=== PATIENT | female | born 1930 | race Hispanic/Latino ===

== ENCOUNTER 2016-09-09 00:33 | Inpatient (IN) | payer MEDICARE ==
[2016-09-09] MEDS ORDERED: Levalbuterol 1.25 MG/3 ML Inhal Soln UD IH STA ×2 (01:14)
[2016-09-09] MEDS ORDERED: Ipratropium 0.02% Inhal Soln (0.5 mg/2.5 ml) UD IH STA ×2 (01:14→01:15)
--- NOTE | 2016-09-09 01:15 | ED PDOC ---
Arrival/HPI - General Chief Complaint: Shortness Of Breath Time Seen by Provider: 09/09/16 01:08 Historian: Patient - History of Present Illness Narrative History of Present Illness (Text): 09/09/16 01:12 Ana Galarza is an 86 year old female, whose past medical history includes whose past medical history includes COPD, recurrent bronchitis, hypertension, and CAD, who presents to the Emergency department complaining of shortness of breath since yesterday morning. Patient states she has been using nebulizer treatments at home without significant relief. Patient also complaining of worsening swelling to bilateral lower extremities after she twisted her left leg 1 week ago. Patient denies any fever, chills, chest pain, cough, nausea, vomiting, diarrhea, urinary symptoms, back pain, neck pain, vision changes, headache, dizziness, or any other complaints. PMD: Dr. 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 ago cabg - Pulmonary Hx Chronic Obstructive Pulmonary Disease (COPD): Yes (has homenebulizer machine) - HEENT Hx HEENT Disorder: Yes Hx Cataracts: Yes (bilateral sx) - Integumentary Hx Dermatological Disorder: Yes Other/Comment: dry skin ble, light brown moles over back, chest, abd - Musculoskeletal/Rheumatological Hx Falls: No - Gastrointestinal Hx Gastrointestinal Disorders: Yes Hx Diverticulitis: Yes Hx Gastroesophageal Reflux: Yes - Genitourinary/Gynecological Hx Genitourinary Disorders: Yes Hx Incontinence: Yes (stress when coughing) - Psychiatric Hx Depression: No Hx Emotional Abuse: No Hx Physical Abuse: No Hx Substance Use: No - Surgical History Hx Cholecystectomy: Yes - Anesthesia Hx Anesthesia: No Hx Anesthesia Reactions: No Hx Malignant Hyperthermia: No - Suicidal Assessment Feels Threatened In Home Enviroment: No Family/Social History - Physician Review Nursing Documentation Reviewed: Yes Family/Social History: No Known Family HX Smoking Status: Never Smoked Hx Alcohol Use: No Hx Substance Use: No Hx Substance Use Treatment: No Allergies/Home Meds Allergies/Adverse Reactions: Allergies No Known Allergies Allergy (Verified 09/09/16 00:51) Home Medications: Home Meds Medication Instructions Recorded Confirmed Amlodipine Besylate 5 mg PO DAILY 11/30/11 03/26/15 Atorvastatin Calcium [Lipitor] 20 mg PO DAILY 11/30/11 03/26/15 Metoprolol Succinate [Toprol XL] 50 mg PO DAILY 11/30/11 03/26/15 Omeprazole 20 mg PO DAILY 11/30/11 03/26/15 Ramipril 5 mg PO DAILY 11/30/11 03/26/15 Alprazolam [Xanax] 0.25 mg PO BID 07/19/14 03/26/15 Primidone 50 mg PO DAILY 07/19/14 03/26/15 Review of Systems - Physician Review All systems were reviewed & negative as marked: Yes - Review of Systems Constitutional: Normal. absent: Fevers Eyes: Normal. absent: Vision Changes ENT: Normal Respiratory: SOB. absent: Cough Cardiovascular: Normal. absent: Chest Pain Gastrointestinal: Normal. absent: Abdominal Pain, Diarrhea, Nausea, Vomiting Genitourinary Female: Normal. absent: Dysuria, Frequency, Hematuria, Urine Output Changes Musculoskeletal: Other (+BLE swelling). absent: Back Pain, Neck Pain Skin: Normal Neurological: Normal. absent: Headache, Dizziness Endocrine: Normal Hemo/Lymphatic: Normal Psychiatric: Normal Physical Exam Vital Signs Reviewed: Yes Vital Signs Temp Pulse Resp BP Pulse Ox 09/09/16 07:19 126 H 18 148/101 H 09/09/16 04:30 138/89 09/09/16 02:35 128 H 178/75 H 09/09/16 01:16 18 09/09/16 00:51 97.6 F 129 H 25 H 135/76 97 Temperature: Afebrile Blood Pressure: Normal Pulse: Tachycardic Respiratory Rate: Normal Appearance: Positive for: Well-Appearing, Non-Toxic, Comfortable Pain Distress: None Mental Status: Positive for: Alert and Oriented X 3 - Systems Exam Head: Present: Atraumatic, Normocephalic Pupils: Present: PERRL Extroacular Muscles: Present: EOMI Conjunctiva: Present: Normal Mouth: Present: Moist Mucous Membranes Neck: Present: Normal Range of Motion Respiratory/Chest: Present: Decreased Breath Sounds (Significantly decreased breath sounds bilaterally). No: Respiratory Distress, Accessory Muscle Use Cardiovascular: Present: Normal S1, S2, Irregular Rhythm (Irregular, regular), Tachycardic. No: Murmurs Abdomen: Present: Normal Bowel Sounds. No: Tenderness, Distention, Peritoneal Signs Upper Extremity: Present: Normal Inspection. No: Cyanosis, Edema Lower Extremity: Present: Edema (Trace edema to bilateral lower extremities), NORMAL PULSES, Tenderness (Tenderness over left 4th and 5th metatarsals) Neurological: Present: GCS=15, CN II-XII Intact, Speech Normal Skin: Present: Warm, Dry, Normal Color. No: Rashes Psychiatric: Present: Alert, Oriented x 3, Normal Insight, Normal Concentration Medical Decision Making ED Course and Treatment: 09/09/16 01:12 Impression: 86 year old female complaining of shortness of breath since yesterday, BLE swelling for 1 week. Plan: -- EKG -- Chest X-ray -- Labs, cardiac enzymes, D-dimer, BNP, blood cultures -- UA -- XR Left Foot -- US Duplex Lower Extremities -- Atrovent -- Xoponex -- Solu-medrol -- Reassess and disposition Prior Visits: Notes and results from previous visits were reviewed. Progress Notes: Reviewed EKG, a fib at 136 bpm. Previous EKG was sinus rhythm. Otherwise no ST/ T wave changes. Normal axis. 09/09/16 02:53 Reviewed radiology, Chest X-ray shows right-sided pleural effusion. 09/09/16 03:36 Reviewed sono, US Duplex Lower Extremities are negative for DVT. 09/09/16 05:56 Patient with CHF, COPD, and rapid afib. Case discussed with Dr. Cheatham, who is aware and agree with plan. Accepts pt in to his service. 09/09/16 08:05 CTA shows no PE. - Lab Interpretations Lab Results: 09/09/16 02:30 09/09/16 03:10 Lab Results 09/09/16 03:10: Sodium 142, Potassium 3.8, Chloride 106, Carbon Dioxide 27, Anion Gap 13, BUN 10, Creatinine 0.8, Est GFR ( Amer) > 60, Est GFR (Non- Af Amer) > 60, Random Glucose 103, Calcium 8.4, Magnesium 1.7, Total Bilirubin 0.5, AST 39, ALT 31, Alkaline Phosphatase 144 H, Lactate Dehydrogenase 587, Total Creatine Kinase 58, Troponin I < 0.01, NT-Pro-B Natriuret Pep 4120 H, Total Protein 6.5, Albumin 3.4, Globulin 3.1, Albumin/Globulin Ratio 1.1, Lipase 90 09/09/16 02:30: WBC 5.7 D, RBC 3.48 L, Hgb 10.1 L, Hct 32.4 L, MCV 93.1, MCH 29.0, MCHC 31.2, RDW 14.6 H, Plt Count 190, MPV 10.2, Gran % 68.7 H, Lymph % ( Auto) 20.6 L, [place] % (Auto) 8.4 H, Eos % (Auto) 1.6, Baso % (Auto) 0.7, Gran # 3.95, Lymph # 1.2, [place] # 0.5, Eos # 0.1, Baso # 0.04, PT 11.1, INR 1.03, APTT 27.3, D-Dimer, Quantitative 1.06 H I have reviewed the lab results: Yes - RAD Interpretation Radiology Orders: 09/09/16 01:12 FOOT LEFT 3 VIEWS ROUTINE [RAD] Stat 09/09/16 01:15 CHEST TWO VIEWS (PA/LAT) [RAD] Stat DUPLEX LOWER EXTRM VEIN BILAT [US] Stat 09/09/16 03:22 ANGIO CHEST PE PROTOCOL [CT] Stat Land Leveler: ED Physician - EKG Interpretation Interpreted by ED Physician: Yes Type: 12 lead EKG - Medication Orders Current Medication Orders: Alprazolam (Xanax) 0.25 mg PO BID PRN; Protocol PRN Reason: Anxiety Stop: 09/16/16 10:01 Atorvastatin Calcium (Lipitor) 20 mg PO DAILY [facility] Levalbuterol HCl (Xopenex) 0.63 mg IH TIDRESP MULUGETA Metoprolol Succinate (Toprol Xl) 50 mg PO DAILY [facility] Non-Formulary Medication (Amlodipine Besylate [Amlodipine Besylate]) 5 mg PO DAILY [facility] Non-Formulary Medication (Ramipril [Ramipril]) 5 mg PO DAILY [facility] Primidone (Mysoline) 50 mg PO DAILY [facility] Discontinued Medications Diltiazem HCl (Cardizem) 5 mg IVP STAT STA Stop: 09/09/16 01:17 Last Admin: 09/09/16 02:35 Dose: 5 MG MAR Pulse and Blood Pressure Document 09/09/16 02:35 DENICE (Rec: 09/09/16 02:36 DENICE [id number]) Pulse Pulse Rate (60-90) 128 Blood Pressure Blood Pressure (100/60-150/90) 178/75 IVP Administration Document 09/09/16 02:35 DENICE (Rec: 09/09/16 02:36 DENICE [id number]) Charges for Administration # of IVP Administrations 1 Diltiazem HCl (Cardizem) 5 mg IVP STAT STA Stop: 09/09/16 08:02 Furosemide (Lasix) 40 mg IVP STAT STA Stop: 09/09/16 02:57 Last Admin: 09/09/16 04:30 Dose: 40 MG MAR Blood Pressure Document 09/09/16 04:30 DENICE (Rec: 09/09/16 07:05 DENICE [id number]) Blood Pressure Blood Pressure (100/60-150/90) 138/89 IVP Administration Document 09/09/16 04:30 DENICE (Rec: 09/09/16 07:05 DENICE [id number]) Charges for Administration # of IVP Administrations 1 Furosemide (Lasix) Confirm Administered Dose 40 mg .ROUTE .STK-MED ONE Stop: 09/09/16 07:02 Last Admin: 09/09/16 07:55 Dose: Iodixanol (Visipaque 320 Mg/Ml 100 Ml) Confirm Administered Dose 100 ml IV .STK- MED ONE Stop: 09/09/16 05:[address] [place] (Atrovent) 0.5 mg IH STAT STA Stop: 09/09/16 01:15 Last Admin: 09/09/16 02:35 Dose: 0.5 MG Ipratropium [place] (Atrovent) 0.5 mg IH STAT STA Stop: 09/09/16 01:16 Last Admin: 09/09/16 02:57 Dose: 0.5 MG Levalbuterol HCl (Xopenex) 1.25 mg IH STAT STA Stop: 09/09/16 01:15 Last Admin: 09/09/16 02:35 Dose: 1.25 MG Levalbuterol HCl (Xopenex) 1.25 mg IH STAT STA Stop: 09/09/16 01:15 Last Admin: 09/09/16 02:57 Dose: 1.25 MG Methylprednisolone (Solu-Medrol) 125 mg IVP STAT STA Stop: 09/09/16 01:14 Last Admin: 09/09/16 02:35 Dose: 125 MG IVP Administration Document 09/09/16 02:35 DENICE (Rec: 09/09/16 02:35 DENICE [id number]) Charges for Administration # of IVP Administrations 1 - Scribe Statement The provider has reviewed the documentation as recorded by the Lizzibtimbo Larson Provider Attestation: All medical record entries made by the Lizzibtimbo were at my direction and personally dictated by me. I have reviewed the chart and agree that the record accurately reflects my personal performance of the history, physical exam, medical decision making, and the department course for this patient. I have also personally directed, reviewed, and agree with the discharge instructions and disposition. Disposition/Present on Arrival - Present on Arrival Any Indicators Present on Arrival: No History of DVT/PE: No History of Uncontrolled Diabetes: No Urinary Catheter: No History of Decub. Ulcer: No History Surgical Site Infection Following: None - Disposition Have Diagnosis and Disposition been Completed?: Yes Diagnosis: COPD exacerbation, Congestive heart failure, Rapid atrial fibrillation Disposition: HOSPITALIZED Disposition Time: 05:45 Patient Plan: Admission, Telemetry Patient Problems: Current Active Problems Problem Status Diagnosed COPD exacerbation Acute Condition: FAIR
[2016-09-09 02:40] LABS: ADD MANUAL DIFF? NO
[2016-09-09 03:03] LABS: BASO # 0.04 K/mm3 (0.0-2.0); BASO % 0.7 % (0.0-3.0); EOS # 0.1 (0.0-0.7); EOS % 1.6 % (1.5-5.0); GRAN # 3.95 (1.4-6.5); GRAN % 68.7 % (50.0-68.0); HEMATOCRIT 32.4 % (36.0-48.0); LYMPH # 1.2 (1.2-3.4); LYMPH % 20.6 % (22.0-35.0); MEAN CELL VOLUME 93.1 fL (80.0-105.0); MEAN CORPUSCULAR HGB CONC 31.2 g/dl (31.0-37.0); MEAN PLATELET VOLUME 10.2 fl (7.0-11.0); MONO # 0.5 (0.1-0.6); MONO % 8.4 % (1.0-6.0); PLATELET COUNT 190 10^3/uL (120.0-450.0); RED CELL DISTRIBUTION WIDTH 14.6 % (11.5-14.5); WHITE BLOOD COUNT 5.7 10^3/ul (4.5-11.0)
[2016-09-09 03:19] LABS: D DIMER 1.06 mg/L FEU (0-0.50); INR 1.03 (0.93-1.08); PARTIAL THROMBOPLASTIN TIME 27.3 Seconds (23.7-30.8)
[2016-09-09 04:01] LABS: ALB/GLOB RATIO 1.1 (1.1-1.8); ALKALINE PHOSPHATASE 144 U/L (38-133); ALT/SGPT 31 U/L (7-56); AST/SGOT 39 U/L (15-39); BILIRUBIN,TOTAL 0.5 mg/dL (0.2-1.3); BLOOD UREA NITROGEN 10 mg/dL (7-21); CALCIUM 8.4 mg/dL (8.4-10.5); CARBON DIOXIDE 27 mmol/L (21-33); CHLORIDE 106 mmol/L (98-107); GFR AFRICAN-AMERICAN > 60; GLUCOSE,RANDOM 103 mg/dL (70-110); LIPASE 90 U/L (23-300); MAGNESIUM 1.7 mg/dL (1.7-2.2); POTASSIUM 3.8 mmol/L (3.6-5.0); SODIUM 142 mmol/L (132-148); TOTAL PROTEIN 6.5 g/dL (5.8-8.3)
[2016-09-09 04:29] LABS: TROPONIN I < 0.01 ng/mL
[2016-09-09] MEDS ORDERED: Iodixanol 320 MG/ML 100 ML BOTTLE IV ONE (05:09)
[2016-09-09] MEDS: Metoprolol Succinate 50 mg XL Tab PO SCH (08:19)
[2016-09-09] MEDS ORDERED: Fluticasone Nasal 50 mcg/Spray NS STA (08:33)
--- NOTE | 2016-09-09 08:38 | US ---
HISTORY: Leg pain and swelling. Evaluate for DVT PHYSICIAN(S): Dariel Leone MD. TECHNIQUE: Duplex sonography and color-flow Doppler with graded compression were used to evaluate the deep venous systems of both lower extremities. FINDINGS: The visualized deep venous systems of both lower extremities are sonographically normal and compressible. Normal wave forms and augmentation are seen. There is no sonographic evidence for deep venous thrombosis in the visualized segments of both lower extremities. IMPRESSION: No sonographic evidence for deep venous thrombosis in the visualized segments of both lower extremities.
--- NOTE | 2016-09-09 08:45 | CT ---
PROCEDURE: CT Chest with contrast (Pulmonary Angiogram) HISTORY: sob - r/o PE COMPARISON: None available. TECHNIQUE: Axial computed tomography images were obtained of the chest in the pulmonary arterial phase of enhancement. Coronal and sagittal reformatted images were created and reviewed. Maximum intensity projection (MIP) reconstructed images in the following planes: Coronal projection only Intravenous contrast dose: 96 cc Visipaque 320 Mean Hounsfield unit values in the main pulmonary artery: 528.1 Radiation dose: Total exam DLP = 216.86 mGy-cm. This CT exam was performed using one or more of the following dose reduction techniques: Automated exposure control, adjustment of the mA and/or kV according to patient size, and/or use of iterative reconstruction technique. FINDINGS: PULMONARY ARTERIES: Unremarkable. No pulmonary embolism. AORTA: No acute findings. No thoracic aortic aneurysm. LUNGS: Consolidative changes lower lobes. No suspicious pulmonary nodules, masses or other significant abnormalities. PLEURAL SPACES: Small bilateral pleural effusions. HEART: Cardiomegaly. No evidence of acute, significant cardiovascular disease. LYMPH NODES: No lymphadenopathy. BONES, CHEST WALL: Unremarkable. No fracture or destructive lesion OTHER FINDINGS: Moderate hiatal hernia. IMPRESSION: Negative study for pulmonary embolism. Dependent atelectasis, infiltrates and small pleural effusions. Concordant results (preliminary interpretation) provided by [employer] Procedure Completed: 06:32. Preliminary ([facility]) Report: Dictated and Authenticated: 07:30. Final Interpretation: 08:43. September 09, 2016.
--- NOTE | 2016-09-09 09:14 | HP ---
CHIEF COMPLAINT AND HISTORY OF PRESENT ILLNESS: This is an 86-year-old female who is coming in to [facility] with complaints of shortness of breath that has been progressively getting worse over the last few days. She has a history of COPD, hypertension, coronary artery disease. She said that the shortness of breath became worse yesterday. She had been using her nebulizer treatments but they wer e not helping. She was also complaining of lower extremity edema. She denies any chest pain. No na usea, no vomiting. No fever, no headaches or chills. No dysuria or frequency. No weakness in the a monae or the legs. No pain in the abdomen or the back. REVIEW OF SYSTEMS: All of the review of symptoms are within normal limits except as mentioned. ALLERGIES: No known drug allergies. HOME MEDICATIONS: Amlodipine, Lipitor, Toprol, omeprazole, Ramipril, Xanax, and primidone. PAST MEDICAL HISTORY: COPD, sinusitis, hypertension, coronary artery disease. PAST SURGICAL HISTORY: CABG, bilateral cataract surgery. FAMILY HISTORY: Noncontributory. SOCIAL HISTORY: No smoking or drinking. PHYSICAL EXAMINATION: VITAL SIGNS: Temperature is 97.6, pulse of 140, blood pressure 152/92, respirations 18. Height is 4 feet 10 inches, weight is 100 pounds, BMI is 20.9. GENERAL: Patient lying in bed, flat, and in no apparent distress. HEAD AND NECK EXAM: Atraumatic, normocephalic. Conjunctivae are pink. Throat clear and mouth with moist mucosa. Oropharynx benign. EYES: Extraocular movements are intact. PERRLA. NECK: Supple. No JVD, thyromegaly, or adenopathy. No bruits. HEART: S1 and S2 tachycardia, III/ systolic ejection murmur. No rubs or gallops. LUNGS: Clear to auscultation bilaterally. No wheezing rales or rhonchi appreciated. No retraction s on exam. ABDOMEN: Soft, nontender, nondistended. Bowel sounds are positive in all quadrants. No rebound. No hepatosplenomegaly. EXTREMITIES: No cyanosis or clubbing. In the lower extremities there is 1+ edema. NEURO: No facial asymmetry, tongue is midline, no uvula deviation. Power is 5/5 in upper extremity and 5/5 in lower extremity. Sensation is normal in upper extremity and lower extremity. PSYCH: Awake, alert, oriented x3. No anxiety or depression symptoms. Good insight. Normal affec t. : No CVA tenderness VASCULAR: 2+ pulses in carotid and pedal pulses. SKIN: No erythema or abnormal nodules noted. SPINE: Normal curvature. LYMPHADENOPATHY: No anterior cervical or posterior cervical adenopathy. No inguinal adenopathy. LABORATORY DATA: White count of 5.7, hemoglobin 10.1, platelet count is 190. INR is 1.03. D-dimer is 1.06. Chemistry shows a sodium 142, potassium 3.8, creatinine 0.8, alk phos of 144, albumin is 3. 4. EKG shows AFib at 136, nonspecific ST changes. Chest x-ray shows right-sided pleural effusion. CT o f the chest done shows bilateral pleural effusion. ASSESSMENT: 1. Acute congestive heart failure exacerbation. 2. Rapid atrial fibrillation. 3. Chronic obstructive pulmonary disease, acute. 4. Hypertension. 5. Coronary artery disease. 6. Coronary artery disease, status post coronary artery bypass graft. 7. Dyslipidemia. PLAN: The patient is going to be admitted to the hospital. I will admit her to the telemetry floor. She was given Cardizem because of the atrial fibrillation. She was given steroids and nebulizer tr eatments. I will continue her on Xopenex because of tachycardia and the fact that she needs nebulize rs to help her with her breathing. She is going to continue with steroids. I will get Dr. Saumya Friedman to evaluate the patient. I did see Dr. Kerns. We went over the patient's CT. She h as left foot x-ray that is pending. She has blood cultures that are pending. I will get a TSH. Als o check her troponins. The patient's initial troponin was negative and a proBNP was 412. She will m ost likely need physical therapy and, if she qualifies, may need rehabilitation. Wilfred Cheatham MD cc: [id number] TT: 09/09/2016 09:13:14 hi
--- NOTE | 2016-09-09 09:15 | CON ---
DATE: 09/09/2016 PULMONARY CONSULTATION REASON FOR CONSULTATION: Chronic obstructive pulmonary disease. REFERRING PHYSICIAN: Wilfred Cheatham MD. I did discuss the case with the Emergency Room physician (Dr. Juarez) at length. I also discussed the case with the patient at length, and reviewed the chart at length. HISTORY OF PRESENT ILLNESS: The patient is an 86-year-old female with past medical history significant for advanced chronic obstructive pulmonary disease, recurrent bronchitis, chronic sinusitis, coronary artery disease, hypertension, who presents to [facility] with worsening shortness of breath at rest, dyspnea on exertion, and cough for the past 2 days. The patient denies sputum production. The patient also denies chest pain, coughing up of blood, or chest pain - made worse with deep respirations. There is no history of temperatures, chills, or infectious exposure. There is no history of night sweats, weight loss or appetite change prior to the above events. No history of leg or calf pains. However,the patient does state to bilateral leg swelling over the past few days. No history of syncope or diaphoresis. No history of recent travel or trauma. REVIEW OF SYSTEMS: The patient does complain of constant postnasal drip. No history of nausea, vomiting, or diarrhea. No acute urinary symptoms. No new neurological or musculoskeletal complaints. The rest of the review of systems is negative. ALLERGIES: No known allergies. SOCIAL HISTORY: Positive for tobacco, negative for alcohol. FAMILY HISTORY: No inheritable diseases. HOME MEDICATIONS: Include prednisone, ramipril, primidone, omeprazole, Toprol, Lipitor, amlodipine, and Xanax. PHYSICAL EXAMINATION: GENERAL: The patient is not short of breath at rest. She is not using accessory muscles for breathing. VITAL SIGNS: Temperature is 97.6. Pulse is 130 (atrial fibrillation), respiratory rate 18, blood pressure 129/82. Oxygen saturation on nasal cannula is 97%. HEENT: Normocephalic, atraumatic. NECK: No JVD. CARDIOVASCULAR: Systolic ejection murmur at the lower left sternal border. Positive S3 gallop. LUNGS: Decreased breath sounds at the bases with crackles. Minimal bilateral rhonchi. No wheezing. EXTREMITIES: No clubbing, cyanosis, or edema. Calves are nontender to palpation. GASTROINTESTINAL: Abdomen is soft, nontender, nondistended. Bowel sounds are positive. SKIN: No acute rash. NEUROLOGIC: Limited at the present time. PERTINENT LABORATORY DATA: Chest x-ray was done yesterday and reviewed. There is a mild increase in the pulmonary vascular congestive changes noted with bilateral pleural effusions. I have also reviewed the CAT scan of the chest - done as an angiogram protocol. There is no pulmonary embolism noted. There is mild interstitial edema noted. There are also bilateral pleural effusions noted (right worse than left) . There is compressive atelectasis adjacent to the pleural effusions. There is also some possible mucous plugging noted at the right base. EKG was done in the Emergency Room. Results: Rapid atrial fibrillation. CBC: White count 5.7, hemoglobin 10.1, hematocrit 32.4, platelets of 190. Complete metabolic profile: Alkaline phosphatase 144, B-type natriuretic peptide 4120. The rest of the metabolic profile is within normal limits. IMPRESSION: 1. Acute bronchitis. 2. Advanced chronic obstructive pulmonary disease. 3. Acute congestive heart failure. 4. Rapid atrial fibrillation. 5. Bilateral pleural effusions. 6. Mild anemia. PLAN: Again, I did discuss the case with Dr. Juarez (Emergency Room) and the patient at length. The patient presents to [facility] with a 2-day history of worsening pulmonary symptoms. There is no history of fevers, chills , or infectious exposure. I did review the CAT scan of the chest. There is no pulmonary embolism noted. There is mild interstitial edema noted with bilateral pleural effusions (right worse than left). There is also some compressive atelectasis adjacent to the pleural effusions, as well as some possible mucous plugging noted at the right base. On physical exam, the patient is in mild bronchospasm. However, there is no significant alveolar arterial gradient. Oxygen saturation on nasal cannula is 96-97%. The patient has been started on nebulizer treatments and low-dose intravenous steroids by Dr. Cheatham. I will also add inhaled Pulmicort, as well as nasal steroids. One of the patient's main complaints is her constant postnasal drip. I have also reviewed the laboratory data. There is a significant increase in the B-type natriuretic peptide noted. In addition, the patient presents with bilateral pleural effusions. The patient has been given Lasix in the Emergency Room and started on daily Lasix. Dr. Friedman has been called on the case for a cardiology evaluation. The patient remains in rapid atrial fibrillation. The patient does feel better this morning - compared to the past few days. She remains very guarded overall. Additional pulmonary intervention will be based on the clinical status of the patient. I did discuss the above with Dr. Cheatham at length. Thank you very much for this pulmonary consultation. José Miguel Kerns MD cc: [id number] TT: 09/09/2016 09:14:39 Confirmation # [id number] Dictation # [id number] MTDD
--- NOTE | 2016-09-09 09:27 | RAD ---
HISTORY: sob COMPARISON: 03/25/2015 TECHNIQUE: Chest PA and lateral FINDINGS: LUNGS: No active pulmonary disease. PLEURA: Bilateral small pleural effusion. CARDIOVASCULAR: Sternotomy wires. Mitral valvular prosthesis. OSSEOUS STRUCTURES: No significant abnormalities. VISUALIZED UPPER ABDOMEN: Normal. OTHER FINDINGS: None. IMPRESSION: Bilateral pleural effusion. No infiltrate.
--- NOTE | 2016-09-09 09:29 | RAD ---
PROCEDURE: Left Foot Radiographs. HISTORY: L foot pain COMPARISON: None. FINDINGS: BONES: Head of 4th and 5th minimally displaced fractures of the head of the 3rd and 4th metatarsal. No other fracture. JOINTS: Flexion deformity 2nd 3rd and 4th digits. SOFT TISSUES: Normal. OTHER FINDINGS: None. IMPRESSION: Fracture head of 3rd and 4th metatarsal.
[2016-09-09] MEDS: Fluticasone Nasal 50 mcg/Spray NS SCH (10:13)
--- NOTE | 2016-09-09 11:28 | CARD ---
APPROVED REPORT EKG Measurement Heart [id number] <Conclusion> Atrial fibrillation with rapid ventricular response , new NSSTW changes Prolonged QTc
[2016-09-09] MEDS: Levalbuterol 0.63 MG/3 ML Inhal Soln UD IH SCH ×2 (14:30→19:32)
[2016-09-09 15:51] VITALS: BMI 20.9
[2016-09-09] MEDS ORDERED: Pneumococcal 23-Valent Vaccine IM ONE (15:52)
[2016-09-09] MEDS: diltiaZEM IVPB 100mg in NS 100 ML IV PRN (16:27)
[2016-09-09] MEDS: Budesonide 0.5 mg/2 ml Inhal Susp UD IH SCH (19:32)
--- NOTE | 2016-09-10 06:57 | PN ---
DATE: 09/10/2016 SUBJECTIVE: The patient appears much more comfortable this morning. She is not short of breath at rest. OBJECTIVE: VITAL SIGNS: Temperature is 97.7, pulse 71, respirations 18/20, blood pressure 132/63. Oxygen saturation on nasal cannula is 97%. HEENT: Normocephalic, atraumatic. No JVD. CARDIOVASCULAR: Systolic ejection murmur at the lower left sternal border. Positive S3 gallop. LUNGS: Decreased breath sounds at the bases with crackles. Much less rhonchi. No wheezing. EXTREMITIES: No clubbing, cyanosis, or edema. Calves are nontender to palpation. GASTROINTESTINAL: Abdomen is soft, nontender, nondistended. Bowel sounds are positive. SKIN: No acute rash. NEUROLOGIC: Limited at the present time. IMPRESSION: 1. Acute bronchitis. 2. Advanced chronic obstructive pulmonary disease. 3. Acute congestive heart failure. 4. Rapid atrial fibrillation. 5. Bilateral pleural effusions. 6. Mild anemia. PLAN: The patient appears much more comfortable this morning. She is not short of breath at rest. She states she is feeling much better overall. On physical exam, her bronchospasm is significantly less. In addition, the oxygen saturation on nasal cannula is now 97%. I will continue with the current nebulizer treatments and low-dose intravenous steroids for now. The patient also states to much less nasal symptoms. I will continue with the Flonase. I would continue with the treatment for congestive heart failure and rapid atrial fibrillation as per cardiology. Input by Dr. Friedman is noted. The patient remains on a Cardizem drip. The patient also remains on Lasix. The ventricular response much more controlled this morning. Clinical status of the patient is certainly improved -- compared to yesterday. However, the overall status/prognosis for this very elderly patient with multiple medical problems - - does remain guarded. I will discuss the above with Dr. Cheatham. José Miguel Kerns MD cc: [phone] TT: 09/10/2016 06:56:36 Confirmation # [id number] Dictation # [id number] jn SHITAL
[2016-09-10 07:29] LABS: HEMATOCRIT 33.6 % (36.0-48.0); MEAN CELL VOLUME 92.1 fL (80.0-105.0); MEAN CORPUSCULAR HEMOGLOBIN 28.8 pg (25.0-35.0); MEAN CORPUSCULAR HGB CONC 31.3 g/dl (31.0-37.0); MEAN PLATELET VOLUME 10.1 fl (7.0-11.0); RED CELL DISTRIBUTION WIDTH 14.6 % (11.5-14.5); WHITE BLOOD COUNT 6.9 10^3/ul (4.5-11.0)
[2016-09-10 07:52] LABS: TROPONIN I 0.02 ng/mL
[2016-09-10 07:59] LABS: ALB/GLOB RATIO 1.2 (1.1-1.8); ALKALINE PHOSPHATASE 140 U/L (38-133); ALT/SGPT 34 U/L (7-56); AST/SGOT 32 U/L (15-39); BILIRUBIN,TOTAL 0.6 mg/dL (0.2-1.3); BLOOD UREA NITROGEN 22 mg/dL (7-21); CALCIUM 8.6 mg/dL (8.4-10.5); CARBON DIOXIDE 31 mmol/L (21-33); CHLORIDE 99 mmol/L (98-107); GFR AFRICAN-AMERICAN > 60; GLUCOSE,RANDOM 90 mg/dL (70-110); POTASSIUM 3.7 mmol/L (3.6-5.0); SODIUM 137 mmol/L (132-148); TOTAL PROTEIN 6.6 g/dL (5.8-8.3)
[2016-09-10] MEDS: Budesonide 0.5 mg/2 ml Inhal Susp UD IH SCH ×2 (08:25→19:24)
[2016-09-10] MEDS: Levalbuterol 0.63 MG/3 ML Inhal Soln UD IH SCH ×3 (08:26→19:24)
[2016-09-10] MEDS: MethylPREDNISolone 40 mg Vial IVP SCH (10:21)
[2016-09-10] MEDS: diltiaZEM IVPB 100mg in NS 100 ML IV PRN (10:23)
[2016-09-10] MEDS: Metoprolol Succinate 50 mg XL Tab PO SCH (10:23)
--- NOTE | 2016-09-10 10:47 | CON ---
DATE: 09/10/2016 INDICATIONS: Atrial fibrillation with rapid ventricular response. This is an 86-year-old woman admitted on the with shortness of breath which was getting worse. She came to the Emergency Room and was found to have atrial fibrillation with rapid ventricular response. This responded to IV Cardizem. This morning, she is more comfortable, resting in bed, without shortness of breath. She still has atrial fibrillation, but with a moderate ventricular response. There was no chest pain, orthopnea, PND, syncope, presyncope, lightheadedness, dizziness or vertigo. There was no fever, chills, cough, sputum production or hemoptysis. There was no abdominal pain, nausea, vomiting, diarrhea, constipation, or melena. PAST MEDICAL HISTORY: Notable for COPD, bronchitis, sinusitis, hypertension, coronary artery disease with remote MVR and coronary bypass surgery and bilateral cataract surgery. There is no history of rheumatic fever, myocardial infarction, congestive heart failure, stroke, TIA, diabetes or gout. MEDICATIONS: At the time of admission included ramipril, Lipitor, aspirin, Norvasc, omeprazole, primidone, metoprolol, Xanax, prednisone. ALLERGIES: There are no known medication allergies. SOCIAL HISTORY: She lives at home. She does not smoke cigarettes. She does not drink alcohol. She is ambulatory and usually very active. FAMILY HISTORY: Noncontributory. REVIEW OF SYSTEMS: A 10-point is otherwise unremarkable except as noted above. PHYSICAL EXAMINATION: GENERAL: She is a well-developed, elderly woman, lying in bed, in telemetry, in no acute distress. VITAL SIGNS: Heart rhythm is atrial fibrillation at 71 beats per minute. She is afebrile. Blood pressure 132/63, respirations 19-20, O2 sat 97% on nasal cannula. HEENT: Reveals no neck vein distention, thyromegaly, or carotid bruits. Mucous membranes moist. Conjunctivae pink. NECK: Supple. LUNG JURADO: Scattered rhonchi. HEART: Revealed an irregular rhythm, normal first and second heart sounds. There is a systolic murmur along the left sternal border. The PMI is not displaced. ABDOMEN: Soft. Bowel sounds are present. No mass, organomegaly, tenderness, rebound, or guarding. EXTREMITIES: Revealed no cyanosis or clubbing. There was mild pedal edema. NEUROLOGIC: She was awake, alert and oriented. PSYCHIATRIC: Normal as to mood and affect. SKIN: Warm and dry. No rash or cellulitis. LABORATORY AND IMAGING: EKG demonstrated atrial fibrillation with rapid ventricular response. A left foot x-ray reveals fracture of the 3rd and 4th metatarsal. Chest x-ray revealed bilateral pleural effusion. Extremity ultrasound revealed no evidence of DVT. A CT scan of the chest revealed no evidence of PE. White count normal, hemoglobin 10.5, hematocrit 33.6, platelet count normal. PT, INR, PTT unremarkable. D-dimer 1.06. Electrolytes, BUN, creatinine, blood sugar unremarkable. LFTs unremarkable. CK 58. Troponins negative x 2. BNP 4120. Lipase 90. TSH 0.4. IMPRESSION: The patient an 86-year-old woman with known chronic obstructive pulmonary disease, status post open heart surgery for MVR and coronary bypass surgery (details unavailable at this time), who presents with progressive shortness of breath and is found to have atrial fibrillation with rapid ventricular response, apparently a new rhythm. She has responded well to treatment so far which has included IV Cardizem drip, which has controlled her ventricular rate. She is also getting ramipril, respiratory treatments, Lasix, Lipitor, primidone, Pulmicort, Solu-Medrol, metoprolol. An echocardiogram is ordered. She has been cultured. I will review her old records. We will switch from IV to p.o. Cardizem. We will continue metoprolol. I will check her echocardiogram once it is completed. She is getting pulmonary treatments. We will monitor I's and O's. We will check stool for occult blood. I will follow along with you. I will make additional recommendations based on her clinical course. Overall, a conservative approach to her cardiac care is anticipated. Juanjo Friedman MD cc: [phone] TT: 09/10/2016 10:45:59 Confirmation # [id number] Dictation # [id number] en MTDD
[2016-09-10] MEDS: Fluticasone Nasal 50 mcg/Spray NS SCH (11:30)
--- NOTE | 2016-09-10 12:11 | PN ---
DATE: 09/10/2016 The patient is an 86-year-old, seen and examined, lying in bed, seems to be comfortable. On monitor, her heart rate is 71. The patient came in because of increasing shortness of breath and she was fou nd to be in rapid AFib, has been on Cardizem drip and rate seems to be controlled on Cardizem drip. We will switch to p.o. Cardizem. Since she a history of COPD, increasing beta kyle might not be f easible. Will start her on 30 q. 8. PHYSICAL EXAMINATION: GENERAL: She is awake and alert, communicative, anxious to go home. She states she wants to be home on Tuesday. VITAL SIGNS: Today, she is afebrile, pulse 71, respirations 18, blood pressure 132/63. LUNGS: Bilateral fair airflow. Diffusely decreased breath sounds because of COPD. HEART: Irregular rate control. ABDOMEN: Soft, nontender, no rebound, no guarding. NEUROLOGIC: She is awake and alert, communicative. Moves all extremities. EXTREMITIES: No leg edema. No ulcers. No erythema on the legs. LABORATORY EXAMINATION: WBC 6.9, hemoglobin 10.5, hematocrit 33.6, platelet 207. PT 11.1, INR 1.03. Chemistry: Sodium 137, potassium 3.7, chloride 99, CO2 31, BUN 22, creatinine 1.0, blood sugar of 90. BNP was 4120. Her TSH is 0.50. ASSESSMENT: 1. Rapid atrial fibrillation. 2. Hypertension. 3. History of chronic obstructive pulmonary disease. 4. Hyperlipidemia. 5. Anxiety disorder. 6. Steroid-dependent chronic obstructive pulmonary disease. PLAN: We will taper down her Cardizem drip. Started her on diltiazem 30 mg t.i.d. and her IV drip c an be discontinued 1 hour after giving p.o. dose of Cardizem. Spoke to the nurse practitioner and we will continue her on Flonase. She is getting Lasix 40 mg IV daily. We will follow up her CBC, CMP, electrolytes in a.m. She is not on anticoagulation at this point, reason unknown to me. Dr. Friedman 's input noted and appreciated. He has ordered stool for Hemoccult and patient seems to be anemic, s o if her stool for Hemoccult is negative, should think of putting her on Eliquis. I will discuss ender Friedman about it. Noreen Tierney MD cc: [phone] TT: 09/10/2016 12:10:35 Confirmation # [id number] Dictation # [id number] en
--- NOTE | 2016-09-10 16:24 | CON ---
DATE: 09/10/2016 The patient was seen in room 269, bed 1. HISTORY OF PRESENT ILLNESS: She has left foot pain. X-ray shows a fracture of the fourth and third metatarsal necks of that left foot with no skin irritation. This happened about a month ago. X-rays were done on admission to the hospital on 09/09/2016. X-rays show good position of the fracture with minimal callus which was kind of consistent with the fracture that occurred 4 weeks ago, but tendern ess is minimal of the left foot, but she should still walk with a postop shoe for protection of the m etatarsals so the fracture could heal quicker and more secure. After about another 2-3 weeks in the postop shoe, she can go to a walking shoe. I will be glad to follow her as an outpatient. FINAL DIAGNOSIS: Minimally displaced fracture of third and fourth metatarsals of her left foot at th e neck of the bones, which should go to eventful healing, which will be facilitated with the postoper ative shoe for support. Dillon Zee DO cc: [id number] TT: 09/10/2016 16:23:36 Confirmation # [id number] Dictation # [id number] jose
[2016-09-11 07:44] LABS: ADD MANUAL DIFF? NO
[2016-09-11] MEDS: Budesonide 0.5 mg/2 ml Inhal Susp UD IH SCH ×2 (07:56→21:01)
[2016-09-11] MEDS: Levalbuterol 0.63 MG/3 ML Inhal Soln UD IH SCH ×3 (07:56→21:01)
[2016-09-11] MEDS: Metoprolol Succinate 50 mg XL Tab PO SCH ×2 (07:58→10:03)
[2016-09-11 08:00] LABS: BASO # 0.02 K/mm3 (0.0-2.0); BASO % 0.3 % (0.0-3.0); EOS # 0.1 (0.0-0.7); EOS % 0.8 % (1.5-5.0); GRAN # 4.56 (1.4-6.5); GRAN % 69.5 % (50.0-68.0); LYMPH # 1.2 (1.2-3.4); LYMPH % 18.4 % (22.0-35.0); MEAN CELL VOLUME 92.4 fL (80.0-105.0); MEAN CORPUSCULAR HEMOGLOBIN 29.1 pg (25.0-35.0); MEAN CORPUSCULAR HGB CONC 31.5 g/dl (31.0-37.0); MEAN PLATELET VOLUME 10.3 fl (7.0-11.0); MONO # 0.7 (0.1-0.6); PLATELET COUNT 217 10^3/uL (120.0-450.0); RED CELL DISTRIBUTION WIDTH 14.9 % (11.5-14.5); WHITE BLOOD COUNT 6.6 10^3/ul (4.5-11.0)
[2016-09-11 08:12] LABS: ALB/GLOB RATIO 1.1 (1.1-1.8); ALKALINE PHOSPHATASE 131 U/L (38-133); ALT/SGPT 30 U/L (7-56); AST/SGOT 27 U/L (15-39); BILIRUBIN,TOTAL 0.5 mg/dL (0.2-1.3); BLOOD UREA NITROGEN 22 mg/dL (7-21); CALCIUM 8.6 mg/dL (8.4-10.5); CARBON DIOXIDE 33 mmol/L (21-33); CHLORIDE 98 mmol/L (95-110); GFR AFRICAN-AMERICAN > 60; GLUCOSE,RANDOM 92 mg/dL (70-110); POTASSIUM 4.4 mmol/L (3.6-5.0); SODIUM 138 mmol/L (132-148); TOTAL PROTEIN 6.5 g/dL (5.8-8.3)
--- NOTE | 2016-09-11 09:51 | CP.PCM.PN ---
Subjective - Date & Time of Evaluation Date of Evaluation: 09/11/16 Time of Evaluation: 08:00 - Subjective Subjective: Stable on 2R. No CP or SOB. V/S noted. AF with VR 70's to 144 this AM PE: Lungs: rhonchi Cor.: irreg S1S2 Abd.: soft Ext.: no edema Neuro.: alert I/O N/A Echo done: will check Labs 09/11 noted. Objective - Vital Signs/Intake and Output Vital Signs (last 24 hours): Temp Pulse Resp BP Pulse Ox 98.4 F 144 H 20 130/82 97 09/11/16 06:00 09/11/16 08:00 09/11/16 06:00 09/11/16 08:00 09/11/16 06:00 Intake and Output: 09/11/16 09/11/16 06:59 18:59 Intake Total 240 Output Total 650 Balance -410 - Medications Medications: Current Medications Alprazolam (Xanax) 0.25 mg PO BID PRN; Protocol PRN Reason: Anxiety Stop: 09/16/16 10:01 Last Admin: 09/11/16 07:58 Dose: 0.25 mg Amlodipine Besylate (Norvasc) 5 mg PO DAILY [facility] Last Admin: 09/10/16 10:22 Dose: 5 mg Atorvastatin Calcium (Lipitor) 20 mg PO DAILY [facility] Last Admin: 09/10/16 10:22 Dose: 20 mg Budesonide (Pulmicort Respules) 0.5 mg IH [id number] [facility] Last Admin: 09/11/16 07:56 Dose: 0.5 mg Diltiazem HCl (Cardizem Cd) 120 mg PO BID [facility] Fluticasone Propionate (Flonase) 1 actuation NS DAILY [facility] Last Admin: 09/10/16 11:30 Dose: 1 spr Furosemide (Lasix) 40 mg IVP DAILY [facility] Last Admin: 09/10/16 10:31 Dose: 40 mg Levalbuterol HCl (Xopenex) 0.63 mg IH TIDRESP [facility] Last Admin: 09/11/16 07:56 Dose: 0.63 mg Methylprednisolone (Solu-Medrol) 40 mg IVP DAILY [facility] Last Admin: 09/10/16 10:21 Dose: 40 mg Metoprolol Succinate (Toprol Xl) 50 mg PO DAILY [facility] Last Admin: 09/11/16 07:58 Dose: 50 mg Primidone (Mysoline) 50 mg PO DAILY [facility] Last Admin: 09/10/16 10:32 Dose: 50 mg Ramipril (Altace) 5 mg PO DAILY [facility] Last Admin: 09/10/16 10:31 Dose: 5 mg - Labs Labs: 09/11/16 07:41 09/11/16 07:41 PT 11.1 Seconds (9.9-11.8) 09/09/16 02:30 INR 1.03 (0.93-1.08) 09/09/16 02:30 APTT 27.3 Seconds (23.7-30.8) 09/09/16 02:30 Assessment and Plan - Assessment and Plan (Free Text) Plan: Assessment: Dyspnea Edema AF with RVR CAD/CABG/MVR COPD/Acute Bronchitis Pleural effusions HBP Cataract surgery Fx left 4th and 5th metatarsals Sinusitis Plan: Increase PO Cardizem to CD 120 BID trial D/C amlodipine Continue metoprolol Continue IV Lasix for now OOB/PT as germain. Check stool for occult blood. CHAD2-VASc score ~ 5. High risk for embolic event. Consider A/C (Eliquis 2.5 BID or warfarin)
[2016-09-11] MEDS ORDERED: diltiaZEM 120 mg/24 Hours CD Cap PO SCH (10:00)
[2016-09-11] MEDS: MethylPREDNISolone 40 mg Vial IVP SCH (10:02)
[2016-09-11] MEDS: diltiaZEM 120 mg/24 Hours CD Cap PO SCH ×2 (10:03→17:46)
[2016-09-11] MEDS: Fluticasone Nasal 50 mcg/Spray NS SCH (10:03)
--- NOTE | 2016-09-11 10:57 | CARD ---
APPROVED REPORT EXAM: Two-dimensional and M-mode echocardiogram with Doppler and color Doppler. Other Information Quality : FairRhythm : INDICATION Dyspnea Atrial Fibrillation Mitral Valve Disease 2D DIMENSIONS Left Atrium (2D)4.7 (1.6-4.0cm)IVSd1.2 (0.7-1.1cm) LVDd3.5 (3.9-5.9cm)PWd1.2 (0.7-1.1cm) LVDs2.7 (2.5-4.0cm)FS (%) 24.9 % LVEF (%)50.0 (>50%) M-Mode DIMENSIONS Aortic Root2.80 (2.2-3.7cm)Aortic Cusp Exc.1.40 (1.5-2.0cm) Aortic Valve AoV Peak Xjjbjbub322.0cm/Jung Peak GR.5mmHg Mitral Valve E/A ratio0.0 TDI E/Lateral E'0.0E/Medial E'0.0 Tricuspid Valve TR Peak [id number]/sRAP [id number] Peak Gr.37mmHg [id number] LEFT VENTRICLE The left ventricle is normal size. There is normal left ventricular wall thickness. The left ventricular function is normal. The left ventricular ejection fraction is within the normal range. There is normal LV segmental wall motion. RIGHT VENTRICLE The right ventricle is mildly dilated. ATRIA The left atrium is moderately dilated. The right atrium is moderately dilated. The interatrial septum is intact with no evidence for an atrial septal defect. AORTIC VALVE The aortic valve is moderately calcified. MITRAL VALVE Mitral regurgitation is mild. Prosthetic mitral valve appears normal. TRICUSPID VALVE The tricuspid valve is normal in structure. There is moderate tricuspid regurgitation. There is mild-moderate pulmonary hypertension. PULMONIC VALVE The pulmonic valve is not well visualized. GREAT VESSELS The aortic root is normal in size. PERICARDIAL EFFUSION There is no pleural effusion. <Conclusion> The left ventricle is normal size. There is normal left ventricular wall thickness. The left ventricular function is normal. The aortic valve is moderately calcified. Aortic sclerosis. Prosthetic mitral valve appears normal. Mitral regurgitation is mild. There is moderate tricuspid regurgitation. There is mild-moderate pulmonary hypertension.
--- NOTE | 2016-09-11 13:35 | PN ---
DATE: 09/11/2016 SUBJECTIVE: The patient offers no complaints whatsoever. She denies any respiratory distress. She denies a need for a mineralogy teacher and is talking about all her problems, none of which involve any re spiratory insufficiency. The chart has been reviewed. We have taken turnovers from Dr. Saumya moses re his vacation and there is nothing acute being done at this time for the patient's COPD. She will need chronic medications upon discharge. At this time she needs to be tapered from her parenteral co rticosteroids. OBJECTIVE: VITAL SIGNS: Stable. She has a temperature of 98.6, pulse of 70, respiratory rate of 18, blood pres sure 130/60, O2 sat 97% on nasal cannula. HEENT: Normocephalic, atraumatic. NECK: Supple, no JVD, no lymphadenopathy, no bruit, no thyromegaly, no mass. CARDIOVASCULAR: Regular rhythm, S1, S2. Slight S3 gallop is heard, there is the absence of systolic murmur at the lower left sternal border. LUNGS: Chest reveals decreased breath sounds throughout, but no rales, rhonchi or wheezes are apprec iated. ABDOMEN: Soft. Bowel sounds normoactive without mass, guarding, rebound or organomegaly. EXTREMITIES: Reveal no clubbing, cyanosis or edema. There is no Homans sign. SKIN: Moist. There is no rash or excoriation. LYMPHATICS: Lymphadenopathy is not present in the supraclavicular notch nor in the cervical, inguina l or axillary areas. NEUROLOGIC: Shows no focal findings. CLINICAL IMPRESSION: Status post cardiac arrhythmia with rapid atrial fibrillation, status post tiesha estive heart failure, underlying chronic obstructive pulmonary disease, bilateral pleural effusions. The majority of these problems seem to have been resolved clinically, although followup x-ray is requ ired. PLAN: At this time is to decrease the parenteral Solu-Medrol. We have done so today and can continu e to do so over the next several days. Would continue with inhaled corticosteroids and beta agonist. The patient likely has underlying air trapping and an anticholinergic may be helpful in treating th is patient. Spiriva should be added to her regimen. I am afraid to do so without the consent of car diology as her arrhythmia seems to be a major problem and adding another bronchodilator may be detrim ental to her at this time. I would like to see a complete pulmonary function study when she is more ambulatory and could have a study done at the department. We will follow with you only as necessary. Please continue to decrease the corticosteroids and use the inhaled bronchodilator and corticostero ids. Consider anticholinergic after complete pulmonary function is done prior to discharge. Efrain Marlow MD cc: [phone] TT: 09/11/2016 13:34:43 Confirmation # [id number] Dictation # [id number] jn
--- NOTE | 2016-09-11 17:28 | PN ---
DATE: 09/11/2016 SUBJECTIVE: The patient is an 86-year-old, bed seems to be comfortable, does not offer any complaint , no chest pain, no shortness of breath, did have episode of tachycardia this morning and she was jovany luated by Dr. Friedman, her Cardizem was increased. For now she is doing well. PHYSICAL EXAMINATION: VITAL SIGNS: She is afebrile, pulse 113, respirations 18, blood pressure 96/59. LUNGS: Bilateral fair airflow, no rhonchi or crackle. HEART: S1, S2 audible. ABDOMEN: Soft, nontender, no rebound, no guarding. NEUROLOGIC: She is awake and alert, communicative. LABORATORY: WBC 6.6, hemoglobin 10.7, hematocrit 34, platelet 217. Chemistry: Sodium 138, potassiu m 4.4, chloride 98, CO2 33, BUN 22, creatinine 0.9, blood sugar of 92. ASSESSMENT AND PLAN: 1. Rapid atrial fibrillation. 2. History of chronic obstructive pulmonary disease, although she never smoked. 3. Hypertension. 4. Chronic atrial fibrillation. 5. Coronary artery disease. 6. Open heart surgery. 7. Mitral valve replacement. PLAN: At this point, her amlodipine has been discontinued. She is on metoprolol. Her Cardizem-CD h as been increased by section repairer. Continue her on Lasix. We will monitor closely. We will follow up patient in a.m. Noreen Tierney MD cc: [phone] TT: 09/11/2016 17:27:05 Confirmation # [id number] Dictation # [id number] [facility]
[2016-09-12] MEDS: Levalbuterol 0.63 MG/3 ML Inhal Soln UD IH SCH ×3 (07:59→21:00)
[2016-09-12] MEDS: Budesonide 0.5 mg/2 ml Inhal Susp UD IH SCH ×2 (07:59→21:00)
--- NOTE | 2016-09-12 08:23 | CP.PCM.PN ---
Subjective - Date & Time of Evaluation Date of Evaluation: 09/12/16 Time of Evaluation: 08:00 - Subjective Subjective: Stable on 2R. No CP or SOB. She feels better but still weak. V/S noted. AF with VR 70 - low 100's now PE: Lungs: few rhonchi Cor.: irreg S1S2 Abd.: soft Ext.: no edema Neuro.: alert I/O N/A Echo: Nl V, aortic sclerosis, Mitral bioprosthesis appears nl., Mild MR, Moderate TR, Mild/moderate PH. Labs 09/11 noted. Objective - Vital Signs/Intake and Output Vital Signs (last 24 hours): Temp Pulse Resp BP Pulse Ox 98.2 F 73 19 137/78 95 09/12/16 06:00 09/12/16 06:00 09/12/16 06:00 09/12/16 06:00 09/12/16 06:00 Intake and Output: 09/12/16 09/12/16 06:59 18:59 Intake Total 0 Output Total 200 Balance -200 - Medications Medications: Current Medications Alprazolam (Xanax) 0.25 mg PO BID PRN; Protocol PRN Reason: Anxiety Stop: 09/16/16 10:01 Last Admin: 09/11/16 20:08 Dose: 0.25 mg Atorvastatin Calcium (Lipitor) 20 mg PO DAILY [facility] Last Admin: 09/11/16 10:02 Dose: 20 mg Budesonide (Pulmicort Respules) 0.5 mg IH [id number] [facility] Last Admin: 09/12/16 07:59 Dose: 0.5 mg Diltiazem HCl (Cardizem Cd) 120 mg PO BID [facility] Last Admin: 09/11/16 17:46 Dose: 120 mg Fluticasone Propionate (Flonase) 1 actuation NS DAILY [facility] Last Admin: 09/11/16 10:03 Dose: 1 spr Furosemide (Lasix) 40 mg IVP DAILY [facility] Last Admin: 09/11/16 10:00 Dose: Not Given Levalbuterol HCl (Xopenex) 0.63 mg IH TIDRESP [facility] Last Admin: 09/12/16 07:59 Dose: 0.63 mg Methylprednisolone (Solu-Medrol) 30 mg IVP DAILY [facility] Primidone (Mysoline) 50 mg PO DAILY [facility] Last Admin: 09/11/16 10:02 Dose: 50 mg Ramipril (Altace) 5 mg PO DAILY [facility] Last Admin: 09/11/16 10:00 Dose: Not Given - Labs Labs: 09/11/16 07:41 09/11/16 07:41 PT 11.1 Seconds (9.9-11.8) 09/09/16 02:30 INR 1.03 (0.93-1.08) 09/09/16 02:30 APTT 27.3 Seconds (23.7-30.8) 09/09/16 02:30 Assessment and Plan - Assessment and Plan (Free Text) Plan: Assessment: Dyspnea Edema AF with RVR CAD/CABG/MVR COPD/Acute Bronchitis Pleural effusions HBP Cataract surgery Fx left 4th and 5th metatarsals Sinusitis Plan: Continue Cardizem to CD 120 BID Continue metoprolol IV Lasix > PO OOB/PT as germain. Check stool for occult blood. CHAD2-VASc score ~ 5. High risk for embolic event. Consider A/C (Eliquis 2.5 BID or warfarin)
[2016-09-12 08:24] LABS: BLOOD UREA NITROGEN 25 mg/dL (7-21); CALCIUM 8.8 mg/dL (8.4-10.5); CARBON DIOXIDE 28 mmol/L (21-33); CHLORIDE 98 mmol/L (98-107); GFR AFRICAN-AMERICAN > 60; GLUCOSE,RANDOM 102 mg/dL (70-110); POTASSIUM 4.3 mmol/L (3.6-5.0); SODIUM 135 mmol/L (132-148)
--- NOTE | 2016-09-12 09:26 | PN ---
DATE: 09/12/2016 UPDATED REPORT The patient is recuperating well from the metatarsal fractures of her left foot and does not really s eem to have trouble her even if she walks without the walking postop shoe. So it up to the patient i f she has no pain, really there is no reason to keep using that wooden shoe. Since it is about a mon th old, it is going to take another month to really feel secure. I feel as though the patient is goi ng to continue to do well without any treatment other than protection of her left foot fracture to he r comfort. So, this could be treated conservatively with good shoe wear now. Dillon Zee DO cc: [phone] TT: 09/12/2016 09:26:43 Confirmation # [id number] Dictation # [id number] [facility]
[2016-09-12] MEDS: Fluticasone Nasal 50 mcg/Spray NS SCH (09:33)
[2016-09-12] MEDS: MethylPREDNISolone 40 mg Vial IVP SCH (09:33)
[2016-09-12] MEDS: Metoprolol Succinate 25 mg XL Tab PO SCH (09:34)
[2016-09-12] MEDS: diltiaZEM 120 mg/24 Hours CD Cap PO SCH ×2 (09:34→17:14)
--- NOTE | 2016-09-12 09:44 | PN ---
DATE: 09/12/2016 The patient is an 86-year-old, seen and examined, lying in bed, seems to be comfortable. Ambulates w ith help with mild shortness of breath. PHYSICAL EXAMINATION: VITAL SIGNS: She is afebrile, pulse 73, respirations 19, blood pressure 137/78. LUNGS: Bilateral fair airflow, no rhonchi or crackle. HEART: S1, S2 audible. Irregular rate control. ABDOMEN: Soft, nontender, no rebound, no guarding. NEUROLOGIC: She is awake and alert, communicative. LABORATORY EXAMINATION: Her chemistry: Sodium 135, potassium 4.3, chloride 98, CO2 28, BUN 25, crea tinine 0.8, blood sugar of 102. ASSESSMENT: 1. Rapid atrial fibrillation. 2. History of chronic obstructive pulmonary disease. 3. Hypertension. 4. Coronary artery disease, status post open heart surgery. 5. Status post mitral valve replacement. 6. Chronic atrial fibrillation. PLAN: Currently, patient's heart rate seems to be stable. She is on Cardizem-CD of 240 daily, ramip ril 5 mg daily, and Eliquis 2.5 twice a day. She is on p.o. Lasix. I left message with patient's so n, Balbir Galarza, to call me back. I would prefer her to go to TCU for further monitoring, but patie nt insists she wants to go home as soon as she is stable. We will make discharge plan in a.m. if yamil jean can convince her to go to TCU. Otherwise, she will be discharged home in a.m., if she remains st able. Noreen Tierney MD cc: [phone] TT: 09/12/2016 09:43:34 Confirmation # [id number] Dictation # [id number] en
--- NOTE | 2016-09-12 13:00 | PN ---
DATE: 09/12/2016 PULMONARY PROGRESS NOTE LOCATION: Room 269, bed 1. SUBJECTIVE: I have discussed the patient's problems with her at great length. Although the patient denies any respiratory distress at this time, she does state that she had a history of COPD in the [facility] [place]. Dr. Colunga has given the patient Symbicort, which she only uses as necessary. She states that sh timbo does have some difficulty walking up stairs and does have difficulty ambulating at level ground as well. At rest, she is fine. She remains on parenteral corticosteroids that need to be tapered prior to her discharge. Please note, I have reviewed an echocardiogram done earlier in this admission and note that the patie nt has an RVSP close to 50. That means that there is probably a component of pulmonary arterial hype rtension (PAH) that requires further evaluation and possibly treatment. We do not know whether the p atient's status of shortness of breath is solely related to the COPD or whether there is a component of PAH underneath. OBJECTIVE: VITAL SIGNS: Remain stable. She remains afebrile with a good pulse rate, and respiratory rate. Blo od pressure is 130/50. O2 sat is 100% on nasal cannula. HEENT: Normocephalic, atraumatic. NECK: Supple. No JVD. No lymphadenopathy, bruit, thyromegaly, or mass. CARDIOVASCULAR: Regular rhythm, S1, S2. Soft systolic ejection murmur at the lower left sternal bor harry. This apparently was not heard yesterday, but is likely present today. LUNGS: Reveal decreased breath sounds throughout. No rales, rhonchi, or wheezes. Slight prolonged expiratory phase. ABDOMEN: Soft. Bowel sounds normoactive without mass, guarding, rebound, or organomegaly. EXTREMITIES: Reveal no clubbing, cyanosis, or edema. There is no Homans' sign. SKIN: Moist. No rash or excoriation. LYMPHATICS: Negative throughout the entire evaluation of the body. NEUROLOGIC: Normal as well, with no additional abnormalities noted. HOSPITAL DIAGNOSTICS: Chest x-ray was read as normal, but echo shows possible pulmonary arterial hyp ertension with an RVSP close to 50. CLINICAL IMPRESSION: 1. Status post cardiac arrhythmia with rapid atrial fibrillation. 2. Status post congestive heart failure. 3. Underlying chronic obstructive pulmonary disease. 4. Bilateral pleural effusions. 5. Possibility of pulmonary arterial hypertension. PLAN: The patient is doing quite well under the current situation. She needs to continue inhaled br onchodilators. She needs to taper her steroids to p.o. Medrol and to discontinue this slowly as an o utpatient. Once stable and her x-ray would be repeated to show complete resolution of her congestive heart failure changes, she will need further evaluation with pulmonary function study. The echocard iogram may require that she has a right-sided cardiac catheterization to look for persistent PAH. If so, medications may be helpful in alleviating her problems. There is no further intervention right now, but to taper her corticosteroids which, can be done by her primary medical doctor, who would be very happy to see her in the office as an outpatient to make sure that her status is improved. She n eeds close evaluation of: 1. Chronic obstructive pulmonary disease. 2. Pulmonary arterial hypertension. Thank you for allowing us to participate in the care of this patient. Please feel free to call back if we can be of any further help during her hospitalization. If not, we would be happy to see her as an outpatient to continue our COPD and PAH workup. Efrain Marlow MD cc: [phone] TT: 09/12/2016 12:59:31 Confirmation # [id number] Dictation # [id number] [facility]
[2016-09-12] MEDS ORDERED: Pantoprazole 40 mg EC Tab PO ONE (20:20)
--- NOTE | 2016-09-13 05:03 | CP.PCM.PN ---
Subjective - Date & Time of Evaluation Date of Evaluation: 09/13/16 Time of Evaluation: 05:00 - Subjective Subjective: S:Patient had complained of indigestion. Had no other complaints. No chest pain, no sob. Protonix 40 mg PO was ordered. Pertinent medical record was reviewed. O: Last Vital Signs 3 Temp 97.9 F 09/13/16 00:01 Pulse 79 09/13/16 02:00 Resp 19 09/13/16 00:01 BP 132/71 09/13/16 00:01 Pulse Ox 92 L 09/13/16 00:01 Not in distress. Asleep now. LUNGS:Normal breathing pattern. A:Indigestion. P:Protonix 40 mg PO x 1. Nurse will endorse to next shift to get an order for protonix for GI prophylaxis. Objective - Vital Signs/Intake and Output Vital Signs (last 24 hours): Temp Pulse Resp BP Pulse Ox 97.9 F 79 19 132/71 92 L 09/13/16 00:01 09/13/16 02:00 09/13/16 00:01 09/13/16 00:01 09/13/16 00:01 - Medications Medications: Current Medications Alprazolam (Xanax) 0.25 mg PO BID PRN; Protocol PRN Reason: Anxiety Stop: 09/16/16 10:01 Last Admin: 09/12/16 20:27 Dose: 0.25 mg Apixaban (Eliquis) 2.5 mg PO BID [facility] Last Admin: 09/12/16 17:14 Dose: 2.5 mg Atorvastatin Calcium (Lipitor) 20 mg PO DAILY [facility] Last Admin: 09/12/16 09:34 Dose: 20 mg Budesonide (Pulmicort Respules) 0.5 mg IH [id number] [facility] Last Admin: 09/12/16 21:00 Dose: 0.5 mg Diltiazem HCl (Cardizem Cd) 120 mg PO BID [facility] Last Admin: 09/12/16 17:14 Dose: 120 mg Fluticasone Propionate (Flonase) 1 actuation NS DAILY [facility] Last Admin: 09/12/16 09:33 Dose: 1 spr Furosemide (Lasix) 40 mg PO DAILY [facility] Last Admin: 09/12/16 09:35 Dose: 40 mg Levalbuterol HCl (Xopenex) 0.63 mg IH TIDRESP [facility] Last Admin: 09/12/16 21:00 Dose: 0.63 mg Methylprednisolone (Solu-Medrol) 30 mg IVP DAILY [facility] Last Admin: 09/12/16 09:33 Dose: 30 mg Metoprolol Succinate (Toprol Xl) 25 mg PO BRK [facility] Last Admin: 09/12/16 09:34 Dose: 25 mg Primidone (Mysoline) 50 mg PO DAILY [facility] Last Admin: 09/12/16 09:35 Dose: 50 mg Ramipril (Altace) 5 mg PO DAILY [facility] Last Admin: 09/12/16 09:34 Dose: 5 mg - Labs Labs: 09/11/16 07:41 09/12/16 07:22 PT 11.1 Seconds (9.9-11.8) 09/09/16 02:30 INR 1.03 (0.93-1.08) 09/09/16 02:30 APTT 27.3 Seconds (23.7-30.8) 09/09/16 02:30
--- NOTE | 2016-09-13 05:39 | CP.PCM.PN ---
Subjective - Date & Time of Evaluation Date of Evaluation: 09/13/16 Time of Evaluation: 05:39 - Subjective Subjective: Nurse calls and tells that patient had 10 beats of VTACH. Patient is Asymptomatic.Afebrile, pulse ox 93% on RA. Medical record reviewed with nurse. Rx, :BMP, magnesium , phosphorous level, troponin level , EKG stat. Objective - Vital Signs/Intake and Output Vital Signs (last 24 hours): Temp Pulse Resp BP Pulse Ox 97.9 F 79 19 132/71 92 L 09/13/16 00:01 09/13/16 02:00 09/13/16 00:01 09/13/16 00:01 09/13/16 00:01 Intake and Output: 09/12/16 09/13/16 18:59 06:59 Intake Total 240 Output Total 700 Balance -460 - Medications Medications: Current Medications Alprazolam (Xanax) 0.25 mg PO BID PRN; Protocol PRN Reason: Anxiety Stop: 09/16/16 10:01 Last Admin: 09/12/16 20:27 Dose: 0.25 mg Apixaban (Eliquis) 2.5 mg PO BID [facility] Last Admin: 09/12/16 17:14 Dose: 2.5 mg Atorvastatin Calcium (Lipitor) 20 mg PO DAILY [facility] Last Admin: 09/12/16 09:34 Dose: 20 mg Budesonide (Pulmicort Respules) 0.5 mg IH [id number] [facility] Last Admin: 09/12/16 21:00 Dose: 0.5 mg Diltiazem HCl (Cardizem Cd) 120 mg PO BID [facility] Last Admin: 09/12/16 17:14 Dose: 120 mg Fluticasone Propionate (Flonase) 1 actuation NS DAILY [facility] Last Admin: 09/12/16 09:33 Dose: 1 spr Furosemide (Lasix) 40 mg PO DAILY [facility] Last Admin: 09/12/16 09:35 Dose: 40 mg Levalbuterol HCl (Xopenex) 0.63 mg IH TIDRESP [facility] Last Admin: 09/12/16 21:00 Dose: 0.63 mg Methylprednisolone (Solu-Medrol) 30 mg IVP DAILY [facility] Last Admin: 09/12/16 09:33 Dose: 30 mg Metoprolol Succinate (Toprol Xl) 25 mg PO BRK [facility] Last Admin: 09/12/16 09:34 Dose: 25 mg Primidone (Mysoline) 50 mg PO DAILY [facility] Last Admin: 09/12/16 09:35 Dose: 50 mg Ramipril (Altace) 5 mg PO DAILY [facility] Last Admin: 09/12/16 09:34 Dose: 5 mg - Labs Labs: 09/11/16 07:41 09/12/16 07:22 PT 11.1 Seconds (9.9-11.8) 09/09/16 02:30 INR 1.03 (0.93-1.08) 09/09/16 02:30 APTT 27.3 Seconds (23.7-30.8) 09/09/16 02:30
[2016-09-13 06:14] LABS: ADD MANUAL DIFF? NO
[2016-09-13 06:18] VITALS: O2SAT 93
[2016-09-13 06:18] LABS: BASO # 0.01 K/mm3 (0.0-2.0); BASO % 0.1 % (0.0-3.0); GRAN # 8.65 (1.4-6.5); GRAN % 81.7 % (50.0-68.0); HEMATOCRIT 33.4 % (36.0-48.0); LYMPH # 1.1 (1.2-3.4); LYMPH % 10.8 % (22.0-35.0); MEAN CELL VOLUME 89.8 fL (80.0-105.0); MEAN CORPUSCULAR HGB CONC 32.3 g/dl (31.0-37.0); MEAN PLATELET VOLUME 9.8 fl (7.0-11.0); MONO # 0.8 (0.1-0.6); MONO % 7.4 % (1.0-6.0); PLATELET COUNT 254 10^3/uL (120.0-450.0); RED CELL DISTRIBUTION WIDTH 14.5 % (11.5-14.5); WHITE BLOOD COUNT 10.6 10^3/ul (4.5-11.0)
[2016-09-13 06:27] LABS: BLOOD UREA NITROGEN 25 mg/dL (7-21); CALCIUM 8.9 mg/dL (8.4-10.5); CARBON DIOXIDE 28 mmol/L (21-33); CHLORIDE 97 mmol/L (98-107); GFR AFRICAN-AMERICAN > 60; GLUCOSE,RANDOM 115 mg/dL (70-110); MAGNESIUM 1.8 mg/dL (1.7-2.2); PHOSPHOROUS 4.4 mg/dL (2.5-4.5); POTASSIUM 4.2 mmol/L (3.6-5.0); SODIUM 134 mmol/L (132-148)
[2016-09-13 06:38] LABS: TROPONIN I 0.02 ng/mL
[2016-09-13] MEDS: Levalbuterol 0.63 MG/3 ML Inhal Soln UD IH SCH (07:20)
[2016-09-13] MEDS: Budesonide 0.5 mg/2 ml Inhal Susp UD IH SCH (07:20)
--- NOTE | 2016-09-13 08:27 | CP.PCM.PN ---
Subjective - Date & Time of Evaluation Date of Evaluation: 09/13/16 Time of Evaluation: 08:00 - Subjective Subjective: Stable on 2R. No CP or SOB. She feels better but still weak. Episode of indigestion last night. V/S noted. AF with VR 70 - low 100's. 10 bt VT noted. PE: Lungs: few rhonchi Cor.: irreg S1S2 Abd.: soft Ext.: no edema Neuro.: alert I/O N/A Echo: Nl V, aortic sclerosis, Mitral bioprosthesis appears nl., Mild MR, Moderate TR, Mild/moderate PH. Labs noted. trop.= 0.02 Objective - Vital Signs/Intake and Output Vital Signs (last 24 hours): Temp Pulse Resp BP Pulse Ox 97.5 F L 75 19 130/56 L 93 L 09/13/16 06:00 09/13/16 06:00 09/13/16 06:00 09/13/16 06:00 09/13/16 06:00 Intake and Output: 09/13/16 09/13/16 06:59 18:59 Intake Total 240 Output Total 700 Balance -460 - Medications Medications: Current Medications Alprazolam (Xanax) 0.25 mg PO BID PRN; Protocol PRN Reason: Anxiety Stop: 09/16/16 10:01 Last Admin: 09/12/16 20:27 Dose: 0.25 mg Apixaban (Eliquis) 2.5 mg PO BID [facility] Last Admin: 09/12/16 17:14 Dose: 2.5 mg Atorvastatin Calcium (Lipitor) 20 mg PO DAILY [facility] Last Admin: 09/12/16 09:34 Dose: 20 mg Budesonide (Pulmicort Respules) 0.5 mg IH [id number] [facility] Last Admin: 09/13/16 07:20 Dose: 0.5 mg Diltiazem HCl (Cardizem Cd) 120 mg PO BID [facility] Last Admin: 09/12/16 17:14 Dose: 120 mg Fluticasone Propionate (Flonase) 1 actuation NS DAILY [facility] Last Admin: 09/12/16 09:33 Dose: 1 spr Furosemide (Lasix) 40 mg PO DAILY [facility] Last Admin: 09/12/16 09:35 Dose: 40 mg Levalbuterol HCl (Xopenex) 0.63 mg IH TIDRESP [facility] Last Admin: 09/13/16 07:20 Dose: 0.63 mg Methylprednisolone (Solu-Medrol) 30 mg IVP DAILY [facility] Last Admin: 09/12/16 09:33 Dose: 30 mg Metoprolol Succinate (Toprol Xl) 25 mg PO BRK [facility] Last Admin: 09/12/16 09:34 Dose: 25 mg Primidone (Mysoline) 50 mg PO DAILY [facility] Last Admin: 09/12/16 09:35 Dose: 50 mg Ramipril (Altace) 5 mg PO DAILY [facility] Last Admin: 09/12/16 09:34 Dose: 5 mg - Labs Labs: 09/13/16 05:42 09/13/16 05:42 PT 11.1 Seconds (9.9-11.8) 09/09/16 02:30 INR 1.03 (0.93-1.08) 09/09/16 02:30 APTT 27.3 Seconds (23.7-30.8) 09/09/16 02:30 Assessment and Plan - Assessment and Plan (Free Text) Plan: Assessment: Dyspnea Edema AF with RVR CAD/CABG/MVR COPD/Acute Bronchitis/Mild to mod. PAH on echo Pleural effusions HBP Cataract surgery Fx left 4th and 5th metatarsals Sinusitis Plan: Continue Cardizem to CD 120 BID Continue metoprolol Continue PO Lasix OOB/PT as germain. Check stool for occult blood. CHAD2-VASc score ~ 5. High risk for embolic event. Eliquis 2.5 BID
[2016-09-13] MEDS: diltiaZEM 120 mg/24 Hours CD Cap PO SCH (09:48)
[2016-09-13] MEDS: Metoprolol Succinate 25 mg XL Tab PO SCH (09:50)
[2016-09-13] MEDS: MethylPREDNISolone 40 mg Vial IVP SCH (09:51)
[2016-09-13] MEDS: Fluticasone Nasal 50 mcg/Spray NS SCH (09:52)
--- NOTE | 2016-09-13 10:13 | CARD ---
APPROVED REPORT EKG Measurement Heart [id number] <Conclusion> Atrial fibrillation with premature ventricular or aberrantly conducted complexes Abnormal ECG
--- NOTE | 2016-09-13 11:23 | PQF CHF ---
This form is a permanent part of the medical record Dr. Cheatham, Please specify type and severity of CHF present in this patient when determined. CHF systolic dysfunction chronic stable Clarification of your documentation is requested to better reflect the severity of illness and intensity of treatment of your patient. Indicators present [] Diagnosis of CHF and/or history of CHF [] BNP > 200 [] Imaging Finding of Pulmonary Edema /Pleural Effusions [] Fluid/Volume Overload [] Pitting edema [] Ejection Fraction < 40% (Indicative of Systolic Heart Failure) [] Ejection Fraction > 40% (Indicative of Diastolic Heart Failure) [] Dyspnea / Orthopenea / Paroxysmal Nocturnal Dyspnea [] Other: Location in the medical record that reflects the above clinical findings: [] Treatment Provided: [] PHYSICIAN'S RESPONSE Based on your medical judgment of the clinical indicators outlined above, are you treating this patient for a known or suspected: [] Acute CHF [] Systolic [] Diastolic [] Combined [] Chronic CHF [] Systolic [] Diastolic [] Combined [] Acute on Chronic CHF []Systolic [] Diastolic [] Combined [] CHF due hypertension [] Acute systolic []Chronic systolic [] Acute/ chronic systolic [] Other, please indicate: [] [] If Unable to Determine, please check the box, sign and date. Present On Admission (POA) Indicator: [] Present at the time of admission [] Not present at the time of admission [] Clinically Undetermined In responding to this query, please exercise your independent professional judgment. The fact that a question is asked does not imply that any particular answer is desired or expected. Thank you for your clarification on this documentation. If you have any questions please call:[ ] * Thank you, [ ]Monica Rosales [facility] #[id number] investigator operator SHITAL
[2016-09-13 12:02] VITALS: BP 130/65; PULSE 56; RESP 15; TEMP 98
--- NOTE | 2016-09-13 17:06 | DS ---
The patient is an 86-year-old seen and examined, anxious to go home, doing well, eating and toleratin g, walking to the bathroom with mild shortness of breath. No nausea, vomiting, no fever, no chills. The patient came in with rapid AFib, initially was on Cardizem drip tapered to p.o. Cardizem and she seems to be stable on that. PHYSICAL EXAMINATION: VITAL SIGNS: She is afebrile, pulse 70, respirations 19, blood pressure 117/80. LUNGS: Bilateral fair airflow, no rhonchi or crackle. HEART: S1, S2 audible, irregular rate control. ABDOMEN: Soft, nontender, no rebound, no guarding. NEUROLOGIC: She is awake and alert, communicative. EXTREMITIES: Bilateral legs, no edema or ulcer. LABORATORY EXAM: WBC is 10.6, hemoglobin 10.8, hematocrit 33.4, platelets of 254. Chemistry: Sodiu m 134, potassium 4.2, chloride 97, CO2 28, BUN 25, creatinine 0.8, blood sugar 115. Blood cultures a re negative. ASSESSMENT AND PLAN: 1. Status post rapid atrial fibrillation, seems to be stable on Cardizem CD 120 twice a day. 2. Exertional dyspnea. 3. Coronary artery disease, status post mitral valve replacement and open heart surgery. 4. Chronic obstructive pulmonary disease, stable. 5. Pleural effusion. PLAN: Currently, patient is on Cardizem 120 twice a day and metoprolol 25 daily. We will continue t hat, give her a tapering dose of prednisone 10 mg daily for 5 days, so patient is clinically stable, wants to go home. We will continue her on Ramipril 5 mg daily. She is on diltiazem 120 twice a day. She is on Eliquis 2.5 twice a day and Lasix 40 mg daily and she is on atorvastatin, Primidone, Prot carli, Pulmicort and will discontinue her prednisone IV steroids and gave her 10 mg of prednisone. patient will follow with her PMD and also will follow with Dr. Friedman as outpatient. Noreen Tierney MD cc: [phone] TT: 09/13/2016 17:05:54 dn
== END 2016-09-13 16:15 | disposition home or self-care (01) | DRG 309 ==
LOC: ED 00:33 → ERH 06:17 → 2RNO 08:35
PROVIDERS: ADMIT Internal Medicine Nephrology; ATTEND Internal Medicine Nephrology
DX: I48.2 Chronic atrial fibrillation (principal); I50.22 Chronic systolic (congestive) heart failure; I47.2 Ventricular tachycardia; J44.0 Chronic obstructive pulmonary disease with (acute) lower respiratory infection; J20.9 Acute bronchitis, unspecified; I11.0 Hypertensive heart disease with heart failure; E78.5 Hyperlipidemia, unspecified; I25.10 Atherosclerotic heart disease of native coronary artery without angina pectoris; J32.9 Chronic sinusitis, unspecified; I27.2 Other secondary pulmonary hypertension; D64.9 Anemia, unspecified; K30 Functional dyspepsia; F41.9 Anxiety disorder, unspecified; S92.332D Displaced fracture of third metatarsal bone, left foot, subsequent encounter for fracture with routine healing; S92.342D Displaced fracture of fourth metatarsal bone, left foot, subsequent encounter for fracture with routine healing; X58.XXXD Exposure to other specified factors, subsequent encounter; Z95.2 Presence of prosthetic heart valve; Z79.52 Long term (current) use of systemic steroids; Z98.42 Cataract extraction status, left eye; Z98.41 Cataract extraction status, right eye; Z95.1 Presence of aortocoronary bypass graft

== ENCOUNTER 2016-09-26 16:41 | Observation (INO) | payer MEDICARE ==
[2016-09-26 16:41] VITALS: BMI 20.9
--- NOTE | 2016-09-26 17:21 | ED PDOC ---
Arrival/HPI - General Chief Complaint: GI Problem Time Seen by Provider: 09/26/16 16:43 Historian: Patient - History of Present Illness Narrative History of Present Illness (Text): 09/26/16 17:18 Patient is an 86 year old female whose past medical history includes COPD, hypertension, and CAD, who presents to the emergency department with no bowel movement since 09/14/16. Patient reports since being discharged from the hospital for recent admission, she has not had a bowel movement. She reports she took Citrate today with no improvement. Patient states she feels full. Denies abdominal pain, rectal pain, nausea, shortness of breath, or chest pain. Time/Duration: > week (Since 09/14/16) Symptom Onset: Gradual Symptom Course: Unchanged Modifying Factors (Text): Citrate with no improvement. Associated Symptoms (Text): None Past Medical History - Provider Review Nursing Documentation Reviewed: Yes - Infectious Disease Hx of Infectious Diseases: None - Tetanus Immunization Tetanus Immunization: Unknown - Reproductive Menopause: Yes - Cardiac Hx Cardiac Disorders: Yes Hx Hypertension: Yes - Pulmonary Hx Chronic Obstructive Pulmonary Disease (COPD): Yes (has home nebulizer machine ) - HEENT Hx HEENT Disorder: Yes (post nasal drip) Hx Cataracts: Yes (bilateral sx) - Integumentary Hx Dermatological Disorder: Yes Other/Comment: dry skin ble, light brown moles over back, chest, abd, redness to buttocks, slight redness to both feet/ankles, small dry red costa to ble - Musculoskeletal/Rheumatological Hx Falls: No - Gastrointestinal Hx Gastrointestinal Disorders: Yes Hx Diverticulitis: Yes Hx Gastroesophageal Reflux: Yes - Genitourinary/Gynecological Hx Genitourinary Disorders: Yes Hx Incontinence: Yes (stress when coughing) - Psychiatric Hx Depression: No Hx Emotional Abuse: No Hx Physical Abuse: No Hx Substance Use: No - Surgical History Hx Cholecystectomy: Yes Hx Open Heart Surgery: (cabd leaky valve repair) - Anesthesia Hx Anesthesia: No Hx Anesthesia Reactions: No Hx Malignant Hyperthermia: No - Suicidal Assessment Feels Threatened In Home Enviroment: No Family/Social History - Physician Review Nursing Documentation Reviewed: Yes Family/Social History: Unknown Family HX Smoking Status: Never Smoked Hx Alcohol Use: No Hx Substance Use: No Hx Substance Use Treatment: No Allergies/Home Meds Allergies/Adverse Reactions: Allergies No Known Allergies Allergy (Verified 09/26/16 16:53) Home Medications: Home Meds Medication Instructions Recorded Confirmed Atorvastatin Calcium [Lipitor] 20 mg PO DAILY 11/30/11 09/26/16 Metoprolol Succinate [Toprol XL] 25 mg PO DAILY 11/30/11 09/26/16 Alprazolam [Xanax] 0.25 mg PO BID 07/19/14 09/26/16 Primidone 50 mg PO DAILY 07/19/14 09/26/16 Aspirin [Lo-Dose Aspirin EC] 81 mg PO DAILY 09/09/16 09/26/16 Omeprazole 20 mg PO DAILY 09/09/16 09/26/16 Ramipril [Altace] 5 mg PO DAILY 09/09/16 09/26/16 Review of Systems - Review of Systems Eyes: absent: Vision Changes ENT: absent: Hearing Changes Respiratory: absent: SOB, Cough Cardiovascular: absent: Chest Pain Gastrointestinal: Constipation. absent: Abdominal Pain, Nausea, Vomiting Genitourinary Female: absent: Dysuria, Hematuria Musculoskeletal: absent: Arthralgias Skin: absent: Rash Neurological: absent: Headache, Dizziness Endocrine: absent: Diaphoresis Psychiatric: absent: Depression Physical Exam - Physical Exam Narrative Physical Exam (Text): Head: Atraumatic. Normocephalic. Eyes: PERRL. EOMI. Conjunctivae are not pale. ENT: Mucous membranes are moist and intact. Oropharynx is clear and symmetric. Neck: Supple. Full ROM. No JVD. No lymphadenopathy. Cardiovascular: Irregular rate and rhythm with systolic murmur. Pulmonary/Chest: No evidence of respiratory distress. Clear to auscultation bilaterally. No wheezing, rales or rhonchi. Abdominal: Distended but soft. Nontender. No pulsatile masses. No rebound or guarding. Rectal: JAMARCUS [employer], no hemorrhoids, there is firm brown stool in rectal vault, heme negative Back: No CVA tenderness. Extremities: No edema. No cyanosis. No clubbing. Full range of motion in all extremities. No calf tenderness. Skin: Skin is warm and dry. No petechiae. No purpura. Neurological: Alert, awake, and oriented to person, place, time, and situation. Normal speech. Normal rectal tone. Motor and sensory exam intact. Psychiatric: Good eye contact. Normal interaction, affect, and behavior. Vital Signs Reviewed: Yes Vital Signs Temp Pulse Resp BP Pulse Ox 09/26/16 21:48 97.6 F 82 20 96 09/26/16 21:00 71 18 125/70 98 09/26/16 18:47 67 16 123/65 96 09/26/16 16:47 98 F 75 20 131/60 99 Temperature: Afebrile Blood Pressure: Normal Pulse: Regular Respiratory Rate: Normal Appearance: Positive for: Well-Appearing, Non-Toxic, Comfortable Pain Distress: None Mental Status: Positive for: Alert and Oriented X 3 Medical Decision Making ED Course and Treatment: Differential Diagnosis included but are not limited to: constipation Patient noted to have NO abdominal pain on evaluation, she states she is tolerating oral intake without nausea or vomiting. On exam, she is noted to have brown stool in the rectal vault with no melena or hemorrhoids noted. She states she took oral citrate today with no relief. After rectal exam, fleet enema ordered as exam and symptoms consistent with constipation. Prior labs reviewed from recent admission. Treatment plan reviewed with patient pending reassessment after fleets enema. Prior Visits: Notes and results from previous visits were reviewed. Patient last seen in the ED on 09/09/16 for shortness of breath and admitted for COPD exacerbation, CHF, rapid atrial fibrillation. 09/26/16 22:28 Patient was re-evaluated at 20:00 she states that she is able to move bowels. Re-examined, abdomen soft and nontender. However, patient is tachypneic and states she feels short of breath. Denies chest pain. EKG obtained shows controlled atrial fibrillation. Some rales noted on bases. Dyspnea persists. No hypoxa noted. Given past hx of chf, will admit for observation to monitor symptoms of dyspnea. No hypotension noted. No tachycardia noted. - Lab Interpretations Lab Results: 09/26/16 18:00 09/26/16 18:00 Lab Results 09/26/16 18:00: Sodium 137, Potassium 3.9, Chloride 98, Carbon Dioxide 31, Anion Gap 12, BUN 13, Creatinine 0.9, Est GFR ( Amer) > 60, Est GFR (Non- Af Amer) 59, Random Glucose 95, Calcium 9.0, Total Bilirubin 0.8, AST 23, ALT 24 , Alkaline Phosphatase 108, Total Protein 6.8, Albumin 3.6, Globulin 3.3, Albumin/Globulin Ratio 1.1 04/30/17 18:00: WBC 8.1 D, RBC 3.70, Hgb 10.9 L, Hct 33.4 L, MCV 90.3, MCH 29.5 , MCHC 32.6, RDW 14.3, Plt Count 170, MPV 9.4, Gran % 72.1 H, Lymph % (Auto) 17.2 L, Mccone % (Auto) 9.6 H, Eos % (Auto) 0.7 L, Baso % (Auto) 0.4, Gran # 5.81 , Lymph # 1.4, Mccone # 0.8 H, Eos # 0.1, Baso # 0.03 - RAD Interpretation Radiology Orders: 09/26/16 18:48 ABD 2 VIEWS (FLAT/UP OR DECUB) [RAD] Stat 09/26/16 21:40 CHEST PORTABLE [RAD] Stat - EKG Interpretation EKG Interpretation (Text): 09/26/16 22:26 EKG at 21:53 atrial fibrillation rate of [address] abnormality Interpreted by ED Physician: Yes Type: 12 lead EKG - Medication Orders Current Medication Orders: Discontinued Medications Sodium Phosphate (Fleet Enema) 135 ml RC STAT STA Stop: 09/26/16 17:26 - Scribe Statement The provider has reviewed the documentation as recorded by the Yonis Lombardo Provider Scribe Attestation: All medical record entries made by the Scribe were at my direction and personally dictated by me. I have reviewed the chart and agree that the record accurately reflects my personal performance of the history, physical exam, medical decision making, and the department course for this patient. I have also personally directed, reviewed, and agree with the discharge instructions and disposition. Disposition/Present on Arrival - Present on Arrival Any Indicators Present on Arrival: No History of DVT/PE: No History of Uncontrolled Diabetes: No Urinary Catheter: No History of Decub. Ulcer: No History Surgical Site Infection Following: None - Disposition Have Diagnosis and Disposition been Completed?: Yes Diagnosis: Dyspnea, Constipation Disposition: HOSPITALIZED Disposition Time: 21:30 Patient Plan: Observation, Telemetry Patient Problems: Current Active Problems Problem Status Onset Constipation Acute Dyspnea Acute Condition: FAIR Referrals: Deny Colunga MD [Primary Care Provider] - Follow up with primary
[2016-09-26 18:07] LABS: ADD MANUAL DIFF? NO
[2016-09-26 18:12] LABS: BASO # 0.03 K/mm3 (0.0-2.0); BASO % 0.4 % (0.0-3.0); EOS # 0.1 (0.0-0.7); EOS % 0.7 % (1.5-5.0); GRAN # 5.81 (1.4-6.5); GRAN % 72.1 % (50.0-68.0); HEMATOCRIT 33.4 % (36.0-48.0); LYMPH # 1.4 (1.2-3.4); LYMPH % 17.2 % (22.0-35.0); MEAN CELL VOLUME 90.3 fL (80.0-105.0); MEAN CORPUSCULAR HEMOGLOBIN 29.5 pg (25.0-35.0); MEAN CORPUSCULAR HGB CONC 32.6 g/dl (31.0-37.0); MEAN PLATELET VOLUME 9.4 fl (7.0-11.0); MONO # 0.8 (0.1-0.6); MONO % 9.6 % (1.0-6.0); PLATELET COUNT 170 10^3/uL (120.0-450.0); RED CELL DISTRIBUTION WIDTH 14.3 % (11.5-14.5); WHITE BLOOD COUNT 8.1 10^3/ul (4.5-11.0)
[2016-09-26 18:23] LABS: ALB/GLOB RATIO 1.1 (1.1-1.8); ALKALINE PHOSPHATASE 108 U/L (38-133); ALT/SGPT 24 U/L (7-56); AST/SGOT 23 U/L (15-39); BILIRUBIN,TOTAL 0.8 mg/dL (0.2-1.3); BLOOD UREA NITROGEN 13 mg/dL (7-21); CARBON DIOXIDE 31 mmol/L (21-33); CHLORIDE 98 mmol/L (98-107); GFR AFRICAN-AMERICAN > 60; GLUCOSE,RANDOM 95 mg/dL (70-110); POTASSIUM 3.9 mmol/L (3.6-5.0); SODIUM 137 mmol/L (132-148); TOTAL PROTEIN 6.8 g/dL (5.8-8.3)
[2016-09-26 22:40] LABS: TROPONIN I 0.02 ng/mL
[2016-09-26 22:57] LABS: INR 0.96 (0.93-1.08); PARTIAL THROMBOPLASTIN TIME 25.8 Seconds (23.7-30.8)
[2016-09-27 09:14] VITALS: BP 147/78; PULSE 73
--- NOTE | 2016-09-27 09:14 | CARD ---
APPROVED REPORT EKG Measurement Heart [id number] <Conclusion> Atrial fibrillation Nonspecific ST abnormality, probably digitalis effect Abnormal ECG
--- NOTE | 2016-09-27 09:36 | HP ---
CHIEF COMPLAINT AND HISTORY OF PRESENT ILLNESS: This is an 86-year-old female who is coming into the hospital with a history of hypertension, COPD, coronary artery disease. According to the ER, the pa kristen has not had a bowel movement since 09/14/2016. She was given laxatives in the ER and had a sign ificant amount of movements last night and overnight, according to the nursing staff. She has no com plaints of any fevers or chills. She has no headaches, no dizziness, no nausea. The patient says sh e is feeling better. ALLERGIES: No known drug allergies. HOME MEDICATIONS: Lipitor, Toprol, Xanax, primidone, aspirin, omeprazole, Altace. SOCIAL HISTORY: She does not smoke or drink. FAMILY HISTORY: Noncontributory. PAST MEDICAL HISTORY: Sinusitis, hypertension, coronary artery disease. PHYSICAL EXAMINATION: VITAL SIGNS: She has a temperature of 98, pulse of 84, blood pressure is 125/88, respirations 18, O2 saturation 99%. Height is 5 feet, weight is 96 pounds, BMI is 18.7. GENERAL: The patient lying in bed, flat, and in no apparent distress. HEAD AND NECK EXAM: Atraumatic, normocephalic. Conjunctivae are pink. Throat clear and mouth with moist mucosa. Oropharynx benign. EYES: Extraocular movements are intact. PERRLA. NECK: Supple. No JVD, thyromegaly, or adenopathy. No bruits. HEART: S1 and S2 regular rate and rhythm. No murmurs, rubs, or gallops. LUNGS: Clear to auscultation bilaterally. No wheezing rales or rhonchi appreciated. No retraction s on exam. ABDOMEN: Soft, nontender, nondistended. Bowel sounds are positive in all quadrants. No rebound. No hepatosplenomegaly. EXTREMITIES: No cyanosis, clubbing, or edema. NEUROLOGIC: No facial asymmetry, tongue is midline, no uvula deviation. Power is 5/5 in upper extr emity and 5/5 in lower extremity. Sensation is normal in upper extremity and lower extremity. PSYCHIATRIC: Awake, alert, oriented x 3. No anxiety or depression symptoms. Good insight. Monica l affect. GENITOURINARY: No CVA tenderness VASCULAR: 2+ pulses in carotid and pedal pulses. SKIN: No erythema or abnormal nodules noted. SPINE: Normal curvature. LYMPHADENOPATHY: No anterior cervical or posterior cervical adenopathy. No inguinal adenopathy. LABORATORIES: White count of 8.1, hemoglobin is 10.9, platelet count is 170. Chemistry shows a sodi um 137, potassium is 3.9, creatinine 0.9. ProBNP is 1840. Troponin x 2 has been negative. EKG showed controlled atrial fibrillation. ASSESSMENT: 1. Constipation. 2. Atrial fibrillation, not on anticoagulation. 3. Dyslipidemia. 4. Coronary artery disease, status post coronary artery bypass graft. 5. Hypertension. 6. Chronic obstructive pulmonary disease. PLAN: The patient is currently comfortable. Her breathing is improved. She most likely was having difficulty in breathing because of the severe constipation she had. The patient is on Xanax as neede d. She is on metoprolol. She is going to be on Lipitor for dyslipidemia. She is on Altace for her hypertension. The patient is going to be discharged home to follow up as an outpatient with her [facility]. CONDITION: Stable. ACTIVITY: Increase as tolerated. Wilfred Cheatham MD cc: [id number] TT: 09/27/2016 09:36:16 en
--- NOTE | 2016-09-27 09:47 | RAD ---
HISTORY: sob COMPARISON: 09/09/2016 FINDINGS: LUNGS: No active pulmonary disease. PLEURA: No significant pleural effusion identified, no pneumothorax apparent. CARDIOVASCULAR: Normal. OSSEOUS STRUCTURES: Sternal wires VISUALIZED UPPER ABDOMEN: Normal. OTHER FINDINGS: None. IMPRESSION: No active disease.
[2016-09-27] MEDS ORDERED: Metoprolol Succinate 25 mg XL Tab PO SCH (10:00)
--- NOTE | 2016-09-27 10:38 | CON ---
DATE: 09/27/2016 REASON FOR CONSULTATION: Shortness of breath, constipation. HISTORY OF PRESENT ILLNESS: This is an 86-year-old woman known to me from a recent [facility] admission who was admitted through the Emergency Room when she complained of several days of constipation. She also experienced shortness of breath. She was given laxatives and subsequently had bowel movements and feels better this morning. There is also no chest pain or shortness of breath this morning. There is no orthopnea, PND, syncope, presyncope, lightheadedness, dizziness or vertigo. There is no abdominal pain, nausea, vomiting or diarrhea. There is no fever, chills, cough, sputum production or hemoptysis. PAST MEDICAL HISTORY: Notable for coronary artery disease with remote coronary bypass surgery and mitral valve replacement. She has atrial fibrillation, COPD , bronchitis, sinusitis, hypertension, bilateral cataract surgeries. She was recently in [facility] last month with shortness of breath. She underwent an evaluation. An echocardiogram demonstrated normal left ventricular function, aortic sclerosis, a mitral valve prosthesis which appeared normal, moderate tricuspid regurgitation and mild to moderate pulmonary hypertension. MEDICATIONS: At the time of admission included ramipril, diltiazem, heparin, aspirin, omeprazole, primidone, metoprolol, Xanax. During her last admission, Eliquis 2.5 b.i.d. was advised, but it does not appear that she has been taking that as yet. SOCIAL HISTORY: She lives at home. She does not smoke cigarettes. She does not drink alcohol. She is ambulatory. FAMILY HISTORY: Noncontributory. REVIEW OF SYSTEMS: A 10-point review of systems is otherwise unremarkable except as noted above. PHYSICAL EXAMINATION: GENERAL: She is a well-developed elderly woman sitting on her bed in no acute distress. VITAL SIGNS: She is in atrial fibrillation at 73 beats per minute. She is afebrile. Blood pressure 147/78, respirations 18-20, O2 sat 96-98% on room air. HEENT: Reveals no neck vein distention, thyromegaly, or carotid bruits. Mucous membranes are moist. Conjunctivae are pink. NECK: Supple. LUNG JURADO: Clear. HEART: Revealed an irregular rhythm with normal first and second heart sounds. There is a soft systolic murmur in the aortic space along the left sternal border. ABDOMEN: Soft. Bowel sounds are present. No mass, organomegaly, tenderness, rebound, or guarding. No CVA tenderness. No palpable abdominal aortic aneurysm. EXTREMITIES: Revealed no cyanosis, clubbing, or edema. NEUROLOGIC: She is awake, alert and oriented. SKIN: Warm and dry. No rash or cellulitis. LABORATORY AND IMAGING: EKG demonstrates atrial fibrillation with nonspecific ST-wave changes. A portable chest x-ray is not yet interpreted. I do not see any infiltrate or effusion or evidence of CHF. Hemoglobin 10.9, hematocrit 33.4 , white count normal, platelet count normal. PT, INR, PTT normal. Electrolytes , BUN, creatinine, blood sugar, LFTs all normal. CK 25. Two troponins negative. BNP 1840. IMPRESSION: The patient is an 86-year-old woman who came in with severe constipation which responded to laxative therapy. She had dyspnea on exertion which is somewhat chronic and worsened by the constipation and efforts to have a bowel movement. PLAN: At this time, she is ambulatory. I see no reason why she cannot be discharged with close outpatient followup. Anticoagulation will be discussed with her primary care physician, Dr. Loyola. She will add some fiber to her diet. Her other medications will be as on admission. Juanjo Friedman MD cc: [id number] TT: 09/27/2016 10:37:28 Confirmation # [id number] Dictation # [id number]
--- NOTE | 2016-09-27 10:39 | RAD ---
HISTORY: rule out obstruction COMPARISON: No prior. FINDINGS: BOWEL: Mildly dilated loops of small bowel are seen in the mid abdomen. The pattern is nonspecific BONES: Normal. OTHER FINDINGS: None. IMPRESSION: Mildly dilated loops of small bowel in the mid abdomen
[2016-09-27 11:23] VITALS: RESP 17; TEMP 98.3; O2SAT 95
== END 2016-09-27 14:17 | disposition home or self-care (01) ==
LOC: ED 16:41 → ERH 22:46 → 3RSO 09-27 01:06
PROVIDERS: ADMIT Internal Medicine Nephrology; ATTEND Internal Medicine Nephrology
DX: J44.1 Chronic obstructive pulmonary disease with (acute) exacerbation (principal); E78.5 Hyperlipidemia, unspecified; I07.1 Rheumatic tricuspid insufficiency; I27.2 Other secondary pulmonary hypertension; I10 Essential (primary) hypertension; I25.10 Atherosclerotic heart disease of native coronary artery without angina pectoris; I48.91 Unspecified atrial fibrillation; K59.00 Constipation, unspecified; Z95.1 Presence of aortocoronary bypass graft; Z95.2 Presence of prosthetic heart valve; J32.9 Chronic sinusitis, unspecified; Z68.1 Body mass index [BMI] 19.9 or less, adult; Z98.42 Cataract extraction status, left eye; Z98.41 Cataract extraction status, right eye
CPT/HCPCS: 36415; 71010; 74020; 80053; 82550; 83615; 83880; 84484; 85025; 85610; 85730; 93005; 99285; G0378

== ENCOUNTER 2016-11-11 16:05 | Inpatient (IN) | payer MEDICARE ==
[2016-11-11 16:11] VITALS: BMI 20.5
--- NOTE | 2016-11-11 16:26 | ED PDOC ---
Arrival/HPI - General Chief Complaint: Palpitations Time Seen by Provider: 11/11/16 16:13 Historian: Patient - History of Present Illness Narrative History of Present Illness (Text): 11/11/16 16:21 86 year old female whose past medical history includes coronary artery disease, COPD, hypertension, and atrial fibrillation sent to ER for rapid atrial fibrillation. Patient states she saw her PMD for ankle swelling over the past month. Patient has been complaining of shortness of breath and dyspnea on exertion since then. Patient was sent to the ED for rapid afib. Patient states this has happened to her before. Time/Duration: < month Symptom Onset: Gradual Symptom Course: Unchanged Modifying Factors (Text): None Past Medical History - Provider Review Nursing Documentation Reviewed: Yes - Infectious Disease Hx of Infectious Diseases: None - Tetanus Immunization Tetanus Immunization: Unknown - Reproductive Menopause: Yes - Cardiac Hx Cardiac Disorders: Yes Hx Cardiac Arrhythmia: Yes Hx Hypertension: Yes - Pulmonary Hx Chronic Obstructive Pulmonary Disease (COPD): Yes (has home nebulizer machine ) - HEENT Hx HEENT Disorder: Yes (post nasal drip) Hx Cataracts: Yes (bilateral sx) - Integumentary Hx Dermatological Disorder: Yes Other/Comment: dry skin ble, light brown moles over back, chest, abd, redness to buttocks, slight redness to both feet/ankles, small dry red costa to ble - Musculoskeletal/Rheumatological Hx Falls: No - Gastrointestinal Hx Gastrointestinal Disorders: Yes Hx Diverticulitis: Yes Hx Gastroesophageal Reflux: Yes - Genitourinary/Gynecological Hx Genitourinary Disorders: Yes Hx Incontinence: Yes (stress when coughing) - Psychiatric Hx Depression: No Hx Emotional Abuse: No Hx Physical Abuse: No Hx Substance Use: No - Surgical History Hx Cholecystectomy: Yes Hx Open Heart Surgery: (cabd leaky valve repair) - Anesthesia Hx Anesthesia: Yes Hx Anesthesia Reactions: No Hx Malignant Hyperthermia: No - Suicidal Assessment Feels Threatened In Home Enviroment: No Family/Social History - Physician Review Nursing Documentation Reviewed: Yes Family/Social History: Unknown Family HX Smoking Status: Never Smoked Hx Alcohol Use: No Hx Substance Use: No Hx Substance Use Treatment: No Allergies/Home Meds Allergies/Adverse Reactions: Allergies No Known Allergies Allergy (Verified 11/11/16 16:20) Home Medications: Home Meds Medication Instructions Recorded Confirmed Atorvastatin Calcium [Lipitor] 20 mg PO DAILY 11/30/11 11/11/16 Metoprolol Succinate [Toprol XL] 50 mg PO DAILY 11/30/11 11/11/16 Alprazolam [Xanax] 0.25 mg PO BID 07/19/14 11/11/16 Primidone 50 mg PO DAILY 07/19/14 11/11/16 Aspirin [Lo-Dose Aspirin EC] 81 mg PO DAILY 09/09/16 11/11/16 Omeprazole 20 mg PO DAILY 09/09/16 11/11/16 Ramipril [Altace] 5 mg PO DAILY 09/09/16 11/11/16 Albuterol 0.5% [Albuterol 0.5% 2.5 mg IH PRN PRN 11/11/16 11/11/16 Inhal Brooke (2.5 mg/0.5 ml) UD] Review of Systems - Physician Review All systems were reviewed & negative as marked: Yes Physical Exam - Physical Exam Narrative Physical Exam (Text): - Review of Systems Constitutional: Normal. absent: Fatigue, Weight Change, Fevers Eyes: Normal ENT: Normal Respiratory: SOB, ALCAZAR absent: Cough, Sputum Cardiovascular: A. fib absent: Chest pain, Palpitations, Syncope Gastrointestinal: Normal absent: Abdominal pain, Diarrhea, Nausea, Vomiting Genitourinary: Normal. absent: Dysuria, Frequency, Hematuria Musculoskeletal: Normal. absent: Arthralgias, Back Pain, Neck Pain Skin: Ankle swelling Neurological: Normal absent: Focal Weakness Endocrine: Normal Hemo/Lymphatic: Normal Psychiatric: Normal - Physical exam Patient appears age appropriate, speaking full sentences without difficulty - Systems Exam Head: Present: Atraumatic, Normocephalic Pupils: Present: PERRL Extraocular Muscles: Present: EOMI Conjunctiva: Present: Normal Mouth: Present: Moist Mucous Membranes Neck: Present: Normal Range of Motion. No: MIDLINE TENDERNESS, Paraspinal Tenderness Respiratory/Chest: Present: Crackles on R, Good Air Exchange. No: Respiratory Distress, Accessory Muscle Use, Tachypneic Cardiovascular: Present: Tachycardic, Irregular rhythm, Normal S1, S2, Peripheral Pulses Present. No: Murmurs Abdomen: Present: Normal Bowel Sounds, No: Tenderness, Peritoneal Signs, Rebound, Guarding, Distention Back: Present: Normal Inspection. No: Midline Tenderness, Paraspinal Tenderness Upper Extremity: Present: Normal Inspection. No: Cyanosis, Edema Lower Extremity: Present: Normal Inspection. No: Edema Neurological: Present: GCS=15, Speech Normal, cranial nerves II through XII fully intact with no cerebellar abnormality, neuro-sensory fully intact. No focal neurological deficits. Skin: Present: Warm, Dry, Normal Color. No: Rashes Lymphatic: Present: OX3, NI, NC Psychiatric: Present: Alert, Oriented x 3, Normal Insight, Normal Concentration Vital Signs Reviewed: Yes Vital Signs Temp Pulse Resp BP Pulse Ox 11/11/16 18:21 70 18 140/86 99 11/11/16 16:56 72 18 123/82 98 11/11/16 16:46 143 H 130/93 H 11/11/16 16:35 97.5 F L 120 H 24 129/93 H 100 Temperature: Afebrile Blood Pressure: Normal Pulse: Tachycardic Respiratory Rate: Normal Appearance: Positive for: Well-Appearing, Non-Toxic, Comfortable Pain Distress: None Mental Status: Positive for: Alert and Oriented X 3 Medical Decision Making ED Course and Treatment: Impression: 86 year old female whose past medical history includes coronary artery disease, COPD, hypertension, and atrial fibrillation sent to ER for rapid atrial fibrillation at PMD's office. On physical exam patient is tachycardic with irregular rhythm. R. sided crackles Plan: -- EKG, Chest X-ray -- Aspirin, Cardizem -- Labs -- Reassess and disposition Prior Visits: Notes and results from previous visits were reviewed. Patient was admitted on with constipation. As per Dr. Cheatham's discharge note, patient is not on anticoagulation. Progress Notes: EKG shows atrial fibrillation at 130 BPM, irregular, no ST-segment elevations. Interpreted by me. Chest X-ray read by me shows mild cardiomegaly, sternotomy sutures, right sided pleural effusion, left sided pleural effusion, no obvious infiltrates. 11/11/16 20:13 after cardizem, pt's HR 70s denies complaints at this time BNP elevated, lasix and ntg ordered pt agrees with admission dw Dr. Cheatham, accepted admission to his service - Critical Care Critical Care Minutes: 30 minutes - Lab Interpretations Lab Results: 11/11/16 16:25 11/11/16 16:25 Lab Results 11/11/16 16:45: NT-Pro-B Natriuret Pep 5920 H 11/11/16 16:25: Sodium 141, Potassium 4.2, Chloride 105, Carbon Dioxide 25, Anion Gap 15, BUN 11, Creatinine 0.9, Est GFR ( Amer) > 60, Est GFR (Non- Af Amer) 59, Random Glucose 106, Calcium 9.0, Total Bilirubin 0.5, AST 38, ALT 28, Alkaline Phosphatase 154 H, Lactate Dehydrogenase 607, Total Creatine Kinase 65, Troponin I < 0.01 D, Total Protein 7.1, Albumin 3.9, Globulin 3.2, Albumin/Globulin Ratio 1.2 11/11/16 16:25: PT 11.3, INR 1.05, APTT 27.5 11/11/16 16:25: WBC 7.3, RBC 3.81, Hgb 10.5 L, Hct 34.6 L, MCV 90.8, MCH 27.6, MCHC 30.3 L, RDW 14.7 H, Plt Count 200, MPV 10.3, Gran % 72.1 H, Lymph % (Auto) 18.7 L, [place] % (Auto) 7.7 H, Eos % (Auto) 0.8 L, Baso % (Auto) 0.7, Gran # 5.23 , Lymph # 1.4, [place] # 0.6, Eos # 0.1, Baso # 0.05 - RAD Interpretation Radiology Orders: 11/11/16 16:23 CHEST PORTABLE [RAD] Stat - EKG Interpretation Interpreted by ED Physician: Yes Type: 12 lead EKG - Medication Orders Current Medication Orders: Discontinued Medications Aspirin (Aspirin Chewable) 324 mg PO STAT STA Stop: 11/11/16 16:24 Last Admin: 11/11/16 16:45 Dose: 324 mg Diltiazem HCl (Cardizem) 15 mg IVP STAT STA Stop: 11/11/16 16:24 Last Admin: 11/11/16 16:46 Dose: 15 mg Furosemide (Lasix) 40 mg IVP STAT STA Stop: 11/11/16 19:40 Nitroglycerin (Nitrostat Sl Tab) 0.3 mg SL STAT STA Stop: 11/11/16 19:40 - Scribe Statement The provider has reviewed the documentation as recorded by the Yonis Lombardo Provider Scribe Attestation: All medical record entries made by the Scribe were at my direction and personally dictated by me. I have reviewed the chart and agree that the record accurately reflects my personal performance of the history, physical exam, medical decision making, and the department course for this patient. I have also personally directed, reviewed, and agree with the discharge instructions and disposition. Disposition/Present on Arrival - Present on Arrival Any Indicators Present on Arrival: No History of DVT/PE: No History of Uncontrolled Diabetes: No Urinary Catheter: No History of Decub. Ulcer: No History Surgical Site Infection Following: None - Disposition Have Diagnosis and Disposition been Completed?: Yes Diagnosis: Congestive heart failure (CHF), Rapid atrial fibrillation, Pleural effusion Disposition: HOSPITALIZED Disposition Time: 20:20 Patient Plan: Admission Condition: FAIR Discharge Instructions (ExitCare): Heart Failure (ED) Referrals: Deny Colunga MD [Primary Care Provider] - Follow up with primary
[2016-11-11 16:39] LABS: ADD MANUAL DIFF? NO
[2016-11-11 16:52] LABS: INR 1.05 (0.93-1.08); PARTIAL THROMBOPLASTIN TIME 27.5 Seconds (23.7-30.8)
[2016-11-11 16:58] LABS: BASO # 0.05 K/mm3 (0.0-2.0); BASO % 0.7 % (0.0-3.0); EOS # 0.1 (0.0-0.7); EOS % 0.8 % (1.5-5.0); GRAN # 5.23 (1.4-6.5); GRAN % 72.1 % (50.0-68.0); HEMATOCRIT 34.6 % (36.0-48.0); LYMPH # 1.4 (1.2-3.4); LYMPH % 18.7 % (22.0-35.0); MEAN CELL VOLUME 90.8 fL (80.0-105.0); MEAN CORPUSCULAR HEMOGLOBIN 27.6 pg (25.0-35.0); MEAN CORPUSCULAR HGB CONC 30.3 g/dl (31.0-37.0); MEAN PLATELET VOLUME 10.3 fl (7.0-11.0); MONO # 0.6 (0.1-0.6); MONO % 7.7 % (1.0-6.0); PLATELET COUNT 200 10^3/uL (120.0-450.0); RED CELL DISTRIBUTION WIDTH 14.7 % (11.5-14.5); WHITE BLOOD COUNT 7.3 10^3/ul (4.5-11.0)
[2016-11-11 17:02] LABS: ALB/GLOB RATIO 1.2 (1.1-1.8); ALKALINE PHOSPHATASE 154 U/L (38-133); ALT/SGPT 28 U/L (7-56); AST/SGOT 38 U/L (15-39); BILIRUBIN,TOTAL 0.5 mg/dL (0.2-1.3); BLOOD UREA NITROGEN 11 mg/dL (7-21); CARBON DIOXIDE 25 mmol/L (21-33); CHLORIDE 105 mmol/L (98-107); GFR AFRICAN-AMERICAN > 60; GLUCOSE,RANDOM 106 mg/dL (70-110); POTASSIUM 4.2 mmol/L (3.6-5.0); SODIUM 141 mmol/L (132-148); TOTAL PROTEIN 7.1 g/dL (5.8-8.3)
[2016-11-11 17:25] LABS: TROPONIN I < 0.01 ng/mL
--- NOTE | 2016-11-11 22:39 | CARD ---
APPROVED REPORT EKG Measurement Heart [id number] <Conclusion> Atrial fibrillation with rapid ventricular response Abnormal ECG
--- NOTE | 2016-11-11 22:55 | CP.PCM.PN ---
Subjective - Date & Time of Evaluation Date of Evaluation: 11/11/16 Time of Evaluation: 22:52 - Subjective Subjective: S:Requests a sleeping pill.States she takes xanax in am and pm when she is home prescribed to her by . Has no other complaints now. No chest pain, no sob. ROS : negative except as mentioned above. O: Last Vital Signs 3 Temp 97.5 F L 11/11/16 16:35 Pulse 70 11/11/16 18:21 Resp 18 11/11/16 18:21 BP 139/83 11/11/16 20:15 Pulse Ox 99 11/11/16 18:21 Awake, alert , not in distress. LUNGS: Normal breathing pattern. A:Insomnia. P:Xanax 0.25 mg PO x 1. Objective - Vital Signs/Intake and Output Vital Signs (last 24 hours): Temp Pulse Resp BP Pulse Ox 97.5 F L 70 18 139/83 99 11/11/16 16:35 11/11/16 18:21 11/11/16 18:21 11/11/16 20:15 11/11/16 18:21 - Labs Labs: PT 11.3 Seconds (9.9-11.8) 11/11/16 16:25 INR 1.05 (0.93-1.08) 11/11/16 16:25 APTT 27.5 Seconds (23.7-30.8) 11/11/16 16:25
[2016-11-12] MEDS: Metoprolol Succinate 50 mg XL Tab PO SCH ×2 (08:18→09:34)
[2016-11-12] MEDS: diltiaZEM 120 mg/24 Hours CD Cap PO SCH ×3 (08:19→17:50)
--- NOTE | 2016-11-12 08:45 | HP ---
CHIEF COMPLAINT AND HISTORY OF PRESENT ILLNESS: This is an 86-year-old female who is coming into the hospital with rapid atrial fibrillation. The patient was having palpitations. She has a history of coronary artery disease, COPD, atrial fibrillation. She says that she had run out of her medication s, was not able to get her primary doctor. She also started complaining of swelling of the ankles. The patient was becoming more short of breath with exertion. In the ER, the patient was found to hav e a heart rate that was elevated in the 140s. She was given Cardizem and had improvement of the hear t rate. The patient has no complaints of any fevers or chills, no nausea, no vomiting, no chest pain , no weakness in the arms or legs. REVIEW OF SYSTEMS: All other review of symptoms are within normal limits except as mentioned. ALLERGIES: No known drug allergies. HOME MEDICATIONS: Lipitor, Toprol, Xanax, primidone, aspirin, omeprazole, Altace. SOCIAL HISTORY: She does not smoke or drink. FAMILY HISTORY: Noncontributory. PAST MEDICAL HISTORY: Hypertension, coronary artery disease, sinusitis, COPD, atrial fibrillation. PHYSICAL EXAMINATION: VITAL SIGNS: Temperature is 97.6, pulse of 109, blood pressure 140/72, respirations 20, O2 saturatio n 99%. Height is 5 feet, weight is 105 pounds, BMI is 20.5. GENERAL: The patient comfortable, in no acute distress. HEENT: Anicteric sclerae. Moist mucosa. NECK: No JVD or adenopathy. CARDIAC: S1/S2. Irregular. No murmurs. No rubs. RESPIRATORY: Clear to auscultation bilaterally. No wheezes, rales, or rhonchi. Good air entry. ABDOMEN: Bowel sounds are positive, soft, nontender, and nondistended. EXTREMITIES: No edema. Has 1+ pulses. LABORATORY DATA: White count of 7.3, hemoglobin is 10.5, platelet count is 200. INR is 1.05. Sodiu m 141, potassium 4.2, creatinine 0.9. Troponin 0.01. ProBNP is 5920, albumin is 3.9. EKG shows a heart rate of 131 with atrial fibrillation. The QTC is 472. Chest x-ray done shows no infiltrates. ASSESSMENT: 1. Atrial fibrillation with rapid rate, not on anticoagulation. 2. Dyslipidemia. 3. Coronary artery disease, status post coronary artery bypass graft. 4. Hypertension. 5. Chronic obstructive pulmonary disease. PLAN: The patient is going to be admitted to the hospital. The patient is going to be continued on the Altace that the patient is on. She is also on Cardizem, this will be continued. She is on Lipit or for dyslipidemia. I will get Dr. Friedman to evaluate the patient. She is on aspirin daily for cor onary disease. She is on primidone. We will also continue that. She is on metoprolol. The patient denies any pain. We will try to get her heart rate back under control prior to discharging the anna ent. She was advised of the importance of followup and compliance with her follow up in order to con tinue her medications and not develop atrial fibrillation. She is going to be placed on a heart heal thy diet. Wilfred Cheatham MD cc: [id number] TT: 11/12/2016 08:44:53 jn
[2016-11-12 09:29] LABS: FREE T4 1.3 ng/dL (0.78-2.19)
[2016-11-12 09:43] LABS: THYROID STIMULATING HORMONE 0.96 mIU/mL (0.46-4.68)
--- NOTE | 2016-11-12 10:07 | RAD ---
HISTORY: cough COMPARISON: 09/26/2016 FINDINGS: LUNGS: No active pulmonary disease. PLEURA: Small bilateral pleural effusions right greater than left CARDIOVASCULAR: Normal. OSSEOUS STRUCTURES: Sternal wires VISUALIZED UPPER ABDOMEN: Normal. OTHER FINDINGS: None. IMPRESSION: Small bilateral pleural effusions right greater than left
--- NOTE | 2016-11-12 11:35 | CON ---
DATE: 11/12/2016 CONSULTATION INDICATIONS: Edema, rapid atrial fibrillation. HISTORY OF PRESENT ILLNESS: This is an 86-year-old woman known to me from prior admissions who went to Dr. Colunga's office because of recent swelling in her ankle. She was found to have atrial fibrillation with rapid ventricular response and sent to the Emergency Room. She was admitted to telemetry. In the Emergency Room, she got a dose of IV Cardizem and the rate slowed. This morning, she is in atrial fibrillation with a moderate ventricular response. There is no chest pain, shortness of breath, orthopnea, PND, syncope, presyncope , lightheadedness, dizziness or vertigo. There is pedal edema which has been worse in the last few days. There is no fever, chills, cough, sputum production , hemoptysis, abdominal pain, nausea, vomiting, diarrhea, constipation, or melena. PAST MEDICAL HISTORY: Notable for recent [facility] [place] admissions for COPD exacerbations. She has chronic COPD and bronchitis, sinusitis, hypertension. She has coronary artery disease and underwent a mitral valve replacement with coronary bypass surgery in the remote past. She has had cataract surgery. An echocardiogram in August demonstrated normal LV function with a prosthetic mitral valve, moderate tricuspid regurgitation, and mild to moderate pulmonary hypertension. There is no history of stroke, TIA, diabetes or gout. MEDICATIONS: At the time of admission include Lipitor, Toprol-XL, Xanax, Primacor, aspirin, ramipril, albuterol. ALLERGIES: There are no medication allergies reported. SOCIAL HISTORY: She lives at home. She is ambulatory. She lives with family. She is a nonsmoker, nondrinker. FAMILY HISTORY: Noncontributory. REVIEW OF SYSTEMS: A 10-point review of systems otherwise unremarkable except as noted above. PHYSICAL EXAMINATION: GENERAL: She is a frail elderly woman lying in bed in telemetry, in no acute distress. VITAL SIGNS: She is in atrial fibrillation with a moderate ventricular response. She is afebrile. Blood pressure 140/72, respirations 18-20, O2 sat 99% on nasal cannula. HEENT: Reveals no neck vein distention, thyromegaly, or carotid bruits. Mucous membranes are moist. Conjunctivae are pink. NECK: Supple. LUNGS: Gomez clear. HEART: Revealed an irregular rhythm, normal 1st and 2nd heart sounds. There is a soft systolic murmur along the left sternal border. ABDOMEN: Soft. Bowel sounds are present. There is no mass, organomegaly, tenderness, rebound, or guarding. No CVA tenderness. No palpable abdominal aortic aneurysm. EXTREMITIES: Revealed no cyanosis, clubbing, or edema. NEUROLOGIC: Awake, alert and oriented. PSYCHIATRIC: Normal as to mood and affect. SKIN: Warm and dry. No rash or cellulitis. LABORATORY AND IMAGING: EKG initially showed atrial fibrillation with rapid ventricular response. No acute ST wave changes. Chest x-ray is a portable study done in the Emergency Room, it is not interpreted yet. There is evidence of a right pleural effusion, no definite CHF. No definite infiltrate to my interpretation. White count normal, hemoglobin 10.5, hematocrit 34.6, platelet count normal. PT, INR, PTT normal. Electrolytes, BUN, creatinine, blood sugar , LFTs unremarkable. CK 65, troponin less than 0.01, BNP 5920. IMPRESSION: The patient is an 86-year-old woman with atrial fibrillation. On discussing her medications, it seems that she ran out of one of her medications , although I am not sure which one. She did not refill it because she did not know that she was supposed to. It is possible she was not taking Toprol-XL and this may be the reason that her heart rate became rapid. She also complains of pedal edema. I have discussed the case with Dr. Cheatham and with Dr. Colunga. I will reinstitute her medications including ramipril, aspirin, Cardizem, metoprolol, Lipitor. She gets Xanax at bedtime. She takes primidone as well. She got a dose of Lasix. Given the pedal edema, we can consider a small dose of daily Lasix, perhaps 20 mg daily when she is discharged. The issue of anticoagulation has been discussed. I will give her Eliquis while she is in the hospital and we will consider whether or not it is appropriate to continue on an outpatient basis. I will follow along with you. I will make additional recommendations based on her clinical course. I will review her old records from her prior hospitalizations as well. Juanjo Friedman MD cc: [phone] TT: 11/12/2016 11:35:29 Confirmation # [id number] Dictation # [id number] ISAACS
--- NOTE | 2016-11-13 03:32 | CP.PCM.PN ---
Subjective - Date & Time of Evaluation Date of Evaluation: 11/13/16 Time of Evaluation: 03:28 - Subjective Subjective: S: Nurse calls and informs me that patient had 2.60 second pause on monitor. Asymptomatic. I went to see patient . She is sleeping. Medical record was reviewed. O: Last Vital Signs 3 Temp 98.5 F 11/13/16 00:01 Pulse 61 11/13/16 02:00 Resp 20 11/13/16 00:01 BP 99/48 L 11/13/16 00:01 Pulse Ox 99 11/12/16 06:00 Asleep. Not in distress. LUNGS: Normal breathing pattern. A:Sinus pause. P: Instructed nurse to check with PMD before giving next dose of cardizem and metoprolol Objective - Vital Signs/Intake and Output Vital Signs (last 24 hours): Temp Pulse Resp BP Pulse Ox 98.5 F 61 20 99/48 L 99 11/13/16 00:01 11/13/16 02:00 11/13/16 00:01 11/13/16 00:01 11/12/16 06:00 Intake and Output: 11/12/16 11/13/16 18:59 06:59 Intake Total 480 Balance 480 - Medications Medications: Current Medications Alprazolam (Xanax) 0.25 mg PO BID PRN PRN Reason: Anxiety Stop: 11/19/16 08:11 Last Admin: 11/12/16 20:10 Dose: 0.25 mg Apixaban (Eliquis) 2.5 mg PO BID [facility] PRN Reason: Protocol Last Admin: 11/12/16 17:51 Dose: 2.5 mg Aspirin (Ecotrin) 81 mg PO DAILY [facility] Last Admin: 11/12/16 09:40 Dose: 81 mg Atorvastatin Calcium (Lipitor) 20 mg PO HS [facility] Last Admin: 11/12/16 21:24 Dose: 20 mg Diltiazem HCl (Cardizem Cd) 120 mg PO BID [facility] Last Admin: 11/12/16 17:50 Dose: 120 mg Furosemide (Lasix) 20 mg PO DAILY [facility] Last Admin: 11/12/16 09:41 Dose: 20 mg Metoprolol Succinate (Toprol Xl) 50 mg PO DAILY [facility] Last Admin: 11/12/16 09:34 Dose: Not Given Primidone (Mysoline) 50 mg PO DAILY [facility] Last Admin: 11/12/16 09:41 Dose: 50 mg Ramipril (Altace) 5 mg PO DAILY [facility] Last Admin: 11/12/16 09:41 Dose: 5 mg - Labs Labs: PT 11.3 Seconds (9.9-11.8) 11/11/16 16:25 INR 1.05 (0.93-1.08) 11/11/16 16:25 APTT 27.5 Seconds (23.7-30.8) 11/11/16 16:25
[2016-11-13 07:58] LABS: ALB/GLOB RATIO 1.1 (1.1-1.8); ALKALINE PHOSPHATASE 115 U/L (38-133); ALT/SGPT 26 U/L (7-56); AST/SGOT 25 U/L (15-39); BILIRUBIN,TOTAL 0.4 mg/dL (0.2-1.3); BLOOD UREA NITROGEN 18 mg/dL (7-21); CALCIUM 8.5 mg/dL (8.4-10.5); CARBON DIOXIDE 28 mmol/L (21-33); CHLORIDE 101 mmol/L (98-107); GFR AFRICAN-AMERICAN > 60; GLUCOSE,RANDOM 81 mg/dL (70-110); POTASSIUM 3.5 mmol/L (3.6-5.0); SODIUM 138 mmol/L (132-148); TOTAL PROTEIN 5.8 g/dL (5.8-8.3)
[2016-11-13] MEDS: Metoprolol Succinate 50 mg XL Tab PO SCH (09:40)
[2016-11-13] MEDS ORDERED: Potassium Chloride 40 mEq/30 ml LIQ UD PO ONE ×2 (09:46→12:12)
[2016-11-13] MEDS ORDERED: diltiaZEM 120 mg/24 Hours CD Cap PO SCH (10:00)
--- NOTE | 2016-11-13 11:33 | PN ---
DATE: 11/13/2016 SUBJECTIVE: The patient is seen sitting in a chair on telemetry. She is comfortable. She remains in atrial fibrillation with a variable heart rate response. She denies any chest pain. She does admit that after completing a bottle of metoprolol, she did not renew the prescription. CURRENT MEDICATIONS: Include Altace 5 mg daily, diltiazem 120 mg b.i.d., Ecotrin once daily, Eliquis 2.5 mg b.i.d., Lasix 20 mg daily, Lipitor 20 mg daily, Toprol-XL 50 mg daily, Mysoline 50 mg daily and Xanax 0.25 mg b.i.d. OBJECTIVE: GENERAL: She is a frail appearing, very elderly woman. VITAL SIGNS: Her blood pressure is 112/50 with a pulse of 66 and respirations are 14. She is afebrile. HEENT: No JVD. CHEST: Mild scattered rhonchi. HEART: PMI displaced laterally with a systolic murmur at the left sternal border as well as at the base. ABDOMEN: Soft, nontender, normoactive bowel sounds. EXTREMITIES: No edema. DIAGNOSTIC DATA: Potassium 3.5, BUN and creatinine are 18 and 0.9. No CBC recorded. IMPRESSION: 1. Persistent atrial fibrillation, now with adequate heart rate control. Did have a 2.6 second pause overnight with intermittent slowing of her heart rate into the 40s. She was asleep and asymptomatic at the time. It appears that recent poorly controlled rate was due to medical noncompliance. 2. History of chronic obstructive pulmonary disease. 3. Coronary artery disease, status post prior mitral valve replacement and vein graft to her right coronary artery as well as prior percutaneous coronary intervention of her diagonal branch. 4. Moderate aortic stenosis. RECOMMENDATIONS: 1. Eliquis therapy will be continued at this time as long as there is no evidence of bleeding or increased risk of falls. 2. Her diltiazem dose will be reduced to 120 mg daily and beta kyle will be continued at the present dose. If she has any further excessive slowing, diltiazem will be discontinued completely. She will be ambulated today and observed and if stable, would plan for discharge in the morning. We will continue to follow and make further recommendations as appropriate. Silverio Vickers MD cc: [id number] TT: 11/13/2016 11:32:16 Confirmation # [id number] Dictation # [id number] cn SHITAL
[2016-11-13 12:07] LABS: CHOLESTEROL 119 mg/dL (130-200)
--- NOTE | 2016-11-13 12:17 | PN ---
DATE: 11/13/2016 SUBJECTIVE: The patient is an 86-year-old seen and examined, lying in bed, seems to be comfortable. No chest pain, no shortness of breath, no nausea, vomiting, no diarrhea. She states she feels a lot better. PHYSICAL EXAMINATION: VITAL SIGNS: She is afebrile, pulse 74, respirations 18, blood pressure 112/50. LUNGS: Bilateral fair airflow, no rhonchi or crackle. HEART: S1, S2 audible. ABDOMEN: Soft, nontender, no rebound, no guarding. NEUROLOGIC: The patient is awake and alert, able to communicate, moves all extremities. EXTREMITIES: No leg edema. LABORATORY EXAMINATION: Sodium 138, potassium 3.5, chloride 101, CO2 of 28, BUN , creatinine 0. 9, blood sugar of 81. LFTs are within normal limits. BNP yesterday on 11/11 was 5920. X-ray chest shows bilateral pleural effusions. ASSESSMENT: 1. Rapid atrial fibrillation. 2. History of atrial fibrillation, but not on anticoagulation. I exactly do not know the reason. 3. Hypertension. 4. Hyperlipidemia. 5. Anxiety disorder. 6. Essential benign tremor. 7. Hypokalemia. 8. History of chronic obstructive pulmonary disease. 9. History of mitral valve replacement and open heart surgery in the remote past. 10. Moderated tricuspid regurgitation. 11. Moderate pulmonary hypertension. PLAN: At this point, patient's heart rate seems to be under control. She is on a statin. She has b een started on Eliquis, although her home medication does not reveal that she was on anticoagulant. Continue her on Cardizem-CD. I will give her p.o. potassium. Follow up her electrolytes in a.m. Ou t of bed to chair. Physical therapy evaluation and treatment has been requested. Noreen Tierney MD cc: [phone] TT: 11/13/2016 12:16:25 Confirmation # [id number] Dictation # [id number] jose
[2016-11-13] MEDS ORDERED: Alum-Mag Hydrox-Simethicone Susp (30 mL) PO STA (23:46)
--- NOTE | 2016-11-13 23:46 | CP.PCM.PN ---
Subjective - Date & Time of Evaluation Date of Evaluation: 11/13/16 Time of Evaluation: 23:45 - Subjective Subjective: Patient was seen first time for upset stomach,burning that is coming up in chest . Stated that she has had potassium liquid that did not suit her and has upset stomach. Mylanta 30 CC PO was ordered for that. 02:30 Upset stomach was getting worst also had nausea. EKG,trop,and Zofran were ordered. Troponin was <0.01. 03:25 EKG--Atrial fibrillation RVR. New Q wave in V2. ST-T changes. Now complains of bloating, burping, RLQ gas pains. No other complaints. Denies chest pain, sob, sweating , palpitations. At this time Simethicone 80 mg PO was ordered after which she felt better. This 86 year old white woman admtitted for palpitations,sob, ankle swelling / atrial fibrillation with RVR. Has PMH of atrial fibrillation, HTN, CAD, COPD, sinusitis. Objective - Vital Signs/Intake and Output Vital Signs (last 24 hours): Temp Pulse Resp BP Pulse Ox 97.1 F L 70 19 123/57 L 95 11/13/16 17:59 11/13/16 18:00 11/13/16 17:59 11/13/16 17:59 11/13/16 06:00 Intake and Output: 11/13/16 11/14/16 18:59 06:59 Intake Total 0 Balance 0 - Medications Medications: Current Medications Alprazolam (Xanax) 0.25 mg PO BID PRN PRN Reason: Anxiety Stop: 11/19/16 08:11 Last Admin: 11/13/16 21:10 Dose: 0.25 mg Apixaban (Eliquis) 2.5 mg PO BID [facility] PRN Reason: Protocol Last Admin: 11/13/16 17:59 Dose: 2.5 mg Aspirin (Ecotrin) 81 mg PO DAILY [facility] Last Admin: 11/13/16 09:39 Dose: 81 mg Atorvastatin Calcium (Lipitor) 20 mg PO HS [facility] Last Admin: 11/13/16 21:10 Dose: 20 mg Diltiazem HCl (Cardizem Cd) 120 mg PO DAILY [facility] Last Admin: 11/13/16 09:40 Dose: 120 mg Furosemide (Lasix) 20 mg PO DAILY [facility] Last Admin: 11/13/16 09:39 Dose: 20 mg Metoprolol Succinate (Toprol Xl) 50 mg PO DAILY [facility] Last Admin: 11/13/16 09:40 Dose: 50 mg Primidone (Mysoline) 50 mg PO DAILY [facility] Last Admin: 11/13/16 09:39 Dose: 50 mg Ramipril (Altace) 5 mg PO DAILY [facility] Last Admin: 11/13/16 09:40 Dose: 5 mg - Labs Labs: 11/13/16 07:00 PT 11.3 Seconds (9.9-11.8) 11/11/16 16:25 INR 1.05 (0.93-1.08) 11/11/16 16:25 APTT 27.5 Seconds (23.7-30.8) 11/11/16 16:25 - Constitutional Appears: Well, No Acute Distress - ENT Exam ENT Exam: Mucous Membranes Moist - Neck Exam Neck Exam: Normal Inspection - Respiratory Exam Respiratory Exam: NORMAL BREATHING PATTERN - GI/Abdominal Exam GI & Abdominal Exam: Soft (Yes.), Normal Bowel Sounds. absent: Distended, Firm , Guarding, Rigid, Tenderness, Hernia, Mass, Organomegaly, Pulsatile Mass, Rebound - Rectal Exam Rectal Exam: Deferred - Extremities Exam Extremities Exam: Normal Inspection - Back Exam Back Exam: NORMAL INSPECTION - Neurological Exam Neurological Exam: Alert, Oriented x3 - Psychiatric Exam Psychiatric exam: Normal Affect, Normal Mood - Skin Skin Exam: Normal Color Assessment and Plan - Assessment and Plan (Free Text) Assessment: Nausea. Flatulence. Atrial fibrillation with RVR. CAD. COPD. Plan: Zofran 4 mg IV x 1. EKG. Troponin. Simethicone. Continue present management.
[2016-11-14 03:06] LABS: ALB/GLOB RATIO 1.2 (1.1-1.8); ALKALINE PHOSPHATASE 136 U/L (38-133); ALT/SGPT 25 U/L (7-56); AST/SGOT 43 U/L (15-39); BILIRUBIN,TOTAL 0.5 mg/dL (0.2-1.3); BLOOD UREA NITROGEN 15 mg/dL (7-21); CALCIUM 9.6 mg/dL (8.4-10.5); CARBON DIOXIDE 33 mmol/L (21-33); CHLORIDE 98 mmol/L (98-107); GFR AFRICAN-AMERICAN > 60; GLUCOSE,RANDOM 108 mg/dL (70-110); MAGNESIUM 1.8 mg/dL (1.7-2.2); SODIUM 140 mmol/L (132-148); TOTAL PROTEIN 7.4 g/dL (5.8-8.3)
[2016-11-14] MEDS ORDERED: Simethicone 80 mg Chewtab PO STA (03:25)
[2016-11-14 03:29] LABS: FREE T4 1.16 ng/dL (0.78-2.19)
[2016-11-14 03:43] LABS: THYROID STIMULATING HORMONE 1.95 mIU/mL (0.46-4.68)
[2016-11-14] MEDS ORDERED: diltiaZEM 180 mg/24 Hours CD Cap PO SCH (07:00)
[2016-11-14] MEDS: Metoprolol Succinate 50 mg XL Tab PO SCH (09:21)
--- NOTE | 2016-11-14 11:59 | PN ---
DATE: 11/14/2016 SUBJECTIVE: The patient is 86 years old. Seen and examined. The patient stated yesterday after she received oral KCl, she started to have stomach upset; she was bloated. She was complaining of some discomfort IV. So, right now, she is feeling better. She had a couple of bowel movements, and she did eat and no more nausea or vomiting have occurred. On monitor, she did have burst of atrial fibrillation. OBJECTIVE GENERAL: On examination, she is awake and alert, communicative. VITAL SIGNS: She is afebrile. Pulse 132, respirations 18, blood pressure 121/81. LUNGS: Bilateral fair airflow and no rhonchi or crackle. HEART: S1 and S2 audible. ABDOMEN: Soft, nontender. No rebound and no guarding. NEUROLOGICAL: She is awake and alert, communicative. Able to move all extremities. LABORATORY EXAMINATION: Sodium 140, potassium 4.0, chloride 98, CO2 of 33, BUN 15, creatinine 0.9. Blood sugar of 108. ASSESSMENT 1. Atrial fibrillation, still uncontrolled. 2. Hypertension. 3. Hyperlipidemia. 4. Anxiety disorder. 5. Electrolyte imbalance, improved. 6. History of chronic obstructive pulmonary disease (COPD). 7. Status post mitral valve replacement, in the remote past. 8. Moderate tricuspid regurgitation. 9. Pulmonary hypertension. PLAN: Currently, the patient is on ramipril. She is on diltiazem 180 mg daily; since her blood pres sure is holding, we can increase this to 240. We can give her 1 dose of 60 mg stat, if 180 was given already. She has been started on Eliquis 2.5 twice a day. She is on statins. She is on metoprolol 50 mg daily. Out of bed to chair and a followup electrolyte in a.m. Noreen Tierney MD cc: [phone] TT: 11/14/2016 11:58:30 Confirmation # [id number] Dictation # [id number] fn
--- NOTE | 2016-11-14 14:11 | PN ---
DATE: 11/14/2016 SUBJECTIVE: The patient is seen lying in bed on telemetry. She states she feels somewhat weak and tired. Her heart rate remains between 100 and 110. She denies any chest pain. CURRENT MEDICATIONS: Include Altace 5 mg daily, diltiazem CD 120 mg daily, Ecotrin once daily, Eliquis 2.5 mg b.i.d., Lasix 20 mg daily, Lipitor 20 mg daily, Toprol-XL 50 mg daily, Xanax p.r.n. OBJECTIVE: GENERAL: She is a very elderly woman who appears comfortable at rest. VITAL SIGNS: Her blood pressure is 118/70 with a pulse of 110. Respirations are 16. She is afebrile. HEENT: No JVD. CHEST: A few scattered rhonchi. HEART: PMI displaced laterally with a systolic murmur at the base as well as left sternal border. ABDOMEN: Soft, nontender, normoactive bowel sounds. EXTREMITIES: No edema. DIAGNOSTIC DATA: Potassium 4.0, BUN and creatinine are 15 and 0.9. IMPRESSION: 1. Persistent atrial fibrillation with variable heart rate control. 2. Moderate aortic stenosis. 3. History of chronic obstructive pulmonary disease. 4. Coronary artery disease, status post mitral valve replacement and a vein graft to right coronary artery as well as percutaneous coronary intervention of diagonal branch. RECOMMENDATION: Her diltiazem dose will be increased to 180 mg daily. If needed, this can be increased further or beta kyle dose can be increased as well for heart rate control. Caution will be taken as she has had intermittent bradycardia in the past. If her rate becomes difficult to control, consideration may need to be given to a permanent pacemaker implant to prevent excessive bradycardia and allow for adequate heart rate control therapy. Given her use of Eliquis, aspirin will be withheld for now. We will continue to follow and make further recommendations as appropriate. Silverio Vickers MD cc: [phone] TT: 11/14/2016 14:10:06 Confirmation # [id number] Dictation # [id number] ln [facility]
--- NOTE | 2016-11-14 22:01 | CARD ---
APPROVED REPORT EKG Measurement Heart [id number] <Conclusion> Atrial fibrillation with rapid ventricular response with premature ventricular or aberrantly conducted complexes Septal infarct, age undetermined Abnormal ECG
[2016-11-15] MEDS: diltiaZEM 240 mg/24 Hours CD Cap PO SCH (07:12)
[2016-11-15 07:18] LABS: ALB/GLOB RATIO 1.2 (1.1-1.8); ALKALINE PHOSPHATASE 112 U/L (38-133); ALT/SGPT 25 U/L (7-56); AST/SGOT 23 U/L (15-39); BILIRUBIN,TOTAL 0.5 mg/dL (0.2-1.3); BLOOD UREA NITROGEN 18 mg/dL (7-21); CALCIUM 8.7 mg/dL (8.4-10.5); CARBON DIOXIDE 28 mmol/L (21-33); CHLORIDE 99 mmol/L (98-107); GFR AFRICAN-AMERICAN > 60; GLUCOSE,RANDOM 96 mg/dL (70-110); MAGNESIUM 1.7 mg/dL (1.7-2.2); POTASSIUM 4.7 mmol/L (3.6-5.0); SODIUM 134 mmol/L (132-148); TOTAL PROTEIN 6.1 g/dL (5.8-8.3)
--- NOTE | 2016-11-15 08:23 | PN ---
DATE: 11/15/2016 This is an 86-year-old female who came in to the hospital with atrial fibrillation and rapid rate. T he patient was seen by cardiology and had her medications adjusted. She had variable rate control. Her diltiazem was increased to 180 mg. Will defer her treatment to cardiology. She is feeling well. She has no complaints of any headaches or dizziness, no nausea, no vomiting. PHYSICAL EXAMINATION: VITAL SIGNS: Temperature is 98.6, pulse of 94, blood pressure 129/72, respirations 19, O2 saturation 98%. GENERAL: The patient comfortable, in no acute distress. HEENT: Anicteric sclerae. Moist mucosa. NECK: No JVD or adenopathy. CARDIAC: S1/S2. No murmurs. No rubs. Regular. RESPIRATORY: Clear to auscultation bilaterally. No wheezes, rales, or rhonchi. Good air entry. ABDOMEN: Bowel sounds are positive, soft, nontender, and nondistended. EXTREMITIES: No edema. Has 1+ pulses. ASSESSMENT: 1. Atrial fibrillation with rapid rate. 2. Dyslipidemia. 3. Coronary artery disease, status post coronary artery bypass graft. 4. Hypertension. 5. Chronic obstructive pulmonary disease. PLAN: The patient is currently comfortable. She is on ramipril. She is receiving Cardizem for her atrial fibrillation. She is on apixaban for anticoagulation. Now she is on Lipitor for dyslipidemia . She is going to continue with metoprolol. She is on Xanax as needed. Wilfred Cheatham MD cc: [phone] TT: 11/15/2016 08:19:16 Confirmation # [id number] Dictation # [id number] mn
--- NOTE | 2016-11-15 09:21 | CP.PCM.PN ---
Subjective - Date & Time of Evaluation Date of Evaluation: 11/15/16 Time of Evaluation: 07:00 - Subjective Subjective: Stable on 2R. No chest pain, sob. V/S noted. AF with mod. VR 90 - low 100's PE: Lungs: clear Cor.: S1S2 Abd.: soft Ext: no edema Neuro.: alert Labs noted. Objective - Vital Signs/Intake and Output Vital Signs (last 24 hours): Temp Pulse Resp BP Pulse Ox 98.6 F 127 H 19 129/72 98 11/15/16 06:00 11/15/16 07:12 11/15/16 06:00 11/15/16 07:12 11/15/16 06:00 Intake and Output: 11/15/16 11/15/16 06:59 18:59 Intake Total 120 Balance 120 - Medications Medications: Current Medications Alprazolam (Xanax) 0.25 mg PO BID PRN PRN Reason: Anxiety Stop: 11/19/16 08:11 Last Admin: 11/14/16 22:26 Dose: 0.25 mg Apixaban (Eliquis) 2.5 mg PO BID [facility] PRN Reason: Protocol Last Admin: 11/14/16 17:54 Dose: 2.5 mg Atorvastatin Calcium (Lipitor) 20 mg PO HS [facility] Last Admin: 11/14/16 22:27 Dose: 20 mg Diltiazem HCl (Cardizem Cd) 240 mg PO DAILY [facility] Last Admin: 11/15/16 07:12 Dose: 240 mg Furosemide (Lasix) 20 mg PO DAILY [facility] Last Admin: 11/14/16 09:21 Dose: 20 mg Metoprolol Succinate (Toprol Xl) 50 mg PO DAILY [facility] Last Admin: 11/14/16 09:21 Dose: 50 mg Primidone (Mysoline) 50 mg PO DAILY [facility] Last Admin: 11/14/16 09:22 Dose: 50 mg Ramipril (Altace) 5 mg PO DAILY [facility] Last Admin: 11/14/16 09:21 Dose: 5 mg - Labs Labs: 11/15/16 05:30 PT 11.3 Seconds (9.9-11.8) 11/11/16 16:25 INR 1.05 (0.93-1.08) 11/11/16 16:25 APTT 27.5 Seconds (23.7-30.8) 11/11/16 16:25 Assessment and Plan - Assessment and Plan (Free Text) Assessment: Edema AF with RVR CAD/CABG/MVR/PCI COPD/Bronchitis/Sinusitis HBP Cataract surgery Echo: mod. MR and mild/mod PH Plan: Increase Diltiazem to 240/day. Continue Lasix 20/day and metoprolol ER 50/day Continue Eliquis 2.5 BID OOB/PT
[2016-11-15] MEDS: Metoprolol Succinate 50 mg XL Tab PO SCH (09:25)
[2016-11-16] MEDS ORDERED: Metoprolol Succinate 50 mg XL Tab PO SCH (07:34)
[2016-11-16] MEDS: diltiaZEM 240 mg/24 Hours CD Cap PO SCH ×2 (08:33→11:44)
--- NOTE | 2016-11-16 08:33 | CP.PCM.PN ---
Subjective - Date & Time of Evaluation Date of Evaluation: 11/16/16 Time of Evaluation: 07:00 - Subjective Subjective: Stable on 2R. No chest pain, sob. V/S noted. AF with moderate rates at rest and increased rates 120 - 140's with walking/activities PE: Lungs: clear Cor.: S1S2 Abd.: soft Ext: no edema Neuro.: alert Labs 11/15 noted. Objective - Vital Signs/Intake and Output Vital Signs (last 24 hours): Temp Pulse Resp BP Pulse Ox 98.9 F 110 H 19 108/56 L 95 11/16/16 06:00 11/16/16 06:00 11/16/16 06:00 11/16/16 06:00 11/16/16 06:00 Intake and Output: 11/16/16 11/16/16 06:59 18:59 Intake Total 0 Output Total 0 Balance 0 - Medications Medications: Current Medications Alprazolam (Xanax) 0.25 mg PO BID PRN PRN Reason: Anxiety Stop: 11/19/16 08:11 Last Admin: 11/15/16 21:19 Dose: 0.25 mg Apixaban (Eliquis) 2.5 mg PO BID [facility] PRN Reason: Protocol Last Admin: 11/15/16 17:03 Dose: 2.5 mg Atorvastatin Calcium (Lipitor) 20 mg PO [facility] Last Admin: 11/15/16 21:16 Dose: 20 mg Diltiazem HCl (Cardizem Cd) 240 mg PO DAILY [facility] Last Admin: 11/15/16 07:12 Dose: 240 mg Furosemide (Lasix) 20 mg PO DAILY [facility] Last Admin: 11/15/16 09:24 Dose: 20 mg Metoprolol Succinate (Toprol Xl) 25 mg PO DAILY [facility] Metoprolol Succinate (Toprol Xl) 50 mg PO DAILY [facility] Primidone (Mysoline) 50 mg PO DAILY [facility] Last Admin: 11/15/16 09:25 Dose: 50 mg Ramipril (Altace) 5 mg PO DAILY [facility] Last Admin: 11/15/16 09:24 Dose: 5 mg - Labs Labs: 11/15/16 05:30 PT 11.3 Seconds (9.9-11.8) 11/11/16 16:25 INR 1.05 (0.93-1.08) 11/11/16 16:25 APTT 27.5 Seconds (23.7-30.8) 11/11/16 16:25 Assessment and Plan - Assessment and Plan (Free Text) Assessment: Edema AF with RVR CAD/CABG/MVR/PCI COPD/Bronchitis/Sinusitis HBP Cataract surgery Echo: mod. MR and mild/mod PH Plan: Continue Diltiazem to 240/day. Continue Lasix 20/day. Increase metoprolol ER 75/day Continue Eliquis 2.5 BID OOB/PT If VR can not be controlled, consider AVN ablation and PPM.
[2016-11-16] MEDS ORDERED: Metoprolol Succinate 25 mg XL Tab PO SCH (10:00)
[2016-11-16] MEDS: Metoprolol Succinate 50 mg XL Tab PO SCH (10:07)
[2016-11-16] MEDS ORDERED: POLYETHYLENE GLYCOL 3350 17 GM/Dose PACKET PO SCH (12:45)
[2016-11-16] MEDS ORDERED: Magnesium Hydroxide Susp 30 ml UD PO ONE (13:48)
[2016-11-16] MEDS ORDERED: Simethicone 40 mg/0.6 ml Liquid (30 ml) PO SCH (14:00)
[2016-11-16] MEDS ORDERED: Sodium Chloride 0.9% 1,000 ML IV SCH ×2 (14:45→18:39)
--- NOTE | 2016-11-16 15:01 | CP.PCM.PN ---
<Silverio Fish - Last Filed: 11/16/16 14:40> Subjective - Date & Time of Evaluation Date of Evaluation: 11/16/16 Time of Evaluation: 15:16 - Subjective Subjective: This is an 86 y/o female with hx atrial fibrillation admitted with atrial fibrillation with rapid rate. She is currently on Eliquis. 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 She was promptly placed in bed and started vomiting blood and code blue was called Patient became responsive on her own and started breathing and talking. Code blue was cancelled. Blood clots were noted on her pillow and on her clothing. Patient denied complaints of chest pain but said she had constipation and felt bloated in her stomach. Vital signs 109/51 HR 61 Oxygen saturation 98% on 100% nonrebreather, RR 16. She was placed on O2 on 100% nonrebreather mask. O2 sat PMH includes - HTN, CAD, sinusitis, COPD, atrial fibrillation Objective - Vital Signs/Intake and Output Vital Signs (last 24 hours): Temp Pulse Resp BP Pulse Ox 98.0 F 135 H 20 115/75 95 11/16/16 12:00 11/16/16 12:00 11/16/16 12:00 11/16/16 12:00 11/16/16 06:00 Intake and Output: 11/16/16 11/16/16 06:59 18:59 Intake Total 0 Output Total 0 Balance 0 - Medications Medications: Current Medications Alprazolam (Xanax) 0.25 mg PO BID PRN PRN Reason: Anxiety Stop: 11/19/16 08:11 Last Admin: 11/16/16 08:32 Dose: 0.25 mg Atorvastatin Calcium (Lipitor) 20 mg PO HS [facility] Last Admin: 11/15/16 21:16 Dose: 20 mg Diltiazem HCl (Cardizem Cd) 240 mg PO DAILY [facility] Last Admin: 11/16/16 11:44 Dose: Not Given Furosemide (Lasix) 20 mg PO DAILY [facility] Last Admin: 11/16/16 10:07 Dose: 20 mg Metoprolol Succinate (Toprol Xl) 50 mg PO DAILY [facility] Last Admin: 11/16/16 10:07 Dose: 50 mg Polyethylene Glycol (Miralax) 17 gm PO DAILY [facility] Last Admin: 11/16/16 13:43 Dose: 17 gm Primidone (Mysoline) 50 mg PO DAILY [facility] Last Admin: 11/16/16 10:07 Dose: 50 mg Ramipril (Altace) 5 mg PO DAILY [facility] Last Admin: 11/16/16 10:06 Dose: 5 mg Simethicone (Mylicon Liq) 40 mg PO QID [facility] - Labs Labs: 11/15/16 05:30 PT 11.3 Seconds (9.9-11.8) 11/11/16 16:25 INR 1.05 (0.93-1.08) 11/11/16 16:25 APTT 27.5 Seconds (23.7-30.8) 11/11/16 16:25 - Constitutional Appears: Non-toxic - Head Exam Head Exam: ATRAUMATIC, NORMOCEPHALIC - Eye Exam Eye Exam: PERRL - ENT Exam Additional comments: blood and clots noted around neck and mouth. - Respiratory Exam Respiratory Exam: Clear to Ausculation Bilateral. absent: Rales, Rhonchi, Wheezes - Cardiovascular Exam Cardiovascular Exam: Irregular Rhythm, REGULAR RHYTHM, +S1, +S2 - GI/Abdominal Exam GI & Abdominal Exam: Soft, Normal Bowel Sounds. absent: Tenderness - Extremities Exam Extremities Exam: absent: Calf Tenderness, Pedal Edema - Neurological Exam Neurological Exam: Alert, Awake, Oriented x3 - Skin Skin Exam: Dry, Warm Assessment and Plan - Assessment and Plan (Free Text) Assessment: 1. vaso-vagal reaction/snycope 2. upper GI bleed 3. Afib 4. anemia Plan: EKG done stat.( shows afib with moderate ventricular response. ) Portable chest xray done stat Blood work ordered. Patient suctioned. Dr. Cheatham notified Consult requested with Dr. Reyes at Dr. Cheatham's request Patient seen by Dr. Reyes and accepted to ICU With O2 and monitor in place patient was transferred to the ICU <Adia Mayer - Last Filed: 11/16/16 17:19> Objective - Vital Signs/Intake and Output Vital Signs (last 24 hours): Temp Pulse Resp BP Pulse Ox 97.4 F L 97 H 21 108/78 100 11/16/16 16:00 11/16/16 16:50 11/16/16 16:50 11/16/16 16:00 11/16/16 16:50 Intake and Output: 11/16/16 11/16/16 06:59 18:59 Intake Total 0 Output Total 0 Balance 0 - Medications Medications: Current Medications Alprazolam (Xanax) 0.25 mg PO BID PRN PRN Reason: Anxiety Stop: 11/19/16 08:11 Last Admin: 11/16/16 08:32 Dose: 0.25 mg Atorvastatin Calcium (Lipitor) 20 mg PO HS [facility] Last Admin: 11/15/16 21:16 Dose: 20 mg Diltiazem HCl (Cardizem Cd) 240 mg PO DAILY [facility] Last Admin: 11/16/16 11:44 Dose: Not Given Furosemide (Lasix) 20 mg PO DAILY [facility] Last Admin: 11/16/16 10:07 Dose: 20 mg Pantoprazole Sodium (Protonix 40mg Ivpb) 40 mg in 100 mls @ 20 mls/hr IVPB .Q5H [facility] Last Admin: 11/16/16 15:39 Dose: 20 mls/hr Sodium Chloride (Sodium Chloride 0.9%) 1,000 mls @ 100 mls/hr IV .Q10H [facility] Last Admin: 11/16/16 15:38 Dose: 100 mls/hr Metoprolol Succinate (Toprol Xl) 50 mg PO DAILY [facility] Last Admin: 11/16/16 10:07 Dose: 50 mg Metoprolol Tartrate (Lopressor) 5 mg IVP Q6 [facility] Polyethylene Glycol (Miralax) 17 gm PO DAILY [facility] Last Admin: 11/16/16 13:43 Dose: 17 gm Ramipril (Altace) 5 mg PO DAILY [facility] Last Admin: 11/16/16 10:06 Dose: 5 mg Simethicone (Mylicon Liq) 40 mg PO QID [facility] Last Admin: 11/16/16 15:48 Dose: Not Given - Labs Labs: 11/16/16 14:30 11/16/16 14:30 PT 12.7 Seconds (9.9-11.8) H 11/16/16 14:30 INR 1.18 (0.93-1.08) H 11/16/16 14:30 APTT 25.0 Seconds (23.7-30.8) 11/16/16 14:30 Attending/Attestation - Attestation I have personally seen and examined this patient.: Yes I have fully participated in the care of the patient.: Yes I have reviewed all pertinent clinical information, including history, physical exam and plan: Yes Notes (Text): 11/16/16 17:18 Agree with above documentation
[2016-11-16 15:08] LABS: HEMATOCRIT 29.2 % (36.0-48.0); MEAN CELL VOLUME 88.8 fL (80.0-105.0); MEAN CORPUSCULAR HEMOGLOBIN 27.7 pg (25.0-35.0); MEAN CORPUSCULAR HGB CONC 31.2 g/dl (31.0-37.0); MEAN PLATELET VOLUME 10.1 fl (7.0-11.0); RED CELL DISTRIBUTION WIDTH 14.7 % (11.5-14.5); WHITE BLOOD COUNT 12.1 10^3/ul (4.5-11.0)
[2016-11-16 15:18] LABS: ALB/GLOB RATIO 1.2 (1.1-1.8); ALKALINE PHOSPHATASE 86 U/L (38-133); ALT/SGPT 20 U/L (7-56); AST/SGOT 21 U/L (15-39); BILIRUBIN,TOTAL 0.5 mg/dL (0.2-1.3); BLOOD UREA NITROGEN 38 mg/dL (7-21); CALCIUM 8.1 mg/dL (8.4-10.5); CARBON DIOXIDE 27 mmol/L (21-33); CHLORIDE 96 mmol/L (98-107); GFR AFRICAN-AMERICAN > 60; GLUCOSE,RANDOM 152 mg/dL (70-110); POTASSIUM 4.3 mmol/L (3.6-5.0); SODIUM 131 mmol/L (132-148); TOTAL PROTEIN 5.8 g/dL (5.8-8.3)
[2016-11-16] MEDS: Pantoprazole 40mg/100ml IVPB 40 MG/100 ML BAG IVPB SCH ×2 (15:39→19:40)
[2016-11-16 15:40] LABS: TROPONIN I < 0.01 ng/mL
[2016-11-16 15:50] LABS: INR 1.18 (0.93-1.08)
[2016-11-16 15:56] LABS: VENOUS BLOOD GAS BASE EXCESS 0.6 mmol/L (0.0-2.0); VENOUS BLOOD PH 7.33 (7.32-7.43)
--- NOTE | 2016-11-16 16:51 | RAD ---
HISTORY: unresponsive COMPARISON: 11/11/2016 FINDINGS: LUNGS: No active pulmonary disease. PLEURA: Small right pleural effusion persists. No left pleural effusion. CARDIOVASCULAR: Normal heart size. Sternotomy wires noted. Status post mitral valvular prosthesis. OSSEOUS STRUCTURES: No significant abnormalities. VISUALIZED UPPER ABDOMEN: Normal. OTHER FINDINGS: None. IMPRESSION: Small right pleural effusion.
--- NOTE | 2016-11-16 16:52 | CARD ---
APPROVED REPORT EKG Measurement Heart [id number] <Conclusion> Atrial fibrillation Abnormal ECG
[2016-11-16] MEDS ORDERED: Metoprolol 1 mg/ml Inj IVP SCH (18:00)
[2016-11-16] MEDS: Metoprolol 1 mg/ml Inj IVP SCH (18:01)
--- NOTE | 2016-11-16 20:11 | DS ---
This is an 86-year-old female who had come into the hospital and was found to have a rapid rate secon yamileth to atrial fibrillation. She has improvement of her rate. The patient had her Cardizem increase d. The patient also was placed on Eliquis. She has a rate that is better controlled, but at times i t does go up. The patient's metoprolol is also going to be increased. If her rate stays controlled she can be discharged. Otherwise, she may need evaluation for a pacemaker. The patient has no compl aints of any headaches or dizziness, no nausea, no vomiting. She is able to ambulate. PHYSICAL EXAMINATION: VITAL SIGNS: Temperature is 98.9, pulse of 110, blood pressure 108/56, respiration is 19. GENERAL: The patient is comfortable, in no acute distress. HEENT: Anicteric sclerae. Moist mucosa. NECK: No JVD or adenopathy. CARDIAC: S1/S2. No murmurs. No rubs. Regular. RESPIRATORY: Clear to auscultation bilaterally. No wheezes, rales, or rhonchi. Good air entry. ABDOMEN: Bowel sounds are positive, soft, nontender, and nondistended. EXTREMITIES: No edema. Has 1+ pulses. ASSESSMENT: 1. Atrial fibrillation with rapid rate. 2. Dyslipidemia. 3. Coronary artery disease, status post coronary artery bypass graft. 4. Hypertension. 5. Chronic obstructive pulmonary disease. PLAN: The patient is going to continue with the Altace. She is on Cardizem 240. She is going to co ntinue with Eliquis. She is on Lipitor for dyslipidemia. She is on metoprolol. She is on a heart h ealthy diet. CONDITION: Stable. ACTIVITIES: Increase as tolerated. Wilfred Cheatham MD cc: [id number] TT: 11/16/2016 20:10:50 [place]
--- NOTE | 2016-11-16 20:21 | CON ---
DATE: 11/16/2016 HISTORY OF PRESENT ILLNESS: The patient is an 86-year-old lady with history of atrial fibrillation on Eliquis, chronic obstructive pulmonary disease who was doing pretty okay up until earlier today when she had massive upper gastrointestinal bleed with coffee ground vomiting. She nevertheless maintained her blood pressure stable and her checked was not significantly more elevated above her baseline. She also was alert and oriented x 2 during the episode. No diarrhea, no constipation, no chest pain, no abdominal pain, no fever, chills or sweats. PAST MEDICAL HISTORY: Hypertension, coronary artery disease, sinusitis, COPD, atrial fibrillation. ALLERGIES: NKDA. HOME MEDICATIONS: Lipitor, Toprol, Xanax, primidone, aspirin, omeprazole, Altace. SOCIAL HISTORY: No alcohol or illicit drug abuse. No tobacco smoking. FAMILY HISTORY: Noncontributory. REVIEW OF SYSTEMS: Revealed 12 organ system other than mentioned in history of present illness is negative. PHYSICAL EXAMINATION: VITAL SIGNS: Blood pressure 108/67, heart rate 110, the patient is afebrile, oxygen saturation 98% on partial nonrebreather. HEAD AND NECK: Atraumatic. LUNGS: Clear to auscultation bilaterally. HEART: Regular rate and rhythm. S1, S2 normal. ABDOMEN: Soft, nontender, nondistended. MUSCULOSKELETAL: No C/C/E. NEUROLOGIC: The patient moves all extremities spontaneously. SKIN: Moist. PSYCHIATRIC: The patient is alert and awake. LABORATORY DATA: Sodium 134, potassium 4.7, chloride 99, carbon dioxide 28, BUN 18, creatinine 0.8, glucose 96. AST 23, ALT 25. WBC 7.3, hemoglobin 10.5, platelet count 200. INR 1.05. MEDICATIONS IN THE HOSPITAL: Xanax p.r.n., Lipitor, Cardizem and Lasix p.o. all on hold. Metoprolol switched to IV. Protonix drip started. MiraLax is on hold. Normal saline 100 mL per hour. ASSESSMENT AND PLAN: This is an 86-year-old lady who had rapid response due to massive upper gastrointestinal bleed. At present time, she, however, maintains her blood pressure okay. I will proceed with n.p.o., IV fluids, serial CBC. I will check her ABG with lactic acid and troponin level. She does not have chest pain and her EKG does not show any specific signs of ischemia. As the patient has large quantity of dark blood versus coffee ground hematemesis, I will maintain Hb level above 9. I will hold Eliquis. If the patient continued to bleed despite holding DOA, consideration will be given to transferring the patient to where immediate "antidote" for apixaban is available ([facility]). I will touch base with our pharmacy about this as well. I will continue with Protonix drip, IV fluids. GI consult will be obtained for consideration of upper endoscopy. I will continue with mechanical deep venous thrombosis prophylaxis. I will target euvolemia, euglycemia, normothermia and oxygen saturation more than 90%. The patient did not have a history of chronic liver disease and my suspicion for portal hypertension and variceal bleeding is low. The patient will be transferred to ICU for further management and monitoring. ccm time 40 min Yinka Reyes MD cc: [id number] TT: 11/16/2016 20:20:59 Confirmation # [id number] Dictation # [id number] [facility] ISAACS
[2016-11-16 20:58] LABS: ADD MANUAL DIFF? NO
[2016-11-16 21:09] LABS: BASO # 0.02 K/mm3 (0.0-2.0); BASO % 0.2 % (0.0-3.0); GRAN % 85.1 % (50.0-68.0); LYMPH # 0.9 (1.2-3.4); LYMPH % 8.2 % (22.0-35.0); MEAN CELL VOLUME 88.3 fL (80.0-105.0); MEAN CORPUSCULAR HEMOGLOBIN 27.4 pg (25.0-35.0); MEAN CORPUSCULAR HGB CONC 31.1 g/dl (31.0-37.0); MEAN PLATELET VOLUME 9.6 fl (7.0-11.0); MONO # 0.7 (0.1-0.6); MONO % 6.5 % (1.0-6.0); PLATELET COUNT 220 10^3/uL (120.0-450.0); RED CELL DISTRIBUTION WIDTH 14.7 % (11.5-14.5); WHITE BLOOD COUNT 11.4 10^3/ul (4.5-11.0)
[2016-11-16 21:16] LABS: HEMATOCRIT 21.9 % (36.0-48.0)
--- NOTE | 2016-11-16 23:20 | CON ---
DATE: 11/16/2016 REASON FOR CONSULTATION: GI bleeding. HISTORY OF PRESENT ILLNESS: This 86-year-old patient with a past medical history of coronary artery disease, CABG, COPD, hypertension. He initially admitted with atrial fibrillation with rapid ventric ular response. The patient presented with palpitation and shortness of breath. The patient's rate w as controlled. The patient was started on Eliquis. Today, rapid response was called in the morning and the patient was found to be unresponsive in the bathroom. Her monitor had bradycardia. The anna ent passed out. The patient had only transient, the patient became responsive within a short period of time, but noticed to have blood clots noticed on her pillow and her clothing. The patient also rebollar s episodes of vomiting. The patient was subsequently transferred to the ICU where I saw her. The tre peterson had another episode of vomiting blood. The patient was alert, no complaints of any abdominal p ain. PAST MEDICAL HISTORY: Significant as above. ALLERGIES: No known drug allergy. SOCIAL HISTORY: Denies smoking or alcohol. FAMILY HISTORY: Noncontributory. REVIEW OF SYSTEMS: Positive as above. All other systems reviewed and negative. PHYSICAL EXAMINATION: GENERAL: The patient is lying on the bed, not in acute distress. VITAL SIGNS: Pulse 90, blood pressure 109/50, respirations 21, O2 saturation is 100%. HEENT: Atraumatic, anicteric. NECK: Supple. HEART: S1, S2 heard. . LUNGS: Bilateral air entry present. ABDOMEN: Soft. There is no tenderness. EXTREMITIES: SCDs present. NEUROLOGIC: Alert, oriented. Moves all the extremities. LABORATORY DATA: Hemoglobin 9.1, hematocrit 29.2, WBC is 12.1, platelets 251, BUN is 38, creatinine 1.0. BMP 3120. IMPRESSION: 1. This 86-year-old patient who was admitted with palpitations and shortness of breath, initially fo und to have AFib with rapid ventricular response. The patient's rate was controlled. The patient wa s put on Eliquis. Had this morning rapid response. Transient loss of consciousness and also episode s of vomiting, with blood. Occasional vomiting and then subsequently there was a small amount of blo od noticed. Since the patient was on Eliquis, the patient was transferred to the unit where she had a further episodes of vomiting blood. The differential diagnosis should include erosive esophagitis, Sammie-Smith, and peptic ulcer disease to be considered. I would recommend close followup of the h emoglobin, hematocrit. The patient would NG tube placement as the trauma can cause bleeding in the setting of the patient being on Eliquis. The last dose of the patient's Eliquis was in the a.m. dose. The effect is probably slowly wearing off. If there is an active ongoing bleeding, then we c an consider about . At the moment, we will continue to follow closely. The patient is on Kaya nix drip. We will continue that. 2. AFib with rapid ventricular response. Other problems include coronary artery disease, COPD, anxi ety. We will continue to closely follow up her care. I have discussed with the resident and also [facility] staff at length. We will keep the patient for at the present time n.p.o., except medications. Thank you very much for allowing us to participate in the care of the patient. Lay Owusu MD cc: [id number] TT: 11/16/2016 23:19:43 Confirmation # [id number] Dictation # [id number] [id number]
[2016-11-17] MEDS: Pantoprazole 40mg/100ml IVPB 40 MG/100 ML BAG IVPB SCH ×4 (01:36→23:32)
[2016-11-17 06:34] LABS: ADD MANUAL DIFF? NO
[2016-11-17 06:39] LABS: BASO # 0.01 K/mm3 (0.0-2.0); BASO % 0.1 % (0.0-3.0); GRAN # 13.36 (1.4-6.5); GRAN % 86.7 % (50.0-68.0); LYMPH % 6.4 % (22.0-35.0); MEAN CELL VOLUME 85.6 fL (80.0-105.0); MEAN CORPUSCULAR HEMOGLOBIN 28.4 pg (25.0-35.0); MEAN CORPUSCULAR HGB CONC 33.1 g/dl (31.0-37.0); MEAN PLATELET VOLUME 10.6 fl (7.0-11.0); MONO # 1.1 (0.1-0.6); MONO % 6.8 % (1.0-6.0); PLATELET COUNT 151 10^3/uL (120.0-450.0); RED CELL DISTRIBUTION WIDTH 14.4 % (11.5-14.5); WHITE BLOOD COUNT 15.4 10^3/ul (4.5-11.0)
[2016-11-17 06:53] LABS: ALKALINE PHOSPHATASE 59 U/L (38-133); ALT/SGPT 22 U/L (7-56); AST/SGOT 17 U/L (15-39); BILIRUBIN,TOTAL 0.5 mg/dL (0.2-1.3); BLOOD UREA NITROGEN 60 mg/dL (7-21); CALCIUM 7.4 mg/dL (8.4-10.5); CARBON DIOXIDE 19 mmol/L (21-33); CHLORIDE 106 mmol/L (98-107); GFR AFRICAN-AMERICAN > 60; GLUCOSE,RANDOM 134 mg/dL (70-110); SODIUM 135 mmol/L (132-148); TOTAL PROTEIN 4.6 g/dL (5.8-8.3)
--- NOTE | 2016-11-17 07:34 | PQF ANEMIA ---
This form is a permanent part of the medical record Clarification of your documentation is requested to better reflect the severity of illness and intensity of treatment of your patient. 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 Please document type & acuity of Anemia to reflect severity & intensity of tx see note. GI bleeding secondary to blood loss. [] Anemia [x] Drop in H&H from []9.1/ 29.2___ to []___6..9 [] Hypotension [x] GI Bleed [x] Transfusion(s) [] Acute bleed other sites [] Tachycardia [] Surgical Procedure Blood Loss (expected not a complication) Other:[] Location in the medical record that reflects the above clinical findings: [] Treatment Provided: [] PHYSICIAN'S RESPONSE Based on your medical judgment of the clinical indicators outlined above, are you treating this patient for a known or suspected: [] Acute blood loss anemia [] Chronic blood loss anemia [] Acute on Chronic blood loss anemia [] Anemia due to malignancy [] Anemia due to chemotherapy or radiation therapy [] Anemia of Chronic Disease, please specify: [] [] Other, please indicate type of anemia []____ [] If Unable to Determine, please check the box, sign and date. Present On Admission (POA) Indicator: [] Present at the time of admission [] Not present at the time of admission [] Clinically Undetermined In responding to this query, please exercise your independent professional judgment. The fact that a question is asked does not imply that any particular answer is desired or expected. Thank you for your clarification on this documentation. If you have any questions please call:[ ][phone] * Thank you, [ ] Karen Jimenez RN CDS gas booster engineer [facility]
--- NOTE | 2016-11-17 08:17 | CP.PCM.PN ---
Subjective - Date & Time of Evaluation Date of Evaluation: 11/17/16 Time of Evaluation: 08:12 - Subjective Subjective: ICU Progress Note Patient seen and examined at bedside. Overnight patient vomited 200cc of coffee ground emesis and was having multiple bloody bowel movements. She complains of RLQ abdominal pain, especially when she gets a BM. She received 3U PRBC yesterday. She denies CP, SOB, numbness/tingling, fever or chills. Objective - Vital Signs/Intake and Output Vital Signs (last 24 hours): Temp Pulse Resp BP Pulse Ox 97.8 F 18 L 88 H 93/62 L 99 11/17/16 06:00 11/17/16 06:00 11/17/16 00:20 11/17/16 00:20 11/16/16 18:50 Intake and Output: 11/17/16 11/17/16 06:59 18:59 Intake Total 2950 Output Total 400 Balance 2550 - Medications Medications: Current Medications Alprazolam (Xanax) 0.25 mg PO BID PRN PRN Reason: Anxiety Stop: 11/19/16 08:11 Last Admin: 11/16/16 08:32 Dose: 0.25 mg Atorvastatin Calcium (Lipitor) 20 mg PO HS [facility] Last Admin: 11/15/16 21:16 Dose: 20 mg Diltiazem HCl (Cardizem Cd) 240 mg PO DAILY [facility] Last Admin: 11/16/16 11:44 Dose: Not Given Furosemide (Lasix) 20 mg PO DAILY [facility] Last Admin: 11/16/16 10:07 Dose: 20 mg Pantoprazole Sodium (Protonix 40mg Ivpb) 40 mg in 100 mls @ 20 mls/hr IVPB .Q5H [facility] Last Admin: 11/17/16 01:36 Dose: 20 mls/hr Sodium Chloride (Sodium Chloride 0.9%) 1,000 mls @ 100 mls/hr IV .Q10H [facility] Metoprolol Succinate (Toprol Xl) 50 mg PO DAILY [facility] Last Admin: 11/16/16 10:07 Dose: 50 mg Metoprolol Tartrate (Lopressor) 5 mg IVP Q6 [facility] Last Admin: 11/17/16 00:00 Dose: Not Given Ondansetron HCl (Zofran Inj) 8 mg IVP Q6H PRN PRN Reason: Nausea/Vomiting Last Admin: 11/17/16 02:53 Dose: 8 mg Polyethylene Glycol (Miralax) 17 gm PO DAILY [facility] Last Admin: 11/16/16 13:43 Dose: 17 gm Ramipril (Altace) 5 mg PO DAILY [facility] Last Admin: 11/16/16 10:06 Dose: 5 mg Simethicone (Mylicon Liq) 40 mg PO QID [facility] Last Admin: 11/16/16 15:48 Dose: Not Given - Labs Labs: 11/17/16 06:15 11/17/16 06:15 PT 12.7 Seconds (9.9-11.8) H 11/16/16 14:30 INR 1.18 (0.93-1.08) H 11/16/16 14:30 APTT 25.0 Seconds (23.7-30.8) 11/16/16 14:30 - Constitutional Appears: No Acute Distress - Head Exam Head Exam: ATRAUMATIC, NORMAL INSPECTION, NORMOCEPHALIC - Eye Exam Eye Exam: PERRL Pupil Exam: NORMAL ACCOMODATION, PERRL - ENT Exam ENT Exam: Mucous Membranes Moist - Neck Exam Neck Exam: Full ROM - Respiratory Exam Respiratory Exam: Clear to Ausculation Bilateral, NORMAL BREATHING PATTERN. absent: Rales, Rhonchi, Wheezes - Cardiovascular Exam Cardiovascular Exam: Tachycardia, REGULAR RHYTHM, +S1, +S2. absent: Gallop, Rubs, Murmur - GI/Abdominal Exam GI & Abdominal Exam: Soft, Tenderness, Hyperactive Bowel Sounds. absent: Rigid , Mass, Rebound - Extremities Exam Extremities Exam: Normal Inspection. absent: Calf Tenderness, Pedal Edema - Neurological Exam Neurological Exam: Alert, Awake, CN II-XII Intact, Oriented x3 - Psychiatric Exam Psychiatric exam: Normal Affect, Normal Mood - Skin Skin Exam: Dry, Intact, Normal Color, Warm Assessment and Plan - Assessment and Plan (Free Text) Assessment: This is an 86Y F with PMH COPD, HTN, sinusitis, CAD, prothestic mitral valve, A.fib who was originally admitted for leg edema and A.fib. She was not on anticoagulation at home. She was started on Eliquis during this stay. Yesterday an DIPLOMATIC INTERPRETER was called for syncopal episode and hematemesis. Patient was transferred to ICU for further monitoring. Plan: Neuro: A&O x 3 Neurochecks to monitor mental status CV: BP stable on NS@100 Cardio consulted- recs appreciated Tachycardic, in a.fib - anticoag on hold for GI bleed Tropinin neg x 2 Pulm: Comfortable on room air Maintain spO2>90% GI: Hematemesis and Hematochezia GI consulted Protonix drip Zofran prn nausea NPO Monitor I&O Nephro: Will continue to monitor electrolytes Continue to maintain euvolemia Heme: Hgb dropped to 6.8 overnight- s/p 3U PRBC Hgb now 11.6 Will monitor q6h Pt has overt signs of bleeding Eliquis half life about 12hrs- now out of pt system ID: Leukocytosis, afebrile Maintain normothermia Endo: Will maintain euglycemia GI ppx: PTX drip DVT ppx: SCDs Case seen, discussed and reviewed with attending. Dayanara Osborne PGY1
--- NOTE | 2016-11-17 08:27 | PN ---
DATE: 11/17/2016 The patient seen and examined at bedside. She is comfortable. She talks full sentences. She is not in respiratory or otherwise distress. She still has melena and still vomited a little bit of dark blood overnight. She got 3 units of PRBC and her hemoglobin went up from 6.8 to 11.6. PHYSICAL EXAMINATION: VITAL SIGNS: Heart rate 101, blood pressure 133/89, oxygen saturation 99% on room air. HEAD AND NECK: Atraumatic. LUNGS: Clear to auscultation bilaterally. HEART: Regular rate and rhythm. S1, S2 normal. ABDOMEN: Soft, nontender, nondistended. MUSCULOSKELETAL: No C/C/E. NEUROLOGIC: The patient moves all extremities spontaneously. SKIN: Moist. PSYCHIATRIC: The patient is alert and oriented x 3. LABORATORY DATA: WBC 15.4, hemoglobin 11.6, platelet count 151. Sodium 135, potassium 5, chloride 106, carbon dioxide 19, BUN 60, creatinine 0.9, glucose 134. AST 17, ALT 22. Lactic acid 1.6. MEDICATIONS: Metoprolol 5 mg IV q. 6, Zofran p.r.n., Protonix drip, normal saline 100 mL per hour. ASSESSMENT AND PLAN: This is an 86-year-old lady with massive upper gastrointestinal bleed in the setting of anticoagulation with Eliquis for atrial fibrillation. The patient is n.p.o., IV fluids are going. The patient received 3 units of PRBC overnight with hemoglobin 11.6. Coags and platelet level are within normal limits. The patient is hemodynamically relatively stable except for mild tachycardia in the setting of atrial fibrillation ( periodically). Troponin x 2 negative. No chest pain. No signs of end organ dysfunction. The patient is mentating well. Creatinine level is within normal limits. Will continue to target euvolemia, euglycemia, normothermia and oxygen saturation more than 90%. Will continue with DVT and GI prophylaxis. GI follow up is ongoing. ccm time 40 min Yinka Reyes MD cc: [id number] TT: 11/17/2016 08:26:26 Confirmation # [id number] Dictation # [id number] [facility]
[2016-11-17 09:12] LABS: ADD MANUAL DIFF? NO
[2016-11-17 09:17] LABS: BASO # 0.01 K/mm3 (0.0-2.0); BASO % 0.1 % (0.0-3.0); GRAN # 12.56 (1.4-6.5); GRAN % 86.8 % (50.0-68.0); HEMATOCRIT 31.2 % (36.0-48.0); LYMPH # 0.9 (1.2-3.4); LYMPH % 6.3 % (22.0-35.0); MEAN CORPUSCULAR HEMOGLOBIN 28.4 pg (25.0-35.0); MEAN PLATELET VOLUME 10.2 fl (7.0-11.0); MONO % 6.8 % (1.0-6.0); PLATELET COUNT 149 10^3/uL (120.0-450.0); RED CELL DISTRIBUTION WIDTH 14.5 % (11.5-14.5); WHITE BLOOD COUNT 14.5 10^3/ul (4.5-11.0)
[2016-11-17] MEDS ORDERED: Morphine 2 mg/ml ISec IVP PRN (09:37)
--- NOTE | 2016-11-17 10:01 | PN ---
DATE: 11/17/2016 DATE: 11/17/2016 SUBJECTIVE: The patient has no complaint of any chest pain or shortness of breath. The events from yesterday were noted. She says she has been having diarrhea and said it is bloody. PHYSICAL EXAMINATION: VITAL SIGNS: Temperature is 97.8, pulse of 18. Blood pressure is 93/62, respirations 18. GENERAL: The patient is comfortable, in no acute distress. HEENT: Anicteric sclerae. Moist mucosa. NECK: No JVD or adenopathy. CARDIAC: S1/S2. No murmurs. No rubs. Regular. RESPIRATORY: Clear to auscultation bilaterally. No wheezes, rales, or rhonchi. Good air entry. ABDOMEN: Bowel sounds are positive, soft, nontender, and nondistended. EXTREMITIES: No edema. Has 1+ pulses. LABORATORY DATA: White count of 14.5. Hemoglobin is 10.3. Creatinine is 0.9. ASSESSMENT: 1. Acute anemia secondary to blood loss, severe. 2. Atrial fibrillation. 3. Dyslipidemia. 4. Coronary artery disease. 5. Hypertension. 6. Chronic obstructive pulmonary disease. PLAN: The patient did receive transfusion yesterday. The patient's Cardizem is on hold because of h ypotension. The patient is on Lipitor. ____ have been placed on hold. She is on Protonix. The pat ient is n.p.o. We will need to continue following her hemoglobin. It had decreased to 6.8. It is 1 0.3. She is being followed by Dr. Owusu. We will continue to follow closely. She is currently s table at this point. Wilfred Cheatham MD cc: [id number] TT: 11/17/2016 10:01:19 Confirmation # [id number] Dictation # [id number] [facility]
[2016-11-17 10:33] LABS: ADD MANUAL DIFF? NO
--- NOTE | 2016-11-17 10:35 | PN ---
DATE: 11/17/2016 SUBJECTIVE: The patient is seen lying in bed in the ICU. She developed evidence of acute gastrointe stinal bleeding yesterday and was transferred to the unit. Her hemoglobin had fallen to 6.8. She wa s transfused and repeat hemoglobin is now 10.3. She remains in atrial fibrillation with a moderate v entricular response. CURRENT MEDICATIONS: Include metoprolol 5 mg q. 6 hours, Protonix infusion and IV fluids. OBJECTIVE: GENERAL: She is a frail-appearing, very elderly woman. VITAL SIGNS: Her blood pressure is 92/62 with a pulse of 130 and respirations are 18. She is afebri le. HEENT: No JVD. CHEST: Bilateral scattered rhonchi. HEART: PMI displaced laterally with an irregularly irregular rhythm. ABDOMEN: Soft with mild diffuse tenderness. Bowel sounds are present. EXTREMITIES: No edema. DIAGNOSTIC DATA: Potassium is 5.0, BUN and creatinine are 16 and 0.9, white count 14.5 with hemoglob in and hematocrit 10.3 and 31.2, platelet count is 149,000. IMPRESSION: 1. Acute gastrointestinal bleeding with major drop in her hemoglobin requiring transfusion, underlyi ng cause to be determined. Apparently, still having intermittent bloody diarrhea. Yesterday, she rebollar d hematemesis. 2. Chronic atrial fibrillation with moderately increased ventricular rate. Increased heart rate may in part be due to recent blood loss and stress of illness. 3. Rest of problems as noted. 4. Coronary artery disease, status post prior bypass surgery and mitral valve replacement. 5. Moderate aortic stenosis. RECOMMENDATIONS: Current management should be continued. IV metoprolol will be continued for heart rate control. If necessary, IV digoxin can be added as well. She appears hemodynamically stable at the present time. Serial CBCs will be checked. If upper endoscopy is planned, she appears to be at mildly increased cardiac risk, but the risk appears to be acceptable at the present time. Obviously, anticoagulation needs to be withheld given these events. We will continue to follow along and make further recommendations as appropriate. Silverio Vickers MD cc: [id number] TT: 11/17/2016 10:35:16 Confirmation # [id number] Dictation # [id number] tn
[2016-11-17 10:36] LABS: BASO # 0.01 K/mm3 (0.0-2.0); GRAN # 18.07 (1.4-6.5); GRAN % 87.7 % (50.0-68.0); HEMATOCRIT 30.8 % (36.0-48.0); LYMPH # 1.3 (1.2-3.4); LYMPH % 6.4 % (22.0-35.0); MEAN CELL VOLUME 86.8 fL (80.0-105.0); MEAN CORPUSCULAR HEMOGLOBIN 28.7 pg (25.0-35.0); MEAN CORPUSCULAR HGB CONC 33.1 g/dl (31.0-37.0); MEAN PLATELET VOLUME 10.2 fl (7.0-11.0); MONO # 1.2 (0.1-0.6); MONO % 5.9 % (1.0-6.0); PLATELET COUNT 141 10^3/uL (120.0-450.0); RED CELL DISTRIBUTION WIDTH 14.7 % (11.5-14.5); WHITE BLOOD COUNT 20.6 10^3/ul (4.5-11.0)
[2016-11-17] MEDS: Sodium Chloride 0.9% 1,000 ML IV SCH ×2 (10:48→23:30)
[2016-11-17] MEDS: Metoprolol 1 mg/ml Inj IVP SCH ×6 (12:44→21:47)
--- NOTE | 2016-11-17 13:26 | PN ---
DATE: 11/17/2016 Seen and examined at the bedside earlier this morning. The patient is awake and alert. 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 She is currently incontinent of dark stool. There is a suction connected to wa ll suction and it drained at least 250 mL from the evening shift. The patient denies shortness of br eath, chest pain. She does have some abdominal discomfort. The patient is status post 3 units of pa cked RBCs. VITAL SIGNS: Temperature is 97.8, blood pressure is 98/70, pulse rate is 80. LABORATORIES: Hemoglobin is 15.4, H and H is 11.6 and 35.0, her platelets are 151. It was repeated again at 9:00 and the H and H is 10.3 and 31.2 and now again at 10:30, it is 10.2 and 30.8. PHYSICAL EXAMINATION: HEENT: Sclera is anicteric. NECK: Supple. CARDIAC: S1, S2. LUNG SOUNDS: With decreased breath sounds at the bases, but good air entry, no rales or wheeze. ABDOMEN: With bowel sounds, soft, not distended. She does have some mid abdomen tenderness. No kyle ound, guarding. EXTREMITIES: No edema. NEUROLOGIC: Awake, alert, and oriented. ASSESSMENT: The patient with anemia secondary to gastrointestinal bleed. The patient has history of atrial fibrillation. She is off Eliquis. History of coronary artery disease, hypertension. The pa tient with also other comorbidities of chronic obstructive pulmonary disease, anxiety. PLAN: Remains n.p.o., IV fluids for hydration. We will request for a stat bleeding scan. Continue Protonix drip. Last dose of Eliquis was yesterday morning. Continue to monitor H and H q. 4 hours. We will follow up the bleeding scan and make further recommendations based upon patient's clinical c ourse as well. The patient would benefit from an endoscopy. The patient was seen and case discussed with Dr. Owusu. Kita BUENO cc: [id number] TT: 11/17/2016 13:25:36 Confirmation # [id number] Dictation # [id number] en
[2016-11-17] MEDS ORDERED: Sodium Chloride 0.9% 1,000 ML IV STA (14:23)
[2016-11-17 16:06] LABS: ADD MANUAL DIFF? NO
[2016-11-17 16:15] LABS: BASO # 0.01 K/mm3 (0.0-2.0); BASO % 0.1 % (0.0-3.0); GRAN # 10.86 (1.4-6.5); GRAN % 82.9 % (50.0-68.0); HEMATOCRIT 28.1 % (36.0-48.0); LYMPH # 1.1 (1.2-3.4); LYMPH % 8.2 % (22.0-35.0); MEAN CELL VOLUME 86.5 fL (80.0-105.0); MEAN CORPUSCULAR HEMOGLOBIN 28.6 pg (25.0-35.0); MEAN CORPUSCULAR HGB CONC 33.1 g/dl (31.0-37.0); MEAN PLATELET VOLUME 10.4 fl (7.0-11.0); MONO # 1.2 (0.1-0.6); MONO % 8.8 % (1.0-6.0); PLATELET COUNT 142 10^3/uL (120.0-450.0); RED CELL DISTRIBUTION WIDTH 15.1 % (11.5-14.5); WHITE BLOOD COUNT 13.1 10^3/ul (4.5-11.0)
--- NOTE | 2016-11-17 16:41 | NM ---
PROCEDURE: Nuclear medicine gastrointestinal bleeding scan. HISTORY: rectal bleeding COMPARISON: None available. TECHNIQUE: 4 cc of patient blood was withdrawn and mixed with 25.2 of technetium ultra tagged. Images of the abdomen and pelvis were obtained in the anterior and posterior projection at 1 min intervals over a period of 45 min. FINDINGS: No abnormal extravasation of tracer was observed throughout the exam to indicate active bleeding within or outside the gastrointestinal tract. Physiologic activity was seen in the heart, liver, spleen and blood vessels. IMPRESSION: No evidence of active gastrointestinal bleeding during the time of this exam.
[2016-11-17 20:22] LABS: ADD MANUAL DIFF? NO
[2016-11-17 20:23] LABS: BASO # 0.02 K/mm3 (0.0-2.0); BASO % 0.2 % (0.0-3.0); EOS % 0.1 % (1.5-5.0); GRAN # 9.03 (1.4-6.5); GRAN % 77.6 % (50.0-68.0); HEMATOCRIT 26.5 % (36.0-48.0); LYMPH # 1.5 (1.2-3.4); LYMPH % 13.3 % (22.0-35.0); MEAN CELL VOLUME 86.9 fL (80.0-105.0); MEAN CORPUSCULAR HEMOGLOBIN 28.5 pg (25.0-35.0); MEAN CORPUSCULAR HGB CONC 32.8 g/dl (31.0-37.0); MEAN PLATELET VOLUME 10.3 fl (7.0-11.0); MONO % 8.8 % (1.0-6.0); PLATELET COUNT 151 10^3/uL (120.0-450.0); RED CELL DISTRIBUTION WIDTH 15.3 % (11.5-14.5); WHITE BLOOD COUNT 11.6 10^3/ul (4.5-11.0)
--- NOTE | 2016-11-17 21:52 | PN ---
DATE: 11/17/2016 ADDENDUM HISTORY OF PRESENT ILLNESS: This is an addendum to the GI progress report dictated by Javier Oliver. This was discussed with county judge. Discussed with nursing staff. The patient's hemoglobin st ill showing a slightly downward trend; however, on review of the blood chemistry, albumin also showin g downward trend. Part of the drop in blood count could be due to hemodilution. However, the patien t did have episodes of melena. Partly, it could be due to oozing of some bleeding, but mostly may be related to old bleeding. The Eliquis gone off. PHYSICAL EXAMINATION: Abdomen is soft. There is no tenderness. RECOMMENDATIONS: Followup of the hemoglobin and hematocrit, continue the PPI. The patient is schedu led for an upper GI endoscopy in a.m. Thank you very much for allowing us to participate in the care of the patient. Lay Owusu MD cc: [id number] TT: 11/17/2016 21:51:52 Confirmation # [id number] Dictation # [id number] ln
[2016-11-18 00:39] LABS: ADD MANUAL DIFF? NO
[2016-11-18 00:44] LABS: BASO # 0.03 K/mm3 (0.0-2.0); BASO % 0.3 % (0.0-3.0); EOS # 0.1 (0.0-0.7); EOS % 0.5 % (1.5-5.0); GRAN # 8.39 (1.4-6.5); GRAN % 72.6 % (50.0-68.0); HEMATOCRIT 26.4 % (36.0-48.0); LYMPH # 1.9 (1.2-3.4); LYMPH % 16.2 % (22.0-35.0); MEAN CELL VOLUME 87.1 fL (80.0-105.0); MEAN CORPUSCULAR HEMOGLOBIN 28.4 pg (25.0-35.0); MEAN CORPUSCULAR HGB CONC 32.6 g/dl (31.0-37.0); MONO # 1.2 (0.1-0.6); MONO % 10.4 % (1.0-6.0); PLATELET COUNT 140 10^3/uL (120.0-450.0); RED CELL DISTRIBUTION WIDTH 15.4 % (11.5-14.5); WHITE BLOOD COUNT 11.6 10^3/ul (4.5-11.0)
[2016-11-18] MEDS: Metoprolol 1 mg/ml Inj IVP SCH ×6 (01:30→22:21)
[2016-11-18] MEDS: Pantoprazole 40mg/100ml IVPB 40 MG/100 ML BAG IVPB SCH (04:37)
[2016-11-18] MEDS: diltiaZEM IVPB 100mg in NS 100 ML IV PRN ×2 (04:38→13:34)
[2016-11-18 06:54] LABS: MEAN CELL VOLUME 88.1 fL (80.0-105.0); MEAN CORPUSCULAR HEMOGLOBIN 28.5 pg (25.0-35.0); MEAN CORPUSCULAR HGB CONC 32.3 g/dl (31.0-37.0); MEAN PLATELET VOLUME 10.7 fl (7.0-11.0); RED CELL DISTRIBUTION WIDTH 15.9 % (11.5-14.5); WHITE BLOOD COUNT 11.1 10^3/ul (4.5-11.0)
[2016-11-18 06:56] LABS: INR 1.05 (0.93-1.08)
[2016-11-18 06:59] LABS: ALB/GLOB RATIO 1.1 (1.1-1.8); ALKALINE PHOSPHATASE 58 U/L (38-133); ALT/SGPT 25 U/L (7-56); AST/SGOT 19 U/L (15-39); BILIRUBIN,TOTAL 0.3 mg/dL (0.2-1.3); BLOOD UREA NITROGEN 41 mg/dL (7-21); CALCIUM 7.6 mg/dL (8.4-10.5); CARBON DIOXIDE 19 mmol/L (21-33); CHLORIDE 115 mmol/L (98-107); GFR AFRICAN-AMERICAN > 60; GLUCOSE,RANDOM 107 mg/dL (70-110); SODIUM 141 mmol/L (132-148); TOTAL PROTEIN 4.8 g/dL (5.8-8.3)
--- NOTE | 2016-11-18 07:10 | CP.PCM.PN ---
<WandaherminioLucie hernandez - Last Filed: 11/18/16 11:27> Subjective - Date & Time of Evaluation Date of Evaluation: 11/18/16 Time of Evaluation: 07:09 - Subjective Subjective: ICU Progress Note Patient seen and examined at bedside. Overnight she remained tachycardic in A.fib and was put on Cardizem drip. This am, she reports feeling better. She does feel her heart beating fast, but denies CP, SOB, n/v/d, numbness/tingling, fever or chills. She has not had any hematemesis or overt signs of bleeding. She says she feels hungry. Objective - Vital Signs/Intake and Output Vital Signs (last 24 hours): Temp Pulse Resp BP Pulse Ox 97.6 F 119 H 25 H 125/80 92 L 11/18/16 06:00 11/18/16 06:20 11/18/16 06:20 11/18/16 06:00 11/18/16 06:20 Intake and Output: 11/18/16 11/18/16 06:59 18:59 Intake Total 1440 Balance 1440 - Medications Medications: Current Medications Alprazolam (Xanax) 0.25 mg PO BID PRN PRN Reason: Anxiety Stop: 11/19/16 08:11 Last Admin: 11/16/16 08:32 Dose: 0.25 mg Atorvastatin Calcium (Lipitor) 20 mg PO HS [facility] Last Admin: 11/15/16 21:16 Dose: 20 mg Diltiazem HCl (Cardizem Cd) 240 mg PO DAILY [facility] Last Admin: 11/16/16 11:44 Dose: Not Given Furosemide (Lasix) 20 mg PO DAILY [facility] Last Admin: 11/16/16 10:07 Dose: 20 mg Pantoprazole Sodium (Protonix 40mg Ivpb) 40 mg in 100 mls @ 20 mls/hr IVPB .Q5H [facility] Last Admin: 11/18/16 04:37 Dose: 20 mls/hr Sodium Chloride (Sodium Chloride 0.9%) 1,000 mls @ 100 mls/hr IV .Q10H [facility] Last Admin: 11/17/16 23:30 Dose: 100 mls/hr diltiaZEM IVPB 100mg in NS (Cardizem 100mg In Ns) 100 mls @ 10 mls/hr IV .Q10H PRN; Protocol; 10 MG/HR PRN Reason: TITRATE PER MD ORDER Last Admin: 11/18/16 04:38 Dose: 10 mg/hr, 10 mls/hr Metoprolol Succinate (Toprol Xl) 50 mg PO DAILY [facility] Last Admin: 11/16/16 10:07 Dose: 50 mg Metoprolol Tartrate (Lopressor) 5 mg IVP Q4H [facility] Last Admin: 11/18/16 01:30 Dose: 5 mg Morphine Sulfate (Morphine) 0.5 mg IVP Q4H PRN PRN Reason: Pain, severe (8-10) Ondansetron HCl (Zofran Inj) 8 mg IVP Q6H PRN PRN Reason: Nausea/Vomiting Last Admin: 11/17/16 02:53 Dose: 8 mg Polyethylene Glycol (Miralax) 17 gm PO DAILY [facility] Last Admin: 11/16/16 13:43 Dose: 17 gm Ramipril (Altace) 5 mg PO DAILY [facility] Last Admin: 11/16/16 10:06 Dose: 5 mg Simethicone (Mylicon Liq) 40 mg PO QID [facility] Last Admin: 11/16/16 15:48 Dose: Not Given - Labs Labs: 11/18/16 05:45 11/18/16 05:45 PT 11.3 Seconds (9.9-11.8) 11/18/16 05:45 INR 1.05 (0.93-1.08) 11/18/16 05:45 APTT 25.0 Seconds (23.7-30.8) 11/16/16 14:30 - Constitutional Appears: No Acute Distress - Head Exam Head Exam: ATRAUMATIC, NORMAL INSPECTION, NORMOCEPHALIC - Eye Exam Eye Exam: Normal appearance, PERRL Pupil Exam: NORMAL ACCOMODATION, PERRL - ENT Exam ENT Exam: Mucous Membranes Moist - Neck Exam Neck Exam: Normal Inspection - Respiratory Exam Respiratory Exam: Clear to Ausculation Bilateral, NORMAL BREATHING PATTERN. absent: Rales, Rhonchi, Wheezes - Cardiovascular Exam Cardiovascular Exam: Tachycardia, Irregular Rhythm, +S1, +S2. absent: Gallop, Rubs, Murmur - GI/Abdominal Exam GI & Abdominal Exam: Soft, Normal Bowel Sounds. absent: Rigid, Tenderness, Mass , Rebound - Extremities Exam Extremities Exam: Normal Inspection. absent: Calf Tenderness, Pedal Edema - Neurological Exam Neurological Exam: Alert, Awake, CN II-XII Intact, Oriented x3 - Psychiatric Exam Psychiatric exam: Normal Affect, Normal Mood - Skin Skin Exam: Dry, Intact, Normal Color, Warm Assessment and Plan - Assessment and Plan (Free Text) Assessment: This is an 86Y F with PMH COPD, HTN, sinusitis, CAD, prothestic mitral valve, A.fib who was originally admitted for leg edema and A.fib. She was not on anticoagulation at home. She was started on Eliquis during this stay. [employer]ER was called for syncopal episode and hematemesis. Patient was transferred to ICU for further monitoring. Plan is for EGD today. Plan: Neuro: A&O x 3 Maintain normothermia CV: BP stable Tachycardic- on cardizem drip Will restart PO meds as tolerated Cardio consulted- recs appreciated Pulm: Comfortable on NC 2L Maintain spO2>90% GI: Upper GI Bleed- no overt signs of bleeding at this time GI consulted EGD showed non-bleeding esophageal ulcers with barretts esophagitis Protonix drip Zofran prn nausea Will advance diet as tolerated Monitor I&O Nephro: Will continue to monitor electrolytes Continue to maintain euvolemia Heme: s/p 3U PRBC- Pt has overt signs of bleeding Hgb stable at 8.4 Will transfuse if <7 Eliquis last given 48h ago- now out of system ID: Mild leukocytosis, afebrile Continue to monitor Endo: Will maintain euglycemia GI ppx: PTX drip DVT ppx: SCDs Case seen, discussed and reviewed with attending. Dayanara Osborne PGY1 <Damien VERA,[facility] - Last Filed: 11/18/16 14:27> Objective - Vital Signs/Intake and Output Vital Signs (last 24 hours): Temp Pulse Resp BP Pulse Ox 98.8 F 110 H 22 124/73 93 L 11/18/16 13:42 11/18/16 13:42 11/18/16 13:42 11/18/16 13:42 11/18/16 13:42 Intake and Output: 11/18/16 11/18/16 06:59 18:59 Intake Total 1440 100 Balance 1440 100 - Medications Medications: Current Medications Alprazolam (Xanax) 0.25 mg PO BID PRN PRN Reason: Anxiety Stop: 11/19/16 08:11 Last Admin: 11/16/16 08:32 Dose: 0.25 mg Atorvastatin Calcium (Lipitor) 20 mg PO HS [facility] Last Admin: 11/15/16 21:16 Dose: 20 mg Diltiazem HCl (Cardizem Cd) 240 mg PO DAILY [facility] Last Admin: 11/16/16 11:44 Dose: Not Given Furosemide (Lasix) 20 mg PO DAILY [facility] Last Admin: 11/16/16 10:07 Dose: 20 mg Sodium Chloride (Sodium Chloride 0.9%) 1,000 mls @ 100 mls/hr IV .Q10H [facility] Last Admin: 11/17/16 23:30 Dose: 100 mls/hr diltiaZEM IVPB 100mg in NS (Cardizem 100mg In Ns) 100 mls @ 10 mls/hr IV .Q10H PRN; Protocol; 10 MG/HR PRN Reason: TITRATE PER MD ORDER Last Admin: 11/18/16 13:34 Dose: 10 mg/hr, 10 mls/hr Metoprolol Succinate (Toprol Xl) 50 mg PO DAILY [facility] Last Admin: 11/16/16 10:07 Dose: 50 mg Metoprolol Tartrate (Lopressor) 5 mg IVP Q4H [facility] Last Admin: 11/18/16 13:30 Dose: 5 mg Morphine Sulfate (Morphine) 0.5 mg IVP Q4H PRN PRN Reason: Pain, severe (8-10) Ondansetron HCl (Zofran Inj) 8 mg IVP Q6H PRN PRN Reason: Nausea/Vomiting Last Admin: 11/17/16 02:53 Dose: 8 mg Polyethylene Glycol (Miralax) 17 gm PO DAILY [facility] Last Admin: 11/16/16 13:43 Dose: 17 gm Ramipril (Altace) 5 mg PO DAILY [facility] Last Admin: 11/16/16 10:06 Dose: 5 mg Simethicone (Mylicon Liq) 40 mg PO QID [facility] Last Admin: 11/16/16 15:48 Dose: Not Given - Labs Labs: 11/18/16 05:45 11/18/16 05:45 PT 11.3 Seconds (9.9-11.8) 11/18/16 05:45 INR 1.05 (0.93-1.08) 11/18/16 05:45 APTT 25.0 Seconds (23.7-30.8) 11/16/16 14:30 Attending/Attestation - Attestation I have personally seen and examined this patient.: Yes I have fully participated in the care of the patient.: Yes I have reviewed all pertinent clinical information, including history, physical exam and plan: Yes Notes (Text): 11/18/16 14:26 86 y/o F w/ Bright upper GI bleed Likely from the multiple ulcers seen on EGD today Barretts found and brings up concern for malignancy May need ct chest/ abd/ pelvis to check for tumor . Currently HGb stable > 7. hemodyamics stable A FIB on cardizem overnight , titrate to keep HR < 130. BP > 90. DVT P SCD PPI to be continued. cc time 65 min
--- NOTE | 2016-11-18 07:48 | CP.PCM.PN ---
Subjective - Date & Time of Evaluation Date of Evaluation: 11/18/16 Time of Evaluation: 07:00 - Subjective Subjective: Stable in ICU s/p GIB. Events of last 48 hrs noted. I spoke with Dr. Vickers. No chest pain, sob. On IV cardizem drip. S/P 3 units RBCs V/S noted. AF with moderate rates PE: Lungs: rhonchi Cor.: irreg., S1S2 Abd.: soft Ext: no edema Neuro.: alert Labs noted: H/H Bleeding scan: Neg. Objective - Vital Signs/Intake and Output Vital Signs (last 24 hours): Temp Pulse Resp BP Pulse Ox 97.6 F 110 H 18 142/71 96 11/18/16 06:00 11/18/16 07:10 11/18/16 07:10 11/18/16 07:00 11/18/16 07:10 Intake and Output: 11/18/16 11/18/16 06:59 18:59 Intake Total 1440 Balance 1440 - Medications Medications: Current Medications Alprazolam (Xanax) 0.25 mg PO BID PRN PRN Reason: Anxiety Stop: 11/19/16 08:11 Last Admin: 11/16/16 08:32 Dose: 0.25 mg Atorvastatin Calcium (Lipitor) 20 mg PO HS [facility] Last Admin: 11/15/16 21:16 Dose: 20 mg Diltiazem HCl (Cardizem Cd) 240 mg PO DAILY [facility] Last Admin: 11/16/16 11:44 Dose: Not Given Furosemide (Lasix) 20 mg PO DAILY [facility] Last Admin: 11/16/16 10:07 Dose: 20 mg Pantoprazole Sodium (Protonix 40mg Ivpb) 40 mg in 100 mls @ 20 mls/hr IVPB .Q5H [facility] 234 [facility]S [facility] Last Admin: 11/18/16 04:37 Dose: 20 mls/hr Sodium Chloride (Sodium Chloride 0.9%) 1,000 mls @ 100 mls/hr IV .Q10H [facility] 234 [facility]S [facility] Last Admin: 11/17/16 23:30 Dose: 100 mls/hr diltiaZEM IVPB 100mg in NS (Cardizem 100mg In Ns) 100 mls @ 10 mls/hr IV .Q10H PRN; Protocol; 10 MG/HR PRN Reason: TITRATE PER MD ORDER Last Admin: 11/18/16 04:38 Dose: 10 mg/hr, 10 mls/hr Metoprolol Succinate (Toprol Xl) 50 mg PO DAILY [facility] Last Admin: 11/16/16 10:07 Dose: 50 mg Metoprolol Tartrate (Lopressor) 5 mg IVP Q4H [facility] Last Admin: 11/18/16 05:35 Dose: 5 mg Morphine Sulfate (Morphine) 0.5 mg IVP Q4H PRN PRN Reason: Pain, severe (8-10) Ondansetron HCl (Zofran Inj) 8 mg IVP Q6H PRN PRN Reason: Nausea/Vomiting Last Admin: 11/17/16 02:53 Dose: 8 mg Polyethylene Glycol (Miralax) 17 gm PO DAILY [facility] 234 [facility] Last Admin: 11/16/16 13:43 Dose: 17 gm Ramipril (Altace) 5 mg PO DAILY [facility] 234 [facility] Last Admin: 11/16/16 10:06 Dose: 5 mg Simethicone (Mylicon Liq) 40 mg PO QID [facility] Last Admin: 11/16/16 15:48 Dose: Not Given - Labs Labs: 11/18/16 05:45 11/18/16 05:45 PT 11.3 Seconds (9.9-11.8) 11/18/16 05:45 INR 1.05 (0.93-1.08) 11/18/16 05:45 APTT 25.0 Seconds (23.7-30.8) 11/16/16 14:30 Assessment and Plan - Assessment and Plan (Free Text) Assessment: Acute GIB while on Eliquis for AF. AF with RVR CAD/CABG/MVR/PCI COPD/Bronchitis/Sinusitis HBP Cataract surgery Echo: mod. MR and mild/mod PH Plan: Continue IV Diltiazem and IV metoprolol for now while NPO. EGD planned for today As per GI and Intensivists. Monitor: labs, H/H, I/O, sats. etc.
[2016-11-18] MEDS ORDERED: Lidocaine 2% Inj (20ml) ONE (10:27)
[2016-11-18] MEDS ORDERED: Propofol 10 mg/ml Inj (20 ML) ONE (10:27)
--- NOTE | 2016-11-18 11:35 | PN ---
DATE: 11/18/2016 DATE: 11/18/2016 SUBJECTIVE: The patient has no complaints of any chest pain, no shortness of breath, no headaches. PHYSICAL EXAMINATION: VITAL SIGNS: Temperature is 98.1, pulse of 87, blood pressure 117/75, respirations 20. GENERAL: The patient is comfortable, in no acute distress. HEENT: Anicteric sclerae. Moist mucosa. NECK: No JVD or adenopathy. CARDIAC: S1/S2. No murmurs. No rubs. Regular. RESPIRATORY: Clear to auscultation bilaterally. No wheezes, rales, or rhonchi. Good air entry. ABDOMEN: Bowel sounds are positive, soft, nontender, and nondistended. EXTREMITIES: No edema. Has 1+ pulses. LABORATORY DATA: White count of 11.1. Hemoglobin is 8.4. Creatinine is 0.9. ASSESSMENT: 1. Acute anemia secondary to blood loss from gastrointestinal bleeding, severe. 2. Atrial fibrillation, not on anticoagulation. 3. Dyslipidemia. 4. Coronary artery disease. 5. Hypertension. 6. Chronic obstructive pulmonary disease. PLAN: The patient is currently comfortable. He is on morphine for pain. He is receiving Protonix. The patient's Toprol is on hold. She remains n.p.o. She is going for endoscopy today. Going to rebollar ve repeat blood work tomorrow. Her hemoglobin is stabilized 8.4. She is in the ICU. She will deniz nue. Her white count has improved as well. Wilfred Cheatham MD cc: [id number] TT: 11/18/2016 11:34:37 Confirmation # [id number] Dictation # [id number] [facility]
[2016-11-18] MEDS: Sodium Chloride 0.9% 1,000 ML IV SCH ×2 (16:56→22:23)
[2016-11-19] MEDS: Metoprolol 1 mg/ml Inj IVP SCH ×2 (01:30→07:27)
[2016-11-19 07:05] LABS: HEMATOCRIT 24.4 % (36.0-48.0); MEAN CELL VOLUME 90.7 fL (80.0-105.0); MEAN CORPUSCULAR HEMOGLOBIN 28.3 pg (25.0-35.0); MEAN CORPUSCULAR HGB CONC 31.1 g/dl (31.0-37.0); MEAN PLATELET VOLUME 10.6 fl (7.0-11.0); RED CELL DISTRIBUTION WIDTH 16.5 % (11.5-14.5); WHITE BLOOD COUNT 9.5 10^3/ul (4.5-11.0)
[2016-11-19 07:26] LABS: ALB/GLOB RATIO 1.1 (1.1-1.8); ALKALINE PHOSPHATASE 64 U/L (38-133); ALT/SGPT 15 U/L (7-56); AST/SGOT 25 U/L (15-39); BILIRUBIN,TOTAL 0.4 mg/dL (0.2-1.3); BLOOD UREA NITROGEN 20 mg/dL (7-21); CALCIUM 7.9 mg/dL (8.4-10.5); CARBON DIOXIDE 20 mmol/L (21-33); CHLORIDE 114 mmol/L (98-107); GFR AFRICAN-AMERICAN > 60; GLUCOSE,RANDOM 92 mg/dL (70-110); POTASSIUM 3.6 mmol/L (3.6-5.0); SODIUM 141 mmol/L (132-148); TOTAL PROTEIN 5.3 g/dL (5.8-8.3)
--- NOTE | 2016-11-19 07:51 | CP.PCM.PN ---
<Lucie Osborne - Last Filed: 11/19/16 11:09> Subjective - Date & Time of Evaluation Date of Evaluation: 11/19/16 Time of Evaluation: 07:39 - Subjective Subjective: ICU Progress Note Patient seen and examined at bedside. There were no acute overnight events. Patient denies having any pain. She denies n/v/d, fever, chills, numbness/ tingling, CP or SOB. She says she would like to get out of bed today. Objective - Vital Signs/Intake and Output Vital Signs (last 24 hours): Temp Pulse Resp BP Pulse Ox 97.9 F 82 16 117/61 100 11/19/16 04:00 11/19/16 07:27 11/19/16 06:50 11/19/16 06:00 11/19/16 06:50 Intake and Output: 11/19/16 11/19/16 06:59 18:59 Intake Total 1310 Balance 1310 - Medications Medications: Current Medications Alprazolam (Xanax) 0.25 mg PO BID PRN PRN Reason: Anxiety Stop: 11/19/16 08:11 Last Admin: 11/18/16 22:27 Dose: 0.25 mg Atorvastatin Calcium (Lipitor) 20 mg PO HS [facility] Last Admin: 11/15/16 21:16 Dose: 20 mg Diltiazem HCl (Cardizem Cd) 240 mg PO DAILY [facility] Last Admin: 11/16/16 11:44 Dose: Not Given Furosemide (Lasix) 20 mg PO DAILY [facility] Last Admin: 11/16/16 10:07 Dose: 20 mg Sodium Chloride (Sodium Chloride 0.9%) 1,000 mls @ 100 mls/hr IV .Q10H [facility] Last Admin: 11/18/16 22:23 Dose: 100 mls/hr diltiaZEM IVPB 100mg in NS (Cardizem 100mg In Ns) 100 mls @ 10 mls/hr IV .Q10H PRN; Protocol; 10 MG/HR PRN Reason: TITRATE PER MD ORDER Last Titration: 11/18/16 18:16 Dose: 5 mg/hr, 5 mls/hr Metoprolol Succinate (Toprol Xl) 50 mg PO DAILY [facility] Last Admin: 11/16/16 10:07 Dose: 50 mg Morphine Sulfate (Morphine) 0.5 mg IVP Q4H PRN PRN Reason: Pain, severe (8-10) Ondansetron HCl (Zofran Inj) 8 mg IVP Q6H PRN PRN Reason: Nausea/Vomiting Last Admin: 11/17/16 02:53 Dose: 8 mg Polyethylene Glycol (Miralax) 17 gm PO DAILY [facility] Last Admin: 11/16/16 13:43 Dose: 17 gm Ramipril (Altace) 5 mg PO DAILY [facility] Last Admin: 11/16/16 10:06 Dose: 5 mg Simethicone (Mylicon Liq) 40 mg PO QID [facility] Last Admin: 11/16/16 15:48 Dose: Not Given - Labs Labs: 11/18/16 05:45 11/19/16 06:00 PT 11.3 Seconds (9.9-11.8) 11/18/16 05:45 INR 1.05 (0.93-1.08) 11/18/16 05:45 APTT 25.0 Seconds (23.7-30.8) 11/16/16 14:30 - Constitutional Appears: No Acute Distress - Head Exam Head Exam: ATRAUMATIC, NORMAL INSPECTION, NORMOCEPHALIC - Eye Exam Eye Exam: Normal appearance, PERRL Pupil Exam: NORMAL ACCOMODATION, PERRL - ENT Exam ENT Exam: Mucous Membranes Moist - Respiratory Exam Respiratory Exam: Clear to Ausculation Bilateral, NORMAL BREATHING PATTERN. absent: Rales, Rhonchi, Wheezes - Cardiovascular Exam Cardiovascular Exam: Tachycardia, REGULAR RHYTHM, +S1, +S2. absent: Gallop, Rubs, Murmur - GI/Abdominal Exam GI & Abdominal Exam: Soft, Normal Bowel Sounds. absent: Rigid, Tenderness, Mass , Rebound - Extremities Exam Extremities Exam: Normal Inspection. absent: Calf Tenderness, Pedal Edema - Neurological Exam Neurological Exam: Alert, Awake, CN II-XII Intact, Oriented x3 - Psychiatric Exam Psychiatric exam: Normal Affect, Normal Mood - Skin Skin Exam: Dry, Intact, Normal Color, Warm Assessment and Plan - Assessment and Plan (Free Text) Assessment: This is an 86Y F with PMH COPD, HTN, sinusitis, CAD, prothestic mitral valve, A.fib who was originally admitted for leg edema and A.fib. She was not on anticoagulation at home. She was started on Eliquis during this stay. [employer] MAN was called for syncopal episode and hematemesis. Patient was transferred to ICU for further monitoring. Plan is for EGD today. Plan: Neuro: Pt is A&O x 3 Continue to maintain normothermia CV: Tachycardic- on cardizem drip- will titrate to Po cardizem Restart oral meds today If continues to be tachy will add Amio 150ml bolus and then possibly PO amiodarone Cardio consulted- recs appreciated Pulm: Maintain spO2>90% on NC 2L GI: GI consulted- recs appreciated Barretts esophagitis with esophaeal ulcers Continue Protonix drip- will need high dose PPI as outpatient Zofran prn nausea Clear liquid diet-advance diet as tolerated Monitor I&O Nephro: Continue to maintain euvolemia Monitor electrolytes and replace as needed Heme: Hgb stable but trending down- will repeat CBC at 4pm and transfuse 1U if decreasing. Will transfuse if <7 No signs of overt bleeding ID: no leukocytosis, afebrile Continue to monitor Endo: Will maintain euglycemia GI ppx: PTX drip DVT ppx: SCDs Dispo: Will consider transfer if Hgb and HR stable. Case seen, discussed and reviewed with attending. Dayanara Osborne PGY1 <Damien VERA,Renate H - Last Filed: 11/19/16 15:00> Objective - Vital Signs/Intake and Output Vital Signs (last 24 hours): Temp Pulse Resp BP Pulse Ox 98.1 F 68 22 104/43 L 81 L 11/19/16 08:06 11/19/16 14:20 11/19/16 14:20 11/19/16 14:09 11/19/16 14:20 Intake and Output: 11/19/16 11/19/16 06:59 18:59 Intake Total 1310 Balance 1310 - Medications Medications: Current Medications Atorvastatin Calcium (Lipitor) 20 mg PO HS [facility] Last Admin: 11/15/16 21:16 Dose: 20 mg Diltiazem HCl (Cardizem Cd) 240 mg PO DAILY [facility] Last Admin: 11/19/16 10:56 Dose: 240 mg Furosemide (Lasix) 20 mg PO DAILY [facility] Last Admin: 11/19/16 10:55 Dose: 20 mg diltiaZEM IVPB 100mg in NS (Cardizem 100mg In Ns) 100 mls @ 10 mls/hr IV .Q10H PRN; Protocol; 10 MG/HR PRN Reason: TITRATE PER MD ORDER Last Titration: 11/18/16 18:16 Dose: 5 mg/hr, 5 mls/hr Metoprolol Succinate (Toprol Xl) 50 mg PO DAILY [facility] Last Admin: 11/19/16 10:56 Dose: 50 mg Morphine Sulfate (Morphine) 0.5 mg IVP Q4H PRN PRN Reason: Pain, severe (8-10) Ondansetron HCl (Zofran Inj) 8 mg IVP Q6H PRN PRN Reason: Nausea/Vomiting Last Admin: 11/17/16 02:53 Dose: 8 mg Pantoprazole Sodium (Protonix Inj) 40 mg IVP Q12H [facility] Polyethylene Glycol (Miralax) 17 gm PO DAILY [facility] Last Admin: 11/16/16 13:43 Dose: 17 gm Ramipril (Altace) 5 mg PO DAILY [facility] Last Admin: 11/19/16 10:56 Dose: 5 mg Simethicone (Mylicon Liq) 40 mg PO QID [facility] Last Admin: 11/16/16 15:48 Dose: Not Given Sucralfate (Carafate Oral Susp) 1 gm PO 0600,1600 [facility] - Labs Labs: 11/19/16 06:00 11/19/16 06:00 PT 11.3 Seconds (9.9-11.8) 11/18/16 05:45 INR 1.05 (0.93-1.08) 11/18/16 05:45 APTT 25.0 Seconds (23.7-30.8) 11/16/16 14:30 Attending/Attestation - Attestation I have personally seen and examined this patient.: Yes I have fully participated in the care of the patient.: Yes I have reviewed all pertinent clinical information, including history, physical exam and plan: Yes Notes (Text): 11/19/16 14:57 86 y/o F w/ A FIB and UGI Bleed S/P endoscopy and found to have multiple esophageal ulcers. malignancy work up to be done . ct abd/pelvis w/ contrast HGB < 7, w/ mild drop overnight w/o bleeding A fib difficult to control. On P.O cardizem and P.O metoprolol. Cardizem drip weaning off. Will give amiodarone bolus and possibly P.O amio if HR > 130. dvt p SCD. 11/19/16 14:59
--- NOTE | 2016-11-19 08:26 | CP.PCM.PN ---
Subjective - Date & Time of Evaluation Date of Evaluation: 11/19/16 Time of Evaluation: 07:00 - Subjective Subjective: Stable in ICU s/p GIB. No chest pain, sob. S/P 3 units RBCs V/S noted. AF with moderate rates PE: Lungs: rhonchi Cor.: irreg., S1S2 Abd.: soft Ext: no edema Neuro.: alert Labs noted: H/H 7.6/24.4, K+= 3.6 Bleeding scan: Neg. EGD (vebal): Esoph ulcers, Mckeon's Esophagus, etc. No active bleeding seen. Objective - Vital Signs/Intake and Output Vital Signs (last 24 hours): Temp Pulse Resp BP Pulse Ox 98.1 F 110 H 20 154/81 H 91 L 11/19/16 08:06 11/19/16 08:06 11/19/16 08:06 11/19/16 08:06 11/19/16 08:06 Intake and Output: 11/19/16 11/19/16 06:59 18:59 Intake Total 1310 Balance 1310 - Medications Medications: Current Medications Atorvastatin Calcium (Lipitor) 20 mg PO HS [facility] Last Admin: 11/15/16 21:16 Dose: 20 mg Diltiazem HCl (Cardizem Cd) 240 mg PO DAILY [facility] Last Admin: 11/16/16 11:44 Dose: Not Given Furosemide (Lasix) 20 mg PO DAILY [facility] Last Admin: 11/16/16 10:07 Dose: 20 mg Sodium Chloride (Sodium Chloride 0.9%) 1,000 mls @ 100 mls/hr IV .Q10H [facility] Last Admin: 11/18/16 22:23 Dose: 100 mls/hr diltiaZEM IVPB 100mg in NS (Cardizem 100mg In Ns) 100 mls @ 10 mls/hr IV .Q10H PRN; Protocol; 10 MG/HR PRN Reason: TITRATE PER MD ORDER Last Titration: 11/18/16 18:16 Dose: 5 mg/hr, 5 mls/hr Metoprolol Succinate (Toprol Xl) 50 mg PO DAILY [facility] Last Admin: 11/16/16 10:07 Dose: 50 mg Morphine Sulfate (Morphine) 0.5 mg IVP Q4H PRN PRN Reason: Pain, severe (8-10) Ondansetron HCl (Zofran Inj) 8 mg IVP Q6H PRN PRN Reason: Nausea/Vomiting Last Admin: 11/17/16 02:53 Dose: 8 mg Polyethylene Glycol (Miralax) 17 gm PO DAILY [facility] Last Admin: 11/16/16 13:43 Dose: 17 gm Ramipril (Altace) 5 mg PO DAILY [facility] Last Admin: 11/16/16 10:06 Dose: 5 mg Simethicone (Mylicon Liq) 40 mg PO QID [facility] Last Admin: 11/16/16 15:48 Dose: Not Given - Labs Labs: 11/19/16 06:00 11/19/16 06:00 PT 11.3 Seconds (9.9-11.8) 11/18/16 05:45 INR 1.05 (0.93-1.08) 11/18/16 05:45 APTT 25.0 Seconds (23.7-30.8) 11/16/16 14:30 Assessment and Plan - Assessment and Plan (Free Text) Assessment: Acute GIB while on Eliquis for AF. Esophageal ulcers and Mkceon's Esophagus AF with RVR CAD/CABG/MVR/PCI COPD/Bronchitis/Sinusitis HBP Cataract surgery Echo: mod. MR and mild/mod PH Plan: IV Diltiazem > PO and IV metoprolol > PO EGD verbal noted: await final report As per GI and Intensivists. Monitor: labs, H/H, I/O, sats. etc. Transfuse as per GI/Intensivists/Dr. Cheatham. OumarOB to chair as germain.
[2016-11-19] MEDS: diltiaZEM 240 mg/24 Hours CD Cap PO SCH ×2 (09:00→10:56)
--- NOTE | 2016-11-19 10:12 | PN ---
DATE: 11/19/2016 SUBJECTIVE: The patient has no complaints of any chest pain or shortness of breath. She says she is feeling better. She is happy that she is able to get a liquid diet. PHYSICAL EXAMINATION: VITAL SIGNS: Temperature is 98.1, pulse of 110, blood pressure 154/81, respirations 20. GENERAL: The patient is comfortable, in no acute distress. HEENT: Anicteric sclerae. Moist mucosa. NECK: No JVD or adenopathy. CARDIAC: S1/S2. No murmurs. No rubs. Regular. RESPIRATORY: Clear to auscultation bilaterally. No wheezes, rales, or rhonchi. Good air entry. ABDOMEN: Bowel sounds are positive, soft, nontender, and nondistended. EXTREMITIES: No edema. Has 1+ pulses. LABORATORY DATA: Hemoglobin is 7.6, white count of 9.5. ASSESSMENT: 1. Acute anemia secondary to blood loss secondary to gastrointestinal bleed. 2. Atrial fibrillation, not on anticoagulation secondary to bleeding. 3. Dyslipidemia. 4. Coronary artery disease. 5. Hypertension. 6. Chronic obstructive pulmonary disease. PLAN: The patient is currently on Cardizem, is also on Lasix daily. She is on Lipitor for dyslipide lisa, is receiving IV fluids with normal saline. I will discontinue the patient's IV fluids at this p oint. She is going to have continued followup with a CBC. She is on a liquid diet. Wilfred Cheatham MD cc: [id number] TT: 11/19/2016 09:26:13 Confirmation # [id number] Dictation # [id number] tn
--- NOTE | 2016-11-19 10:12 | ENDO ---
PROCEDURE DATE: 11/18/2016 This patient underwent, this 86-year-old patient with GI bleeding, had an upper GI endoscopy done. Informed consent was obtained. The patient's upper GI endoscopy revealed long segment Mckeon's esophagus measuring C11M13. His long segment Mckeon's esophagus measuring C11M13 was noticed. There were multiple ulcers noticed in the esophagus. There is 1 ulcer measuring about 1 cm with a pigmented spot was seen. Other ulcers were all clean based. There was no blood noticed. The patient also had a 5 cm hiatus hernia. The stomach had diminutive polyps in the fundus and body area. There is no other bleeding obvious source noticed. Duodenum was clear. 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 Multiple esophageal ulcerations, 1 ulcer with a pigmented spot. Would recommend: High dose PPI. The patient, close followup of the hemoglobin and hematocrit. We will start the patient on clear liquid diet. Thank you very much for allowing us to participate in the care of patient. Continue the ICU monitoring for at least another 24 hours. Lay Owusu MD cc: [phone] TT: 11/18/2016 11:28:35 en MTDD
[2016-11-19] MEDS: Metoprolol Succinate 50 mg XL Tab PO SCH (10:56)
[2016-11-19] MEDS ORDERED: Amiodarone 150 mg/D5W 100 ml 150 MG/100 ML BAG IVPB ONE (11:06)
--- NOTE | 2016-11-19 14:24 | PN ---
DATE: 11/19/2016 Seen and examined at the bedside earlier this morning. The patient had an EGD yesterday, found to rebollar ve multiple esophageal ulcerations and a small polyp. The patient denies nausea, vomiting. No hemat emesis or abdominal pain. She expresses feeling hungry. No reports of any bleeding. VITAL SIGNS: Temperature is 98.1, blood pressure is 154/81, pulse 110, respirations 20. LABORATORY DATA: WBC 9.5, her hemoglobin is 7.6, hematocrit 24.4, platelets of 143. Sodium 141, K i s 3.6, BUN is 20 and creatinine is 0.7. LFTs are within normal limits. PHYSICAL EXAMINATION: HEENT: Sclerae are anicteric. NECK: Supple. CARDIAC: S1, S2. LUNGS: Sounds are clear. ABDOMEN: With bowel sounds, soft, nontender. No rebound or guarding. EXTREMITIES: No edema. NEUROLOGIC: Awake, alert, and oriented. ASSESSMENT: Acute anemia secondary to gastrointestinal bleed, status post endoscopy, found to have m ultiple ulcerations, gastric polyp, atrial fibrillation, anticoagulant currently on hold secondary to gastrointestinal bleed, history of coronary artery disease, hypertension, chronic obstructive pulmon lacey disease. PLAN: Advance diet to full liquids. Continue to monitor for any bleeding. The patient is for repea t CBC at 4:00 this afternoon. Transfuse as necessary. The patient was seen and case discussed with Dr. Owusu. Spoke to ICU resident, . Kita BUENO cc: [id number] TT: 11/19/2016 14:23:19 Confirmation # [id number] Dictation # [id number] jose
[2016-11-19 16:23] LABS: MEAN CORPUSCULAR HEMOGLOBIN 28.6 pg (25.0-35.0); MEAN CORPUSCULAR HGB CONC 31.4 g/dl (31.0-37.0); MEAN PLATELET VOLUME 9.9 fl (7.0-11.0); RED CELL DISTRIBUTION WIDTH 16.2 % (11.5-14.5); WHITE BLOOD COUNT 9.7 10^3/ul (4.5-11.0)
[2016-11-19 16:41] LABS: HEMATOCRIT 22.3 % (36.0-48.0)
[2016-11-19] MEDS: Sucralfate 1 gm/10 ml Oral Susp UD PO SCH (18:06)
[2016-11-20 05:49] LABS: HEMATOCRIT 27.4 % (36.0-48.0); MEAN CELL VOLUME 90.7 fL (80.0-105.0); MEAN CORPUSCULAR HEMOGLOBIN 29.5 pg (25.0-35.0); MEAN CORPUSCULAR HGB CONC 32.5 g/dl (31.0-37.0); MEAN PLATELET VOLUME 9.6 fl (7.0-11.0); RED CELL DISTRIBUTION WIDTH 15.7 % (11.5-14.5); WHITE BLOOD COUNT 8.4 10^3/ul (4.5-11.0)
[2016-11-20 05:55] LABS: ALB/GLOB RATIO 1.1 (1.1-1.8); ALKALINE PHOSPHATASE 62 U/L (38-133); ALT/SGPT 18 U/L (7-56); AST/SGOT 18 U/L (15-39); BILIRUBIN,TOTAL 0.6 mg/dL (0.2-1.3); BLOOD UREA NITROGEN 12 mg/dL (7-21); CALCIUM 7.8 mg/dL (8.4-10.5); CARBON DIOXIDE 25 mmol/L (21-33); CHLORIDE 108 mmol/L (98-107); GFR AFRICAN-AMERICAN > 60; GLUCOSE,RANDOM 90 mg/dL (70-110); POTASSIUM 3.1 mmol/L (3.6-5.0); SODIUM 138 mmol/L (132-148); TOTAL PROTEIN 4.8 g/dL (5.8-8.3)
[2016-11-20] MEDS: Sucralfate 1 gm/10 ml Oral Susp UD PO SCH ×2 (06:40→16:44)
--- NOTE | 2016-11-20 07:48 | PN ---
DATE: 11/19/2016 ADDENDUM: This is an addendum to the GI progress report dictated by Kita Mathis. The patient did have drop in blood count with hemoglobin of 7.0. Received a unit of transfusion. Th e patient does have large multiple ulcers with the background of Mckeon's esophagus of the esophage al area. The patient has poor dentition, but more than likely cause for the ulceration could be the food stasis. The patient mentioned to me today that she eats fast and also she does not have teeth a nd most times, she does not chew well. PHYSICAL EXAMINATION: ABDOMEN: Soft. There is no mass palpable. No tenderness. IMPRESSION: 1. Continue the PPI. 2. We will continue to follow up the hemoglobin and hematocrit, continue the proton pump inhibitor a nd also added on Carafate now. We will follow up. Lay Owusu MD cc: [phone] TT: 11/20/2016 07:48:10 Confirmation # [id number] Dictation # [id number] tn
--- NOTE | 2016-11-20 08:04 | CP.PCM.PN ---
Subjective - Date & Time of Evaluation Date of Evaluation: 11/20/16 Time of Evaluation: 07:00 - Subjective Subjective: Stable in ICU s/p GIB. No chest pain, sob. S/P transfusion yesterday. She was given IV amiod. bolus and a dilt drip yesterday ( I was not notified of these interventions). V/S noted. AF with moderate rates PE: Lungs: rhonchi Cor.: irreg., S1S2 Abd.: soft Ext: no edema Neuro.: alert Labs noted: H/H 11.5/27.4, Pl Ct [id number], K+= 3.1 Bleeding scan: Neg. EGD (vebal): Esoph ulcers, Mckeon's Esophagus, etc. No active bleeding seen. Objective - Vital Signs/Intake and Output Vital Signs (last 24 hours): Temp Pulse Resp BP Pulse Ox 98.6 F 99 H 23 130/70 99 11/20/16 07:39 11/20/16 07:39 11/20/16 07:39 11/20/16 07:32 11/20/16 07:39 Intake and Output: 11/20/16 11/20/16 06:59 18:59 Intake Total 415 Output Total 400 Balance 15 - Medications Medications: Current Medications Atorvastatin Calcium (Lipitor) 20 mg PO HS [facility] Last Admin: 11/19/16 23:02 Dose: 20 mg Diltiazem HCl (Cardizem Cd) 240 mg PO DAILY [facility] Last Admin: 11/19/16 10:56 Dose: 240 mg Furosemide (Lasix) 20 mg PO DAILY [facility] Last Admin: 11/19/16 10:55 Dose: 20 mg diltiaZEM IVPB 100mg in NS (Cardizem 100mg In Ns) 100 mls @ 10 mls/hr IV .Q10H PRN; Protocol; 10 MG/HR PRN Reason: TITRATE PER MD ORDER Last Titration: 11/18/16 18:16 Dose: 5 mg/hr, 5 mls/hr Metoprolol Succinate (Toprol Xl) 50 mg PO DAILY [facility] Last Admin: 11/19/16 10:56 Dose: 50 mg Morphine Sulfate (Morphine) 0.5 mg IVP Q4H PRN PRN Reason: Pain, severe (8-10) Ondansetron HCl (Zofran Inj) 8 mg IVP Q6H PRN PRN Reason: Nausea/Vomiting Last Admin: 11/17/16 02:53 Dose: 8 mg Pantoprazole Sodium (Protonix Inj) 40 mg IVP Q12H [facility] Last Admin: 11/20/16 01:56 Dose: 40 mg Polyethylene Glycol (Miralax) 17 gm PO DAILY [facility] Last Admin: 11/16/16 13:43 Dose: 17 gm Ramipril (Altace) 5 mg PO DAILY [facility] Last Admin: 11/19/16 10:56 Dose: 5 mg Simethicone (Mylicon Liq) 40 mg PO QID [facility] Last Admin: 11/16/16 15:48 Dose: Not Given Sucralfate (Carafate Oral Susp) 1 gm PO 0600,1600 [facility] Last Admin: 11/20/16 06:40 Dose: 1 gm - Labs Labs: 11/20/16 05:30 11/20/16 05:30 PT 11.3 Seconds (9.9-11.8) 11/18/16 05:45 INR 1.05 (0.93-1.08) 11/18/16 05:45 APTT 25.0 Seconds (23.7-30.8) 11/16/16 14:30 Assessment and Plan - Assessment and Plan (Free Text) Assessment: Acute GIB while on Eliquis for AF. Esophageal ulcers and Mckeon's Esophagus AF with RVR CAD/CABG/MVR/PCI COPD/Bronchitis/Sinusitis HBP Cataract surgery Echo: mod. MR and mild/mod PH Plan: IV and PO diltiazem and PO metoprolol > PO Replace K+ As per GI and Intensivists. Monitor: labs, H/H, I/O, sats. etc. OOB to chair as germain.
[2016-11-20] MEDS ORDERED: Potassium Chloride 20 mEq 100 ML IV SCH (08:15)
--- NOTE | 2016-11-20 09:01 | PN ---
DATE: 11/20/2016 SUBJECTIVE: The patient is resting in bed with O2 via nasal cannula and in no respiratory distress t his morning. The patient has no complaints of chest pain or abdominal pain. No nausea, vomiting and is tolerating a liquid diet. PHYSICAL EXAMINATION: VITAL SIGNS: The temperature is 98.5, pulse is 91, respirations are 25, and BP is 131/56. SKIN: Warm and dry. HEAD: Atraumatic, normocephalic. EYES: Reactive to light. EARS, NOSE AND THROAT: Seem to be within normal limits. NECK: Supple. No JVD, no thyroid enlargement, no lymph nodes. HEART: Has regular rate and rhythm, normal S1, S2. LUNGS: Reveal good breath sounds bilaterally. ABDOMEN: Soft, decreased bowel sounds. GENITALIA AND RECTAL: Deferred. MUSCULOSKELETAL: No joint deformities. EXTREMITIES: Reveal no significant edema. NEUROLOGIC: The patient seemed to be grossly intact. LABORATORY DATA: Her white count is 8.4, hemoglobin is 8.9, hematocrit 27.4 with platelets of 116,00 0. Her sodium is 138, potassium 3.1, chloride 108, CO2 of 25 with a BUN of 12, creatinine of 0.8, an d glucose of 90. IMPRESSION: The patient has anemia that is secondary to gastrointestinal bleed. Has atrial fibrilla tion and anticoagulation has been on hold. The patient has a history of hyperlipidemia, coronary art nadeem disease, hypertension and chronic obstructive pulmonary disease. PLAN: We will continue with Cardizem p.o. The patient is getting Lasix and Lipitor. She is on IV f luids and monitoring her CBC. The patient will continue with liquid diet and we will follow closely and treat aggressively along with the other consultants and the primary care doctor. Royer Monson MD cc: [id number] TT: 11/20/2016 09:00:16 Confirmation # [id number] Dictation # [id number] [facility]
[2016-11-20] MEDS: Metoprolol Succinate 50 mg XL Tab PO SCH (09:03)
[2016-11-20] MEDS: diltiaZEM 240 mg/24 Hours CD Cap PO SCH (09:05)
[2016-11-20] MEDS ORDERED: Potassium Chloride 20 mEq ER Tab PO STA (09:39)
[2016-11-20 16:06] LABS: ADD MANUAL DIFF? NO
[2016-11-20 16:11] LABS: BASO # 0.04 K/mm3 (0.0-2.0); BASO % 0.4 % (0.0-3.0); EOS # 0.3 (0.0-0.7); EOS % 2.9 % (1.5-5.0); GRAN # 6.73 (1.4-6.5); GRAN % 70.8 % (50.0-68.0); LYMPH # 1.3 (1.2-3.4); LYMPH % 13.4 % (22.0-35.0); MEAN CELL VOLUME 91.2 fL (80.0-105.0); MEAN CORPUSCULAR HEMOGLOBIN 29.6 pg (25.0-35.0); MEAN CORPUSCULAR HGB CONC 32.5 g/dl (31.0-37.0); MEAN PLATELET VOLUME 9.5 fl (7.0-11.0); MONO # 1.2 (0.1-0.6); MONO % 12.5 % (1.0-6.0); PLATELET COUNT 146 10^3/uL (120.0-450.0); RED CELL DISTRIBUTION WIDTH 15.8 % (11.5-14.5); WHITE BLOOD COUNT 9.5 10^3/ul (4.5-11.0)
[2016-11-20 16:31] LABS: BLOOD UREA NITROGEN 11 mg/dL (7-21); CARBON DIOXIDE 25 mmol/L (21-33); CHLORIDE 103 mmol/L (98-107); GFR AFRICAN-AMERICAN > 60; GLUCOSE,RANDOM 93 mg/dL (70-110); MAGNESIUM 1.5 mg/dL (1.7-2.2); POTASSIUM 3.3 mmol/L (3.6-5.0); SODIUM 134 mmol/L (132-148)
[2016-11-20] MEDS ORDERED: Potassium Chloride 20 mEq ER Tab PO ONE (20:00)
[2016-11-21 05:26] LABS: ADD MANUAL DIFF? NO
[2016-11-21 05:38] LABS: BASO # 0.03 K/mm3 (0.0-2.0); BASO % 0.4 % (0.0-3.0); EOS # 0.3 (0.0-0.7); EOS % 3.9 % (1.5-5.0); GRAN # 4.88 (1.4-6.5); GRAN % 68.6 % (50.0-68.0); HEMATOCRIT 27.2 % (36.0-48.0); MEAN CELL VOLUME 90.7 fL (80.0-105.0); MEAN PLATELET VOLUME 9.8 fl (7.0-11.0); MONO # 0.9 (0.1-0.6); MONO % 13.1 % (1.0-6.0); PLATELET COUNT 128 10^3/uL (120.0-450.0); RED CELL DISTRIBUTION WIDTH 15.8 % (11.5-14.5); WHITE BLOOD COUNT 7.1 10^3/ul (4.5-11.0)
[2016-11-21 05:44] LABS: BLOOD UREA NITROGEN 10 mg/dL (7-21); CALCIUM 8.1 mg/dL (8.4-10.5); CARBON DIOXIDE 29 mmol/L (21-33); CHLORIDE 103 mmol/L (98-107); GFR AFRICAN-AMERICAN > 60; GLUCOSE,RANDOM 90 mg/dL (70-110); MAGNESIUM 1.5 mg/dL (1.7-2.2); SODIUM 136 mmol/L (132-148)
[2016-11-21] MEDS: Sucralfate 1 gm/10 ml Oral Susp UD PO SCH ×2 (05:48→15:26)
--- NOTE | 2016-11-21 07:35 | CP.PCM.PN ---
Subjective - Date & Time of Evaluation Date of Evaluation: 11/21/16 Time of Evaluation: 07:00 - Subjective Subjective: Stable in ICU s/p GIB. No chest pain, sob. Weak. V/S noted. AF with moderate rates PE: Lungs: rhonchi Cor.: irreg., S1S2 Abd.: soft Ext: no edema Neuro.: alert Labs noted: H/H 8.7/27.2 K+= 4.0, Mg.++= 1.5 Bleeding scan: Neg. EGD (vebal): Esoph ulcers, Mckeon's Esophagus, etc. No active bleeding seen. Objective - Vital Signs/Intake and Output Vital Signs (last 24 hours): Temp Pulse Resp BP Pulse Ox 98.1 F 72 27 H 116/44 L 100 11/21/16 04:00 11/21/16 06:00 11/21/16 05:55 11/21/16 05:00 11/21/16 04:00 Intake and Output: 11/21/16 11/21/16 06:59 18:59 Intake Total 125 Output Total 400 Balance -275 - Medications Medications: Current Medications Atorvastatin Calcium (Lipitor) 20 mg PO [facility] Last Admin: 11/20/16 21:26 Dose: 20 mg Diltiazem HCl (Cardizem Cd) 240 mg PO DAILY [facility] Last Admin: 11/20/16 09:05 Dose: 240 mg Furosemide (Lasix) 20 mg PO DAILY [facility] Last Admin: 11/20/16 09:03 Dose: 20 mg diltiaZEM IVPB 100mg in NS (Cardizem 100mg In Ns) 100 mls @ 10 mls/hr IV .Q10H PRN; Protocol; 10 MG/HR PRN Reason: TITRATE PER MD ORDER Last Titration: 11/18/16 18:16 Dose: 5 mg/hr, 5 mls/hr Magnesium Oxide (Mag-Ox) 400 mg PO ONCE ONE Stop: 11/21/16 20:01 Metoprolol Succinate (Toprol Xl) 50 mg PO DAILY [facility] Last Admin: 11/20/16 09:03 Dose: 50 mg Morphine Sulfate (Morphine) 0.5 mg IVP Q4H PRN PRN Reason: Pain, severe (8-10) Ondansetron HCl (Zofran Inj) 8 mg IVP Q6H PRN PRN Reason: Nausea/Vomiting Last Admin: 11/17/16 02:53 Dose: 8 mg Pantoprazole Sodium (Protonix Inj) 40 mg IVP Q12H [facility] Last Admin: 11/21/16 02:25 Dose: 40 mg Polyethylene Glycol (Miralax) 17 gm PO DAILY [facility] Last Admin: 11/16/16 13:43 Dose: 17 gm Ramipril (Altace) 5 mg PO DAILY [facility] Last Admin: 11/20/16 09:02 Dose: 5 mg Simethicone (Mylicon Liq) 40 mg PO QID [facility] Last Admin: 11/16/16 15:48 Dose: Not Given Sucralfate (Carafate Oral Susp) 1 gm PO 0600,1600 [facility] Last Admin: 11/21/16 05:48 Dose: 1 gm - Labs Labs: 11/21/16 05:15 11/21/16 05:15 PT 11.3 Seconds (9.9-11.8) 11/18/16 05:45 INR 1.05 (0.93-1.08) 11/18/16 05:45 APTT 25.0 Seconds (23.7-30.8) 11/16/16 14:30 Assessment and Plan - Assessment and Plan (Free Text) Assessment: Acute GIB while on Eliquis for AF. Esophageal ulcers and Mckeon's Esophagus AF with RVR CAD/CABG/MVR/PCI COPD/Bronchitis/Sinusitis HBP Cataract surgery Echo: mod. MR and mild/mod PH Plan: PO diltiazem and PO metoprolol Replace Mg.++ and K+ As per GI and Intensivists, Dr. Monson Monitor: labs, H/H, I/O, sats. etc. OOB to chair as germain.
--- NOTE | 2016-11-21 07:38 | PN ---
DATE: 11/21/2016 This patient was seen and evaluated earlier. Discussed with the resident. The patient has been on f ull liquid diet, tolerating. No further melena. No abdominal pain. PHYSICAL EXAMINATION: VITAL SIGNS: Temperature is 98.3, pulse 105, blood pressure is 126/69. HEENT: Atraumatic, anicteric. NECK: Supple. HEART: S1, S2 heard. LUNGS: Bilateral air entry present. ABDOMEN: Soft. There was no tenderness. EXTREMITIES: No edema, no cyanosis. LABORATORY DATA: Hemoglobin 9.1, hematocrit 28, WBCs 11. BUN 11, creatinine 0.8, potassium 3.3, fátima ng replaced. This patient received a unit of packed RBC yesterday. The patient is on twice a day Protonix and als o on Carafate. We will continue that. History of atrial fibrillation, controlled rate. The patient was on Eliquis, now off the anticoagulation. History of long segment Mckeon's esophagus measuring [id number], multiple ulcers in the Mckeon's area. The likely cause of ulceration could be related to, i s a food impaction. The patient has no teeth and she has been having at times difficulty with sw[employer] wing. The reasonable thing for the patient to eat is pureed food or extremely soft diet or use the d entures and chew well. The patient would need a repeat endoscopy in about 6 weeks, 4-6 weeks' time t o evaluate the healing of the ulcer and also biopsy followup. This admission, no biopsy was done. I f the patient has no active bleeding, the diet can be advanced to pureed diet. Thank you very much for allowing us to participate in the care of the patient. Lay Owusu MD cc: [id number] TT: 11/21/2016 07:37:12 Confirmation # [id number] Dictation # [id number] en
--- NOTE | 2016-11-21 09:08 | PN ---
DATE: 11/21/2016 SUBJECTIVE: The patient is resting in bed, awake and alert, feeling much better today. She is looki ng forward to sitting in the chair a little later. Blood pressure is under control and patient is on nasal cannula with no respiratory distress. She has no abdominal pain, no fever, chills, nausea, vo miting. No chest pain and no diarrhea. The patient is scheduled for transfer to telemetry if PMD ag jeffery. PHYSICAL EXAMINATION: VITAL SIGNS: Temperature is 98.1, pulse is 71, respirations are 20, and BP is 124/70. SKIN: Warm and dry. HEAD: Atraumatic, normocephalic. EYES: Reactive to light. EARS, NOSE AND THROAT: Seem to be within normal limits. NECK: Supple. No JVD, no thyroid enlargement, no lymph nodes. HEART: Has regular rate and rhythm. Normal S1, S2. LUNGS: Reveal good breath sounds bilaterally. ABDOMEN: Soft, decreased bowel sounds. GENITALIA AND RECTAL: Deferred. MUSCULOSKELETAL: No joint deformities. EXTREMITIES: Reveal no significant lower extremity edema. NEUROLOGIC: She seemed to be grossly intact. LABORATORIES: Her white count is 7.1, hemoglobin is 8.7, hematocrit 27.2 with platelets of 128,000. Sodium is 136, potassium 4.0, chloride 103, CO2 of 29, BUN of 10, creatinine of 0.8, and glucose of 90. The patient's calcium is 8.1 and magnesium is 1.5. IMPRESSION: This patient has anemia secondary to a gastrointestinal bleed. She also has atrial fibr illation. The patient has hyperlipidemia, coronary artery disease, hypertension and chronic obstruct kathryn pulmonary disease. PLAN: We will continue with Cardizem p.o. The patient is on Lasix as well as Lipitor and we will mo nitor CBC. The patient is scheduled for transfer to telemetry and we will continue to follow and jackie at aggressively along with the other consultants and the primary care doctor. Royer Monson MD cc: [id number] TT: 11/21/2016 09:07:48 Confirmation # [id number] Dictation # [id number] en
--- NOTE | 2016-11-21 09:37 | PN ---
DATE: 11/20/2016 HISTORY OF PRESENT ILLNESS: The patient is an 86-year-old female admitted to the hospital with rapid heart rate with atrial fibrillation. She was short of breath. She developed bilateral leg swelling. Also has history of severe anemia. She is off anticoagulation now. Might have occult GI bleed. No obvious history of bleeding per rectum. No fever, no chills, rigors. PAST MEDICAL HISTORY: Hypertension, coronary artery disease, sinusitis, COPD, atrial fibrillation. FAMILY HISTORY: Noncontributory. SOCIAL HISTORY: Does not drink. No smoking. HOME MEDICATIONS: Lipitor, Toprol, Xanax, aspirin, omeprazole ALLERGIES: No known drug allergies. REVIEW OF SYSTEMS: As per HPI. Rest of 12-point review of systems reviewed and negative PHYSICAL EXAMINATION: GENERAL: Comfortable in bed, in no acute distress. VITAL SIGNS: Blood pressure 140/80, oxygen saturation 98% on oxygen by nasal cannula, temperature 98.7, heart rate 100 per minute. HEENT: Pallor positive. NECK: No lymphadenopathy. CHEST: Air entry present, equal bilateral. No added sound. CARDIOVASCULAR: S1, S2 normal. No murmur, no gallop. ABDOMEN: Soft, nontender, no hepatosplenomegaly. EXTREMITIES: No edema. CENTRAL NERVOUS SYSTEM: alert, oriented x3, no sensory motor deficit LABORATORY DATA: White count 7000, initially 11,000 on admission. Hemoglobin 8.7, hematocrit 27.2. Platelet count 128. Sodium 136, potassium 4, creatinine 0.8, calcium 8.1, magnesium 1.5. CURRENT MEDICATIONS: Lipitor 20 mg daily, Cardizem 240 mg daily, Lasix 20 mg daily, magnesium 400 b.i.d., metoprolol 20 mg daily, morphine p.r.n., potassium K-Dur 20 daily, Altace 5 mg daily, Carafate 1 gram b.i.d. ASSESSMENT: 1. Anemia. 2. Occult gastrointestinal bleed. 3. Atrial fibrillation, rapid heart rate. 4. Coronary artery disease. 5. Hypertension. 6. Mckeon's esophagus PLAN: She is currently on Carafate and Protonix. No overt bleed. Hemoglobin low at 8.7. No indication for transfusion now. She is comfortable. Leukocytosis on admission. White count is declining now. She is not on antibiotics. Respiratory status stable. GI following. Cardiology following. GI, cardiology note reviewed. Discussed with the resident . Her diet was advanced to pureed diet. She has history of Mckeon's esophagus with ulceration. Verónica Cherry MD cc: [id number] TT: 11/21/2016 09:36:50 Confirmation # [id number] Dictation # [id number] sn MTDD
[2016-11-21] MEDS: Magnesium Oxide 400 mg Tab UD PO SCH ×2 (09:48→18:13)
[2016-11-21] MEDS: Metoprolol Succinate 50 mg XL Tab PO SCH (09:49)
[2016-11-21] MEDS: Potassium Chloride 20 mEq ER Tab PO SCH (09:49)
[2016-11-21] MEDS: diltiaZEM 240 mg/24 Hours CD Cap PO SCH (10:14)
--- NOTE | 2016-11-21 16:20 | CP.PCM.PN ---
Subjective - Date & Time of Evaluation Date of Evaluation: 11/21/16 Time of Evaluation: 12:00 - Subjective Subjective: DATE: 11/21/2016 SUBJECTIVE: She is sitting comfortably in chair. The patient is an 86-year- old female admitted to the hospital with rapid heart rate with atrial fibrillation.. Also has history of severe anemia. She is off anticoagulation now. Might have occult GI bleed. No obvious history of bleeding per rectum. No fever, no chills, rigors. No events overnight. PAST MEDICAL HISTORY: Hypertension, coronary artery disease, sinusitis, COPD, atrial fibrillation. FAMILY HISTORY: Noncontributory. SOCIAL HISTORY: Does not drink. No smoking. HOME MEDICATIONS: Lipitor, Toprol, Xanax, aspirin, omeprazole ALLERGIES: No known drug allergies. REVIEW OF SYSTEMS: As per HPI. Rest of 12-point review of systems reviewed and negative PHYSICAL EXAMINATION: GENERAL: Comfortable in bed, in no acute distress. VITAL SIGNS: reviewed. HEENT: Pallor positive. NECK: No lymphadenopathy. CHEST: Air entry present, equal bilateral. No added sound. CARDIOVASCULAR: S1, S2 normal. No murmur, no gallop. ABDOMEN: Soft, nontender, no hepatosplenomegaly. EXTREMITIES: No edema. CENTRAL NERVOUS SYSTEM: alert, oriented x3, no sensory motor deficit LABORATORY DATA: White count 7000, initially 11,000 on admission. Hemoglobin 8.7, hematocrit 27.2. Platelet count 128. Sodium 136, potassium 4, creatinine 0.8, calcium 8.1, magnesium 1.5. CURRENT MEDICATIONS: Lipitor 20 mg daily, Cardizem 240 mg daily, Lasix 20 mg daily, magnesium 400 b.i.d., metoprolol 20 mg daily, morphine p.r.n., potassium K-Dur 20 daily, Altace 5 mg daily, Carafate 1 gram b.i.d. ASSESSMENT: 1. Anemia. 2. Occult gastrointestinal bleed. 3. Atrial fibrillation, rapid heart rate. 4. Coronary artery disease. 5. Hypertension. 6. Mckeon's esophagus PLAN: GC improving. HR controlled on current meds. She is currently on Carafate and Protonix. No overt bleed. Hemoglobin low at 8.7. No indication for transfusion now. She is comfortable. Leukocytosis on admission. White count is declining now. She is not on antibiotics. Respiratory status stable. GI following. Cardiology following. GI, cardiology note reviewed. Her diet was advanced to pureed diet. tolerating it. She has history of Mckeon's esophagus with ulceration. She can be transferred to tele floor. Verónica Cherry MD Objective - Vital Signs/Intake and Output Vital Signs (last 24 hours): Temp Pulse Resp BP Pulse Ox 98.8 F 81 23 92/45 L 95 11/21/16 15:46 11/21/16 15:30 11/21/16 15:30 11/21/16 15:00 11/21/16 15:30 Intake and Output: 11/21/16 11/21/16 06:59 18:59 Intake Total 125 850 Output Total 400 601 Balance -275 249 - Medications Medications: Current Medications Atorvastatin Calcium (Lipitor) 20 mg PO HS [facility] Last Admin: 11/20/16 21:26 Dose: 20 mg Diltiazem HCl (Cardizem Cd) 240 mg PO DAILY [facility] Last Admin: 11/21/16 10:14 Dose: 240 mg Furosemide (Lasix) 20 mg PO DAILY [facility] Last Admin: 11/21/16 09:49 Dose: 20 mg Magnesium Oxide (Mag-Ox) 400 mg PO ONCE ONE Stop: 11/21/16 20:01 Magnesium Oxide (Mag-Ox) 400 mg PO BID [facility] Last Admin: 11/21/16 09:48 Dose: 400 mg Metoprolol Succinate (Toprol Xl) 50 mg PO DAILY [facility] Last Admin: 11/21/16 09:49 Dose: 50 mg Morphine Sulfate (Morphine) 0.5 mg IVP Q4H PRN PRN Reason: Pain, severe (8-10) Ondansetron HCl (Zofran Inj) 8 mg IVP Q6H PRN PRN Reason: Nausea/Vomiting Last Admin: 11/17/16 02:53 Dose: 8 mg Pantoprazole Sodium (Protonix Inj) 40 mg IVP Q12H [facility] Last Admin: 11/21/16 15:26 Dose: 40 mg Polyethylene Glycol (Miralax) 17 gm PO DAILY [facility] Last Admin: 11/16/16 13:43 Dose: 17 gm Potassium Chloride (K-Dur 20 Meq Er Tab) 20 meq PO BRK [facility] Last Admin: 11/21/16 09:49 Dose: 20 meq Ramipril (Altace) 5 mg PO DAILY [facility] Last Admin: 11/21/16 09:48 Dose: 5 mg Simethicone (Mylicon Liq) 40 mg PO QID [facility] Last Admin: 11/16/16 15:48 Dose: Not Given Sucralfate (Carafate Oral Susp) 1 gm PO 0600,1600 [facility] Last Admin: 11/21/16 15:26 Dose: 1 gm - Labs Labs: 11/21/16 05:15 11/21/16 05:15 PT 11.3 Seconds (9.9-11.8) 11/18/16 05:45 INR 1.05 (0.93-1.08) 11/18/16 05:45 APTT 25.0 Seconds (23.7-30.8) 11/16/16 14:30
[2016-11-21] MEDS ORDERED: Magnesium Oxide 400 mg Tab UD PO ONE (20:00)
--- NOTE | 2016-11-21 22:30 | CP.PCM.PN ---
Subjective - Date & Time of Evaluation Date of Evaluation: 11/21/16 Time of Evaluation: 22:28 - Subjective Subjective: S:Patient was seen at bedside. She complained of not being able to fall asleep. Has no other complaints. Denies chest pain, abdominal pain, sob. ROS: Negative except as mentioned above. O: Last Vital Signs 3 Temp 98.5 F 11/21/16 17:25 Pulse 109 H 11/21/16 18:00 Resp 19 11/21/16 17:25 BP 110/62 11/21/16 17:25 Pulse Ox 95 11/21/16 17:25 Awake, alert, not in distress. LUNGS: Normal breathing pattern. NEURO: Speech - normal. A: Insomnia. Anxiety. P:Xanax 0.25 mg po stat. Objective - Vital Signs/Intake and Output Vital Signs (last 24 hours): Temp Pulse Resp BP Pulse Ox 98.5 F 109 H 19 110/62 95 11/21/16 17:25 11/21/16 18:00 11/21/16 17:25 11/21/16 17:25 11/21/16 17:25 Intake and Output: 11/21/16 11/22/16 18:59 06:59 Intake Total 850 Output Total 601 Balance 249 - Medications Medications: Current Medications Atorvastatin Calcium (Lipitor) 20 mg PO HS [facility] Last Admin: 11/20/16 21:26 Dose: 20 mg Diltiazem HCl (Cardizem Cd) 240 mg PO DAILY [facility] Last Admin: 11/21/16 10:14 Dose: 240 mg Furosemide (Lasix) 20 mg PO DAILY [facility] Last Admin: 11/21/16 09:49 Dose: 20 mg Magnesium Oxide (Mag-Ox) 400 mg PO BID [facility] Last Admin: 11/21/16 18:13 Dose: 400 mg Metoprolol Succinate (Toprol Xl) 50 mg PO DAILY [facility] Last Admin: 11/21/16 09:49 Dose: 50 mg Morphine Sulfate (Morphine) 0.5 mg IVP Q4H PRN PRN Reason: Pain, severe (8-10) Ondansetron HCl (Zofran Inj) 8 mg IVP Q6H PRN PRN Reason: Nausea/Vomiting Last Admin: 11/17/16 02:53 Dose: 8 mg Pantoprazole Sodium (Protonix Inj) 40 mg IVP Q12H [facility] Last Admin: 11/21/16 15:26 Dose: 40 mg Polyethylene Glycol (Miralax) 17 gm PO DAILY [facility] Last Admin: 11/16/16 13:43 Dose: 17 gm Potassium Chloride (K-Dur 20 Meq Er Tab) 20 meq PO BRK [facility] Last Admin: 11/21/16 09:49 Dose: 20 meq Ramipril (Altace) 5 mg PO DAILY [facility] Last Admin: 11/21/16 09:48 Dose: 5 mg Simethicone (Mylicon Liq) 40 mg PO QID [facility] Last Admin: 11/16/16 15:48 Dose: Not Given Sucralfate (Carafate Oral Susp) 1 gm PO 0600,1600 [facility] Last Admin: 11/21/16 15:26 Dose: 1 gm - Labs Labs: 11/21/16 05:15 11/21/16 05:15 PT 11.3 Seconds (9.9-11.8) 11/18/16 05:45 INR 1.05 (0.93-1.08) 11/18/16 05:45 APTT 25.0 Seconds (23.7-30.8) 11/16/16 14:30
[2016-11-22] MEDS: Sucralfate 1 gm/10 ml Oral Susp UD PO SCH (05:20)
[2016-11-22 06:49] VITALS: O2SAT 95
[2016-11-22 07:05] LABS: HEMATOCRIT 27.9 % (36.0-48.0); MEAN CELL VOLUME 91.2 fL (80.0-105.0); MEAN CORPUSCULAR HEMOGLOBIN 29.4 pg (25.0-35.0); MEAN CORPUSCULAR HGB CONC 32.3 g/dl (31.0-37.0); RED CELL DISTRIBUTION WIDTH 15.8 % (11.5-14.5); WHITE BLOOD COUNT 7.3 10^3/ul (4.5-11.0)
[2016-11-22 07:10] LABS: ALKALINE PHOSPHATASE 65 U/L (38-133); ALT/SGPT 15 U/L (7-56); AST/SGOT 15 U/L (15-39); BILIRUBIN,TOTAL 0.6 mg/dL (0.2-1.3); BLOOD UREA NITROGEN 10 mg/dL (7-21); CALCIUM 8.4 mg/dL (8.4-10.5); CARBON DIOXIDE 32 mmol/L (21-33); CHLORIDE 99 mmol/L (98-107); GFR AFRICAN-AMERICAN > 60; GLUCOSE,RANDOM 93 mg/dL (70-110); MAGNESIUM 1.7 mg/dL (1.7-2.2); POTASSIUM 3.6 mmol/L (3.6-5.0); SODIUM 136 mmol/L (132-148); TOTAL PROTEIN 5.2 g/dL (5.8-8.3)
[2016-11-22] MEDS: Potassium Chloride 20 mEq ER Tab PO SCH (08:00)
--- NOTE | 2016-11-22 08:10 | CP.PCM.PN ---
Subjective - Date & Time of Evaluation Date of Evaluation: 11/22/16 Time of Evaluation: 07:00 - Subjective Subjective: Stable on 2R. No chest pain, sob. Weak. V/S noted. AF with moderate rates PE: Lungs: rhonchi Cor.: irreg., S1S2 Abd.: soft Ext: no edema Neuro.: alert I/O = 970/1100 Labs noted: H/H 9/27.9, K+= 3.6, Mg.++= 1.7 Bleeding scan: Neg. EGD (vebal): Esoph ulcers, Mckeon's Esophagus, etc. No active bleeding seen. Objective - Vital Signs/Intake and Output Vital Signs (last 24 hours): Temp Pulse Resp BP Pulse Ox 97.7 F 84 18 109/50 L 95 11/22/16 06:00 11/22/16 06:00 11/22/16 06:00 11/22/16 06:00 11/22/16 06:00 Intake and Output: 11/22/16 11/22/16 06:59 18:59 Intake Total 120 Output Total 500 Balance -380 - Medications Medications: Current Medications Atorvastatin Calcium (Lipitor) 20 mg PO HS [facility] Last Admin: 11/21/16 22:28 Dose: 20 mg Diltiazem HCl (Cardizem Cd) 240 mg PO DAILY [facility] Last Admin: 11/21/16 10:14 Dose: 240 mg Furosemide (Lasix) 20 mg PO DAILY [facility] Last Admin: 11/21/16 09:49 Dose: 20 mg Magnesium Oxide (Mag-Ox) 400 mg PO BID [facility] Last Admin: 11/21/16 18:13 Dose: 400 mg Metoprolol Succinate (Toprol Xl) 50 mg PO DAILY [facility] Last Admin: 11/21/16 09:49 Dose: 50 mg Morphine Sulfate (Morphine) 0.5 mg IVP Q4H PRN PRN Reason: Pain, severe (8-10) Ondansetron HCl (Zofran Inj) 8 mg IVP Q6H PRN PRN Reason: Nausea/Vomiting Last Admin: 11/17/16 02:53 Dose: 8 mg Pantoprazole Sodium (Protonix Inj) 40 mg IVP Q12H [facility] Last Admin: 11/22/16 03:25 Dose: 40 mg Polyethylene Glycol (Miralax) 17 gm PO DAILY [facility] Last Admin: 11/16/16 13:43 Dose: 17 gm Potassium Chloride (K-Dur 20 Meq Er Tab) 20 meq PO BRK [facility] Last Admin: 11/21/16 09:49 Dose: 20 meq Ramipril (Altace) 5 mg PO DAILY [facility] Last Admin: 11/21/16 09:48 Dose: 5 mg Simethicone (Mylicon Liq) 40 mg PO QID [facility] Last Admin: 11/16/16 15:48 Dose: Not Given Sucralfate (Carafate Oral Susp) 1 gm PO 0600,1600 [facility] Last Admin: 11/22/16 05:20 Dose: 1 gm - Labs Labs: 11/22/16 05:10 11/22/16 05:10 PT 11.3 Seconds (9.9-11.8) 11/18/16 05:45 INR 1.05 (0.93-1.08) 11/18/16 05:45 APTT 25.0 Seconds (23.7-30.8) 11/16/16 14:30 Assessment and Plan - Assessment and Plan (Free Text) Assessment: Acute GIB while on Eliquis for AF. Esophageal ulcers and Mckeon's Esophagus AF with RVR CAD/CABG/MVR/PCI COPD/Bronchitis/Sinusitis HBP Cataract surgery Echo: mod. MR and mild/mod PH Plan: PO diltiazem and PO metoprolol Replace Mg.++ and K+ As per GI and Dr. Cheatham Monitor: labs, H/H, I/O, sats. etc. OOB to chair as germain. No A/C for AF.
[2016-11-22] MEDS: diltiaZEM 240 mg/24 Hours CD Cap PO SCH (09:23)
[2016-11-22] MEDS: Metoprolol Succinate 50 mg XL Tab PO SCH (09:23)
[2016-11-22] MEDS: Magnesium Oxide 400 mg Tab UD PO SCH (09:23)
[2016-11-22 11:47] VITALS: BP 98/59; RESP 19; TEMP 97.2
[2016-11-22 15:04] VITALS: PULSE 86
--- NOTE | 2016-11-22 16:27 | PN ---
DATE: 11/22/2016 Seen and examined at the bedside earlier today. No reports of any overt GI bleed. The patient denie s nausea, vomiting, or abdominal pain. She is having bowel movement, but no bleeding. No reports of acute overnight events. VITAL SIGNS: Temperature is 97.7, blood pressure is 123/74, pulse 88, respirations 19. LABORATORIES: WBC 7.3, H and H is 9.0 and 27.9, platelets of 162. Sodium 136, K is 3.6, BUN 10, cre atinine 0.8. LFTs are within normal limits. PHYSICAL EXAMINATION: HEENT: Sclera is anicteric. NECK: Supple. CARDIAC: S1, S2. LUNG SOUNDS: With rhonchi. ABDOMEN: With bowel sounds, soft, nontender. EXTREMITIES: No edema. NEUROLOGIC: Awake, alert, and oriented. ASSESSMENT: Status post acute gastrointestinal bleed. The patient was on Eliquis for atrial fibrill ation, had endoscopy, found to have esophageal ulcers and Mckeon's esophagus, history of coronary ar candido disease, coronary artery bypass graft, cardiac stents. The patient also has history of atrial f ibrillation with rapid ventricular response. She ulceration in the esophagus, was thought to b e maybe related to food impaction. The patient poor dentition. She had no teeth and likely was havi ng difficulty swallowing at times. PLAN: Continue the pureed diet or if patient uses dentures, should eat soft food and chew well. She will need a repeat endoscopy in about 4-6 weeks' time to evaluate the healing and have biopsy follow up. No biopsies were done when she had the endoscopy. At the time, the patient was on Eliquis. Con tinue her diet that she is on now. She is on pureed. Continue PPI. She is on 40 IV q. 12. She is on magnesium replacement, Lasix, Cardizem. Monitor electrolytes and she is also on Carafate. The patient was seen and case discussed with Dr. Owusu. Kita Malikes XIMENA cc: [id number] TT: 11/22/2016 16:26:16 Confirmation # [id number] Dictation # [id number] en
--- NOTE | 2016-11-22 18:35 | DS ---
This is an 86-year-old female who came into the hospital and was found to have atrial fibrillation, jeny atkins see the note that was dictated on 11/16/2016 for details. She had developed a GI bleed and so s he was sent to the ICU. She had been on anticoagulation. She was given a transfusion. She had impr ovement of her symptoms. Her hemoglobin is stable. She has not been able to walk that well, so she is going to be discharged to the transitional care unit. PHYSICAL EXAMINATION: VITAL SIGNS: She has a temperature of 98.6, pulse of 78, respirations 16, blood pressure is 128/72. GENERAL: The patient is comfortable, in no acute distress. HEENT: Anicteric sclerae. Moist mucosa. NECK: No JVD or adenopathy. CARDIAC: S1/S2. No murmurs. No rubs. Regular. RESPIRATORY: Clear to auscultation bilaterally. No wheezes, rales, or rhonchi. Good air entry. ABDOMEN: Bowel sounds are positive, soft, nontender, and nondistended. EXTREMITIES: No edema. Has 1+ pulses. DISCHARGE DIAGNOSES: 1. Acute anemia secondary to blood loss secondary to gastrointestinal bleed. 2. Atrial fibrillation, not on anticoagulation secondary to bleeding. 3. Dyslipidemia. 4. Coronary artery disease 5. Hypertension. 6. Chronic obstructive pulmonary disease. PLAN: The patient is currently comfortable. She is not on anticoagulation. [facility] is [facility] to [facility]. Medications have been reviewed. CONDITION: Stable. ACTIVITIES: Increase as tolerated. Wilfred Cheatham MD cc: [id number] TT: 11/22/2016 18:34:05 marline
--- NOTE | 2016-11-23 02:35 | PN ---
DATE: 11/22/2016 ADDENDUM: SUBJECTIVE: This patient was seen and evaluated. This is an addendum to the GI progress report dict ated by Kita Mathis APN. The diet has been advanced to pureed diet, is tolerating. The patient has reported no dentition. History of ulceration with a long segment Mckeon's. PLAN: Is reasonable to leave on a pureed diet. The patient would need a repeat endoscopy to evaluat e the healing of the ulcer and biopsy follow up in 4 weeks' time. Thank you very much for allowing us to participate in the care of the patient. Lay Owusu MD cc: [id number] TT: 11/23/2016 02:35:02 Confirmation # [id number] Dictation # [id number] mn
== END 2016-11-22 16:50 | DRG 309 ==
LOC: ED 16:05 → ERH 20:20 → 2RNO 22:12 → CCU 11-16 14:55 → 2RNO 11-21 16:16
PROVIDERS: ADMIT Internal Medicine Nephrology; ATTEND Internal Medicine Nephrology
PROC: 30233N1 Transfusion of Nonautologous Red Blood Cells into Peripheral Vein, Percutaneous Approach (ICD-10-PCS; principal; 2016-11-16)
PROC: 0DJ08ZZ Inspection of Upper Intestinal Tract, Via Natural or Artificial Opening Endoscopic (ICD-10-PCS; 2016-11-18)
DX: I48.1 Persistent atrial fibrillation (principal); K92.2 Gastrointestinal hemorrhage, unspecified; D62 Acute posthemorrhagic anemia; I27.2 Other secondary pulmonary hypertension; K22.10 Ulcer of esophagus without bleeding; I10 Essential (primary) hypertension; I25.10 Atherosclerotic heart disease of native coronary artery without angina pectoris; J44.9 Chronic obstructive pulmonary disease, unspecified; E78.5 Hyperlipidemia, unspecified; F41.9 Anxiety disorder, unspecified; G47.00 Insomnia, unspecified; I35.0 Nonrheumatic aortic (valve) stenosis; R25.1 Tremor, unspecified; E87.6 Hypokalemia; I36.1 Nonrheumatic tricuspid (valve) insufficiency; K59.00 Constipation, unspecified; I48.2 Chronic atrial fibrillation; K22.70 Barrett's esophagus without dysplasia; Z91.19 Patient's noncompliance with other medical treatment and regimen; Z95.1 Presence of aortocoronary bypass graft; Z95.2 Presence of prosthetic heart valve; Z95.5 Presence of coronary angioplasty implant and graft

== ENCOUNTER 2016-11-22 16:50 | Inpatient (IN) | payer OTHER, MEDICARE ==
[2016-11-22 20:12] VITALS: BMI 19.9
[2016-11-22] MEDS ORDERED: Morphine 2 mg/ml ISec IVP PRN (20:24)
[2016-11-23] MEDS: Sucralfate 1 gm/10 ml Oral Susp UD PO SCH ×2 (05:46→17:20)
[2016-11-23] MEDS ORDERED: Pantoprazole 40mg/100ml IVPB 40 MG/100 ML BAG IVPB SCH (06:00)
[2016-11-23 07:38] LABS: BASO # 0.02 K/mm3 (0.0-2.0); BASO % 0.3 % (0.0-3.0); EOS # 0.1 (0.0-0.7); EOS % 1.4 % (1.5-5.0); GRAN # 4.67 (1.4-6.5); GRAN % 73.6 % (50.0-68.0); HEMOGLOBIN 9.3 gm/dL (12.0-16.0); LYMPH # 0.9 (1.2-3.4); MEAN CELL VOLUME 90.5 fL (80.0-105.0); MEAN CORPUSCULAR HEMOGLOBIN 28.4 pg (25.0-35.0); MEAN CORPUSCULAR HGB CONC 31.3 g/dl (31.0-37.0); MEAN PLATELET VOLUME 9.6 fl (7.0-11.0); MONO # 0.7 (0.1-0.6); MONO % 10.7 % (1.0-6.0); PLATELET COUNT 195 10^3/uL (120.0-450.0); RBC 3.28 10^6/uL (3.5-6.1); RED CELL DISTRIBUTION WIDTH 15.6 % (11.5-14.5); WHITE BLOOD COUNT 6.4 10^3/ul (4.5-11.0)
[2016-11-23 07:44] LABS: ALB/GLOB RATIO 1.1 (1.1-1.8); ALT/SGPT 22 U/L (7-56); AST/SGOT 17 U/L (15-39); BLOOD UREA NITROGEN 14 mg/dL (7-21); CALCIUM 8.2 mg/dL (8.4-10.5); GFR AFRICAN-AMERICAN > 60; GFR NON-AFRICAN AMERICAN > 60
--- NOTE | 2016-11-23 07:58 | CP.PCM.PN ---
Subjective - Date & Time of Evaluation Date of Evaluation: 11/23/16 Time of Evaluation: 07:00 - Subjective Subjective: Stable in TCU now. No CP or SOB V/ noted. PE: Lungs: clear Cor.: irreg., S1S2 Abd.: soft Ext.: no edema Neuro.: alert labs noted: H/H = 9.3/29.7, K+= 3.6 Objective - Vital Signs/Intake and Output Vital Signs (last 24 hours): Temp Pulse Resp BP Pulse Ox 98.4 F 72 18 125/51 L 94 L 11/23/16 06:00 11/23/16 06:00 11/23/16 06:00 11/23/16 06:00 11/23/16 06:00 - Medications Medications: Current Medications Alprazolam (Xanax) 0.25 mg PO HS [facility] PRN Reason: Protocol Stop: 11/29/16 22:01 Last Admin: 11/22/16 22:02 Dose: 0.25 mg Atorvastatin Calcium (Lipitor) 20 mg PO DAILY [facility] PRN Reason: Protocol Diltiazem HCl (Cardizem Cd) 240 mg PO DAILY [facility] PRN Reason: Protocol Furosemide (Lasix) 20 mg PO DAILY [facility] PRN Reason: Protocol Pantoprazole Sodium (Protonix 40mg Ivpb) 40 mg in 100 mls @ 200 mls/hr IVPB 0600,1800 [facility] PRN Reason: Protocol Last Admin: 11/23/16 05:47 Dose: 200 mls/hr Magnesium Oxide (Mag-Ox) 400 mg PO BID [facility] PRN Reason: Protocol Metoprolol Succinate (Toprol Xl) 50 mg PO 0800 [facility] PRN Reason: Protocol Morphine Sulfate (Morphine) 0.5 mg IVP Q4H PRN; Protocol PRN Reason: Severe Pain Ondansetron HCl (Zofran Inj) 8 mg IVP Q6H PRN; Protocol PRN Reason: N/V Potassium Chloride (K-Dur 20 Meq Er Tab) 20 meq PO 0800 [facility] PRN Reason: Protocol Ramipril (Altace) 5 mg PO DAILY [facility] PRN Reason: Protocol Sucralfate (Carafate Oral Susp) 1 gm PO 0600,1600 [facility] PRN Reason: Protocol Last Admin: 11/23/16 05:46 Dose: 1 gm - Labs Labs: 11/23/16 07:30 11/23/16 07:30 Assessment and Plan - Assessment and Plan (Free Text) Assessment: GIB while on Eliquis Esophageal ulcers and Mckeon's Esophagus AF with RVR CAD/CABG/MVR/PCI COPD/Bronchitis/Sinusitis HBP Cataract Surgery Echo: Mod. MR, Mild to moderate PH Plan: Continue metoprolol and cardizem Replace K+, Mg.++ per GI and Dr. Cheatham. OOB/PT/Rehab. No A/C for AF.
[2016-11-23] MEDS ORDERED: Potassium Chloride 20 mEq ER Tab PO SCH (08:00)
[2016-11-23] MEDS: Metoprolol Succinate 50 mg XL Tab PO SCH (08:20)
[2016-11-23] MEDS: diltiaZEM 240 mg/24 Hours CD Cap PO SCH (10:30)
[2016-11-23] MEDS: Potassium Chloride 20 mEq ER Tab PO SCH ×2 (10:31→17:21)
[2016-11-23] MEDS: Magnesium Oxide 400 mg Tab UD PO SCH ×2 (10:32→17:21)
--- NOTE | 2016-11-23 15:31 | CP.PCM.PN ---
Subjective - Date & Time of Evaluation Date of Evaluation: 11/23/16 Time of Evaluation: 09:45 - Subjective Subjective: S&E earlier today in TCU. OOB to chair, no acute overnight events or complaints. Eating well, no N/V. No BM since in ICU with melena. NO abdominal pain. Objective - Vital Signs/Intake and Output Vital Signs (last 24 hours): Temp Pulse Resp BP Pulse Ox 98.3 F 93 H 19 138/83 98 11/23/16 10:00 11/23/16 13:18 11/23/16 10:00 11/23/16 10:31 11/23/16 10:00 - Medications Medications: Current Medications Alprazolam (Xanax) 0.25 mg PO HS MULUGETA PRN Reason: Protocol Stop: 11/29/16 22:01 Last Admin: 11/22/16 22:02 Dose: 0.25 mg Atorvastatin Calcium (Lipitor) 20 mg PO DAILY MULUGETA PRN Reason: Protocol Last Admin: 11/23/16 10:31 Dose: 20 mg Diltiazem HCl (Cardizem Cd) 240 mg PO DAILY MULUGETA PRN Reason: Protocol Last Admin: 11/23/16 10:30 Dose: 240 mg Furosemide (Lasix) 20 mg PO DAILY MULUGETA PRN Reason: Protocol Last Admin: 11/23/16 10:31 Dose: 20 mg Pantoprazole Sodium (Protonix 40mg Ivpb) 40 mg in 100 mls @ 200 mls/hr IVPB 0600,1800 MULUGETA PRN Reason: Protocol Last Admin: 11/23/16 05:47 Dose: 200 mls/hr Magnesium Oxide (Mag-Ox) 400 mg PO BID MULUGETA PRN Reason: Protocol Last Admin: 11/23/16 10:32 Dose: 400 mg Metoprolol Succinate (Toprol Xl) 50 mg PO 0800 MULUGETA PRN Reason: Protocol Last Admin: 11/23/16 08:20 Dose: 50 mg Morphine Sulfate (Morphine) 0.5 mg IVP Q4H PRN; Protocol PRN Reason: Severe Pain Ondansetron HCl (Zofran Inj) 8 mg IVP Q6H PRN; Protocol PRN Reason: N/V Potassium Chloride (K-Dur 20 Meq Er Tab) 20 meq PO BID MULUGETA PRN Reason: Protocol Last Admin: 11/23/16 10:31 Dose: 20 meq Ramipril (Altace) 5 mg PO DAILY MULUGETA PRN Reason: Protocol Last Admin: 11/23/16 10:30 Dose: 5 mg Sucralfate (Carafate Oral Susp) 1 gm PO 0600,1600 MULUGETA PRN Reason: Protocol Last Admin: 11/23/16 05:46 Dose: 1 gm - Labs Labs: 11/23/16 07:30 11/23/16 07:30 - Constitutional Appears: No Acute Distress - Eye Exam Eye Exam: Normal appearance. absent: Scleral icterus - ENT Exam ENT Exam: Mucous Membranes Moist - Neck Exam Neck Exam: Normal Inspection - Respiratory Exam Respiratory Exam: NORMAL BREATHING PATTERN. absent: Respiratory Distress - Cardiovascular Exam Cardiovascular Exam: +S1, +S2 - GI/Abdominal Exam GI & Abdominal Exam: Soft, Normal Bowel Sounds. absent: Guarding, Tenderness, Rebound - Extremities Exam Extremities Exam: absent: Calf Tenderness, Pedal Edema - Neurological Exam Neurological Exam: Alert, Awake, Oriented x3 - Skin Skin Exam: Dry, Warm Assessment and Plan - Assessment and Plan (Free Text) Assessment: ASSESSMENT: S/P GIB s/p EGD esphageal ulcers & BE Atrial Fibrillation w/ RVR CABG, cardiac stents Constipation PLAN: continue Protonix Q12, change to PO Carafate BID puree diet, poor dentition, if use denture can change to soft diet on Cardiezem remains off Eliquis repeat EGD in 4-6 weeks time start Miralax daily, hold stools>2/day. DVT propphylaxsis,SCD The patient was seen and case discussed with Dr. Owusu.
[2016-11-23] MEDS: Pantoprazole 40 mg EC Tab PO SCH (17:20)
[2016-11-23] MEDS: POLYETHYLENE GLYCOL 3350 17 GM/Dose PACKET PO SCH (23:28)
[2016-11-24] MEDS: Pantoprazole 40 mg EC Tab PO SCH ×2 (05:47→17:49)
[2016-11-24] MEDS: Sucralfate 1 gm/10 ml Oral Susp UD PO SCH ×2 (05:48→17:49)
[2016-11-24 07:44] LABS: BASO # 0.03 K/mm3 (0.0-2.0); BASO % 0.4 % (0.0-3.0); EOS # 0.1 (0.0-0.7); EOS % 1.2 % (1.5-5.0); GRAN # 5.02 (1.4-6.5); GRAN % 74.4 % (50.0-68.0); HEMOGLOBIN 9.1 gm/dL (12.0-16.0); LYMPH # 1.1 (1.2-3.4); LYMPH % 15.7 % (22.0-35.0); MEAN CELL VOLUME 91.5 fL (80.0-105.0); MEAN CORPUSCULAR HEMOGLOBIN 29.6 pg (25.0-35.0); MEAN CORPUSCULAR HGB CONC 32.4 g/dl (31.0-37.0); MEAN PLATELET VOLUME 9.9 fl (7.0-11.0); MONO # 0.6 (0.1-0.6); MONO % 8.3 % (1.0-6.0); PLATELET COUNT 227 10^3/uL (120.0-450.0); RBC 3.07 10^6/uL (3.5-6.1); RED CELL DISTRIBUTION WIDTH 15.5 % (11.5-14.5); WHITE BLOOD COUNT 6.8 10^3/ul (4.5-11.0)
[2016-11-24 08:02] LABS: BLOOD UREA NITROGEN 16 mg/dL (7-21); CALCIUM 8.4 mg/dL (8.4-10.5); GFR AFRICAN-AMERICAN > 60; GFR NON-AFRICAN AMERICAN 59; MAGNESIUM 1.9 mg/dL (1.7-2.2)
[2016-11-24] MEDS: Metoprolol Succinate 50 mg XL Tab PO SCH (08:02)
[2016-11-24] MEDS: POLYETHYLENE GLYCOL 3350 17 GM/Dose PACKET PO SCH (11:09)
[2016-11-24] MEDS: diltiaZEM 240 mg/24 Hours CD Cap PO SCH (11:11)
[2016-11-24] MEDS: Potassium Chloride 20 mEq ER Tab PO SCH ×2 (11:11→17:49)
[2016-11-24] MEDS: Magnesium Oxide 400 mg Tab UD PO SCH ×2 (11:12→17:48)
[2016-11-25] MEDS: Sucralfate 1 gm/10 ml Oral Susp UD PO SCH ×2 (05:47→16:20)
[2016-11-25] MEDS: Pantoprazole 40 mg EC Tab PO SCH ×2 (05:48→16:21)
[2016-11-25] MEDS: Metoprolol Succinate 50 mg XL Tab PO SCH (07:49)
--- NOTE | 2016-11-25 07:51 | CP.PCM.PN ---
Subjective - Date & Time of Evaluation Date of Evaluation: 11/25/16 Time of Evaluation: 07:00 - Subjective Subjective: Stable in TCU now. No CP or SOB V/ noted. PE: Lungs: clear Cor.: irreg., S1S2 Abd.: soft Ext.: no edema Neuro.: alert labs 11/24 noted: K+= 3.9, Mg.++= 1.9 Objective - Vital Signs/Intake and Output Vital Signs (last 24 hours): Temp Pulse Resp BP Pulse Ox 98.9 F 63 16 108/61 94 L 11/25/16 06:00 11/25/16 06:00 11/25/16 06:00 11/25/16 06:00 11/25/16 06:00 Intake and Output: 11/25/16 11/25/16 06:59 18:59 Intake Total 680 Balance 680 - Medications Medications: Current Medications Alprazolam (Xanax) 0.25 mg PO HS MULUGETA PRN Reason: Protocol Stop: 11/29/16 22:01 Last Admin: 11/24/16 21:18 Dose: 0.25 mg Atorvastatin Calcium (Lipitor) 20 mg PO DAILY MULUGETA PRN Reason: Protocol Last Admin: 11/24/16 11:12 Dose: 20 mg Diltiazem HCl (Cardizem Cd) 240 mg PO DAILY MULUGETA PRN Reason: Protocol Last Admin: 11/24/16 11:11 Dose: 240 mg Furosemide (Lasix) 20 mg PO DAILY MULUGETA PRN Reason: Protocol Last Admin: 11/24/16 11:12 Dose: 20 mg Magnesium Oxide (Mag-Ox) 400 mg PO BID MULUGETA PRN Reason: Protocol Last Admin: 11/24/16 17:48 Dose: 400 mg Metoprolol Succinate (Toprol Xl) 50 mg PO 0800 MULUGETA PRN Reason: Protocol Last Admin: 11/24/16 08:02 Dose: 50 mg Morphine Sulfate (Morphine) 0.5 mg IVP Q4H PRN; Protocol PRN Reason: Severe Pain Ondansetron HCl (Zofran Inj) 8 mg IVP Q6H PRN; Protocol PRN Reason: N/V Pantoprazole Sodium (Protonix Ec Tab) 40 mg PO 0600,1600 [facility] Last Admin: 11/25/16 05:48 Dose: 40 mg Polyethylene Glycol (Miralax) 17 gm PO DAILY [facility] Last Admin: 11/24/16 11:09 Dose: 17 gm Potassium Chloride (K-Dur 20 Meq Er Tab) 20 meq PO BID MULUGETA PRN Reason: Protocol Last Admin: 11/24/16 17:49 Dose: 20 meq Ramipril (Altace) 5 mg PO DAILY MULUGETA PRN Reason: Protocol Last Admin: 11/24/16 11:10 Dose: 5 mg Sucralfate (Carafate Oral Susp) 1 gm PO 0600,1600 MULUGETA PRN Reason: Protocol Last Admin: 11/25/16 05:47 Dose: 1 gm - Labs Labs: 11/24/16 06:45 11/24/16 06:45 Assessment and Plan - Assessment and Plan (Free Text) Assessment: GIB while on Eliquis Esophageal ulcers and Mckeon's Esophagus AF with RVR CAD/CABG/MVR/PCI COPD/Bronchitis/Sinusitis HBP Cataract Surgery Echo: Mod. MR, Mild to moderate PH Plan: Continue metoprolol and cardizem Replace K+, Mg.++ per GI and Dr. Cheatham. OOB/PT/Rehab. No A/C for AF.
[2016-11-25] MEDS: diltiaZEM 240 mg/24 Hours CD Cap PO SCH (10:58)
[2016-11-25] MEDS: Potassium Chloride 20 mEq ER Tab PO SCH ×2 (10:59→17:53)
[2016-11-25] MEDS: POLYETHYLENE GLYCOL 3350 17 GM/Dose PACKET PO SCH (11:00)
[2016-11-25] MEDS: Magnesium Oxide 400 mg Tab UD PO SCH ×2 (11:00→17:53)
--- NOTE | 2016-11-25 18:09 | CP.PCM.PN ---
Subjective - Date & Time of Evaluation Date of Evaluation: 11/25/16 Time of Evaluation: 18:05 - Subjective Subjective: Pt with no complaints. Eating ok. PT working with pt. Objective - Vital Signs/Intake and Output Vital Signs (last 24 hours): Temp Pulse Resp BP Pulse Ox 98.9 F 86 16 107/67 94 L 11/25/16 06:00 11/25/16 10:58 11/25/16 06:00 11/25/16 10:59 11/25/16 06:00 Intake and Output: 11/25/16 11/25/16 06:59 18:59 Intake Total 680 420 Balance 680 420 - Medications Medications: Current Medications Alprazolam (Xanax) 0.25 mg PO HS MULUGETA PRN Reason: Protocol Stop: 11/29/16 22:01 Last Admin: 11/24/16 21:18 Dose: 0.25 mg Atorvastatin Calcium (Lipitor) 20 mg PO DAILY MULUGETA PRN Reason: Protocol Last Admin: 11/25/16 11:00 Dose: 20 mg Diltiazem HCl (Cardizem Cd) 240 mg PO DAILY MULUGETA PRN Reason: Protocol Last Admin: 11/25/16 10:58 Dose: 240 mg Furosemide (Lasix) 20 mg PO DAILY MULUGETA PRN Reason: Protocol Last Admin: 11/25/16 10:59 Dose: 20 mg Magnesium Oxide (Mag-Ox) 400 mg PO BID MULUGETA PRN Reason: Protocol Last Admin: 11/25/16 17:53 Dose: 400 mg Metoprolol Succinate (Toprol Xl) 50 mg PO 0800 MULUGETA PRN Reason: Protocol Last Admin: 11/25/16 07:49 Dose: 50 mg Morphine Sulfate (Morphine) 0.5 mg IVP Q4H PRN; Protocol PRN Reason: Severe Pain Ondansetron HCl (Zofran Inj) 8 mg IVP Q6H PRN; Protocol PRN Reason: N/V Pantoprazole Sodium (Protonix Ec Tab) 40 mg PO 0600,1600 [facility] Last Admin: 11/25/16 16:21 Dose: 40 mg Polyethylene Glycol (Miralax) 17 gm PO DAILY [facility] Last Admin: 11/25/16 11:00 Dose: 17 gm Potassium Chloride (K-Dur 20 Meq Er Tab) 20 meq PO BID MULUGETA PRN Reason: Protocol Last Admin: 11/25/16 17:53 Dose: 20 meq Ramipril (Altace) 5 mg PO DAILY MULUGETA PRN Reason: Protocol Last Admin: 11/25/16 10:57 Dose: 5 mg Sucralfate (Carafate Oral Susp) 1 gm PO 0600,1600 MULUGETA PRN Reason: Protocol Last Admin: 11/25/16 16:20 Dose: 1 gm - Labs Labs: 11/24/16 06:45 11/24/16 06:45 - Constitutional Appears: Well - Head Exam Head Exam: NORMAL INSPECTION - Eye Exam Eye Exam: EOMI, Normal appearance, PERRL - ENT Exam ENT Exam: Mucous Membranes Moist, Normal Exam - Neck Exam Neck Exam: Full ROM, Normal Inspection. absent: Lymphadenopathy - Respiratory Exam Respiratory Exam: Clear to Ausculation Bilateral, NORMAL BREATHING PATTERN. absent: Prolonged Expiratory Phase, Rales, Rhonchi - Cardiovascular Exam Cardiovascular Exam: REGULAR RHYTHM, +S1, +S2. absent: Murmur - GI/Abdominal Exam GI & Abdominal Exam: Soft, Normal Bowel Sounds. absent: Tenderness, Hypoactive Bowel Sounds, Organomegaly, Rebound - Extremities Exam Extremities Exam: Normal Inspection - Neurological Exam Neurological Exam: Alert, Awake, CN II-XII Intact, Normal Gait, Oriented x3 Assessment and Plan - Assessment and Plan (Free Text) Assessment: 1. Acute anemia secondary to blood loss secondary to gastrointestinal bleed. 2. Atrial fibrillation, not on anticoagulation secondary to bleeding. 3. Dyslipidemia. 4. Coronary artery disease. 5. Hypertension. 6. Chronic obstructive pulmonary disease. . Plan: The patient is currently on Cardizem and Lasix daily. She is on Lipitor for dyslipidemia. She is going to have continued followup with a CBC. She is eating. Meds reviewed.
[2016-11-26] MEDS: Sucralfate 1 gm/10 ml Oral Susp UD PO SCH ×2 (05:24→17:25)
[2016-11-26] MEDS: Pantoprazole 40 mg EC Tab PO SCH ×2 (05:25→17:27)
[2016-11-26] MEDS: Metoprolol Succinate 50 mg XL Tab PO SCH (08:07)
[2016-11-26] MEDS: diltiaZEM 240 mg/24 Hours CD Cap PO SCH (10:37)
[2016-11-26] MEDS: Potassium Chloride 20 mEq ER Tab PO SCH ×2 (10:38→17:25)
[2016-11-26] MEDS: Magnesium Oxide 400 mg Tab UD PO SCH ×2 (10:39→17:26)
[2016-11-26] MEDS: POLYETHYLENE GLYCOL 3350 17 GM/Dose PACKET PO SCH (10:39)
[2016-11-27] MEDS: Pantoprazole 40 mg EC Tab PO SCH (05:21)
[2016-11-27] MEDS: Sucralfate 1 gm/10 ml Oral Susp UD PO SCH (05:21)
[2016-11-27] MEDS: Metoprolol Succinate 50 mg XL Tab PO SCH (08:00)
[2016-11-27] MEDS: diltiaZEM 240 mg/24 Hours CD Cap PO SCH (09:57)
[2016-11-27] MEDS: Potassium Chloride 20 mEq ER Tab PO SCH (09:58)
[2016-11-27] MEDS: Magnesium Oxide 400 mg Tab UD PO SCH (10:00)
[2016-11-27] MEDS: POLYETHYLENE GLYCOL 3350 17 GM/Dose PACKET PO SCH (10:00)
[2016-11-28] MEDS: Sucralfate 1 gm/10 ml Oral Susp UD PO SCH ×2 (06:08→17:15)
[2016-11-28] MEDS: Pantoprazole 40 mg EC Tab PO SCH ×2 (06:08→17:17)
[2016-11-28 06:50] LABS: ALB/GLOB RATIO 1.1 (1.1-1.8); ALBUMIN 3.6 g/dL (3.0-4.8); BASO # 0.04 K/mm3 (0.0-2.0); BASO % 0.6 % (0.0-3.0); CALCIUM 8.9 mg/dL (8.4-10.5); EOS # 0.1 (0.0-0.7); EOS % 0.9 % (1.5-5.0); GRAN # 5.03 (1.4-6.5); GRAN % 75.3 % (50.0-68.0); HEMOGLOBIN 10.9 gm/dL (12.0-16.0); LYMPH # 1.1 (1.2-3.4); LYMPH % 16.6 % (22.0-35.0); MEAN CELL VOLUME 90.9 fL (80.0-105.0); MEAN CORPUSCULAR HEMOGLOBIN 29.1 pg (25.0-35.0); MEAN PLATELET VOLUME 9.3 fl (7.0-11.0); MONO # 0.4 (0.1-0.6); MONO % 6.6 % (1.0-6.0); PLATELET COUNT 344 10^3/uL (120.0-450.0); RBC 3.75 10^6/uL (3.5-6.1); RED CELL DISTRIBUTION WIDTH 15.7 % (11.5-14.5); WHITE BLOOD COUNT 6.7 10^3/ul (4.5-11.0)
[2016-11-28] MEDS: Metoprolol Succinate 50 mg XL Tab PO SCH (08:02)
[2016-11-28] MEDS: diltiaZEM 240 mg/24 Hours CD Cap PO SCH (09:56)
[2016-11-28] MEDS: Potassium Chloride 20 mEq ER Tab PO SCH ×2 (09:56→17:16)
[2016-11-28] MEDS: Magnesium Oxide 400 mg Tab UD PO SCH ×2 (09:57→17:17)
[2016-11-28] MEDS: POLYETHYLENE GLYCOL 3350 17 GM/Dose PACKET PO SCH (09:58)
[2016-11-29] MEDS: Pantoprazole 40 mg EC Tab PO SCH (05:24)
[2016-11-29] MEDS: Sucralfate 1 gm/10 ml Oral Susp UD PO SCH (05:25)
[2016-11-29 10:46] VITALS: BP 132/82; PULSE 65; RESP 14; TEMP 98.6; O2SAT 99
[2016-11-29] MEDS: Metoprolol Succinate 50 mg XL Tab PO SCH (11:00)
[2016-11-29] MEDS: POLYETHYLENE GLYCOL 3350 17 GM/Dose PACKET PO SCH (11:00)
[2016-11-29] MEDS: diltiaZEM 240 mg/24 Hours CD Cap PO SCH (11:41)
== END 2016-11-29 14:28 | disposition home or self-care (01) | DRG 309 ==
LOC: TRCU 16:50
PROVIDERS: ADMIT Internal Medicine Nephrology; ATTEND Internal Medicine Nephrology
PROC: F07Z9FZ Gait Training/Functional Ambulation Treatment using Assistive, Adaptive, Supportive or Protective Equipment (ICD-10-PCS; principal; 2016-11-23)
PROC: F08Z4FZ Home Management Treatment using Assistive, Adaptive, Supportive or Protective Equipment (ICD-10-PCS; 2016-11-23)
DX: I48.91 Unspecified atrial fibrillation (principal); D62 Acute posthemorrhagic anemia; J44.9 Chronic obstructive pulmonary disease, unspecified; I11.0 Hypertensive heart disease with heart failure; I50.9 Heart failure, unspecified; K22.10 Ulcer of esophagus without bleeding; I25.10 Atherosclerotic heart disease of native coronary artery without angina pectoris; K22.70 Barrett's esophagus without dysplasia; K59.00 Constipation, unspecified; E78.5 Hyperlipidemia, unspecified; Z95.5 Presence of coronary angioplasty implant and graft; Z95.1 Presence of aortocoronary bypass graft

== ENCOUNTER 2017-06-15 00:40 | Inpatient (IN) | payer MEDICARE ==
[2017-06-15] MEDS ORDERED: Albuterol-Ipratrop 3 mg / 0.5 (3 ml) UD IH STA (01:02)
--- NOTE | 2017-06-15 01:03 | ED PDOC ---
Arrival/HPI - General Chief Complaint: Shortness Of Breath Time Seen by Provider: 06/15/17 00:46 Historian: Patient - History of Present Illness Narrative History of Present Illness (Text): 06/15/17 01:01 86 year old female, with past medical history of CAD, COPD, hypertension and A- fib, presents to the Emergency department complaining of shortness of breath since she woke up today. Patient informs unchanged symptoms since onset bringing her to the Emergency department. Patient denies any chest pain, abdominal pain, fever, nausea, vomiting, diarrhea or any other complaints. Time/Duration: 1-3 hours Symptom Onset: Gradual Symptom Course: Unchanged Activities at Onset: Sleeping Context: Home Past Medical History - Provider Review Nursing Documentation Reviewed: Yes - Infectious Disease Hx of Infectious Diseases: None - Tetanus Immunization Tetanus Immunization: Unknown - Cardiac Hx Cardiac Disorders: Yes Hx Hypertension: Yes - Pulmonary Hx Chronic Obstructive Pulmonary Disease (COPD): Yes - HEENT Hx Cataracts: Yes (Bilateral surgery) - Integumentary Hx Dermatological Disorder: Yes Other/Comment: dry skin ble, light brown moles over back, chest, abd, redness to buttocks, slight redness to both feet/ankles, small dry red costa to ble - Musculoskeletal/Rheumatological Hx Falls: No - Gastrointestinal Hx Diverticulitis: Yes Hx Gastroesophageal Reflux: Yes - Genitourinary/Gynecological Hx Genitourinary Disorders: Yes - Psychiatric Hx Depression: No Hx Emotional Abuse: No Hx Physical Abuse: No Hx Substance Use: No - Surgical History Hx Cholecystectomy: Yes Hx Open Heart Surgery: Yes - Anesthesia Hx Anesthesia Reactions: No Hx Malignant Hyperthermia: No - Suicidal Assessment Feels Threatened In Home Enviroment: No Family/Social History - Physician Review Nursing Documentation Reviewed: Yes Family/Social History: No Known Family HX Smoking Status: Never Smoked Hx Alcohol Use: No Hx Substance Use: No Hx Substance Use Treatment: No Allergies/Home Meds Allergies/Adverse Reactions: Allergies No Known Allergies Allergy (Verified 11/22/16 20:12) Home Medications: Home Meds Medication Instructions Recorded Confirmed Unobtainable 06/15/17 06/15/17 Review of Systems - Physician Review All systems were reviewed & negative as marked: Yes - Review of Systems Constitutional: Normal. absent: Fevers Eyes: Normal ENT: Normal Respiratory: SOB Cardiovascular: Normal. absent: Chest Pain Gastrointestinal: Normal. absent: Abdominal Pain, Diarrhea, Nausea, Vomiting Genitourinary Female: Normal Musculoskeletal: Normal Skin: Normal Neurological: Normal Endocrine: Normal Hemo/Lymphatic: Normal Psychiatric: Normal Physical Exam Vital Signs Reviewed: Yes Vital Signs Temp Pulse Resp BP Pulse Ox 06/15/17 03:30 73 16 117/61 97 06/15/17 03:21 96 06/15/17 02:28 116/58 L 06/15/17 02:25 73 18 116/58 L 94 L 06/15/17 01:33 117 H 140/108 H 06/15/17 01:25 70 20 125/55 L 97 06/15/17 00:50 97.9 F 135 H 23 146/108 H 97 Temperature: Afebrile Blood Pressure: Hypertensive Pulse: Tachycardic Respiratory Rate: Normal Appearance: Positive for: Well-Appearing, Non-Toxic, Comfortable Pain Distress: None Mental Status: Positive for: Alert and Oriented X 3 - Systems Exam Head: Present: Atraumatic, Normocephalic Pupils: Present: PERRL Extroacular Muscles: Present: EOMI Conjunctiva: Present: Normal Mouth: Present: Moist Mucous Membranes Neck: Present: Normal Range of Motion Respiratory/Chest: Present: Good Air Exchange, Rales (bilaterally at bases ). No: Respiratory Distress, Accessory Muscle Use Cardiovascular: Present: Normal S1, S2, Other (Rapid A-fib ). No: Murmurs Abdomen: Present: Normal Bowel Sounds. No: Tenderness, Distention, Peritoneal Signs Back: Present: Normal Inspection Upper Extremity: Present: Normal Inspection. No: Cyanosis, Edema Lower Extremity: Present: Normal Inspection. No: Edema Neurological: Present: GCS=15, CN II-XII Intact, Speech Normal Skin: Present: Warm, Dry, Normal Color. No: Rashes Psychiatric: Present: Alert, Oriented x 3, Normal Insight, Normal Concentration Medical Decision Making ED Course and Treatment: 06/15/17 01:04 Impression: 86 year old female presents to the Emergency department for shortness of breath. Plan: -- VBG -- EKG -- Labs -- Chest X-ray -- Cardizem -- Albuterol -- Blood Culture -- Reassess and disposition Progress Notes:case d/w dr ledbetter accept case 06/15/17 05:34 - Lab Interpretations Lab Results: 06/15/17 01:20 06/15/17 01:20 Lab Results 06/15/17 01:20: Sodium 142, Chloride 103, Potassium 4.0, Carbon Dioxide 27, Anion Gap 16, BUN 11, Creatinine 0.9, Est GFR ( Amer) > 60, Est GFR (Non- Af Amer) 59, Random Glucose 103, Calcium 9.3, Total Bilirubin 0.6, AST 55 H, ALT 28, Alkaline Phosphatase 187 H, Lactate Dehydrogenase 636, Total Creatine Kinase 56, Troponin I 0.01, NT-Pro-B Natriuret Pep 9020 H, Total Protein 6.7, Albumin 3.8, Globulin 2.9, Albumin/Globulin Ratio 1.3 06/15/17 01:20: pO2 33, VBG pH 7.30 L, VBG pCO2 62.0 H, VBG HCO3 30.5 H, VBG Total CO2 32.4 H, VBG O2 Sat (Calc) 66.5 H, VBG Base Excess 2.4 H, VBG Potassium 4.0, Sodium 138.0, Chloride 102.0, Glucose 106 H, Lactate 1.1, FiO2 21.0, Venous Blood Potassium 4.0 06/15/17 01:20: PT 11.5, INR 1.01, APTT 32.5 06/15/17 01:20: WBC 6.0, RBC 4.22, Hgb 12.2, Hct 39.9, MCV 94.5, MCH 28.9, MCHC 30.6 L, RDW 14.8 H, Plt Count 165, MPV 10.7, Gran % 70.4 H, Lymph % (Auto) 19.9 L, [place] % (Auto) 7.9 H, Eos % (Auto) 1.3 L, Baso % (Auto) 0.5, Gran # 4.25, Lymph # 1.2, [place] # 0.5, Eos # 0.1, Baso # 0.03 - RAD Interpretation Radiology Orders: 06/15/17 01:01 CHEST PORTABLE [RAD] Stat - EKG Interpretation EKG Interpretation (Text): 06/15/17 04:49 a fib rate 117 nssts changes - Medication Orders Current Medication Orders: Acetaminophen (Tylenol 325mg Tab) 650 mg PO Q4H PRN PRN Reason: Pain, Mild (1-3) Albuterol/Ipratropium (Duoneb 3 Mg/0.5 Mg (3 Ml) Ud) 3 ml IH Q4H PRN PRN Reason: Wheezing Discontinued Medications Albuterol/Ipratropium (Duoneb 3 Mg/0.5 Mg (3 Ml) Ud) 3 ml IH STAT STA Stop: 06/15/17 01:03 Last Admin: 06/15/17 01:33 Dose: 3 ml Diltiazem HCl (Cardizem) 20 mg IVP STAT STA Stop: 06/15/17 01:03 Last Admin: 06/15/17 01:33 Dose: 20 mg IVP Administration Document 06/15/17 01:33 SS (Rec: 06/15/17 01:33 [id number] Charges for Administration # of IVP Administrations 1 MAR Pulse and Blood Pressure Document 06/15/17 01:33 SS (Rec: 06/15/17 01:33 [id number] Pulse Pulse Rate (60-90) 117 Blood Pressure Blood Pressure (100/60-150/90) 140/108 Furosemide (Lasix) 20 mg IVP ONCE ONE Stop: 06/15/17 02:10 Last Admin: 06/15/17 02:28 Dose: 20 mg MAR Blood Pressure Document 06/15/17 02:28 SS (Rec: 06/15/17 02:28 [id number] Blood Pressure Blood Pressure (100/60-150/90) 116/58 IVP Administration Document 06/15/17 02:28 SS (Rec: 06/15/17 02:28 [id number][facility] Charges for Administration # of IVP Administrations 1 - Scribe Statement The provider has reviewed the documentation as recorded by the Scribe Darlene Richey. All medical record entries made by the Scribe were at my direction and personally dictated by me. I have reviewed the chart and agree that the record accurately reflects my personal performance of the history, physical exam, medical decision making, and the department course for this patient. I have also personally directed, reviewed, and agree with the discharge instructions and disposition. Disposition/Present on Arrival - Present on Arrival Any Indicators Present on Arrival: No History of DVT/PE: No History of Uncontrolled Diabetes: No Urinary Catheter: No History of Decub. Ulcer: No History Surgical Site Infection Following: None - Disposition Have Diagnosis and Disposition been Completed?: Yes Diagnosis: Congestive heart failure (CHF) Disposition: HOSPITALIZED Disposition Time: 02:00 Condition: FAIR
[2017-06-15 01:37] LABS: VENOUS BLOOD GAS BASE EXCESS 2.4 mmol/L (0.0-2.0); VENOUS BLOOD GAS PO2 33 mm/Hg (30-55)
[2017-06-15 01:39] LABS: BASO # 0.03 K/mm3 (0.0-2.0); BASO % 0.5 % (0.0-3.0); EOS # 0.1 (0.0-0.7); EOS % 1.3 % (1.5-5.0); GRAN # 4.25 (1.4-6.5); GRAN % 70.4 % (50.0-68.0); HEMOGLOBIN 12.2 g/dL (12.0-16.0); LYMPH # 1.2 (1.2-3.4); LYMPH % 19.9 % (22.0-35.0); MEAN CELL VOLUME 94.5 fl (80.0-105.0); MEAN CORPUSCULAR HEMOGLOBIN 28.9 pg (25.0-35.0); MEAN CORPUSCULAR HGB CONC 30.6 g/dl (31.0-37.0); MEAN PLATELET VOLUME 10.7 fl (7.0-11.0); MONO # 0.5 (0.1-0.6); MONO % 7.9 % (1.0-6.0); RBC 4.22 10^6/uL (3.5-6.1); RED CELL DISTRIBUTION WIDTH 14.8 % (11.5-14.5)
[2017-06-15 01:46] LABS: INR 1.01 (0.93-1.08); PARTIAL THROMBOPLASTIN TIME 32.5 Seconds (25.1-36.5); PROTHROMBIN TIME 11.5 SECONDS (9.4-12.5)
[2017-06-15 01:55] LABS: ALB/GLOB RATIO 1.3 (1.1-1.8); ALBUMIN 3.8 g/dL (3.0-4.8); ALT/SGPT 28 U/L (7-56); AST/SGOT 55 U/L (14-36); BLOOD UREA NITROGEN 11 mg/dL (7-21); CALCIUM 9.3 mg/dL (8.4-10.5); GFR AFRICAN-AMERICAN > 60; GFR NON-AFRICAN AMERICAN 59
[2017-06-15 02:05] LABS: B-TYPE NATRIURETIC PEPTIDE 9020 pg/mL (0-450); TROPONIN I 0.01 ng/mL
[2017-06-15] MEDS ORDERED: Albuterol-Ipratrop 3 mg / 0.5 (3 ml) UD IH PRN (02:13)
--- NOTE | 2017-06-15 08:45 | RAD ---
HISTORY: sob COMPARISON: 11/16/2016 FINDINGS: LUNGS: Minimal bibasilar infiltrates and effusions are seen. PLEURA: Small effusions CARDIOVASCULAR: Normal. OSSEOUS STRUCTURES: Sternal wires VISUALIZED UPPER ABDOMEN: Normal. OTHER FINDINGS: None. IMPRESSION: Minimal bibasilar infiltrates and effusions
--- NOTE | 2017-06-15 09:59 | CARD ---
APPROVED REPORT EKG Measurement Heart [id number] <Conclusion> Atrial fibrillation with rapid ventricular response Minimal voltage criteria for LVH, may be normal variant Abnormal ECG
--- NOTE | 2017-06-15 10:04 | CARD ---
APPROVED REPORT EKG Measurement Heart [id number] <Conclusion> Atrial fibrillation with rapid ventricular response Abnormal ECG
[2017-06-15 13:36] VITALS: BMI 21.2
[2017-06-15] MEDS ORDERED: Influenza Vaccine 60 mcg/0.5 mL SYR (4YR UP) IM ONE (13:36)
[2017-06-15] MEDS ORDERED: Pneumococcal 23-Valent Vaccine IM ONE (13:36)
--- NOTE | 2017-06-15 13:47 | CARD ---
APPROVED REPORT EKG Measurement Heart [id number] <Conclusion> Atrial fibrillation
[2017-06-15] MEDS: Fluticasone Nasal 50 mcg/Spray NS SCH (14:06)
[2017-06-15] MEDS: Metoprolol Succinate 50 mg XL Tab PO SCH (14:08)
[2017-06-15 18:53] VITALS: RESP 18
--- NOTE | 2017-06-15 21:38 | CON ---
DATE: 06/15/2017 REQUESTING PHYSICIAN: Dr. Cheatham. REASON FOR CONSULTATION: Dyspnea. HISTORY: This is an 86-year-old woman, known to us from prior admissions, who presents to the emergency room with worsening dyspnea and palpitations last evening. She has a history of paroxysmal atrial fibrillation. She has undergone prior bypass surgery and mitral valve replacement in the past. Echocardiogram last year revealed normal LV function with a normally functioning prosthetic mitral valve as well as moderate tricuspid regurgitation. She was treated with antibiotics and IV Lasix in the emergency room and feels significantly better. She complains of a good deal of nasal congestion. She denies any chest pain. She does have a history of hypertension and COPD. She has undergone prior bypass surgery and valve replacement as mentioned. MEDICATIONS: Her medications at home reportedly include Lipitor, Toprol-XL, aspirin, ramipril, albuterol, and Xanax. ALLERGIES: NONE. SOCIAL HISTORY: She does not smoke or drink. FAMILY HISTORY: Unremarkable. REVIEW OF SYSTEMS: Ten-point review of systems is otherwise unremarkable. PHYSICAL EXAMINATION: GENERAL: She is a fairly frail appearing very elderly woman. VITAL SIGNS: Her blood pressure is 136/80 with a pulse of 90 and irregularly regular, respirations are 14. She is currently afebrile. HEENT: Normocephalic, atraumatic. NECK: Supple. No JVD noted. CHEST: Bilateral coarse rhonchi and scattered rales noted. HEART: PMI displaced laterally with systolic murmur at the lower left sternal border. ABDOMEN: Soft, nontender, normoactive bowel sounds. EXTREMITIES: No edema. DIAGNOSTIC DATA: White count 6.0, hemoglobin/hematocrit of 12.2/39.9 with the platelet count of 165,000. PT/PTT are normal. Potassium 4.0, BUN and creatinine are 11 and 0.9, BNP 9020. Troponin 0.01. Electrocardiogram reveals atrial fibrillation with rapid ventricular response, nonspecific ST abnormalities. Chest x-ray reveals post sternotomy changes, bibasilar congestion and/or infiltrates were noted. IMPRESSION: 1. Probable bronchitis and sinusitis. 2. Mildly decompensated congestive heart failure, likely due to diastolic dysfunction in the setting of respiratory illness. 3. Paroxysmal atrial fibrillation, not currently on anticoagulation, reason for that is unclear at present. We will just contact Dr. Colunga regarding this. She had previously been advised Eliquis use, but is not currently taking this. We will be happy to follow her through hospital course and make further recommendations as appropriate. Silverio Vickers MD [facility] # [id number]
--- NOTE | 2017-06-15 22:34 | CP.PCM.PN ---
Subjective - Date & Time of Evaluation Date of Evaluation: 06/15/17 Time of Evaluation: 22:32 - Subjective Subjective: S:Xanax was requested. Current xanax order was discontinued. Patient is anxious , has no other complaints. Medical record was reviewed. O: Last Vital Signs 3 Temp 98.1 F 06/15/17 18:51 Pulse 96 H 06/15/17 18:51 Resp 18 06/15/17 18:51 BP 124/86 06/15/17 18:51 Pulse Ox 95 06/15/17 18:51 Awake, alert, not in distress. LUNGS: Normal breathing pattern. A:Anxiety. P: Xanax 0.25 mg PO x 1/ Objective - Vital Signs/Intake and Output Vital Signs (last 24 hours): Temp Pulse Resp BP Pulse Ox 98.1 F 96 H 18 124/86 95 06/15/17 18:51 06/15/17 18:51 06/15/17 18:51 06/15/17 18:51 06/15/17 18:51 - Medications Medications: Current Medications Acetaminophen (Tylenol 325mg Tab) 650 mg PO Q4H PRN PRN Reason: Pain, Mild (1-3) Last Admin: 06/15/17 06:14 Dose: 650 mg Albuterol/Ipratropium (Duoneb 3 Mg/0.5 Mg (3 Ml) Ud) 3 ml IH Q4H PRN PRN Reason: Wheezing Alprazolam (Xanax) 0.25 mg PO STAT STA PRN Reason: Protocol Stop: 06/15/17 22:32 Aspirin (Aspirin Chewable) 81 mg PO DAILY [facility] Last Admin: 06/15/17 17:35 Dose: 81 mg Atorvastatin Calcium (Lipitor) 20 mg PO DIN [facility] Last Admin: 06/15/17 18:07 Dose: 20 mg Fluticasone Propionate (Flonase) 1 actuation NS DAILY [facility] Last Admin: 06/15/17 14:06 Dose: 1 spray Furosemide (Lasix) 40 mg IVP DAILY [facility] Last Admin: 06/15/17 09:56 Dose: 40 mg Metoprolol Succinate (Toprol Xl) 50 mg PO DAILY [facility] Last Admin: 06/15/17 14:08 Dose: 50 mg - Labs Labs: PT 11.5 SECONDS (9.4-12.5) 06/15/17 01:20 INR 1.01 (0.93-1.08) 06/15/17 01:20 APTT 32.5 Seconds (25.1-36.5) 06/15/17 01:20
--- NOTE | 2017-06-16 03:57 | HP ---
HISTORY OF PRESENT ILLNESS: This is an 86-year-old female who is coming to the hospital because of shortness of breath. She has a past medical history of atrial fibrillation, not on anticoagulation secondary to breathing issues, dyslipidemia, coronary artery disease, hypertension, and COPD. The patient says that she has been having worsening shortness of breath. She says that she has no chest pain. No abdominal pain and no back pain. No dysuria or frequency. No nocturia. No weakness in the arms and the legs. No dizziness. PAST MEDICAL HISTORY: Hypertension, coronary artery disease, sinusitis, COPD, and atrial fibrillation. FAMILY HISTORY: Noncontributory. REVIEW OF SYSTEMS: All of the review of symptoms are within normal limits except that was mentioned. She is also complaining of congestion in her nose. ALLERGIES: NO KNOWN DRUG ALLERGIES. HOME MEDICATIONS: She does not remember. According to the notes that I have reviewed, the patient has been Lipitor, Toprol, Xanax, primidone, aspirin, . PHYSICAL EXAMINATION: VITAL SIGNS: Temperature is 98.2, pulse of 103, blood pressure 111/73, respirations 18, O2 saturation 98%, height is 4 feet 11 inches, weight 105 pounds, and BMI is 21.2. GENERAL: The patient lying in bed, uncomfortable, and in no acute distress. HEENT: Atraumatic and normocephalic. Anicteric sclerae. Moist mucosa. Hessmer conjunctivae. No oral lesions. NECK: No JVD, anterior and posterior adenopathy, thyromegaly, or bruits. CARDIOVASCULAR: S1 and S2 regular. No murmur, rubs, or gallop. LUNGS: Clear to auscultation bilaterally. No wheezes, rales, or rhonchi. ABDOMEN: Bowel sounds are positive. Soft, nontender and nondistended. No hepatosplenomegaly. No rebound and no guarding. EXTREMITIES: No cyanosis, clubbing, or edema. NEUROLOGIC: No facial asymmetry. Tongue is midline. No uvula deviation. Power is 5/5 upper extremity and lower extremity. Sensation intact in upper extremity and lower extremity. PSYCHIATRIC: She is awake, alert and oriented x3. No anxiety or depression. She has normal affect. GENITOURINARY: No CVA tenderness. VASCULAR: 2+ pulses in the carotid pulses and pedal pulses. SKIN: No erythema or nodules SPINE: Shows normal curvature. LABORATORY DATA: White count 6.0, hemoglobin 12.2. INR is 1.0. VBG shows pH of 7.3, pCO2 of 62, bicarb of 27. AST and ALT 55 and 28, albumin is 3.8. Chest x-ray done shows minimal bibasilar infiltrates. EKG done shows atrial fibrillation with rapid rate of 106. ASSESSMENT: 1. Atrial fibrillation with rapid rate. 2. Dyslipidemia. 3. Coronary artery disease. 4. Hypertension. 5. Chronic obstructive pulmonary disease. 6. Coronary artery disease status post coronary artery bypass graft. 7. Status post prosthetic mitral valve. 8. Moderate tricuspid regurgitation. PLAN: The patient is admitted to the hospital. She is going to be on beta-blockers for control of her heart rate. She is going to be seen by Dr. Vickers. The patient is going to continue with her metoprolol. She has a history coronary artery bypass graft, will need to be on aspirin. The patient is going to be on Flonase because of her congestion. She is given a dose of Lasix for congestive heart failure secondary to systolic dysfunction. The patient's last echocardiogram was in August 2016 that I reviewed from the old records. Her ejection fraction was normal at that time and has a prosthetic mitral valve that appears normal. The patient is on a heart healthy diet. We will also get Physical Therapy to evaluate the patient to see if she qualifies for the transitional care unit. Wilfred Cheatham MD
[2017-06-16 06:16] VITALS: TEMP 97.7; O2SAT 97
[2017-06-16 07:30] LABS: HEMOGLOBIN 11.3 g/dL (12.0-16.0); MEAN CORPUSCULAR HEMOGLOBIN 28.3 pg (25.0-35.0); MEAN CORPUSCULAR HGB CONC 30.5 g/dl (31.0-37.0); MEAN PLATELET VOLUME 10.4 fl (7.0-11.0); RBC 3.99 10^6/uL (3.5-6.1); RED CELL DISTRIBUTION WIDTH 14.5 % (11.5-14.5); WHITE BLOOD COUNT 6.4 10^3/ul (4.5-11.0)
--- NOTE | 2017-06-16 08:10 | CP.PCM.PN ---
Subjective - Date & Time of Evaluation Date of Evaluation: 06/16/17 Time of Evaluation: 07:00 - Subjective Subjective: Stable on 2R. No CP or SOB. V/S noted. RSR PE: Lungs: rhonchi Cor.: S1S2, sys. murmur Abd.: soft Ext.: no edema Neuro.: alert I/O= 120/825 recorded Labs noted BC x2 NG at 24 hrs. Objective - Vital Signs/Intake and Output Vital Signs (last 24 hours): Temp Pulse Resp BP Pulse Ox 97.7 F 89 18 110/79 97 06/16/17 06:00 06/16/17 06:00 06/16/17 06:00 06/16/17 06:00 06/16/17 06:00 Intake and Output: 06/16/17 06/16/17 06:59 18:59 Intake Total 120 Balance 120 - Medications Medications: Current Medications Acetaminophen (Tylenol 325mg Tab) 650 mg PO Q4H PRN PRN Reason: Pain, Mild (1-3) Last Admin: 06/15/17 06:14 Dose: 650 mg Albuterol/Ipratropium (Duoneb 3 Mg/0.5 Mg (3 Ml) Ud) 3 ml IH Q4H PRN PRN Reason: Wheezing Aspirin (Aspirin Chewable) 81 mg PO DAILY [facility] Last Admin: 06/15/17 17:35 Dose: 81 mg Atorvastatin Calcium (Lipitor) 20 mg PO DIN [facility] Last Admin: 06/15/17 18:07 Dose: 20 mg Fluticasone Propionate (Flonase) 1 actuation NS DAILY [facility] Last Admin: 06/15/17 14:06 Dose: 1 spray Furosemide (Lasix) 40 mg IVP DAILY [facility] Last Admin: 06/15/17 09:56 Dose: 40 mg Metoprolol Succinate (Toprol Xl) 50 mg PO DAILY [facility] Last Admin: 06/15/17 14:08 Dose: 50 mg - Labs Labs: 06/16/17 07:00 PT 11.5 SECONDS (9.4-12.5) 06/15/17 01:20 INR 1.01 (0.93-1.08) 06/15/17 01:20 APTT 32.5 Seconds (25.1-36.5) 06/15/17 01:20 Assessment and Plan - Assessment and Plan (Free Text) Assessment: Dyspnea, Palpitations PAF CHF/DD CAD/CABG/MVR HBP Echo 09/13: Nl LV fx, Nl prosthetic MV, moderate TR, mild/moderate PH Cataracts Plan: IV > PO Lasix Continue metoprolol Resume ramipril 5 /day Resume Eliquis 2.5 BID OOB as germain.
[2017-06-16 08:29] LABS: ALB/GLOB RATIO 1.2 (1.1-1.8); ALBUMIN 3.3 g/dL (3.0-4.8); ALT/SGPT 28 U/L (7-56); AST/SGOT 36 U/L (14-36); BLOOD UREA NITROGEN 16 mg/dL (7-21); CALCIUM 8.8 mg/dL (8.4-10.5); GFR AFRICAN-AMERICAN > 60; GFR NON-AFRICAN AMERICAN 53
--- NOTE | 2017-06-16 10:16 | DS ---
HISTORY OF PRESENT ILLNESS: This is an 86-year-old female who had come in to the hospital because of shortness of breath. She was found to have atrial fibrillation with rapid rate. She was given IV Cardizem and that helped to improve her symptoms. She is currently comfortable. Her rate is controlled. She has no complaints of any chest pain and no shortness of breath. No headaches or dizziness. She is complaining of nasal congestion and I placed her on Flonase. She able to get better. PHYSICAL EXAMINATION: VITAL SIGNS: Temperature is 97.7, pulse of 89, blood pressure of 110/79, and respirations of 18. GENERAL: The patient is lying in bed, flat, comfortable. HEENT: No oral lesion. Anicteric sclerae. Moist mucosa. NECK: No JVD, adenopathy, or thyromegaly. CARDIOVASCULAR: S1 and S2, irregular. No murmurs, rubs, or gallops. LUNGS: Clear to auscultation bilaterally. No wheeze, rales, or rhonchi. ABDOMEN: Bowel sounds are positive, soft, nontender and nondistended. EXTREMITIES: No cyanosis, clubbing or edema. ASSESSMENT: 1. Atrial fibrillation with rapid rate. 2. Dyslipidemia. 3. Coronary artery disease. 4. Hypertension. 5. Chronic obstructive pulmonary disease. 6. Coronary artery disease status post coronary artery bypass graft. 7. Status post prosthetic mitral valve. 8. Moderate tricuspid regurgitation. PLAN: The patient is on ramipril for hypertension and she is going to continue with aspirin. The patient is on Eliquis for anticoagulation. The patient is going to continue with Lipitor for dyslipidemia. I did speak to the patient's son Balbir to give an update on the patient's diagnosis and plan of care. The patient is going to be discharged home. Follow with Dr. Friedman as an outpatient. CONDITION: Stable. ACTIVITY: Increase as tolerated. Wilfred Cheatham MD
[2017-06-16] MEDS: Metoprolol Succinate 50 mg XL Tab PO SCH (10:24)
[2017-06-16] MEDS: Fluticasone Nasal 50 mcg/Spray NS SCH (10:26)
[2017-06-16 10:29] VITALS: BP 116/85; PULSE 94
== END 2017-06-16 13:13 | disposition home or self-care (01) | DRG 293 ==
LOC: ED 00:40 → ERH 02:10 → OBSVTOIN 18:06 → 3RSO 18:36
PROVIDERS: ADMIT Internal Medicine Nephrology; ATTEND Internal Medicine Nephrology
DX: I11.0 Hypertensive heart disease with heart failure (principal); J44.9 Chronic obstructive pulmonary disease, unspecified; I48.0 Paroxysmal atrial fibrillation; I07.1 Rheumatic tricuspid insufficiency; I25.10 Atherosclerotic heart disease of native coronary artery without angina pectoris; I50.33 Acute on chronic diastolic (congestive) heart failure; K21.9 Gastro-esophageal reflux disease without esophagitis; E78.5 Hyperlipidemia, unspecified; F41.9 Anxiety disorder, unspecified; H26.9 Unspecified cataract; Z90.49 Acquired absence of other specified parts of digestive tract; Z95.1 Presence of aortocoronary bypass graft; Z95.2 Presence of prosthetic heart valve; R40.2412 Glasgow coma scale score 13-15, at arrival to emergency department; J32.9 Chronic sinusitis, unspecified

== ENCOUNTER 2017-07-17 17:35 | Inpatient (IN) | payer MEDICARE ==
[2017-07-17] MEDS ORDERED: Albuterol-Ipratrop 3 mg / 0.5 (3 ml) UD IH STA (18:57)
[2017-07-17] MEDS ORDERED: Albuterol 0.083% Inhal Sol (2.5 mg/3 mL) UD INH STA (18:57)
--- NOTE | 2017-07-17 19:01 | ED PDOC ---
Arrival/HPI - General Chief Complaint: Shortness Of Breath Time Seen by Provider: 07/17/17 18:52 Historian: Patient - History of Present Illness Narrative History of Present Illness (Text): 07/17/17 18:59 86 year old female, with past medical history of CAD, COPD, hypertension and A- fib, presents to the Emergency department complaining of COPD exacerbation since this morning. Patient informs worsening shortness of breath associated with productive cough since onset. Patient informs taking nebulizer with no improvement to symptoms. Patient denies any fever, chills, nausea, vomiting, diarrhea, abdominal pain, chest pain or any other complaints. Time/Duration: 24 hours Symptom Onset: Gradual Symptom Course: Unchanged Activities at Onset: Light Context: Home Past Medical History - Provider Review Nursing Documentation Reviewed: Yes - Infectious Disease Hx of Infectious Diseases: None - Tetanus Immunization Tetanus Immunization: Unknown - Cardiac Hx Cardiac Disorders: Yes Hx Cardiac Arrhythmia: Yes Hx Hypertension: Yes Hx Peripheral Edema: Yes (none today) Other/Comment: open heart Pt stated "When I was very young." - Pulmonary Hx Bronchitis: Yes Hx Chronic Obstructive Pulmonary Disease (COPD): Yes Other/Comment: has not used home nebulizer machine in 1 yr - HEENT Hx HEENT Disorder: (post nasal drip) Hx Cataracts: Yes (Bilateral surgery) - Integumentary Hx Dermatological Disorder: Yes Other/Comment: dry skin ble, light brown moles over back, chest, abd, varicose veins, smallcut to r 2nd toe from scissor when "I was cutting my toenails" pt stated, thick hard toenails to both great toes, mid chest scar from open heart sx - Musculoskeletal/Rheumatological Hx Falls: No Hx Unsteady Gait: Yes (cane when out) Other/Comment: chronic b/l leg and hand cramps - Gastrointestinal Hx Gastrointestinal Disorders: Yes (weight loss, appetite ok) Hx Diverticulitis: Yes Hx Gastroesophageal Reflux: Yes - Genitourinary/Gynecological Hx Genitourinary Disorders: Yes Hx Incontinence: Yes (with coughing) - Psychiatric Hx Depression: No Hx Emotional Abuse: No Hx Physical Abuse: No Hx Substance Use: No - Surgical History Hx Cholecystectomy: Yes Hx Open Heart Surgery: Yes - Anesthesia Hx Anesthesia Reactions: No Hx Malignant Hyperthermia: No - Suicidal Assessment Feels Threatened In Home Enviroment: No Family/Social History - Physician Review Nursing Documentation Reviewed: Yes Family/Social History: Unknown Family HX Smoking Status: Never Smoked Hx Alcohol Use: No Hx Substance Use: No Hx Substance Use Treatment: No Allergies/Home Meds Allergies/Adverse Reactions: Allergies No Known Allergies Allergy (Verified 07/17/17 18:15) Home Medications: Home Meds Medication Instructions Recorded Confirmed ALPRAZolam [Xanax] 0.25 mg PO BID 06/15/17 06/16/17 Atorvastatin [Lipitor] 20 mg PO DAILY 06/15/17 06/15/17 Metoprolol Succinate [Toprol XL] 50 mg PO DAILY 06/15/17 06/16/17 Omeprazole Magnesium [Prilosec Otc] 20 mg PO BID 06/15/17 06/15/17 Primidone [Mysoline] 50 mg PO DAILY 06/15/17 06/15/17 Ramipril [Altace] 5 mg PO DAILY 06/15/17 06/16/17 amLODIPine [Norvasc] 5 mg PO DAILY 06/15/17 06/15/17 Review of Systems - Physician Review All systems were reviewed & negative as marked: Yes - Review of Systems Constitutional: Normal. absent: Fevers Eyes: Normal ENT: Normal Respiratory: SOB, Cough Cardiovascular: Normal. absent: Chest Pain Gastrointestinal: Normal. absent: Abdominal Pain, Diarrhea, Nausea, Vomiting Genitourinary Female: Normal Musculoskeletal: Normal Skin: Normal Neurological: Normal Endocrine: Normal Hemo/Lymphatic: Normal Psychiatric: Normal Physical Exam Vital Signs Reviewed: Yes Vital Signs Temp Pulse Resp BP Pulse Ox 07/17/17 20:32 133 H 21 115/77 94 L 07/17/17 18:50 21 92 L 07/17/17 18:08 98.0 F 132 H 18 110/73 93 L Temperature: Afebrile Blood Pressure: Normal Pulse: Tachycardic Respiratory Rate: Normal Appearance: Positive for: Well-Appearing, Non-Toxic, Comfortable Pain Distress: None Mental Status: Positive for: Alert and Oriented X 3 - Systems Exam Head: Present: Atraumatic, Normocephalic Pupils: Present: PERRL Extroacular Muscles: Present: EOMI Conjunctiva: Present: Normal Mouth: Present: Moist Mucous Membranes Neck: Present: Normal Range of Motion Respiratory/Chest: Present: Good Air Exchange, Wheezes. No: Respiratory Distress, Accessory Muscle Use Cardiovascular: Present: Regular Rate and Rhythm, Normal S1, S2. No: Murmurs Abdomen: Present: Normal Bowel Sounds. No: Tenderness, Distention, Peritoneal Signs Back: Present: Normal Inspection Upper Extremity: Present: Normal Inspection. No: Cyanosis, Edema Lower Extremity: Present: Normal Inspection. No: Edema Neurological: Present: GCS=15, CN II-XII Intact, Speech Normal Skin: Present: Warm, Dry, Normal Color. No: Rashes Psychiatric: Present: Alert, Oriented x 3, Normal Insight, Normal Concentration Medical Decision Making ED Course and Treatment: 07/17/17 19:03 Impression: 86 year old female presents to the Emergency department for COPD exacerbation. Plan: -- VBG -- Labs -- EKG -- Chest X-ray -- Albuterol -- Solumedrol -- Blood Culture -- Reassess and disposition Progress Notes: 07/17/17 20:30 Chest X-ray reviewed, shows no significant change from previous X-ray performed on 06/15/17. However, significant pleural effusion on the right lung is evident now. Will order CT of chest to confirm finding. Case discussed with Dr. Matias, who is aware and agrees with plan, admits patient to Med Surg under his serivce. - Lab Interpretations Lab Results: 07/17/17 19:20 07/17/17 19:20 Lab Results 07/17/17 19:20: Sodium 141, Chloride 103, Potassium 4.3, Carbon Dioxide 26, Anion Gap 16, BUN 13, Creatinine 0.8, Est GFR ( Amer) > 60, Est GFR (Non- Af Amer) > 60, Random Glucose 140 H, Calcium 9.1, Total Bilirubin 0.4, AST 33, ALT 25, Alkaline Phosphatase 157 H, Lactate Dehydrogenase 557, Total Creatine Kinase 56, Troponin I 0.02 D, Total Protein 6.1, Albumin 3.4, Globulin 2.7, Albumin/Globulin Ratio 1.3 07/17/17 19:20: PT 11.9, INR 1.04 07/17/17 19:20: WBC 7.3, RBC 3.87, Hgb 11.2 L, Hct 36.5, MCV 94.3, MCH 28.9, MCHC 30.7 L, RDW 15.5 H, Plt Count 157, MPV 10.5, Gran % 79.7 H, Lymph % (Auto) 13.2 L, [place] % (Auto) 5.9, Eos % (Auto) 0.8 L, Baso % (Auto) 0.4, Gran # 5.78, Lymph # (Auto) 1.[address] L, [place] # (Auto) 0.4, Eos # (Auto) 0.1, Baso # (Auto) 0.03 07/17/17 19:10: pO2 38, VBG pH 7.31 L, VBG pCO2 57.0, VBG HCO3 28.7 H, VBG Total CO2 30.4 H, VBG O2 Sat (Calc) 75.7 H, VBG Base Excess 1.2, VBG Potassium 4.3, Sodium 137.0, Chloride 105.0, Glucose 146 H, Lactate 1.5, FiO2 21.0, Venous Blood Potassium 4.3 - RAD Interpretation Radiology Orders: 07/17/17 18:57 CHEST PORTABLE [RAD] Stat 07/17/17 20:29 CHEST W/O CONTRAST [CT] Stat - Medication Orders Current Medication Orders: Alprazolam (Xanax) 0.25 mg PO BID PRN; Protocol PRN Reason: Agitation Stop: 07/25/17 10:01 Amlodipine Besylate (Norvasc) 5 mg PO DAILY [facility] Atorvastatin Calcium (Lipitor) 20 mg PO HS [facility] Metoprolol Succinate (Toprol Xl) 50 mg PO DAILY [facility] Primidone (Mysoline) 50 mg PO DAILY [facility] Ramipril (Altace) 5 mg PO DAILY [facility] Discontinued Medications Albuterol Sulfate (Albuterol 0.083% Inhal Brooke (2.5 Mg/3 Ml) Ud) 5 mg INH STAT STA Stop: 07/17/17 18:58 Last Admin: 07/17/17 19:12 Dose: 5 mg Albuterol/Ipratropium (Duoneb 3 Mg/0.5 Mg (3 Ml) Ud) 3 ml IH STAT STA Stop: 07/17/17 18:58 Last Admin: 07/17/17 19:40 Dose: 3 ml Levofloxacin/Dextrose (Levaquin 750mg) 750 mg IVPB ONCE ONE Stop: 07/17/17 20:31 Last Admin: 07/17/17 20:39 Dose: 750 mg eMAR Start Stop Document 07/17/17 20:39 HARESH (Rec: 07/17/17 20:40 HARESH [id number]) Intravenous Solution Start Date 07/17/17 Start Time 20:40 Methylprednisolone (Solu-Medrol) 125 mg IVP STAT STA Stop: 07/17/17 18:58 Last Admin: 07/17/17 19:13 Dose: 125 mg IVP Administration Document 07/17/17 19:13 HARESH (Rec: 07/17/17 19:13 HARESH [id number]) Charges for Administration # of IVP Administrations 1 - PA / TELECOM ANALYST / Resident Statement MD/DO has reviewed & agrees with the documentation as recorded. - Scribe Statement The provider has reviewed the documentation as recorded by the Scribe Darlene Richey. All medical record entries made by the Lizzibtimbo were at my direction and personally dictated by me. I have reviewed the chart and agree that the record accurately reflects my personal performance of the history, physical exam, medical decision making, and the department course for this patient. I have also personally directed, reviewed, and agree with the discharge instructions and disposition. Disposition/Present on Arrival - Present on Arrival Any Indicators Present on Arrival: No History of DVT/PE: No History of Uncontrolled Diabetes: No Urinary Catheter: No History of Decub. Ulcer: No History Surgical Site Infection Following: None - Disposition Have Diagnosis and Disposition been Completed?: Yes Diagnosis: Recurrent right pleural effusion, COPD exacerbation Disposition: HOSPITALIZED Disposition Time: 22:08 Patient Plan: Admission Condition: GOOD
[2017-07-17 19:31] LABS: VENOUS BLOOD GAS BASE EXCESS 1.2 mmol/L (0.0-2.0); VENOUS BLOOD GAS PO2 38 mm/Hg (30-55); VENOUS BLOOD PH 7.31 (7.32-7.43)
[2017-07-17 19:46] LABS: BASO # 0.03 K/mm3 (0.0-2.0); BASO % 0.4 % (0.0-3.0); EOS # 0.1 (0.0-0.7); EOS % 0.8 % (1.5-5.0); GRAN # 5.78 (1.4-6.5); GRAN % 79.7 % (50.0-68.0); HEMOGLOBIN 11.2 g/dL (12.0-16.0); LYMPH % 13.2 % (22.0-35.0); MEAN CELL VOLUME 94.3 fl (80.0-105.0); MEAN CORPUSCULAR HEMOGLOBIN 28.9 pg (25.0-35.0); MEAN CORPUSCULAR HGB CONC 30.7 g/dl (31.0-37.0); MEAN PLATELET VOLUME 10.5 fl (7.0-11.0); MONO # 0.4 (0.1-0.6); MONO % 5.9 % (1.0-6.0); RBC 3.87 10^6/uL (3.5-6.1); RED CELL DISTRIBUTION WIDTH 15.5 % (11.5-14.5); WHITE BLOOD COUNT 7.3 10^3/ul (4.5-11.0)
[2017-07-17 19:48] LABS: ALB/GLOB RATIO 1.3 (1.1-1.8); ALBUMIN 3.4 g/dL (3.0-4.8); ALT/SGPT 25 U/L (7-56); AST/SGOT 33 U/L (14-36); BLOOD UREA NITROGEN 13 mg/dL (7-21); CALCIUM 9.1 mg/dL (8.4-10.5); GFR AFRICAN-AMERICAN > 60; GFR NON-AFRICAN AMERICAN > 60; INR 1.04 (0.93-1.08); PROTHROMBIN TIME 11.9 SECONDS (9.4-12.5)
[2017-07-17 19:59] LABS: TROPONIN I 0.02 ng/mL
[2017-07-17] MEDS ORDERED: levoFLOXacin 750 mg in D5W 150 ML BAG IVPB ONE (20:30)
--- NOTE | 2017-07-18 00:11 | CT ---
EXAM: CT Chest Without Intravenous Contrast CLINICAL HISTORY: 86 years old, female; Signs and symptoms; Shortness of breath; Prior surgery; Surgery type: Open heart; Additional info: ? Large right pleural effusion TECHNIQUE: Axial computed tomography images of the chest without intravenous contrast. All CT scans at this facility use one or more dose reduction techniques, viz.: automated exposure control; ma/kV adjustment per patient size (including targeted exams where dose is matched to indication; i.e. head); or iterative reconstruction technique. Coronal and sagittal reformatted images were created and reviewed. COMPARISON: CT - ANGIO CHEST PE PROTOCOL 2016-09-09 06:28 FINDINGS: Limitations: Motion artifact - mild to moderate. Lungs: Mild compressive atelectasis left lower lobe. Moderate compressive atelectasis right middle, right lower lobes. Mild interlobular septal thickening. Pleural space: Moderate to large right pleural effusion. Small to moderate left pleural effusion. No pneumothorax. Heart: Mild cardiomegaly. No significant pericardial effusion. Coronary artery/valvular calcifications. Valve replacement. Mediastinum: Small to moderate hiatal hernia. Bones/joints: Few calcifications/intra-articular bodies about left shoulder. Median sternotomy. Degenerative changes of spine. Mild endplate deformities T5, T8 vertebral bodies, chronic. Soft tissues: Unremarkable. Vasculature: Moderate to extensive atherosclerotic disease. No aneurysm. Lymph nodes: No pathologically enlarged lymph nodes. Gallbladder and bile ducts: Cholecystectomy. Kidneys and ureters: Atrophy of left kidney. Probable LEFT renal cyst. IMPRESSION: 1. Bilateral pleural effusions, RIGHT > LEFT. 2. Probable interstitial edema. Clinical correlation is needed. 3. RML, RLL, LLL compressive atelectasis. Superimposed pneumonia not entirely excluded. 4. Incidental/non-acute findings are described above.
--- NOTE | 2017-07-18 09:14 | RAD ---
HISTORY: Exacerbation COPD COMPARISON: 06/15/2017 FINDINGS: LUNGS: No active pulmonary disease. PLEURA: There is a large right-sided pleural effusion and a small left effusion CARDIOVASCULAR: Normal. OSSEOUS STRUCTURES: No significant abnormalities. VISUALIZED UPPER ABDOMEN: Normal. OTHER FINDINGS: None. IMPRESSION: There is a large right-sided pleural effusion and a small left effusion
[2017-07-18] MEDS: Budesonide 0.5 mg/2 ml Inhal Susp UD IH SCH ×2 (09:54→23:02)
--- NOTE | 2017-07-18 10:05 | CARD ---
APPROVED REPORT EKG Measurement Heart [id number] <Conclusion> SVT at 130 BPM, possible A. Fib NSSTW changes
[2017-07-18] MEDS: Levalbuterol 1.25 MG/3 ML Inhal Soln UD IH SCH ×3 (10:08→23:02)
[2017-07-18] MEDS: Metoprolol Succinate 50 mg XL Tab PO SCH (10:09)
[2017-07-18] MEDS ORDERED: Calcium Chloride 1000 mg/10 ml Syringe IV ONE (11:38)
--- NOTE | 2017-07-18 16:01 | CON ---
DATE: 07/18/2017 PULMONARY CONSULTATION REFERRING PHYSICIAN: Wilfred Cheatham MD REASON FOR CONSULTATION: Pleural effusion. HISTORY OF PRESENT ILLNESS: The patient is an 86-year-old female, with past medical history significant for chronic obstructive pulmonary disease, congestive heart failure, chronic pleural effusions, coronary artery disease, atrial fibrillation, who presents to [facility] with a 3-day history of worsening shortness of breath at rest, dyspnea on exertion, and cough. The patient denies significant sputum production. There is also no history of chest pain, coughing up of blood, or chest pain - made worse with deep respirations. There is no history of temperatures, chills or infectious exposure. There is no history of night sweats, weight loss or appetite change prior to the above events. No history of leg or calf pains. However, the patient does state that both her legs have been swollen over the past 3 days. No history of syncope or diaphoresis. No history of recent travel or trauma. REVIEW OF SYSTEMS: No history of nausea, vomiting or diarrhea. No acute urinary symptoms. No new neurologic or musculoskeletal complaints. Rest of the review of systems negative. ALLERGIES: NO KNOWN ALLERGIES. SOCIAL HISTORY: Positive for tobacco and negative for alcohol. FAMILY HISTORY: No inheritable diseases. HOME MEDICATIONS: Include Norvasc, Altace, Mysoline, Toprol, Flonase, Lipitor, Xanax. PHYSICAL EXAMINATION: GENERAL: The patient is not short of breath at rest. She is not using accessory muscles for breathing. VITAL SIGNS: Temperature is 98.0, pulse on the monitor is 118, respiratory rate 18, blood pressure 123/85. Oxygen saturation on nasal cannula is 98%-100%. HEENT: Normocephalic, atraumatic. No JVD. CARDIOVASCULAR: Systolic ejection murmur at the lower left sternal border. Positive S3 gallop. LUNGS: Decreased breath sounds with crackles at both lower lobes (right worse than the left). Scattered bilateral rhonchi. No wheezing. EXTREMITIES: Positive for edema. No cyanosis, no clubbing. Calves are nontender to palpation. GI: Abdomen is soft, nontender and nondistended. Bowel sounds are positive. SKIN: No acute rash. NEUROLOGIC: Limited at the present time. PERTINENT LABORATORY DATA: Chest x-ray was done and reviewed. The patient does have chronic bilateral pleural effusions. However, on the film done yesterday, there is an enlarging right pleural effusion. There is also [id number] underlying pulmonary edema. CAT scan of the chest was also done. CAT scan of the chest reveals moderate interstitial edema. There are also bilateral pleural effusions noted - right much worse than left. There is no lymphadenopathy. Complete metabolic profile: Glucose 140, alkaline phosphatase 157. Rest of the metabolic profile is within normal limits. CBC: White count 7.3, hemoglobin of 11.2, hematocrit 36.5, platelets of 157,000. IMPRESSION: 1. Recurrent congestive heart failure. 2. Enlarging right pleural effusion. 3. Chronic obstructive pulmonary disease. 4. Mild bronchospasm. 5. Rapid atrial fibrillation. PLAN: The patient presents to [facility] with a 3-day history of worsening pulmonary symptoms. I did review the chest x-ray as above. On the most current chest x-ray, there is an enlarging right pleural effusion. Again, the patient does have chronic pleural effusions. The patient does have a history of multiple admissions for congestive heart failure. I will give a stat dose of intravenous Lasix and order a B-type natriuretic peptide (not done). Cardiology evaluation with Dr. Friedman has been ordered. I would also check a repeat chest x-ray - in 1-2 days - after diuretic therapy. If there is no improvement in the chest x-ray, I would get interventional radiology involved for a thoracentesis. On physical exam, the patient is in mild bronchospasm. There is no significant alveolar-arterial gradient. Oxygen saturation on nasal cannula is 98%-100%. I will start the patient on Xopenex nebulizer treatments and inhaled steroids for now. Clinical status of the patient is certainly guarded at this point in time. Additional pulmonary intervention will be based on the above results, as well as the clinical status of the patient. I will discuss the above with Dr. Cheatham in the next few moments. Thank you very much for this pulmonary consultation. José Miguel Kerns MD [facility]
[2017-07-18 16:02] VITALS: BMI 20.2
[2017-07-18] MEDS ORDERED: Influenza Vaccine 60 mcg/0.5 mL SYR (4YR UP) IM ONE (16:02)
[2017-07-18] MEDS ORDERED: Pneumococcal 23-Valent Vaccine IM ONE (16:02)
[2017-07-18] MEDS ORDERED: Metoprolol Succinate 25 mg XL Tab PO SCH (17:00)
--- NOTE | 2017-07-18 18:40 | HP ---
HISTORY OF PRESENT ILLNESS: This is an 86-year-old female who is coming into the hospital because of difficulty with breathing. She states that she was having more difficult breathing. She has not been able to follow with her primary care doctor, Dr. Colunga. She was using a nebulizer at home. She states that she was having lower extremity swelling. She states she is feeling better after she received IV diuretic therapy. She has no complaints of any headache or dizziness. No nausea. No vomiting. No abdominal pain or back pain. No fevers or chills. She has no dysuria, no nocturia. She does get shortness of breath with exertion. REVIEW OF SYSTEMS: All other review of symptoms are within normal limits. ALLERGIES: NO KNOWN DRUG ALLERGIES. HOME MEDICATIONS: Xanax, Lipitor, Toprol, Prilosec, primidone, ramipril, Norvasc. PAST MEDICAL HISTORY: 1. Hypertension. 2. Coronary artery disease. 3. COPD. 4. Atrial fibrillation, status post mitral valve. 5. Moderate tricuspid regurgitation. SOCIAL HISTORY: She does not smoke or use drugs. FAMILY HISTORY: Noncontributory. PHYSICAL EXAMINATION: VITAL SIGNS: She has a temperature of 98, pulse of 130s, blood pressure is 123/76, respirations 18, O2 saturation 98%. Height is 4 feet 11 inches, weight is 100 pounds, BMI is 28.2. GENERAL: The patient lying in bed, uncomfortable, and in no acute distress. HEENT: Atraumatic and normocephalic. Anicteric sclerae. Moist mucosa. [place] conjunctivae. No oral lesions. NECK: No JVD, anterior and posterior adenopathy, thyromegaly, or bruits. CARDIOVASCULAR: Regular wide tachycardia. Also 3/6 systolic ejection murmur. LUNGS: Clear to auscultation bilaterally. No wheezes, rales, or rhonchi. ABDOMEN: Bowel sounds are positive. Soft, nontender and nondistended. No hepatosplenomegaly. No rebound and no guarding. EXTREMITIES: No cyanosis, clubbing, or edema. NEUROLOGIC: No facial asymmetry. Tongue is midline. No uvula deviation. Power is 5/5 upper extremity and lower extremity. Sensation intact in upper extremity and lower extremity. PSYCHIATRIC: She is awake, alert and oriented x3. No anxiety or depression. She has normal affect. GENITOURINARY: No CVA tenderness. VASCULAR: 2+ pulses in the carotid pulses and pedal pulses. SKIN: No erythema or nodules SPINE: Shows normal curvature. LABORATORY DATA: White count 7.3, hemoglobin 11.2, platelet count is 157. INR is 1.04. shows a pH of 7.3 with a pCO2 of 38. Chemistry shows sodium 141, potassium is 4.3, creatinine is 0.8, proBNP is 10,600, troponin is 0.02, albumin is 3.4. CT of the chest done, bilateral pleural effusion right greater than left. There is compressive atelectasis. EKG shows a heart rate of 130 with QTc of 467, it is a rapid AFib. Chest x-ray done shows right pleural effusion. ASSESSMENT: 1. Atrial fibrillation with rapid rate. 2. Bilateral pleural effusion right greater than left. 3. Coronary artery disease, status post coronary artery bypass grafting. 4. Dyslipidemia. 5. Hypertension. 6. Chronic obstructive pulmonary disease. 7. Status post prosthetic mitral valve. 8. Moderate tricuspid regurgitation. PLAN: The patient states she is feeling better after she received diuretic therapy. She is going to be admitted to the hospital for further evaluation. I will get Cardiology and Pulmonary see the patient. The patient is on Altace for hypertension. She is on Lipitor for dyslipidemia. She is going to be on Norvasc for hypertension. The patient is on metoprolol daily for her coronary artery disease. We will also place her on aspirin. She is getting Xopenex. We will await further inputs from the consultants. She is going to be on heart-healthy diet. I will place her on physical therapy. Wilfred Cheatham MD
--- NOTE | 2017-07-18 20:12 | CON ---
DATE: 07/18/2017 REASON FOR CONSULTATION: Shortness of breath, pleural effusions. HISTORY OF PRESENT ILLNESS: This is an 86-year-old woman known to me, admitted yesterday when she presented to the emergency room with increasing shortness of breath with cough and was found to have bilateral pleural effusions, large on the right side. This morning, she is comfortable, resting on a stretcher in the holding area of the emergency room. There is no chest pain, orthopnea, PND, syncope, presyncope, lightheadedness, dizziness, vertigo, palpitation, edema, claudication, fever, chills, hemoptysis, abdominal pain, nausea, vomiting, diarrhea, constipation, or melena. PAST MEDICAL HISTORY: Notable for COPD with recent exacerbations; she has known coronary artery disease with coronary bypass surgery and mitral valve replacement in the remote past; she has had paroxysmal atrial fibrillation, not currently on anticoagulation, echocardiography has demonstrated normal LV function with moderate tricuspid regurgitation; she has a history of hypertension; cataracts; GERD; diverticulitis. There is no history of stroke, TIA, diabetes, or gout. MEDICATIONS AT THE TIME OF ADMISSION: Include ramipril, Flonase, Lipitor, Mysoline, Norvasc, omeprazole, metoprolol, and Xanax. ALLERGIES: THERE ARE NO KNOWN MEDICATION ALLERGIES. SOCIAL HISTORY: She lives at home. She does not smoke cigarettes. She does not drink alcohol significantly. She is ambulatory, but limited. FAMILY HISTORY: Noncontributory. REVIEW OF SYSTEMS: A 10-point review of systems is otherwise unremarkable except as noted above. PHYSICAL EXAMINATION: GENERAL: She is an elderly woman, lying on a stretcher, in no acute distress. VITAL SIGNS: Heart rate is tachycardic at about 130 beats per minute, possibly sinus tachycardia, possible atrial flutter; blood pressure 123/76, respirations 18, and O2 sat 98% on nasal cannula. HEENT: Reveals no neck vein distention, thyromegaly, or carotid bruits. Mucous membranes are moist. Conjunctivae are pink. NECK: Supple. LUNGS: Lung cheung, diminished breath sounds at both bases. No wheezing or rhonchi appreciated. HEART: Revealed a rapid rhythm. Normal first and second heart sounds. ABDOMEN: Soft. Bowel sounds are present. No mass, organomegaly, tenderness, rebound, or guarding. EXTREMITIES: Revealed no cyanosis, clubbing, or edema. NEUROLOGICAL: She was awake, alert, and oriented. SKIN: Warm and dry. No rash or cellulitis. PSYCHIATRIC: Normal as to mood and affect. LABORATORY AND IMAGING: EKG demonstrates SVT at 130 beats per minute, possibly sinus tachycardia, rule out atrial flutter. No acute changes noted. CT scan of the chest is noted. There are bilateral pleural effusions, right greater than left, etc. A chest x-ray is not yet interpreted, it shows a large right and smaller left pleural effusion by my reading. White count normal, hemoglobin 11.2, hematocrit 36.5, platelet count normal. PT/INR unremarkable. Blood gases are noted. Chemistries noted and unremarkable. LFTs unremarkable. CK 56, troponin 0.02. BNP 10,600. IMPRESSION: Ana Galarza is an 86-year-old woman admitted with large right and smaller left pleural effusion in the setting of chronic obstructive pulmonary disease and supraventricular tachycardia, complaining of shortness of breath, which is improved with treatment in the emergency room. She will be admitted to a telemetry bed. I will review her old records. I will continue her current medications. I will increase metoprolol to 75 mg daily. She will have a Pulmonary evaluation and possibly a thoracentesis. We will continue amlodipine, Lipitor, aspirin, ramipril. She got Lasix. We will monitor I's and O's. Check stool for occult blood. Review her old records. I will follow along with you. I will make additional recommendations based on her clinical course. Juanjo Friedman MD [facility]
[2017-07-19] MEDS: Budesonide 0.5 mg/2 ml Inhal Susp UD IH SCH ×2 (07:31→19:55)
[2017-07-19] MEDS: Levalbuterol 1.25 MG/3 ML Inhal Soln UD IH SCH ×3 (07:31→19:55)
--- NOTE | 2017-07-19 07:38 | PN ---
DATE: 07/19/2017 SUBJECTIVE: The patient has no complaints of any chest pain. No shortness of breath. No headaches. PHYSICAL EXAMINATION: VITAL SIGNS: Temperature is 98, pulse of 123, blood pressure 130/92, respirations 18. GENERAL: The patient is lying in bed, flat, comfortable. HEENT: No oral lesion. Anicteric sclerae. Moist mucosa. NECK: No JVD, adenopathy, or thyromegaly. CARDIOVASCULAR: S1 and S2, regular. No murmurs, rubs, or gallops. LUNGS: Clear to auscultation bilaterally. No wheeze, rales, or rhonchi. ABDOMEN: Bowel sounds are positive, soft, nontender and nondistended. EXTREMITIES: No cyanosis, clubbing or edema. ASSESSMENT: 1. Atrial fibrillation with rapid rate. 2. Bilateral pleural effusion, right greater than left. 3. Coronary artery disease, status post coronary artery bypass graft. 4. Dyslipidemia. 5. Hypertension. 6. Chronic obstructive pulmonary disease. 7. Moderate tricuspid regurgitation. 8. Status post prostatic mitral valve. PLAN: The patient is in a rapid AFib. The patient's heart rate continues to be elevated. She is being followed by Dr. Friedman. The patient is on Cardizem. We are going to continue with Lipitor for dyslipidemia. She is on Norvasc for hypertension. She is going to continue metoprolol for atrial fibrillation as well. She is on Xopenex for her breathing. The patient is on a heart-healthy diet. She is being followed by Cardiology as well as Pulmonary. I started her on physical therapy. The patient was seen by physical therapy yesterday. The patient declined saying that she was too exhausted. I will also get a TCU evaluation to see if she qualifies. Wilfred Cheatham MD
--- NOTE | 2017-07-19 08:40 | CP.PCM.PN ---
Subjective - Date & Time of Evaluation Date of Evaluation: 07/19/17 Time of Evaluation: 07:00 - Subjective Subjective: Stable on 3R. No CP. Still some dyspnea with exertion and abd. bloating noted. V/S noted. AF with VR up to 117 recorded PE: Lungs: decreased BS at bases Cor: irreg S1S2, sys, murmur Abd.: soft Ext.: no edema Neuro.: alert I/O NA BC X2 NG at 24 hrs. Objective - Vital Signs/Intake and Output Vital Signs (last 24 hours): Temp Pulse Resp BP Pulse Ox 97.5 F L 117 H 22 130/92 H 94 L 07/19/17 08:11 07/19/17 08:11 07/19/17 08:11 07/19/17 08:11 07/19/17 08:11 Intake and Output: 07/19/17 07/19/17 06:59 18:59 Intake Total 120 120 Balance 120 120 - Medications Medications: Current Medications Alprazolam (Xanax) 0.25 mg PO BID PRN; Protocol PRN Reason: Agitation Stop: 07/25/17 10:01 Last Admin: 07/18/17 15:10 Dose: 0.25 mg Amlodipine Besylate (Norvasc) 5 mg PO DAILY [facility] Last Admin: 07/18/17 10:09 Dose: Not Given Aspirin (Ecotrin) 81 mg PO DAILY [facility] Last Admin: 07/18/17 10:09 Dose: 81 mg Atorvastatin Calcium (Lipitor) 20 mg PO HS [facility] Last Admin: 07/18/17 22:28 Dose: 20 mg Budesonide (Pulmicort Respules) 0.5 mg IH [id number] [facility] Last Admin: 07/19/17 07:31 Dose: 0.5 mg Diltiazem HCl (Cardizem) 60 mg PO Q8 [facility] Last Admin: 07/19/17 06:07 Dose: 60 mg Furosemide (Lasix) 40 mg IVP Q24H [facility] Levalbuterol HCl (Xopenex) 1.25 mg IH TIDRESP [facility] Last Admin: 07/19/17 07:31 Dose: 1.25 mg Metoprolol Succinate (Toprol Xl) 50 mg PO DAILY [facility] Last Admin: 07/18/17 10:09 Dose: 50 mg Metoprolol Succinate (Toprol Xl) 25 mg PO DAILY [facility] Polyethylene Glycol (Miralax) 17 gm PO BID [facility] Primidone (Mysoline) 50 mg PO DAILY [facility] Last Admin: 07/18/17 10:11 Dose: 50 mg Ramipril (Altace) 5 mg PO DAILY [facility] Last Admin: 07/18/17 10:09 Dose: 5 mg - Labs Labs: PT 11.9 SECONDS (9.4-12.5) 07/17/17 19:20 INR 1.04 (0.93-1.08) 07/17/17 19:20 Assessment and Plan - Assessment and Plan (Free Text) Assessment: Dyspnea R>L pleural effusions Severe COPD CAD/CABG/MVR/NL LV on echo with mod. TR AF HBP Plan: Continue diltiazem and metoprolol IV Lasix Thoracentesis of large right pleural effusion As per Pulm and Int. Radiology Continue tel. Monitor I/O BMP in AM OOB as germain.
[2017-07-19] MEDS: Metoprolol Succinate 50 mg XL Tab PO SCH (09:05)
[2017-07-19] MEDS: POLYETHYLENE GLYCOL 3350 17 GM/Dose PACKET PO SCH ×2 (09:06→17:17)
--- NOTE | 2017-07-19 11:33 | PN ---
DATE: 07/19/2017 SUBJECTIVE: The patient appears comfortable this morning. She is not short of breath at rest. PHYSICAL EXAMINATION VITAL SIGNS: Temperature is 98.0, pulse is approximately 100, respiratory rate 18, blood pressure 130/92. Oxygen saturation on nasal cannula is 98%. HEENT: Normocephalic, atraumatic. No JVD. CARDIOVASCULAR: Systolic ejection murmur at the lower left sternal border. Positive S3 gallop. LUNGS: Decreased breath sounds with crackles at both lower lobes (right worse than left). Much less rhonchi. No wheezing. EXTREMITIES: Less edema. No cyanosis, no clubbing. Calves are nontender to palpation. GI: Abdomen is soft, nontender and nondistended. Bowel sounds are positive. SKIN: No acute rash. NEUROLOGIC: Limited at the present time. LABORATORY DATA: B-type natriuretic peptide done yesterday - [id number]. IMPRESSION: 1. Recurrent congestive heart failure. 2. Enlarging right pleural effusion. 3. Chronic obstructive pulmonary disease. 4. Mild bronchospasm. 5. Rapid atrial fibrillation. PLAN: The patient appears comfortable this morning. She is not short of breath at rest. She does state to feeling a little better overall. On physical exam, her bronchospasm is less. In addition, the oxygen saturation on nasal cannula is now 98%. I will continue the current nebulizer treatments and inhaled steroids for now. I did review the laboratory data from yesterday. A significant rise in the B-type natriuretic peptide is noted (along with a normal BUN/creatinine). I will start the patient on daily Lasix and discuss the above with Cardiology. Input by Dr. Friedman is noted. I have also ordered a repeat chest x-ray for tomorrow - for comparison. If the pleural effusion is not improved on tomorrow's x-ray, I would get Interventional Radiology involved for a thoracentesis. Clinical status of the patient is slightly improved, but remains very guarded overall. I will discuss the above with Dr. Cheatham. José Miguel Kerns MD [facility]
--- NOTE | 2017-07-19 19:42 | US ---
PROCEDURE: Ultrasound guided right thoracentesis. CLINICAL HISTORY: CHF. Large right pleural effusion. Shortness of breath. Needs thoracentesis. PHYSICIAN(S): Dariel Leone MD. TECHNIQUE: The relative risks and indications of the procedure were explained to the patient and consent obtained. The patient was placed in a sitting position on the stretcher and sonography of the right chest performed. This revealed a moderate sized rightpleural effusion. A right posterolateral intercostal approach was selected and the area prepped and draped usual sterile fashion. 1% Xylocaine was used to anesthetize the skin and soft tissues. A 7 [place] thoracentesis catheter was trocared into the right pleural cavity and 1200 ccof clear straw-colored fluid aspirated. No labs were sent. IMPRESSION: 1. Ultrasound guided right thoracentesis. 1200 cc of clear, straw-colored fluid were aspirated.
--- NOTE | 2017-07-20 02:41 | CARD ---
APPROVED REPORT EKG Measurement Heart [id number] <Conclusion> A Fib with RVR Nonspecific ST abnormality Abnormal ECG
[2017-07-20 06:51] LABS: HEMOGLOBIN 10.9 g/dL (12.0-16.0); MEAN CELL VOLUME 91.8 fl (80.0-105.0); MEAN CORPUSCULAR HEMOGLOBIN 28.8 pg (25.0-35.0); MEAN CORPUSCULAR HGB CONC 31.3 g/dl (31.0-37.0); MEAN PLATELET VOLUME 10.5 fl (7.0-11.0); RBC 3.79 10^6/uL (3.5-6.1); RED CELL DISTRIBUTION WIDTH 15.5 % (11.5-14.5)
[2017-07-20 07:04] LABS: BLOOD UREA NITROGEN 23 mg/dL (7-21); CALCIUM 8.4 mg/dL (8.4-10.5); GFR AFRICAN-AMERICAN > 60; GFR NON-AFRICAN AMERICAN 59
[2017-07-20] MEDS: Budesonide 0.5 mg/2 ml Inhal Susp UD IH SCH ×2 (08:19→19:56)
[2017-07-20] MEDS: Levalbuterol 1.25 MG/3 ML Inhal Soln UD IH SCH ×3 (08:19→19:56)
--- NOTE | 2017-07-20 09:02 | PN ---
DATE: 07/20/2017 SUBJECTIVE: The patient appears comfortable this morning. She is not short of breath at rest. PHYSICAL EXAMINATION VITAL SIGNS: Temperature is 98.2, pulse 94, respiratory rate 18/20, blood pressure 117/58. Oxygen saturation on nasal cannula is 95%. HEENT: Normocephalic, atraumatic. No JVD. CARDIOVASCULAR: Systolic ejection murmur at the lower left sternal border. Positive S3 gallop. LUNGS: Improved breath sounds to the right lung. Bibasilar crackles remain. Much less rhonchi. No wheezing. EXTREMITIES: Less edema. No cyanosis, no clubbing. Calves are nontender to palpation. GI: Abdomen is soft, nontender and nondistended. Bowel sounds are positive. SKIN: No acute rash. NEUROLOGIC: Limited at the present time. IMPRESSION: 1. Recurrent congestive heart failure. 2. Enlarging right pleural effusion. Status post thoracentesis. 3. Chronic obstructive pulmonary disease. 4. Mild bronchospasm. 5. Rapid atrial fibrillation. PLAN: The patient appears comfortable this morning. She is not short of breath at rest. She does state to feeling better overall. The patient is status post thoracentesis by Dr. Dariel Leone. Notes are reviewed. Repeat chest x-ray is ordered. On physical exam, her bronchospasm is certainly less. In addition, there is no significant alveolar-arterial gradient. I will continue the current nebulizer treatments for now. The patient remains on intravenous Lasix. Input by Cardiology is noted. Clinical status of the patient is certainly improved - compared to the initial presentation. However, the future status/prognosis for this patient remains very guarded. I will discuss the above with Dr. Cheatham. José Miguel Kerns MD MTDD
--- NOTE | 2017-07-20 10:21 | RAD ---
HISTORY: follow up COMPARISON: 07/17/2017 TECHNIQUE: Chest PA and lateral FINDINGS: LUNGS: No active pulmonary disease. PLEURA: There is a decrease in the size of a right-sided pleural effusion. A moderate effusion remains. CARDIOVASCULAR: Normal. OSSEOUS STRUCTURES: No significant abnormalities. VISUALIZED UPPER ABDOMEN: Normal. OTHER FINDINGS: None. IMPRESSION: There is a decrease in the size of a right-sided pleural effusion. A moderate effusion remains.
[2017-07-20] MEDS: POLYETHYLENE GLYCOL 3350 17 GM/Dose PACKET PO SCH ×2 (10:42→17:15)
[2017-07-20] MEDS: Metoprolol Succinate 50 mg XL Tab PO SCH (10:43)
--- NOTE | 2017-07-20 13:43 | PN ---
DATE: 07/20/2017 SUBJECTIVE: The patient is seen lying in bed, on remote telemetry. She is currently comfortable. She states her dyspnea is much improved following a thoracentesis yesterday. CURRENT MEDICATIONS: Remain Altace, diltiazem 90 mg q. 8 hours, Ecotrin 81 mg daily, Lasix 40 mg daily, Lipitor, Mysoline 50 mg daily, Norvasc 5 mg daily, Pepcid 20 mg daily, Pulmicort inhaler, Toprol XL 50 mg daily, Xanax p.r.n., and Xopenex. OBJECTIVE: GENERAL: She is a very elderly woman who appears comfortable at the present time. VITAL SIGNS: Blood pressure is 120/60 with a pulse of 80 in atrial flutter, respirations 16. She is afebrile. HEENT: No JVD. CHEST: Diminished breath sounds at the bases. HEART: PMI displaced laterally with an irregular rhythm noted. Systolic murmurs present in the left sternal border. ABDOMEN: Soft, nontender with normoactive bowel sounds. EXTREMITIES: No edema. DIAGNOSTIC DATA: Chest x-ray reveals reduction in size of her right pleural effusion, small left pleural effusion persists as well. Potassium is 3.7. BUN and creatinine 23 and 0.9. White count 8.0, hemoglobin and hematocrit 10.9 and 34.8 with a platelet count of 147,000. IMPRESSION: 1. Bilateral pleural effusions, improved following thoracentesis. 2. Severe chronic obstructive pulmonary disease. 3. Coronary artery disease, status post prior bypass surgery and mitral valve replacement. 4. Moderate tricuspid regurgitation. 5. Chronic atrial fibrillation. RECOMMENDATIONS: Current rate control therapy will be planned. Followup chest x-ray will be planned as well. Diuretic therapy should be continued. Followup of the pleural fluid analysis will be planned as well. Reassessment of the appropriateness of anticoagulant therapy should be addressed in the near future. We will continue to follow and make further recommendation as appropriate. Silverio Vickers MD
--- NOTE | 2017-07-21 02:11 | DS ---
HISTORY OF PRESENT ILLNESS: The patient is an 86-year-old female who was brought in to the hospital because of shortness of breath. She was found to have a moderate-size pleural effusion in the right lung field. She had an elevated BNP and lower extremity edema, so it was felt that she had CHF, most likely secondary to diastolic dysfunction. She had a thoracentesis done, that improved her breathing. The patient was seen by Pulmonary and Cardiology. PHYSICAL EXAMINATION: VITAL SIGNS: Temperature 98.2, pulse of 95, blood pressure 121/66, respirations 22. GENERAL: The patient is lying in bed, flat, comfortable. HEENT: No oral lesion. Anicteric sclerae. Moist mucosa. NECK: No JVD, adenopathy, or thyromegaly. CARDIOVASCULAR: S1 and S2, regular. No murmurs, rubs, or gallops. LUNGS: Clear to auscultation bilaterally. No wheeze, rales, or rhonchi. ABDOMEN: Bowel sounds are positive, soft, nontender and nondistended. EXTREMITIES: No cyanosis, clubbing or edema. ASSESSMENT: 1. Atrial fibrillation with rapid rate. 2. Bilateral pleural effusion, right greater than left, status post thoracentesis. 3. Coronary artery disease, status post coronary artery bypass graft. 4. Dyslipidemia. 5. Hypertension. 6. Chronic obstructive pulmonary disease. 7. Moderate tricuspid regurgitation. 8. Status post mitral valve replacement. PLAN: The patient had a thoracentesis done by ultrasound guidance yesterday. 1200 mL of clear fluid was taken out. I did speak to Dr. Leone, who felt that this was transudate. The patient is on Ramipril for her blood pressure as well as Cardizem for her atrial fibrillation. She is on Lipitor for dyslipidemia. She is receiving Norvasc for hypertension. She is going to continue with metoprolol. She is on Xanax as needed. She has a repeat chest x-ray that has been ordered today. I did review the notes of Dr. Kerns from Pulmonary and Dr. Friedman from Cardiology. She has a history of coronary artery disease with CABG. She is on metoprolol for her coronary artery disease. She is on IV diuretic therapy. The patient was to be seen by Physical Therapy, but her heart rate was elevated, so she was not seen. We need to see if the patient qualifies for the Transitional Care Unit. Wilfred Cheatham MD
[2017-07-21] MEDS: Budesonide 0.5 mg/2 ml Inhal Susp UD IH SCH (07:30)
[2017-07-21] MEDS: Levalbuterol 1.25 MG/3 ML Inhal Soln UD IH SCH ×2 (07:30→13:15)
[2017-07-21 08:06] VITALS: RESP 22; TEMP 98.5; O2SAT 95
--- NOTE | 2017-07-21 08:26 | CP.PCM.PN ---
Subjective - Date & Time of Evaluation Date of Evaluation: 07/21/17 Time of Evaluation: 07:00 - Subjective Subjective: Stable on 3R. No CP. Less dyspnea. S/P t-centsis 1200 cc clear straw colored fluid removed 07/19 V/S noted. AF PE: Lungs: decreased BS at bases Cor: irreg S1S2, sys, murmur Abd.: soft Ext.: no edema Neuro.: alert I/O NA BC X2 NG at 3 days F/U CXR 07/20: noted. Smaller right pl. effusion Objective - Vital Signs/Intake and Output Vital Signs (last 24 hours): Temp Pulse Resp BP Pulse Ox 98.5 F 120 H 22 102/53 L 95 07/21/17 08:05 07/21/17 08:05 07/21/17 08:05 07/21/17 08:05 07/21/17 08:05 Intake and Output: 07/21/17 07/21/17 06:59 18:59 Intake Total 300 120 Balance 300 120 - Medications Medications: Current Medications Acetaminophen (Tylenol 325mg Tab) 650 mg PO Q6H PRN PRN Reason: Pain, moderate (4-7) Last Admin: 07/19/17 19:06 Dose: 650 mg Alprazolam (Xanax) 0.25 mg PO BID PRN; Protocol PRN Reason: Agitation Stop: 07/25/17 10:01 Last Admin: 07/18/17 15:10 Dose: 0.25 mg Amlodipine Besylate (Norvasc) 5 mg PO DAILY [facility] Last Admin: 07/20/17 10:42 Dose: 5 mg Aspirin (Ecotrin) 81 mg PO DAILY [facility] Last Admin: 07/20/17 10:41 Dose: 81 mg Atorvastatin Calcium (Lipitor) 20 mg PO HS [facility] Last Admin: 07/20/17 21:58 Dose: 20 mg Budesonide (Pulmicort Respules) 0.5 mg IH [id number] [facility] Last Admin: 07/21/17 07:30 Dose: 0.5 mg Diltiazem HCl (Cardizem) 90 mg PO Q8 [facility] Last Admin: 07/21/17 06:47 Dose: 90 mg Famotidine (Pepcid) 20 mg PO DAILY [facility] Last Admin: 07/20/17 10:43 Dose: 20 mg Furosemide (Lasix) 40 mg PO DAILY [facility] Levalbuterol HCl (Xopenex) 1.25 mg IH TIDRESP [facility] Last Admin: 07/21/17 07:30 Dose: 1.25 mg Metoprolol Succinate (Toprol Xl) 50 mg PO DAILY [facility] Last Admin: 07/20/17 10:43 Dose: 50 mg Polyethylene Glycol (Miralax) 17 gm PO BID [facility] Last Admin: 07/20/17 17:15 Dose: Not Given Primidone (Mysoline) 50 mg PO DAILY [facility] Last Admin: 07/20/17 10:42 Dose: 50 mg Ramipril (Altace) 5 mg PO DAILY [facility] Last Admin: 07/20/17 10:41 Dose: 5 mg - Labs Labs: 07/20/17 05:40 07/20/17 05:40 PT 11.9 SECONDS (9.4-12.5) 07/17/17 19:20 INR 1.04 (0.93-1.08) 07/17/17 19:20 Assessment and Plan - Assessment and Plan (Free Text) Assessment: Dyspnea R>L pleural effusions Severe COPD CAD/CABG/MVR/NL LV on echo with mod. TR AF HBP Plan: Continue diltiazem and metoprolol PO Lasix Await pl. fluid cultures and analysis As per Pulm and Int. Radiology and Dr. Cheatham TCU Eval. OOB as germain.
--- NOTE | 2017-07-21 09:23 | PN ---
DATE: 07/21/2017 PULMONARY NOTE SUBJECTIVE: The patient appears comfortable this morning. She is not short of breath at rest. PHYSICAL EXAMINATION: VITAL SIGNS: Temperature is 98.7, pulse is 120, respiratory rate 18, blood pressure 102/53. Oxygen saturation on room air is 93-95%. HEENT: Normocephalic, atraumatic. No JVD. CARDIOVASCULAR: Systolic ejection murmur at the lower left sternal border. Positive S3 gallop. LUNGS: Decreased breath sounds with crackles at both bases. Very minimal rhonchi. No wheezing. EXTREMITIES: Less edema. No cyanosis. No clubbing. Calves are nontender to palpation. GI: Abdomen is soft, nontender and nondistended. Bowel sounds are positive. SKIN: No acute rash. NEUROLOGIC: Limited at the present time. PERTINENT LABORATORY DATA: Chest x-ray was repeated yesterday and reviewed. There is a significant decrease in the size of the right pleural effusion. A small right pleural effusion remains. IMPRESSION: 1. Recurrent congestive heart failure. 2. Enlarging right pleural effusion. Status post thoracentesis. 3. Chronic obstructive pulmonary disease. 4. Mild bronchospasm. 5. Rapid atrial fibrillation. PLAN: The patient appears very comfortable this morning. She is not short of breath at rest. She does state to feeling much better overall. On physical exam, her bronchospasm is less. In addition, the alveolar-arterial gradient is also less. I will continue with the current nebulizer treatments and inhaled steroids for now. I did review the last chest x-ray - as above. The chest x-ray is much improved, with a significant decrease in the right pleural effusion. I would continue with the treatment for congestive heart failure and atrial fibrillation - as per Cardiology. Input by Dr. Vickers is noted. Clinical status of the patient is certainly improved - compared to the initial presentation. However, again, the future status/prognosis for this elderly patient remains very guarded. I will discuss the above with Dr. Cheatham. José Miguel Kerns MD [facility]
[2017-07-21] MEDS: POLYETHYLENE GLYCOL 3350 17 GM/Dose PACKET PO SCH (10:04)
[2017-07-21] MEDS: Metoprolol Succinate 50 mg XL Tab PO SCH (10:06)
[2017-07-21 10:09] VITALS: BP 102/60; PULSE 66
--- NOTE | 2017-07-22 07:32 | PN ---
DATE: 07/21/2017 SUBJECTIVE: This is an 86-year-old female who has come into the hospital because of difficulties with breathing. She was found to have bilateral pleural effusion. She had a large effusion on the right side and this was drained. The patient is currently comfortable. She is going to the Transitional Care Unit for rehab. Please see the discharge note as dictated on 07/20/2017 for further information. Yesterday, she states she did not have a better so she is leaving today. PHYSICAL EXAMINATION: VITAL SIGNS: Temperature is 98.5, pulse 120, blood pressure 102/53, respiration is 22. GENERAL: The patient is lying in bed, flat, comfortable. HEENT: No oral lesion. Anicteric sclerae. Moist mucosa. NECK: No JVD, adenopathy, or thyromegaly. CARDIOVASCULAR: S1 and S2, regular. No murmurs, rubs, or gallops. LUNGS: Clear to auscultation bilaterally. No wheeze, rales, or rhonchi. ABDOMEN: Bowel sounds are positive, soft, nontender and nondistended. EXTREMITIES: No cyanosis, clubbing or edema. ASSESSMENT: 1. Atrial fibrillation with rapid rate. 2. Bilateral pleural effusion, right greater than left. 3. Status post thoracentesis, 1200 mL of fluids. 4. Coronary artery disease, status post coronary artery bypass grafting. 5. Dyslipidemia. 6. Hypertension. 7. Chronic obstructive pulmonary disease. 8. Moderate tricuspid regurgitation. 9. Status post mitral valve replacement. PLAN: The patient is currently comfortable. She is getting physical therapy. The patient is on Norvasc for hypertension. She is on Cardizem for the atrial fibrillation. She is on Xanax. She is also on metoprolol for her atrial fibrillation. The patient did not want to continue on Transitional Care Unit. CONDITION: Stable. ACTIVITY: Increase as tolerated. Wilfred Cheatham MD
== END 2017-07-21 14:25 | DRG 187 ==
LOC: ED 17:35 → ERH 20:31 → 3RNO 07-18 14:32
PROVIDERS: ADMIT Internal Medicine Nephrology; ATTEND Internal Medicine Nephrology
PROC: BB4BZZZ Ultrasonography of Pleura (ICD-10-PCS; 2017-07-19)
PROC: 0W993ZZ Drainage of Right Pleural Cavity, Percutaneous Approach (ICD-10-PCS; principal; 2017-07-19 15:00)
DX: J90 Pleural effusion, not elsewhere classified (principal); I47.1 Supraventricular tachycardia; I50.32 Chronic diastolic (congestive) heart failure; I11.0 Hypertensive heart disease with heart failure; I48.0 Paroxysmal atrial fibrillation; J44.1 Chronic obstructive pulmonary disease with (acute) exacerbation; J98.11 Atelectasis; I07.1 Rheumatic tricuspid insufficiency; E78.5 Hyperlipidemia, unspecified; I25.10 Atherosclerotic heart disease of native coronary artery without angina pectoris; I48.2 Chronic atrial fibrillation; J98.01 Acute bronchospasm; K21.9 Gastro-esophageal reflux disease without esophagitis; Z90.49 Acquired absence of other specified parts of digestive tract; Z95.1 Presence of aortocoronary bypass graft; Z95.2 Presence of prosthetic heart valve; Z68.28 Body mass index [BMI] 28.0-28.9, adult; R40.2412 Glasgow coma scale score 13-15, at arrival to emergency department

== ENCOUNTER 2017-07-21 14:34 | Inpatient (IN) | payer OTHER, MEDICARE ==
[2017-07-21] MEDS ORDERED: Simethicone 80 mg Chewtab PO STA (16:56)
[2017-07-21] MEDS: POLYETHYLENE GLYCOL 3350 17 GM/Dose PACKET PO SCH (17:47)
[2017-07-21] MEDS ORDERED: Pneumococcal 23-Valent Vaccine IM ONE (19:26)
[2017-07-21] MEDS ORDERED: Influenza Vaccine 60 mcg/0.5 mL SYR (4YR UP) IM ONE (19:26)
[2017-07-21] MEDS: Budesonide 0.5 mg/2 ml Inhal Susp UD IH SCH (19:31)
[2017-07-21] MEDS: Levalbuterol 1.25 MG/3 ML Inhal Soln UD IH SCH (19:31)
[2017-07-22] MEDS: Levalbuterol 1.25 MG/3 ML Inhal Soln UD IH SCH ×3 (07:36→22:01)
[2017-07-22] MEDS: Budesonide 0.5 mg/2 ml Inhal Susp UD IH SCH ×2 (07:36→22:01)
--- NOTE | 2017-07-22 07:56 | CP.PCM.PN ---
Subjective - Date & Time of Evaluation Date of Evaluation: 07/22/17 Time of Evaluation: 07:00 - Subjective Subjective: Stable on TCU. No CP or SOB V/S noted PE: Lungs: decreased BS bases Cor: irreg, S1S2 Abd: soft Ext.: no edema Neuro.; alert Objective - Vital Signs/Intake and Output Vital Signs (last 24 hours): Temp Pulse Resp BP Pulse Ox 98.4 F 82 18 107/71 97 07/21/17 19:06 07/22/17 06:44 07/21/17 19:06 07/22/17 06:44 07/21/17 17:36 - Medications Medications: Current Medications Acetaminophen (Tylenol 325mg Tab) 650 mg PO Q6H PRN; Protocol PRN Reason: Pain, moderate (4-7) Alprazolam (Xanax) 0.25 mg PO BID PRN; Protocol PRN Reason: Anxiety Stop: 07/28/17 18:01 Amlodipine Besylate (Norvasc) 5 mg PO DAILY [facility] PRN Reason: Protocol Aspirin (Ecotrin) 81 mg PO 0800 [facility] PRN Reason: Protocol Atorvastatin Calcium (Lipitor) 20 mg PO DIN [facility] PRN Reason: Protocol Last Admin: 07/21/17 17:47 Dose: 20 mg Budesonide (Pulmicort Respules) 0.5 mg IH [id number] [facility] PRN Reason: Protocol Last Admin: 07/22/17 07:36 Dose: 0.5 mg Diltiazem HCl (Cardizem) 90 mg PO 0600,1400,2200 [facility] PRN Reason: Protocol Last Admin: 07/22/17 06:44 Dose: Not Given Famotidine (Pepcid) 20 mg PO 2200 [facility] PRN Reason: Protocol Last Admin: 07/21/17 22:38 Dose: 20 mg Furosemide (Lasix) 40 mg PO DAILY [facility] PRN Reason: Protocol Levalbuterol HCl (Xopenex) 1.25 mg IH TIDRESP [facility] PRN Reason: Protocol Last Admin: 07/22/17 07:36 Dose: 1.25 mg Metoprolol Succinate (Toprol Xl) 50 mg PO BRK [facility] PRN Reason: Protocol Polyethylene Glycol (Miralax) 17 gm PO BID [facility] PRN Reason: Protocol Last Admin: 07/21/17 17:47 Dose: 17 gm Primidone (Mysoline) 50 mg PO HS [facility] PRN Reason: Protocol Last Admin: 07/21/17 22:38 Dose: 50 mg Ramipril (Altace) 5 mg PO DAILY [facility] PRN Reason: Protocol Assessment and Plan - Assessment and Plan (Free Text) Assessment: Dyspnea Bilat pl. effusions R>L/s/p right thoracentesis Severe COPD CAD/CABG/MVR/Nl LV on echo with mod. TR AF HBP Plan: Continue diltiazem and metoprolol Resume Eliquis 2.5 BID OOB/PT/Rehab Efforts F/U pl. fluid analysis
--- NOTE | 2017-07-22 08:05 | PN ---
DATE: 07/22/2017 PULMONARY NOTE SUBJECTIVE: The patient appears comfortable this morning. She is not short of breath at rest. She does appear very weak. PHYSICAL EXAMINATION VITAL SIGNS: Temperature is 98.4, pulse is 82, respirations 18, blood pressure 107/71. Oxygen saturation on nasal cannula is 97%. HEENT: Normocephalic, atraumatic. No JVD. CARDIOVASCULAR: Systolic ejection murmur at the lower left sternal border. Positive S3 gallop. LUNGS: Decreased breath sounds at the bases with crackles. Minimal rhonchi. No wheezing. EXTREMITIES: Less edema. No cyanosis, no clubbing. Calves are nontender to palpation. GI: Abdomen is soft, nontender and nondistended. Bowel sounds are positive. SKIN: No acute rash. NEUROLOGIC: Limited at the present time. IMPRESSION: 1. Recurrent congestive heart failure. 2. Enlarging right pleural effusion. Status post thoracentesis. 3. Chronic obstructive pulmonary disease. 4. Mild bronchospasm. 5. Rapid atrial fibrillation. PLAN: The patient appears comfortable this morning. She is not short of breath at rest. She does state to feeling much better overall. As above, she does appear very weak. On physical exam, there is mild bronchospasm noted. However, there is no significant alveolar-arterial gradient. I will continue the current nebulizer treatments and inhaled steroids for now. I would continue with the treatment for congestive heart failure and the cardiac arrhythmias as per Cardiology. Inputs are noted. The patient remains on Lasix therapy. Clinical status of the patient is significantly improved - compared to her initial presentation. The patient is now on the Transitional Unit - where she will receive aggressive physical therapy. I would also like to see the patient out of bed as much as possible. I will discuss the above with the attending physician. José Miguel Kerns MD [facility]
[2017-07-22] MEDS: Metoprolol Succinate 50 mg XL Tab PO SCH (09:03)
[2017-07-22] MEDS: POLYETHYLENE GLYCOL 3350 17 GM/Dose PACKET PO SCH ×2 (09:03→17:29)
[2017-07-22] MEDS: Furosemide 40 mg/5 mL Oral Soln UD PO SCH (09:03)
--- NOTE | 2017-07-22 09:28 | PN ---
DATE: SUBJECTIVE: The patient's initial H and P was reviewed and I agree with. The patient is coming to the Transitional Care Unit for physical therapy because of acute dysfunction. The patient has no complaints of any chest pain. No shortness of breath. No headaches or dizziness. PHYSICAL EXAMINATION VITAL SIGNS: Temperature is 98.4, pulse of 64, blood pressure is 101/58, and respirations of 18. GENERAL: The patient is lying in bed, flat, comfortable. HEENT: No oral lesion. Anicteric sclerae. Moist mucosa. NECK: No JVD, adenopathy, or thyromegaly. CARDIOVASCULAR: S1 and S2, regular. No murmurs, rubs, or gallops. LUNGS: Clear to auscultation bilaterally. No wheeze, rales, or rhonchi. ABDOMEN: Bowel sounds are positive, soft, nontender and nondistended. EXTREMITIES: No cyanosis, clubbing, or edema. ASSESSMENT: 1. Atrial fibrillation, not on anticoagulation. 2. Bilateral pleural effusion, right greater than left, status post thoracentesis. 3. Coronary artery disease, status post coronary artery bypass grafting. 4. Dyslipidemia. 5. Chronic obstructive pulmonary disease. 6. Hypertension. 7. Moderate tricuspid regurgitation. 8. Status post mitral valve replacement. PLAN: The patient is currently comfortable. She is getting physical therapy. She is on aspirin daily. She is receiving diltiazem for her atrial fibrillation. The patient is on Lipitor for dyslipidemia. She received simethicone yesterday because of gas. She is on Norvasc for hypertension. She is going to continue with Pepcid. She is receiving Pulmicort. She was given pneumonia vaccination. The patient is on Xanax as needed. She is being followed by Cardiology. I did review Dr. Friedman's note. He is managing the patient's atrial fibrillation. Wilfred Cheatham MD
[2017-07-23] MEDS: Budesonide 0.5 mg/2 ml Inhal Susp UD IH SCH ×2 (07:26→20:31)
[2017-07-23] MEDS: Levalbuterol 1.25 MG/3 ML Inhal Soln UD IH SCH ×3 (07:26→20:31)
[2017-07-23] MEDS: Metoprolol Succinate 50 mg XL Tab PO SCH (08:18)
[2017-07-23] MEDS: Furosemide 40 mg/5 mL Oral Soln UD PO SCH (10:22)
[2017-07-23] MEDS: POLYETHYLENE GLYCOL 3350 17 GM/Dose PACKET PO SCH ×2 (10:23→19:03)
--- NOTE | 2017-07-23 14:33 | PN ---
DATE: 07/23/2017 PULMONARY PROGRESS NOTE SUBJECTIVE: The patient is comfortable sitting in a chair. She has no respiratory complaints. She is anxiously waiting, worried about concerning discharge. Workup is currently in progress. PHYSICAL EXAMINATION: GENERAL: She is resting comfortably. VITAL SIGNS: Stable, afebrile. Temperature 98.4, pulse 84, respiratory rate 18, blood pressure 110/70, O2 saturation 97% on supplemental oxygen. HEENT: Normocephalic, atraumatic. No jugular venous distention. No bruit. No other abnormalities noted. CARDIOVASCULAR: Regular rhythm. S1, S2 without murmur, gallop or rub. LUNGS: Decrease in breath sounds. No rales, rhonchi or wheezes. ABDOMEN: Soft. Bowel sounds normoactive without mass, guarding or rebound. EXTREMITIES: Reveal no clubbing, cyanosis or edema. There is no Jasbir sign. SKIN: No rash or excoriation. NEUROLOGIC: No focal findings. LYMPHADENOPATHY: Not present in the supraclavicular notch nor in the cervical, inguinal or axillary areas. DATA: Chest x-ray done three days ago shows decrease in pleural effusion with significant residual. CLINICAL IMPRESSION: 1. Recurrent congestive heart failure. 2. Right pleural effusion, status post thoracentesis. 3. Chronic obstructive pulmonary disease, stable at this time. 4. Rapid atrial fibrillation by history. PLAN: Continue close monitoring, diuretic therapy as per Cardiology with continued monitoring of this effusion prior to discharge; hopefully, this can be taken care of medically with diuretics and afterload reduction. We will discuss with primary medical doctor today. Dr. Kerns will follow up on Tuesday to make sure that no further workup was required at that time. Thank you for the opportunity to see Ana Galarza. Efrain Marlow MD [facility]
[2017-07-24] MEDS: Budesonide 0.5 mg/2 ml Inhal Susp UD IH SCH ×2 (07:06→19:16)
[2017-07-24] MEDS: Levalbuterol 1.25 MG/3 ML Inhal Soln UD IH SCH ×3 (07:06→19:16)
[2017-07-24] MEDS: Metoprolol Succinate 50 mg XL Tab PO SCH (08:34)
[2017-07-24] MEDS: POLYETHYLENE GLYCOL 3350 17 GM/Dose PACKET PO SCH ×2 (09:36→18:16)
--- NOTE | 2017-07-24 23:45 | PN ---
DATE: 07/24/2017 SUBJECTIVE: She is comfortable in bed, in no acute distress. Participating in physical therapy. Shortness of breath on exertion present. No chest pain, no cough with expectoration. No fever. REVIEW OF SYSTEMS: As per HPI. Rest of 12-point review of systems reviewed and negative. PHYSICAL EXAMINATION: GENERAL: Comfortable in bed, in no acute distress. VITAL SIGNS: Temperature 98.8, heart rate 65 per minute, blood pressure 130/60, respiratory rate 15 per minute, oxygen saturation 98% on room air. HEENT: Normal. NECK: No lymphadenopathy. CHEST: Air entry present and equal bilaterally. No added sounds. CARDIOVASCULAR: S1 and S2 normal. No murmur. No gallop. ABDOMEN: Soft, nontender. No hepatosplenomegaly. EXTREMITIES: No edema. SPINE: Nontender. LABORATORY DATA: Reviewed. MEDICATIONS: Reviewed. ASSESSMENT: 1. Atrial fibrillation, not on anticoagulation. 2. Bilateral pleural effusion, status post thoracentesis. 3. Coronary artery disease. 4. Dyslipidemia. 5. Hypertension 6. Anemia. PLAN: She is currently comfortable. We will continue current medications. Participating in physical therapy. Continue Xanax p.r.n., Norvasc 5 mg daily. She is on anticoagulation with Eliquis 2.5 mg p.o. b.i.d. Continue bronchodilator, Altace 5 mg p.o. daily. Verónica Cherry MD
--- NOTE | 2017-07-24 23:47 | PN ---
DATE: 07/23/2017 FOLLOWUP NOTE SUBJECTIVE: She is comfortable in bed, in no acute distress. She has exertional dyspnea, participating in physical therapy. Denies any chest pain. No shortness of breath. No events overnight. REVIEW OF SYSTEMS: As per HPI. Rest of 12-point review of systems reviewed negative. PHYSICAL EXAMINATION: GENERAL: Comfortable in bed, in no acute distress. VITAL SIGNS: Temperature 98.4, heart rate 60 per minute, blood pressure 101/60, respiratory rate 18 per minute. HEENT: Pallor positive. NECK: No lymphadenopathy. CHEST: Air entry present and equal bilaterally. No added sound. CARDIOVASCULAR: S1 and S2 normal. No murmur. No gallop. ABDOMEN: Soft, nontender. No hepatosplenomegaly. EXTREMITIES: No edema, no cyanosis, no clubbing. SPINE: Nontender. LABORATORY DATA: None. MEDICATIONS: Reviewed. ASSESSMENT: 1. Atrial fibrillation, not on anticoagulation. 2. Coronary artery disease. 3. Hypertension. 4. Anemia. 5. Tricuspid regurgitation. PLAN: She is currently comfortable, participating in physical therapy. We will continue diltiazem. Heart rate is controlled current medications. Continue Norvasc for hypertension. Cardiology following. Verónica Cherry MD
[2017-07-25] MEDS: Levalbuterol 1.25 MG/3 ML Inhal Soln UD IH SCH ×3 (07:11→20:31)
[2017-07-25] MEDS: Budesonide 0.5 mg/2 ml Inhal Susp UD IH SCH ×2 (07:11→20:31)
--- NOTE | 2017-07-25 07:40 | CP.PCM.PN ---
Subjective - Date & Time of Evaluation Date of Evaluation: 07/25/17 Time of Evaluation: 07:00 - Subjective Subjective: Stable on TCU. No CP or SOB. V/S noted PE: Lungs: decreased BS bases Cor: irreg, S1S2 Abd: soft Ext.: no edema Neuro.; alert Objective - Vital Signs/Intake and Output Vital Signs (last 24 hours): Temp Pulse Resp BP Pulse Ox 97.3 F L 64 19 115/68 94 L 07/24/17 10:00 07/25/17 06:05 07/24/17 19:37 07/25/17 06:05 07/24/17 19:37 - Medications Medications: Current Medications Acetaminophen (Tylenol 325mg Tab) 650 mg PO Q6H PRN; Protocol PRN Reason: Pain, moderate (4-7) Alprazolam (Xanax) 0.25 mg PO BID PRN; Protocol PRN Reason: Anxiety Stop: 07/28/17 18:01 Last Admin: 07/24/17 18:21 Dose: 0.25 mg Amlodipine Besylate (Norvasc) 5 mg PO DAILY [facility] PRN Reason: Protocol Last Admin: 07/24/17 09:36 Dose: 5 mg Apixaban (Eliquis) 2.5 mg PO BID [facility] PRN Reason: Protocol Last Admin: 07/24/17 18:15 Dose: 2.5 mg Aspirin (Ecotrin) 81 mg PO 0800 [facility] PRN Reason: Protocol Last Admin: 07/24/17 08:34 Dose: 81 mg Atorvastatin Calcium (Lipitor) 20 mg PO DIN [facility] PRN Reason: Protocol Last Admin: 07/24/17 18:16 Dose: 20 mg Budesonide (Pulmicort Respules) 0.5 mg IH [id number] [facility] PRN Reason: Protocol Last Admin: 07/25/17 07:11 Dose: 0.5 mg Diltiazem HCl (Cardizem) 90 mg PO 0600,1400,2200 [facility] PRN Reason: Protocol Last Admin: 07/25/17 06:05 Dose: 90 mg Famotidine (Pepcid) 20 mg PO 2200 [facility] PRN Reason: Protocol Last Admin: 07/24/17 21:57 Dose: 20 mg Furosemide (Lasix) 40 mg PO DAILY [facility] PRN Reason: Protocol Last Admin: 07/24/17 09:35 Dose: 40 mg Levalbuterol HCl (Xopenex) 1.25 mg IH TIDRESP [facility] PRN Reason: Protocol Last Admin: 07/25/17 07:11 Dose: 1.25 mg Metoprolol Succinate (Toprol Xl) 50 mg PO BRK [facility] PRN Reason: Protocol Last Admin: 07/24/17 08:34 Dose: 50 mg Polyethylene Glycol (Miralax) 17 gm PO BID [facility] PRN Reason: Protocol Last Admin: 07/24/17 18:16 Dose: 17 gm Primidone (Mysoline) 50 mg PO HS [facility] PRN Reason: Protocol Last Admin: 07/24/17 21:57 Dose: 50 mg Ramipril (Altace) 5 mg PO DAILY [facility] PRN Reason: Protocol Last Admin: 07/24/17 09:36 Dose: 5 mg Assessment and Plan - Assessment and Plan (Free Text) Assessment: Dyspnea Bilat pl. effusions R>L/s/p right thoracentesis Severe COPD CAD/CABG/MVR/Nl LV on echo with mod. TR AF HBP Plan: Continue diltiazem and metoprolol Continue Eliquis 2.5 BID OOB/PT/Rehab Efforts F/U pl. fluid analysis
[2017-07-25] MEDS: Metoprolol Succinate 50 mg XL Tab PO SCH (08:17)
--- NOTE | 2017-07-25 08:36 | PN ---
DATE: 07/25/2017 PULMONARY NOTE SUBJECTIVE: The patient appears comfortable this morning. She is not short of breath at rest. PHYSICAL EXAMINATION VITAL SIGNS: Temperature is 97.3, pulse is 64, respirations 18, blood pressure 115/68. Oxygen saturation on room air is 94%. HEENT: Normocephalic, atraumatic. No JVD. CARDIOVASCULAR: Systolic ejection murmur at the lower left sternal border. Positive S3 gallop. LUNGS: Decreased breath sounds at the bases with crackles. Less rhonchi. No wheezing. EXTREMITIES: Less edema. No cyanosis, no clubbing. Calves are nontender to palpation. GI: Abdomen is soft, nontender and nondistended. Bowel sounds are positive. SKIN: No acute rash. NEUROLOGIC: Limited at the present time. IMPRESSION: 1. Recurrent congestive heart failure. 2. Large right pleural effusion. Status post thoracentesis. 3. Chronic obstructive pulmonary disease. 4. Mild bronchospasm. 5. Rapid atrial fibrillation. PLAN: The patient appears comfortable this morning. She is not short of breath at rest. She does state to feeling much better overall. On physical exam, there is less bronchospasm noted. In addition, there is less alveolar-arterial gradient. I will continue the current nebulizer treatments and inhaled steroids for now. I would continue with the treatment for congestive heart failure as per Cardiology. The patient remains on Lasix. Clinical status of the patient is certainly improved - compared to the initial presentation. However, again, the future status/prognosis for this elderly patient does remain guarded. I will discuss the above with Dr. Cheatham. José Miguel Kerns MD [facility]
--- NOTE | 2017-07-25 08:42 | PN ---
DATE: SUBJECTIVE: The patient has no complaints of any chest pain or shortness of breath. No headaches or dizziness. PHYSICAL EXAMINATION VITAL SIGNS: Temperature is 97.3, pulse of 127, blood pressure is 107/71, respirations 19. GENERAL: The patient is lying in bed, flat, comfortable. HEENT: No oral lesion. Anicteric sclerae. Moist mucosa. NECK: No JVD, adenopathy, or thyromegaly. CARDIOVASCULAR: S1 and S2, regular. No murmurs, rubs, or gallops. LUNGS: Clear to auscultation bilaterally. No wheeze, rales, or rhonchi. ABDOMEN: Bowel sounds are positive. Soft, nontender and nondistended. EXTREMITIES: No cyanosis, clubbing or edema. ASSESSMENT 1. Atrial fibrillation, on anticoagulation. 2. Bilateral pleural effusion, right greater than left, status post thoracentesis. 3. Coronary artery disease, status post coronary artery bypass grafting. 4. Dyslipidemia. 5. Chronic obstructive pulmonary disease. 6. Hypertension. 7. Moderate tricuspid regurgitation. 8. Status post aortic valve replacement. PLAN: The patient is currently doing well, on physical therapy. The patient has been started on anticoagulation with Eliquis by Dr. Friedman. The patient is on Lasix daily. She is on MiraLax for constipation. She is on Norvasc for her hypertension. The patient is receiving Pulmicort for her breathing. She is on Xanax as needed. She is on a heart-healthy diet. She is improving with physical therapy. Wilfred Cheatham MD
[2017-07-25] MEDS: POLYETHYLENE GLYCOL 3350 17 GM/Dose PACKET PO SCH ×2 (10:17→18:28)
--- NOTE | 2017-07-26 07:33 | CP.PCM.PN ---
Subjective - Date & Time of Evaluation Date of Evaluation: 07/26/17 Time of Evaluation: 07:00 - Subjective Subjective: Stable on TCU. No CP or SOB. V/S noted PE: Lungs: decreased BS bases Cor: irreg, S1S2 Abd: soft Ext.: no edema Neuro.; alert BMP pending. Objective - Vital Signs/Intake and Output Vital Signs (last 24 hours): Temp Pulse Resp BP Pulse Ox 98.6 F 90 20 121/85 93 L 07/25/17 17:47 07/25/17 22:18 07/25/17 17:47 07/25/17 22:18 07/25/17 17:47 Intake and Output: 07/26/17 07/26/17 06:59 18:59 Intake Total 240 Balance 240 - Medications Medications: Current Medications Acetaminophen (Tylenol 325mg Tab) 650 mg PO Q6H PRN; Protocol PRN Reason: Pain, moderate (4-7) Alprazolam (Xanax) 0.25 mg PO BID PRN; Protocol PRN Reason: Anxiety Stop: 07/28/17 18:01 Last Admin: 07/25/17 19:37 Dose: 0.25 mg Amlodipine Besylate (Norvasc) 5 mg PO DAILY MULUGETA PRN Reason: Protocol Last Admin: 07/25/17 10:17 Dose: 5 mg Apixaban (Eliquis) 2.5 mg PO BID MULUGETA PRN Reason: Protocol Last Admin: 07/25/17 18:29 Dose: 2.5 mg Aspirin (Ecotrin) 81 mg PO 0800 MULUGETA PRN Reason: Protocol Last Admin: 07/25/17 08:17 Dose: 81 mg Atorvastatin Calcium (Lipitor) 20 mg PO DIN MULUGETA PRN Reason: Protocol Last Admin: 07/25/17 18:29 Dose: 20 mg Budesonide (Pulmicort Respules) 0.5 mg IH [id number] MULUGETA PRN Reason: Protocol Last Admin: 07/25/17 20:31 Dose: 0.5 mg Diltiazem HCl (Cardizem) 90 mg PO 0600,1400,2200 MULUGETA PRN Reason: Protocol Last Admin: 07/25/17 22:18 Dose: 90 mg Famotidine (Pepcid) 20 mg PO 2200 MULUGETA PRN Reason: Protocol Last Admin: 07/25/17 22:19 Dose: 20 mg Furosemide (Lasix) 40 mg PO DAILY MULUGETA PRN Reason: Protocol Last Admin: 07/25/17 10:17 Dose: 40 mg Levalbuterol HCl (Xopenex) 1.25 mg IH TIDRESP MULUGETA PRN Reason: Protocol Last Admin: 07/25/17 20:31 Dose: 1.25 mg Metoprolol Succinate (Toprol Xl) 50 mg PO BRK MULUGETA PRN Reason: Protocol Last Admin: 07/25/17 08:17 Dose: 50 mg Polyethylene Glycol (Miralax) 17 gm PO BID MULUGETA PRN Reason: Protocol Last Admin: 07/25/17 18:28 Dose: Not Given Primidone (Mysoline) 50 mg PO HS MULUGETA PRN Reason: Protocol Last Admin: 07/25/17 22:19 Dose: 50 mg Ramipril (Altace) 5 mg PO DAILY MULUGETA PRN Reason: Protocol Last Admin: 07/25/17 10:16 Dose: 5 mg Assessment and Plan - Assessment and Plan (Free Text) Assessment: Dyspnea Bilat pl. effusions R>L/s/p right thoracentesis Severe COPD CAD/CABG/MVR/Nl LV on echo with mod. TR AF HBP Plan: Continue diltiazem and metoprolol Continue Eliquis 2.5 BID and Lasix 40 mg. Daily OOB/PT/Rehab Efforts F/U pl. fluid analysis, as per pulmonary
[2017-07-26 07:39] LABS: BLOOD UREA NITROGEN 33 mg/dL (7-21); CALCIUM 8.9 mg/dL (8.4-10.5); GFR AFRICAN-AMERICAN > 60; GFR NON-AFRICAN AMERICAN 53
[2017-07-26] MEDS: Metoprolol Succinate 50 mg XL Tab PO SCH (08:06)
[2017-07-26] MEDS: Budesonide 0.5 mg/2 ml Inhal Susp UD IH SCH ×2 (08:18→20:46)
[2017-07-26] MEDS: Levalbuterol 1.25 MG/3 ML Inhal Soln UD IH SCH ×3 (08:18→20:46)
--- NOTE | 2017-07-26 09:09 | PN ---
DATE: 07/26/2017 PULMONARY NOTE SUBJECTIVE: The patient appears comfortable this morning. She is not short of breath at rest. PHYSICAL EXAMINATION VITAL SIGNS: Temperature is 98.6, pulse is 90, respirations 18, blood pressure 121/85. Oxygen saturation on room air is 93%-94%. HEENT: Normocephalic, atraumatic. No JVD. CARDIOVASCULAR: Systolic ejection murmur at the lower left sternal border. Positive S3 gallop. LUNGS: Decreased breath sounds at the bases with crackles. Minimal/less rhonchi. No wheezing. EXTREMITIES: Less edema. No cyanosis, no clubbing. Calves are nontender to palpation. GI: Abdomen is soft, nontender and nondistended. Bowel sounds are positive. SKIN: No acute rash. NEUROLOGIC: Limited at the present time. IMPRESSION: 1. Recurrent congestive heart failure. 2. Large right pleural effusion. Status post thoracentesis. 3. Chronic obstructive pulmonary disease. 4. Mild bronchospasm. 5. Rapid atrial fibrillation. PLAN: The patient appears very comfortable this morning. She is not short of breath at rest. She does state to feeling much better overall. On physical exam, her bronchospasm continues to resolve. In addition, there is no significant alveolar-arterial gradient. I will continue the current nebulizer treatments and inhaled steroids for now. I would continue with the treatment for congestive heart failure as per Cardiology. Input by Dr. Friedman is noted. The patient remains on Lasix. Repeat a.m. labs are pending. Clinical status of the patient is certainly improved - compared to the initial presentation. However, again, the future status/prognosis for this elderly patient does remain very guarded. I will discuss the above with Dr. Cheatham. José Miguel Kerns MD MTDDimple
[2017-07-26] MEDS: POLYETHYLENE GLYCOL 3350 17 GM/Dose PACKET PO SCH ×2 (11:04→17:02)
[2017-07-27 07:13] LABS: HEMOGLOBIN 11.8 g/dL (12.0-16.0); MEAN CELL VOLUME 90.4 fl (80.0-105.0); MEAN CORPUSCULAR HEMOGLOBIN 28.4 pg (25.0-35.0); MEAN CORPUSCULAR HGB CONC 31.5 g/dl (31.0-37.0); MEAN PLATELET VOLUME 10.5 fl (7.0-11.0); RBC 4.15 10^6/uL (3.5-6.1); WHITE BLOOD COUNT 7.6 10^3/ul (4.5-11.0)
[2017-07-27] MEDS: Levalbuterol 1.25 MG/3 ML Inhal Soln UD IH SCH ×3 (07:22→21:04)
[2017-07-27] MEDS: Budesonide 0.5 mg/2 ml Inhal Susp UD IH SCH ×2 (07:22→21:04)
[2017-07-27 07:31] LABS: ALB/GLOB RATIO 1.1 (1.1-1.8); ALBUMIN 3.4 g/dL (3.0-4.8); ALT/SGPT 27 U/L (7-56); AST/SGOT 35 U/L (14-36); BLOOD UREA NITROGEN 33 mg/dL (7-21); GFR AFRICAN-AMERICAN > 60; GFR NON-AFRICAN AMERICAN 59
--- NOTE | 2017-07-27 08:15 | PN ---
DATE: 07/27/2017 PULMONARY NOTE SUBJECTIVE: The patient appears comfortable this morning. She is not short of breath at rest. PHYSICAL EXAMINATION VITAL SIGNS: Temperature is 98.3, pulse is approximately 88, respiratory rate 18, blood pressure 117/78. Oxygen saturation on room air is 96%. HEENT: Normocephalic, atraumatic. No JVD. CARDIOVASCULAR: Systolic ejection murmur at the lower left sternal border. Positive S3 gallop. LUNGS: Decreased breath sounds at the bases with crackles. Much less rhonchi. No wheezing. EXTREMITIES: Less edema. No cyanosis, no clubbing. Calves are nontender to palpation. GI: Abdomen is soft, nontender and nondistended. Bowel sounds are positive. SKIN: No acute rash. NEUROLOGIC: Limited at the present time. IMPRESSION: 1. Recurrent congestive heart failure. 2. Large right pleural effusion. Status post thoracentesis. 3. Chronic obstructive pulmonary disease. 4. Mild bronchospasm. 5. Rapid atrial fibrillation. PLAN: The patient appears comfortable this morning. She is not short of breath at rest. She does state to feeling better overall. On physical exam, her bronchospasm continues to resolve. In addition, the alveolar-arterial gradient also continues to resolve. Oxygen saturation on room air is now 96%. I will continue the current nebulizer treatments and inhaled steroids for now. I would continue with the treatment for congestive heart failure and cardiac arrhythmias as per Cardiology. Input by Dr. Friedman is noted. Clinically, the patient is certainly improved - compared to the initial presentation. However, again, the overall status/prognosis for this elderly patient remains very guarded at best. I will discuss the above with Dr. Cheatham. José Miguel Kerns MD [facility]
[2017-07-27] MEDS: POLYETHYLENE GLYCOL 3350 17 GM/Dose PACKET PO SCH ×2 (10:29→18:42)
[2017-07-27] MEDS: Metoprolol Succinate 50 mg XL Tab PO SCH (11:28)
--- NOTE | 2017-07-27 14:03 | PN ---
DATE: 07/27/2017 SUBJECTIVE: The patient has no complaints of any chest pain, no shortness of breath, no headaches or dizziness. PHYSICAL EXAMINATION VITAL SIGNS: Temperature is 98.3, pulse in the 80s, rechecked today, it was 130s earlier; blood pressure is 117/78, respirations 18. GENERAL: The patient is lying in bed, flat, comfortable. HEENT: No oral lesion. Anicteric sclerae. Moist mucosa. NECK: No JVD, adenopathy, or thyromegaly. CARDIOVASCULAR: S1 and S2, regular. No murmurs, rubs, or gallops. LUNGS: Clear to auscultation bilaterally. No wheeze, rales, or rhonchi. ABDOMEN: Bowel sounds are positive, soft, nontender and nondistended. EXTREMITIES: no cyanosis, clubbing or edema. LABORATORY DATA: White count of 7.6, hemoglobin 11.8. Creatinine 0.9. ASSESSMENT: 1. Atrial fibrillation, on anticoagulation. 2. Bilateral pleural effusion, right greater than left, status post thoracentesis. 3. Coronary artery disease status post coronary artery bypass graft. 4. Dyslipidemia. 5. Chronic obstructive pulmonary disease. 6. Hypertension. 7. Moderate tricuspid regurgitation. 8. Status post aortic valve replacement. PLAN: The patient is currently comfortable. I will get a chest x-ray to evaluate her CHF and her pleural effusion. The patient is on ramipril. She is going to continue with Cardizem for her atrial fibrillation. The patient does have episodes of asymptomatic bradycardia, so it is difficult to increase the patient's medications for the atrial fibrillation. The patient is on primidone. She is going to continue with Norvasc for hypertension. She is on metoprolol daily. She is on Xopenex. She is on heart healthy diet. Wilfred Cheatham MD
--- NOTE | 2017-07-27 14:05 | RAD ---
HISTORY: SOB COMPARISON: Comparison chest dated 07/20/2017 TECHNIQUE: Chest PA and lateral FINDINGS: LUNGS: Right lower lobe opacity which may represent some combination of atelectasis/ infiltrate and effusion. Suspect minimal left basilar atelectasis and tiny left effusion. PLEURA: As above. No pneumothorax apparent. CARDIOVASCULAR: Sternotomy wires and prostatic valve again noted OSSEOUS STRUCTURES: Mild multilevel degenerative spondylosis of the thoracic spine Degenerative changes both shoulder girdles left greater than right VISUALIZED UPPER ABDOMEN: Normal. OTHER FINDINGS: None. IMPRESSION: Right lower lobe opacity may represent some combination of atelectasis/ infiltrate and effusion. Small residual left effusion and minimal left basilar atelectasis suspected.
--- NOTE | 2017-07-28 07:00 | PN ---
DATE: SUBJECTIVE: The patient appears comfortable this morning. She is not short of breath at rest. OBJECTIVE VITAL SIGNS: Temperature is 98.4, pulse this morning is approximately 88, respiratory rate 18, blood pressure 107/62. Oxygen saturation on room air is 93%-96%. HEENT: Normocephalic, atraumatic. NECK: No JVD. CARDIOVASCULAR: Systolic ejection murmur at the lower left sternal border. Positive S3 gallop. LUNGS: Decreased breath sounds at the bases with crackles. Very minimal rhonchi. No wheezing. EXTREMITIES: Less edema. No cyanosis, no clubbing. Calves are nontender to palpation. GASTROINTESTINAL: Abdomen is soft, nontender, nondistended. Bowel sounds are positive. SKIN: No acute rash. NEUROLOGIC: Exam limited at the present time. PERTINENT LABORATORY DATA: Chest x-ray was done yesterday and reviewed. The chest x-ray done yesterday shows further improvement with decreased opacification(now very minimal) at the right base. IMPRESSION 1. Recurrent congestive heart failure. 2. Large right pleural effusion. Status post thoracentesis. 3. Chronic obstructive pulmonary disease. 4. Mild bronchospasm. 5. Rapid atrial fibrillation. PLAN: The patient appears comfortable this morning. She is not short of breath at rest. She does state to feeling much better overall. On physical exam, her bronchospasm continues to resolve. In addition, the alveolar arterial gradient also continues to resolve. I will continue the current nebulizer treatments and inhaled steroids for now. I did review the last chest x-ray - as above. The chest x-ray continues to improve - with only very minimal opacification at the right base remaining. I would continue with the treatment for congestive heart failure and cardiac arrhythmias as per Cardiology. Input by Dr. Friedman is noted. The patient remains on Lasix. Clinical status of the patient is significantly improved overall. However, unfortunately, her future status/prognosis does remain very guarded. I will discuss the above with Dr. Cheatham. José Miguel Kerns MD < MTDD
[2017-07-28] MEDS: Levalbuterol 1.25 MG/3 ML Inhal Soln UD IH SCH ×3 (07:13→19:51)
[2017-07-28] MEDS: Budesonide 0.5 mg/2 ml Inhal Susp UD IH SCH ×2 (07:13→19:50)
--- NOTE | 2017-07-28 07:36 | CP.PCM.PN ---
Subjective - Date & Time of Evaluation Date of Evaluation: 07/28/17 Time of Evaluation: 07:00 - Subjective Subjective: Stable on TCU. No CP or SOB. V/S noted PE: Lungs: decreased BS bases Cor: irreg, S1S2 Abd: soft Ext.: no edema Neuro.; alert Labs 07/27 noted CXR 07/[address] noted. [address] effusion Objective - Vital Signs/Intake and Output Vital Signs (last 24 hours): Temp Pulse Resp BP Pulse Ox 98.4 F 42 L 18 100/48 L 93 L 07/27/17 16:27 07/28/17 06:59 07/27/17 16:27 07/28/17 06:59 07/27/17 16:27 Intake and Output: 07/28/17 07/28/17 06:59 18:59 Intake Total 240 Balance 240 - Medications Medications: Current Medications Acetaminophen (Tylenol 325mg Tab) 650 mg PO Q6H PRN; Protocol PRN Reason: Pain, moderate (4-7) Alprazolam (Xanax) 0.25 mg PO BID PRN; Protocol PRN Reason: Anxiety Stop: 07/28/17 18:01 Last Admin: 07/27/17 22:56 Dose: 0.25 mg Amlodipine Besylate (Norvasc) 5 mg PO DAILY MULUGETA PRN Reason: Protocol Last Admin: 07/27/17 11:28 Dose: 5 mg Apixaban (Eliquis) 2.5 mg PO BID MULUGETA PRN Reason: Protocol Last Admin: 07/27/17 18:42 Dose: 2.5 mg Aspirin (Ecotrin) 81 mg PO 0800 MULUGETA PRN Reason: Protocol Last Admin: 07/27/17 11:28 Dose: 81 mg Atorvastatin Calcium (Lipitor) 20 mg PO DIN MULUGETA PRN Reason: Protocol Last Admin: 07/27/17 18:42 Dose: 20 mg Budesonide (Pulmicort Respules) 0.5 mg IH [id number] MULUGETA PRN Reason: Protocol Last Admin: 07/28/17 07:13 Dose: 0.5 mg Diltiazem HCl (Cardizem) 90 mg PO 0600,1400,2200 MULUGETA PRN Reason: Protocol Last Admin: 07/28/17 06:59 Dose: Not Given Famotidine (Pepcid) 20 mg PO 2200 MULUGETA PRN Reason: Protocol Last Admin: 07/27/17 22:50 Dose: 20 mg Furosemide (Lasix) 40 mg PO DAILY MULUGETA PRN Reason: Protocol Last Admin: 07/27/17 11:28 Dose: 40 mg Levalbuterol HCl (Xopenex) 1.25 mg IH TIDRESP MULUGETA PRN Reason: Protocol Last Admin: 07/28/17 07:13 Dose: 1.25 mg Metoprolol Succinate (Toprol Xl) 50 mg PO BRK MULUGETA PRN Reason: Protocol Last Admin: 07/27/17 11:28 Dose: 50 mg Polyethylene Glycol (Miralax) 17 gm PO BID MULUGETA PRN Reason: Protocol Last Admin: 07/27/17 18:42 Dose: 17 gm Primidone (Mysoline) 50 mg PO HS MULUGETA PRN Reason: Protocol Last Admin: 07/27/17 22:53 Dose: 50 mg Ramipril (Altace) 5 mg PO DAILY MULUGETA PRN Reason: Protocol Last Admin: 07/27/17 11:28 Dose: 5 mg - Labs Labs: 07/27/17 06:30 07/27/17 06:30 Assessment and Plan - Assessment and Plan (Free Text) Assessment: Dyspnea Bilat pl. effusions R>L/s/p right thoracentesis Severe COPD CAD/CABG/MVR/Nl LV on echo with mod. TR AF HBP Plan: Continue metoprolol. Change diltiazem tp ER 240 Daily. Continue Eliquis 2.5 BID and Lasix 40 mg. Daily OOB/PT/Rehab Efforts D/C planning.
[2017-07-28] MEDS: diltiaZEM 240 mg/24 Hours CD Cap PO SCH (09:46)
[2017-07-28] MEDS: POLYETHYLENE GLYCOL 3350 17 GM/Dose PACKET PO SCH ×2 (09:47→17:11)
[2017-07-28] MEDS: Metoprolol Succinate 50 mg XL Tab PO SCH (09:47)
--- NOTE | 2017-07-29 04:28 | DS ---
HISTORY OF PRESENT ILLNESS: This is an 86-year-old female, who has come in to the Transitional Care Unit for rehabilitation. She was having gait dysfunction and was having difficulty ambulating. She has improved. She states her shortness of breath is better. She has no complaints of any chest pain, no shortness of breath, no headache. She had a repeat chest x-ray done that showed a right lower lobe opacity that may be present with some combination of atelectasis and infiltrate and effusion. There is a small residual left effusion. ASSESSMENT AND PLAN: 1. Atrial fibrillation, on anticoagulation. 2. Bilateral pleural effusion, right greater than left. 3. Status post thoracentesis. 4. Coronary artery disease, status post coronary artery bypass graft. 5. Dyslipidemia. 6. Chronic obstructive pulmonary disease. 7. Hypertension. 8. Moderate tricuspid regurgitation. 9. Status post aortic valve replacement. PLAN: The patient is currently comfortable. She is on aspirin. She is going to continue with Cardizem for her atrial fibrillation. She is being followed by Cardiology and Pulmonary. She is on Eliquis for her atrial fibrillation as well. This could be continued. She is on Lipitor for dyslipidemia. She is on MiraLax for constipation. She is going to continue with her Lasix at 40 mg daily. She was advised the importance of followup with her primary care doctor and milk inspector. CONDITION: Stable. ACTIVITIES: Increase as tolerated. FOLLOWUP: 1. Follow up with primary care doctor in 1 week. 2. Follow up with Cardiology in 2 weeks. 3. Follow up with Pulmonary. Wilfred Cheatham MD
--- NOTE | 2017-07-29 07:36 | CP.PCM.PN ---
Subjective - Date & Time of Evaluation Date of Evaluation: 07/29/17 Time of Evaluation: 07:00 - Subjective Subjective: Stable on TCU. No CP or SOB. Ambulating well. V/S noted PE: Lungs: decreased BS bases Cor: irreg, S1S2 Abd: soft Ext.: no edema Neuro.; alert Labs 07/27 noted CXR 07/27 noted. [address] right [address]. effusion Objective - Vital Signs/Intake and Output Vital Signs (last 24 hours): Temp Pulse Resp BP Pulse Ox 98.4 F 72 20 110/51 L 95 07/28/17 17:39 07/28/17 17:39 07/28/17 17:39 07/28/17 17:39 07/28/17 17:39 Intake and Output: 07/29/17 07/29/17 06:59 18:59 Intake Total 240 Balance 240 - Medications Medications: Current Medications Acetaminophen (Tylenol 325mg Tab) 650 mg PO Q6H PRN; Protocol PRN Reason: Pain, moderate (4-7) Alprazolam (Xanax) 0.25 mg PO BID PRN; Protocol PRN Reason: Anxiety Stop: 08/05/17 10:01 Last Admin: 07/28/17 21:34 Dose: 0.25 mg Amlodipine Besylate (Norvasc) 5 mg PO DAILY MULUGETA PRN Reason: Protocol Last Admin: 07/28/17 09:47 Dose: Not Given Apixaban (Eliquis) 2.5 mg PO BID MULUGETA PRN Reason: Protocol Last Admin: 07/28/17 17:11 Dose: 2.5 mg Aspirin (Ecotrin) 81 mg PO 0800 MULUGETA PRN Reason: Protocol Last Admin: 07/28/17 09:46 Dose: 81 mg Atorvastatin Calcium (Lipitor) 20 mg PO DIN MULUGETA PRN Reason: Protocol Last Admin: 07/28/17 17:11 Dose: 20 mg Budesonide (Pulmicort Respules) 0.5 mg IH [id number] MULUGETA PRN Reason: Protocol Last Admin: 07/28/17 19:50 Dose: 0.5 mg Diltiazem HCl (Cardizem Cd) 240 mg PO DAILY [facility] Last Admin: 07/28/17 09:46 Dose: 240 mg Famotidine (Pepcid) 20 mg PO 2200 MULUGETA PRN Reason: Protocol Last Admin: 07/28/17 21:34 Dose: 20 mg Furosemide (Lasix) 40 mg PO DAILY MULUGETA PRN Reason: Protocol Last Admin: 07/28/17 09:46 Dose: Not Given Levalbuterol HCl (Xopenex) 1.25 mg IH TIDRESP MULUGETA PRN Reason: Protocol Last Admin: 07/28/17 19:51 Dose: 1.25 mg Metoprolol Succinate (Toprol Xl) 50 mg PO BRK MULUGETA PRN Reason: Protocol Last Admin: 07/28/17 09:47 Dose: Not Given Polyethylene Glycol (Miralax) 17 gm PO BID MULUGETA PRN Reason: Protocol Last Admin: 07/28/17 17:11 Dose: 17 gm Primidone (Mysoline) 50 mg PO HS MULUGETA PRN Reason: Protocol Last Admin: 07/28/17 21:33 Dose: 50 mg Ramipril (Altace) 5 mg PO DAILY MULUGETA PRN Reason: Protocol Last Admin: 07/28/17 09:46 Dose: Not Given - Labs Labs: 07/27/17 06:30 07/27/17 06:30 Assessment and Plan - Assessment and Plan (Free Text) Assessment: Dyspnea Bilat pl. effusions R>L/s/p right thoracentesis, improved on 07/27 CXR Severe COPD CAD/CABG/MVR/Nl LV on echo with mod. TR AF HBP Plan: Continue metoprolol and diltiazem ER 240 Daily. Continue Eliquis 2.5 BID and Lasix 40 mg. Daily OOB/PT/Rehab Efforts D/C planning> Home today planned.
--- NOTE | 2017-07-29 08:38 | PN ---
DATE: 07/29/2017 PULMONARY NOTE SUBJECTIVE: The patient appears comfortable this morning. She is not short of breath at rest. PHYSICAL EXAMINATION VITAL SIGNS: (Last noted in the computer): Temperature is 98.4, pulse is 72, respirations 18/20, blood pressure 110/51. Oxygen saturation on room air is 95%-97%. HEENT: Normocephalic, atraumatic. No JVD. CARDIOVASCULAR: Systolic ejection murmur at the lower left sternal border. Positive S3 gallop. LUNGS: Decreased breath sounds at the bases with crackles. Very minimal rhonchi. No wheezing. EXTREMITIES: Less edema. No cyanosis, no clubbing. Calves are nontender to palpation. GI: Abdomen is soft, nontender and nondistended. Bowel sounds are positive. SKIN: No acute rash. NEUROLOGIC: Limited at the present time. IMPRESSION: 1. Recurrent congestive heart failure. 2. Large right pleural effusion. Status post thoracentesis. 3. Chronic obstructive pulmonary disease. 4. Mild bronchospasm. 5. Rapid atrial fibrillation. PLAN: The patient appears comfortable this morning. She is not short of breath at rest. She does state to feeling much better overall. On physical exam, her bronchospasm continues to resolve. In addition, the oxygen saturation on room air is now 95%-97%. I will continue the current nebulizer treatments and inhaled steroids for now. Input by Cardiology is noted. The patient remains on Lasix. Clinical status of the patient is significantly improved - compared to the initial presentation. However, again, the future status/prognosis for this elderly patient does remain guarded. I will discuss the above with Dr. Cheatham. José Miguel Kerns MD SHITAL
[2017-07-29] MEDS: Metoprolol Succinate 50 mg XL Tab PO SCH (09:00)
[2017-07-29] MEDS: Budesonide 0.5 mg/2 ml Inhal Susp UD IH SCH (09:01)
[2017-07-29] MEDS: Levalbuterol 1.25 MG/3 ML Inhal Soln UD IH SCH (09:01)
[2017-07-29] MEDS: POLYETHYLENE GLYCOL 3350 17 GM/Dose PACKET PO SCH (10:35)
[2017-07-29] MEDS: diltiaZEM 240 mg/24 Hours CD Cap PO SCH (10:35)
[2017-07-29 10:38] VITALS: BP 124/78
[2017-07-29 11:39] VITALS: PULSE 92; RESP 18; TEMP 97.5; O2SAT 98
== END 2017-07-29 13:52 | disposition home or self-care (01) | DRG 556 ==
LOC: TRCU 14:34
PROVIDERS: ADMIT Internal Medicine Nephrology; ATTEND Internal Medicine Nephrology
PROC: F08Z4FZ Home Management Treatment using Assistive, Adaptive, Supportive or Protective Equipment (ICD-10-PCS; 2017-07-21)
PROC: F07Z9FZ Gait Training/Functional Ambulation Treatment using Assistive, Adaptive, Supportive or Protective Equipment (ICD-10-PCS; principal; 2017-07-22)
PROC: 3E0F7GC Introduction of Other Therapeutic Substance into Respiratory Tract, Via Natural or Artificial Opening (ICD-10-PCS; 2017-07-22)
DX: R26.2 Difficulty in walking, not elsewhere classified (principal); I11.0 Hypertensive heart disease with heart failure; I48.91 Unspecified atrial fibrillation; I50.9 Heart failure, unspecified; J44.9 Chronic obstructive pulmonary disease, unspecified; I36.1 Nonrheumatic tricuspid (valve) insufficiency; I25.10 Atherosclerotic heart disease of native coronary artery without angina pectoris; E78.5 Hyperlipidemia, unspecified; J98.01 Acute bronchospasm; R53.1 Weakness; D64.9 Anemia, unspecified; Z95.2 Presence of prosthetic heart valve; Z95.1 Presence of aortocoronary bypass graft

== ENCOUNTER 2017-08-02 14:56 | Emergency (ER) | payer MEDICARE ==
[2017-08-02 14:58] VITALS: BMI 20.2
--- NOTE | 2017-08-02 15:57 | ED PDOC ---
Arrival/HPI - General Chief Complaint: GI Problem Time Seen by Provider: 08/02/17 14:58 - History of Present Illness Narrative History of Present Illness (Text): 86 y/o F c PMHx HTN, HLD, Afib, COPD recently discharged from hospital for pleural effusions p/w constipation x 4 days. Patient states she feels as though she needs to have a bowel movement but can not pass any stool. She states she gets intermittent cramping pain when she feels the urge to defecate but otherwise denies any pain. She denies fever, nausea, vomiting, dyspnea, abdominal pain, bleeding, pain medication use. She attempted a suppository and Miralax at home without relief. Past Medical History - Infectious Disease Hx of Infectious Diseases: None - Tetanus Immunization Tetanus Immunization: Unknown - Cardiac Hx Cardiac Disorders: Yes Hx Hypertension: Yes - Pulmonary Hx Chronic Obstructive Pulmonary Disease (COPD): Yes - Neurological Hx Neurological Disorder: No - HEENT Hx HEENT Disorder: Yes (post nasal drip) Hx Cataracts: Yes (Bilateral surgery) - Renal Hx Renal Disorder: No - Endocrine/Metabolic Hx Endocrine Disorders: No - Hematological/Oncological Hx Blood Disorders: No - Integumentary Hx Dermatological Disorder: Yes Other/Comment: dry skin ble, light brown moles over back, chest, abd, varicose veins, smallcut to r 2nd toe from scissor when "I was cutting my toenails" pt stated, thick hard toenails to both great toes, mid chest scar from open heart sx - Musculoskeletal/Rheumatological Hx Falls: No - Gastrointestinal Hx Gastrointestinal Disorders: Yes (CONSTIPATION) - Genitourinary/Gynecological Hx Genitourinary Disorders: Yes (URGENCY,FREQUENCY,SOME INCONTINENCY) - Psychiatric Hx Substance Use: No - Surgical History Hx Cholecystectomy: Yes 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.) - Anesthesia Hx Anesthesia Reactions: No Hx Malignant Hyperthermia: No - Suicidal Assessment Feels Threatened In Home Enviroment: No Family/Social History Family/Social History: No Known Family HX Smoking Status: Never Smoked Hx Alcohol Use: No Hx Substance Use: No Hx Substance Use Treatment: No Allergies/Home Meds Allergies/Adverse Reactions: Allergies No Known Allergies Allergy (Verified 08/02/17 15:20) Home Medications: Home Meds Medication Instructions Recorded Confirmed ALPRAZolam [Xanax] 0.25 mg PO BID 06/15/17 08/02/17 Atorvastatin [Lipitor] 20 mg PO DAILY 06/15/17 08/02/17 Metoprolol Succinate [Toprol XL] 50 mg PO DAILY 06/15/17 08/02/17 Omeprazole Magnesium [Prilosec Otc] 20 mg PO BID 06/15/17 08/02/17 Primidone [Mysoline] 50 mg PO DAILY 06/15/17 08/02/17 Ramipril [Altace] 5 mg PO DAILY 06/15/17 08/02/17 amLODIPine [Norvasc] 5 mg PO DAILY 06/15/17 08/02/17 Review of Systems - Physician Review All systems were reviewed & negative as marked: Yes - Review of Systems Constitutional: absent: Fevers Respiratory: absent: SOB Physical Exam - Physical Exam Narrative Physical Exam (Text): Gen: NAD Head: NC Eyes: No scleral icterus ENT: MMM Neck: Supple Chest: No tenderness CV: Regular rate Lungs: CTA b/l Abd: Soft, NT, ND Back: No CVA tenderness Rectal: (Yonis Zamora legal contracts specialist) no rectal impaction, hard stool in rectum, no bleeding, no prolapse Skin: No rash Neuro: Alert, no focal deficit Vital Signs Temp Pulse Resp BP Pulse Ox 08/02/17 18:43 98.3 F 92 H 16 141/70 97 08/02/17 15:09 98.1 F 68 18 135/82 97 Medical Decision Making ED Course and Treatment: CT to rule out obstruction. Check labs and administer soap suds enema. Magnesium citrate administered without success. I offered the patient rectal disimpaction but she refused and requested oral medications instead. Will give GI follow up. Instructed to return for worsening pain, fever, vomiting, or any other problem. - Lab Interpretations Lab Results: 08/02/17 16:22 08/02/17 16:22 Lab Results 08/02/17 16:22: Sodium 135, Potassium 4.2, Chloride 99, Carbon Dioxide 26, Anion Gap 15, BUN 22 H, Creatinine 1.1, Est GFR ( Amer) 57, Est GFR (Non- Af Amer) 47, Random Glucose 176 H, Calcium 9.0, Total Bilirubin 0.5, AST 37 H, ALT 22, Alkaline Phosphatase 144 H D, Total Protein 6.6, Albumin 3.6, Globulin 3.1, Albumin/Globulin Ratio 1.2 08/02/17 16:22: WBC 11.8 H D, RBC 3.88, Hgb 11.1 L, Hct 35.5 L, MCV 91.5, MCH 28.6, MCHC 31.3, RDW 14.7 H, Plt Count 229, MPV 10.6, Gran % 88.7 H, Lymph % ( Auto) 6.5 L, [place] % (Auto) 4.3, Eos % (Auto) 0.2 L, Baso % (Auto) 0.3, Gran # 10.50 H, Lymph # (Auto) 0.8 L, [place] # (Auto) 0.5, Eos # (Auto) 0.0, Baso # (Auto ) 0.03 - RAD Interpretation Radiology Orders: 08/02/17 15:51 ABD & PELVIS W/O PO OR IV CONT [CT] Stat - Medication Orders Current Medication Orders: Discontinued Medications Acetaminophen (Tylenol 325mg Tab) 650 mg PO STAT STA Stop: 08/02/17 18:33 Last Admin: 08/02/17 18:41 Dose: 650 mg MAR Pain/Vitals Document 08/02/17 18:41 MS (Rec: 08/02/17 18:43 MS [id number]) Pain Reassessment Is This A Pain ReAssessment? No Sleep Is patient sleeping during reassessment? No Presence of Pain Presence of Pain Yes Pain Scale Used Pain Scale Used Numeric Location Pain Location Body Site Rectum Description Intermittent Pain Behavior Moaning Crying Screaming Magnesium Citrate (Citrate Of Mag) 300 ml PO ONCE ONE Stop: 08/02/17 17:22 Last Admin: 08/02/17 17:38 Dose: 300 ml Disposition/Present on Arrival - Present on Arrival Any Indicators Present on Arrival: No History of DVT/PE: No History of Uncontrolled Diabetes: No Urinary Catheter: No History of Decub. Ulcer: No History Surgical Site Infection Following: None - Disposition Have Diagnosis and Disposition been Completed?: Yes Diagnosis: Constipation Disposition: HOME/ ROUTINE Disposition Time: 18:51 Patient Plan: Discharge Condition: STABLE Discharge Instructions (ExitCare): Constipation, Adult (DC), High Fiber Diet Prescriptions: Docusate [Colace] 100 mg PO BID #30 cap Polyethylene Glycol 3350 [Miralax] 17 gm PO DAILY #238 gm Referrals: Wilfred Cheatham MD [Primary Care Provider] - Follow up with primary Roxanne Harrison MD [Medical Doctor] - Follow up with primary Forms: food.de (Sudanese)
[2017-08-02 16:52] LABS: BASO # 0.03 K/mm3 (0.0-2.0); BASO % 0.3 % (0.0-3.0); EOS % 0.2 % (1.5-5.0); GRAN # 10.5 (1.4-6.5); GRAN % 88.7 % (50.0-68.0); HEMOGLOBIN 11.1 g/dL (12.0-16.0); LYMPH # 0.8 (1.2-3.4); LYMPH % 6.5 % (22.0-35.0); MEAN CELL VOLUME 91.5 fl (80.0-105.0); MEAN CORPUSCULAR HEMOGLOBIN 28.6 pg (25.0-35.0); MEAN CORPUSCULAR HGB CONC 31.3 g/dl (31.0-37.0); MEAN PLATELET VOLUME 10.6 fl (7.0-11.0); MONO # 0.5 (0.1-0.6); MONO % 4.3 % (1.0-6.0); RBC 3.88 10^6/uL (3.5-6.1); RED CELL DISTRIBUTION WIDTH 14.7 % (11.5-14.5); WHITE BLOOD COUNT 11.8 10^3/ul (4.5-11.0)
[2017-08-02 17:08] LABS: ALB/GLOB RATIO 1.2 (1.1-1.8); ALBUMIN 3.6 g/dL (3.0-4.8)
[2017-08-02] MEDS ORDERED: Magnesium Citrate Oral SOL (300 ml) PO ONE (17:21)
[2017-08-02 18:44] VITALS: BP 141/70; RESP 16
--- NOTE | 2017-08-02 18:45 | CT ---
PROCEDURE: CT Abdomen and Pelvis without intravenous contrast HISTORY: constipation, r/o obstruction COMPARISON: 09/18/2014 CT abdomen and pelvis TECHNIQUE: Unenhanced study. Neither oral nor intravenous contrast administered. Radiation dose: Total exam DLP = Ts 0.06 mGy-cm. This CT exam was performed using one or more of the following dose reduction techniques: Automated exposure control, adjustment of the mA and/or kV according to patient size, and/or use of iterative reconstruction technique. FINDINGS: LOWER THORAX: Trace right pleural effusion. Associated atelectasis right lower lobe Hiatal hernia, at the thoracic component of the stomach is fluid filled Cardiomegaly, mitral valve prosthesis identified. No pericardial effusion identified. LIVER: UnremarkablePrint. No gross lesion or ductal dilatation. GALLBLADDER AND BILE DUCTS: Status post cholecystectomy. No abnormality is seen in the gallbladder fossa. PANCREAS: Unremarkable. No gross lesion or ductal dilatation. SPLEEN: Unremarkable. ADRENALS: Unremarkable. No mass. KIDNEYS AND URETERS: Right kidney: Unremarkable. No obstruction. No gross mural thickening. Left kidney: Atrophic left kidney. Simple cyst 2.3 cm. Similar findings identified previously. VASCULATURE: Unremarkable. No aortic aneurysm. BOWEL: Distended stomach with large air-fluid level. Fecal impaction, constipation. No abnormalities at innocent mass Timoptic suture line following resection of portions of the rectum. Ascending colon is nondilated. Dilatation of the transverse colon ascending colon and cecum APPENDIX: No abnormalities to suggest acute appendicitis. No right lower quadrant inflammatory processes identified. PERITONEUM: Unremarkable. No free fluid. No free air. LYMPH NODES: Unremarkable. No enlarged lymph nodes. BLADDER: Unremarkable. REPRODUCTIVE: Prior hysterectomy BONES: No acute fracture. OTHER FINDINGS: None. IMPRESSION: Constipation/fecal impaction without mechanical obstruction. No abnormalities at the level of the anastomotic suture line in the rectum. No evidence of small-bowel obstruction. The stomach and hiatal hernia are distended and fluid-filled. Additional benign and/or incidental findings described above.
[2017-08-02 21:21] VITALS: PULSE 101; TEMP 97.9; O2SAT 99
== END 2017-08-02 19:00 | disposition home or self-care (01) ==
LOC: ED 14:56
DX: K59.00 Constipation, unspecified (principal); I10 Essential (primary) hypertension; E78.5 Hyperlipidemia, unspecified; I48.91 Unspecified atrial fibrillation; J44.9 Chronic obstructive pulmonary disease, unspecified

== ENCOUNTER 2018-01-02 18:19 | Inpatient (IN) | payer MEDICARE ==
--- NOTE | 2018-01-02 18:43 | ED PDOC ---
Arrival/HPI - General Time Seen by Provider: 01/02/18 18:29 Historian: Patient, Family - History of Present Illness Narrative History of Present Illness (Text): 01/02/18 18:38 87 year old female, whose past medical history includes chronic abdominal issues , hypertension, HLD, Afib, COPD, and a nervous condition where she takes alprazalem, who presents to the Emergency Department complaining of abdominal pain and diarrhea x a coupe days. Patient's family member states patient has been weak, shaky, "eating like a bird", and hasn't been taking medication correctly. Jasmine's family member also states she isn't answerng question correctly. Patient has a house call with Dr. Plata on Tuesday. Time/Duration: < week Symptom Onset: Gradual Symptom Course: Unchanged Activities at Onset: Light Context: Home Past Medical History - Provider Review Nursing Documentation Reviewed: Yes - Infectious Disease Hx of Infectious Diseases: None - Tetanus Immunization Tetanus Immunization: Unknown - Cardiac Hx Cardiac Disorders: Yes Hx Hypertension: Yes - Pulmonary Hx Chronic Obstructive Pulmonary Disease (COPD): Yes - Neurological Hx Neurological Disorder: No - HEENT Hx HEENT Disorder: Yes (post nasal drip) Hx Cataracts: Yes (Bilateral surgery) - Renal Hx Renal Disorder: No - Endocrine/Metabolic Hx Endocrine Disorders: No - Hematological/Oncological Hx Blood Disorders: No - Integumentary Hx Dermatological Disorder: Yes Other/Comment: dry skin ble, light brown moles over back, chest, abd, varicose veins, smallcut to r 2nd toe from scissor when "I was cutting my toenails" pt stated, thick hard toenails to both great toes, mid chest scar from open heart sx - Musculoskeletal/Rheumatological Hx Falls: No - Gastrointestinal Hx Gastrointestinal Disorders: Yes (CONSTIPATION) - Genitourinary/Gynecological Hx Genitourinary Disorders: Yes (URGENCY,FREQUENCY,SOME INCONTINENCY) - Psychiatric Hx Substance Use: No - Surgical History Hx Cholecystectomy: Yes 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.) - Anesthesia Hx Anesthesia Reactions: No Hx Malignant Hyperthermia: No - Suicidal Assessment Feels Threatened In Home Enviroment: No Family/Social History - Physician Review Nursing Documentation Reviewed: Yes Family/Social History: Unknown Family HX Smoking Status: Never Smoked Hx Alcohol Use: No Hx Substance Use: No Hx Substance Use Treatment: No Allergies/Home Meds Allergies/Adverse Reactions: Allergies No Known Allergies Allergy (Verified 08/02/17 15:20) Home Medications: Home Meds Medication Instructions Recorded Confirmed ALPRAZolam [Xanax] 0.25 mg PO BID 06/15/17 01/02/18 Atorvastatin [Lipitor] 20 mg PO DAILY 06/15/17 01/02/18 Metoprolol Succinate XL [Toprol XL] 50 mg PO DAILY 06/15/17 01/02/18 Omeprazole Magnesium [Prilosec Otc] 20 mg PO BID 06/15/17 01/02/18 Primidone [Mysoline] 50 mg PO DAILY 06/15/17 01/02/18 Ramipril [Altace] 5 mg PO DAILY 06/15/17 01/02/18 amLODIPine [Norvasc] 5 mg PO DAILY 06/15/17 01/02/18 Review of Systems - Physician Review All systems were reviewed & negative as marked: Yes - Review of Systems Constitutional: Normal Eyes: Normal ENT: Normal Respiratory: Normal. absent: SOB, Cough Cardiovascular: Normal. absent: Chest Pain Gastrointestinal: Abdominal Pain, Diarrhea. absent: Nausea, Vomiting Genitourinary Female: Normal. absent: Dysuria, Frequency, Hematuria Musculoskeletal: Normal. absent: Back Pain, Neck Pain Skin: Normal. absent: Rash Neurological: Normal. absent: Headache, Dizziness Endocrine: Normal Hemo/Lymphatic: Normal Psychiatric: Normal Physical Exam Vital Signs Temp Pulse Resp BP Pulse Ox 01/02/18 21:00 97.8 F 78 20 110/65 94 L 01/02/18 19:31 97.6 F 77 18 96/65 L 95 01/02/18 18:42 97.4 F L 82 18 95/68 L 94 L - Systems Exam Head: Present: Atraumatic, Normocephalic Pupils: Present: PERRL Extroacular Muscles: Present: EOMI Conjunctiva: Present: Normal Mouth: Present: Moist Mucous Membranes Neck: Present: Normal Range of Motion Respiratory/Chest: Present: Clear to Auscultation, Good Air Exchange. No: Respiratory Distress, Accessory Muscle Use Cardiovascular: Present: Regular Rate and Rhythm, Normal S1, S2. No: Murmurs Abdomen: No: Tenderness, Distention, Peritoneal Signs Back: Present: Normal Inspection Upper Extremity: Present: Normal Inspection. No: Cyanosis, Edema Lower Extremity: Present: Normal Inspection. No: Edema Neurological: Present: GCS=15, CN II-XII Intact, Speech Normal Skin: Present: Warm, Dry, Normal Color. No: Rashes Psychiatric: Present: Alert, Oriented x 3, Normal Insight, Normal Concentration Medical Decision Making ED Course and Treatment: 01/02/18 18:44 Impression: 87 year old female presents to the Emergency Department complaining of abdominal pain and diarrhea x couple days. Plan: -- CT abd/pelvis -- Labs -- CXR -- Urine Culture -- UA -- Reassess and disposition Progress Notes: 01/02/18 19:19 EKG reviewed, shows Afib a [address] abnormality. 01/02/18 21:05 CT abd/pelvis reviewed, shows: IMPRESSION: Small left pleural effusion - Lab Interpretations Microbiology Results: Microbiology Results 01/02/18 21:31 Urine,Clean Catch Urine Culture - Final No Growth (<1,000 CFU/ML) Lab Results: 01/02/18 18:57 01/02/18 18:57 Lab Results 01/02/18 23:52: pCO2 41, pO2 81.0, HCO3 23.2, ABG pH 7.36, ABG Total CO2 24.5, ABG O2 Saturation 97.9, ABG Base Excess -2.2 L, ABG Potassium 3.8, Glucose 161 H , Lactate 1.7, FiO2 28.0, Sodium 129.0 L, Chloride 96.0 L, Arterial Blood Potassium 3.8 01/02/18 21:31: Urine Color Yellow, Urine Appearance Clear, Urine pH 5.5, Ur Specific [place] 1.010, Urine Protein Negative, Urine Glucose (UA) Negative, Urine Ketones Trace H, Urine Blood Negative, Urine Nitrate Negative, Urine Bilirubin Negative, Urine Urobilinogen 0.2, Ur Leukocyte Esterase Negative 01/02/18 18:57: Sodium 135, Potassium 4.4, Chloride 97 L, Carbon Dioxide 26, Anion Gap 17, BUN 21, Creatinine 1.1, Est GFR ( Amer) 57, Est GFR (Non- Af Amer) 47, Random Glucose 117 H, Calcium 9.0, Phosphorus 5.2 H, Magnesium 1.8 , Total Bilirubin 0.3, AST 40 H, ALT 16, Alkaline Phosphatase 174 H D, Lactate Dehydrogenase 582, Total Creatine Kinase 53, Troponin I 0.05 D, Total Protein 7.3, Albumin 4.2, Globulin 3.2, Albumin/Globulin Ratio 1.3, Lipase 119 01/02/18 18:57: PT 10.9, INR 0.96 01/02/18 18:57: WBC 13.5 H, RBC 3.87, Hgb 11.1 L, Hct 35.3 L, MCV 91.2, MCH 28.7 , MCHC 31.4, RDW 14.7 H, Plt Count 217, MPV 10.9, Gran % 80.1 H, Lymph % (Auto) 10.2 L, [place] % (Auto) 8.5 H, Eos % (Auto) 0.9 L, Baso % (Auto) 0.3, Gran # 10.80 H, Lymph # (Auto) 1.4, [place] # (Auto) 1.1 H, Eos # (Auto) 0.1, Baso # (Auto ) 0.04 - RAD Interpretation Radiology Orders: 01/02/18 18:40 ABD PELVIS PO & IV CONTRAST [CT] Stat CHEST PORTABLE [RAD] Stat - Medication Orders Current Medication Orders: Acetaminophen (Tylenol 325mg Tab) 650 mg PO Q4H PRN PRN Reason: Pain, severe (8-10) Last Admin: 01/05/18 14:27 Dose: 650 mg [facility] Pain/Vitals Document 01/05/18 14:27 RV (Rec: 01/05/18 14:28 [email or web address]) Pain Reassessment Is This A Pain ReAssessment? No Sleep Is patient sleeping during reassessment? No Presence of Pain Presence of Pain No Pain Scale Used Pain Scale Used Numeric Location Left, Right or Bilateral Bilateral Pain Location Body Site Shoulder Description Intermittent Sharp Intensity 10 Scale Used Numeric Radiation Location across neck and post shoulders Pain Behavior Irritability Restlessness Facial Grimacing Aggravating Factors ADL's Changing Position Alleviating Factors Medication Re-Assess: REAGAN Pain/Vitals Document 01/05/18 15:27 RV (Rec: 01/05/18 17:09 [id number] Pain Reassessment Is This A Pain ReAssessment? Yes Sleep Is patient sleeping during reassessment? Yes Presence of Pain Presence of Pain Yes Pain Scale Used Pain Scale Used Numeric Location Left, Right or Bilateral Bilateral Pain Location Body Site Shoulder Description Intermittent Sharp Intensity 4 Scale Used Numeric Albuterol/Ipratropium (Duoneb 3 Mg/0.5 Mg (3 Ml) Ud) 3 ml IH [id number] [facility] Last Admin: 01/06/18 01:10 Dose: 3 ml Albuterol/Ipratropium (Duoneb 3 Mg/0.5 Mg (3 Ml) Ud) 3 ml IH Q2H PRN PRN Reason: Shortness of Breath Last Admin: 01/03/18 08:35 Dose: 3 ml Alprazolam (Xanax) 0.25 mg PO BID [facility] PRN Reason: Protocol Stop: 01/10/18 10:01 Last Admin: 01/05/18 17:08 Dose: 0.25 mg Behavioural Document 01/05/18 17:08 RV (Rec: 01/05/18 17:08 RV [id number]) Maintenance Maintenance Dose Yes Nonmedicinal Nonmedicinal Interventions Redirect Therapeutic Communication Behavior Behavior for Medication: Anxiety Amlodipine Besylate (Norvasc) 5 mg PO DAILY [facility] Last Admin: 01/05/18 10:12 Dose: Not Given Non-Admin Reason: BP Parameters Not Met MAR Pulse and Blood Pressure Document 01/05/18 10:12 RV (Rec: 01/05/18 10:12 [id number]) Pulse Pulse Rate (60-90) 96 Blood Pressure Blood Pressure (100/60-150/90) 91/61 Aspirin (Ecotrin) 81 mg PO DAILY [facility] Last Admin: 01/05/18 10:15 Dose: 81 mg Atorvastatin Calcium (Lipitor) 20 mg PO HS [facility] Last Admin: 01/05/18 21:06 Dose: 20 mg Budesonide (Pulmicort Respules) 0.5 mg IH [id number] [facility] Last Admin: 01/05/18 19:50 Dose: 0.5 mg Docusate Sodium (Colace) 100 mg PO BID [facility] Last Admin: 01/05/18 17:07 Dose: 100 mg Doxycycline Hyclate (Doryx) 100 mg PO Q12 [facility] PRN Reason: Protocol Last Admin: 01/05/18 21:06 Dose: 100 mg Enoxaparin Sodium (Lovenox) 30 mg SC Q12H [facility] PRN Reason: Protocol Last Admin: 01/05/18 21:09 Dose: 30 mg Subcutaneous Administrations Document 01/05/18 21:09 ZARAL (Rec: 01/05/18 21:09 [id number]) Injection Site MAR Injection Site Right Arm Charges for Administration # of Subcutaneous Administrations 1 Fluticasone Propionate (Flonase) 1 actuation NS DAILY [facility] Last Admin: 01/05/18 10:10 Dose: 1 spray Furosemide (Lasix) 40 mg IVP DAILY [facility] Last Admin: 01/05/18 14:00 Dose: 40 mg MAR Blood Pressure Document 01/05/18 14:00 RV (Rec: 01/05/18 14:01 [email or web address]) Blood Pressure Blood Pressure (100/60-150/90) 105/72 IVP Administration Document 01/05/18 14:00 RV (Rec: 01/05/18 14:01 [email or web address]) Charges for Administration # of IVP Administrations 1 Cefepime HCl (Maxipime 2gm) 2 gm in 100 mls @ 100 mls/hr IVPB Q12 [facility] PRN Reason: Protocol Stop: 01/10/18 10:01 Last Admin: 01/05/18 21:06 Dose: 100 mls/hr eMAR Start Stop Document 01/05/18 21:06 [facility] (Rec: 01/05/18 21:06 [email or web address]) Intravenous Solution Start Date 01/05/18 Start Time 09:00 End Date 01/05/18 End time 10:00 Total Infusion Time 60 Metoprolol Succinate (Toprol Xl) 50 mg PO DAILY [facility] Last Admin: 01/05/18 10:15 Dose: Not Given Non-Admin Reason: BP Parameters Not Met [facility] Pulse and Blood Pressure Document 01/05/18 10:15 RV (Rec: 01/05/18 10:15 [email or web address]) Pulse Pulse Rate (60-90) 96 Blood Pressure Blood Pressure (100/60-150/90) 91/61 Ondansetron HCl (Zofran Inj) 4 mg IVP Q8 PRN PRN Reason: Nausea/Vomiting Last Admin: 01/05/18 14:29 Dose: 4 mg IVP Administration Document 01/05/18 14:29 RV (Rec: 01/05/18 14:30 [email or web address]) Charges for Administration # of IVP Administrations 1 Pantoprazole Sodium (Protonix Ec Tab) 40 mg PO 0600 [facility] Last Admin: 01/04/18 05:15 Dose: 40 mg Primidone (Mysoline) 50 mg PO DAILY [facility] Last Admin: 01/05/18 10:14 Dose: 50 mg Ramipril (Altace) 2.5 mg PO DAILY [facility] Discontinued Medications Albuterol Sulfate (Albuterol 0.083% Inhal [place] (2.5 Mg/3 Ml) Ud) 2.5 mg INH STAT STA Stop: 01/02/18 21:46 Last Admin: 01/02/18 21:50 Dose: 2.5 mg Albuterol Sulfate (Albuterol 0.083% Inhal [place] (2.5 Mg/3 Ml) Ud) 2.5 mg INH STAT STA Stop: 01/02/18 23:29 Last Admin: 01/02/18 23:45 Dose: 2.5 mg Alprazolam (Xanax) 0.5 mg PO STAT STA PRN Reason: Protocol Stop: 01/02/18 21:14 Last Admin: 01/02/18 21:51 Dose: 0.5 mg Re-Assess: Reassess Psych Meds Document 01/02/18 22:51 RR (Rec: 01/02/18 23:48 RR [id number]) Reassess Psych Med Effective Enoxaparin Sodium (Lovenox) 30 mg SC Q12H [facility] PRN Reason: Protocol Last Admin: 01/04/18 15:27 Dose: 30 mg Subcutaneous Administrations Document 01/04/18 15:27 [facility] (Rec: 01/04/18 15:27 [facility] [id number]) Injection Site MAR Injection Site Right Abdomen Charges for Administration # of Subcutaneous Administrations 1 Furosemide (Lasix) 40 mg IVP STAT STA Stop: 01/03/18 13:17 Last Admin: 01/03/18 15:25 Dose: Not Given Non-Admin Reason: BP Parameters Not Met MAR Blood Pressure Document 01/03/18 15:25 SML (Rec: 01/03/18 15:25 SML [email or web address]) Blood Pressure Blood Pressure (100/60-150/90) 80/50 Cefepime HCl (Maxipime 1gm) 1 gm in 100 mls @ 100 mls/hr IVPB Q12 [facility] PRN Reason: Protocol Last Admin: 01/04/18 21:01 Dose: 100 mls/hr eMAR Start Stop Document 01/04/18 21:01 RS (Rec: 01/04/18 21:01 RS [id number]) Intravenous Solution Start Date 01/04/18 Start Time 21:01 End Date 01/04/18 End time 22:01 Total Infusion Time 60 Vancomycin HCl (Vancomycin 1gm) 1 gm in 250 mls @ 167 mls/hr IVPB Q12H [facility] PRN Reason: Protocol Last Admin: 01/05/18 01:49 Dose: 167 mls/hr eMAR Start Stop Document 01/05/18 01:49 RS (Rec: 01/05/18 01:49 RS [id number]) Intravenous Solution Start Date 01/05/18 Start Time 01:49 End Date 01/05/18 End time 03:19 Total Infusion Time 90 Pantoprazole Sodium (Protonix Ec Tab) 40 mg PO 0600 [facility] Pantoprazole Sodium (Protonix Ec Tab) 40 mg PO STAT STA Stop: 01/03/18 18:59 Last Admin: 01/03/18 20:30 Dose: 40 mg Phenazopyridine HCl (Pyridium) 100 mg PO STAT STA Stop: 01/02/18 21:46 Last Admin: 01/02/18 21:53 Dose: 100 mg Potassium Chloride (Klor-Con 10) 10 meq PO BRK [facility] Last Admin: 01/04/18 08:34 Dose: 10 meq Ramipril (Altace) 5 mg PO DAILY [facility] Last Admin: 01/04/18 10:16 Dose: 5 mg MAR Blood Pressure Document 01/04/18 10:16 [facility] (Rec: 01/04/18 10:17 [facility] [id number]) Blood Pressure Blood Pressure (100/60-150/90) 93/53 - Scribe Statement The provider has reviewed the documentation as recorded by the Scribtimbo Ya All medical record entries made by the Lizzibtimbo were at my direction and personally dictated by me. I have reviewed the chart and agree that the record accurately reflects my personal performance of the history, physical exam, medical decision making, and the department course for this patient. I have also personally directed, reviewed, and agree with the discharge instructions and disposition. Disposition/Present on Arrival - Present on Arrival Any Indicators Present on Arrival: No History of DVT/PE: No History of Uncontrolled Diabetes: No Urinary Catheter: No History Surgical Site Infection Following: None - Disposition Have Diagnosis and Disposition been Completed?: Yes Diagnosis: Benzodiazepine withdrawal, Altered mental status Disposition: HOSPITALIZED Disposition Time: 03:02 Patient Plan: Admission Condition: FAIR
[2018-01-02] MEDS ORDERED: Iohexol 240 (50 ml) ONE (19:07)
[2018-01-02 19:21] LABS: BASO # 0.04 K/mm3 (0.0-2.0); BASO % 0.3 % (0.0-3.0); EOS # 0.1 (0.0-0.7); EOS % 0.9 % (1.5-5.0); GRAN # 10.8 (1.4-6.5); GRAN % 80.1 % (50.0-68.0); HEMOGLOBIN 11.1 g/dL (12.0-16.0); LYMPH # 1.4 (1.2-3.4); LYMPH % 10.2 % (22.0-35.0); MEAN CELL VOLUME 91.2 fl (80.0-105.0); MEAN CORPUSCULAR HEMOGLOBIN 28.7 pg (25.0-35.0); MEAN CORPUSCULAR HGB CONC 31.4 g/dl (31.0-37.0); MEAN PLATELET VOLUME 10.9 fl (7.0-11.0); MONO # 1.1 (0.1-0.6); MONO % 8.5 % (1.0-6.0); RBC 3.87 10^6/uL (3.5-6.1); RED CELL DISTRIBUTION WIDTH 14.7 % (11.5-14.5); WHITE BLOOD COUNT 13.5 10^3/ul (4.5-11.0)
[2018-01-02 19:22] LABS: INR 0.96; PROTHROMBIN TIME 10.9 SECONDS (9.4-12.5)
[2018-01-02 19:27] LABS: ALB/GLOB RATIO 1.3 (1.1-1.8); ALBUMIN 4.2 g/dL (3.0-4.8)
[2018-01-02 19:38] LABS: TROPONIN I 0.05 ng/mL
[2018-01-02] MEDS ORDERED: Iohexol 350 MG/100 ML VIAL ONE (20:14)
[2018-01-02] MEDS ORDERED: Albuterol 0.083% Inhal Sol (2.5 mg/3 mL) UD INH STA ×2 (21:45→23:28)
[2018-01-02 21:47] LABS: PH,URINE 5.5 (4.7-8.0); URINE BILIRUBIN NEGATIVE (NEGATIVE); URINE BLOOD NEGATIVE (NEGATIVE); URINE GLUCOSE (UA) NEGATIVE (NEGATIVE); URINE LEUKOCYTE ESTERASE NEGATIVE Leu/uL (NEGATIVE); URINE PROTEIN NEGATIVE mg/dL (<30 mg/dL); URINE UROBILINOGEN 0.2 E.U./dL (<1 E.U./dL)
[2018-01-02 21:52] LABS: URINE APPEARANCE CLEAR (CLEAR); URINE COLOR YELLOW (YELLOW)
[2018-01-03] LABS: ARTERIAL BLOOD GAS HCO3 23.2 mmol/L (21-28); ARTERIAL BLOOD GAS O2 SAT 97.9 % (95-98); ARTERIAL BLOOD GAS PCO2 41 mm/Hg (35-45); ARTERIAL BLOOD GAS PH 7.36 (7.35-7.45); ARTERIAL BLOOD GAS TCO2 24.5 mmol.L (22-28)
[2018-01-03] MEDS ORDERED: Albuterol 0.083% Inhal Sol (2.5 mg/3 mL) UD INH PRN (04:58)
[2018-01-03] MEDS ORDERED: Albuterol-Ipratrop 3 mg / 0.5 (3 ml) UD IH PRN (08:27)
--- NOTE | 2018-01-03 08:48 | CT ---
Date of service: 01/02/2018 PROCEDURE: CT Abdomen and Pelvis with contrast HISTORY: aBDOMINAL pAIN, wT lOSS, dIARRHEA, cONSTIPATION COMPARISON: None. TECHNIQUE: Contrast dose: 100 cc of Omni 350 Radiation dose: Total exam DLP = 328 mGy-cm. This CT exam was performed using one or more of the following dose reduction techniques: Automated exposure control, adjustment of the mA and/or kV according to patient size, and/or use of iterative reconstruction technique. FINDINGS: LOWER THORAX: Small pleural effusions LIVER: Unremarkable. No gross lesion or ductal dilatation. GALLBLADDER AND BILE DUCTS: Gallbladder removed PANCREAS: Unremarkable. No gross lesion or ductal dilatation. SPLEEN: Unremarkable. ADRENALS: Unremarkable. No mass. KIDNEYS AND URETERS: Atrophy of the left kidney VASCULATURE: Unremarkable. No aortic aneurysm. BOWEL: Unremarkable. No obstruction. No gross mural thickening. Hiatal hernia APPENDIX: Normal appendix. PERITONEUM: Unremarkable. No free fluid. No free air. LYMPH NODES: Unremarkable. No enlarged lymph nodes. BLADDER: Unremarkable. REPRODUCTIVE: Unremarkable. BONES: No acute fracture. OTHER FINDINGS: The report concurs with the preliminary [facility] report IMPRESSION: No acute intra-abdominal findings
[2018-01-03] MEDS: Metoprolol Succinate 50 mg XL Tab PO SCH (11:03)
--- NOTE | 2018-01-03 11:20 | CON ---
Copied To: José Miguel Kerns MD Attending MD: José Miguel Kerns MD DATE: 01/03/2018 PULMONARY CONSULTATION REASON FOR CONSULTATION: Chronic obstructive pulmonary disease. REFERRING PHYSICIAN: Wilfred Cheatham MD. HISTORY OF PRESENT ILLNESS: History is obtained via extensive discussion with the nurse. I have also reviewed the chart at length, and discussed the case with the patient at length. The patient is an 87-year-old female, with past medical history significant for advanced chronic obstructive pulmonary disease, admitted noncompliance with all pulmonary medications, congestive heart failure, chronic pleural effusions, coronary artery disease, atrial fibrillation, who presents with main complaints of increasing abdominal pain and diarrhea for the past 2 days. The patient denies vomiting, but does state that she is extremely weak at home. She was thus admitted for additional evaluation and treatment. The patient is not short of breath at rest. She does have chronic dyspnea on exertion. She also has a chronic occasional cough with occasional sputum production - also unchanged. There is no history of chest pain, coughing up of blood or chest pain - made worse with deep respirations. There is no history of temperatures, chills or infectious exposure. There is no history of night sweats, weight loss or appetite change prior to the above events. No history of calf pains. No history of syncope or diaphoresis. No history of recent travel or trauma. REVIEW OF SYSTEMS: The patient does complain of a constant postnasal drip. No acute urinary symptoms. No new neurologic or musculoskeletal complaints. Rest of the review of systems is negative. ALLERGIES: NO KNOWN ALLERGIES. SOCIAL HISTORY: Positive for tobacco. Negative for alcohol. FAMILY HISTORY: No inheritable diseases. HOME MEDICATIONS: Include Norvasc, Altace, Colace, Xanax, Toprol, Flonase, Lipitor, Mysoline, MiraLax. PHYSICAL EXAMINATION: GENERAL: The patient is not short of breath at rest. She is not using accessory muscles for breathing. She does appear very weak. VITAL SIGNS: Temperature is 97.6, pulse 90, respirations 18, blood pressure 106/73. Oxygen saturation on nasal cannula is 94%. HEENT: Normocephalic, atraumatic. No JVD. CARDIOVASCULAR: Systolic ejection murmur at the lower left sternal border. No S3 gallop. LUNGS: Decreased breath sounds at the bases. Mild bilateral rhonchi. No wheezing. EXTREMITIES: Mild edema. No cyanosis. No clubbing. Calves are nontender to palpation. GI: Abdomen is soft, nontender and nondistended. Bowel sounds are positive. SKIN: No acute rash. NEUROLOGIC: Limited at the present time. PERTINENT LABORATORY DATA: Chest x-ray was done yesterday and reviewed. There is no acute disease noted. I did review the last film done - prior to this admission. On 07/27/2017, the chest x-ray showed a moderate right pleural effusion. The pleural effusion is not evident at this point in time. CBC: White count 13.5K, hemoglobin 11.1, hematocrit 35.3, platelets of 217,000. Arterial blood gas was done on 2 L nasal cannula. Results are: PH 7.36, pCO2 of 41, pO2 of 81. Complete metabolic profile: Chloride 97, glucose 117, phosphorus 5.2, AST 40, alkaline phosphatase 174. Troponin 0.05. Rest of the metabolic profile is within normal limits. IMPRESSION: 1. Rule out gastroenteritis. 2. Anemia. 3. Advanced chronic obstructive pulmonary disease. 4. Atrial fibrillation. 5. Coronary artery disease. PLAN: I did discuss the case with the nurse at length. I have also reviewed the chart at length, and discussed the case with the patient at length. The patient presents to [facility] with a 2-day history of worsening abdominal pain and diarrhea. As above, in the emergency room, the patient appeared very weak and was thus admitted for additional evaluation and treatment. I did review the chest x-ray as above. The chest x-ray shows no acute/significant pulmonary abnormalities. As above, the patient has had recurrent pleural effusions in the past. A significant pleural effusion is not evident at the present time. On physical exam, the patient is in mild bronchospasm. There is no significant alveolar-arterial gradient. I will start the patient on DuoNeb treatments and inhaled Pulmicort. As above, the patient does have a significant history of noncompliance with her pulmonary medications at home. I did discuss this issue with her at length this morning. Lastly, the patient has been placed on nasal steroids by Dr. Cheatham - I certainly agree with this. The patient does state to feeling better this morning and is clinically improved. Additional pulmonary intervention will be based on the clinical status of the patient. I will discuss the above with Dr. Cheatham later this morning. Thank you very much for this pulmonary consultation. José Miguel Kerns MD [facility]
[2018-01-03 11:23] LABS: HEMOGLOBIN 11.6 g/dL (12.0-16.0); MEAN CELL VOLUME 89.7 fl (80.0-105.0); MEAN CORPUSCULAR HEMOGLOBIN 29.1 pg (25.0-35.0); MEAN CORPUSCULAR HGB CONC 32.5 g/dl (31.0-37.0); MEAN PLATELET VOLUME 10.4 fl (7.0-11.0); RBC 3.98 10^6/uL (3.5-6.1); RED CELL DISTRIBUTION WIDTH 14.7 % (11.5-14.5); WHITE BLOOD COUNT 17.3 10^3/ul (4.5-11.0)
--- NOTE | 2018-01-03 11:33 | RAD ---
Date of service: 01/02/2018 HISTORY: WT LOSS COMPARISON: 07/27/2017 FINDINGS: LUNGS: Examination is somewhat limited due to oblique positioning. PLEURA: Blunting of both costophrenic angles, right greater than left. Possible small pleural effusions versus chronic pleural thickening CARDIOVASCULAR: Normal heart size. Cardiac valvular prosthesis. Sternotomy wires. OSSEOUS STRUCTURES: No significant abnormalities. VISUALIZED UPPER ABDOMEN: Normal. OTHER FINDINGS: None. IMPRESSION: No acute infiltrate. Possible small pleural effusions versus chronic pleural thickening.
[2018-01-03 11:48] LABS: TROPONIN I 0.08 ng/mL
--- NOTE | 2018-01-03 11:48 | CARD ---
APPROVED REPORT Date of service: 01/03/2018 EKG Measurement Heart [id number] <Conclusion> Atrial fibrillation Abnormal ECG
[2018-01-03] MEDS: Albuterol-Ipratrop 3 mg / 0.5 (3 ml) UD IH SCH ×2 (14:11→20:07)
--- NOTE | 2018-01-03 14:14 | CP.PCM.CON ---
<Taiwo Gaming - Last Filed: 01/03/18 17:06> History of Present Illness - History of Present Illness History of Present Illness: Gastroenterology Consult note For Dr. Umer Gaming PGY2 Reason for consult: Abdominal pain and diarrhea Patient is a 87 F with a history significant for COPD, s/p cholecystecomy, Mckeon's esophagus, CHF, CAD, atrial fibrillation, and medication non- compliance who presented to the emergency department with complaints of abdominal pain with associated non-bloody diarrhea for 2 days. When evaluated patient states she never experiecned an actual abdominal pain, but more so soreness and discomfort. She states however that this symptom has resolved as well as her diarrhea. Patient currently complains of muscle cramps. Denies abdominal pain, nausea, vomiting, diarrhea, fevers, chills, shortness of breath , headache, cough. Lab Values: AST 40, ALT 16, Alkaline phosphatase 174, Lipase 119, H&H 11.6/35.7 up from 11.1/35.3 on admission Imaging: CT abdomen/pelvis-No acute intra-abdominal findings Review of Systems - Constitutional Constitutional: absent: Anorexia, Chills - EENT Eyes: absent: Change in Vision Ears: absent: Dizziness - Cardiovascular Cardiovascular: absent: Chest Pain, Dyspnea - Respiratory Respiratory: absent: Cough, Dyspnea - Gastrointestinal Gastrointestinal: absent: Abdominal Pain, Diarrhea, Dysphagia, Hematemesis, Hematochezia, Nausea, Vomiting - Genitourinary Genitourinary: absent: Dysuria - Musculoskeletal Musculoskeletal: Muscle Cramps, Muscle Weakness. absent: Back Pain - Integumentary Integumentary: absent: Acne - Neurological Neurological: absent: Dizziness, Numbness - Psychiatric Psychiatric: absent: Anxiety - Endocrine Endocrine: absent: Polyphagia - Hematologic/Lymphatic Hematologic: absent: Easy Bleeding Past Patient History - Infectious Disease Hx of Infectious Diseases: None - Tetanus Immunizations Tetanus Immunization: Unknown - Past Social History Smoking Status: Never Smoked - CARDIAC Hx Cardiac Disorders: Yes Hx Hypertension: Yes - PULMONARY Hx Chronic Obstructive Pulmonary Disease (COPD): Yes - NEUROLOGICAL Hx Neurological Disorder: No - HEENT Hx HEENT Problems: Yes (post nasal drip) Hx Cataracts: Yes (Bilateral surgery) - RENAL Hx Chronic Kidney Disease: No - ENDOCRINE/METABOLIC Hx Endocrine Disorders: No - HEMATOLOGICAL/ONCOLOGICAL Hx Blood Disorders: No - INTEGUMENTARY Hx Dermatological Problems: Yes Other/Comment: dry skin ble, light brown moles over back, chest, abd, varicose veins, smallcut to r 2nd toe from scissor when "I was cutting my toenails" pt stated, thick hard toenails to both great toes, mid chest scar from open heart sx - MUSCULOSKELETAL/RHEUMATOLOGICAL Hx Falls: No - GASTROINTESTINAL Hx Gastrointestinal Disorders: Yes (CONSTIPATION) - GENITOURINARY/GYNECOLOGICAL Hx Genitourinary Disorders: Yes (URGENCY,FREQUENCY,SOME INCONTINENCY) - PSYCHIATRIC Hx Depression: No Hx Emotional Abuse: No Hx Physical Abuse: No - SURGICAL HISTORY Hx Cholecystectomy: Yes Hx Open Heart Surgery: Yes (Valve Replacement) - ANESTHESIA Hx Anesthesia Reactions: No Hx Malignant Hyperthermia: No Meds Allergies/Adverse Reactions: Allergies Allergy/AdvReac Type Severity Reaction Status Date / Time No Known Allergies Allergy Verified 08/02/17 15:20 - Medications Medications: Current Medications Albuterol/Ipratropium (Duoneb 3 Mg/0.5 Mg (3 Ml) Ud) 3 ml IH [id number] [facility] Albuterol/Ipratropium (Duoneb 3 Mg/0.5 Mg (3 Ml) Ud) 3 ml IH Q2H PRN PRN Reason: Shortness of Breath Last Admin: 01/03/18 08:35 Dose: 3 ml Alprazolam (Xanax) 0.25 mg PO BID [facility] PRN Reason: Protocol Stop: 01/10/18 10:01 Last Admin: 01/03/18 11:02 Dose: 0.25 mg Amlodipine Besylate (Norvasc) 5 mg PO DAILY [facility] Last Admin: 01/03/18 11:00 Dose: 5 mg Atorvastatin Calcium (Lipitor) 20 mg PO HS [facility] Last Admin: 01/03/18 01:08 Dose: 20 mg Budesonide (Pulmicort Respules) 0.5 mg IH [id number] [facility] Docusate Sodium (Colace) 100 mg PO BID [facility] Last Admin: 01/03/18 11:01 Dose: 100 mg Fluticasone Propionate (Flonase) 1 actuation NS DAILY [facility] Furosemide (Lasix) 40 mg IVP DAILY [facility] Metoprolol Succinate (Toprol Xl) 50 mg PO DAILY [facility] Last Admin: 01/03/18 11:03 Dose: 50 mg Ondansetron HCl (Zofran Inj) 4 mg IVP Q8 PRN PRN Reason: Nausea/Vomiting Last Admin: 01/03/18 10:57 Dose: 4 mg Potassium Chloride (Klor-Con 10) 10 meq PO BRK [facility] Primidone (Mysoline) 50 mg PO DAILY [facility] Last Admin: 01/03/18 11:03 Dose: 50 mg Ramipril (Altace) 5 mg PO DAILY [facility] Last Admin: 01/03/18 11:01 Dose: 5 mg Physical Exam - Head Exam Head Exam: ATRAUMATIC, NORMAL INSPECTION, NORMOCEPHALIC ( ) - Eye Exam Eye Exam: EOMI, Normal appearance - ENT Exam ENT Exam: Mucous Membranes Moist, Normal Exam - Neck Exam Neck exam: Positive for: Normal Inspection - Respiratory Exam Respiratory Exam: Clear to Auscultation Bilateral, NORMAL BREATHING PATTERN. absent: Rhonchi, Wheezes - Cardiovascular Exam Cardiovascular Exam: REGULAR RHYTHM, +S1, +S2 - GI/Abdominal Exam GI & Abdominal Exam: Normal Bowel Sounds, Soft. absent: Distended, Firm, Guarding, Hyperactive Bowel Sounds, Rigid, Tenderness - Extremities Exam Extremities exam: Positive for: normal inspection - Back Exam Back exam: NORMAL INSPECTION - Neurological Exam Neurological exam: Alert, Oriented x3 - Psychiatric Exam Psychiatric exam: Normal Affect, Normal Mood - Skin Skin Exam: Intact, Normal Color, Warm Results - Vital Signs Recent Vital Signs: Last Vital Signs Temp 97.6 F 01/03/18 01:24 Pulse 90 01/03/18 11:03 Resp 20 01/03/18 08:17 BP 106/73 01/03/18 11:03 Pulse Ox 93 L 01/03/18 08:17 - Labs Result Diagrams: 01/03/18 11:00 01/02/18 18:57 Labs: Laboratory Results - last 24 hr 01/03/18 01/03/18 11:00 11:00 WBC 17.3 H D RBC 3.98 Hgb 11.6 L Hct 35.7 L MCV 89.7 MCH 29.1 MCHC 32.5 RDW 14.7 H Plt Count 197 MPV 10.4 Troponin I 0.08 D NT-Pro-B Natriuret Pep 40520 H Assessment & Plan - Assessment and Plan (Free Text) Assessment: Patient is a 87 F with a history significant for COPD, s/p cholecystecomy, CHF, CAD, atrial fibrillation, and medication non-compliance who presented to the emergency department with complaints of abdominal pain with associated non- bloody diarrhea for 2 days. Plan: Transaminitis -Baseline elevated Alkaline phosphatase -GGT ordered to rule out bone etiology -Abdominal ultrasound to check CBD -Isoenzymes of alkaline phosphatase <Lay Owusu V - Last Filed: 01/03/18 23:03> Meds - Medications Medications: Current Medications Albuterol/Ipratropium (Duoneb 3 Mg/0.5 Mg (3 Ml) Ud) 3 ml IH [id number] [facility] Last Admin: 01/03/18 20:07 Dose: 3 ml Albuterol/Ipratropium (Duoneb 3 Mg/0.5 Mg (3 Ml) Ud) 3 ml IH Q2H PRN PRN Reason: Shortness of Breath Last Admin: 01/03/18 08:35 Dose: 3 ml Alprazolam (Xanax) 0.25 mg PO BID [facility] PRN Reason: Protocol Stop: 01/10/18 10:01 Last Admin: 01/03/18 18:26 Dose: 0.25 mg Amlodipine Besylate (Norvasc) 5 mg PO DAILY [facility] Last Admin: 01/03/18 11:00 Dose: 5 mg Atorvastatin Calcium (Lipitor) 20 mg PO HS [facility] Last Admin: 01/03/18 21:51 Dose: 20 mg Budesonide (Pulmicort Respules) 0.5 mg IH [id number] [facility] Last Admin: 01/03/18 20:07 Dose: 0.5 mg Docusate Sodium (Colace) 100 mg PO BID [facility] Last Admin: 01/03/18 11:01 Dose: 100 mg Doxycycline Hyclate (Doryx) 100 mg PO Q12 [facility] PRN Reason: Protocol Last Admin: 01/03/18 21:52 Dose: 100 mg Fluticasone Propionate (Flonase) 1 actuation NS DAILY [facility] Last Admin: 01/03/18 18:34 Dose: 1 spray Furosemide (Lasix) 40 mg IVP DAILY [facility] Last Admin: 01/03/18 18:34 Dose: Not Given Cefepime HCl (Maxipime 1gm) 1 gm in 100 mls @ 100 mls/hr IVPB Q12 [facility] PRN Reason: Protocol Last Admin: 08/07/18 21:51 Dose: 100 mls/hr Vancomycin HCl (Vancomycin 1gm) 1 gm in 250 mls @ 167 mls/hr IVPB Q12H [facility] PRN Reason: Protocol Last Admin: 01/03/18 15:50 Dose: 167 mls/hr Metoprolol Succinate (Toprol Xl) 50 mg PO DAILY [facility] Last Admin: 01/03/18 11:03 Dose: 50 mg Ondansetron HCl (Zofran Inj) 4 mg IVP Q8 PRN PRN Reason: Nausea/Vomiting Last Admin: 01/03/18 10:57 Dose: 4 mg Pantoprazole Sodium (Protonix Ec Tab) 40 mg PO 0600 [facility] Last Admin: 01/03/18 21:52 Dose: Not Given Potassium Chloride (Klor-Con 10) 10 meq PO BRK [facility] Primidone (Mysoline) 50 mg PO DAILY [facility] Last Admin: 01/03/18 11:03 Dose: 50 mg Ramipril (Altace) 5 mg PO DAILY [facility] Last Admin: 01/03/18 11:01 Dose: 5 mg Results - Vital Signs Recent Vital Signs: Last Vital Signs Temp 98.4 F 01/03/18 17:05 Pulse 92 H 01/03/18 17:05 Resp 20 01/03/18 17:05 BP 83/50 L 01/03/18 18:34 Pulse Ox 93 L 01/03/18 17:05 - Labs Result Diagrams: 01/03/18 11:00 01/02/18 18:57 Labs: Laboratory Results - last 24 hr 01/03/18 01/03/18 01/03/18 11:00 11:00 17:13 WBC 17.3 H D RBC 3.98 Hgb 11.6 L Hct 35.7 L MCV 89.7 MCH 29.1 MCHC 32.5 RDW 14.7 H Plt Count 197 MPV 10.4 GGT 221 H Troponin I 0.08 D 0.13 H* D NT-Pro-B Natriuret Pep 31974 H Attending/Attestation - Attestation I have personally seen and examined this patient.: Yes I have fully participated in the care of the patient.: Yes I have reviewed all pertinent clinical information: Yes Notes (Text): This is an addendum to GI consult report dictated by the Water Project Engineer.The patient was seen and evaluated earlier. Medical records, lab studies, imagings were reviewed. Last 24 hours events reviewed. Agreed with the above treatment plan as outlined in Water Project Engineer 's notes with the addition of the following This patient with advanced COPD,Coronary artery disease, A. fib was admitted with weakness episode of diarrhea. Patient was poorly compliant with follow- up. Patient was also found have elevated liver enzyme mainly alkaline phosphatase. Status post cholecystectomy. Last sonogram reviewed showed a CBD was normal for her age. On examination abdomen soft no tenderness We will request GGTP alk phos isoenzymes and repeat sonogram. Previous blood work also was noticed which showed some fluctuating levels of ATHE PASTPatient does have a long segment Barrettesophagus ideally he would need an endoscopy. We will discuss with the patient and if agreeable after optimization would consider EGD. We will discuss with Dr. ng 01/03/18 22:58
--- NOTE | 2018-01-03 15:44 | CARD ---
APPROVED REPORT Date of service: 01/02/2018 EKG Measurement Heart [id number] <Conclusion> Atrial fibrillation Nonspecific ST abnormality, probably digitalis effect Abnormal ECG
[2018-01-03] MEDS: Vancomycin 1gm in NS 250ml 1 GM/250 ML BAG IVPB SCH (15:50)
--- NOTE | 2018-01-03 17:32 | CT ---
Date of service: 01/03/2018 PROCEDURE: CT Chest without contrast HISTORY: SOB COMPARISON: None available. TECHNIQUE: Contiguous axial images were obtained through the chest without intravenous contrast enhancement. Sagittal and coronal reconstructions were performed. Radiation dose (DLP): 186.17 mGy-cm. This CT exam was performed using one or more of the following dose reduction techniques: Automated exposure control, adjustment of the mA and/or kV according to patient size, and/or use of iterative reconstruction technique. FINDINGS: LUNGS: Dense consolidative changes left lower lobe. Similar less pronounced changes identified right lower lobe and lingula. MEDIASTINUM: Unremarkable thoracic aorta. No aneurysm. Cardiomegaly. Main pulmonary artery unremarkable. No vascular congestion. No lymphadenopathy. PLEURA: Bilateral pleural effusions left larger than right BONES: No fracture. No destructive lesion. UPPER ABDOMEN: Grossly unremarkable. OTHER FINDINGS: None. IMPRESSION: Cardiomegaly, asymmetrical pulmonary edema. Associated bilateral pleural effusions. Dense alveolar consolidative changes primarily affecting left lower lobe which may represent superimposed pneumonia.
[2018-01-03 17:47] LABS: TROPONIN I 0.13 ng/mL
[2018-01-03] MEDS: Fluticasone Nasal 50 mcg/Spray NS SCH (18:34)
[2018-01-03] MEDS ORDERED: Pantoprazole 40 mg EC Tab PO STA (18:58)
[2018-01-03] MEDS: Budesonide 0.5 mg/2 ml Inhal Susp UD IH SCH (20:07)
--- NOTE | 2018-01-03 20:53 | CARD ---
APPROVED REPORT Date of service: 01/03/2018 EKG Measurement Heart [id number] <Conclusion> Sinus rhythm with 1st degree AV block Otherwise normal ECG
[2018-01-03] MEDS: Cefepime 1gm in NS 100ml 1 GM/100 ML BAG IVPB SCH (21:51)
[2018-01-03] MEDS: Pantoprazole 40 mg EC Tab PO SCH (21:52)
--- NOTE | 2018-01-04 01:18 | HP ---
Copied To: Wilfred Cheatham MD Attending MD: Wilfred Cheatham MD CHIEF COMPLAINT AND HISTORY OF PRESENT ILLNESS: This is an 87-year-old female who has come in to the hospital. She has been having abdominal pain. She does have a history of chronic abdominal pain. She has a history of atrial fibrillation, COPD and dyslipidemia. She has been taking her Xanax. She states that she started developing diarrhea over the last few days. She has been shaking. She has not been able to eat well. Her appetite has gone down. The patient was to be seen by Dr. Colunga this Tuesday but she has decided to come into the hospital for further evaluation. Patient had no fevers, no chills, no dysuria, no nocturia, no weakness in the arms and the legs. She does complain of abdominal discomfort that she has had for "on and off for long time." ALLERGIES: NO KNOWN DRUG ALLERGIES. PAST MEDICAL HISTORY: Hypertension, coronary artery disease, COPD, atrial fibrillation, status post mitral valve replacement, moderate tricuspid regurgitation. SOCIAL HISTORY: She does not smoke, drink or use drugs. FAMILY HISTORY: Noncontributory. MEDICATIONS: Has been reviewed on the [facility]. LABORATORY DATA: White count of 15.5, hemoglobin 11.1, platelet count is 217, repeat white count is 17.3. Chemistry done shows a creatinine of 1.1, LDH is 582. Urine shows blood negative, nitrites are negative. DIAGNOSTIC DATA: CT of the abdomen done shows no acute intraabdominal findings. Chest x-ray done shows no acute infiltrates. ASSESSMENT: 1. Sepsis. 2. Atrial fibrillation. 3. Coronary artery disease, status post coronary artery bypass graft. 4. Dyslipidemia. 5. Hypertension. 6. Chronic obstructive pulmonary disease. 7. Status post mitral valve replacement. 8. Moderate tricuspid regurgitation. 9. Hypoxia. PLAN: The patient is going to be admitted to the hospital. She is hypoxic. She had an EKG done that showed atrial fibrillation at a rate of 93. She is going to need Cardiology and Pulmonary evaluation. The patient is going to be on ramipril for hypertension. She is going to be on Colace. She is on Lasix. She is going to be on Lipitor for dyslipidemia. The patient is on Xopenex. She is going to need Infectious Disease evaluation. I will place her on antibiotics and she is going to need urine cultures. I will also get blood cultures. Patient had troponin, which was 0.08. Wilfred Cheatham MD
[2018-01-04] MEDS: Albuterol-Ipratrop 3 mg / 0.5 (3 ml) UD IH SCH ×4 (02:33→19:18)
[2018-01-04] MEDS: Vancomycin 1gm in NS 250ml 1 GM/250 ML BAG IVPB SCH ×2 (03:33→15:28)
[2018-01-04] MEDS: Pantoprazole 40 mg EC Tab PO SCH (05:15)
[2018-01-04 06:26] LABS: HEMOGLOBIN 10.1 g/dL (12.0-16.0); MEAN CELL VOLUME 88.5 fl (80.0-105.0); MEAN CORPUSCULAR HGB CONC 32.8 g/dl (31.0-37.0); MEAN PLATELET VOLUME 11.2 fl (7.0-11.0); RBC 3.48 10^6/uL (3.5-6.1); RED CELL DISTRIBUTION WIDTH 15.1 % (11.5-14.5); WHITE BLOOD COUNT 13.7 10^3/ul (4.5-11.0)
[2018-01-04 07:00] LABS: ALB/GLOB RATIO 1.2 (1.1-1.8); ALBUMIN 3.4 g/dL (3.0-4.8); CALCIUM 8.6 mg/dL (8.4-10.5)
[2018-01-04] MEDS ORDERED: Potassium Chloride 10 mEq ER Tab PO SCH (08:00)
--- NOTE | 2018-01-04 08:00 | PN ---
Copied To: José Miguel Kerns MD Attending MD: José Miguel Kerns MD DATE: 01/04/2018 PULMONARY NOTE SUBJECTIVE: The patient appears comfortable this morning. She is not short of breath at rest. PHYSICAL EXAMINATION: VITAL SIGNS: Temperature is 98.4, pulse 98, respirations 18, last blood pressure recorded is 83/50. Oxygen saturation on nasal cannula is 93%. HEENT: Normocephalic, atraumatic. No JVD. CARDIOVASCULAR: Systolic ejection murmur at the lower left sternal border. No S3 gallop. LUNGS: Decreased breath sounds at the bases. Less rhonchi. No wheezing. EXTREMITIES: Mild edema. No cyanosis. No clubbing. Calves are nontender to palpation. GI: Abdomen is soft, nontender and nondistended. Bowel sounds are positive. SKIN: No acute rash. NEUROLOGIC: Limited at the present time. PERTINENT LABORATORY DATA: CAT scan of the chest was done yesterday and reviewed. There is a left lower lobe consolidation with air bronchograms - consistent with pneumonia. There are also bilateral pleural effusions. The peak troponin over the past 24 hours-- 0.13. IMPRESSION: 1. Rule out gastroenteritis. 2. Anemia. 3. Advanced chronic obstructive pulmonary disease. 4. Left lower lobe pneumonia. 5. Uca-PS-tasrkqnve myocardial infarction. PLAN: The patient appears comfortable this morning. She is not short of breath at rest. She does state to feeling better overall. On physical exam, there is less bronchospasm noted. I will continue with the current nebulizer treatments and inhaled steroids for now. CAT scan of the chest is noted above. The patient has been pancultured and started on antibiotic therapy. Input by Infectious Disease (Dr. Negron) is noted. I have also reviewed the laboratory data. A significant rise in the troponin is noted. The patient does have a history of coronary artery disease. Clinical status of the patient does appear improved - compared to her initial presentation. However, it does appear that the future status/prognosis for this elderly patient does remain very guarded at best/poor. I will discuss the above with Dr. Cheatham. José Miguel Kerns MD [facility]
[2018-01-04] MEDS: Budesonide 0.5 mg/2 ml Inhal Susp UD IH SCH ×2 (08:33→19:18)
--- NOTE | 2018-01-04 09:40 | US ---
Date of service: 01/04/2018 HISTORY: transaminitis COMPARISON: 09/18/2014. Abdominal ultrasound. 01/02/2018 CT abdomen and pelvis. TECHNIQUE: Sonographic evaluation of the abdomen. FINDINGS: LIVER: Measures 18.8 cm. Patent portal vein. Portal venous flow: Hepatopetal. Unremarkable echogenicity of the liver parenchyma. No mass. No intrahepatic bile duct dilatation. GALLBLADDER: Status post cholecystectomy. No abnormality is seen in the gallbladder fossa. COMMON BILE DUCT: Measures 4.3 mm. No stones. No dilatation. PANCREAS: Unremarkable as visualized. No mass. No ductal dilatation. RIGHT KIDNEY: Measures 4.3 x 9.4cm. Normal echogenicity. No calculus, mass, or hydronephrosis. LEFT KIDNEY: Atrophic left kidney Measures 3.4 x 6.2cm. Normal echogenicity. No calculus, mass, or hydronephrosis.Incidental finding(s): Midpole cyst 1.8 x 2.5 cm. SPLEEN: Normal in size and contour. No mass. AORTA: No aneurysmal dilatation. IVC: Unremarkable. OTHER FINDINGS: None. IMPRESSION: No acute findings related to/accounting for the clinical presentation. Additional benign and/or incidental findings described above.No significant interval change compared to the prior examination(s). She
--- NOTE | 2018-01-04 09:44 | CP.PCM.PN ---
<Taiwo Gaming - Last Filed: 01/04/18 17:38> Subjective - Date & Time of Evaluation Date of Evaluation: 01/04/18 Time of Evaluation: 06:30 - Subjective Subjective: Gastroenterology Progress Note for Dr. Umer Gaming PGY2 Patient seen and examined at bedside resting comfortably in no acute distress. Patient states that she had one bowel movement overnight, and no longer abdominal pain since she was admitted. Denies nausea, chest pain, shortness of breath, fevers, chills, headache cough. Objective - Vital Signs/Intake and Output Vital Signs (last 24 hours): Temp Pulse Resp BP Pulse Ox 97.9 F 80 19 91/64 L 93 L 01/04/18 07:54 01/04/18 07:54 01/04/18 07:54 01/04/18 07:54 01/04/18 07:54 Intake and Output: 01/04/18 01/04/18 06:59 18:59 Intake Total 350 Balance 350 - Medications Medications: Current Medications Albuterol/Ipratropium (Duoneb 3 Mg/0.5 Mg (3 Ml) Ud) 3 ml IH [id number] [facility] Last Admin: 01/04/18 08:33 Dose: 3 ml Albuterol/Ipratropium (Duoneb 3 Mg/0.5 Mg (3 Ml) Ud) 3 ml IH Q2H PRN PRN Reason: Shortness of Breath Last Admin: 01/03/18 08:35 Dose: 3 ml Alprazolam (Xanax) 0.25 mg PO BID [facility] PRN Reason: Protocol Stop: 01/10/18 10:01 Last Admin: 01/03/18 18:26 Dose: 0.25 mg Amlodipine Besylate (Norvasc) 5 mg PO DAILY [facility] Last Admin: 01/03/18 11:00 Dose: 5 mg Aspirin (Ecotrin) 81 mg PO DAILY [facility] Atorvastatin Calcium (Lipitor) 20 mg PO HS [facility] Last Admin: 01/03/18 21:51 Dose: 20 mg Budesonide (Pulmicort Respules) 0.5 mg IH [id number] [facility] Last Admin: 01/04/18 08:33 Dose: 0.5 mg Docusate Sodium (Colace) 100 mg PO BID [facility] Last Admin: 08/07/18 11:01 Dose: 100 mg Doxycycline Hyclate (Doryx) 100 mg PO Q12 [facility] PRN Reason: Protocol Last Admin: 01/03/18 21:52 Dose: 100 mg Fluticasone Propionate (Flonase) 1 actuation NS DAILY [facility] Last Admin: 01/03/18 18:34 Dose: 1 spray Furosemide (Lasix) 40 mg IVP DAILY [facility] Last Admin: 01/03/18 18:34 Dose: Not Given Cefepime HCl (Maxipime 1gm) 1 gm in 100 mls @ 100 mls/hr IVPB Q12 [facility] PRN Reason: Protocol Last Admin: 01/03/18 21:51 Dose: 100 mls/hr Vancomycin HCl (Vancomycin 1gm) 1 gm in 250 mls @ 167 mls/hr IVPB Q12H [facility] PRN Reason: Protocol Last Admin: 01/04/18 03:33 Dose: 167 mls/hr Metoprolol Succinate (Toprol Xl) 50 mg PO DAILY [facility] Last Admin: 01/03/18 11:03 Dose: 50 mg Ondansetron HCl (Zofran Inj) 4 mg IVP Q8 PRN PRN Reason: Nausea/Vomiting Last Admin: 01/03/18 10:57 Dose: 4 mg Pantoprazole Sodium (Protonix Ec Tab) 40 mg PO 0600 [facility] Last Admin: 01/04/18 05:15 Dose: 40 mg Potassium Chloride (Klor-Con 10) 10 meq PO BRK [facility] Last Admin: 01/04/18 08:34 Dose: 10 meq Primidone (Mysoline) 50 mg PO DAILY [facility] Last Admin: 01/03/18 11:03 Dose: 50 mg Ramipril (Altace) 5 mg PO DAILY [facility] Last Admin: 01/03/18 11:01 Dose: 5 mg - Labs Labs: 01/04/18 06:05 01/04/18 06:05 PT 10.9 SECONDS (9.4-12.5) 01/02/18 18:57 INR 0.96 01/02/18 18:57 - Constitutional Appears: Non-toxic, No Acute Distress - Head Exam Head Exam: ATRAUMATIC, NORMAL INSPECTION, NORMOCEPHALIC - Eye Exam Eye Exam: EOMI, Normal appearance - ENT Exam ENT Exam: Mucous Membranes Moist - Respiratory Exam Respiratory Exam: Decreased Breath Sounds, NORMAL BREATHING PATTERN - Cardiovascular Exam Cardiovascular Exam: +S1, +S2, Murmur (systolic) - GI/Abdominal Exam GI & Abdominal Exam: Soft, Normal Bowel Sounds. absent: Distended, Firm, Guarding, Rigid, Tenderness, Organomegaly - Extremities Exam Extremities Exam: Full ROM, Normal Inspection - Back Exam Back Exam: NORMAL INSPECTION - Neurological Exam Neurological Exam: Alert, Awake, Oriented x3 - Psychiatric Exam Psychiatric exam: Normal Affect, Normal Mood - Skin Skin Exam: Intact, Normal Color, Warm Assessment and Plan - Assessment and Plan (Free Text) Assessment: Patient is a 87 F with a history significant for COPD, long segment de la o's esophagus, s/p cholecystecomy, CHF, CAD, atrial fibrillation, and medication non -compliance who presented to the emergency department with complaints of abdominal pain with associated non-bloody diarrhea for 2 days. Plan: Transaminitis -Baseline elevated Alkaline phosphatase -GGT elevated at 221 -Abdominal ultrasound treveals normal CBD with no dilation Hx of De La O's esophagus -Will schedule for EGD Tuesday <Lay Owusu V - Last Filed: 01/04/18 23:52> Objective - Vital Signs/Intake and Output Vital Signs (last 24 hours): Temp Pulse Resp BP Pulse Ox 98.7 F 101 H 20 89/59 L 96 01/04/18 19:00 01/04/18 19:00 01/04/18 19:00 01/04/18 19:00 01/04/18 19:00 Intake and Output: 01/04/18 01/05/18 18:59 06:59 Intake Total 480 Balance 480 - Medications Medications: Current Medications Albuterol/Ipratropium (Duoneb 3 Mg/0.5 Mg (3 Ml) Ud) 3 ml IH [id number] [facility] Last Admin: 01/04/18 19:18 Dose: 3 ml Albuterol/Ipratropium (Duoneb 3 Mg/0.5 Mg (3 Ml) Ud) 3 ml IH Q2H PRN PRN Reason: Shortness of Breath Last Admin: 01/03/18 08:35 Dose: 3 ml Alprazolam (Xanax) 0.25 mg PO BID [facility] PRN Reason: Protocol Stop: 01/10/18 10:01 Last Admin: 01/04/18 18:04 Dose: 0.25 mg Amlodipine Besylate (Norvasc) 5 mg PO DAILY [facility] Last Admin: 01/04/18 10:10 Dose: Not Given Aspirin (Ecotrin) 81 mg PO DAILY [facility] Last Admin: 01/04/18 10:19 Dose: 81 mg Atorvastatin Calcium (Lipitor) 20 mg PO HS [facility] Last Admin: 01/04/18 21:02 Dose: 20 mg Budesonide (Pulmicort Respules) 0.5 mg IH [id number] [facility] Last Admin: 01/04/18 19:18 Dose: 0.5 mg Docusate Sodium (Colace) 100 mg PO BID [facility] Last Admin: 01/04/18 18:03 Dose: 100 mg Doxycycline Hyclate (Doryx) 100 mg PO Q12 [facility] PRN Reason: Protocol Last Admin: 01/04/18 21:02 Dose: 100 mg Enoxaparin Sodium (Lovenox) 30 mg SC Q12H [facility] PRN Reason: Protocol Last Admin: 01/04/18 21:02 Dose: 30 mg Fluticasone Propionate (Flonase) 1 actuation NS DAILY [facility] Last Admin: 01/04/18 10:06 Dose: 1 spray Furosemide (Lasix) 40 mg IVP DAILY [facility] Last Admin: 01/04/18 15:18 Dose: Not Given Cefepime HCl (Maxipime 1gm) 1 gm in 100 mls @ 100 mls/hr IVPB Q12 [facility] PRN Reason: Protocol Last Admin: 01/04/18 21:01 Dose: 100 mls/hr Vancomycin HCl (Vancomycin 1gm) 1 gm in 250 mls @ 167 mls/hr IVPB Q12H [facility] PRN Reason: Protocol Last Admin: 01/04/18 15:28 Dose: 167 mls/hr Metoprolol Succinate (Toprol Xl) 50 mg PO DAILY [facility] Last Admin: 01/04/18 10:57 Dose: Not Given Ondansetron HCl (Zofran Inj) 4 mg IVP Q8 PRN PRN Reason: Nausea/Vomiting Last Admin: 01/04/18 18:02 Dose: 4 mg Pantoprazole Sodium (Protonix Ec Tab) 40 mg PO 0600 [facility] Last Admin: 01/04/18 05:15 Dose: 40 mg Potassium Chloride (Klor-Con 10) 10 meq PO BRK [facility] Last Admin: 01/04/18 08:34 Dose: 10 meq Primidone (Mysoline) 50 mg PO DAILY [facility] Last Admin: 01/04/18 10:18 Dose: 50 mg Ramipril (Altace) 5 mg PO DAILY [facility] Last Admin: 01/04/18 10:16 Dose: 5 mg - Labs Labs: 01/04/18 06:05 01/04/18 06:05 PT 10.9 SECONDS (9.4-12.5) 01/02/18 18:57 INR 0.96 01/02/18 18:57 Attending/Attestation - Attestation I have personally seen and examined this patient.: Yes I have fully participated in the care of the patient.: Yes I have reviewed all pertinent clinical information, including history, physical exam and plan: Yes Notes (Text): p 01/04/18 23:52
[2018-01-04] MEDS: Fluticasone Nasal 50 mcg/Spray NS SCH (10:06)
[2018-01-04] MEDS: Cefepime 1gm in NS 100ml 1 GM/100 ML BAG IVPB SCH ×2 (10:19→21:01)
[2018-01-04] MEDS: Metoprolol Succinate 50 mg XL Tab PO SCH (10:57)
--- NOTE | 2018-01-04 11:21 | CON ---
Copied To: Silverio Vickers MD Attending MD: Silverio Vickers MD DATE: 01/04/2018 REQUESTING PHYSICIAN Wilfred Cheatham MD. REASON FOR CONSULTATION: Chest pain, atrial fibrillation. HISTORY: This is an 87-year-old woman who was admitted through the emergency room with complaints of abdominal pain. She also reportedly has had diarrhea over the past several days. She was admitted for evaluation. While on the floor yesterday she complained of abdominal and chest discomfort and Cardiology evaluation was requested. She has had multiple admissions in the past for COPD exacerbation, congestive heart failure and atrial fibrillation. She has had bilateral pleural effusions as well. PAST MEDICAL HISTORY: She has history of coronary disease, status post prior bypass surgery and mitral valve replacement. She has had paroxysmal atrial fibrillation, however, is not currently on anticoagulant therapy. She has a history of hypertension and tricuspid regurgitation as well. She has had chronic abdominal pain as well as anxiety for which she takes Xanax on a regular basis. She has gastroesophageal reflux disease and has had diverticulitis in the past. CURRENT MEDICATIONS: Her current medications include Altace 5 mg daily, Colace, doxycycline, DuoNeb inhaler, Flonase, potassium, Lasix 40 mg daily, Lipitor 20 mg daily, Maxipime, Mysoline, Norvasc 5 mg daily, Protonix, Pulmicort inhaler, Toprol XL 50 mg daily, vancomycin, Xanax and Zofran p.r.n. SOCIAL HISTORY: She is a former smoker. She denies alcohol use. FAMILY HISTORY: Both parents from unknown cause. REVIEW OF SYSTEMS: A 10-point review of systems is otherwise fairly unremarkable. OBJECTIVE: GENERAL: She is a very thin, very elderly woman. VITAL SIGNS: Her blood pressure is 90/64 with a pulse of 80, in atrial fibrillation, respirations 16. She is afebrile. HEENT: Temporal wasting is noted. NECK: Supple. No JVD noted. CHEST: Some bilateral scattered rhonchi are heard. Diminished breath sounds noted at the bases. HEART: Reveals the PMI displaced laterally. Rhythm is irregularly irregular. A systolic murmur is noted at the lower left sternal border. ABDOMEN: Soft with mild diffuse tenderness. Bowel sounds are present. EXTREMITIES: No edema. Muscle atrophy noted. SKIN: Warm and dry. PSYCHIATRIC: Somewhat flat affect, but otherwise unremarkable. NEUROLOGIC: No gross motor or sensory deficits noted. DIAGNOSTIC DATA: White count 13.7, hemoglobin and hematocrit of 10.1 and 30.8 with platelet count of 174,000. PT/INR 10.9 and 0.96. Arterial blood gas showed pH 7.36, pCO2 of 41, pO2 of 81. Potassium 4.9, sodium 131, BUN and creatinine are 35 and 1.5. Initial troponin 0.05, repeat 0.08. Repeat is 0.13. BNP is 21,200. Her electrocardiogram reveals atrial fibrillation with nonspecific ST-T abnormalities and controlled ventricular rate. Chest x-ray reveals post sternotomy changes with flattened diaphragms consistent with COPD, increased vascular markings noted bilaterally. The cardiac silhouette appear shifted to the right. Small pleural effusions appear present. Prosthetic mitral valve structure noted. IMPRESSION: 1. Recent chest pain and borderline troponin, possibly due to cardiac ischemia, however, at the present time, the patient denies any chest pain either today or yesterday. 2. Coronary artery disease, status post prior bypass surgery. 3. Status post mitral valve replacement. 4. Atrial fibrillation, not currently on anticoagulation, exact reason unclear. 5. Pulmonary vascular congestion. 6. Abdominal pain, appears chronic. 7. Benzodiazepine dependence. 8. Rest of problems as noted. RECOMMENDATIONS: Her current cardiac medications will continue for now. Repeat electrocardiogram and troponin will be checked in the morning. In general, conservative management appears most reasonable given her general condition and advanced age. Old records will be reviewed. Further plans are made based upon her clinical course and results of the above findings. Thank you for this consultation. We are happy to follow along her hospital course and make further recommendations as appropriate. Silverio Vickers MD
--- NOTE | 2018-01-04 11:52 | PN ---
Copied To: Wilfred Cheatham MD Attending MD: Wilfred Cheatham MD DATE: 01/04/2018 SUBJECTIVE: The patient has no complaints of any chest pain. No shortness of breath. No headaches or dizziness. The patient said she does have a cough with congestion and is bringing up sputum. PHYSICAL EXAMINATION: VITAL SIGNS: Temperature is 98.4, pulse of 92, blood pressure is 83/50, respirations 20. GENERAL: The patient is lying in bed, flat, comfortable. HEENT: No oral lesion. Anicteric sclerae. Moist mucosa. NECK: No JVD, adenopathy, or thyromegaly. CARDIOVASCULAR: S1 and S2, regular. No murmurs, rubs, or gallops. LUNGS: Clear to auscultation bilaterally. No wheeze, rales, or rhonchi. ABDOMEN: Bowel sounds are positive, soft, nontender and nondistended. EXTREMITIES: No cyanosis, clubbing or edema. LABORATORY DATA: White count of 17.3, hemoglobin is 11.[address] of the chest shows dense alveolar consolidate affecting the left lower lobe representing superimposed pneumonia. ASSESSMENT: 1. Community-acquired pneumonia. 2. Hypoxia. 3. Tricuspid regurgitation. 4. Atrial fibrillation, not on Coumadin. 5. Coronary artery disease, status post coronary artery bypass graft. 6. Dyslipidemia. 7. Hypotension. 8. Chronic obstructive pulmonary disease. 9. Status post mitral valve replacement. 10. Mitral regurgitation. PLAN: The patient is having pneumonia, has been treated with IV antibiotics. ID will be following the patient. The patient had blood cultures, urine cultures. C. diff was ordered, that is pending. She is going to be on ramipril for hypertension, she is on doxycycline for antibiotics as well as cefepime. The patient is receiving Pulmicort for her COPD. She is on Zofran as needed. She is on Xanax for her anxiety. She is on Lipitor for dyslipidemia. She has procalcitonin level that has been ordered as well as Legionella of the urine. The patient has been made n.p.o. An abdominal ultrasound has been ordered. I did review the note from GI from Dr. Owusu. The patient will need an endoscopy. Repeat blood work has been ordered. The patient was seen by Physical Therapy and it was determined that she goes to Transitional Care Unit. Wilfred Cheatham MD
[2018-01-04] MEDS ORDERED: Enoxaparin 30 mg Syringe SC SCH (12:45)
--- NOTE | 2018-01-04 17:39 | CP.PCM.CON ---
History of Present Illness - History of Present Illness History of Present Illness: 87 year old female with PMH of COPD, Mckeon's esophagus, chronic CHF, CAD, atrial fibrillation, COPD [place] [facility] complaining of pain in the abdomen and generalized weakness and some loose bowel movement. She denies fever or chills, no nausea or vomiting, no chest pain, no SOB, no sore throat, dry cough, no dysphagia, no pruritus or rash, no headache or dizziness, no dysuria. CT A/P is showing lobe infiltrates. Infectious Diseases consult is requested to further evaluate and manage. Review of Systems - Review of Systems All systems: reviewed and no additional remarkable complaints except (as per HPI ) Past Patient History - Infectious Disease Hx of Infectious Diseases: None - Tetanus Immunizations Tetanus Immunization: Unknown - Past Social History Smoking Status: Never Smoked - CARDIAC Hx Cardiac Disorders: Yes Hx Hypertension: Yes - PULMONARY Hx Chronic Obstructive Pulmonary Disease (COPD): Yes - NEUROLOGICAL Hx Neurological Disorder: No - HEENT Hx HEENT Problems: Yes (post nasal drip) Hx Cataracts: Yes (Bilateral surgery) - RENAL Hx Chronic Kidney Disease: No - ENDOCRINE/METABOLIC Hx Endocrine Disorders: No - HEMATOLOGICAL/ONCOLOGICAL Hx Blood Disorders: No - INTEGUMENTARY Hx Dermatological Problems: Yes Other/Comment: dry skin ble, light brown moles over back, chest, abd, varicose veins, smallcut to r 2nd toe from scissor when "I was cutting my toenails" pt stated, thick hard toenails to both great toes, mid chest scar from open heart sx - MUSCULOSKELETAL/RHEUMATOLOGICAL Hx Falls: No - GASTROINTESTINAL Hx Gastrointestinal Disorders: Yes (CONSTIPATION) - GENITOURINARY/GYNECOLOGICAL Hx Genitourinary Disorders: Yes (URGENCY,FREQUENCY,SOME INCONTINENCY) - PSYCHIATRIC Hx Depression: No Hx Emotional Abuse: No Hx Physical Abuse: No - SURGICAL HISTORY Hx Cholecystectomy: Yes Hx Open Heart Surgery: Yes (Valve Replacement) - ANESTHESIA Hx Anesthesia Reactions: No Hx Malignant Hyperthermia: No Meds Allergies/Adverse Reactions: Allergies Allergy/AdvReac Type Severity Reaction Status Date / Time No Known Allergies Allergy Verified 08/02/17 15:20 - Medications Medications: Current Medications Albuterol/Ipratropium (Duoneb 3 Mg/0.5 Mg (3 Ml) Ud) 3 ml IH [id number] [facility] Last Admin: 01/03/18 20:07 Dose: 3 ml Albuterol/Ipratropium (Duoneb 3 Mg/0.5 Mg (3 Ml) Ud) 3 ml IH Q2H PRN PRN Reason: Shortness of Breath Last Admin: 01/03/18 08:35 Dose: 3 ml Alprazolam (Xanax) 0.25 mg PO BID [facility] PRN Reason: Protocol Stop: 01/10/18 10:01 Last Admin: 01/03/18 18:26 Dose: 0.25 mg Amlodipine Besylate (Norvasc) 5 mg PO DAILY [facility] Last Admin: 01/03/18 11:00 Dose: 5 mg Atorvastatin Calcium (Lipitor) 20 mg PO HS [facility] Last Admin: 01/03/18 01:08 Dose: 20 mg Budesonide (Pulmicort Respules) 0.5 mg IH [id number] [facility] Last Admin: 01/03/18 20:07 Dose: 0.5 mg Docusate Sodium (Colace) 100 mg PO BID [facility] Last Admin: 01/03/18 11:01 Dose: 100 mg Doxycycline Hyclate (Doryx) 100 mg PO Q12 [facility] PRN Reason: Protocol Fluticasone Propionate (Flonase) 1 actuation NS DAILY [facility] Last Admin: 01/03/18 18:34 Dose: 1 spray Furosemide (Lasix) 40 mg IVP DAILY [facility] Last Admin: 01/03/18 18:34 Dose: Not Given Cefepime HCl (Maxipime 1gm) 1 gm in 100 mls @ 100 mls/hr IVPB Q12 [facility] PRN Reason: Protocol Vancomycin HCl (Vancomycin 1gm) 1 gm in 250 mls @ 167 mls/hr IVPB Q12H [facility] PRN Reason: Protocol Last Admin: 01/03/18 15:50 Dose: 167 mls/hr Metoprolol Succinate (Toprol Xl) 50 mg PO DAILY [facility] Last Admin: 01/03/18 11:03 Dose: 50 mg Ondansetron HCl (Zofran Inj) 4 mg IVP Q8 PRN PRN Reason: Nausea/Vomiting Last Admin: 01/03/18 10:57 Dose: 4 mg Pantoprazole Sodium (Protonix Ec Tab) 40 mg PO 0600 [facility] Potassium Chloride (Klor-Con 10) 10 meq PO BRK [facility] Primidone (Mysoline) 50 mg PO DAILY [facility] Last Admin: 01/03/18 11:03 Dose: 50 mg Ramipril (Altace) 5 mg PO DAILY [facility] Last Admin: 01/03/18 11:01 Dose: 5 mg Physical Exam - Constitutional Appears: Chronically Ill - Head Exam Head Exam: NORMAL INSPECTION - ENT Exam ENT Exam: Mucous Membranes Moist - Neck Exam Neck exam: Negative for: Meningismus - Respiratory Exam Respiratory Exam: Decreased Breath Sounds - Cardiovascular Exam Cardiovascular Exam: +S1, +S2 - GI/Abdominal Exam GI & Abdominal Exam: Soft. absent: Tenderness Results - Vital Signs Recent Vital Signs: Last Vital Signs Temp 98.4 F 01/03/18 17:05 Pulse 92 H 01/03/18 17:05 Resp 20 01/03/18 17:05 BP 83/50 L 01/03/18 18:34 Pulse Ox 93 L 01/03/18 17:05 - Labs Result Diagrams: 01/04/18 06:05 01/04/18 06:05 Labs: Laboratory Results - last 24 hr 01/03/18 01/03/18 01/03/18 11:00 11:00 17:13 WBC 17.3 H D RBC 3.98 Hgb 11.6 L Hct 35.7 L MCV 89.7 MCH 29.1 MCHC 32.5 RDW 14.7 H Plt Count 197 MPV 10.4 GGT 221 H Troponin I 0.08 D 0.13 H* D NT-Pro-B Natriuret Pep 51240 H Assessment & Plan - Assessment and Plan (Free Text) Plan: Assessment Sepsis due to lower lobe healthcare-associated pneumonia with possible gram positive cocci and/or gram negative bacilli and/or atypical organisms COPD Mckeon's esophagus chronic CHF CAD atrial fibrillation COPD Plan Started the patient on Vancomycin. CEfepime and Doxycycline pending blood cx, PCT, urine Legionella Ag will monitor clinically
[2018-01-04] MEDS ORDERED: Pantoprazole 40 mg EC Tab PO SCH (18:24)
[2018-01-04] MEDS: Enoxaparin 30 mg Syringe SC SCH (21:02)
[2018-01-05] MEDS: Albuterol-Ipratrop 3 mg / 0.5 (3 ml) UD IH SCH ×4 (01:09→19:50)
[2018-01-05] MEDS: Vancomycin 1gm in NS 250ml 1 GM/250 ML BAG IVPB SCH (01:49)
[2018-01-05 07:05] LABS: HEMOGLOBIN 9.8 g/dL (12.0-16.0); MEAN CELL VOLUME 89.2 fl (80.0-105.0); MEAN CORPUSCULAR HEMOGLOBIN 28.5 pg (25.0-35.0); MEAN CORPUSCULAR HGB CONC 31.9 g/dl (31.0-37.0); MEAN PLATELET VOLUME 11.1 fl (7.0-11.0); RBC 3.44 10^6/uL (3.5-6.1); RED CELL DISTRIBUTION WIDTH 15.1 % (11.5-14.5); WHITE BLOOD COUNT 11.8 10^3/ul (4.5-11.0)
[2018-01-05 07:17] LABS: ALB/GLOB RATIO 1.1 (1.1-1.8); ALBUMIN 3.5 g/dL (3.0-4.8); CALCIUM 8.9 mg/dL (8.4-10.5)
[2018-01-05 07:58] LABS: TROPONIN I 0.17 ng/mL
[2018-01-05] MEDS: Budesonide 0.5 mg/2 ml Inhal Susp UD IH SCH ×2 (08:08→19:50)
--- NOTE | 2018-01-05 09:03 | CP.PCM.PN ---
Subjective - Date & Time of Evaluation Date of Evaluation: 01/05/18 Time of Evaluation: 07:00 - Subjective Subjective: Stable on 3R. She feels weak. Hungry this AM. No CP or SOB. V/S noted. PE: Lungs: rhonchi Cor.: S1S2 Abd.: soft Ext.: no edema Neuro.: alert Labs noted: K+= 5.4, Cr.= 1.1, Trop.= 0.17 ECG: RSR, No change Objective - Vital Signs/Intake and Output Vital Signs (last 24 hours): Temp Pulse Resp BP Pulse Ox 97.2 F L 106 H 22 101/62 97 01/05/18 06:00 01/05/18 08:00 01/05/18 08:00 01/05/18 08:00 01/05/18 08:00 Intake and Output: 01/05/18 01/05/18 06:59 18:59 Intake Total 870 Balance 870 - Medications Medications: Current Medications Albuterol/Ipratropium (Duoneb 3 Mg/0.5 Mg (3 Ml) Ud) 3 ml IH [id number] [facility] Last Admin: 01/05/18 08:08 Dose: 3 ml Albuterol/Ipratropium (Duoneb 3 Mg/0.5 Mg (3 Ml) Ud) 3 ml IH Q2H PRN PRN Reason: Shortness of Breath Last Admin: 01/03/18 08:35 Dose: 3 ml Alprazolam (Xanax) 0.25 mg PO BID [facility] PRN Reason: Protocol Stop: 01/10/18 10:01 Last Admin: 01/04/18 18:04 Dose: 0.25 mg Amlodipine Besylate (Norvasc) 5 mg PO DAILY [facility] Last Admin: 01/04/18 10:10 Dose: Not Given Aspirin (Ecotrin) 81 mg PO DAILY [facility] Last Admin: 01/04/18 10:19 Dose: 81 mg Atorvastatin Calcium (Lipitor) 20 mg PO HS [facility] Last Admin: 01/04/18 21:02 Dose: 20 mg Budesonide (Pulmicort Respules) 0.5 mg IH [id number] [facility] Last Admin: 01/05/18 08:08 Dose: 0.5 mg Docusate Sodium (Colace) 100 mg PO BID [facility] Last Admin: 01/04/18 18:03 Dose: 100 mg Doxycycline Hyclate (Doryx) 100 mg PO Q12 [facility] PRN Reason: Protocol Last Admin: 01/04/18 21:02 Dose: 100 mg Enoxaparin Sodium (Lovenox) 30 mg SC Q12H [facility] PRN Reason: Protocol Last Admin: 01/04/18 21:02 Dose: 30 mg Fluticasone Propionate (Flonase) 1 actuation NS DAILY [facility] Last Admin: 01/04/18 10:06 Dose: 1 spray Furosemide (Lasix) 40 mg IVP DAILY [facility] Last Admin: 01/04/18 15:18 Dose: Not Given Cefepime HCl (Maxipime 1gm) 1 gm in 100 mls @ 100 mls/hr IVPB Q12 [facility] PRN Reason: Protocol Last Admin: 01/04/18 21:01 Dose: 100 mls/hr Vancomycin HCl (Vancomycin 1gm) 1 gm in 250 mls @ 167 mls/hr IVPB Q12H [facility] PRN Reason: Protocol Last Admin: 01/05/18 01:49 Dose: 167 mls/hr Metoprolol Succinate (Toprol Xl) 50 mg PO DAILY [facility] Last Admin: 01/04/18 10:57 Dose: Not Given Ondansetron HCl (Zofran Inj) 4 mg IVP Q8 PRN PRN Reason: Nausea/Vomiting Last Admin: 01/04/18 18:02 Dose: 4 mg Pantoprazole Sodium (Protonix Ec Tab) 40 mg PO 0600 [facility] Last Admin: 01/04/18 05:15 Dose: 40 mg Primidone (Mysoline) 50 mg PO DAILY [facility] Last Admin: 01/04/18 10:18 Dose: 50 mg Ramipril (Altace) 2.5 mg PO DAILY [facility] - Labs Labs: 01/05/18 06:30 01/05/18 06:30 PT 10.9 SECONDS (9.4-12.5) 01/02/18 18:57 INR 0.96 01/02/18 18:57 Assessment and Plan - Assessment and Plan (Free Text) Assessment: Chest Pain, Abdominal Pain, Diarrhea Mild + trops, uncertain significance K+= 5.4 today CAD/CABG/MVR CHF Pleural Effusions, h/o thoracentesis PAF, not on Eliquis now COPD HBP 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 IV lasix BMP, trop in AM As per Pulm, ID, GI and medical team OOB as germain/PT
--- NOTE | 2018-01-05 09:28 | CP.PCM.PN ---
<[employer] - Last Filed: 01/05/18 13:00> Subjective - Date & Time of Evaluation Date of Evaluation: 01/05/18 Time of Evaluation: 06:45 - Subjective Subjective: Patient seen and examined at bedside in no acute distress. Patient states she is hungry and would like breakfast. Denies dysphagia, abdominal pain, nausea, vomiting, diarrhea, shortness of breath, chest pain, headache, fevers, chills, cough. Objective - Vital Signs/Intake and Output Vital Signs (last 24 hours): Temp Pulse Resp BP Pulse Ox 97.2 F L 106 H 22 101/62 97 01/05/18 06:00 01/05/18 08:00 01/05/18 08:00 01/05/18 08:00 01/05/18 08:00 Intake and Output: 01/05/18 01/05/18 06:59 18:59 Intake Total 870 Balance 870 - Medications Medications: Current Medications Albuterol/Ipratropium (Duoneb 3 Mg/0.5 Mg (3 Ml) Ud) 3 ml IH [id number] [facility] Last Admin: 01/05/18 08:08 Dose: 3 ml Albuterol/Ipratropium (Duoneb 3 Mg/0.5 Mg (3 Ml) Ud) 3 ml IH Q2H PRN PRN Reason: Shortness of Breath Last Admin: 01/03/18 08:35 Dose: 3 ml Alprazolam (Xanax) 0.25 mg PO BID [facility] PRN Reason: Protocol Stop: 01/10/18 10:01 Last Admin: 01/04/18 18:04 Dose: 0.25 mg Amlodipine Besylate (Norvasc) 5 mg PO DAILY [facility] Last Admin: 01/04/18 10:10 Dose: Not Given Aspirin (Ecotrin) 81 mg PO DAILY [facility] Last Admin: 01/04/18 10:19 Dose: 81 mg Atorvastatin Calcium (Lipitor) 20 mg PO HS [facility] Last Admin: 01/04/18 21:02 Dose: 20 mg Budesonide (Pulmicort Respules) 0.5 mg IH [id number] [facility] Last Admin: 01/05/18 08:08 Dose: 0.5 mg Docusate Sodium (Colace) 100 mg PO BID [facility] Last Admin: 01/04/18 18:03 Dose: 100 mg Doxycycline Hyclate (Doryx) 100 mg PO Q12 [facility] PRN Reason: Protocol Last Admin: 01/04/18 21:02 Dose: 100 mg Enoxaparin Sodium (Lovenox) 30 mg SC Q12H [facility] PRN Reason: Protocol Last Admin: 01/04/18 21:02 Dose: 30 mg Fluticasone Propionate (Flonase) 1 actuation NS DAILY [facility] Last Admin: 01/04/18 10:06 Dose: 1 spray Furosemide (Lasix) 40 mg IVP DAILY [facility] Last Admin: 01/04/18 15:18 Dose: Not Given Cefepime HCl (Maxipime 2gm) 2 gm in 100 mls @ 100 mls/hr IVPB Q12 [facility] PRN Reason: Protocol Stop: 01/10/18 10:01 Metoprolol Succinate (Toprol Xl) 50 mg PO DAILY [facility] Last Admin: 01/04/18 10:57 Dose: Not Given Ondansetron HCl (Zofran Inj) 4 mg IVP Q8 PRN PRN Reason: Nausea/Vomiting Last Admin: 01/04/18 18:02 Dose: 4 mg Pantoprazole Sodium (Protonix Ec Tab) 40 mg PO 0600 [facility] Last Admin: 01/04/18 05:15 Dose: 40 mg Primidone (Mysoline) 50 mg PO DAILY [facility] Last Admin: 01/04/18 10:18 Dose: 50 mg Ramipril (Altace) 2.5 mg PO DAILY [facility] - Labs Labs: 01/05/18 06:30 01/05/18 06:30 PT 10.9 SECONDS (9.4-12.5) 01/02/18 18:57 INR 0.96 01/02/18 18:57 - Constitutional Appears: Non-toxic, No Acute Distress - Head Exam Head Exam: ATRAUMATIC, NORMAL INSPECTION, NORMOCEPHALIC - Eye Exam Eye Exam: Normal appearance - ENT Exam ENT Exam: Mucous Membranes Moist - Neck Exam Neck Exam: Normal Inspection - Respiratory Exam Respiratory Exam: NORMAL BREATHING PATTERN - Cardiovascular Exam Cardiovascular Exam: REGULAR RHYTHM, +S1, +S2 - GI/Abdominal Exam GI & Abdominal Exam: Soft, Normal Bowel Sounds - Extremities Exam Extremities Exam: Normal Inspection - Back Exam Back Exam: NORMAL INSPECTION - Neurological Exam Neurological Exam: Alert, Awake, Oriented x3 - Psychiatric Exam Psychiatric exam: Normal Affect, Normal Mood - Skin Skin Exam: Intact, Normal Color, Warm Assessment and Plan - Assessment and Plan (Free Text) Assessment: Patient is a 87 F with a history significant for COPD, long segment de la o's esophagus, s/p cholecystecomy, CHF, CAD, atrial fibrillation, and medication non -compliance who presented to the emergency department with complaints of abdominal pain with associated non-bloody diarrhea for 2 days. Plan: Transaminitis -Baseline elevated Alkaline phosphatase -GGT elevated at 221 -Abdominal ultrasound reveals normal CBD with no dilation Hx of De La O's esophagus -Will schedule for EGD Tuesday; hold lovenox and aspirin before procedure -Cardiac clearance needed for procedure <Umer,Kovil V - Last Filed: 01/05/18 22:50> Objective - Vital Signs/Intake and Output Vital Signs (last 24 hours): Temp Pulse Resp BP Pulse Ox 97 F L 100 H 22 98/63 L 96 01/05/18 16:10 01/05/18 18:00 01/05/18 16:10 01/05/18 16:10 01/05/18 16:10 Intake and Output: 01/05/18 01/06/18 18:59 06:59 Intake Total 420 Output Total 600 Balance -180 - Medications Medications: Current Medications Acetaminophen (Tylenol 325mg Tab) 650 mg PO Q4H PRN PRN Reason: Pain, severe (8-10) Last Admin: 01/05/18 14:27 Dose: 650 mg Albuterol/Ipratropium (Duoneb 3 Mg/0.5 Mg (3 Ml) Ud) 3 ml IH [id number] [facility] Last Admin: 01/05/18 19:50 Dose: 3 ml Albuterol/Ipratropium (Duoneb 3 Mg/0.5 Mg (3 Ml) Ud) 3 ml IH Q2H PRN PRN Reason: Shortness of Breath Last Admin: 01/03/18 08:35 Dose: 3 ml Alprazolam (Xanax) 0.25 mg PO BID [facility] PRN Reason: Protocol Stop: 01/10/18 10:01 Last Admin: 01/05/18 17:08 Dose: 0.25 mg Amlodipine Besylate (Norvasc) 5 mg PO DAILY [facility] Last Admin: 01/05/18 10:12 Dose: Not Given Aspirin (Ecotrin) 81 mg PO DAILY [facility] Last Admin: 01/05/18 10:15 Dose: 81 mg Atorvastatin Calcium (Lipitor) 20 mg PO HS [facility] Last Admin: 01/05/18 21:06 Dose: 20 mg Budesonide (Pulmicort Respules) 0.5 mg IH [id number] [facility] Last Admin: 01/05/18 19:50 Dose: 0.5 mg Docusate Sodium (Colace) 100 mg PO BID [facility] Last Admin: 01/05/18 17:07 Dose: 100 mg Doxycycline Hyclate (Doryx) 100 mg PO Q12 [facility] PRN Reason: Protocol Last Admin: 01/05/18 21:06 Dose: 100 mg Enoxaparin Sodium (Lovenox) 30 mg SC Q12H [facility] PRN Reason: Protocol Last Admin: 01/05/18 21:09 Dose: 30 mg Fluticasone Propionate (Flonase) 1 actuation NS DAILY [facility] Last Admin: 01/05/18 10:10 Dose: 1 spray Furosemide (Lasix) 40 mg IVP DAILY [facility] Last Admin: 01/05/18 14:00 Dose: 40 mg Cefepime HCl (Maxipime 2gm) 2 gm in 100 mls @ 100 mls/hr IVPB Q12 [facility] PRN Reason: Protocol Stop: 01/10/18 10:01 Last Admin: 01/05/18 21:06 Dose: 100 mls/hr Metoprolol Succinate (Toprol Xl) 50 mg PO DAILY [facility] Last Admin: 01/05/18 10:15 Dose: Not Given Ondansetron HCl (Zofran Inj) 4 mg IVP Q8 PRN PRN Reason: Nausea/Vomiting Last Admin: 01/05/18 14:29 Dose: 4 mg Pantoprazole Sodium (Protonix Ec Tab) 40 mg PO 0600 [facility] Last Admin: 01/04/18 05:15 Dose: 40 mg Primidone (Mysoline) 50 mg PO DAILY [facility] Last Admin: 01/05/18 10:14 Dose: 50 mg Ramipril (Altace) 2.5 mg PO DAILY [facility] - Labs Labs: 01/05/18 06:30 01/05/18 06:30 PT 10.9 SECONDS (9.4-12.5) 01/02/18 18:57 INR 0.96 01/02/18 18:57 Attending/Attestation - Attestation I have personally seen and examined this patient.: Yes I have fully participated in the care of the patient.: Yes I have reviewed all pertinent clinical information, including history, physical exam and plan: Yes Notes (Text): [email or web address] 01/05/18 22:50
--- NOTE | 2018-01-05 09:30 | PN ---
Copied To: José Miguel Kerns MD Attending MD: José Miguel Kerns MD DATE: 01/05/2018 PULMONARY NOTE DICTATION SUBJECTIVE: The patient appears comfortable this morning. She is not short of breath at rest. PHYSICAL EXAMINATION: VITAL SIGNS: Temperature is 97.2, pulse 96, respirations 18/20, blood pressure 91/61. Oxygen saturation on nasal cannula is 96%. HEENT: Normocephalic, atraumatic. No JVD. CARDIOVASCULAR: Systolic ejection murmur at the lower left sternal border. No S3 gallop. LUNGS: Decreased breath sounds at the bases. Less rhonchi. No wheezing. EXTREMITIES: Mild edema. No cyanosis or clubbing. Calves are nontender to palpation. GI: Abdomen is soft, nontender and nondistended. Bowel sounds are positive. SKIN: No acute rash. NEUROLOGIC: Limited at the present time. IMPRESSION: 1. Rule out gastroenteritis. 2. Anemia. 3. Advanced chronic obstructive pulmonary disease. 4. Left lower lobe pneumonia. 5. Non-ST elevation myocardial infarction. PLAN: The patient appears comfortable this morning. She is not short of breath at rest. She does state to feeling better overall. On physical exam, there is less bronchospasm noted. In addition, the alveolar-arterial gradient is also less. I will continue the current nebulizer treatments and inhaled steroids for now. The patient remains on antibiotic therapy - as per Infectious Disease. Input by Dr. Negron is noted. There are no temperatures noted. The leukocytosis is resolving. Repeat a.m. labs are pending. Inputs by Cardiology and GI are also noted. Clinical status of the patient is certainly improved - compared to the initial presentation. However, the future status/prognosis for this elderly patient remains very guarded at best/poor. I will discuss the above with Dr. Cheatham. José Miguel Kerns MD [facility]
[2018-01-05] MEDS: Cefepime IV 2 gm in NS 2 GM/100 ML BAG IVPB SCH ×2 (10:09→21:06)
[2018-01-05] MEDS: Fluticasone Nasal 50 mcg/Spray NS SCH (10:10)
[2018-01-05] MEDS: Metoprolol Succinate 50 mg XL Tab PO SCH (10:15)
[2018-01-05] MEDS: Enoxaparin 30 mg Syringe SC SCH ×2 (10:19→21:09)
--- NOTE | 2018-01-05 10:27 | PN ---
Copied To: Wilfred Cheatham MD Attending MD: Wilfred Cheatham MD DATE: 01/05/2018 SUBJECTIVE: The patient states she is feeling better. She has no complaints of any headaches or dizziness. No nausea. PHYSICAL EXAMINATION: VITAL SIGNS: Temperature is 98.7, pulse of 101, blood pressure 89/59, respirations 20. GENERAL: The patient is lying in bed, flat, comfortable. HEENT: No oral lesion. Anicteric sclerae. Moist mucosa. NECK: No JVD, adenopathy, or thyromegaly. CARDIOVASCULAR: S1 and S2, regular. No murmurs, rubs, or gallops. LUNGS: Clear to auscultation bilaterally. No wheeze, rales, or rhonchi. ABDOMEN: Bowel sounds are positive. Soft, nontender and nondistended. EXTREMITIES: No cyanosis, clubbing or edema. LABORATORY DATA: White count of 13.7, hemoglobin 10.1, creatinine is 1.1, these are labs from yesterday. DIAGNOSTIC DATA: Abdominal ultrasound shows no acute findings in the liver. ASSESSMENT: 1. Community-acquired pneumonia. 2. Chronic abdominal pain. 3. Hypoxia, improved. 4. Tricuspid regurgitation. 5. Mitral regurgitation. 6. Atrial fibrillation, not on Coumadin. 7. Coronary artery disease, status post coronary artery bypass graft. 8. Dyslipidemia. 9. Chronic obstructive pulmonary disease. 10. Status post mitral valve replacement. PLAN: The patient is currently comfortable. She has a relatively low blood pressure, which is her normal. She has blood cultures and urine cultures that have been negative for her community-acquired pneumonia. She is on ramipril for her hypertension. I will decrease her ramipril to 2.5 mg because of her blood pressure. The patient is on albuterol as an inhaler. She is on Lasix daily. I will discontinue her potassium that has been given to her as scheduled. She is on Lovenox for DVT prophylaxis. She is on cefepime for antibiotics as well as doxycycline. The patient is on Norvasc for hypertension. She is on a heart-healthy diet. She may need to have her Coumadin started, however, I leave that to Cardiology. I did speak to Dr. Vickers about this. She may need subacute rehab. Wilfred Cheatham MD [facility] # [phone]
--- NOTE | 2018-01-05 12:21 | CP.PCM.PN ---
Subjective - Date & Time of Evaluation Date of Evaluation: 01/05/18 Time of Evaluation: 09:45 - Subjective Subjective: Still with shortness of breath at rest but a little better, no fevers, no nausea , no diarrhea. No abdominal pain. Objective - Vital Signs/Intake and Output Vital Signs (last 24 hours): Temp Pulse Resp BP Pulse Ox 97.9 F 97 H 19 98/58 L 93 L 01/04/18 07:54 01/04/18 10:10 01/04/18 07:54 01/04/18 15:18 01/04/18 07:54 Intake and Output: 01/04/18 01/04/18 06:59 18:59 Intake Total 350 Balance 350 - Medications Medications: Current Medications Albuterol/Ipratropium (Duoneb 3 Mg/0.5 Mg (3 Ml) Ud) 3 ml IH [id number] [facility] Last Admin: 01/04/18 13:41 Dose: 3 ml Albuterol/Ipratropium (Duoneb 3 Mg/0.5 Mg (3 Ml) Ud) 3 ml IH Q2H PRN PRN Reason: Shortness of Breath Last Admin: 01/03/18 08:35 Dose: 3 ml Alprazolam (Xanax) 0.25 mg PO BID [facility] PRN Reason: Protocol Stop: 01/10/18 10:01 Last Admin: 01/04/18 10:19 Dose: 0.25 mg Amlodipine Besylate (Norvasc) 5 mg PO DAILY [facility] Last Admin: 01/04/18 10:10 Dose: Not Given Aspirin (Ecotrin) 81 mg PO DAILY [facility] Last Admin: 01/04/18 10:19 Dose: 81 mg Atorvastatin Calcium (Lipitor) 20 mg PO HS [facility] Last Admin: 01/03/18 21:51 Dose: 20 mg Budesonide (Pulmicort Respules) 0.5 mg IH [id number] [facility] Last Admin: 01/04/18 08:33 Dose: 0.5 mg Docusate Sodium (Colace) 100 mg PO BID [facility] Last Admin: 01/04/18 10:17 Dose: 100 mg Doxycycline Hyclate (Doryx) 100 mg PO Q12 [facility] PRN Reason: Protocol Last Admin: 01/04/18 10:18 Dose: 100 mg Enoxaparin Sodium (Lovenox) 30 mg SC Q12H [facility] PRN Reason: Protocol Last Admin: 01/04/18 15:27 Dose: 30 mg Fluticasone Propionate (Flonase) 1 actuation NS DAILY [facility] Last Admin: 01/04/18 10:06 Dose: 1 spray Furosemide (Lasix) 40 mg IVP DAILY [facility] Last Admin: 01/04/18 15:18 Dose: Not Given Cefepime HCl (Maxipime 1gm) 1 gm in 100 mls @ 100 mls/hr IVPB Q12 [facility] PRN Reason: Protocol Last Admin: 01/04/18 10:19 Dose: 100 mls/hr Vancomycin HCl (Vancomycin 1gm) 1 gm in 250 mls @ 167 mls/hr IVPB Q12H [facility] PRN Reason: Protocol Last Admin: 01/04/18 15:28 Dose: 167 mls/hr Metoprolol Succinate (Toprol Xl) 50 mg PO DAILY [facility] Last Admin: 01/03/18 11:03 Dose: 50 mg Ondansetron HCl (Zofran Inj) 4 mg IVP Q8 PRN PRN Reason: Nausea/Vomiting Last Admin: 01/03/18 10:57 Dose: 4 mg Pantoprazole Sodium (Protonix Ec Tab) 40 mg PO 0600 [facility] Last Admin: 01/04/18 05:15 Dose: 40 mg Potassium Chloride (Klor-Con 10) 10 meq PO BRK [facility] Last Admin: 01/04/18 08:34 Dose: 10 meq Primidone (Mysoline) 50 mg PO DAILY [facility] Last Admin: 01/04/18 10:18 Dose: 50 mg Ramipril (Altace) 5 mg PO DAILY [facility] Last Admin: 01/04/18 10:16 Dose: 5 mg - Labs Labs: 01/04/18 06:05 01/04/18 06:05 PT 10.9 SECONDS (9.4-12.5) 01/02/18 18:57 INR 0.96 01/02/18 18:57 - Constitutional Appears: Chronically Ill - Head Exam Head Exam: NORMAL INSPECTION - ENT Exam ENT Exam: Mucous Membranes Moist - Neck Exam Neck Exam: absent: Lymphadenopathy, Meningismus - Respiratory Exam Respiratory Exam: Decreased Breath Sounds, Rales (at the bases) - Cardiovascular Exam Cardiovascular Exam: +S1, +S2 - GI/Abdominal Exam GI & Abdominal Exam: Soft. absent: Tenderness Assessment and Plan - Assessment and Plan (Free Text) Plan: Assessment Sepsis due to lower lobe healthcare-associated pneumonia with possible gram positive cocci and/or gram negative bacilli and/or atypical organisms COPD Mckeon's esophagus chronic CHF CAD atrial fibrillation COPD Plan blood cx are negative and patient has now mild renal insufficiency - will d/c Vancomycin but continue Cefepime and Doxycycline day 2 will continue to monitor clinically
--- NOTE | 2018-01-05 14:56 | CARD ---
APPROVED REPORT Date of service: 01/05/2018 EKG Measurement Heart [id number] <Conclusion> Sinus tachycardia with 1st degree AV block Abnormal QRS-T angle, consider primary T wave abnormality Abnormal ECG
[2018-01-06] MEDS: Albuterol-Ipratrop 3 mg / 0.5 (3 ml) UD IH SCH ×2 (01:10→07:47)
[2018-01-06] MEDS ORDERED: Metoprolol Succinate 50 mg XL Tab PO ONE (05:20)
[2018-01-06] MEDS: Pantoprazole 40 mg EC Tab PO SCH (05:29)
[2018-01-06 06:22] LABS: BASO # 0.03 K/mm3 (0.0-2.0); BASO % 0.2 % (0.0-3.0); GRAN # 10.28 (1.4-6.5); GRAN % 84.8 % (50.0-68.0); HEMOGLOBIN 10.3 g/dL (12.0-16.0); LYMPH # 0.7 (1.2-3.4); LYMPH % 5.4 % (22.0-35.0); MEAN CELL VOLUME 89.9 fl (80.0-105.0); MEAN CORPUSCULAR HEMOGLOBIN 28.8 pg (25.0-35.0); MEAN PLATELET VOLUME 11.4 fl (7.0-11.0); MONO # 1.2 (0.1-0.6); MONO % 9.6 % (1.0-6.0); RBC 3.58 10^6/uL (3.5-6.1); WHITE BLOOD COUNT 12.1 10^3/ul (4.5-11.0)
[2018-01-06 07:29] LABS: TROPONIN I 0.21 ng/mL
[2018-01-06] MEDS: Budesonide 0.5 mg/2 ml Inhal Susp UD IH SCH ×2 (07:47→20:15)
--- NOTE | 2018-01-06 07:52 | CP.PCM.PN ---
Subjective - Date & Time of Evaluation Date of Evaluation: 01/06/18 Time of Evaluation: 06:00 - Subjective Subjective: Stable on 3R. No CP or SOB. V/S noted. PE: Lungs: rhonchi Cor.: S1S2 Abd.: soft Ext.: no edema Neuro.: alert Labs noted: K+= 5.3, Cr.= 1.1, Trop.= 0.21 ECG 01/05 : RSR, No change BC X2 NG at 48 hrs. Urine C+S: NG Objective - Vital Signs/Intake and Output Vital Signs (last 24 hours): Temp Pulse Resp BP Pulse Ox 98 F 130 H 20 110/70 95 01/06/18 05:16 01/06/18 06:00 01/06/18 05:16 01/06/18 05:27 01/06/18 05:16 Intake and Output: 01/06/18 01/06/18 06:59 18:59 Intake Total 660 Output Total 1100 Balance -440 - Medications Medications: Current Medications Acetaminophen (Tylenol 325mg Tab) 650 mg PO Q4H PRN PRN Reason: Pain, severe (8-10) Last Admin: 01/06/18 05:45 Dose: 650 mg Albuterol/Ipratropium (Duoneb 3 Mg/0.5 Mg (3 Ml) Ud) 3 ml IH [id number] [facility] Last Admin: 01/06/18 01:10 Dose: 3 ml Albuterol/Ipratropium (Duoneb 3 Mg/0.5 Mg (3 Ml) Ud) 3 ml IH Q2H PRN PRN Reason: Shortness of Breath Last Admin: 01/03/18 08:35 Dose: 3 ml Alprazolam (Xanax) 0.25 mg PO BID [facility] PRN Reason: Protocol Stop: 01/10/18 10:01 Last Admin: 01/05/18 17:08 Dose: 0.25 mg Amlodipine Besylate (Norvasc) 5 mg PO DAILY [facility] Last Admin: 01/05/18 10:12 Dose: Not Given Aspirin (Ecotrin) 81 mg PO DAILY [facility] Last Admin: 01/05/18 10:15 Dose: 81 mg Atorvastatin Calcium (Lipitor) 20 mg PO HS [facility] Last Admin: 01/05/18 21:06 Dose: 20 mg Budesonide (Pulmicort Respules) 0.5 mg IH [id number] [facility] Last Admin: 01/05/18 19:50 Dose: 0.5 mg Docusate Sodium (Colace) 100 mg PO BID [facility] Last Admin: 01/05/18 17:07 Dose: 100 mg Doxycycline Hyclate (Doryx) 100 mg PO Q12 [facility] PRN Reason: Protocol Last Admin: 01/05/18 21:06 Dose: 100 mg Enoxaparin Sodium (Lovenox) 30 mg SC Q12H [facility] PRN Reason: Protocol Last Admin: 01/05/18 21:09 Dose: 30 mg Fluticasone Propionate (Flonase) 1 actuation NS DAILY [facility] Last Admin: 01/05/18 10:10 Dose: 1 spray Furosemide (Lasix) 40 mg IVP DAILY [facility] Last Admin: 01/05/18 14:00 Dose: 40 mg Cefepime HCl (Maxipime 2gm) 2 gm in 100 mls @ 100 mls/hr IVPB Q12 [facility] PRN Reason: Protocol Stop: 01/10/18 10:01 Last Admin: 01/05/18 21:06 Dose: 100 mls/hr Metoprolol Succinate (Toprol Xl) 50 mg PO DAILY [facility] Last Admin: 01/05/18 10:15 Dose: Not Given Ondansetron HCl (Zofran Inj) 4 mg IVP Q8 PRN PRN Reason: Nausea/Vomiting Last Admin: 01/05/18 14:29 Dose: 4 mg Pantoprazole Sodium (Protonix Ec Tab) 40 mg PO 0600 [facility] Last Admin: 01/06/18 05:29 Dose: 40 mg Primidone (Mysoline) 50 mg PO DAILY [facility] Last Admin: 01/05/18 10:14 Dose: 50 mg Ramipril (Altace) 2.5 mg PO DAILY [facility] - Labs Labs: 01/06/18 05:30 01/06/18 05:30 PT 10.9 SECONDS (9.4-12.5) 01/02/18 18:57 INR 0.96 01/02/18 18:57 Assessment and Plan - Assessment and Plan (Free Text) Assessment: Chest Pain, Abdominal Pain, Diarrhea Mild + trops, uncertain significance K+= 5.3 today CAD/CABG/MVR CHF Pleural Effusions, h/o thoracentesis PAF, not on Eliquis now COPD HBP 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 IV lasix ASA and Lovenox on hold for possible EGD today. AB As per Pulm, ID, GI and medical team If EGD necessary: mild increased cardiac risk. OOB as germain/PT
[2018-01-06] MEDS: Levalbuterol 1.25 MG/3 ML Inhal Soln UD IH SCH ×3 (07:58→20:15)
--- NOTE | 2018-01-06 08:06 | PN ---
Copied To: José Miguel Kerns MD Attending MD: José Miguel Kerns MD DATE: 01/06/2018 PULMONARY NOTE SUBJECTIVE: The patient appears comfortable this morning. She is not short of breath at rest. PHYSICAL EXAMINATION: VITAL SIGNS: Temperature is 98, pulse is 104, respirations 18/20, blood pressure 110/70. Oxygen saturation on nasal cannula is 95-100%. HEENT: Normocephalic, atraumatic. No JVD. CARDIOVASCULAR: Systolic ejection murmur at the lower left sternal border. No S3 gallop. LUNGS: Decreased breath sounds at the bases. Minimal/less rhonchi. No wheezing. EXTREMITIES: Mild edema. No cyanosis. No clubbing. Calves are nontender to palpation. GI: Abdomen is soft, nontender and nondistended. Bowel sounds are positive. SKIN: No acute rash. NEUROLOGIC: Limited at the present time. IMPRESSION: 1. Rule out gastroenteritis. 2. Anemia. 3. Advanced chronic obstructive pulmonary disease. 4. Left lower lobe pneumonia. 5. [id number] myocardial infarction. PLAN: The patient appears comfortable this morning. She is not short of breath at rest. She does appear somewhat anxious this morning. I did discuss the case with the night nurse at length. The night nurse stated that the patient had a good night, but did become tachycardic during her shift. On physical exam, there is less bronchospasm noted. In addition, the alveolar-arterial gradient is also less. I will change the nebulizer treatments to Xopenex (given the tachycardia) and continue with the inhaled steroids. The patient remains on antibiotic therapy - as per Infectious Disease. There are no temperatures noted. The leukocytosis is resolving. Input by Cardiology is also noted. Clinical status of the patient is certainly improved - compared to the initial presentation. However, again, the future status/prognosis for this elderly patient does appear poor. I will discuss the above with Dr. Cheatham. José Miguel Kerns MD [facility]ENTER[facility]
[2018-01-06] MEDS: Metoprolol Succinate 50 mg XL Tab PO SCH (09:33)
[2018-01-06] MEDS: Fluticasone Nasal 50 mcg/Spray NS SCH (09:34)
[2018-01-06] MEDS: Cefepime IV 2 gm in NS 2 GM/100 ML BAG IVPB SCH ×2 (10:21→22:52)
--- NOTE | 2018-01-06 10:25 | PN ---
Copied To: Wilfred Cheatham MD Attending MD: Wilfred Cheatham MD DATE: 01/06/2018 SUBJECTIVE: The patient has no complaints. Denies chest pain or shortness of breath. No headaches or dizziness. PHYSICAL EXAMINATION: VITAL SIGNS: Temperature is 98, pulse of 120, blood pressure 110/70, respirations 20. GENERAL: The patient is lying in bed, flat, comfortable. HEENT: No oral lesion. Anicteric sclerae. Moist mucosa. NECK: No JVD, adenopathy, or thyromegaly. CARDIOVASCULAR: S1 and S2, regular. No murmurs, rubs, or gallops. LUNGS: Clear to auscultation bilaterally. No wheeze, rales, or rhonchi. ABDOMEN: Bowel sounds are positive. Soft, nontender and nondistended. EXTREMITIES: No cyanosis, clubbing or edema. LABORATORY DATA: White count of 11.8, hemoglobin 9.8, platelets 130. Potassium is 5.4, creatinine is 1.1. ASSESSMENT: 1. Atrial fibrillation, uncontrolled. 2. Community-acquired pneumonia. 3. Chronic abdominal pain. 4. Hypoxia, improved. 5. Tricuspid regurgitation. 6. Mitral regurgitation. 7. Coronary artery disease, status post coronary artery bypass graft. 8. Dyslipidemia. 9. Chronic obstructive pulmonary disease. 10. Status post mitral valve replacement. PLAN: The patient continues to have atrial fibrillation. Cardiology has been following the patient. The patient is on Lovenox. We will await for the input from Cardiology regarding full anticoagulation. The patient is on aspirin daily. She is going to continue Lasix. She is on Norvasc for hypertension. The patient is on Xanax as needed, is on heart-healthy diet. The patient also need better control of her heart rate. Wilfred Cheatham MD
[2018-01-06] MEDS ORDERED: Enoxaparin 30 mg Syringe SC SCH ×2 (12:00→12:45)
--- NOTE | 2018-01-06 12:46 | CP.PCM.PN ---
Subjective - Date & Time of Evaluation Date of Evaluation: 01/06/18 Time of Evaluation: 10:10 - Subjective Subjective: Still with shortness of breath but feeling a little better, but has occasional abdominal pain. No fevers. Objective - Vital Signs/Intake and Output Vital Signs (last 24 hours): Temp Pulse Resp BP Pulse Ox 97.2 F L 96 H 22 91/61 L 97 01/05/18 06:00 01/05/18 10:15 01/05/18 08:00 01/05/18 10:17 01/05/18 08:00 Intake and Output: 01/05/18 01/05/18 06:59 18:59 Intake Total 870 Balance 870 - Medications Medications: Current Medications Albuterol/Ipratropium (Duoneb 3 Mg/0.5 Mg (3 Ml) Ud) 3 ml IH [id number] [facility] Last Admin: 01/05/18 08:08 Dose: 3 ml Albuterol/Ipratropium (Duoneb 3 Mg/0.5 Mg (3 Ml) Ud) 3 ml IH Q2H PRN PRN Reason: Shortness of Breath Last Admin: 01/03/18 08:35 Dose: 3 ml Alprazolam (Xanax) 0.25 mg PO BID [facility] PRN Reason: Protocol Stop: 01/10/18 10:01 Last Admin: 01/05/18 10:11 Dose: 0.25 mg Amlodipine Besylate (Norvasc) 5 mg PO DAILY [facility] Last Admin: 01/05/18 10:12 Dose: Not Given Aspirin (Ecotrin) 81 mg PO DAILY [facility] Last Admin: 01/05/18 10:15 Dose: 81 mg Atorvastatin Calcium (Lipitor) 20 mg PO HS [facility] Last Admin: 01/04/18 21:02 Dose: 20 mg Budesonide (Pulmicort Respules) 0.5 mg IH [id number] [facility] Last Admin: 01/05/18 08:08 Dose: 0.5 mg Docusate Sodium (Colace) 100 mg PO BID [facility] Last Admin: 01/05/18 10:16 Dose: 100 mg Doxycycline Hyclate (Doryx) 100 mg PO Q12 [facility] PRN Reason: Protocol Last Admin: 01/05/18 10:10 Dose: 100 mg Enoxaparin Sodium (Lovenox) 30 mg SC Q12H [facility] PRN Reason: Protocol Last Admin: 01/05/18 10:19 Dose: 30 mg Fluticasone Propionate (Flonase) 1 actuation NS DAILY [facility] Last Admin: 01/05/18 10:10 Dose: 1 spray Furosemide (Lasix) 40 mg IVP DAILY [facility] Last Admin: 01/05/18 10:17 Dose: Not Given Cefepime HCl (Maxipime 2gm) 2 gm in 100 mls @ 100 mls/hr IVPB Q12 [facility] PRN Reason: Protocol Stop: 01/10/18 10:01 Last Admin: 01/05/18 10:09 Dose: 100 mls/hr Metoprolol Succinate (Toprol Xl) 50 mg PO DAILY [facility] Last Admin: 01/05/18 10:15 Dose: Not Given Ondansetron HCl (Zofran Inj) 4 mg IVP Q8 PRN PRN Reason: Nausea/Vomiting Last Admin: 01/04/18 18:02 Dose: 4 mg Pantoprazole Sodium (Protonix Ec Tab) 40 mg PO 0600 [facility] Last Admin: 01/04/18 05:15 Dose: 40 mg Primidone (Mysoline) 50 mg PO DAILY [facility] Last Admin: 01/05/18 10:14 Dose: 50 mg Ramipril (Altace) 2.5 mg PO DAILY [facility] - Labs Labs: 01/05/18 06:30 01/05/18 06:30 PT 10.9 SECONDS (9.4-12.5) 01/02/18 18:57 INR 0.96 01/02/18 18:57 - Constitutional Appears: Chronically Ill - ENT Exam ENT Exam: Mucous Membranes Moist - Neck Exam Neck Exam: absent: Meningismus - Respiratory Exam Respiratory Exam: Decreased Breath Sounds - Cardiovascular Exam Cardiovascular Exam: +S1, +S2 - GI/Abdominal Exam GI & Abdominal Exam: Soft. absent: Tenderness Assessment and Plan - Assessment and Plan (Free Text) Plan: Assessment Sepsis due to lower lobe healthcare-associated pneumonia with possible gram positive cocci and/or gram negative bacilli and/or atypical organisms COPD Mckeon's esophagus chronic CHF CAD atrial fibrillation COPD Plan blood cx are negative and patient has now mild renal insufficiency - will continue Cefepime and Doxycycline day 3 to complete 4-7 days of therapy will continue to monitor clinically
--- NOTE | 2018-01-06 13:27 | CP.PCM.PN ---
Subjective - Date & Time of Evaluation Date of Evaluation: 01/06/18 Time of Evaluation: 09:00 - Subjective Subjective: Patient seen and examined at bedside with complaints of nausea, upper epigastric pain and lack of bowel movements or pass of flatus. Denies shortness of breath, palpitations, fevers, chills, headache, vomiting, diarrhea, cough. Objective - Vital Signs/Intake and Output Vital Signs (last 24 hours): Temp Pulse Resp BP Pulse Ox 98 F 98 H 18 96/67 L 97 01/06/18 08:27 01/06/18 11:50 01/06/18 11:50 01/06/18 11:50 01/06/18 11:50 Intake and Output: 01/06/18 01/06/18 06:59 18:59 Intake Total 660 Output Total 1100 Balance -440 - Medications Medications: Current Medications Acetaminophen (Tylenol 325mg Tab) 650 mg PO Q4H PRN PRN Reason: Pain, severe (8-10) Last Admin: 01/06/18 05:45 Dose: 650 mg Albuterol/Ipratropium (Duoneb 3 Mg/0.5 Mg (3 Ml) Ud) 3 ml IH Q2H PRN PRN Reason: Shortness of Breath Last Admin: 01/03/18 08:35 Dose: 3 ml Alprazolam (Xanax) 0.25 mg PO BID [facility] PRN Reason: Protocol Stop: 01/10/18 10:01 Last Admin: 01/06/18 09:34 Dose: 0.25 mg Amlodipine Besylate (Norvasc) 5 mg PO DAILY [facility] Last Admin: 01/06/18 09:34 Dose: Not Given Aspirin (Aspirin Chewable) 81 mg PO DAILY [facility] Aspirin (Ecotrin) 81 mg PO DAILY [facility] Last Admin: 01/06/18 13:19 Dose: 81 mg Atorvastatin Calcium (Lipitor) 20 mg PO HS [facility] Last Admin: 01/05/18 21:06 Dose: 20 mg Budesonide (Pulmicort Respules) 0.5 mg IH [id number] [facility] Last Admin: 01/06/18 07:47 Dose: 0.5 mg Docusate Sodium (Colace) 100 mg PO BID [facility] Last Admin: 01/06/18 09:35 Dose: Not Given Doxycycline Hyclate (Doryx) 100 mg PO Q12 [facility] PRN Reason: Protocol Last Admin: 01/06/18 09:33 Dose: 100 mg Enoxaparin Sodium (Lovenox) 30 mg SC DAILY [facility] PRN Reason: Protocol Last Admin: 01/06/18 13:08 Dose: 30 mg Fluticasone Propionate (Flonase) 1 actuation NS DAILY [facility] Last Admin: 01/06/18 09:34 Dose: Not Given Furosemide (Lasix) 40 mg IVP DAILY [facility] Last Admin: 01/06/18 09:33 Dose: 40 mg Cefepime HCl (Maxipime 2gm) 2 gm in 100 mls @ 100 mls/hr IVPB Q12 [facility] PRN Reason: Protocol Stop: 01/10/18 10:01 Last Admin: 01/06/18 10:21 Dose: 100 mls/hr Isosorbide Mononitrate (Imdur) 30 mg PO DAILY [facility] Levalbuterol HCl (Xopenex) 1.25 mg IH [id number] [facility] Last Admin: 01/06/18 07:58 Dose: Not Given Metoprolol Succinate (Toprol Xl) 50 mg PO DAILY [facility] Last Admin: 01/06/18 09:33 Dose: 50 mg Ondansetron HCl (Zofran Inj) 4 mg IVP Q8 PRN PRN Reason: Nausea/Vomiting Last Admin: 01/05/18 14:29 Dose: 4 mg Pantoprazole Sodium (Protonix Ec Tab) 40 mg PO 0600 [facility] Last Admin: 01/06/18 05:29 Dose: 40 mg Primidone (Mysoline) 50 mg PO DAILY [facility] Last Admin: 01/06/18 09:34 Dose: 50 mg Ramipril (Altace) 2.5 mg PO DAILY [facility] - Labs Labs: 01/06/18 05:30 01/06/18 05:30 PT 10.9 SECONDS (9.4-12.5) 01/02/18 18:57 INR 0.96 01/02/18 18:57 - Constitutional Appears: In Acute Distress - Head Exam Head Exam: ATRAUMATIC, NORMAL INSPECTION, NORMOCEPHALIC - Eye Exam Eye Exam: Normal appearance - ENT Exam ENT Exam: Mucous Membranes Moist - Neck Exam Neck Exam: Normal Inspection - Respiratory Exam Respiratory Exam: Clear to Ausculation Bilateral, NORMAL BREATHING PATTERN - Cardiovascular Exam Cardiovascular Exam: REGULAR RHYTHM, +S1, +S2 - GI/Abdominal Exam GI & Abdominal Exam: Soft, Normal Bowel Sounds - Extremities Exam Extremities Exam: Normal Inspection - Back Exam Back Exam: NORMAL INSPECTION - Neurological Exam Neurological Exam: Alert, Awake, Oriented x3 - Psychiatric Exam Psychiatric exam: Normal Affect, Normal Mood - Skin Skin Exam: Intact, Normal Color, Warm Assessment and Plan - Assessment and Plan (Free Text) Assessment: Patient is a 87 F with a history significant for COPD, long segment de la o's esophagus, s/p cholecystecomy, CHF, CAD, atrial fibrillation, and medication non -compliance who presented to the emergency department with complaints of abdominal pain with associated non-bloody diarrhea for 2 days. Plan: Transaminitis -Baseline elevated Alkaline phosphatase continues to downtrend -GGT elevated at 221 -Abdominal ultrasound reveals normal CBD with no dilation Hx of De La O's esophagus -Can continue lovenox and aspirin -Will perform EGD as outpatient in light of cardiac issues at this current time Upper epigastric pain most likely cardiac in origin considering elevation of troponins -Continue with lovenox and aspirin -Discussed and recommended to HEALTH SERVICES RN to contact Cardiology Dr. Friedman -Discussed and recommended HEALTH SERVICES RN to order, EKG, set of Troponins, vitals and administer nitroglycerin
--- NOTE | 2018-01-06 15:46 | CP.PCM.PN ---
Subjective - Date & Time of Evaluation Date of Evaluation: 01/06/18 Time of Evaluation: 11:50 - Subjective Subjective: Patient observed complaining of upper epigastric discomfort. Also noted to have elevated troponin, 0.21, appears pale, Dr. Friedman notified of patient's symptoms , including nausea , epigastric discomfort, and elevated troponins. Ekg repeated and forwarded to Dr Carter for review. troponin ordered pending, no further recommendations per Dr. Friedman. 1 s/l ntg given, Oxygen nasal cannula continued to be maintained. Patient on Aspirin, Lovenox, Toprol, and Imdur ordered, no further orders or recommendations given, Dr. Alejandre made aware. Objective - Vital Signs/Intake and Output Vital Signs (last 24 hours): Temp Pulse Resp BP Pulse Ox 98 F 93 H 18 96/63 L 99 01/06/18 08:27 01/06/18 15:26 01/06/18 15:26 01/06/18 15:26 01/06/18 15:26 Intake and Output: 01/06/18 01/06/18 06:59 18:59 Intake Total 660 Output Total 1100 Balance -440 - Medications Medications: Current Medications Acetaminophen (Tylenol 325mg Tab) 650 mg PO Q4H PRN PRN Reason: Pain, severe (8-10) Last Admin: 01/06/18 14:31 Dose: 650 mg Albuterol/Ipratropium (Duoneb 3 Mg/0.5 Mg (3 Ml) Ud) 3 ml IH Q2H PRN PRN Reason: Shortness of Breath Last Admin: 01/03/18 08:35 Dose: 3 ml Alprazolam (Xanax) 0.25 mg PO BID [facility] PRN Reason: Protocol Stop: 01/10/18 10:01 Last Admin: 01/06/18 09:34 Dose: 0.25 mg Amlodipine Besylate (Norvasc) 5 mg PO DAILY [facility] Last Admin: 01/06/18 09:34 Dose: Not Given Aspirin (Aspirin Chewable) 81 mg PO DAILY [facility] Atorvastatin Calcium (Lipitor) 20 mg PO HS [facility] Last Admin: 01/05/18 21:06 Dose: 20 mg Budesonide (Pulmicort Respules) 0.5 mg IH [id number] [facility] Last Admin: 08/10/18 07:47 Dose: 0.5 mg Docusate Sodium (Colace) 100 mg PO BID [facility] Last Admin: 01/06/18 09:35 Dose: Not Given Doxycycline Hyclate (Doryx) 100 mg PO Q12 [facility] PRN Reason: Protocol Last Admin: 01/06/18 09:33 Dose: 100 mg Enoxaparin Sodium (Lovenox) 30 mg SC DAILY [facility] PRN Reason: Protocol Last Admin: 01/06/18 13:08 Dose: 30 mg Fluticasone Propionate (Flonase) 1 actuation NS DAILY [facility] Last Admin: 01/06/18 09:34 Dose: Not Given Furosemide (Lasix) 40 mg IVP DAILY [facility] Last Admin: 01/06/18 09:33 Dose: 40 mg Cefepime HCl (Maxipime 2gm) 2 gm in 100 mls @ 100 mls/hr IVPB Q12 [facility] PRN Reason: Protocol Stop: 01/10/18 10:01 Last Admin: 01/06/18 10:21 Dose: 100 mls/hr Isosorbide Mononitrate (Imdur) 30 mg PO DAILY [facility] Levalbuterol HCl (Xopenex) 1.25 mg IH [id number] [facility] Last Admin: 01/06/18 13:27 Dose: 1.25 mg Metoprolol Succinate (Toprol Xl) 50 mg PO DAILY [facility] Last Admin: 01/06/18 09:33 Dose: 50 mg Ondansetron HCl (Zofran Inj) 4 mg IVP Q8 PRN PRN Reason: Nausea/Vomiting Last Admin: 01/06/18 14:31 Dose: 4 mg Pantoprazole Sodium (Protonix Ec Tab) 40 mg PO 0600 [facility] Last Admin: 01/06/18 05:29 Dose: 40 mg Primidone (Mysoline) 50 mg PO DAILY [facility] Last Admin: 01/06/18 09:34 Dose: 50 mg Ramipril (Altace) 2.5 mg PO DAILY [facility] - Labs Labs: 01/06/18 05:30 01/06/18 05:30 PT 10.9 SECONDS (9.4-12.5) 01/02/18 18:57 INR 0.96 01/02/18 18:57
--- NOTE | 2018-01-06 17:44 | CP.PCM.PN ---
Subjective - Date & Time of Evaluation Date of Evaluation: 01/06/18 Time of Evaluation: 17:34 - Subjective Subjective: House Doctor Note I was contacted by nurse to evaluate patient with worsening pain and appearance. On review of chart, patient currently being assessed and treated for atrial fibrillation, community-acquired pneumonia, abdominal pain, and elevated troponin. Troponin is elevated and could possibly be 2/2 [place] [id number] vs. NSTEMI. Cardiology is following patient and per note troponin is elevated but is of uncertain significance. Patient states that she has worsening epigastric pain and neck pain and appears pale, which is new since this afternoon according to the nurse. EKG was reviewed, which showed no acute ST-T wave changes. GI was contacted and states that she may have underlying GERD, but pain also likely due to referred cardiac pain. CT abdomen was ordered by GI. Call was placed to Dr. Friedman for further recommendations. Patient was signed out to night team and will follow patient as needed. Objective - Vital Signs/Intake and Output Vital Signs (last 24 hours): Temp Pulse Resp BP Pulse Ox 98.2 F 72 18 100/60 98 01/06/18 17:24 01/06/18 17:24 01/06/18 17:24 01/06/18 17:24 01/06/18 17:24 Intake and Output: 01/06/18 01/06/18 06:59 18:59 Intake Total 660 Output Total 1100 Balance -440 - Medications Medications: Current Medications Acetaminophen (Tylenol 325mg Tab) 650 mg PO Q4H PRN PRN Reason: Pain, severe (8-10) Last Admin: 01/06/18 14:31 Dose: 650 mg Albuterol/Ipratropium (Duoneb 3 Mg/0.5 Mg (3 Ml) Ud) 3 ml IH Q2H PRN PRN Reason: Shortness of Breath Last Admin: 01/03/18 08:35 Dose: 3 ml Alprazolam (Xanax) 0.25 mg PO BID [facility] PRN Reason: Protocol Stop: 01/10/18 10:01 Last Admin: 01/06/18 09:34 Dose: 0.25 mg Amlodipine Besylate (Norvasc) 5 mg PO DAILY [facility] Last Admin: 01/06/18 09:34 Dose: Not Given Aspirin (Aspirin Chewable) 81 mg PO DAILY [facility] Atorvastatin Calcium (Lipitor) 20 mg PO HS [facility] Last Admin: 01/05/18 21:06 Dose: 20 mg Budesonide (Pulmicort Respules) 0.5 mg IH [id number] [facility] Last Admin: 01/06/18 07:47 Dose: 0.5 mg Docusate Sodium (Colace) 100 mg PO BID [facility] Last Admin: 01/06/18 09:35 Dose: Not Given Doxycycline Hyclate (Doryx) 100 mg PO Q12 [facility] PRN Reason: Protocol Last Admin: 01/06/18 09:33 Dose: 100 mg Enoxaparin Sodium (Lovenox) 30 mg SC DAILY [facility] PRN Reason: Protocol Last Admin: 01/06/18 13:08 Dose: 30 mg Fluticasone Propionate (Flonase) 1 actuation NS DAILY [facility] Last Admin: 01/06/18 09:34 Dose: Not Given Furosemide (Lasix) 40 mg IVP DAILY [facility] Last Admin: 01/06/18 09:33 Dose: 40 mg Cefepime HCl (Maxipime 2gm) 2 gm in 100 mls @ 100 mls/hr IVPB Q12 [facility] PRN Reason: Protocol Stop: 01/10/18 10:01 Last Admin: 01/06/18 10:21 Dose: 100 mls/hr Isosorbide Mononitrate (Imdur) 30 mg PO DAILY [facility] Levalbuterol HCl (Xopenex) 1.25 mg IH [id number] [facility] Last Admin: 01/06/18 13:27 Dose: 1.25 mg Metoprolol Succinate (Toprol Xl) 50 mg PO DAILY [facility] Last Admin: 01/06/18 09:33 Dose: 50 mg Ondansetron HCl (Zofran Inj) 4 mg IVP Q8 PRN PRN Reason: Nausea/Vomiting Last Admin: 01/06/18 14:31 Dose: 4 mg Pantoprazole Sodium (Protonix Ec Tab) 40 mg PO 0600 [facility] Last Admin: 01/06/18 05:29 Dose: 40 mg Primidone (Mysoline) 50 mg PO DAILY [facility] Last Admin: 01/06/18 09:34 Dose: 50 mg Ramipril (Altace) 2.5 mg PO DAILY [facility] - Labs Labs: 01/06/18 05:30 01/06/18 05:30 PT 10.9 SECONDS (9.4-12.5) 01/02/18 18:57 INR 0.96 01/02/18 18:57 - Head Exam Head Exam: NORMAL INSPECTION - Eye Exam Eye Exam: Normal appearance Pupil Exam: NORMAL ACCOMODATION Additional comments: conjunctival pallor - ENT Exam ENT Exam: Mucous Membranes Dry - Neck Exam Neck Exam: Tenderness (paraspinal) - Respiratory Exam Respiratory Exam: Clear to Ausculation Bilateral. absent: Rales, Rhonchi, Wheezes - Cardiovascular Exam Cardiovascular Exam: RRR, Murmur. absent: Gallop, Rubs - GI/Abdominal Exam GI & Abdominal Exam: Soft, Tenderness (epigastric). absent: Distended, Guarding , Rebound - Extremities Exam Extremities Exam: Normal Inspection - Back Exam Back Exam: NORMAL INSPECTION - Neurological Exam Neurological Exam: Alert, Awake, Oriented x3 - Psychiatric Exam Psychiatric exam: Normal Affect, Normal Mood - Skin Skin Exam: Dry, Intact, Pallor, Warm
[2018-01-06] MEDS ORDERED: Nitroglycerin 2% Ointment Foilpak UD TOP STA (18:40)
--- NOTE | 2018-01-06 18:44 | CT ---
Date of service: 01/06/2018 PROCEDURE: CT Abdomen and Pelvis without intravenous contrast HISTORY: Benzodiazapine withdrawal presenting with abdominal pain. COMPARISON: 01/04/2018. Abdominal ultrasound. 01/02/2018 CT abdomen and pelvis. 08/02/[address] scan TECHNIQUE: Oral contrast only. Radiation dose: Total exam DLP = 356.42 mGy-cm. This CT exam was performed using one or more of the following dose reduction techniques: Automated exposure control, adjustment of the mA and/or kV according to patient size, and/or use of iterative reconstruction technique. FINDINGS: LOWER THORAX: Completely visualize multifocal infiltrates. Bilateral small pleural effusions. LIVER: Unremarkable. No gross lesion or ductal dilatation. GALLBLADDER AND BILE DUCTS: Status post cholecystectomy. No abnormality is seen in the gallbladder fossa. PANCREAS: Unremarkable. No gross lesion or ductal dilatation. SPLEEN: Unremarkable. ADRENALS: Unremarkable. No mass. KIDNEYS AND URETERS: Unremarkable right kidney. Atrophic left kidney. Midpole cyst identified, finding confirmed on recent ultrasound measuring 2.3 cm. VASCULATURE: Unremarkable. No aortic aneurysm. BOWEL: Diverticulosis without an acute inflammatory component or other associated pathologic process. Constipation without fecal impaction or obstruction. APPENDIX: Unremarkable. Normal appendix. PERITONEUM: Unremarkable. No free fluid. No free air. LYMPH NODES: Unremarkable. No enlarged lymph nodes. BLADDER: Unremarkable. REPRODUCTIVE: Unremarkable. BONES: No acute fracture. Scoliosis, secondary degenerative change at multiple levels. OTHER FINDINGS: None. IMPRESSION: No acute findings related to/accounting for the clinical presentation. Additional benign and/or incidental findings described above. No significant interval change compared to the prior examination(s).
[2018-01-06] MEDS ORDERED: Morphine 4 mg/ml ISec IVP ONE (18:45)
[2018-01-06] MEDS ORDERED: Nitroglycerin 2% Ointment Foilpak UD TOP ONE (18:46)
--- NOTE | 2018-01-06 19:11 | CARD ---
APPROVED REPORT Date of service: 01/06/2018 EKG Measurement Heart [id number] <Conclusion> Accelerated Junctional rhythm Abnormal ECG
[2018-01-06 19:56] LABS: HEMOGLOBIN 10.4 g/dL (12.0-16.0); MEAN CELL VOLUME 90.2 fl (80.0-105.0); MEAN CORPUSCULAR HEMOGLOBIN 29.1 pg (25.0-35.0); MEAN CORPUSCULAR HGB CONC 32.3 g/dl (31.0-37.0); MEAN PLATELET VOLUME 11.7 fl (7.0-11.0); RBC 3.57 10^6/uL (3.5-6.1); RED CELL DISTRIBUTION WIDTH 14.9 % (11.5-14.5); WHITE BLOOD COUNT 16.7 10^3/ul (4.5-11.0)
[2018-01-07] MEDS ORDERED: Dextrose 50% SYRINGE Inj (50 ml) ONE (00:02)
[2018-01-07] MEDS ORDERED: Midazolam 2 MG/2 ML VIAL ONE (00:06)
[2018-01-07] MEDS ORDERED: Dextrose 50% SYRINGE Inj (50 ml) IVP STA (00:07)
--- NOTE | 2018-01-07 00:33 | PCM.PROC ---
Procedures Attestation:: I certify that I have explained the specified Operation(s) or Procedure(s), risks, benefits and reasonable alternatives to the Patient and/or other person responsible. The opportunity was given to ask questions and all questions answered - Intubation Time Out Performed: Yes Sedative: None Laryngoscope: Shira ET Tube Size: 7.5 ET Tube Uncuffed: No ET Tube Secured at Depth: 22 ET Tube Secured Locarion: Lips ET Tube Placement Confirmation: Visualized Passing Through Cords, Breath Sounds Equal Bilaterally, No Breath Sounds Over Epigastrum, Confirmation w/Capnometry Patient Tolerated Procedure: Well Procedure Immediate Complications: None Additional comments: Cuff was inflated post-intubation with positive breath sounds in bilateral lung cheung. Procedure supervised by Dr. Kyle Quezada who was present for all ramírez components of procedure
--- NOTE | 2018-01-07 00:53 | CP.PCM.CON ---
<BerrySemaj - Last Filed: 01/07/18 03:59> History of Present Illness - History of Present Illness History of Present Illness: ICU consult note: Berry PGY - 2, IM Resident Reason for consult: Respiratory failure HPI: ENVIRONMENTAL SERVICES SPECIALIST was called for respiratory distress in addition to tachycardia. Patient was found mildly confused and barely responsive in bed with increased work of breathing. Vitals were assessed, blood glucose was obtained. Patient was intubated due to poor oxygen saturation, was put on oxygen tank and taken down to ICU. 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 Of note, made PMD, Dr. Lyle, aware of patient's situation; left a voicemail after repeatedly calling daughter; son's voicemail was full at this point. Review of Systems: 12 point ROS elicited but unobtainable 2/2 patient's mental and intubation status Surgical Hx: Unobtainable Medical Hx: COPD, CHF, HTN, CAD s/ CABG (from chart review) Allergies: NKDA Social Hx: Denies tobacco, illicits, alcohol Home Meds: Reviewed, as per MAR Family Hx: Epilepsy Past Patient History - Infectious Disease Hx of Infectious Diseases: None - Tetanus Immunizations Tetanus Immunization: Unknown - Past Social History Smoking Status: Never Smoked - CARDIAC Hx Cardiac Disorders: Yes Hx Hypertension: Yes - PULMONARY Hx Chronic Obstructive Pulmonary Disease (COPD): Yes - NEUROLOGICAL Hx Neurological Disorder: No - HEENT Hx HEENT Problems: Yes (post nasal drip) Hx Cataracts: Yes (Bilateral surgery) - RENAL Hx Chronic Kidney Disease: No - ENDOCRINE/METABOLIC Hx Endocrine Disorders: No - HEMATOLOGICAL/ONCOLOGICAL Hx Blood Disorders: No - INTEGUMENTARY Hx Dermatological Problems: Yes Other/Comment: dry skin ble, light brown moles over back, chest, abd, varicose veins, smallcut to r 2nd toe from scissor when "I was cutting my toenails" pt stated, thick hard toenails to both great toes, mid chest scar from open heart sx - MUSCULOSKELETAL/RHEUMATOLOGICAL Hx Falls: No - GASTROINTESTINAL Hx Gastrointestinal Disorders: Yes (CONSTIPATION) - GENITOURINARY/GYNECOLOGICAL Hx Genitourinary Disorders: Yes (URGENCY,FREQUENCY,SOME INCONTINENCY) - PSYCHIATRIC Hx Substance Use: No - SURGICAL HISTORY Hx Cholecystectomy: Yes 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.) - ANESTHESIA Hx Anesthesia Reactions: No Hx Malignant Hyperthermia: No Meds Allergies/Adverse Reactions: Allergies Allergy/AdvReac Type Severity Reaction Status Date / Time No Known Allergies Allergy Verified 08/02/17 15:20 - Medications Medications: Current Medications Acetaminophen (Tylenol 325mg Tab) 650 mg PO Q4H PRN PRN Reason: Pain, severe (8-10) Last Admin: 01/06/18 14:31 Dose: 650 mg Albuterol/Ipratropium (Duoneb 3 Mg/0.5 Mg (3 Ml) Ud) 3 ml IH Q2H PRN PRN Reason: Shortness of Breath Last Admin: 01/03/18 08:35 Dose: 3 ml Alprazolam (Xanax) 0.25 mg PO BID [facility] PRN Reason: Protocol Stop: 01/10/18 10:01 Last Admin: 01/06/18 18:50 Dose: Not Given Amlodipine Besylate (Norvasc) 5 mg PO DAILY [facility] Last Admin: 01/06/18 09:34 Dose: Not Given Aspirin (Aspirin Chewable) 81 mg PO DAILY [facility] Atorvastatin Calcium (Lipitor) 20 mg PO HS [facility] Last Admin: 01/06/18 22:58 Dose: Not Given Budesonide (Pulmicort Respules) 0.5 mg IH [id number] [facility] Last Admin: 01/06/18 20:15 Dose: 0.5 mg Docusate Sodium (Colace) 100 mg PO BID [facility] Last Admin: 01/06/18 18:02 Dose: Not Given Doxycycline Hyclate (Doryx) 100 mg PO Q12 [facility] PRN Reason: Protocol Last Admin: 01/06/18 22:59 Dose: Not Given Enoxaparin Sodium (Lovenox) 30 mg SC DAILY [facility] PRN Reason: Protocol Last Admin: 01/06/18 13:08 Dose: 30 mg Fluticasone Propionate (Flonase) 1 actuation NS DAILY [facility] Last Admin: 01/06/18 09:34 Dose: Not Given Furosemide (Lasix) 40 mg IVP DAILY [facility] Last Admin: 01/06/18 09:33 Dose: 40 mg Cefepime HCl (Maxipime 2gm) 2 gm in 100 mls @ 100 mls/hr IVPB Q12 [facility] PRN Reason: Protocol Stop: 01/10/18 10:01 Last Admin: 01/06/18 22:52 Dose: 100 mls/hr Isosorbide Mononitrate (Imdur) 30 mg PO DAILY [facility] Levalbuterol HCl (Xopenex) 1.25 mg IH [id number] [facility] Last Admin: 01/06/18 20:15 Dose: 1.25 mg Metoprolol Succinate (Toprol Xl) 50 mg PO DAILY [facility] Last Admin: 01/06/18 09:33 Dose: 50 mg Ondansetron HCl (Zofran Inj) 4 mg IVP Q8 PRN PRN Reason: Nausea/Vomiting Last Admin: 01/06/18 14:31 Dose: 4 mg Pantoprazole Sodium (Protonix Inj) 40 mg IVP DAILY [facility] Primidone (Mysoline) 50 mg PO DAILY [facility] Last Admin: 01/06/18 09:34 Dose: 50 mg Ramipril (Altace) 2.5 mg PO DAILY [facility] Physical Exam - Constitutional Appears: In Acute Distress, Chronically Ill - Head Exam Head Exam: ATRAUMATIC, NORMAL INSPECTION, NORMOCEPHALIC - Eye Exam Eye Exam: EOMI, Normal appearance, PERRL Pupil Exam: NORMAL ACCOMODATION, PERRL - ENT Exam ENT Exam: Mucous Membranes Moist, Normal Exam - Neck Exam Neck exam: Positive for: Normal Inspection - Respiratory Exam Respiratory Exam: Clear to Auscultation Bilateral, NORMAL BREATHING PATTERN. absent: Rales, Rhonchi, Wheezes, Stridor - Cardiovascular Exam Cardiovascular Exam: Bradycardia, REGULAR RHYTHM. absent: Diastolic murmur, Gallop - GI/Abdominal Exam GI & Abdominal Exam: Normal Bowel Sounds, Soft. absent: Tenderness - Extremities Exam Extremities exam: Positive for: normal inspection - Back Exam Back exam: NORMAL INSPECTION - Neurological Exam Neurological exam: Alert, CN II-XII Intact, Normal Gait, Oriented x3, Reflexes Normal - Skin Skin Exam: Pallor, Warm Results - Vital Signs Recent Vital Signs: Last Vital Signs Temp 98.2 F 01/06/18 17:24 Pulse 80 01/06/18 18:00 Resp 18 01/06/18 17:24 BP 100/60 01/06/18 17:24 Pulse Ox 98 01/06/18 17:24 - Labs Result Diagrams: 01/07/18 01:05 01/07/18 01:05 Labs: Laboratory Results - last 24 hr 01/06/18 01/06/18 01/06/18 05:30 05:30 11:45 WBC 12.1 H RBC 3.58 Hgb 10.3 L Hct 32.2 L MCV 89.9 MCH 28.8 MCHC 32.0 RDW 15.0 H Plt Count 179 MPV 11.4 H Gran % 84.8 H Lymph % (Auto) 5.4 L Marion % (Auto) 9.6 H Eos % (Auto) 0.0 L Baso % (Auto) 0.2 Gran # 10.28 H Lymph # (Auto) 0.7 L Marion # (Auto) 1.2 H Eos # (Auto) 0.0 Baso # (Auto) 0.03 Sodium 132 Potassium 5.3 H Chloride 99 Carbon Dioxide 22 Anion Gap 16 BUN 42 H Creatinine 1.2 Est GFR ( Amer) 51 Est GFR (Non-Af Amer) 42 Random Glucose 108 Calcium 9.0 Troponin I 0.21 H* D 0.20 H* 01/06/18 19:45 WBC 16.7 H D RBC 3.57 Hgb 10.4 L Hct 32.2 L MCV 90.2 MCH 29.1 MCHC 32.3 RDW 14.9 H Plt Count 173 MPV 11.7 H Gran % Lymph % (Auto) Marion % (Auto) Eos % (Auto) Baso % (Auto) Gran # Lymph # (Auto) Marion # (Auto) Eos # (Auto) Baso # (Auto) Sodium Potassium Chloride Carbon Dioxide Anion Gap BUN Creatinine Est GFR ( Amer) Est GFR (Non-Af Amer) Random Glucose Calcium Troponin I Assessment & Plan - Assessment and Plan (Free Text) Assessment: 87 year old female with pertinent medical history of COPD, CHF, under ICU management for hypoxic respiratory failure, intubated not yet sedated. Recommend: - Chest XR - EKG - Troponin - CBC/CMP - VBG with shock panel - Propofol drip PRN and only if hemodynamically stable - Levophed drip - FS q1h X 3 - AM labs - H&H q4 hours - Protonix Drip - Dopamine Drip - Maintain normothermia, sats > 92, MAP > 70, euvolemia, euglycemia <Quezada,Guli N - Last Filed: 01/08/18 05:25> Meds - Medications Medications: Current Medications Albuterol/Ipratropium (Duoneb 3 Mg/0.5 Mg (3 Ml) Ud) 3 ml IH Q2H PRN PRN Reason: Shortness of Breath Last Admin: 01/03/18 08:35 Dose: 3 ml Alprazolam (Xanax) 0.25 mg PO BID [facility] PRN Reason: Protocol Stop: 01/10/18 10:01 Last Admin: 01/07/18 17:34 Dose: Not Given Atorvastatin Calcium (Lipitor) 20 mg PO HS [facility] Last Admin: 01/07/18 22:05 Dose: Not Given Budesonide (Pulmicort Respules) 0.5 mg IH [id number] [facility] Last Admin: 01/07/18 20:08 Dose: 0.5 mg Docusate Sodium (Colace) 100 mg PO BID [facility] Last Admin: 01/07/18 17:33 Dose: Not Given Doxycycline Hyclate (Doryx) 100 mg PO Q12 [facility] PRN Reason: Protocol Last Admin: 01/07/18 22:05 Dose: Not Given Fluticasone Propionate (Flonase) 1 actuation NS DAILY [facility] Last Admin: 01/07/18 15:57 Dose: Not Given Pantoprazole Sodium (Protonix 40mg Ivpb) 40 mg in 100 mls @ 20 mls/hr IVPB .Q5H [facility] Last Admin: 01/08/18 04:51 Dose: 20 mls/hr Sodium Bicarbonate 100 meq/ (Dextrose/Sodium Chloride) 1,100 mls @ 100 mls/hr IV .Q11H [facility] Last Admin: 01/07/18 21:17 Dose: 100 mls/hr Dopamine HCl/Dextrose (Dopamine 400mg/250ml D5w) 400 mg in 250 mls @ 10.206 mls /hr IV .Q24H PRN; Protocol; 5 MCG/KG/MIN PRN Reason: TITRATE PER MD ORDER Last Titration: 01/07/18 19:13 Dose: 10 mcg/kg/min, 20.412 mls/hr NOREPINEPHRINE BIT/0.9 % NACL (Levophed 4 Mg/ 250 Ml Ns Premixed) 4 mg in 250 mls @ 15 mls/hr IV .[id number] PRN; Protocol; 4 MCG/MIN PRN Reason: TITRATE PER MD ORDER Last Admin: 01/08/18 03:29 Dose: 20 mcg/min, 75 mls/hr Meropenem 500 mg/ Sodium (Chloride) 50 mls @ 100 mls/hr IVPB Q12 [facility] PRN Reason: Protocol Stop: 01/14/18 08:31 Last Admin: 01/07/18 22:02 Dose: 100 mls/hr Fentanyl Citrate (Fentanyl Citrate/Sodium Chloride 1 Mg/100 Ml) 1,000 mcg in 100 mls @ 2 mls/hr IV .Q24H PRN; Protocol; 20 MCG/HR PRN Reason: TITRATE PER MD ORDER Last Admin: 01/07/18 19:54 Dose: 100 mcg/hr, 10 mls/hr Morphine Sulfate (Morphine Manager Ship 1 Mg/Ml) 30 mls @ 2 mls/hr IV PRN [facility]; 2 MG/HR PRN Reason: Protocol Last Admin: 01/07/18 19:58 Dose: 2 mg/hr, 2 mls/hr Levalbuterol HCl (Xopenex) 1.25 mg IH [id number] [facility] Last Admin: 01/08/18 02:27 Dose: 1.25 mg Metoprolol Tartrate (Lopressor) 2.5 mg IV Q8H [facility] Last Admin: 01/08/18 02:46 Dose: Not Given Ondansetron HCl (Zofran Inj) 4 mg IVP Q8 PRN PRN Reason: Nausea/Vomiting Last Admin: 01/06/18 14:31 Dose: 4 mg Pantoprazole Sodium (Protonix Inj) 40 mg IVP DAILY [facility] Primidone (Mysoline) 50 mg PO DAILY [facility] Last Admin: 01/07/18 15:57 Dose: Not Given Ramipril (Altace) 2.5 mg PO DAILY [facility] Results - Vital Signs Recent Vital Signs: Last Vital Signs Temp 97.3 F L 01/08/18 03:04 Pulse 71 01/08/18 03:04 Resp 33 H 01/07/18 08:04 BP 68/32 L 01/08/18 03:05 Pulse Ox 97 01/08/18 03:04 - Labs Result Diagrams: 01/07/18 15:47 01/07/18 15:47 Labs: Laboratory Results - last 24 hr 01/04/18 01/07/18 01/07/18 06:05 01:05 06:00 WBC RBC Hgb Hct MCV MCH MCHC RDW Plt Count MPV Gran % Lymph % (Auto) Marion % (Auto) Eos % (Auto) Baso % (Auto) Gran # Lymph # (Auto) Marion # (Auto) Eos # (Auto) Baso # (Auto) Neutrophils % (Manual) Band Neutrophils % Lymphocytes % (Manual) Monocytes % (Manual) Platelet Evaluation Polychromasia Poikilocytosis (manual Anisocytosis (manual) Tear Drop Cells Ovalocytes Acanthocytes (Spur) PT INR pCO2 pO2 HCO3 ABG pH ABG Total CO2 ABG O2 Saturation ABG O2 Content ABG Base Excess ABG Hemoglobin ABG Carboxyhemoglobin POC ABG HHb (Measured) ABG Methemoglobin ABG O2 Capacity ABG Potassium VBG pH VBG pCO2 VBG HCO3 VBG Total CO2 VBG O2 Sat (Calc) VBG Base Excess VBG Potassium Hgb O2 Saturation Sodium 139 Chloride 104 Glucose Lactate FiO2 Potassium 5.6 H* Carbon Dioxide 11 L Anion Gap 30 H BUN 52 H Creatinine 2.0 H Est GFR ( Amer) 29 Est GFR (Non-Af Amer) 24 Random Glucose 167 H Lactic Acid Calcium 8.4 Phosphorus Magnesium Total Bilirubin AST ALT Alkaline Phosphatase 161 H Lactate Dehydrogenase Total Creatine Kinase CK-MB (CK-2) CK-MB (CK-2) % Troponin I NT-Pro-B Natriuret Pep 60611 H Total Protein Albumin Globulin Albumin/Globulin Ratio Procalcitonin Arterial Blood Potassium Venous Blood Potassium Blood Type O POSITIVE Antibody Screen Negative Crossmatch See Detail BBK History Checked Patient has bt 01/07/18 01/07/18 01/07/18 06:00 06:00 08:25 WBC 22.4 H D RBC 2.65 L Hgb 7.8 L Hct 25.4 L MCV 95.8 MCH 29.4 MCHC 30.7 L RDW 15.0 H Plt Count 99 L MPV 12.0 H Gran % 88.3 H Lymph % (Auto) 6.8 L Marion % (Auto) 4.8 Eos % (Auto) 0.0 L Baso % (Auto) 0.1 Gran # 19.79 H Lymph # (Auto) 1.5 Marion # (Auto) 1.1 H Eos # (Auto) 0.0 Baso # (Auto) 0.02 Neutrophils % (Manual) Band Neutrophils % Lymphocytes % (Manual) Monocytes % (Manual) Platelet Evaluation Polychromasia Poikilocytosis (manual Anisocytosis (manual) Tear Drop Cells Ovalocytes Acanthocytes (Spur) PT INR pCO2 23 L pO2 65 H 186.0 H HCO3 7.8 L* ABG pH 7.14 L* ABG Total CO2 8.5 L ABG O2 Saturation 100.7 H ABG O2 Content ABG Base Excess -19.5 L ABG Hemoglobin ABG Carboxyhemoglobin POC ABG HHb (Measured) ABG Methemoglobin ABG O2 Capacity ABG Potassium 5.7 H VBG pH 7.08 L* VBG pCO2 34.0 L VBG HCO3 10.1 L VBG Total CO2 11.1 L VBG O2 Sat (Calc) 93.8 H VBG Base Excess -18.9 L VBG Potassium 5.6 H Hgb O2 Saturation Sodium 136.0 136.0 Chloride 105.0 104.0 Glucose 173 H 168 H Lactate 15.2 H* 14.6 H* FiO2 21.0 100.0 Potassium Carbon Dioxide Anion Gap BUN Creatinine Est GFR ( Amer) Est GFR (Non-Af Amer) Random Glucose Lactic Acid Calcium Phosphorus Magnesium Total Bilirubin AST ALT Alkaline Phosphatase Lactate Dehydrogenase Total Creatine Kinase CK-MB (CK-2) CK-MB (CK-2) % Troponin I NT-Pro-B Natriuret Pep Total Protein Albumin Globulin Albumin/Globulin Ratio Procalcitonin Arterial Blood Potassium 5.7 H Venous Blood Potassium 5.6 H Blood Type Antibody Screen Crossmatch BBK History Checked 01/07/18 01/07/18 01/07/18 09:30 09:30 10:00 WBC 21.3 H RBC 3.40 L Hgb 9.9 L D Hct 32.5 L MCV 95.6 MCH 29.1 MCHC 30.5 L RDW 15.4 H Plt Count 85 L MPV 12.1 H Gran % 91.7 H Lymph % (Auto) 4.8 L Marion % (Auto) 3.5 Eos % (Auto) 0.0 L Baso % (Auto) 0.0 Gran # 19.55 H Lymph # (Auto) 1.0 L Marion # (Auto) 0.7 H Eos # (Auto) 0.0 Baso # (Auto) 0.01 Neutrophils % (Manual) 84 H Band Neutrophils % 6 H Lymphocytes % (Manual) 8 L Monocytes % (Manual) 2 Platelet Evaluation Low Polychromasia Slight Poikilocytosis (manual Slight Anisocytosis (manual) Slight Tear Drop Cells 1+ Ovalocytes Slight Acanthocytes (Spur) 2+ PT INR pCO2 pO2 HCO3 ABG pH ABG Total CO2 ABG O2 Saturation ABG O2 Content ABG Base Excess ABG Hemoglobin ABG Carboxyhemoglobin POC ABG HHb (Measured) ABG Methemoglobin ABG O2 Capacity ABG Potassium VBG pH VBG pCO2 VBG HCO3 VBG Total CO2 VBG O2 Sat (Calc) VBG Base Excess VBG Potassium Hgb O2 Saturation Sodium Chloride Glucose Lactate FiO2 Potassium Carbon Dioxide Anion Gap BUN Creatinine Est GFR ( Amer) Est GFR (Non-Af Amer) Random Glucose Lactic Acid 14.3 H* Calcium Phosphorus Magnesium Total Bilirubin AST ALT Alkaline Phosphatase Lactate Dehydrogenase Total Creatine Kinase CK-MB (CK-2) CK-MB (CK-2) % Troponin I NT-Pro-B Natriuret Pep Total Protein Albumin Globulin Albumin/Globulin Ratio Procalcitonin 0.86 H Arterial Blood Potassium Venous Blood Potassium Blood Type Antibody Screen Crossmatch BBK History Checked 01/07/18 01/07/18 01/07/18 10:00 13:00 13:00 WBC RBC Hgb Hct MCV MCH MCHC RDW Plt Count MPV Gran % Lymph % (Auto) Marion % (Auto) Eos % (Auto) Baso % (Auto) Gran # Lymph # (Auto) Marion # (Auto) Eos # (Auto) Baso # (Auto) Neutrophils % (Manual) Band Neutrophils % Lymphocytes % (Manual) Monocytes % (Manual) Platelet Evaluation Polychromasia Poikilocytosis (manual Anisocytosis (manual) Tear Drop Cells Ovalocytes Acanthocytes (Spur) PT INR pCO2 pO2 56 H HCO3 ABG pH ABG Total CO2 ABG O2 Saturation ABG O2 Content ABG Base Excess ABG Hemoglobin ABG Carboxyhemoglobin POC ABG HHb (Measured) ABG Methemoglobin ABG O2 Capacity ABG Potassium VBG pH 7.02 L* VBG pCO2 32.0 L VBG HCO3 8.3 L VBG Total CO2 9.3 L VBG O2 Sat (Calc) 86.0 H VBG Base Excess -21.7 L VBG Potassium 6.8 H* Hgb O2 Saturation Sodium 140 140 135.0 Chloride 104 105 104.0 Glucose 192 H Lactate 14.5 H* FiO2 21.0 Potassium 6.5 H* 6.8 H* Carbon Dioxide 10 L 8 L Anion Gap 33 H 34 H BUN 51 H 50 H Creatinine 2.3 H 2.4 H Est GFR ( Amer) 24 23 Est GFR (Non-Af Amer) 20 19 Random Glucose 132 H 183 H Lactic Acid Calcium 8.3 L 8.2 L Phosphorus 10.8 H Magnesium 2.2 Total Bilirubin 3.4 H 3.3 H AST 19272 H 09993 H ALT 3502 H 3727 H Alkaline Phosphatase 177 H 168 H Lactate Dehydrogenase 39362 H Total Creatine Kinase 1219 H CK-MB (CK-2) 22.3 H CK-MB (CK-2) % 1.8 L Troponin I 0.57 H* D 0.72 H* D NT-Pro-B Natriuret Pep Total Protein 5.6 L 5.5 L Albumin 3.0 2.9 L Globulin 2.6 2.6 Albumin/Globulin Ratio 1.1 1.1 Procalcitonin Arterial Blood Potassium Venous Blood Potassium 6.8 H* Blood Type Antibody Screen Crossmatch BBK History Checked 01/07/18 01/07/18 01/07/18 14:05 15:47 15:47 WBC RBC Hgb Hct MCV MCH MCHC RDW Plt Count MPV Gran % Lymph % (Auto) Marion % (Auto) Eos % (Auto) Baso % (Auto) Gran # Lymph # (Auto) Marion # (Auto) Eos # (Auto) Baso # (Auto) Neutrophils % (Manual) Band Neutrophils % Lymphocytes % (Manual) Monocytes % (Manual) Platelet Evaluation Polychromasia Poikilocytosis (manual Anisocytosis (manual) Tear Drop Cells Ovalocytes Acanthocytes (Spur) PT 28.4 H INR 2.45 pCO2 19 L* pO2 245.0 H HCO3 5.8 L* ABG pH 7.09 L* ABG Total CO2 6.4 L ABG O2 Saturation 100.6 H ABG O2 Content 13.8 L ABG Base Excess -22.2 L ABG Hemoglobin 9.6 L ABG Carboxyhemoglobin 1.7 H POC ABG HHb (Measured) -0.6 L ABG Methemoglobin 1.1 ABG O2 Capacity 13.7 L ABG Potassium VBG pH VBG pCO2 VBG HCO3 VBG Total CO2 VBG O2 Sat (Calc) VBG Base Excess VBG Potassium Hgb O2 Saturation 97.8 Sodium Chloride Glucose Lactate FiO2 100.0 Potassium Carbon Dioxide Anion Gap BUN Creatinine Est GFR ( Amer) Est GFR (Non-Af Amer) Random Glucose Lactic Acid 13.9 H* Calcium Phosphorus Magnesium Total Bilirubin AST ALT Alkaline Phosphatase Lactate Dehydrogenase Total Creatine Kinase CK-MB (CK-2) CK-MB (CK-2) % Troponin I NT-Pro-B Natriuret Pep Total Protein Albumin Globulin Albumin/Globulin Ratio Procalcitonin Arterial Blood Potassium Venous Blood Potassium Blood Type Antibody Screen Crossmatch BBK History Checked 01/07/18 01/07/18 15:47 15:47 WBC 22.5 H RBC 3.34 L Hgb 9.6 L Hct 31.3 L MCV 93.7 MCH 28.7 MCHC 30.7 L RDW 15.9 H Plt Count 53 L MPV 11.9 H Gran % 89.8 H Lymph % (Auto) 5.0 L Marion % (Auto) 5.2 Eos % (Auto) 0.0 L Baso % (Auto) 0.0 Gran # 20.21 H Lymph # (Auto) 1.1 L Marion # (Auto) 1.2 H Eos # (Auto) 0.0 Baso # (Auto) 0.01 Neutrophils % (Manual) Band Neutrophils % Lymphocytes % (Manual) Monocytes % (Manual) Platelet Evaluation Polychromasia Poikilocytosis (manual Anisocytosis (manual) Tear Drop Cells Ovalocytes Acanthocytes (Spur) PT INR pCO2 pO2 HCO3 ABG pH ABG Total CO2 ABG O2 Saturation ABG O2 Content ABG Base Excess ABG Hemoglobin ABG Carboxyhemoglobin POC ABG HHb (Measured) ABG Methemoglobin ABG O2 Capacity ABG Potassium VBG pH VBG pCO2 VBG HCO3 VBG Total CO2 VBG O2 Sat (Calc) VBG Base Excess VBG Potassium Hgb O2 Saturation Sodium 143 Chloride 104 Glucose Lactate FiO2 Potassium 6.5 H* Carbon Dioxide 12 L Anion Gap 34 H BUN 49 H Creatinine 2.4 H Est GFR ( Amer) 23 Est GFR (Non-Af Amer) 19 Random Glucose 146 H Lactic Acid Calcium 7.9 L Phosphorus Magnesium Total Bilirubin 3.5 H AST 33429 H ALT 4075 H Alkaline Phosphatase 185 H Lactate Dehydrogenase Total Creatine Kinase CK-MB (CK-2) CK-MB (CK-2) % Troponin I NT-Pro-B Natriuret Pep Total Protein 5.4 L Albumin 2.8 L Globulin 2.6 Albumin/Globulin Ratio 1.1 Procalcitonin Arterial Blood Potassium Venous Blood Potassium Blood Type Antibody Screen Crossmatch BBK History Checked
[2018-01-07] MEDS ORDERED: Amiodarone 150 mg/D5W 100 ml 150 MG/100 ML BAG IVPB ONE (01:05)
[2018-01-07] MEDS ORDERED: Amiodarone 150 mg/D5W 100 ml 150 MG/100 ML BAG ONE (01:07)
[2018-01-07 01:14] LABS: BASO # 0.01 K/mm3 (0.0-2.0); BASO % 0.1 % (0.0-3.0); GRAN # 11.53 (1.4-6.5); GRAN % 73.8 % (50.0-68.0); HEMOGLOBIN 8.9 g/dL (12.0-16.0); LYMPH # 1.6 (1.2-3.4); LYMPH % 10.2 % (22.0-35.0); MEAN CELL VOLUME 96.4 fl (80.0-105.0); MEAN CORPUSCULAR HEMOGLOBIN 29.1 pg (25.0-35.0); MEAN CORPUSCULAR HGB CONC 30.2 g/dl (31.0-37.0); MEAN PLATELET VOLUME 12.2 fl (7.0-11.0); MONO # 2.5 (0.1-0.6); MONO % 15.9 % (1.0-6.0); RBC 3.06 10^6/uL (3.5-6.1); WHITE BLOOD COUNT 15.6 10^3/ul (4.5-11.0)
[2018-01-07 01:27] LABS: VENOUS BLOOD GAS BASE EXCESS -23.1 mmol/L (0.0-2.0); VENOUS BLOOD GAS PO2 36 mm/Hg (30-55); VENOUS BLOOD PH 6.93 (7.32-7.43)
[2018-01-07] MEDS: DOPamine 400mg/250ml D5W 400 MG/250 ML BAG IV PRN (01:40)
[2018-01-07 01:53] LABS: ALB/GLOB RATIO 1.1 (1.1-1.8); ALBUMIN 3.1 g/dL (3.0-4.8); TROPONIN I 0.3 ng/mL
[2018-01-07] MEDS: NOREPINEPHRINE BIT/0.9 % NACL 4 MG/250 ML BAG IV PRN ×3 (02:00→23:48)
[2018-01-07] MEDS ORDERED: Insulin Regular 1 UNITS/0.01 ML ML SC ONE ×2 (02:03→02:17)
[2018-01-07] MEDS ORDERED: Dextrose 50% SYRINGE Inj (50 ml) IVP ONE ×2 (02:03→11:05)
[2018-01-07] MEDS ORDERED: Sodium Bicarbonate (8.4%) 50 Meq Syringe IVP ONE ×4 (02:04→14:18)
[2018-01-07 02:09] LABS: INR 1.98; PARTIAL THROMBOPLASTIN TIME 29.5 Seconds (25.1-36.5); PROTHROMBIN TIME 22.9 SECONDS (9.4-12.5)
--- NOTE | 2018-01-07 02:13 | PCM.RRT ---
COOK MANAGER Nurse Assessment - Situation Date: 01/07/18 Time COOK MANAGER was called: 00:01 COOK MANAGER Responder Arrival Time: 00:05 COOK MANAGER Location:: [address] [place] [address] Room Number: 364-1 COOK MANAGER Reason for Call: Change in Mental Status COOK MANAGER Called By: RN - IV IV Inserted during COOK MANAGER?: No - Respiratory Oxygen Delivery Method: Nasal Cannula @L/min Oxygen Flow Rate: 2 Received Nebulizer Treatments:: No Was the Patient Ventilated with Bag/Mask 100% O2?: No Secretions Suctioned?: No Was the Patient Intubated?: Yes Was the Patient Placed on a Ventilator?: No - Diagnostic Test Ordered EKG: No Chest X-Ray: No CT Scan: No CPR started during COOK MANAGER?: No - Vital Signs at end of COOK MANAGER Vital Signs at end of COOK MANAGER: Rapid Response End Vital Sign Blood Pressure 88/77 Pulse Rate 77 Respiratory Rate 8 O2 Sat by Pulse Oximetry 88 I.Reason for COOK MANAGER - A) Acute Change in Patient: (Select all that apply): Acute change in SpO2 less - Neurological Status (Select all that apply): Responsive, Confused, Lethargic, Weakness. absent: Alert, Oriented, Verbal, Follows Commands, Disoriented, Aggressive - Respiratory Oxygen Delivery Method: Nasal Cannula @L/min Oxygen Flow Rate: 2 - Constitutional Appears: In Acute Distress, Chronically Ill - Head Head Exam: ATRAUMATIC, NORMAL INSPECTION, NORMOCEPHALIC - Eyes Eye Exam: EOMI, Normal appearance, PERRL - Respiratory Exam Respiratory Exam: Clear to Ausculation Bilateral, NORMAL BREATHING PATTERN - Cardiovascular Exam Cardiovascular Exam: Bradycardia, REGULAR RHYTHM. absent: Gallop, Rubs - GI/Abdominal Exam GI & Abdominal Exam: Soft, Normal Bowel Sounds. absent: Rigid, Tenderness - Neurological Exam Neurological Exam: Awake, CN II-XII Intact. absent: Alert, Normal Gait, Oriented x3 - Extremities Exam Extremities Exam: Full ROM, Normal Capillary Refill, Normal Inspection Plan - Assessment of Findings&Treatment Plan COOK MANAGER was called for respiratory distress in addition to tachycardia. Patient was found mildly confused and barely responsive in bed with increased work of breathing. Vitals were assessed, blood glucose was obtained. Patient was intubated due to poor oxygen saturation, was put on oxygen tank and taken down to ICU. 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 Ordered: - Chest XR - EKG - Troponin - CBC/CMP - VBG - Propofol drip
[2018-01-07] MEDS ORDERED: Insulin Regular 1 UNITS/0.01 ML ML IVP ONE (02:17)
--- NOTE | 2018-01-07 02:28 | PCM.RRT ---
ALARM SECURITY OR SURVEILLANCE MONITOR Nurse Assessment - Situation Date: 01/07/18 Time ALARM SECURITY OR SURVEILLANCE MONITOR was called: 01:00 ALARM SECURITY OR SURVEILLANCE MONITOR Responder Arrival Time: 01:05 ALARM SECURITY OR SURVEILLANCE MONITOR Location:: Critical Care Unit Room Number: 364-1 ALARM SECURITY OR SURVEILLANCE MONITOR Reason for Call: Not Responding to Urgent Treatment (sj rodriguez) ALARM SECURITY OR SURVEILLANCE MONITOR Called By: RN - IV IV Inserted during ALARM SECURITY OR SURVEILLANCE MONITOR?: Yes - Respiratory Oxygen Delivery Method: Intubated Oxygen Flow Rate: 2 Received Nebulizer Treatments:: No Was the Patient Ventilated with Bag/Mask 100% O2?: Yes Secretions Suctioned?: Yes Was the Patient Intubated?: Yes Was the Patient Placed on a Ventilator?: No - Ventilator Settings Mode: PRVC - Diagnostic Test Ordered EKG: No Chest X-Ray: No CT Scan: No CPR started during ALARM SECURITY OR SURVEILLANCE MONITOR?: No - Vital Signs at end of ALARM SECURITY OR SURVEILLANCE MONITOR Vital Signs at end of ALARM SECURITY OR SURVEILLANCE MONITOR: Rapid Response End Vital Sign Blood Pressure 88/77 Pulse Rate 77 Respiratory Rate 8 O2 Sat by Pulse Oximetry 88 - Respiratory Oxygen Delivery Method: Nasal Cannula @L/min Oxygen Flow Rate: 2 Plan - Assessment of Findings&Treatment Plan Sj rodriguez called on patient X 2 - patient showed VTACH on monitor and then lost pulse and went into PEA. No shockable rhythm was found, 1 round epi given and ROSC achieved. Second sj rodriguez was called on patient, atropine, dopamine, and levophed started. Patient was given two rounds of CPR and finally ROSC was achieved. Patient's vent settings were at 350/5/16/100%. Central line placed after code
[2018-01-07] MEDS: Pantoprazole 40mg/100mL NS 40 MG/100 ML BAG IVPB SCH ×4 (04:16→20:30)
[2018-01-07] MEDS: Sodium Bicarbonate 8.4% 100 MEQ in Dextrose 5%/0.9% NS 1,000 ML IV SCH ×2 (04:18→21:17)
--- NOTE | 2018-01-07 05:06 | PCM.PROC ---
Procedures Attestation:: I certify that I have explained the specified Operation(s) or Procedure(s), risks, benefits and reasonable alternatives to the Patient and/or other person responsible. The opportunity was given to ask questions and all questions answered - Central Line Placement Right Internal Jugular Triple Lumen Catheter Aseptic technique was employed throughout the procedure: Hand Hygiene done prior to procedure, Full sterile barriers (mask, hair cover, sterile gown, sterile gloves), Full body sterile drape, Chloraprep Antiseptic: 30 second prep for IJ or SC sites CVP Time Out Performed: Yes Pt. Placed on Pulse Ox Monitor: Yes Central Line Prep: Chlorhexidine-Alcohol Combination Ultrasound Used for Placement: Yes Central Line Lumen Inserted: triple Central Line Length: 16 cm (16) Post Procedure: Sutured in Place, Good Blood Return, All Ports Aspirated, Flushed, Capped, Sterile Dressing Applied Secured by: Securement device Post procedure dressing: Gauze, Clear vapor permeable, Chlorhexidine disc ( Biopatch) Post Procedure X-Ray: Yes Patient Tolerated Procedure: Well Immediate Complications: None Additional Comments: Procedure supervised by Dr. Talha Little and Dr. Kyle Quezada, who were present for all ramírez potions of procedure
[2018-01-07 06:55] LABS: BASO # 0.02 K/mm3 (0.0-2.0); BASO % 0.1 % (0.0-3.0); GRAN # 19.79 (1.4-6.5); GRAN % 88.3 % (50.0-68.0); HEMOGLOBIN 7.8 g/dL (12.0-16.0); LYMPH # 1.5 (1.2-3.4); LYMPH % 6.8 % (22.0-35.0); MEAN CELL VOLUME 95.8 fl (80.0-105.0); MEAN CORPUSCULAR HEMOGLOBIN 29.4 pg (25.0-35.0); MEAN CORPUSCULAR HGB CONC 30.7 g/dl (31.0-37.0); MONO # 1.1 (0.1-0.6); MONO % 4.8 % (1.0-6.0); RBC 2.65 10^6/uL (3.5-6.1); WHITE BLOOD COUNT 22.4 10^3/ul (4.5-11.0)
[2018-01-07 07:25] LABS: CALCIUM 8.4 mg/dL (8.4-10.5)
[2018-01-07 08:00] LABS: VENOUS BLOOD GAS BASE EXCESS -18.9 mmol/L (0.0-2.0); VENOUS BLOOD GAS PO2 65 mm/Hg (30-55)
[2018-01-07] MEDS: Budesonide 0.5 mg/2 ml Inhal Susp UD IH SCH ×2 (08:01→20:08)
[2018-01-07] MEDS: Levalbuterol 1.25 MG/3 ML Inhal Soln UD IH SCH ×3 (08:02→20:07)
[2018-01-07 08:03] LABS: VENOUS BLOOD PH 7.08 (7.32-7.43)
[2018-01-07] MEDS ORDERED: Vancomycin 2 GM in Sodium Chloride 0.9% 500 ML IVPB ONE (08:28)
[2018-01-07 08:32] LABS: ARTERIAL BLOOD GAS O2 SAT 100.7 % (95-98); ARTERIAL BLOOD GAS PCO2 23 mm/Hg (35-45); ARTERIAL BLOOD GAS TCO2 8.5 mmol.L (22-28)
[2018-01-07 08:36] LABS: ARTERIAL BLOOD GAS HCO3 7.8 mmol/L (21-28); ARTERIAL BLOOD GAS PH 7.14 (7.35-7.45)
--- NOTE | 2018-01-07 08:52 | CARD ---
APPROVED REPORT Date of service: 01/07/2018 EKG Measurement Heart [id number] [id number] <Conclusion> Sinus tachycardia Right bundle branch block ST elevation, consider inferior injury or acute infarct ACUTE TN Consider right ventricular involvement in acute inferior infarct Abnormal ECG
--- NOTE | 2018-01-07 08:55 | PN ---
Copied To: José Miguel Kerns MD Attending MD: José Miguel Kerns MD DATE: 01/07/2018([id number]) PULMONARY NOTE SUBJECTIVE: The patient is now in the ICU and on the ventilator. She is awake and alert this morning. OBJECTIVE: VITAL SIGNS: Last temperature recorded was 98.2, pulse is 91, respiratory rate 16/16, blood pressure 105/46. HEENT: Normocephalic, atraumatic. No JVD. CARDIOVASCULAR: Systolic ejection murmur at the lower left sternal border. No S3 gallop. LUNGS: Decreased breath sounds at the bases. Mild bilateral rhonchi. No wheezing. EXTREMITIES: Mild edema. No cyanosis, no clubbing. Calves are nontender to palpation. GI: Abdomen is soft, nontender and nondistended. Bowel sounds are positive. SKIN: No acute rash. NEUROLOGIC: Exam limited at the present time. PERTINENT LABORATORY DATA: Chest x-ray was done this morning and reviewed. It is a very poor rotated film. There is a left lower lobe infiltrate noted. There appears to be small bilateral pleural effusions. There also appears to be a left-sided skin fold. Official results are pending. Arterial blood gas is ordered for this morning--pending. IMPRESSION: 1. Respiratory failure. 2. Status post cardiopulmonary resuscitation. 3. Advanced chronic obstructive pulmonary disease. 4. Left lower lobe pneumonia. 5. Non-ST elevation myocardial infarction. 6. Anemia. PLAN: The patient is currently in the ICU and on the ventilator. She is awake and alert this morning. I did discuss the case with the night nurse at length. I have also reviewed the chart at length. Apparently, yesterday afternoon, the patient began to experience further respiratory compromise with oxygen desaturation. She was thus intubated on the floor and transferred to the medical ICU for additional treatment. While in the ICU, the patient has had two episodes of cardiopulmonary resuscitation. She is currently on a Levophed drip. I did review the chest x-ray as above. The chest x-ray is a very poor rotated film. There appears to be a left lower lobe infiltrate with small bilateral pleural effusions. There is also a probable skin fold in the left upper lobe. Official results are pending. Arterial blood gas is ordered and pending. I will check that when feasible.. I would continue with the antibiotic coverage as per Infectious Disease. Input by Dr. Negron is noted. There are no temperatures noted. There is increased leukocytosis on today's labs. The leukocytosis may be multifactorial in nature. Input by Cardiology is also noted. The patient is critically ill at this point in time. Her future status/prognosis remains very guarded at best/poor. I will discuss the above with the entire ICU team in the next few moments. I will also discuss the above with Dr. Cheatham later this morning. José Miguel Kerns MD MTDD
--- NOTE | 2018-01-07 09:27 | RAD ---
Date of service: 01/07/2018 HISTORY: post-intubation COMPARISON: Comparison made with prior chest radiograph 01/02/2018 FINDINGS: Interval placement ETT, the tip of which lies approximately 3.3 cm above stacie. LUNGS: Right lower lobe of opacification may represent some combination of atelectasis/infiltrate and right-sided effusion. . Apparent right azygos fissure PLEURA: As above. No pneumothorax apparent. CARDIOVASCULAR: Heart remains enlarged. Sternotomy wires and prostatic valve unchanged. OSSEOUS STRUCTURES: No significant abnormalities. VISUALIZED UPPER ABDOMEN: Normal. OTHER FINDINGS: None. IMPRESSION: In situ ETT as above. Right lower lobe of opacification may represent some combination of atelectasis/infiltrate and right-sided effusion. .
--- NOTE | 2018-01-07 09:30 | CP.PCM.PN ---
Subjective - Date & Time of Evaluation Date of Evaluation: 01/07/18 Time of Evaluation: 07:00 - Subjective Subjective: Events of yesterday noted. Multi-organ deterioration with resp failure, CPR, intubation, transfer to CCU on pressors, IVF and bicarb drips. Awake, on vent. V/S noted. AF. BPs 90 - 100's recently PE: Lungs: rhonchi Cor.: S1S2 Abd.: soft Ext.: no edema Neuro.: alert I/O= 2540/200 Labs noted: WBS= 22,400, H/H = 7.8/25.4, PL Ct = 99,000, K+= 5.6, Cr = 2.0, trop= 0.30 ECG 01/05 : RSR, No change BC X2 NG at 3 days Urine C+S: NG Objective - Vital Signs/Intake and Output Vital Signs (last 24 hours): Temp Pulse Resp BP Pulse Ox 93.7 F L 94 H 33 H 94/77 L 80 L 01/07/18 08:08 01/07/18 08:08 01/07/18 08:04 01/07/18 07:00 01/07/18 07:30 Intake and Output: 01/07/18 01/07/18 06:59 18:59 Intake Total 2540 Output Total 200 Balance 2340 - Medications Medications: Current Medications Acetaminophen (Tylenol 325mg Tab) 650 mg PO Q4H PRN PRN Reason: Pain, severe (8-10) Last Admin: 01/06/18 14:31 Dose: 650 mg Albuterol/Ipratropium (Duoneb 3 Mg/0.5 Mg (3 Ml) Ud) 3 ml IH Q2H PRN PRN Reason: Shortness of Breath Last Admin: 01/03/18 08:35 Dose: 3 ml Alprazolam (Xanax) 0.25 mg PO BID [facility] PRN Reason: Protocol Stop: 01/10/18 10:01 Last Admin: 01/06/18 18:50 Dose: Not Given Amlodipine Besylate (Norvasc) 5 mg PO DAILY [facility] Last Admin: 01/06/18 09:34 Dose: Not Given Aspirin (Aspirin Chewable) 81 mg PO DAILY [facility] Atorvastatin Calcium (Lipitor) 20 mg PO HS [facility] Last Admin: 01/06/18 22:58 Dose: Not Given Budesonide (Pulmicort Respules) 0.5 mg IH [id number] [facility] Last Admin: 01/07/18 08:01 Dose: 0.5 mg Docusate Sodium (Colace) 100 mg PO BID [facility] Last Admin: 01/06/18 18:02 Dose: Not Given Doxycycline Hyclate (Doryx) 100 mg PO Q12 [facility] PRN Reason: Protocol Last Admin: 01/06/18 22:59 Dose: Not Given Enoxaparin Sodium (Lovenox) 30 mg SC DAILY [facility] PRN Reason: Protocol Last Admin: 01/06/18 13:08 Dose: 30 mg Fluticasone Propionate (Flonase) 1 actuation NS DAILY [facility] Last Admin: 01/06/18 09:34 Dose: Not Given Furosemide (Lasix) 40 mg IVP DAILY [facility] Last Admin: 01/06/18 09:33 Dose: 40 mg Pantoprazole Sodium (Protonix 40mg Ivpb) 40 mg in 100 mls @ 20 mls/hr IVPB .Q5H [facility] Last Admin: 01/07/18 04:16 Dose: 20 mls/hr Sodium Bicarbonate 100 meq/ (Dextrose/Sodium Chloride) 1,100 mls @ 100 mls/hr IV .Q11H [facility] Last Admin: 01/07/18 04:18 Dose: 100 mls/hr Dopamine HCl/Dextrose (Dopamine 400mg/250ml D5w) 400 mg in 250 mls @ 10.206 mls /hr IV .Q24H PRN; Protocol; 5 MCG/KG/MIN PRN Reason: TITRATE PER MD ORDER Last Titration: 01/07/18 01:50 Dose: 10 mcg/kg/min, 20.412 mls/hr NOREPINEPHRINE BIT/0.9 % NACL (Levophed 4 Mg/ 250 Ml Ns Premixed) 4 mg in 250 mls @ 15 mls/hr IV .[id number] PRN; Protocol; 4 MCG/MIN PRN Reason: TITRATE PER MD ORDER Last Titration: 01/07/18 05:00 Dose: 12 mcg/min, 45 mls/hr Meropenem 500 mg/ Sodium (Chloride) 50 mls @ 100 mls/hr IVPB Q12 [facility]ULUGETA PRN Reason: Protocol Stop: 01/14/18 08:31 Vancomycin HCl 2 gm/ Sodium (Chloride) 500 mls @ 170 mls/hr IVPB ONCE ONE PRN Reason: Protocol Stop: 01/07/18 11:24 Isosorbide Mononitrate (Imdur) 30 mg PO DAILY [facility] Levalbuterol HCl (Xopenex) 1.25 mg IH [id number] [facility] Last Admin: 01/07/18 08:02 Dose: 1.25 mg Metoprolol Tartrate (Lopressor) 2.5 mg IV Q8H [facility] Ondansetron HCl (Zofran Inj) 4 mg IVP Q8 PRN PRN Reason: Nausea/Vomiting Last Admin: 01/06/18 14:31 Dose: 4 mg Pantoprazole Sodium (Protonix Inj) 40 mg IVP DAILY [facility] Primidone (Mysoline) 50 mg PO DAILY [facility] Last Admin: 01/06/18 09:34 Dose: 50 mg Ramipril (Altace) 2.5 mg PO DAILY [facility] - Labs Labs: 01/07/18 06:00 01/07/18 06:00 PT 22.9 SECONDS (9.4-12.5) H 01/07/18 01:05 INR 1.98 01/07/18 01:05 APTT 29.5 Seconds (25.1-36.5) 01/07/18 01:05 Assessment and Plan - Assessment and Plan (Free Text) Assessment: Chest Pain, Abdominal Pain, Diarrhea Mild + trops, uncertain significance, R/O acute KS. Sudden deterioration yesterday with abd. and RAJENDRA pain, hyperkalemia, acute renal failure, metabolic acidosis, abn LFTs, coffee ground emesis via NGT, hypotension, respiratory failure, etc. 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 As per GI, Pulm., ID, Dr. Cheatham, Intensivists AB Titrate pressors. Transfuse as needed. Culture Will follow.
[2018-01-07] MEDS ORDERED: Phytonadione 10 MG in Sodium Chloride 0.9% 50 ML IV ONE (09:32)
[2018-01-07] MEDS ORDERED: Enoxaparin 30 mg Syringe SC SCH (10:00)
[2018-01-07 10:23] LABS: BASO # 0.01 K/mm3 (0.0-2.0); GRAN # 19.55 (1.4-6.5); GRAN % 91.7 % (50.0-68.0); HEMOGLOBIN 9.9 g/dL (12.0-16.0); LYMPH % 4.8 % (22.0-35.0); MEAN CELL VOLUME 95.6 fl (80.0-105.0); MEAN CORPUSCULAR HEMOGLOBIN 29.1 pg (25.0-35.0); MEAN CORPUSCULAR HGB CONC 30.5 g/dl (31.0-37.0); MEAN PLATELET VOLUME 12.1 fl (7.0-11.0); MONO # 0.7 (0.1-0.6); MONO % 3.5 % (1.0-6.0); PLATELET COUNT 85 10^3/uL (120.0-450.0); RED CELL DISTRIBUTION WIDTH 15.4 % (11.5-14.5); WHITE BLOOD COUNT 21.3 10^3/ul (4.5-11.0)
--- NOTE | 2018-01-07 10:27 | RAD ---
Date of service: 01/07/2018 HISTORY: Status post line placement COMPARISON: Comparison made with prior study 01/07/2018 at 00:20 8 hours. Note the examination is somewhat limited due to patient rotation. FINDINGS: In situ ETT, tip of which lies approximately 2.75 cm above stacie. Interval placement right IJ central venous line with tip in the SVC. There is also in situ NGT, the tip of which has not been included on this film though distal aspect does lie well below EG junction. LUNGS: Re- demonstrated is patchy opacification in the right lung base which may represent some combination of atelectasis/infiltrate and effusion. Hazy opacity throughout the left lung may represent a layering effusion or developing interstitial infiltrates. PLEURA: As above. No apparent pneumothorax apparent. CARDIOVASCULAR: Normal. OSSEOUS STRUCTURES: Re- demonstrated are multiple small calcific densities surrounding the left humeral head nonspecific. Rule out synovial osteochondromatosis. VISUALIZED UPPER ABDOMEN: Normal. OTHER FINDINGS: None. IMPRESSION: Support lines and tubes as above. Right lower lobe opacification may represent some combination of atelectasis/infiltrate and effusion. Hazy opacity left lung may represent layering effusion developing interstitial infiltrates. No evidence of pneumothorax
[2018-01-07] MEDS: Fentanyl 1000mcg/100ml NS 1,000 MCG/100 ML BAG IV PRN ×2 (10:30→19:54)
[2018-01-07 10:37] LABS: ALB/GLOB RATIO 1.1 (1.1-1.8); CALCIUM 8.3 mg/dL (8.4-10.5)
[2018-01-07 10:57] LABS: CK MB% 1.8 % (2.5-3.0); CK-MB 22.3 ng/mL (0.0-3.6)
[2018-01-07] MEDS ORDERED: Insulin Regular 1 UNITS/0.01 ML ML IVP STA (11:04)
[2018-01-07 11:05] LABS: TROPONIN I 0.57 ng/mL
--- NOTE | 2018-01-07 11:11 | CP.PCM.PN ---
Subjective - Date & Time of Evaluation Date of Evaluation: 01/07/18 Time of Evaluation: 10:25 - Subjective Subjective: Noted events overnight - patient had respiratory distress, then lethargy, and eventually developed pulseless electrical activity. Patient now intubated, was resuscitated, answers questions even on the ventilator. No fevers noted. Objective - Vital Signs/Intake and Output Vital Signs (last 24 hours): Temp Pulse Resp BP Pulse Ox 98 F 98 H 18 96/67 L 97 01/06/18 08:27 01/06/18 11:50 01/06/18 11:50 01/06/18 11:50 01/06/18 11:50 Intake and Output: 01/06/18 01/06/18 06:59 18:59 Intake Total 660 Output Total 1100 Balance -440 - Medications Medications: Current Medications Acetaminophen (Tylenol 325mg Tab) 650 mg PO Q4H PRN PRN Reason: Pain, severe (8-10) Last Admin: 01/06/18 05:45 Dose: 650 mg Albuterol/Ipratropium (Duoneb 3 Mg/0.5 Mg (3 Ml) Ud) 3 ml IH Q2H PRN PRN Reason: Shortness of Breath Last Admin: 01/03/18 08:35 Dose: 3 ml Alprazolam (Xanax) 0.25 mg PO BID [facility] PRN Reason: Protocol Stop: 01/10/18 10:01 Last Admin: 01/06/18 09:34 Dose: 0.25 mg Amlodipine Besylate (Norvasc) 5 mg PO DAILY [facility] Last Admin: 01/06/18 09:34 Dose: Not Given Aspirin (Ecotrin) 81 mg PO DAILY [facility] Last Admin: 01/05/18 10:15 Dose: 81 mg Atorvastatin Calcium (Lipitor) 20 mg PO HS [facility] Last Admin: 01/05/18 21:06 Dose: 20 mg Budesonide (Pulmicort Respules) 0.5 mg IH [id number] [facility] Last Admin: 01/06/18 07:47 Dose: 0.5 mg Docusate Sodium (Colace) 100 mg PO BID [facility] Last Admin: 01/06/18 09:35 Dose: Not Given Doxycycline Hyclate (Doryx) 100 mg PO Q12 [facility] PRN Reason: Protocol Last Admin: 01/06/18 09:33 Dose: 100 mg Enoxaparin Sodium (Lovenox) 30 mg SC DAILY [facility] PRN Reason: Protocol Fluticasone Propionate (Flonase) 1 actuation NS DAILY [facility] Last Admin: 01/06/18 09:34 Dose: Not Given Furosemide (Lasix) 40 mg IVP DAILY [facility] Last Admin: 01/06/18 09:33 Dose: 40 mg Cefepime HCl (Maxipime 2gm) 2 gm in 100 mls @ 100 mls/hr IVPB Q12 [facility] PRN Reason: Protocol Stop: 01/10/18 10:01 Last Admin: 01/06/18 10:21 Dose: 100 mls/hr Isosorbide Mononitrate (Imdur) 30 mg PO DAILY [facility] Levalbuterol HCl (Xopenex) 1.25 mg IH [id number] [facility] Last Admin: 01/06/18 07:58 Dose: Not Given Metoprolol Succinate (Toprol Xl) 50 mg PO DAILY [facility] Last Admin: 01/06/18 09:33 Dose: 50 mg Ondansetron HCl (Zofran Inj) 4 mg IVP Q8 PRN PRN Reason: Nausea/Vomiting Last Admin: 01/05/18 14:29 Dose: 4 mg Pantoprazole Sodium (Protonix Ec Tab) 40 mg PO 0600 [facility] Last Admin: 01/06/18 05:29 Dose: 40 mg Primidone (Mysoline) 50 mg PO DAILY [facility] Last Admin: 01/06/18 09:34 Dose: 50 mg Ramipril (Altace) 2.5 mg PO DAILY [facility] - Labs Labs: 01/06/18 05:30 01/06/18 05:30 PT 10.9 SECONDS (9.4-12.5) 01/02/18 18:57 INR 0.96 01/02/18 18:57 - Constitutional Appears: Other (intubated, answers questions) - Head Exam Head Exam: NORMAL INSPECTION - ENT Exam Additional comments: Et tube in place - Respiratory Exam Respiratory Exam: Decreased Breath Sounds - Cardiovascular Exam Cardiovascular Exam: +S1, +S2 - GI/Abdominal Exam GI & Abdominal Exam: Soft. absent: Tenderness Assessment and Plan - Assessment and Plan (Free Text) Plan: Assessment Severe sepsis woth VDRF after PEA R/O acute coronary event, on top of lower lobe healthcare-associated pneumonia with possible gram positive cocci and/or gram negative bacilli and/or atypical organisms COPD Mckeon's esophagus chronic CHF CAD atrial fibrillation COPD Plan will continue Doxycycline but will give a dose of IV Vancomycin and change Cefepime to Merrem and will check blood, sputum cx will continue to monitor clinically overall prognosis is poor
[2018-01-07] MEDS: Meropenem 500 MG in Sodium Chloride 0.9% 50 ML IVPB SCH ×2 (11:30→22:02)
--- NOTE | 2018-01-07 11:43 | CP.PCM.PN ---
Subjective - Date & Time of Evaluation Date of Evaluation: 01/07/18 Time of Evaluation: 07:00 - Subjective Subjective: PGY5 GI Follow Up Pt seen and examined in the ICU Overnight events noted MEDICAL SUPPLY TECHNICIAN overnight for agonal breathing Pt was intubated and bought to the ICU as per salesperson used cars, pt coded x2 w/ ROSC Upon placement of NG tube, pt was noted to have probable coffeegrounds pt currently on ventilator and on pressors ROS: 12 point ROS conducted, neg other than above Objective - Vital Signs/Intake and Output Vital Signs (last 24 hours): Temp Pulse Resp BP Pulse Ox 93.7 F L 94 H 33 H 94/77 L 80 L 01/07/18 08:08 01/07/18 08:08 01/07/18 08:04 01/07/18 07:00 01/07/18 07:30 Intake and Output: 01/07/18 01/07/18 06:59 18:59 Intake Total 2540 Output Total 200 Balance 2340 - Medications Medications: Current Medications Albuterol/Ipratropium (Duoneb 3 Mg/0.5 Mg (3 Ml) Ud) 3 ml IH Q2H PRN PRN Reason: Shortness of Breath Last Admin: 01/03/18 08:35 Dose: 3 ml Alprazolam (Xanax) 0.25 mg PO BID [facility] PRN Reason: Protocol Stop: 01/10/18 10:01 Last Admin: 01/06/18 18:50 Dose: Not Given Amlodipine Besylate (Norvasc) 5 mg PO DAILY [facility] Last Admin: 01/06/18 09:34 Dose: Not Given Atorvastatin Calcium (Lipitor) 20 mg PO HS [facility] Last Admin: 01/06/18 22:58 Dose: Not Given Budesonide (Pulmicort Respules) 0.5 mg IH [id number] [facility] Last Admin: 01/07/18 08:01 Dose: 0.5 mg Docusate Sodium (Colace) 100 mg PO BID [facility] Last Admin: 01/06/18 18:02 Dose: Not Given Doxycycline Hyclate (Doryx) 100 mg PO Q12 [facility] PRN Reason: Protocol Last Admin: 01/06/18 22:59 Dose: Not Given Fluticasone Propionate (Flonase) 1 actuation NS DAILY [facility] Last Admin: 01/06/18 09:34 Dose: Not Given Pantoprazole Sodium (Protonix 40mg Ivpb) 40 mg in 100 mls @ 20 mls/hr IVPB .Q5H [facility] Last Admin: 01/07/18 09:21 Dose: 20 mls/hr Sodium Bicarbonate 100 meq/ (Dextrose/Sodium Chloride) 1,100 mls @ 100 mls/hr IV .Q11H [facility] Last Admin: 01/07/18 04:18 Dose: 100 mls/hr Dopamine HCl/Dextrose (Dopamine 400mg/250ml D5w) 400 mg in 250 mls @ 10.206 mls /hr IV .Q24H PRN; Protocol; 5 MCG/KG/MIN PRN Reason: TITRATE PER MD ORDER Last Titration: 01/07/18 01:50 Dose: 10 mcg/kg/min, 20.412 mls/hr NOREPINEPHRINE BIT/0.9 % NACL (Levophed 4 Mg/ 250 Ml Ns Premixed) 4 mg in 250 mls @ 15 mls/hr IV .[id number] PRN; Protocol; 4 MCG/MIN PRN Reason: TITRATE PER MD ORDER Last Titration: 01/07/18 05:00 Dose: 12 mcg/min, 45 mls/hr Meropenem 500 mg/ Sodium (Chloride) 50 mls @ 100 mls/hr IVPB Q12 [facility] PRN Reason: Protocol Stop: 01/14/18 08:31 Last Admin: 01/07/18 11:30 Dose: 100 mls/hr Fentanyl Citrate (Fentanyl Citrate/Sodium Chloride 1 Mg/100 Ml) 1,000 mcg in 100 mls @ 2 mls/hr IV .Q24H PRN; Protocol; 20 MCG/HR PRN Reason: TITRATE PER MD ORDER Last Admin: 01/07/18 10:30 Dose: 20 mcg/hr, 2 mls/hr Isosorbide Mononitrate (Imdur) 30 mg PO DAILY [facility] Levalbuterol HCl (Xopenex) 1.25 mg IH [id number] [facility] Last Admin: 01/07/18 08:02 Dose: 1.25 mg Metoprolol Tartrate (Lopressor) 2.5 mg IV Q8H [facility] Ondansetron HCl (Zofran Inj) 4 mg IVP Q8 PRN PRN Reason: Nausea/Vomiting Last Admin: 01/06/18 14:31 Dose: 4 mg Pantoprazole Sodium (Protonix Inj) 40 mg IVP DAILY [facility] Primidone (Mysoline) 50 mg PO DAILY [facility] Last Admin: 01/06/18 09:34 Dose: 50 mg Ramipril (Altace) 2.5 mg PO DAILY [facility] - Labs Labs: 01/07/18 09:30 01/07/18 10:00 PT 22.9 SECONDS (9.4-12.5) H 01/07/18 01:05 INR 1.98 01/07/18 01:05 APTT 29.5 Seconds (25.1-36.5) 01/07/18 01:05 - Constitutional Appears: No Acute Distress - Eye Exam Eye Exam: Normal appearance Pupil Exam: NORMAL ACCOMODATION - ENT Exam ENT Exam: Mucous Membranes Moist - Neck Exam Neck Exam: Normal Inspection - Respiratory Exam Respiratory Exam: Clear to Ausculation Bilateral, NORMAL BREATHING PATTERN. absent: Rales, Rhonchi, Wheezes, Respiratory Distress - Cardiovascular Exam Cardiovascular Exam: REGULAR RHYTHM, +S1, +S2 - GI/Abdominal Exam GI & Abdominal Exam: Soft, Normal Bowel Sounds. absent: Firm, Guarding, Rigid, Tenderness, Organomegaly - Rectal Exam Rectal Exam: NORMAL INSPECTION. 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 MEDICAL SUPPLY TECHNICIAN overnight noted, pt intubated and in ICU. Coffee-grounds Anemia Abd pain Chest pain ACS Hypotension 2/2 cardiogenic shock? Plan: -repeat hgb 9.9, but as per ICU it was drawn while active transfusion -no reports of BRBPR, melena -NG lavage + for coffee-grounds but no BRB -continue protonix drip at 8mg/min -pt is on 20mcg of levophed , BP still low -may need additional vasopressors, as per ICU -transfuse to hgb >9 -maintain central line -pt not stable for EGD at this time -if pt rebleed, recommend stat IR consult, and please call us D/W Dr. Owusu
[2018-01-07 11:52] LABS: BAND 6 % (0-2); LYMPHOCYTE 8 % (22.0-35.0); MONOCYTE 2 % (1.0-6.0); NEUTROPHIL 84 % (50.0-70.0)
[2018-01-07 11:53] LABS: PLATELET ESTIMATE LOW (NORMAL); POIKILOCYTOSIS SLIGHT
[2018-01-07 11:54] LABS: ANISOCYTOSIS SLIGHT; OVALOCYTES SLIGHT; POLYCHROMASIA SLIGHT; TEAR DROP CELLS 1+
[2018-01-07 11:55] LABS: ACANTHROCYTES 2+
[2018-01-07] MEDS ORDERED: Midazolam 2 MG/2 ML VIAL IVP ONE (11:59)
--- NOTE | 2018-01-07 12:27 | CARD ---
APPROVED REPORT Date of service: 01/07/2018 EKG Measurement Heart [id number] 312P [id number] <Conclusion> Atrial Fibrillation Abnormal ECG
[2018-01-07 13:12] LABS: VENOUS BLOOD GAS BASE EXCESS -21.7 mmol/L (0.0-2.0); VENOUS BLOOD GAS PO2 56 mm/Hg (30-55)
[2018-01-07 13:15] LABS: VENOUS BLOOD PH 7.02 (7.32-7.43)
--- NOTE | 2018-01-07 13:20 | RAD ---
Date of service: 01/07/2018 HISTORY: pneumonia, central line, pneumothorax COMPARISON: Comparison chest 01/07/2018 at 04:20 7 hours FINDINGS: In situ ETT, tip of which lies approximately 3.5 cm above stacie. Right IJ central line with tip in the SVC. In situ NGT, tip of which has not been included on this film though distal aspect does lie well below EG junction. LUNGS: Mild opacification right lower lung field likely representing some combination of atelectasis and or infiltrate with effusion. Hazy appearance left lung could represent developing interstitial infiltrates PLEURA: No significant pleural effusion identified, no pneumothorax apparent. CARDIOVASCULAR: Heart size unchanged OSSEOUS STRUCTURES: No significant abnormalities. VISUALIZED UPPER ABDOMEN: Normal. OTHER FINDINGS: None. IMPRESSION: Support lines and tubes as above. Re- demonstrated is mildright lower lung field likely representing some combination of atelectasis and or infiltrate with effusion. Hazy appearance left lung could represent developing interstitial infiltrates
[2018-01-07 13:32] LABS: ALB/GLOB RATIO 1.1 (1.1-1.8); ALBUMIN 2.9 g/dL (3.0-4.8); CALCIUM 8.2 mg/dL (8.4-10.5)
[2018-01-07 13:57] LABS: TROPONIN I 0.72 ng/mL
[2018-01-07 14:08] LABS: ARTERIAL BLOOD GAS HEMOGLOBIN 9.6 g/dL (11.7-17.4); ARTERIAL BLOOD GAS O2 CAPACITY 13.7 mL/dl (16-24); ARTERIAL BLOOD GAS O2 CONTENT 13.8 ML/dl (15-23); ARTERIAL BLOOD GAS O2 SAT 100.6 % (95-98); ARTERIAL BLOOD GAS TCO2 6.4 mmol.L (22-28)
[2018-01-07 14:13] LABS: ARTERIAL BLOOD GAS HCO3 5.8 mmol/L (21-28); ARTERIAL BLOOD GAS PCO2 19 mm/Hg (35-45); ARTERIAL BLOOD GAS PH 7.09 (7.35-7.45)
--- NOTE | 2018-01-07 14:33 | CP.CCUPN ---
<TristaIvory shahlisandra - Last Filed: 01/07/18 14:17> CCU Subjective - Physician Review Events Since Last Encounter (Free Text): Koko Espinosa, PGY-1 ICU Progress Note Patient seen and examined at bedside. 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 Currently on levophed and dopamine with continued low blood pressure. ABG reveales pH of 7.09, PCO2 19, PO2 245 and HCO3 5.8 despite several hours of bicarb drip. 2 additional amps of bicarb given at 14:30. Sedated and intubated. Prognosis is guarded. CCU Objective - Vital Signs / Intake & Output Intake and Output (Last 8hrs): Intake & Output 01/06/18 01/07/18 01/07/18 22:59 06:59 14:59 Intake Total 0 2540 Output Total 200 Balance -200 2540 Intake: IV 2540 Right Antecubital 80 Right Forearm 2000 Right Internal Jugular 300 Oral 0 Output: Urine 200 Urine, Voided 200 Other: # Bowel Movements 0 - Physical Exam Physical Exam Limitations: Positive for: Other (intubated, sedated) Head: Positive for: Atraumatic, Normocephalic Pupils: Positive for: PERRL Conjunctiva: Positive for: Normal Mouth: Positive for: Dry Nose (Internal): Positive for: Normal Inspection Neck: Positive for: Trachea Midline Respiratory/Chest: Positive for: Clear to Auscultation, Good Air Exchange, Tachypneic. Negative for: Respiratory Distress, Accessory Muscle Use Cardiovascular: Positive for: Normal S1, S2, Peripheal Pulses Present, Tachycardic. Negative for: Murmurs Abdomen: Negative for: Tenderness, Distention, Peritoneal Signs Back: Positive for: Normal Inspection Upper Extremity: Positive for: Normal Inspection. Negative for: Cyanosis, Edema Lower Extremity: Positive for: Normal Inspection. Negative for: Edema Neurological: Positive for: Other (sedated, intubated) Skin: Positive for: Dry, Pale. Negative for: Rashes Psychiatric: Positive for: Other (sedated, intubated) - Medications Active Medications: Active Medications Generic Name Dose Route Start Last Admin Trade Name Freq PRN Reason Stop Dose Admin Albuterol/Ipratropium 3 ml 01/03/18 08:27 01/03/18 08:35 Duoneb 3 Mg/0.5 Mg (3 Ml) Ud IH 3 ml Q2H PRN Administration Shortness of Breath Alprazolam 0.25 mg 01/03/18 10:00 01/06/18 18:50 Xanax PO 01/10/18 10:01 Not Given BID MULUGETA Protocol Amlodipine Besylate 5 mg 01/03/18 10:00 01/06/18 09:34 Norvasc PO Not Given DAILY MULUGETA Atorvastatin Calcium 20 mg 01/02/18 22:30 01/06/18 22:58 Lipitor PO Not Given HS MULUGETA Budesonide 0.5 mg 01/03/18 20:00 01/07/18 08:01 Pulmicort Respules IH 0.5 mg [id number] MULUGETA Administration Docusate Sodium 100 mg 01/02/18 22:30 01/06/18 18:02 Colace PO Not Given BID MULUGETA Doxycycline Hyclate 100 mg 01/03/18 22:00 01/06/18 22:59 Doryx PO Not Given Q12 MULUGETA Protocol Fluticasone Propionate 1 actuation 01/03/18 10:00 01/06/18 09:34 Flonase NS Not Given DAILY MULUGETA Pantoprazole Sodium 40 mg in 100 mls @ 20 mls/hr 01/07/18 01:30 01/07/18 09: 21 Protonix 40mg Ivpb IVPB 20 mls/hr .Q5H MULUGETA Administration Sodium Bicarbonate 100 meq/ 1,100 mls @ 100 mls/hr 01/07/18 02:45 01/07/18 04 :18 Dextrose/Sodium Chloride IV 100 mls/hr .Q11H MULUGETA Administration Dopamine HCl/Dextrose 400 mg in 250 mls @ 10.206 mls/hr 01/07/18 01:40 01:50 Dopamine 400mg/250ml D5w IV 10 mcg/kg/min .Q24H PRN 20.412 mls/hr TITRATE PER MD ORDER Titration Protocol 5 MCG/KG/MIN NOREPINEPHRINE BIT/0.9 % NACL 4 mg in 250 mls @ 15 mls/hr 01/07/18 02:00 04/16 05:00 Levophed 4 Mg/ 250 Ml Ns Premixed IV 12 mcg/min .[id number] PRN 45 mls/hr TITRATE PER MD ORDER Titration Protocol 4 MCG/MIN Meropenem 500 mg/ Sodium 50 mls @ 100 mls/hr 01/07/18 08:30 01/07/18 11:30 Chloride IVPB 01/14/18 08:31 100 mls/hr Q12 MULUGETA Administration Protocol Fentanyl Citrate 1,000 mcg in 100 mls @ 2 mls/hr 01/07/18 09:25 01/07/18 10: 30 Fentanyl Citrate/Sodium Chloride 1 Mg/100 Ml IV 20 mcg/hr .Q24H PRN 2 mls/hr TITRATE PER MD ORDER Administration Protocol 20 MCG/HR Isosorbide Mononitrate 30 mg 01/07/18 10:00 Imdur PO DAILY MULUGETA Levalbuterol HCl 1.25 mg 01/06/18 08:00 01/07/18 08:02 Xopenex IH 1.25 mg [id number] MULUGETA Administration Metoprolol Tartrate 2.5 mg 01/07/18 10:00 Lopressor IV Q8H MULUGETA Ondansetron HCl 4 mg 01/03/18 10:46 01/06/18 14:31 Zofran Inj IVP 4 mg Q8 PRN Administration Nausea/Vomiting Pantoprazole Sodium 40 mg 01/07/18 10:00 Protonix Inj IVP DAILY MULUGETA Primidone 50 mg 01/03/18 10:00 01/06/18 09:34 Mysoline PO 50 mg DAILY MULUGETA Administration Ramipril 2.5 mg 01/05/18 10:00 Altace PO DAILY MULUGETA - Patient Studies Lab Studies: Microbiology Studies 01/03/18 17:13 Blood Culture - Preliminary Blood NO GROWTH AFTER 3 DAYS 01/03/18 17:13 Blood Culture - Preliminary Blood NO GROWTH AFTER 3 DAYS Lab Studies 01/07/18 01/07/18 01/07/18 Range/Units 14:05 13:00 13:00 WBC (4.5-11.0) 10^3/ul RBC (3.5-6.1) 10^6/uL Hgb (12.0-16.0) g/dL Hct (36.0-48.0) % MCV (80.0-105.0) fl MCH (25.0-35.0) pg MCHC (31.0-37.0) g/dl RDW (11.5-14.5) % Plt Count (120.0-450.0) 10^3/uL MPV (7.0-11.0) fl Gran % (50.0-68.0) % Lymph % (Auto) (22.0-35.0) % [place] % (Auto) (1.0-6.0) % Eos % (Auto) (1.5-5.0) % Baso % (Auto) (0.0-3.0) % Gran # (1.4-6.5) Lymph # (Auto) (1.2-3.4) [place] # (Auto) (0.1-0.6) Eos # (Auto) (0.0-0.7) Baso # (Auto) (0.0-2.0) K/mm3 Neutrophils % (Manual) (50.0-70.0) % Band Neutrophils % (0-2) % Lymphocytes % (Manual) (22.0-35.0) % Monocytes % (Manual) (1.0-6.0) % Platelet Evaluation (NORMAL) Polychromasia Poikilocytosis (manual Anisocytosis (manual) Tear Drop Cells Ovalocytes Acanthocytes (Spur) PT (9.4-12.5) SECONDS INR APTT (25.1-36.5) Seconds pCO2 19 L* (35-45) mm/Hg pO2 245.0 H 56 H (30-55) mm/Hg HCO3 5.8 L* (21-28) mmol/L ABG pH 7.09 L* (7.35-7.45) ABG Total CO2 6.4 L (22-28) mmol.L ABG O2 Saturation 100.6 H (95-98) % ABG O2 Content 13.8 L (15-23) ML/dl ABG Base Excess -22.2 L (-2.0-3.0) mmol/L ABG Hemoglobin 9.6 L (11.7-17.4) g/dL ABG Carboxyhemoglobin 1.7 H (0.5-1.5) % POC ABG HHb (Measured) -0.6 L (0-5) % ABG Methemoglobin 1.1 (0.0-3.0) % ABG O2 Capacity 13.7 L (16-24) mL/dl ABG Potassium (3.6-5.2) mmol/L VBG pH 7.02 L* (7.32-7.43) VBG pCO2 32.0 L (40-60) VBG HCO3 8.3 L (21-28) mmol/l VBG Total CO2 9.3 L (22-28) mmol.L VBG O2 Sat (Calc) 86.0 H (40-65) % VBG Base Excess -21.7 L (0.0-2.0) mmol/L VBG Potassium 6.8 H* (3.6-5.2) mmol/L Hgb O2 Saturation 97.8 (95.0-98.0) % Sodium 135.0 140 (132-148) mmol/L Chloride 104.0 105 (98-107) mmol/L Glucose 192 H (65-105) mg/dl Lactate 14.5 H* (0.7-2.1) mmol/L FiO2 100.0 21.0 % Potassium 6.8 H* (3.6-5.0) mmol/L Carbon Dioxide 8 L (21-33) mmol/L Anion Gap 34 H (10-20) BUN 50 H (7-21) mg/dL Creatinine 2.4 H (0.7-1.2) mg/dl Est GFR ( Amer) 23 Est GFR (Non-Af Amer) 19 Random Glucose 183 H (70-110) mg/dL Lactic Acid (0.7-2.1) mmol/L Calcium 8.2 L (8.4-10.5) mg/dL Phosphorus (2.5-4.5) mg/dL Magnesium (1.7-2.2) mg/dL Total Bilirubin 3.3 H (0.2-1.3) mg/dL AST (14-36) U/L ALT 3727 H (7-56) U/L Alkaline Phosphatase 168 H (38-126) U/L Lactate Dehydrogenase (333-699) U/L Total Creatine Kinase (35-230) U/L CK-MB (CK-2) (0.0-3.6) ng/mL CK-MB (CK-2) % (2.5-3.0) % Troponin I 0.72 H* D ng/mL NT-Pro-B Natriuret Pep (0-450) pg/mL Total Protein 5.5 L (5.8-8.3) g/dL Albumin 2.9 L (3.0-4.8) g/dL Globulin 2.6 gm/dL Albumin/Globulin Ratio 1.1 (1.1-1.8) Arterial Blood Potassium (3.6-5.2) mmol/L Venous Blood Potassium 6.8 H* (3.6-5.2) mmol/L Blood Type Antibody Screen Crossmatch BBK History Checked 01/07/18 01/07/18 01/07/18 Range/Units 10:00 10:00 09:30 WBC 21.3 H (4.5-11.0) 10^3/ul RBC 3.40 L (3.5-6.1) 10^6/uL Hgb 9.9 L D (12.0-16.0) g/dL Hct 32.5 L (36.0-48.0) % MCV 95.6 (80.0-105.0) fl MCH 29.1 (25.0-35.0) pg MCHC 30.5 L (31.0-37.0) g/dl RDW 15.4 H (11.5-14.5) % Plt Count 85 L (120.0-450.0) 10^3/uL MPV 12.1 H (7.0-11.0) fl Gran % 91.7 H (50.0-68.0) % Lymph % (Auto) 4.8 L (22.0-35.0) % [place] % (Auto) 3.5 (1.0-6.0) % Eos % (Auto) 0.0 L (1.5-5.0) % Baso % (Auto) 0.0 (0.0-3.0) % Gran # 19.55 H (1.4-6.5) Lymph # (Auto) 1.0 L (1.2-3.4) [place] # (Auto) 0.7 H (0.1-0.6) Eos # (Auto) 0.0 (0.0-0.7) Baso # (Auto) 0.01 (0.0-2.0) K/mm3 Neutrophils % (Manual) 84 H (50.0-70.0) % Band Neutrophils % 6 H (0-2) % Lymphocytes % (Manual) 8 L (22.0-35.0) % Monocytes % (Manual) 2 (1.0-6.0) % Platelet Evaluation Low (NORMAL) Polychromasia Slight Poikilocytosis (manual Slight Anisocytosis (manual) Slight Tear Drop Cells 1+ Ovalocytes Slight Acanthocytes (Spur) 2+ PT (9.4-12.5) SECONDS INR APTT (25.1-36.5) Seconds pCO2 (35-45) mm/Hg pO2 (30-55) mm/Hg HCO3 (21-28) mmol/L ABG pH (7.35-7.45) ABG Total CO2 (22-28) mmol.L ABG O2 Saturation (95-98) % ABG O2 Content (15-23) ML/dl ABG Base Excess (-2.0-3.0) mmol/L ABG Hemoglobin (11.7-17.4) g/dL ABG Carboxyhemoglobin (0.5-1.5) % POC ABG HHb (Measured) (0-5) % ABG Methemoglobin (0.0-3.0) % ABG O2 Capacity (16-24) mL/dl ABG Potassium (3.6-5.2) mmol/L VBG pH (7.32-7.43) VBG pCO2 (40-60) VBG HCO3 (21-28) mmol/l VBG Total CO2 (22-28) mmol.L VBG O2 Sat (Calc) (40-65) % VBG Base Excess (0.0-2.0) mmol/L VBG Potassium (3.6-5.2) mmol/L Hgb O2 Saturation (95.0-98.0) % Sodium 140 (132-148) mmol/L Chloride 104 (98-107) mmol/L Glucose (65-105) mg/dl Lactate (0.7-2.1) mmol/L FiO2 % Potassium 6.5 H* (3.6-5.0) mmol/L Carbon Dioxide 10 L (21-33) mmol/L Anion Gap 33 H (10-20) BUN 51 H (7-21) mg/dL Creatinine 2.3 H (0.7-1.2) mg/dl Est GFR ( Amer) 24 Est GFR (Non-Af Amer) 20 Random Glucose 132 H (70-110) mg/dL Lactic Acid 14.3 H* (0.7-2.1) mmol/L Calcium 8.3 L (8.4-10.5) mg/dL Phosphorus 10.8 H (2.5-4.5) mg/dL Magnesium 2.2 (1.7-2.2) mg/dL Total Bilirubin 3.4 H (0.2-1.3) mg/dL AST 24554 H (14-36) U/L ALT 3502 H (7-56) U/L Alkaline Phosphatase 177 H (38-126) U/L Lactate Dehydrogenase 04970 H (333-699) U/L Total Creatine Kinase 1219 H (35-230) U/L CK-MB (CK-2) 22.3 H (0.0-3.6) ng/mL CK-MB (CK-2) % 1.8 L (2.5-3.0) % Troponin I 0.57 H* D ng/mL NT-Pro-B Natriuret Pep (0-450) pg/mL Total Protein 5.6 L (5.8-8.3) g/dL Albumin 3.0 (3.0-4.8) g/dL Globulin 2.6 gm/dL Albumin/Globulin Ratio 1.1 (1.1-1.8) Arterial Blood Potassium (3.6-5.2) mmol/L Venous Blood Potassium (3.6-5.2) mmol/L Blood Type Antibody Screen Crossmatch BBK History Checked 01/07/18 01/07/18 01/07/18 Range/Units 08:25 06:00 06:00 WBC 22.4 H D (4.5-11.0) 10^3/ul RBC 2.65 L (3.5-6.1) 10^6/uL Hgb 7.8 L (12.0-16.0) g/dL Hct 25.4 L (36.0-48.0) % MCV 95.8 (80.0-105.0) fl MCH 29.4 (25.0-35.0) pg MCHC 30.7 L (31.0-37.0) g/dl RDW 15.0 H (11.5-14.5) % Plt Count 99 L (120.0-450.0) 10^3/uL MPV 12.0 H (7.0-11.0) fl Gran % 88.3 H (50.0-68.0) % Lymph % (Auto) 6.8 L (22.0-35.0) % [place] % (Auto) 4.8 (1.0-6.0) % Eos % (Auto) 0.0 L (1.5-5.0) % Baso % (Auto) 0.1 (0.0-3.0) % Gran # 19.79 H (1.4-6.5) Lymph # (Auto) 1.5 (1.2-3.4) [place] # (Auto) 1.1 H (0.1-0.6) Eos # (Auto) 0.0 (0.0-0.7) Baso # (Auto) 0.02 (0.0-2.0) K/mm3 Neutrophils % (Manual) (50.0-70.0) % Band Neutrophils % (0-2) % Lymphocytes % (Manual) (22.0-35.0) % Monocytes % (Manual) (1.0-6.0) % Platelet Evaluation (NORMAL) Polychromasia Poikilocytosis (manual Anisocytosis (manual) Tear Drop Cells Ovalocytes Acanthocytes (Spur) PT (9.4-12.5) SECONDS INR APTT (25.1-36.5) Seconds pCO2 23 L (35-45) mm/Hg pO2 186.0 H 65 H (30-55) mm/Hg HCO3 7.8 L* (21-28) mmol/L ABG pH 7.14 L* (7.35-7.45) ABG Total CO2 8.5 L (22-28) mmol.L ABG O2 Saturation 100.7 H (95-98) % ABG O2 Content (15-23) ML/dl ABG Base Excess -19.5 L (-2.0-3.0) mmol/L ABG Hemoglobin (11.7-17.4) g/dL ABG Carboxyhemoglobin (0.5-1.5) % POC ABG HHb (Measured) (0-5) % ABG Methemoglobin (0.0-3.0) % ABG O2 Capacity (16-24) mL/dl ABG Potassium 5.7 H (3.6-5.2) mmol/L VBG pH 7.08 L* (7.32-7.43) VBG pCO2 34.0 L (40-60) VBG HCO3 10.1 L (21-28) mmol/l VBG Total CO2 11.1 L (22-28) mmol.L VBG O2 Sat (Calc) 93.8 H (40-65) % VBG Base Excess -18.9 L (0.0-2.0) mmol/L VBG Potassium 5.6 H (3.6-5.2) mmol/L Hgb O2 Saturation (95.0-98.0) % Sodium 136.0 136.0 (132-148) mmol/L Chloride 104.0 105.0 (98-107) mmol/L Glucose 168 H 173 H (65-105) mg/dl Lactate 14.6 H* 15.2 H* (0.7-2.1) mmol/L FiO2 100.0 21.0 % Potassium (3.6-5.0) mmol/L Carbon Dioxide (21-33) mmol/L Anion Gap (10-20) BUN (7-21) mg/dL Creatinine (0.7-1.2) mg/dl Est GFR ( Amer) Est GFR (Non-Af Amer) Random Glucose (70-110) mg/dL Lactic Acid (0.7-2.1) mmol/L Calcium (8.4-10.5) mg/dL Phosphorus (2.5-4.5) mg/dL Magnesium (1.7-2.2) mg/dL Total Bilirubin (0.2-1.3) mg/dL AST (14-36) U/L ALT (7-56) U/L Alkaline Phosphatase (38-126) U/L Lactate Dehydrogenase (333-699) U/L Total Creatine Kinase (35-230) U/L CK-MB (CK-2) (0.0-3.6) ng/mL CK-MB (CK-2) % (2.5-3.0) % Troponin I ng/mL NT-Pro-B Natriuret Pep (0-450) pg/mL Total Protein (5.8-8.3) g/dL Albumin (3.0-4.8) g/dL Globulin gm/dL Albumin/Globulin Ratio (1.1-1.8) Arterial Blood Potassium 5.7 H (3.6-5.2) mmol/L Venous Blood Potassium 5.6 H (3.6-5.2) mmol/L Blood Type Antibody Screen Crossmatch BBK History Checked 01/07/18 01/07/18 01/07/18 Range/Units 06:00 01:05 01:05 WBC (4.5-11.0) 10^3/ul RBC (3.5-6.1) 10^6/uL Hgb (12.0-16.0) g/dL Hct (36.0-48.0) % MCV (80.0-105.0) fl MCH (25.0-35.0) pg MCHC (31.0-37.0) g/dl RDW (11.5-14.5) % Plt Count (120.0-450.0) 10^3/uL MPV (7.0-11.0) fl Gran % (50.0-68.0) % Lymph % (Auto) (22.0-35.0) % [place] % (Auto) (1.0-6.0) % Eos % (Auto) (1.5-5.0) % Baso % (Auto) (0.0-3.0) % Gran # (1.4-6.5) Lymph # (Auto) (1.2-3.4) [place] # (Auto) (0.1-0.6) Eos # (Auto) (0.0-0.7) Baso # (Auto) (0.0-2.0) K/mm3 Neutrophils % (Manual) (50.0-70.0) % Band Neutrophils % (0-2) % Lymphocytes % (Manual) (22.0-35.0) % Monocytes % (Manual) (1.0-6.0) % Platelet Evaluation (NORMAL) Polychromasia Poikilocytosis (manual Anisocytosis (manual) Tear Drop Cells Ovalocytes Acanthocytes (Spur) PT 22.9 H (9.4-12.5) SECONDS INR 1.98 APTT 29.5 (25.1-36.5) Seconds pCO2 (35-45) mm/Hg pO2 (30-55) mm/Hg HCO3 (21-28) mmol/L ABG pH (7.35-7.45) ABG Total CO2 (22-28) mmol.L ABG O2 Saturation (95-98) % ABG O2 Content (15-23) ML/dl ABG Base Excess (-2.0-3.0) mmol/L ABG Hemoglobin (11.7-17.4) g/dL ABG Carboxyhemoglobin (0.5-1.5) % POC ABG HHb (Measured) (0-5) % ABG Methemoglobin (0.0-3.0) % ABG O2 Capacity (16-24) mL/dl ABG Potassium (3.6-5.2) mmol/L VBG pH (7.32-7.43) VBG pCO2 (40-60) VBG HCO3 (21-28) mmol/l VBG Total CO2 (22-28) mmol.L VBG O2 Sat (Calc) (40-65) % VBG Base Excess (0.0-2.0) mmol/L VBG Potassium (3.6-5.2) mmol/L Hgb O2 Saturation (95.0-98.0) % Sodium 139 (132-148) mmol/L Chloride 104 (98-107) mmol/L Glucose (65-105) mg/dl Lactate (0.7-2.1) mmol/L FiO2 % Potassium 5.6 H* (3.6-5.0) mmol/L Carbon Dioxide 11 L (21-33) mmol/L Anion Gap 30 H (10-20) BUN 52 H (7-21) mg/dL Creatinine 2.0 H (0.7-1.2) mg/dl Est GFR ( Amer) 29 Est GFR (Non-Af Amer) 24 Random Glucose 167 H (70-110) mg/dL Lactic Acid (0.7-2.1) mmol/L Calcium 8.4 (8.4-10.5) mg/dL Phosphorus (2.5-4.5) mg/dL Magnesium (1.7-2.2) mg/dL Total Bilirubin (0.2-1.3) mg/dL AST (14-36) U/L ALT (7-56) U/L Alkaline Phosphatase (38-126) U/L Lactate Dehydrogenase (333-699) U/L Total Creatine Kinase (35-230) U/L CK-MB (CK-2) (0.0-3.6) ng/mL CK-MB (CK-2) % (2.5-3.0) % Troponin I ng/mL NT-Pro-B Natriuret Pep 60317 H (0-450) pg/mL Total Protein (5.8-8.3) g/dL Albumin (3.0-4.8) g/dL Globulin gm/dL Albumin/Globulin Ratio (1.1-1.8) Arterial Blood Potassium (3.6-5.2) mmol/L Venous Blood Potassium (3.6-5.2) mmol/L Blood Type O POSITIVE Antibody Screen Negative Crossmatch See Detail BBK History Checked Patient has bt 01/07/18 01/07/18 01/07/18 Range/Units 01:05 01:05 01:05 WBC (4.5-11.0) 10^3/ul RBC (3.5-6.1) 10^6/uL Hgb (12.0-16.0) g/dL Hct (36.0-48.0) % MCV (80.0-105.0) fl MCH (25.0-35.0) pg MCHC (31.0-37.0) g/dl RDW (11.5-14.5) % Plt Count (120.0-450.0) 10^3/uL MPV (7.0-11.0) fl Gran % (50.0-68.0) % Lymph % (Auto) (22.0-35.0) % [place] % (Auto) (1.0-6.0) % Eos % (Auto) (1.5-5.0) % Baso % (Auto) (0.0-3.0) % Gran # (1.4-6.5) Lymph # (Auto) (1.2-3.4) [place] # (Auto) (0.1-0.6) Eos # (Auto) (0.0-0.7) Baso # (Auto) (0.0-2.0) K/mm3 Neutrophils % (Manual) (50.0-70.0) % Band Neutrophils % (0-2) % Lymphocytes % (Manual) (22.0-35.0) % Monocytes % (Manual) (1.0-6.0) % Platelet Evaluation (NORMAL) Polychromasia Poikilocytosis (manual Anisocytosis (manual) Tear Drop Cells Ovalocytes Acanthocytes (Spur) PT (9.4-12.5) SECONDS INR APTT (25.1-36.5) Seconds pCO2 (35-45) mm/Hg pO2 36 (30-55) mm/Hg HCO3 (21-28) mmol/L ABG pH (7.35-7.45) ABG Total CO2 (22-28) mmol.L ABG O2 Saturation (95-98) % ABG O2 Content (15-23) ML/dl ABG Base Excess (-2.0-3.0) mmol/L ABG Hemoglobin (11.7-17.4) g/dL ABG Carboxyhemoglobin (0.5-1.5) % POC ABG HHb (Measured) (0-5) % ABG Methemoglobin (0.0-3.0) % ABG O2 Capacity (16-24) mL/dl ABG Potassium (3.6-5.2) mmol/L VBG pH 6.93 L* (7.32-7.43) VBG pCO2 43.0 (40-60) VBG HCO3 9.0 L (21-28) mmol/l VBG Total CO2 10.3 L (22-28) mmol.L VBG O2 Sat (Calc) 45.4 (40-65) % VBG Base Excess -23.1 L (0.0-2.0) mmol/L VBG Potassium 7.1 H* (3.6-5.2) mmol/L Hgb O2 Saturation (95.0-98.0) % Sodium 132.0 136 (132-148) mmol/L Chloride 101.0 100 (98-107) mmol/L Glucose 164 H (65-105) mg/dl Lactate 14.5 H* (0.7-2.1) mmol/L FiO2 21.0 % Potassium 7.0 H* D (3.6-5.0) mmol/L Carbon Dioxide 10 L D (21-33) mmol/L Anion Gap 32 H (10-20) BUN 54 H (7-21) mg/dL Creatinine 2.0 H (0.7-1.2) mg/dl Est GFR ( Amer) 29 Est GFR (Non-Af Amer) 24 Random Glucose 154 H (70-110) mg/dL Lactic Acid (0.7-2.1) mmol/L Calcium 8.0 L (8.4-10.5) mg/dL Phosphorus 11.4 H (2.5-4.5) mg/dL Magnesium 2.5 H (1.7-2.2) mg/dL Total Bilirubin 2.5 H (0.2-1.3) mg/dL AST 7172 H (14-36) U/L ALT 2341 H (7-56) U/L Alkaline Phosphatase 156 H (38-126) U/L Lactate Dehydrogenase (333-699) U/L Total Creatine Kinase (35-230) U/L CK-MB (CK-2) (0.0-3.6) ng/mL CK-MB (CK-2) % (2.5-3.0) % Troponin I 0.30 H* D ng/mL NT-Pro-B Natriuret Pep (0-450) pg/mL Total Protein 5.8 (5.8-8.3) g/dL Albumin 3.1 (3.0-4.8) g/dL Globulin 2.7 gm/dL Albumin/Globulin Ratio 1.1 (1.1-1.8) Arterial Blood Potassium (3.6-5.2) mmol/L Venous Blood Potassium 7.1 H* (3.6-5.2) mmol/L Blood Type Antibody Screen Crossmatch BBK History Checked 01/07/18 01/06/18 Range/Units 01:05 19:45 WBC 15.6 H 16.7 H D (4.5-11.0) 10^3/ul RBC 3.06 L 3.57 (3.5-6.1) 10^6/uL Hgb 8.9 L 10.4 L (12.0-16.0) g/dL Hct 29.5 L 32.2 L (36.0-48.0) % MCV 96.4 D 90.2 (80.0-105.0) fl MCH 29.1 29.1 (25.0-35.0) pg MCHC 30.2 L 32.3 (31.0-37.0) g/dl RDW 15.0 H 14.9 H (11.5-14.5) % Plt Count 133 173 (120.0-450.0) 10^3/uL MPV 12.2 H 11.7 H (7.0-11.0) fl Gran % 73.8 H (50.0-68.0) % Lymph % (Auto) 10.2 L (22.0-35.0) % [place] % (Auto) 15.9 H (1.0-6.0) % Eos % (Auto) 0.0 L (1.5-5.0) % Baso % (Auto) 0.1 (0.0-3.0) % Gran # 11.53 H (1.4-6.5) Lymph # (Auto) 1.6 (1.2-3.4) [place] # (Auto) 2.5 H (0.1-0.6) Eos # (Auto) 0.0 (0.0-0.7) Baso # (Auto) 0.01 (0.0-2.0) K/mm3 Neutrophils % (Manual) (50.0-70.0) % Band Neutrophils % (0-2) % Lymphocytes % (Manual) (22.0-35.0) % Monocytes % (Manual) (1.0-6.0) % Platelet Evaluation (NORMAL) Polychromasia Poikilocytosis (manual Anisocytosis (manual) Tear Drop Cells Ovalocytes Acanthocytes (Spur) PT (9.4-12.5) SECONDS INR APTT (25.1-36.5) Seconds pCO2 (35-45) mm/Hg pO2 (30-55) mm/Hg HCO3 (21-28) mmol/L ABG pH (7.35-7.45) ABG Total CO2 (22-28) mmol.L ABG O2 Saturation (95-98) % ABG O2 Content (15-23) ML/dl ABG Base Excess (-2.0-3.0) mmol/L ABG Hemoglobin (11.7-17.4) g/dL ABG Carboxyhemoglobin (0.5-1.5) % POC ABG HHb (Measured) (0-5) % ABG Methemoglobin (0.0-3.0) % ABG O2 Capacity (16-24) mL/dl ABG Potassium (3.6-5.2) mmol/L VBG pH (7.32-7.43) VBG pCO2 (40-60) VBG HCO3 (21-28) mmol/l VBG Total CO2 (22-28) mmol.L VBG O2 Sat (Calc) (40-65) % VBG Base Excess (0.0-2.0) mmol/L VBG Potassium (3.6-5.2) mmol/L Hgb O2 Saturation (95.0-98.0) % Sodium (132-148) mmol/L Chloride (98-107) mmol/L Glucose (65-105) mg/dl Lactate (0.7-2.1) mmol/L FiO2 % Potassium (3.6-5.0) mmol/L Carbon Dioxide (21-33) mmol/L Anion Gap (10-20) BUN (7-21) mg/dL Creatinine (0.7-1.2) mg/dl Est GFR ( Amer) Est GFR (Non-Af Amer) Random Glucose (70-110) mg/dL Lactic Acid (0.7-2.1) mmol/L Calcium (8.4-10.5) mg/dL Phosphorus (2.5-4.5) mg/dL Magnesium (1.7-2.2) mg/dL Total Bilirubin (0.2-1.3) mg/dL AST (14-36) U/L ALT (7-56) U/L Alkaline Phosphatase (38-126) U/L Lactate Dehydrogenase (333-699) U/L Total Creatine Kinase (35-230) U/L CK-MB (CK-2) (0.0-3.6) ng/mL CK-MB (CK-2) % (2.5-3.0) % Troponin I ng/mL NT-Pro-B Natriuret Pep (0-450) pg/mL Total Protein (5.8-8.3) g/dL Albumin (3.0-4.8) g/dL Globulin gm/dL Albumin/Globulin Ratio (1.1-1.8) Arterial Blood Potassium (3.6-5.2) mmol/L Venous Blood Potassium (3.6-5.2) mmol/L Blood Type Antibody Screen Crossmatch BBK History Checked Laboratory Results - last 24 hr 01/06/18 01/07/18 01/07/18 19:45 01:05 01:05 WBC 16.7 H D 15.6 H RBC 3.57 3.06 L Hgb 10.4 L 8.9 L Hct 32.2 L 29.5 L MCV 90.2 96.4 D MCH 29.1 29.1 MCHC 32.3 30.2 L RDW 14.9 H 15.0 H Plt Count 173 133 MPV 11.7 H 12.2 H Gran % 73.8 H Lymph % (Auto) 10.2 L [place] % (Auto) 15.9 H Eos % (Auto) 0.0 L Baso % (Auto) 0.1 Gran # 11.53 H Lymph # (Auto) 1.6 [place] # (Auto) 2.5 H Eos # (Auto) 0.0 Baso # (Auto) 0.01 Neutrophils % (Manual) Band Neutrophils % Lymphocytes % (Manual) Monocytes % (Manual) Platelet Evaluation Polychromasia Poikilocytosis (manual Anisocytosis (manual) Tear Drop Cells Ovalocytes Acanthocytes (Spur) PT INR APTT pCO2 pO2 HCO3 ABG pH ABG Total CO2 ABG O2 Saturation ABG O2 Content ABG Base Excess ABG Hemoglobin ABG Carboxyhemoglobin POC ABG HHb (Measured) ABG Methemoglobin ABG O2 Capacity ABG Potassium VBG pH VBG pCO2 VBG HCO3 VBG Total CO2 VBG O2 Sat (Calc) VBG Base Excess VBG Potassium Hgb O2 Saturation Sodium 136 Chloride 100 Glucose Lactate FiO2 Potassium 7.0 H* D Carbon Dioxide 10 L D Anion Gap 32 H BUN 54 H Creatinine 2.0 H Est GFR ( Amer) 29 Est GFR (Non-Af Amer) 24 Random Glucose 154 H Lactic Acid Calcium 8.0 L Phosphorus Magnesium Total Bilirubin 2.5 H AST 7172 H ALT 2341 H Alkaline Phosphatase 156 H Lactate Dehydrogenase Total Creatine Kinase CK-MB (CK-2) CK-MB (CK-2) % Troponin I 0.30 H* D NT-Pro-B Natriuret Pep Total Protein 5.8 Albumin 3.1 Globulin 2.7 Albumin/Globulin Ratio 1.1 Arterial Blood Potassium Venous Blood Potassium Blood Type Antibody Screen Crossmatch BBK History Checked 01/07/18 01/07/18 01/07/18 01:05 01:05 01:05 WBC RBC Hgb Hct MCV MCH MCHC RDW Plt Count MPV Gran % Lymph % (Auto) [place] % (Auto) Eos % (Auto) Baso % (Auto) Gran # Lymph # (Auto) [place] # (Auto) Eos # (Auto) Baso # (Auto) Neutrophils % (Manual) Band Neutrophils % Lymphocytes % (Manual) Monocytes % (Manual) Platelet Evaluation Polychromasia Poikilocytosis (manual Anisocytosis (manual) Tear Drop Cells Ovalocytes Acanthocytes (Spur) PT 22.9 H INR 1.98 APTT 29.5 pCO2 pO2 36 HCO3 ABG pH ABG Total CO2 ABG O2 Saturation ABG O2 Content ABG Base Excess ABG Hemoglobin ABG Carboxyhemoglobin POC ABG HHb (Measured) ABG Methemoglobin ABG O2 Capacity ABG Potassium VBG pH 6.93 L* VBG pCO2 43.0 VBG HCO3 9.0 L VBG Total CO2 10.3 L VBG O2 Sat (Calc) 45.4 VBG Base Excess -23.1 L VBG Potassium 7.1 H* Hgb O2 Saturation Sodium 132.0 Chloride 101.0 Glucose 164 H Lactate 14.5 H* FiO2 21.0 Potassium Carbon Dioxide Anion Gap BUN Creatinine Est GFR ( Amer) Est GFR (Non-Af Amer) Random Glucose Lactic Acid Calcium Phosphorus 11.4 H Magnesium 2.5 H Total Bilirubin AST ALT Alkaline Phosphatase Lactate Dehydrogenase Total Creatine Kinase CK-MB (CK-2) CK-MB (CK-2) % Troponin I NT-Pro-B Natriuret Pep Total Protein Albumin Globulin Albumin/Globulin Ratio Arterial Blood Potassium Venous Blood Potassium 7.1 H* Blood Type Antibody Screen Crossmatch BBK History Checked 01/07/18 01/07/18 01/07/18 01:05 06:00 06:00 WBC RBC Hgb Hct MCV MCH MCHC RDW Plt Count MPV Gran % Lymph % (Auto) [place] % (Auto) Eos % (Auto) Baso % (Auto) Gran # Lymph # (Auto) [place] # (Auto) Eos # (Auto) Baso # (Auto) Neutrophils % (Manual) Band Neutrophils % Lymphocytes % (Manual) Monocytes % (Manual) Platelet Evaluation Polychromasia Poikilocytosis (manual Anisocytosis (manual) Tear Drop Cells Ovalocytes Acanthocytes (Spur) PT INR APTT pCO2 pO2 65 H HCO3 ABG pH ABG Total CO2 ABG O2 Saturation ABG O2 Content ABG Base Excess ABG Hemoglobin ABG Carboxyhemoglobin POC ABG HHb (Measured) ABG Methemoglobin ABG O2 Capacity ABG Potassium VBG pH 7.08 L* VBG pCO2 34.0 L VBG HCO3 10.1 L VBG Total CO2 11.1 L VBG O2 Sat (Calc) 93.8 H VBG Base Excess -18.9 L VBG Potassium 5.6 H Hgb O2 Saturation Sodium 139 136.0 Chloride 104 105.0 Glucose 173 H Lactate 15.2 H* FiO2 21.0 Potassium 5.6 H* Carbon Dioxide 11 L Anion Gap 30 H BUN 52 H Creatinine 2.0 H Est GFR ( Amer) 29 Est GFR (Non-Af Amer) 24 Random Glucose 167 H Lactic Acid Calcium 8.4 Phosphorus Magnesium Total Bilirubin AST ALT Alkaline Phosphatase Lactate Dehydrogenase Total Creatine Kinase CK-MB (CK-2) CK-MB (CK-2) % Troponin I NT-Pro-B Natriuret Pep 48024 H Total Protein Albumin Globulin Albumin/Globulin Ratio Arterial Blood Potassium Venous Blood Potassium 5.6 H Blood Type O POSITIVE Antibody Screen Negative Crossmatch See Detail BBK History Checked Patient has bt 01/07/18 01/07/18 01/07/18 06:00 08:25 09:30 WBC 22.4 H D 21.3 H RBC 2.65 L 3.40 L Hgb 7.8 L 9.9 L D Hct 25.4 L 32.5 L MCV 95.8 95.6 MCH 29.4 29.1 MCHC 30.7 L 30.5 L RDW 15.0 H 15.4 H Plt Count 99 L 85 L MPV 12.0 H 12.1 H Gran % 88.3 H 91.7 H Lymph % (Auto) 6.8 L 4.8 L [place] % (Auto) 4.8 3.5 Eos % (Auto) 0.0 L 0.0 L Baso % (Auto) 0.1 0.0 Gran # 19.79 H 19.55 H Lymph # (Auto) 1.5 1.0 L [place] # (Auto) 1.1 H 0.7 H Eos # (Auto) 0.0 0.0 Baso # (Auto) 0.02 0.01 Neutrophils % (Manual) 84 H Band Neutrophils % 6 H Lymphocytes % (Manual) 8 L Monocytes % (Manual) 2 Platelet Evaluation Low Polychromasia Slight Poikilocytosis (manual Slight Anisocytosis (manual) Slight Tear Drop Cells 1+ Ovalocytes Slight Acanthocytes (Spur) 2+ PT INR APTT pCO2 23 L pO2 186.0 H HCO3 7.8 L* ABG pH 7.14 L* ABG Total CO2 8.5 L ABG O2 Saturation 100.7 H ABG O2 Content ABG Base Excess -19.5 L ABG Hemoglobin ABG Carboxyhemoglobin POC ABG HHb (Measured) ABG Methemoglobin ABG O2 Capacity ABG Potassium 5.7 H VBG pH VBG pCO2 VBG HCO3 VBG Total CO2 VBG O2 Sat (Calc) VBG Base Excess VBG Potassium Hgb O2 Saturation Sodium 136.0 Chloride 104.0 Glucose 168 H Lactate 14.6 H* FiO2 100.0 Potassium Carbon Dioxide Anion Gap BUN Creatinine Est GFR ( Amer) Est GFR (Non-Af Amer) Random Glucose Lactic Acid Calcium Phosphorus Magnesium Total Bilirubin AST ALT Alkaline Phosphatase Lactate Dehydrogenase Total Creatine Kinase CK-MB (CK-2) CK-MB (CK-2) % Troponin I NT-Pro-B Natriuret Pep Total Protein Albumin Globulin Albumin/Globulin Ratio Arterial Blood Potassium 5.7 H Venous Blood Potassium Blood Type Antibody Screen Crossmatch BBK History Checked 01/07/18 01/07/18 01/07/18 10:00 10:00 13:00 WBC RBC Hgb Hct MCV MCH MCHC RDW Plt Count MPV Gran % Lymph % (Auto) [place] % (Auto) Eos % (Auto) Baso % (Auto) Gran # Lymph # (Auto) [place] # (Auto) Eos # (Auto) Baso # (Auto) Neutrophils % (Manual) Band Neutrophils % Lymphocytes % (Manual) Monocytes % (Manual) Platelet Evaluation Polychromasia Poikilocytosis (manual Anisocytosis (manual) Tear Drop Cells Ovalocytes Acanthocytes (Spur) PT INR APTT pCO2 pO2 HCO3 ABG pH ABG Total CO2 ABG O2 Saturation ABG O2 Content ABG Base Excess ABG Hemoglobin ABG Carboxyhemoglobin POC ABG HHb (Measured) ABG Methemoglobin ABG O2 Capacity ABG Potassium VBG pH VBG pCO2 VBG HCO3 VBG Total CO2 VBG O2 Sat (Calc) VBG Base Excess VBG Potassium Hgb O2 Saturation Sodium 140 140 Chloride 104 105 Glucose Lactate FiO2 Potassium 6.5 H* 6.8 H* Carbon Dioxide 10 L 8 L Anion Gap 33 H 34 H BUN 51 H 50 H Creatinine 2.3 H 2.4 H Est GFR ( Amer) 24 23 Est GFR (Non-Af Amer) 20 19 Random Glucose 132 H 183 H Lactic Acid 14.3 H* Calcium 8.3 L 8.2 L Phosphorus 10.8 H Magnesium 2.2 Total Bilirubin 3.4 H 3.3 H AST 05775 H ALT 3502 H 3727 H Alkaline Phosphatase 177 H 168 H Lactate Dehydrogenase 90962 H Total Creatine Kinase 1219 H CK-MB (CK-2) 22.3 H CK-MB (CK-2) % 1.8 L Troponin I 0.57 H* D 0.72 H* D NT-Pro-B Natriuret Pep Total Protein 5.6 L 5.5 L Albumin 3.0 2.9 L Globulin 2.6 2.6 Albumin/Globulin Ratio 1.1 1.1 Arterial Blood Potassium Venous Blood Potassium Blood Type Antibody Screen Crossmatch BBK History Checked 01/07/18 01/07/18 13:00 14:05 WBC RBC Hgb Hct MCV MCH MCHC RDW Plt Count MPV Gran % Lymph % (Auto) [place] % (Auto) Eos % (Auto) Baso % (Auto) Gran # Lymph # (Auto) [place] # (Auto) Eos # (Auto) Baso # (Auto) Neutrophils % (Manual) Band Neutrophils % Lymphocytes % (Manual) Monocytes % (Manual) Platelet Evaluation Polychromasia Poikilocytosis (manual Anisocytosis (manual) Tear Drop Cells Ovalocytes Acanthocytes (Spur) PT INR APTT pCO2 19 L* pO2 56 H 245.0 H HCO3 5.8 L* ABG pH 7.09 L* ABG Total CO2 6.4 L ABG O2 Saturation 100.6 H ABG O2 Content 13.8 L ABG Base Excess -22.2 L ABG Hemoglobin 9.6 L ABG Carboxyhemoglobin 1.7 H POC ABG HHb (Measured) -0.6 L ABG Methemoglobin 1.1 ABG O2 Capacity 13.7 L ABG Potassium VBG pH 7.02 L* VBG pCO2 32.0 L VBG HCO3 8.3 L VBG Total CO2 9.3 L VBG O2 Sat (Calc) 86.0 H VBG Base Excess -21.7 L VBG Potassium 6.8 H* Hgb O2 Saturation 97.8 Sodium 135.0 Chloride 104.0 Glucose 192 H Lactate 14.5 H* FiO2 21.0 100.0 Potassium Carbon Dioxide Anion Gap BUN Creatinine Est GFR ( Amer) Est GFR (Non-Af Amer) Random Glucose Lactic Acid Calcium Phosphorus Magnesium Total Bilirubin AST ALT Alkaline Phosphatase Lactate Dehydrogenase Total Creatine Kinase CK-MB (CK-2) CK-MB (CK-2) % Troponin I NT-Pro-B Natriuret Pep Total Protein Albumin Globulin Albumin/Globulin Ratio Arterial Blood Potassium Venous Blood Potassium 6.8 H* Blood Type Antibody Screen Crossmatch BBK History Checked EKG/Cardiology Studies: Cardiology / EKG Studies 01/07/18 00:22 ELECTROCARDIOGRAM Stat Comment: Reason For Exam: CREDIT OFFICER 01/07/18 09:09 ELECTROCARDIOGRAM Routine Comment: Reason For Exam: R/O MS 01/07/18 15:00 EKG [ELECTROCARDIOGRAM] Routine Comment: Reason For Exam: elevated troponin Critical Care Progress Note - Nutrition Nutrition: Nutrition Category Date Time Status NPO Diet [DIET] Diets 01/07/18 Breakfast Ordered Assessment/Plan - Assessment and Plan (Free Text) Assessment: This is a 87 year old female with PMH significant for de la o's esophagus, cholecystecomy, COPD, CHF, CAD s/p CABG and HT presenting to the ICU for management of acute hemorrhagic shock secondary to likely upper GI bleed with multi-organ failure including hypoxic respiratory distress, ALEE, metabolic acidosis, severe transaminitis and demand ischemia. She was brought into the ICU after CREDIT OFFICER called twice overnight, chest compressions performed and pressors given with ROSC. She was intubated and sedated, and started on dopamine and levophed due to continued low blood pressure. ABG done at 14:07 showed pH of 7.09, pCO2 of 19, pO2 of 245 and bicarb of 5.8 despite several hours of bicarb drip. Given 2 amps of bicarb at 14 :30, will get chem7 and PT/INR at 15:30 to reassess. INR elevated at 1.98, 10 units Vitamin K and 2 units FFP administered to reverse INR. Spoke with son who consented to DNR/DNI. Prognosis is guarded. Plan: Neuro: -maintain normothermia, currently is hypothermic 92-93 degrees and on bear hugger -sedated with fentanyl and intubated Cardio: -maintain MAP>65 -will monitor vitals including HR and BP closely -troponin is elevated at 0.72 due to likely demand ischemia from GI bleed. Will monitor -on metoprolol 2.5mg IV q8 -on dopamine, levophed -echo pending -Cardio consult, Dr. Vickers Lungs: -SaO2 >90% -supplementary O2 PRN -duonebs, pulmicort, xopoenex -Chest CT showed cardiomegaly, asymmetric pulmonary edema, B/L pleural effusions , consolidative changes in left lower lobe superimposed pneumonia -pH of 7.09, pCO2 of 19, pO2 of 245 and bicarb of 5.8, anion gap metabolic acidosis present and on bicarb drip -CXR today showed combination of atelectasis and or infiltrate with effusion with possible interstitial infiltrates -Pulm on consult, Dr. Kerns -GI: -severe transaminitis: AST/ALT: 23798/3502 secondary to hemorrhagic shock -NPO diet -GI prophylaxis with protonix -CT abd/pelvis: no acute findings -GI on consult, Dr. Owusu ID: -WBC is 21.3 today, hypothermic on bear hugger -no blood growth after 3 days, no urine culture growth. Blood culture repeated today -on merrum, doxycycline -ID on consult, Dr Leo Renal: -maintain euvolemia -avoid nephrotoxic agents, hypochloremia. -replace electrolytes as needed -BUN/Cr is 50/2.4, will monitor. Holding lasix, ramipril -Potassium elevated at 6.8, given insulin5 units IVP, dextrose 50%, and calcium glucanate -currently receiving bicarb drip and received 2 amps bicarb at 14:30. Will repeat CMP at 15:30 -lactic acid and chem7 pending Heme: -Hg today is 9.9, will monitor -Holding ASA, lovenox due to likely GI bleed -PT/INR: 22.9/1.98 -Due to INR elevated at 1.98, 10 units Vitamin K and 2 units FFP administered to reverse INR. -repeat PT/INR pending Endo: -maintain euglycemia <Lee Quezada - Last Filed: 01/07/18 16:41> CCU Objective - Vital Signs / Intake & Output Vital Signs (Last 4 hours): Vital Signs Temp Pulse BP Pulse Ox 01/07/18 16:20 97.2 F L 130 H 99 01/07/18 16:10 97.3 F L 120 H 99 01/07/18 16:00 97.3 F L 126 H 100 01/07/18 15:50 97.3 F L 124 H 99 01/07/18 15:40 97.3 F L 119 H 99 01/07/18 15:31 97.3 F L 119 H 37/23 L 96 01/07/18 15:30 97.3 F L 120 H 95 01/07/18 15:20 97.3 F L 118 H 90 L 01/07/18 15:10 97.5 F L 125 H 88 L 01/07/18 15:00 97.5 F L 137 H 40/22 L 84 L 01/07/18 14:55 97.5 F L 122 H 41/25 L 85 L 01/07/18 14:50 97.5 F L 120 H 84 L 01/07/18 14:40 97.7 F 135 H 84 L 01/07/18 14:30 97.7 F 101 H 40/27 L 89 L 01/07/18 14:20 97.7 F 109 H 93 L 01/07/18 14:10 97.9 F 109 H 97 01/07/18 14:00 97.9 F 109 H 100 01/07/18 13:50 98.1 F 109 H 100 01/07/18 13:40 98.1 F 108 H 100 01/07/18 13:30 98.1 F 108 H 99 01/07/18 13:20 98.2 F 108 H 100 01/07/18 13:10 98.2 F 106 H 100 01/07/18 13:00 98.2 F 107 H 100 01/07/18 12:50 98.2 F 108 H 82 L 01/07/18 12:44 98.2 F 109 H 01/07/18 12:43 98.2 F 110 H 01/07/18 12:42 98.2 F 109 H Intake and Output (Last 8hrs): Intake & Output 01/07/18 01/07/18 01/07/18 06:59 14:59 22:59 Intake Total 2540 Balance 2540 Intake: IV 2540 Right Antecubital 80 Right Forearm 2000 Right Internal Jugular 300 - Medications Active Medications: Active Medications Generic Name Dose Route Start Last Admin Trade Name Freq PRN Reason Stop Dose Admin Albuterol/Ipratropium 3 ml 01/03/18 08:27 01/03/18 08:35 Duoneb 3 Mg/0.5 Mg (3 Ml) Ud IH 3 ml Q2H PRN Administration Shortness of Breath Alprazolam 0.25 mg 01/03/18 10:00 01/07/18 16:04 Xanax PO 01/10/18 10:01 Not Given BID MULUGETA Protocol Atorvastatin Calcium 20 mg 01/02/18 22:30 01/06/18 22:58 Lipitor PO Not Given HS MULUGETA Budesonide 0.5 mg 01/03/18 20:00 01/07/18 08:01 Pulmicort Respules IH 0.5 mg [id number] MULUGETA Administration Docusate Sodium 100 mg 01/02/18 22:30 01/07/18 10:00 Colace PO Not Given BID MULUGETA Doxycycline Hyclate 100 mg 01/03/18 22:00 01/07/18 15:56 Doryx PO Not Given Q12 MULUGETA Protocol Fluticasone Propionate 1 actuation 01/03/18 10:00 01/07/18 15:57 Flonase NS Not Given DAILY MULUGETA Pantoprazole Sodium 40 mg in 100 mls @ 20 mls/hr 01/07/18 01:30 01/07/18 16: 04 Protonix 40mg Ivpb IVPB 20 mls/hr .Q5H MULUGETA Administration Sodium Bicarbonate 100 meq/ 1,100 mls @ 100 mls/hr 01/07/18 02:45 01/07/18 04 :18 Dextrose/Sodium Chloride IV 100 mls/hr .Q11H MULUGETA Administration Dopamine HCl/Dextrose 400 mg in 250 mls @ 10.206 mls/hr 01/07/18 01:40 01:50 Dopamine 400mg/250ml D5w IV 10 mcg/kg/min .Q24H PRN 20.412 mls/hr TITRATE PER MD ORDER Titration Protocol 5 MCG/KG/MIN NOREPINEPHRINE BIT/0.9 % NACL 4 mg in 250 mls @ 15 mls/hr 01/07/18 02:00 04/16 05:00 Levophed 4 Mg/ 250 Ml Ns Premixed IV 12 mcg/min .[id number] PRN 45 mls/hr TITRATE PER MD ORDER Titration Protocol 4 MCG/MIN Meropenem 500 mg/ Sodium 50 mls @ 100 mls/hr 01/07/18 08:30 01/07/18 11:30 Chloride IVPB 01/14/18 08:31 100 mls/hr Q12 MULUGETA Administration Protocol Fentanyl Citrate 1,000 mcg in 100 mls @ 2 mls/hr 01/07/18 09:25 01/07/18 10: 30 Fentanyl Citrate/Sodium Chloride 1 Mg/100 Ml IV 20 mcg/hr .Q24H PRN 2 mls/hr TITRATE PER MD ORDER Administration Protocol 20 MCG/HR Levalbuterol HCl 1.25 mg 01/06/18 08:00 01/07/18 14:33 Xopenex IH 1.25 mg [id number] MULUGETA Administration Metoprolol Tartrate 2.5 mg 01/07/18 10:00 01/07/18 15:57 Lopressor IV Not Given Q8H MULUGETA Ondansetron HCl 4 mg 01/03/18 10:46 01/06/18 14:31 Zofran Inj IVP 4 mg Q8 PRN Administration Nausea/Vomiting Pantoprazole Sodium 40 mg 01/07/18 10:00 Protonix Inj IVP DAILY MULUGETA Primidone 50 mg 01/03/18 10:00 01/07/18 15:57 Mysoline PO Not Given DAILY MULUGETA Ramipril 2.5 mg 01/05/18 10:00 Altace PO DAILY MULUGETA - Patient Studies Lab Studies: Microbiology Studies 01/03/18 17:13 Blood Culture - Preliminary Blood NO GROWTH AFTER 3 DAYS 01/03/18 17:13 Blood Culture - Preliminary Blood NO GROWTH AFTER 3 DAYS Lab Studies 01/07/18 01/07/18 01/07/18 Range/Units 15:47 15:47 15:47 WBC 22.5 H (4.5-11.0) 10^3/ul RBC 3.34 L (3.5-6.1) 10^6/uL Hgb 9.6 L (12.0-16.0) g/dL Hct 31.3 L (36.0-48.0) % MCV 93.7 (80.0-105.0) fl MCH 28.7 (25.0-35.0) pg MCHC 30.7 L (31.0-37.0) g/dl RDW 15.9 H (11.5-14.5) % Plt Count 53 L (120.0-450.0) 10^3/uL MPV 11.9 H (7.0-11.0) fl Gran % 89.8 H (50.0-68.0) % Lymph % (Auto) 5.0 L (22.0-35.0) % [place] % (Auto) 5.2 (1.0-6.0) % Eos % (Auto) 0.0 L (1.5-5.0) % Baso % (Auto) 0.0 (0.0-3.0) % Gran # 20.21 H (1.4-6.5) Lymph # (Auto) 1.1 L (1.2-3.4) [place] # (Auto) 1.2 H (0.1-0.6) Eos # (Auto) 0.0 (0.0-0.7) Baso # (Auto) 0.01 (0.0-2.0) K/mm3 Neutrophils % (Manual) (50.0-70.0) % Band Neutrophils % (0-2) % Lymphocytes % (Manual) (22.0-35.0) % Monocytes % (Manual) (1.0-6.0) % Platelet Evaluation (NORMAL) Polychromasia Poikilocytosis (manual Anisocytosis (manual) Tear Drop Cells Ovalocytes Acanthocytes (Spur) PT 28.4 H (9.4-12.5) SECONDS INR 2.45 APTT (25.1-36.5) Seconds pCO2 (35-45) mm/Hg pO2 (30-55) mm/Hg HCO3 (21-28) mmol/L ABG pH (7.35-7.45) ABG Total CO2 (22-28) mmol.L ABG O2 Saturation (95-98) % ABG O2 Content (15-23) ML/dl ABG Base Excess (-2.0-3.0) mmol/L ABG Hemoglobin (11.7-17.4) g/dL ABG Carboxyhemoglobin (0.5-1.5) % POC ABG HHb (Measured) (0-5) % ABG Methemoglobin (0.0-3.0) % ABG O2 Capacity (16-24) mL/dl ABG Potassium (3.6-5.2) mmol/L VBG pH (7.32-7.43) VBG pCO2 (40-60) VBG HCO3 (21-28) mmol/l VBG Total CO2 (22-28) mmol.L VBG O2 Sat (Calc) (40-65) % VBG Base Excess (0.0-2.0) mmol/L VBG Potassium (3.6-5.2) mmol/L Hgb O2 Saturation (95.0-98.0) % Sodium 143 (132-148) mmol/L Chloride 104 (98-107) mmol/L Glucose (65-105) mg/dl Lactate (0.7-2.1) mmol/L FiO2 % Potassium 6.5 H* (3.6-5.0) mmol/L Carbon Dioxide 12 L (21-33) mmol/L Anion Gap 34 H (10-20) BUN 49 H (7-21) mg/dL Creatinine 2.4 H (0.7-1.2) mg/dl Est GFR ( Amer) 23 Est GFR (Non-Af Amer) 19 Random Glucose 146 H (70-110) mg/dL Lactic Acid (0.7-2.1) mmol/L Calcium 7.9 L (8.4-10.5) mg/dL Phosphorus (2.5-4.5) mg/dL Magnesium (1.7-2.2) mg/dL Total Bilirubin 3.5 H (0.2-1.3) mg/dL AST (14-36) U/L ALT (7-56) U/L Alkaline Phosphatase 185 H (38-126) U/L Lactate Dehydrogenase (333-699) U/L Total Creatine Kinase (35-230) U/L CK-MB (CK-2) (0.0-3.6) ng/mL CK-MB (CK-2) % (2.5-3.0) % Troponin I ng/mL NT-Pro-B Natriuret Pep (0-450) pg/mL Total Protein 5.4 L (5.8-8.3) g/dL Albumin 2.8 L (3.0-4.8) g/dL Globulin 2.6 gm/dL Albumin/Globulin Ratio 1.1 (1.1-1.8) Arterial Blood Potassium (3.6-5.2) mmol/L Venous Blood Potassium (3.6-5.2) mmol/L Blood Type Antibody Screen Crossmatch BBK History Checked 01/07/18 01/07/18 01/07/18 Range/Units 15:47 14:05 13:00 WBC (4.5-11.0) 10^3/ul RBC (3.5-6.1) 10^6/uL Hgb (12.0-16.0) g/dL Hct (36.0-48.0) % MCV (80.0-105.0) fl MCH (25.0-35.0) pg MCHC (31.0-37.0) g/dl RDW (11.5-14.5) % Plt Count (120.0-450.0) 10^3/uL MPV (7.0-11.0) fl Gran % (50.0-68.0) % Lymph % (Auto) (22.0-35.0) % [place] % (Auto) (1.0-6.0) % Eos % (Auto) (1.5-5.0) % Baso % (Auto) (0.0-3.0) % Gran # (1.4-6.5) Lymph # (Auto) (1.2-3.4) [place] # (Auto) (0.1-0.6) Eos # (Auto) (0.0-0.7) Baso # (Auto) (0.0-2.0) K/mm3 Neutrophils % (Manual) (50.0-70.0) % Band Neutrophils % (0-2) % Lymphocytes % (Manual) (22.0-35.0) % Monocytes % (Manual) (1.0-6.0) % Platelet Evaluation (NORMAL) Polychromasia Poikilocytosis (manual Anisocytosis (manual) Tear Drop Cells Ovalocytes Acanthocytes (Spur) PT (9.4-12.5) SECONDS INR APTT (25.1-36.5) Seconds pCO2 19 L* (35-45) mm/Hg pO2 245.0 H 56 H (30-55) mm/Hg HCO3 5.8 L* (21-28) mmol/L ABG pH 7.09 L* (7.35-7.45) ABG Total CO2 6.4 L (22-28) mmol.L ABG O2 Saturation 100.6 H (95-98) % ABG O2 Content 13.8 L (15-23) ML/dl ABG Base Excess -22.2 L (-2.0-3.0) mmol/L ABG Hemoglobin 9.6 L (11.7-17.4) g/dL ABG Carboxyhemoglobin 1.7 H (0.5-1.5) % POC ABG HHb (Measured) -0.6 L (0-5) % ABG Methemoglobin 1.1 (0.0-3.0) % ABG O2 Capacity 13.7 L (16-24) mL/dl ABG Potassium (3.6-5.2) mmol/L VBG pH 7.02 L* (7.32-7.43) VBG pCO2 32.0 L (40-60) VBG HCO3 8.3 L (21-28) mmol/l VBG Total CO2 9.3 L (22-28) mmol.L VBG O2 Sat (Calc) 86.0 H (40-65) % VBG Base Excess -21.7 L (0.0-2.0) mmol/L VBG Potassium 6.8 H* (3.6-5.2) mmol/L Hgb O2 Saturation 97.8 (95.0-98.0) % Sodium 135.0 (132-148) mmol/L Chloride 104.0 (98-107) mmol/L Glucose 192 H (65-105) mg/dl Lactate 14.5 H* (0.7-2.1) mmol/L FiO2 100.0 21.0 % Potassium (3.6-5.0) mmol/L Carbon Dioxide (21-33) mmol/L Anion Gap (10-20) BUN (7-21) mg/dL Creatinine (0.7-1.2) mg/dl Est GFR ( Amer) Est GFR (Non-Af Amer) Random Glucose (70-110) mg/dL Lactic Acid 13.9 H* (0.7-2.1) mmol/L Calcium (8.4-10.5) mg/dL Phosphorus (2.5-4.5) mg/dL Magnesium (1.7-2.2) mg/dL Total Bilirubin (0.2-1.3) mg/dL AST (14-36) U/L ALT (7-56) U/L Alkaline Phosphatase (38-126) U/L Lactate Dehydrogenase (333-699) U/L Total Creatine Kinase (35-230) U/L CK-MB (CK-2) (0.0-3.6) ng/mL CK-MB (CK-2) % (2.5-3.0) % Troponin I ng/mL NT-Pro-B Natriuret Pep (0-450) pg/mL Total Protein (5.8-8.3) g/dL Albumin (3.0-4.8) g/dL Globulin gm/dL Albumin/Globulin Ratio (1.1-1.8) Arterial Blood Potassium (3.6-5.2) mmol/L Venous Blood Potassium 6.8 H* (3.6-5.2) mmol/L Blood Type Antibody Screen Crossmatch BBK History Checked 01/07/18 01/07/18 01/07/18 Range/Units 13:00 10:00 10:00 WBC (4.5-11.0) 10^3/ul RBC (3.5-6.1) 10^6/uL Hgb (12.0-16.0) g/dL Hct (36.0-48.0) % MCV (80.0-105.0) fl MCH (25.0-35.0) pg MCHC (31.0-37.0) g/dl RDW (11.5-14.5) % Plt Count (120.0-450.0) 10^3/uL MPV (7.0-11.0) fl Gran % (50.0-68.0) % Lymph % (Auto) (22.0-35.0) % [place] % (Auto) (1.0-6.0) % Eos % (Auto) (1.5-5.0) % Baso % (Auto) (0.0-3.0) % Gran # (1.4-6.5) Lymph # (Auto) (1.2-3.4) [place] # (Auto) (0.1-0.6) Eos # (Auto) (0.0-0.7) Baso # (Auto) (0.0-2.0) K/mm3 Neutrophils % (Manual) (50.0-70.0) % Band Neutrophils % (0-2) % Lymphocytes % (Manual) (22.0-35.0) % Monocytes % (Manual) (1.0-6.0) % Platelet Evaluation (NORMAL) Polychromasia Poikilocytosis (manual Anisocytosis (manual) Tear Drop Cells Ovalocytes Acanthocytes (Spur) PT (9.4-12.5) SECONDS INR APTT (25.1-36.5) Seconds pCO2 (35-45) mm/Hg pO2 (30-55) mm/Hg HCO3 (21-28) mmol/L ABG pH (7.35-7.45) ABG Total CO2 (22-28) mmol.L ABG O2 Saturation (95-98) % ABG O2 Content (15-23) ML/dl ABG Base Excess (-2.0-3.0) mmol/L ABG Hemoglobin (11.7-17.4) g/dL ABG Carboxyhemoglobin (0.5-1.5) % POC ABG HHb (Measured) (0-5) % ABG Methemoglobin (0.0-3.0) % ABG O2 Capacity (16-24) mL/dl ABG Potassium (3.6-5.2) mmol/L VBG pH (7.32-7.43) VBG pCO2 (40-60) VBG HCO3 (21-28) mmol/l VBG Total CO2 (22-28) mmol.L VBG O2 Sat (Calc) (40-65) % VBG Base Excess (0.0-2.0) mmol/L VBG Potassium (3.6-5.2) mmol/L Hgb O2 Saturation (95.0-98.0) % Sodium 140 140 (132-148) mmol/L Chloride 105 104 (98-107) mmol/L Glucose (65-105) mg/dl Lactate (0.7-2.1) mmol/L FiO2 % Potassium 6.8 H* 6.5 H* (3.6-5.0) mmol/L Carbon Dioxide 8 L 10 L (21-33) mmol/L Anion Gap 34 H 33 H (10-20) BUN 50 H 51 H (7-21) mg/dL Creatinine 2.4 H 2.3 H (0.7-1.2) mg/dl Est GFR ( Amer) 23 24 Est GFR (Non-Af Amer) 19 20 Random Glucose 183 H 132 H (70-110) mg/dL Lactic Acid 14.3 H* (0.7-2.1) mmol/L Calcium 8.2 L 8.3 L (8.4-10.5) mg/dL Phosphorus 10.8 H (2.5-4.5) mg/dL Magnesium 2.2 (1.7-2.2) mg/dL Total Bilirubin 3.3 H 3.4 H (0.2-1.3) mg/dL AST 47476 H 42000 H (14-36) U/L ALT 3727 H 3502 H (7-56) U/L Alkaline Phosphatase 168 H 177 H (38-126) U/L Lactate Dehydrogenase 07067 H (333-699) U/L Total Creatine Kinase 1219 H (35-230) U/L CK-MB (CK-2) 22.3 H (0.0-3.6) ng/mL CK-MB (CK-2) % 1.8 L (2.5-3.0) % Troponin I 0.72 H* D 0.57 H* D ng/mL NT-Pro-B Natriuret Pep (0-450) pg/mL Total Protein 5.5 L 5.6 L (5.8-8.3) g/dL Albumin 2.9 L 3.0 (3.0-4.8) g/dL Globulin 2.6 2.6 gm/dL Albumin/Globulin Ratio 1.1 1.1 (1.1-1.8) Arterial Blood Potassium (3.6-5.2) mmol/L Venous Blood Potassium (3.6-5.2) mmol/L Blood Type Antibody Screen Crossmatch BBK History Checked 01/07/18 01/07/18 01/07/18 Range/Units 09:30 08:25 06:00 WBC 21.3 H 22.4 H D (4.5-11.0) 10^3/ul RBC 3.40 L 2.65 L (3.5-6.1) 10^6/uL Hgb 9.9 L D 7.8 L (12.0-16.0) g/dL Hct 32.5 L 25.4 L (36.0-48.0) % MCV 95.6 95.8 (80.0-105.0) fl MCH 29.1 29.4 (25.0-35.0) pg MCHC 30.5 L 30.7 L (31.0-37.0) g/dl RDW 15.4 H 15.0 H (11.5-14.5) % Plt Count 85 L 99 L (120.0-450.0) 10^3/uL MPV 12.1 H 12.0 H (7.0-11.0) fl Gran % 91.7 H 88.3 H (50.0-68.0) % Lymph % (Auto) 4.8 L 6.8 L (22.0-35.0) % [place] % (Auto) 3.5 4.8 (1.0-6.0) % Eos % (Auto) 0.0 L 0.0 L (1.5-5.0) % Baso % (Auto) 0.0 0.1 (0.0-3.0) % Gran # 19.55 H 19.79 H (1.4-6.5) Lymph # (Auto) 1.0 L 1.5 (1.2-3.4) [place] # (Auto) 0.7 H 1.1 H (0.1-0.6) Eos # (Auto) 0.0 0.0 (0.0-0.7) Baso # (Auto) 0.01 0.02 (0.0-2.0) K/mm3 Neutrophils % (Manual) 84 H (50.0-70.0) % Band Neutrophils % 6 H (0-2) % Lymphocytes % (Manual) 8 L (22.0-35.0) % Monocytes % (Manual) 2 (1.0-6.0) % Platelet Evaluation Low (NORMAL) Polychromasia Slight Poikilocytosis (manual Slight Anisocytosis (manual) Slight Tear Drop Cells 1+ Ovalocytes Slight Acanthocytes (Spur) 2+ PT (9.4-12.5) SECONDS INR APTT (25.1-36.5) Seconds pCO2 23 L (35-45) mm/Hg pO2 186.0 H (30-55) mm/Hg HCO3 7.8 L* (21-28) mmol/L ABG pH 7.14 L* (7.35-7.45) ABG Total CO2 8.5 L (22-28) mmol.L ABG O2 Saturation 100.7 H (95-98) % ABG O2 Content (15-23) ML/dl ABG Base Excess -19.5 L (-2.0-3.0) mmol/L ABG Hemoglobin (11.7-17.4) g/dL ABG Carboxyhemoglobin (0.5-1.5) % POC ABG HHb (Measured) (0-5) % ABG Methemoglobin (0.0-3.0) % ABG O2 Capacity (16-24) mL/dl ABG Potassium 5.7 H (3.6-5.2) mmol/L VBG pH (7.32-7.43) VBG pCO2 (40-60) VBG HCO3 (21-28) mmol/l VBG Total CO2 (22-28) mmol.L VBG O2 Sat (Calc) (40-65) % VBG Base Excess (0.0-2.0) mmol/L VBG Potassium (3.6-5.2) mmol/L Hgb O2 Saturation (95.0-98.0) % Sodium 136.0 (132-148) mmol/L Chloride 104.0 (98-107) mmol/L Glucose 168 H (65-105) mg/dl Lactate 14.6 H* (0.7-2.1) mmol/L FiO2 100.0 % Potassium (3.6-5.0) mmol/L Carbon Dioxide (21-33) mmol/L Anion Gap (10-20) BUN (7-21) mg/dL Creatinine (0.7-1.2) mg/dl Est GFR ( Amer) Est GFR (Non-Af Amer) Random Glucose (70-110) mg/dL Lactic Acid (0.7-2.1) mmol/L Calcium (8.4-10.5) mg/dL Phosphorus (2.5-4.5) mg/dL Magnesium (1.7-2.2) mg/dL Total Bilirubin (0.2-1.3) mg/dL AST (14-36) U/L ALT (7-56) U/L Alkaline Phosphatase (38-126) U/L Lactate Dehydrogenase (333-699) U/L Total Creatine Kinase (35-230) U/L CK-MB (CK-2) (0.0-3.6) ng/mL CK-MB (CK-2) % (2.5-3.0) % Troponin I ng/mL NT-Pro-B Natriuret Pep (0-450) pg/mL Total Protein (5.8-8.3) g/dL Albumin (3.0-4.8) g/dL Globulin gm/dL Albumin/Globulin Ratio (1.1-1.8) Arterial Blood Potassium 5.7 H (3.6-5.2) mmol/L Venous Blood Potassium (3.6-5.2) mmol/L Blood Type Antibody Screen Crossmatch BBK History Checked 01/07/18 01/07/18 01/07/18 Range/Units 06:00 06:00 01:05 WBC (4.5-11.0) 10^3/ul RBC (3.5-6.1) 10^6/uL Hgb (12.0-16.0) g/dL Hct (36.0-48.0) % MCV (80.0-105.0) fl MCH (25.0-35.0) pg MCHC (31.0-37.0) g/dl RDW (11.5-14.5) % Plt Count (120.0-450.0) 10^3/uL MPV (7.0-11.0) fl Gran % (50.0-68.0) % Lymph % (Auto) (22.0-35.0) % [place] % (Auto) (1.0-6.0) % Eos % (Auto) (1.5-5.0) % Baso % (Auto) (0.0-3.0) % Gran # (1.4-6.5) Lymph # (Auto) (1.2-3.4) [place] # (Auto) (0.1-0.6) Eos # (Auto) (0.0-0.7) Baso # (Auto) (0.0-2.0) K/mm3 Neutrophils % (Manual) (50.0-70.0) % Band Neutrophils % (0-2) % Lymphocytes % (Manual) (22.0-35.0) % Monocytes % (Manual) (1.0-6.0) % Platelet Evaluation (NORMAL) Polychromasia Poikilocytosis (manual Anisocytosis (manual) Tear Drop Cells Ovalocytes Acanthocytes (Spur) PT (9.4-12.5) SECONDS INR APTT (25.1-36.5) Seconds pCO2 (35-45) mm/Hg pO2 65 H (30-55) mm/Hg HCO3 (21-28) mmol/L ABG pH (7.35-7.45) ABG Total CO2 (22-28) mmol.L ABG O2 Saturation (95-98) % ABG O2 Content (15-23) ML/dl ABG Base Excess (-2.0-3.0) mmol/L ABG Hemoglobin (11.7-17.4) g/dL ABG Carboxyhemoglobin (0.5-1.5) % POC ABG HHb (Measured) (0-5) % ABG Methemoglobin (0.0-3.0) % ABG O2 Capacity (16-24) mL/dl ABG Potassium (3.6-5.2) mmol/L VBG pH 7.08 L* (7.32-7.43) VBG pCO2 34.0 L (40-60) VBG HCO3 10.1 L (21-28) mmol/l VBG Total CO2 11.1 L (22-28) mmol.L VBG O2 Sat (Calc) 93.8 H (40-65) % VBG Base Excess -18.9 L (0.0-2.0) mmol/L VBG Potassium 5.6 H (3.6-5.2) mmol/L Hgb O2 Saturation (95.0-98.0) % Sodium 136.0 139 (132-148) mmol/L Chloride 105.0 104 (98-107) mmol/L Glucose 173 H (65-105) mg/dl Lactate 15.2 H* (0.7-2.1) mmol/L FiO2 21.0 % Potassium 5.6 H* (3.6-5.0) mmol/L Carbon Dioxide 11 L (21-33) mmol/L Anion Gap 30 H (10-20) BUN 52 H (7-21) mg/dL Creatinine 2.0 H (0.7-1.2) mg/dl Est GFR ( Amer) 29 Est GFR (Non-Af Amer) 24 Random Glucose 167 H (70-110) mg/dL Lactic Acid (0.7-2.1) mmol/L Calcium 8.4 (8.4-10.5) mg/dL Phosphorus (2.5-4.5) mg/dL Magnesium (1.7-2.2) mg/dL Total Bilirubin (0.2-1.3) mg/dL AST (14-36) U/L ALT (7-56) U/L Alkaline Phosphatase (38-126) U/L Lactate Dehydrogenase (333-699) U/L Total Creatine Kinase (35-230) U/L CK-MB (CK-2) (0.0-3.6) ng/mL CK-MB (CK-2) % (2.5-3.0) % Troponin I ng/mL NT-Pro-B Natriuret Pep 22406 H (0-450) pg/mL Total Protein (5.8-8.3) g/dL Albumin (3.0-4.8) g/dL Globulin gm/dL Albumin/Globulin Ratio (1.1-1.8) Arterial Blood Potassium (3.6-5.2) mmol/L Venous Blood Potassium 5.6 H (3.6-5.2) mmol/L Blood Type O POSITIVE Antibody Screen Negative Crossmatch See Detail BBK History Checked Patient has bt 01/07/18 01/07/18 01/07/18 Range/Units 01:05 01:05 01:05 WBC (4.5-11.0) 10^3/ul RBC (3.5-6.1) 10^6/uL Hgb (12.0-16.0) g/dL Hct (36.0-48.0) % MCV (80.0-105.0) fl MCH (25.0-35.0) pg MCHC (31.0-37.0) g/dl RDW (11.5-14.5) % Plt Count (120.0-450.0) 10^3/uL MPV (7.0-11.0) fl Gran % (50.0-68.0) % Lymph % (Auto) (22.0-35.0) % [place] % (Auto) (1.0-6.0) % Eos % (Auto) (1.5-5.0) % Baso % (Auto) (0.0-3.0) % Gran # (1.4-6.5) Lymph # (Auto) (1.2-3.4) [place] # (Auto) (0.1-0.6) Eos # (Auto) (0.0-0.7) Baso # (Auto) (0.0-2.0) K/mm3 Neutrophils % (Manual) (50.0-70.0) % Band Neutrophils % (0-2) % Lymphocytes % (Manual) (22.0-35.0) % Monocytes % (Manual) (1.0-6.0) % Platelet Evaluation (NORMAL) Polychromasia Poikilocytosis (manual Anisocytosis (manual) Tear Drop Cells Ovalocytes Acanthocytes (Spur) PT 22.9 H (9.4-12.5) SECONDS INR 1.98 APTT 29.5 (25.1-36.5) Seconds pCO2 (35-45) mm/Hg pO2 36 (30-55) mm/Hg HCO3 (21-28) mmol/L ABG pH (7.35-7.45) ABG Total CO2 (22-28) mmol.L ABG O2 Saturation (95-98) % ABG O2 Content (15-23) ML/dl ABG Base Excess (-2.0-3.0) mmol/L ABG Hemoglobin (11.7-17.4) g/dL ABG Carboxyhemoglobin (0.5-1.5) % POC ABG HHb (Measured) (0-5) % ABG Methemoglobin (0.0-3.0) % ABG O2 Capacity (16-24) mL/dl ABG Potassium (3.6-5.2) mmol/L VBG pH 6.93 L* (7.32-7.43) VBG pCO2 43.0 (40-60) VBG HCO3 9.0 L (21-28) mmol/l VBG Total CO2 10.3 L (22-28) mmol.L VBG O2 Sat (Calc) 45.4 (40-65) % VBG Base Excess -23.1 L (0.0-2.0) mmol/L VBG Potassium 7.1 H* (3.6-5.2) mmol/L Hgb O2 Saturation (95.0-98.0) % Sodium 132.0 (132-148) mmol/L Chloride 101.0 (98-107) mmol/L Glucose 164 H (65-105) mg/dl Lactate 14.5 H* (0.7-2.1) mmol/L FiO2 21.0 % Potassium (3.6-5.0) mmol/L Carbon Dioxide (21-33) mmol/L Anion Gap (10-20) BUN (7-21) mg/dL Creatinine (0.7-1.2) mg/dl Est GFR ( Amer) Est GFR (Non-Af Amer) Random Glucose (70-110) mg/dL Lactic Acid (0.7-2.1) mmol/L Calcium (8.4-10.5) mg/dL Phosphorus 11.4 H (2.5-4.5) mg/dL Magnesium 2.5 H (1.7-2.2) mg/dL Total Bilirubin (0.2-1.3) mg/dL AST (14-36) U/L ALT (7-56) U/L Alkaline Phosphatase (38-126) U/L Lactate Dehydrogenase (333-699) U/L Total Creatine Kinase (35-230) U/L CK-MB (CK-2) (0.0-3.6) ng/mL CK-MB (CK-2) % (2.5-3.0) % Troponin I ng/mL NT-Pro-B Natriuret Pep (0-450) pg/mL Total Protein (5.8-8.3) g/dL Albumin (3.0-4.8) g/dL Globulin gm/dL Albumin/Globulin Ratio (1.1-1.8) Arterial Blood Potassium (3.6-5.2) mmol/L Venous Blood Potassium 7.1 H* (3.6-5.2) mmol/L Blood Type Antibody Screen Crossmatch BBK History Checked 01/07/18 01/07/18 01/06/18 Range/Units 01:05 01:05 19:45 WBC 15.6 H 16.7 H D (4.5-11.0) 10^3/ul RBC 3.06 L 3.57 (3.5-6.1) 10^6/uL Hgb 8.9 L 10.4 L (12.0-16.0) g/dL Hct 29.5 L 32.2 L (36.0-48.0) % MCV 96.4 D 90.2 (80.0-105.0) fl MCH 29.1 29.1 (25.0-35.0) pg MCHC 30.2 L 32.3 (31.0-37.0) g/dl RDW 15.0 H 14.9 H (11.5-14.5) % Plt Count 133 173 (120.0-450.0) 10^3/uL MPV 12.2 H 11.7 H (7.0-11.0) fl Gran % 73.8 H (50.0-68.0) % Lymph % (Auto) 10.2 L (22.0-35.0) % [place] % (Auto) 15.9 H (1.0-6.0) % Eos % (Auto) 0.0 L (1.5-5.0) % Baso % (Auto) 0.1 (0.0-3.0) % Gran # 11.53 H (1.4-6.5) Lymph # (Auto) 1.6 (1.2-3.4) [place] # (Auto) 2.5 H (0.1-0.6) Eos # (Auto) 0.0 (0.0-0.7) Baso # (Auto) 0.01 (0.0-2.0) K/mm3 Neutrophils % (Manual) (50.0-70.0) % Band Neutrophils % (0-2) % Lymphocytes % (Manual) (22.0-35.0) % Monocytes % (Manual) (1.0-6.0) % Platelet Evaluation (NORMAL) Polychromasia Poikilocytosis (manual Anisocytosis (manual) Tear Drop Cells Ovalocytes Acanthocytes (Spur) PT (9.4-12.5) SECONDS INR APTT (25.1-36.5) Seconds pCO2 (35-45) mm/Hg pO2 (30-55) mm/Hg HCO3 (21-28) mmol/L ABG pH (7.35-7.45) ABG Total CO2 (22-28) mmol.L ABG O2 Saturation (95-98) % ABG O2 Content (15-23) ML/dl ABG Base Excess (-2.0-3.0) mmol/L ABG Hemoglobin (11.7-17.4) g/dL ABG Carboxyhemoglobin (0.5-1.5) % POC ABG HHb (Measured) (0-5) % ABG Methemoglobin (0.0-3.0) % ABG O2 Capacity (16-24) mL/dl ABG Potassium (3.6-5.2) mmol/L VBG pH (7.32-7.43) VBG pCO2 (40-60) VBG HCO3 (21-28) mmol/l VBG Total CO2 (22-28) mmol.L VBG O2 Sat (Calc) (40-65) % VBG Base Excess (0.0-2.0) mmol/L VBG Potassium (3.6-5.2) mmol/L Hgb O2 Saturation (95.0-98.0) % Sodium 136 (132-148) mmol/L Chloride 100 (98-107) mmol/L Glucose (65-105) mg/dl Lactate (0.7-2.1) mmol/L FiO2 % Potassium 7.0 H* D (3.6-5.0) mmol/L Carbon Dioxide 10 L D (21-33) mmol/L Anion Gap 32 H (10-20) BUN 54 H (7-21) mg/dL Creatinine 2.0 H (0.7-1.2) mg/dl Est GFR ( Amer) 29 Est GFR (Non-Af Amer) 24 Random Glucose 154 H (70-110) mg/dL Lactic Acid (0.7-2.1) mmol/L Calcium 8.0 L (8.4-10.5) mg/dL Phosphorus (2.5-4.5) mg/dL Magnesium (1.7-2.2) mg/dL Total Bilirubin 2.5 H (0.2-1.3) mg/dL AST 7172 H (14-36) U/L ALT 2341 H (7-56) U/L Alkaline Phosphatase 156 H (38-126) U/L Lactate Dehydrogenase (333-699) U/L Total Creatine Kinase (35-230) U/L CK-MB (CK-2) (0.0-3.6) ng/mL CK-MB (CK-2) % (2.5-3.0) % Troponin I 0.30 H* D ng/mL NT-Pro-B Natriuret Pep (0-450) pg/mL Total Protein 5.8 (5.8-8.3) g/dL Albumin 3.1 (3.0-4.8) g/dL Globulin 2.7 gm/dL Albumin/Globulin Ratio 1.1 (1.1-1.8) Arterial Blood Potassium (3.6-5.2) mmol/L Venous Blood Potassium (3.6-5.2) mmol/L Blood Type Antibody Screen Crossmatch BBK History Checked Laboratory Results - last 24 hr 01/06/18 01/07/18 01/07/18 19:45 01:05 01:05 WBC 16.7 H D 15.6 H RBC 3.57 3.06 L Hgb 10.4 L 8.9 L Hct 32.2 L 29.5 L MCV 90.2 96.4 D MCH 29.1 29.1 MCHC 32.3 30.2 L RDW 14.9 H 15.0 H Plt Count 173 133 MPV 11.7 H 12.2 H Gran % 73.8 H Lymph % (Auto) 10.2 L [place] % (Auto) 15.9 H Eos % (Auto) 0.0 L Baso % (Auto) 0.1 Gran # 11.53 H Lymph # (Auto) 1.6 [place] # (Auto) 2.5 H Eos # (Auto) 0.0 Baso # (Auto) 0.01 Neutrophils % (Manual) Band Neutrophils % Lymphocytes % (Manual) Monocytes % (Manual) Platelet Evaluation Polychromasia Poikilocytosis (manual Anisocytosis (manual) Tear Drop Cells Ovalocytes Acanthocytes (Spur) PT INR APTT pCO2 pO2 HCO3 ABG pH ABG Total CO2 ABG O2 Saturation ABG O2 Content ABG Base Excess ABG Hemoglobin ABG Carboxyhemoglobin POC ABG HHb (Measured) ABG Methemoglobin ABG O2 Capacity ABG Potassium VBG pH VBG pCO2 VBG HCO3 VBG Total CO2 VBG O2 Sat (Calc) VBG Base Excess VBG Potassium Hgb O2 Saturation Sodium 136 Chloride 100 Glucose Lactate FiO2 Potassium 7.0 H* D Carbon Dioxide 10 L D Anion Gap 32 H BUN 54 H Creatinine 2.0 H Est GFR ( Amer) 29 Est GFR (Non-Af Amer) 24 Random Glucose 154 H Lactic Acid Calcium 8.0 L Phosphorus Magnesium Total Bilirubin 2.5 H AST 7172 H ALT 2341 H Alkaline Phosphatase 156 H Lactate Dehydrogenase Total Creatine Kinase CK-MB (CK-2) CK-MB (CK-2) % Troponin I 0.30 H* D NT-Pro-B Natriuret Pep Total Protein 5.8 Albumin 3.1 Globulin 2.7 Albumin/Globulin Ratio 1.1 Arterial Blood Potassium Venous Blood Potassium Blood Type Antibody Screen Crossmatch BBK History Checked 01/07/18 01/07/18 01/07/18 01:05 01:05 01:05 WBC RBC Hgb Hct MCV MCH MCHC RDW Plt Count MPV Gran % Lymph % (Auto) [place] % (Auto) Eos % (Auto) Baso % (Auto) Gran # Lymph # (Auto) [place] # (Auto) Eos # (Auto) Baso # (Auto) Neutrophils % (Manual) Band Neutrophils % Lymphocytes % (Manual) Monocytes % (Manual) Platelet Evaluation Polychromasia Poikilocytosis (manual Anisocytosis (manual) Tear Drop Cells Ovalocytes Acanthocytes (Spur) PT 22.9 H INR 1.98 APTT 29.5 pCO2 pO2 36 HCO3 ABG pH ABG Total CO2 ABG O2 Saturation ABG O2 Content ABG Base Excess ABG Hemoglobin ABG Carboxyhemoglobin POC ABG HHb (Measured) ABG Methemoglobin ABG O2 Capacity ABG Potassium VBG pH 6.93 L* VBG pCO2 43.0 VBG HCO3 9.0 L VBG Total CO2 10.3 L VBG O2 Sat (Calc) 45.4 VBG Base Excess -23.1 L VBG Potassium 7.1 H* Hgb O2 Saturation Sodium 132.0 Chloride 101.0 Glucose 164 H Lactate 14.5 H* FiO2 21.0 Potassium Carbon Dioxide Anion Gap BUN Creatinine Est GFR ( Amer) Est GFR (Non-Af Amer) Random Glucose Lactic Acid Calcium Phosphorus 11.4 H Magnesium 2.5 H Total Bilirubin AST ALT Alkaline Phosphatase Lactate Dehydrogenase Total Creatine Kinase CK-MB (CK-2) CK-MB (CK-2) % Troponin I NT-Pro-B Natriuret Pep Total Protein Albumin Globulin Albumin/Globulin Ratio Arterial Blood Potassium Venous Blood Potassium 7.1 H* Blood Type Antibody Screen Crossmatch BBK History Checked 01/07/18 01/07/18 01/07/18 01:05 06:00 06:00 WBC RBC Hgb Hct MCV MCH MCHC RDW Plt Count MPV Gran % Lymph % (Auto) [place] % (Auto) Eos % (Auto) Baso % (Auto) Gran # Lymph # (Auto) [place] # (Auto) Eos # (Auto) Baso # (Auto) Neutrophils % (Manual) Band Neutrophils % Lymphocytes % (Manual) Monocytes % (Manual) Platelet Evaluation Polychromasia Poikilocytosis (manual Anisocytosis (manual) Tear Drop Cells Ovalocytes Acanthocytes (Spur) PT INR APTT pCO2 pO2 65 H HCO3 ABG pH ABG Total CO2 ABG O2 Saturation ABG O2 Content ABG Base Excess ABG Hemoglobin ABG Carboxyhemoglobin POC ABG HHb (Measured) ABG Methemoglobin ABG O2 Capacity ABG Potassium VBG pH 7.08 L* VBG pCO2 34.0 L VBG HCO3 10.1 L VBG Total CO2 11.1 L VBG O2 Sat (Calc) 93.8 H VBG Base Excess -18.9 L VBG Potassium 5.6 H Hgb O2 Saturation Sodium 139 136.0 Chloride 104 105.0 Glucose 173 H Lactate 15.2 H* FiO2 21.0 Potassium 5.6 H* Carbon Dioxide 11 L Anion Gap 30 H BUN 52 H Creatinine 2.0 H Est GFR ( Amer) 29 Est GFR (Non-Af Amer) 24 Random Glucose 167 H Lactic Acid Calcium 8.4 Phosphorus Magnesium Total Bilirubin AST ALT Alkaline Phosphatase Lactate Dehydrogenase Total Creatine Kinase CK-MB (CK-2) CK-MB (CK-2) % Troponin I NT-Pro-B Natriuret Pep 52672 H Total Protein Albumin Globulin Albumin/Globulin Ratio Arterial Blood Potassium Venous Blood Potassium 5.6 H Blood Type O POSITIVE Antibody Screen Negative Crossmatch See Detail BBK History Checked Patient has bt 01/07/18 01/07/18 01/07/18 06:00 08:25 09:30 WBC 22.4 H D 21.3 H RBC 2.65 L 3.40 L Hgb 7.8 L 9.9 L D Hct 25.4 L 32.5 L MCV 95.8 95.6 MCH 29.4 29.1 MCHC 30.7 L 30.5 L RDW 15.0 H 15.4 H Plt Count 99 L 85 L MPV 12.0 H 12.1 H Gran % 88.3 H 91.7 H Lymph % (Auto) 6.8 L 4.8 L [place] % (Auto) 4.8 3.5 Eos % (Auto) 0.0 L 0.0 L Baso % (Auto) 0.1 0.0 Gran # 19.79 H 19.55 H Lymph # (Auto) 1.5 1.0 L [place] # (Auto) 1.1 H 0.7 H Eos # (Auto) 0.0 0.0 Baso # (Auto) 0.02 0.01 Neutrophils % (Manual) 84 H Band Neutrophils % 6 H Lymphocytes % (Manual) 8 L Monocytes % (Manual) 2 Platelet Evaluation Low Polychromasia Slight Poikilocytosis (manual Slight Anisocytosis (manual) Slight Tear Drop Cells 1+ Ovalocytes Slight Acanthocytes (Spur) 2+ PT INR APTT pCO2 23 L pO2 186.0 H HCO3 7.8 L* ABG pH 7.14 L* ABG Total CO2 8.5 L ABG O2 Saturation 100.7 H ABG O2 Content ABG Base Excess -19.5 L ABG Hemoglobin ABG Carboxyhemoglobin POC ABG HHb (Measured) ABG Methemoglobin ABG O2 Capacity ABG Potassium 5.7 H VBG pH VBG pCO2 VBG HCO3 VBG Total CO2 VBG O2 Sat (Calc) VBG Base Excess VBG Potassium Hgb O2 Saturation Sodium 136.0 Chloride 104.0 Glucose 168 H Lactate 14.6 H* FiO2 100.0 Potassium Carbon Dioxide Anion Gap BUN Creatinine Est GFR ( Amer) Est GFR (Non-Af Amer) Random Glucose Lactic Acid Calcium Phosphorus Magnesium Total Bilirubin AST ALT Alkaline Phosphatase Lactate Dehydrogenase Total Creatine Kinase CK-MB (CK-2) CK-MB (CK-2) % Troponin I NT-Pro-B Natriuret Pep Total Protein Albumin Globulin Albumin/Globulin Ratio Arterial Blood Potassium 5.7 H Venous Blood Potassium Blood Type Antibody Screen Crossmatch BBK History Checked 01/07/18 01/07/18 01/07/18 10:00 10:00 13:00 WBC RBC Hgb Hct MCV MCH MCHC RDW Plt Count MPV Gran % Lymph % (Auto) [place] % (Auto) Eos % (Auto) Baso % (Auto) Gran # Lymph # (Auto) [place] # (Auto) Eos # (Auto) Baso # (Auto) Neutrophils % (Manual) Band Neutrophils % Lymphocytes % (Manual) Monocytes % (Manual) Platelet Evaluation Polychromasia Poikilocytosis (manual Anisocytosis (manual) Tear Drop Cells Ovalocytes Acanthocytes (Spur) PT INR APTT pCO2 pO2 HCO3 ABG pH ABG Total CO2 ABG O2 Saturation ABG O2 Content ABG Base Excess ABG Hemoglobin ABG Carboxyhemoglobin POC ABG HHb (Measured) ABG Methemoglobin ABG O2 Capacity ABG Potassium VBG pH VBG pCO2 VBG HCO3 VBG Total CO2 VBG O2 Sat (Calc) VBG Base Excess VBG Potassium Hgb O2 Saturation Sodium 140 140 Chloride 104 105 Glucose Lactate FiO2 Potassium 6.5 H* 6.8 H* Carbon Dioxide 10 L 8 L Anion Gap 33 H 34 H BUN 51 H 50 H Creatinine 2.3 H 2.4 H Est GFR ( Amer) 24 23 Est GFR (Non-Af Amer) 20 19 Random Glucose 132 H 183 H Lactic Acid 14.3 H* Calcium 8.3 L 8.2 L Phosphorus 10.8 H Magnesium 2.2 Total Bilirubin 3.4 H 3.3 H AST 78718 H 20408 H ALT 3502 H 3727 H Alkaline Phosphatase 177 H 168 H Lactate Dehydrogenase 35515 H Total Creatine Kinase 1219 H CK-MB (CK-2) 22.3 H CK-MB (CK-2) % 1.8 L Troponin I 0.57 H* D 0.72 H* D NT-Pro-B Natriuret Pep Total Protein 5.6 L 5.5 L Albumin 3.0 2.9 L Globulin 2.6 2.6 Albumin/Globulin Ratio 1.1 1.1 Arterial Blood Potassium Venous Blood Potassium Blood Type Antibody Screen Crossmatch BBK History Checked 01/07/18 01/07/18 01/07/18 13:00 14:05 15:47 WBC RBC Hgb Hct MCV MCH MCHC RDW Plt Count MPV Gran % Lymph % (Auto) [place] % (Auto) Eos % (Auto) Baso % (Auto) Gran # Lymph # (Auto) [place] # (Auto) Eos # (Auto) Baso # (Auto) Neutrophils % (Manual) Band Neutrophils % Lymphocytes % (Manual) Monocytes % (Manual) Platelet Evaluation Polychromasia Poikilocytosis (manual Anisocytosis (manual) Tear Drop Cells Ovalocytes Acanthocytes (Spur) PT INR APTT pCO2 19 L* pO2 56 H 245.0 H HCO3 5.8 L* ABG pH 7.09 L* ABG Total CO2 6.4 L ABG O2 Saturation 100.6 H ABG O2 Content 13.8 L ABG Base Excess -22.2 L ABG Hemoglobin 9.6 L ABG Carboxyhemoglobin 1.7 H POC ABG HHb (Measured) -0.6 L ABG Methemoglobin 1.1 ABG O2 Capacity 13.7 L ABG Potassium VBG pH 7.02 L* VBG pCO2 32.0 L VBG HCO3 8.3 L VBG Total CO2 9.3 L VBG O2 Sat (Calc) 86.0 H VBG Base Excess -21.7 L VBG Potassium 6.8 H* Hgb O2 Saturation 97.8 Sodium 135.0 Chloride 104.0 Glucose 192 H Lactate 14.5 H* FiO2 21.0 100.0 Potassium Carbon Dioxide Anion Gap BUN Creatinine Est GFR ( Amer) Est GFR (Non-Af Amer) Random Glucose Lactic Acid 13.9 H* Calcium Phosphorus Magnesium Total Bilirubin AST ALT Alkaline Phosphatase Lactate Dehydrogenase Total Creatine Kinase CK-MB (CK-2) CK-MB (CK-2) % Troponin I NT-Pro-B Natriuret Pep Total Protein Albumin Globulin Albumin/Globulin Ratio Arterial Blood Potassium Venous Blood Potassium 6.8 H* Blood Type Antibody Screen Crossmatch BBK History Checked 01/07/18 01/07/18 01/07/18 15:47 15:47 15:47 WBC 22.5 H RBC 3.34 L Hgb 9.6 L Hct 31.3 L MCV 93.7 MCH 28.7 MCHC 30.7 L RDW 15.9 H Plt Count 53 L MPV 11.9 H Gran % 89.8 H Lymph % (Auto) 5.0 L [place] % (Auto) 5.2 Eos % (Auto) 0.0 L Baso % (Auto) 0.0 Gran # 20.21 H Lymph # (Auto) 1.1 L [place] # (Auto) 1.2 H Eos # (Auto) 0.0 Baso # (Auto) 0.01 Neutrophils % (Manual) Band Neutrophils % Lymphocytes % (Manual) Monocytes % (Manual) Platelet Evaluation Polychromasia Poikilocytosis (manual Anisocytosis (manual) Tear Drop Cells Ovalocytes Acanthocytes (Spur) PT 28.4 H INR 2.45 APTT pCO2 pO2 HCO3 ABG pH ABG Total CO2 ABG O2 Saturation ABG O2 Content ABG Base Excess ABG Hemoglobin ABG Carboxyhemoglobin POC ABG HHb (Measured) ABG Methemoglobin ABG O2 Capacity ABG Potassium VBG pH VBG pCO2 VBG HCO3 VBG Total CO2 VBG O2 Sat (Calc) VBG Base Excess VBG Potassium Hgb O2 Saturation Sodium 143 Chloride 104 Glucose Lactate FiO2 Potassium 6.5 H* Carbon Dioxide 12 L Anion Gap 34 H BUN 49 H Creatinine 2.4 H Est GFR ( Amer) 23 Est GFR (Non-Af Amer) 19 Random Glucose 146 H Lactic Acid Calcium 7.9 L Phosphorus Magnesium Total Bilirubin 3.5 H AST ALT Alkaline Phosphatase 185 H Lactate Dehydrogenase Total Creatine Kinase CK-MB (CK-2) CK-MB (CK-2) % Troponin I NT-Pro-B Natriuret Pep Total Protein 5.4 L Albumin 2.8 L Globulin 2.6 Albumin/Globulin Ratio 1.1 Arterial Blood Potassium Venous Blood Potassium Blood Type Antibody Screen Crossmatch BBK History Checked EKG/Cardiology Studies: Cardiology / EKG Studies 01/07/18 00:22 ELECTROCARDIOGRAM Stat Comment: Reason For Exam: CREDIT OFFICER 01/07/18 09:09 ELECTROCARDIOGRAM Routine Comment: Reason For Exam: R/O MS 01/07/18 15:00 EKG [ELECTROCARDIOGRAM] Routine Comment: Reason For Exam: elevated troponin Critical Care Progress Note - Nutrition Nutrition: Nutrition Category Date Time Status NPO Diet [DIET] Diets 01/07/18 Breakfast Ordered Addendum Addendum: 01/07/18 16:41 CU Attending Addendum: Patient seen and examined. Case reviewed on round with housestaff. Agree with resident note above with the following additions/exceptions: Dx: Cardiac arrest acute blood lose anemia myocardial ischemia shock liver acute renal failure CAD/CAGB COPD Afib Ana was initially admitted to the hospital with non-bloody diarrhea. Overnight she acutely decompensated and I suspect the cause is acute blood loss anemia based on her HB drop 11.6 -> 7.8 sine admission. Her hypovolemia as a results increase demand on an already diseased heart which explains the elevated TNI. The shock is multiorgan effecting the liver and causing renal failure. In addition, she is profoundly acidotic which is metabolic in nature from elevated lac acid and renal failure. At this point we are supporting her blood replacement and reversing her INR with 2 unit FFP. Stoping ASA and lovenox. Cont to volume resisciate her. She is also on abx empirically based on her CXR, I suspect this is from an aspiration event. Abx as per ID. Her condition is poor and I sat down in person with her son Balbir and his . We agreed that more CPR would not be of benefit and given her low quality of life prior to this event, she would not want much more aggressive care. We will cont with non-invasive medical optimization. No CPR. She is DNR/DNI. If no improvement in the next 24-48 hours, will provide comfort care. I answered all the questions by her family. Lee Quezada MD Property Field Inspector Critical Care time 60 mins
[2018-01-07 15:52] LABS: BASO # 0.01 K/mm3 (0.0-2.0); GRAN # 20.21 (1.4-6.5); GRAN % 89.8 % (50.0-68.0); HEMOGLOBIN 9.6 g/dL (12.0-16.0); LYMPH # 1.1 (1.2-3.4); MEAN CELL VOLUME 93.7 fl (80.0-105.0); MEAN CORPUSCULAR HEMOGLOBIN 28.7 pg (25.0-35.0); MEAN CORPUSCULAR HGB CONC 30.7 g/dl (31.0-37.0); MEAN PLATELET VOLUME 11.9 fl (7.0-11.0); MONO # 1.2 (0.1-0.6); MONO % 5.2 % (1.0-6.0); PLATELET COUNT 53 10^3/uL (120.0-450.0); RBC 3.34 10^6/uL (3.5-6.1); RED CELL DISTRIBUTION WIDTH 15.9 % (11.5-14.5); WHITE BLOOD COUNT 22.5 10^3/ul (4.5-11.0)
[2018-01-07] MEDS: Metoprolol 1 mg/ml Inj IV SCH ×2 (15:57→17:33)
[2018-01-07] MEDS: Fluticasone Nasal 50 mcg/Spray NS SCH (15:57)
[2018-01-07 16:02] LABS: INR 2.45; PROTHROMBIN TIME 28.4 SECONDS (9.4-12.5)
[2018-01-07 16:37] LABS: ALB/GLOB RATIO 1.1 (1.1-1.8); ALBUMIN 2.8 g/dL (3.0-4.8); CALCIUM 7.9 mg/dL (8.4-10.5)
[2018-01-07] MEDS ORDERED: Morphine PCA 1 mg/ml (30ml) 30 ML IV PRN (18:32)
[2018-01-07] MEDS: Morphine PCA 1 mg/ml (30ml) 30 ML IV SCH (19:58)
--- NOTE | 2018-01-08 00:18 | PN ---
Copied To: Verónica Cherry MD Attending MD: Verónica Cherry MD DATE: 01/07/2018 SUBJECTIVE: Patient was seen bedside. She had rapid response in the night. Was resuscitated low blood pressure, currently on the Levophed. She also has GI bleed , NG tube - dark-colored fluid been drained. She is sedated intubated. Hemoglobin 9.9. REVIEW OF SYSTEMS: Could not be obtained, sedated, intubated. PHYSICAL EXAMINATION: GENERAL: She is sedated, intubated and resection draining serosanguineous fluid. HEENT: Pupils reacting to light. Head atraumatic, normocephalic. Pallor positive. Mucosa dry. CHEST: Air entry present, equal, bilateral. sedated, intubated, on ventilator. CARDIOVASCULAR: S1, S2 normal. Tachycardia present. ABDOMEN: Soft, nontender, nondistended. BACK: Normal inspection. EXTREMITIES: No edema. NEURO: Sedated, intubated. SKIN: Dry and pale. MEDICATIONS: Reviewed. LABORATORY DATA: White count 21,000, hemoglobin 9.9, hematocrit 32.5, platelet count 85. Granulocyte 91%, lymphocyte 4.8%, monocyte 3.5%. Sodium 140. Potassium 6.5, BUN 51, creatinine 2.3. Bilirubin 3.4, AST 13,000, ALT 3000. ASSESSMENT/PLAN: .This is an 87-year-old female with Mckeon's esophagitis, cholecystectomy, chronic obstructive pulmonary disease, coronary artery disease with hemorrhagic shock, upper gastrointestinal bleed, multiorgan failure, respiratory distress, intubated sedated, acute kidney injury, ischemic liver. Had rapid response twice. Currently on pressors. Currently hypothermic on bear hugger. . Tachycardia on pressors, dopamine, Levophed. Cardiology consultation Dr. Vickers appreciated. Respiratory failure, intubated, sedated. Gastrointestinal bleed. Dr. Owusu following. Hematology, severe anemia, coagulopathy, status post 2 units of FFP for coagulopathy reversal. Acute renal failure. Poor prognosis. Discussed with the ICU resident. Verónica Cherry MD MTDD
[2018-01-08] MEDS: Levalbuterol 1.25 MG/3 ML Inhal Soln UD IH SCH ×2 (02:27→08:22)
[2018-01-08] MEDS: Metoprolol 1 mg/ml Inj IV SCH (02:46)
[2018-01-08] MEDS: Pantoprazole 40mg/100mL NS 40 MG/100 ML BAG IVPB SCH ×2 (02:51→04:51)
[2018-01-08] MEDS: NOREPINEPHRINE BIT/0.9 % NACL 4 MG/250 ML BAG IV PRN ×2 (03:29→06:35)
[2018-01-08 05:28] LABS: ARTERIAL BLOOD GAS HEMOGLOBIN 7.7 g/dL (11.7-17.4); ARTERIAL BLOOD GAS O2 CONTENT 11.1 ML/dl (15-23); ARTERIAL BLOOD GAS O2 SAT 100.7 % (95-98); ARTERIAL BLOOD GAS PCO2 38 mm/Hg (35-45)
[2018-01-08 05:40] LABS: ARTERIAL BLOOD GAS HCO3 7.8 mmol/L (21-28); ARTERIAL BLOOD GAS PH 6.92 (7.35-7.45)
[2018-01-08] MEDS: DOPamine 400mg/250ml D5W 400 MG/250 ML BAG IV PRN (06:01)
[2018-01-08 06:06] LABS: BASO # 0.01 K/mm3 (0.0-2.0); BASO % 0.1 % (0.0-3.0); GRAN % 85.9 % (50.0-68.0); HEMOGLOBIN 7.8 g/dL (12.0-16.0); LYMPH # 1.6 (1.2-3.4); MEAN CELL VOLUME 102.3 fl (80.0-105.0); MEAN CORPUSCULAR HEMOGLOBIN 29.5 pg (25.0-35.0); MEAN CORPUSCULAR HGB CONC 28.9 g/dl (31.0-37.0); MEAN PLATELET VOLUME 11.6 fl (7.0-11.0); MONO # 1.2 (0.1-0.6); RBC 2.64 10^6/uL (3.5-6.1); RED CELL DISTRIBUTION WIDTH 17.6 % (11.5-14.5); WHITE BLOOD COUNT 19.8 10^3/ul (4.5-11.0)
[2018-01-08 06:09] LABS: PLATELET COUNT 36 10^3/uL (120.0-450.0)
[2018-01-08] MEDS: Sodium Bicarbonate 8.4% 100 MEQ in Dextrose 5%/0.9% NS 1,000 ML IV SCH (06:38)
[2018-01-08] MEDS: Fentanyl 1000mcg/100ml NS 1,000 MCG/100 ML BAG IV PRN (06:38)
[2018-01-08 06:58] LABS: ALBUMIN 2.1 g/dL (3.0-4.8); CALCIUM 6.5 mg/dL (8.4-10.5)
--- NOTE | 2018-01-08 07:43 | PN ---
Copied To: José Miguel Kerns MD Attending MD: José Miguel Kerns MD DATE: 01/08/2018(640am-730am) PULMONARY NOTE SUBJECTIVE: The patient remains on the ventilator. She is now sedated. PHYSICAL EXAMINATION: VITAL SIGNS: Temperature is 98.8, pulse 85, respirations 20/16, blood pressure 57/36. HEENT: Normocephalic, atraumatic. No JVD. CARDIOVASCULAR: Systolic ejection murmur at the lower left sternal border. No S3 gallop. LUNGS: Decreased breath sounds at the bases. Mild bilateral rhonchi. No wheezing. EXTREMITIES: Mild edema. No cyanosis. No clubbing. GI: Abdomen is soft, nondistended. Bowel sounds are positive. SKIN: No acute rash. NEUROLOGIC: Limited at the present time. PERTINENT LABORATORY DATA: Chest x-ray was done this morning and reviewed. There is now a diffuse infiltrate noted throughout the left lung. There are small bilateral pleural effusions. ABG -pending. IMPRESSION: 1. Respiratory failure. 2. Status post cardiopulmonary resuscitation. 3. Sepsis with shock. 4. Advanced chronic obstructive pulmonary disease. 5. Left lower lobe pneumonia. 6. [id number] myocardial infarction. 7. Anemia. PLAN: The patient remains in the ICU and on the ventilator. She is currently sedated. I did discuss the case with the night nurse at length. The night nurse stated that the patient is doing poorly overall. She remains hypotensive despite high-dose pressors. I did review the chest x-ray as above. The chest x-ray now reveals a diffuse infiltrate noted throughout the left lung. There are also small pleural effusions noted. Arterial blood gas was done - not in the computer at the present time. I will check the results when feasible. I would continue with the antibiotic coverage as per Infectious Disease. There are no temperatures noted. The leukocytosis is decreased. I would continue with the GI and Cardiology evaluations. Inputs are noted. The patient remains critically ill with overall very poor prognosis. I will discuss the above with the entire ICU team in the next few moments. I will also discuss the above with the attending physician. José Miguel Kerns MD MTDDimple
[2018-01-08] MEDS: Budesonide 0.5 mg/2 ml Inhal Susp UD IH SCH (08:22)
--- NOTE | 2018-01-08 08:34 | CP.PCM.PN ---
Subjective - Date & Time of Evaluation Date of Evaluation: 01/08/18 Time of Evaluation: 07:00 - Subjective Subjective: Events of yesterday noted. On vent, sedated with low BP/shock on levo and dopa and multiorgan failure V/S noted. AF. PE: Lungs: rhonchi Cor.: S1S2 Abd.: soft Ext.: no edema Neuro.: sedated I/O= 7835/330 Labs noted: H/H = 7.8/27, PL Ct = 36,000, K+= 8.0, Cr = 3.0, abn LFTs ECG 01/07 : AF, STTW changes BC X2 NG at 4 days Urine C+S: NG CXR today not read yet. Looks about the same with L>R infiltrate. Echo 01/07: Nl LV contractility, see report. Objective - Vital Signs/Intake and Output Vital Signs (last 24 hours): Temp Pulse Resp BP Pulse Ox 98.4 F 134 H 33 H 78/36 L 100 01/08/18 07:50 01/08/18 07:50 01/07/18 08:04 01/08/18 07:00 01/08/18 07:50 Intake and Output: 01/08/18 01/08/18 06:59 18:59 Intake Total 4090 Output Total 30 Balance 4060 - Medications Medications: Current Medications Albuterol/Ipratropium (Duoneb 3 Mg/0.5 Mg (3 Ml) Ud) 3 ml IH Q2H PRN PRN Reason: Shortness of Breath Last Admin: 01/03/18 08:35 Dose: 3 ml Alprazolam (Xanax) 0.25 mg PO BID MULUGETA PRN Reason: Protocol Stop: 01/10/18 10:01 Last Admin: 01/07/18 17:34 Dose: Not Given Atorvastatin Calcium (Lipitor) 20 mg PO HS MULUGETA Last Admin: 01/07/18 22:05 Dose: Not Given Budesonide (Pulmicort Respules) 0.5 mg IH [id number] [facility] Last Admin: 01/07/18 20:08 Dose: 0.5 mg Docusate Sodium (Colace) 100 mg PO BID MULUGETA Last Admin: 01/07/18 17:33 Dose: Not Given Fluticasone Propionate (Flonase) 1 actuation NS DAILY [facility] Last Admin: 01/07/18 15:57 Dose: Not Given Pantoprazole Sodium (Protonix 40mg Ivpb) 40 mg in 100 mls @ 20 mls/hr IVPB .Q5H MULUGETA Last Admin: 01/08/18 04:51 Dose: 20 mls/hr Sodium Bicarbonate 100 meq/ (Dextrose/Sodium Chloride) 1,100 mls @ 100 mls/hr IV .Q11H [facility] Last Admin: 01/08/18 06:38 Dose: 100 mls/hr Dopamine HCl/Dextrose (Dopamine 400mg/250ml D5w) 400 mg in 250 mls @ 10.206 mls /hr IV .Q24H PRN; Protocol; 5 MCG/KG/MIN PRN Reason: TITRATE PER MD ORDER Last Admin: 01/08/18 06:01 Dose: 10 mcg/kg/min, 20.412 mls/hr NOREPINEPHRINE BIT/0.9 % NACL (Levophed 4 Mg/ 250 Ml Ns Premixed) 4 mg in 250 mls @ 15 mls/hr IV .[id number] PRN; Protocol; 4 MCG/MIN PRN Reason: TITRATE PER MD ORDER Last Admin: 01/08/18 06:35 Dose: 25 mcg/min, 93.75 mls/hr Meropenem 500 mg/ Sodium (Chloride) 50 mls @ 100 mls/hr IVPB Q12 MULUGETA PRN Reason: Protocol Stop: 01/14/18 08:31 Last Admin: 01/07/18 22:02 Dose: 100 mls/hr Fentanyl Citrate (Fentanyl Citrate/Sodium Chloride 1 Mg/100 Ml) 1,000 mcg in 100 mls @ 2 mls/hr IV .Q24H PRN; Protocol; 20 MCG/HR PRN Reason: TITRATE PER MD ORDER Last Admin: 01/08/18 06:38 Dose: 100 mcg/hr, 10 mls/hr Morphine Sulfate (Morphine [employer] 1 Mg/Ml) 30 mls @ 2 mls/hr IV PRN MULUGETA; 2 MG/HR PRN Reason: Protocol Last Admin: 01/07/18 19:58 Dose: 2 mg/hr, 2 mls/hr Doxycycline Hyclate 100 mg/ (Sodium Chloride) 100 mls @ 100 mls/hr IVPB Q12 MULUGETA PRN Reason: Protocol Stop: 01/15/18 10:01 Levalbuterol HCl (Xopenex) 1.25 mg IH [id number] [facility] Last Admin: 01/08/18 02:27 Dose: 1.25 mg Metoprolol Tartrate (Lopressor) 2.5 mg IV Q8H [facility] Last Admin: 01/08/18 02:46 Dose: Not Given Ondansetron HCl (Zofran Inj) 4 mg IVP Q8 PRN PRN Reason: Nausea/Vomiting Last Admin: 01/06/18 14:31 Dose: 4 mg Pantoprazole Sodium (Protonix Inj) 40 mg IVP DAILY [facility] Primidone (Mysoline) 50 mg PO DAILY [facility] Last Admin: 01/07/18 15:57 Dose: Not Given Ramipril (Altace) 2.5 mg PO DAILY [facility] - Labs Labs: 01/08/18 06:00 01/08/18 06:00 PT 28.4 SECONDS (9.4-12.5) H 01/07/18 15:47 INR 2.45 01/07/18 15:47 APTT 29.5 Seconds (25.1-36.5) 01/07/18 01:05 Assessment and Plan - Assessment and Plan (Free Text) Assessment: Chest Pain, Abdominal Pain, Diarrhea Mild + trops, uncertain significance, R/O acute FL. echo 01/07 shows nl. LV contractility which is against major FL as cause for sudden deterioration. Sudden deterioration 01/06 with abd. and RAJENDRA pain, hyperkalemia, acute renal failure, metabolic acidosis, abn LFTs, coffee ground emesis via NGT, hypotension , respiratory failure, shock, etc. 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 Cherry, [employer] AB Rx for hyperkalemia Titrate pressors. Transfuse as needed. Monitor labs, I/O, ABGs, sats, etc. Prognosis very poor.
--- NOTE | 2018-01-08 08:46 | CARD ---
APPROVED REPORT Date of service: 01/07/2018 EXAM: Two-dimensional and M-mode echocardiogram with Doppler and color Doppler. Other Information Quality : AverageRhythm : INDICATION S/P CPR, SHOCK, R/O [place] 2D DIMENSIONS Left Atrium (2D)5.0 (1.6-4.0cm)IVSd1.2 (0.7-1.1cm) LVDd4.4 (3.9-5.9cm)PWd1.2 (0.7-1.1cm) LVDs3.0 (2.5-4.0cm)FS (%) 31.0 % LVEF (%)59.0 (>50%) M-Mode DIMENSIONS Aortic Root3.50 (2.2-3.7cm)Aortic Cusp Exc.1.40 (1.5-2.0cm) Aortic Valve AoV Peak Mlsbpurf846.0cm/Jung Peak GR.5mmHgAI P 1/2 [id number] Mitral Valve MV E Mhkkvmep091.0cm/sMV E Peak Gr.32mmHgMV A Qsrrfoss196.0cm/s MV E Mean Gr.11mmHgMV ODO38ulK/A ratio2.0 MVA (PHT)2.78cm2 TDI Lateral E' Peak V10.30cm/sMedial E' Peak V4.29cm/sE/Lateral E'22.1 E/Medial E'53.1 Pulmonary Valve PV Peak Cyaxxsvu72.4cm/sPV Peak Grad.1mmHg Tricuspid Valve TR Peak Bcuiomsa989wd/sRAP [id number] Peak Gr.37mmHg [id number] LEFT VENTRICLE The left ventricle is normal size. There is mild concentric left ventricular hypertrophy. The left ventricular function is normal. The left ventricular ejection fraction is within the normal range. There is normal LV segmental wall motion. RIGHT VENTRICLE The right ventricle is normal size. ATRIA The left atrium is markedly dilated. The right atrium size is normal. The interatrial septum is intact with no evidence for an atrial septal defect. AORTIC VALVE The aortic valve is mildly calcified. There is mild aortic regurgitation. MITRAL VALVE Mitral regurgitation is moderate. Prosthetic mitral valve appears normal. There is MAC and subvalvular calcification. TRICUSPID VALVE The tricuspid valve is normal in structure. There is moderate tricuspid regurgitation. There is moderate pulmonary hypertension. PULMONIC VALVE The pulmonary valve is normal in structure. GREAT VESSELS The aortic root is normal in size. PERICARDIAL EFFUSION There is no pericardial effusion. <Conclusion> The left ventricle is normal size. There is mild concentric left ventricular hypertrophy. The left ventricular function is normal. The left ventricular ejection fraction is within the normal range. There is normal LV segmental wall motion. The aortic valve is mildly calcified. Aortic sclerosis. There is mild aortic regurgitation. Prosthetic mitral valve appears normal. There is MAC and subvalvular calcification. Mitral regurgitation is moderate. There is moderate tricuspid regurgitation. There is moderate pulmonary hypertension.
[2018-01-08] MEDS: Morphine PCA 1 mg/ml (30ml) 30 ML IV SCH (10:15)
--- NOTE | 2018-01-08 11:00 | CP.PCM.PN ---
Subjective - Date & Time of Evaluation Date of Evaluation: 01/08/18 Time of Evaluation: 10:55 - Subjective Subjective: Patient continues to be on the ventilator, sedated, still on vasopressors, had bouts of hypothermia as per the nurse. Objective - Vital Signs/Intake and Output Vital Signs (last 24 hours): Temp Pulse Resp BP Pulse Ox 93.7 F L 94 H 33 H 94/77 L 80 L 01/07/18 08:08 01/07/18 08:08 01/07/18 08:04 01/07/18 07:00 01/07/18 07:30 Intake and Output: 01/07/18 01/07/18 06:59 18:59 Intake Total 2540 Output Total 200 Balance 2340 - Medications Medications: Current Medications Albuterol/Ipratropium (Duoneb 3 Mg/0.5 Mg (3 Ml) Ud) 3 ml IH Q2H PRN PRN Reason: Shortness of Breath Last Admin: 01/03/18 08:35 Dose: 3 ml Alprazolam (Xanax) 0.25 mg PO BID ON LICENSE OF [facility] PRN Reason: Protocol Stop: 01/10/18 10:01 Last Admin: 01/06/18 18:50 Dose: Not Given Amlodipine Besylate (Norvasc) 5 mg PO DAILY ON LICENSE OF [facility] Last Admin: 01/06/18 09:34 Dose: Not Given Atorvastatin Calcium (Lipitor) 20 mg PO HS ON LICENSE OF [facility] Last Admin: 01/06/18 22:58 Dose: Not Given Budesonide (Pulmicort Respules) 0.5 mg IH [id number] ON [facility] OF [facility] Last Admin: 01/07/18 08:01 Dose: 0.5 mg Calcium Gluconate (Calcium Gluconate Iv) 1,000 mg IVP ONCE ONE Stop: 01/07/18 11:07 Dextrose (Dextrose 50% Inj) 50 ml IVP ONCE ONE Stop: 01/07/18 11:06 Docusate Sodium (Colace) 100 mg PO BID ON LICENSE OF [facility] Last Admin: 01/06/18 18:02 Dose: Not Given Doxycycline Hyclate (Doryx) 100 mg PO Q12 MULUGETA PRN Reason: Protocol Last Admin: 01/06/18 22:59 Dose: Not Given Fluticasone Propionate (Flonase) 1 actuation NS DAILY ON [facility] OF [facility] Last Admin: 01/06/18 09:34 Dose: Not Given Pantoprazole Sodium (Protonix 40mg Ivpb) 40 mg in 100 mls @ 20 mls/hr IVPB .Q5H [facility] Last Admin: 01/07/18 09:21 Dose: 20 mls/hr Sodium Bicarbonate 100 meq/ (Dextrose/Sodium Chloride) 1,100 mls @ 100 mls/hr IV .Q11H [facility] Last Admin: 01/07/18 04:18 Dose: 100 mls/hr Dopamine HCl/Dextrose (Dopamine 400mg/250ml D5w) 400 mg in 250 mls @ 10.206 mls /hr IV .Q24H PRN; Protocol; 5 MCG/KG/MIN PRN Reason: TITRATE PER MD ORDER Last Titration: 01/07/18 01:50 Dose: 10 mcg/kg/min, 20.412 mls/hr NOREPINEPHRINE BIT/0.9 % NACL (Levophed 4 Mg/ 250 Ml Ns Premixed) 4 mg in 250 mls @ 15 mls/hr IV .Q39S30L PRN; Protocol; 4 MCG/MIN PRN Reason: TITRATE PER MD ORDER Last Titration: 01/07/18 05:00 Dose: 12 mcg/min, 45 mls/hr Meropenem 500 mg/ Sodium (Chloride) 50 mls @ 100 mls/hr IVPB Q12 [facility]GET[facility] PRN Reason: Protocol Stop: 01/14/18 08:31 Vancomycin HCl 2 gm/ Sodium (Chloride) 500 mls @ 170 mls/hr IVPB ONCE ONE PRN Reason: Protocol Stop: 01/07/18 11:24 Fentanyl Citrate (Fentanyl Citrate/Sodium Chloride 1 Mg/100 Ml) 1,000 mcg in 100 mls @ 2 mls/hr IV .Q24H PRN; Protocol; 20 MCG/HR PRN Reason: TITRATE PER MD ORDER Insulin Human Regular (Humulin R) 5 units IVP STAT STA Stop: 01/07/18 11:05 Isosorbide Mononitrate (Imdur) 30 mg PO DAILY [facility]GET[facility] Levalbuterol HCl (Xopenex) 1.25 mg IH [id number] [facility] Last Admin: 01/07/18 08:02 Dose: 1.25 mg Metoprolol Tartrate (Lopressor) 2.5 mg IV Q8H [facility] Ondansetron HCl (Zofran Inj) 4 mg IVP Q8 PRN PRN Reason: Nausea/Vomiting Last Admin: 01/06/18 14:31 Dose: 4 mg Pantoprazole Sodium (Protonix Inj) 40 mg IVP DAILY ON [facility] Primidone (Mysoline) 50 mg PO DAILY ON [facility] Last Admin: 01/06/18 09:34 Dose: 50 mg Ramipril (Altace) 2.5 mg PO DAILY ON [facility] - Labs Labs: 01/07/18 09:30 01/07/18 10:00 PT 22.9 SECONDS (9.4-12.5) H 01/07/18 01:05 INR 1.98 01/07/18 01:05 APTT 29.5 Seconds (25.1-36.5) 01/07/18 01:05 - Constitutional Appears: Chronically Ill, Other (intubated, sedated) - Head Exam Head Exam: NORMAL INSPECTION - ENT Exam Additional comments: ET tube in place - Respiratory Exam Respiratory Exam: Decreased Breath Sounds - Cardiovascular Exam Cardiovascular Exam: +S1, +S2 - GI/Abdominal Exam GI & Abdominal Exam: Soft. absent: Tenderness Assessment and Plan - Assessment and Plan (Free Text) Plan: Assessment Severe sepsis with shock and multiorgan failure (shock liver and acute renal failure, probably combination of cadiogenic shock with myocardial ischemia or NSTEMI and sepsis) with VDRF after PEA R/O acute coronary event, on top of lower lobe healthcare-associated pneumonia with possible gram positive cocci and /or gram negative bacilli and/or atypical organisms COPD Mckeon's esophagus chronic CHF CAD atrial fibrillation COPD Plan will continue Doxycycline, given a dose of a dose of IV Vancomycin and continue Merrem day 2 pending repeat blood, sputum cx from yesterday will continue to monitor clinically overall prognosis is poor and family is discussing with ICU team regarding terminal extubation
--- NOTE | 2018-01-08 12:40 | RAD ---
Date of service: 01/08/2018 HISTORY: f/u COMPARISON: Comparison chest dated 04/16 FINDINGS: In situ ETT, tip of which lies approximately 4 cm above stacie. NGT is present, tip of which overlies left upper -mid abdomen. Right IJ central line with tip in the SVC unchanged LUNGS: Interval progression infiltrate changes throughout the left lung. There is also a left-sided effusion. Right lower lobe opacification consistent with some combination of atelectasis/ infiltrate and right-sided effusion. PLEURA: No significant pleural effusion identified, no pneumothorax apparent. CARDIOVASCULAR: Normal. OSSEOUS STRUCTURES: No significant abnormalities. VISUALIZED UPPER ABDOMEN: Normal. OTHER FINDINGS: None. IMPRESSION: Support lines and tubes as above. Interval progression infiltrate changes throughout the left lung. There is also a left-sided effusion. Right lower lobe opacification consistent with some combination of atelectasis/ infiltrate and right-sided effusion.
--- NOTE | 2018-01-08 13:50 | CP.PCM.PRO ---
Pronouncement of Note - Clinical Findings Physical Exam: No Response Verbal/Painful Stimuli, Absent Peripheral Pulses{ Carotid & Femoral}, Absent Heart & Breath Sounds, No Pupillary Light Reflex, No Corneal Reflex, Pupils Fixed & Dilated, Absence of Vital Signs - Pronouncement Time Time of Pronouncement of : 12:19 - Notifications Pronouncement Notifications: Family Notified, Atending Notified Director Of In Service Education Notified: No - Autopsy Autopsy Requested: No [place] [id number]
[2018-01-08 14:01] VITALS: BP 169/19; PULSE 35; RESP 16; TEMP 96.8; O2SAT 92
--- NOTE | 2018-01-08 14:02 | CP.CCUPN ---
<Semaj Smart - Last Filed: 01/08/18 13:52> CCU Subjective - Physician Review Events Since Last Encounter (Free Text): Patient seen and examined at bedside, no acute overnight events, patient history limited 2/2 intubation status CCU Objective - Vital Signs / Intake & Output Intake and Output (Last 8hrs): Intake & Output 01/07/18 01/08/18 01/08/18 22:59 06:59 14:59 Intake Total 4185 3650 30 Output Total 300 30 Balance 3885 3620 30 Intake: IV 3290 3650 30 NaBi 1200 Right Internal Jugular 2850 abx 100 dopamine 240 fentanyl 120 levo 900 protonix 240 Blood Product 895 Output: Gastric Amount 300 25 Stomach 300 25 Urine 0 5 Urine, Voided 0 5 Other: # Bowel Movements 0 - Physical Exam Head: Positive for: Atraumatic, Normocephalic Pupils: Positive for: PERRL Extroacular Muscles: Positive for: EOMI Conjunctiva: Positive for: Normal Mouth: Positive for: Dry Nose (Internal): Positive for: Normal Inspection Neck: Positive for: Trachea Midline Respiratory/Chest: Positive for: Clear to Auscultation, Good Air Exchange, Tachypneic. Negative for: Respiratory Distress, Accessory Muscle Use Cardiovascular: Positive for: Normal S1, S2, Peripheal Pulses Present, Tachycardic. Negative for: Murmurs Abdomen: Negative for: Tenderness, Distention, Peritoneal Signs Back: Positive for: Normal Inspection Upper Extremity: Positive for: Normal Inspection. Negative for: Cyanosis, Edema Lower Extremity: Positive for: Normal Inspection. Negative for: Edema Neurological: Positive for: Other (sedated, intubated) Skin: Positive for: Dry, Pale. Negative for: Rashes Psychiatric: Positive for: Other (sedated, intubated) - Medications Active Medications: Active Medications Generic Name Dose Route Start Last Admin Trade Name Freq PRN Reason Stop Dose Admin Albuterol/Ipratropium 3 ml 01/03/18 08:27 01/03/18 08:35 Duoneb 3 Mg/0.5 Mg (3 Ml) Ud IH 3 ml Q2H PRN Administration Shortness of Breath Alprazolam 0.25 mg 01/03/18 10:00 01/07/18 17:34 Xanax PO 01/10/18 10:01 Not Given BID MULUGETA Protocol Atorvastatin Calcium 20 mg 01/02/18 22:30 01/07/18 22:05 Lipitor PO Not Given HS MULUGETA Budesonide 0.5 mg 01/03/18 20:00 01/08/18 08:22 Pulmicort Respules IH 0.5 mg [id number] MULUGETA Administration Docusate Sodium 100 mg 01/02/18 22:30 01/07/18 17:33 Colace PO Not Given BID MULUGETA Fluticasone Propionate 1 actuation 01/03/18 10:00 01/07/18 15:57 Flonase NS Not Given DAILY MULUGETA Pantoprazole Sodium 40 mg in 100 mls @ 20 mls/hr 01/07/18 01:30 01/08/18 04: 51 Protonix 40mg Ivpb IVPB 20 mls/hr .Q5H MULUGETA Administration Sodium Bicarbonate 100 meq/ 1,100 mls @ 100 mls/hr 01/07/18 02:45 01/08/18 06 :38 Dextrose/Sodium Chloride IV 100 mls/hr .Q11H MULUGETA Administration Dopamine HCl/Dextrose 400 mg in 250 mls @ 10.206 mls/hr 01/07/18 01:40 06:01 Dopamine 400mg/250ml D5w IV 10 mcg/kg/min .Q24H PRN 20.412 mls/hr TITRATE PER MD ORDER Administration Protocol 5 MCG/KG/MIN NOREPINEPHRINE BIT/0.9 % NACL 4 mg in 250 mls @ 15 mls/hr 01/07/18 02:00 05/16 06:35 Levophed 4 Mg/ 250 Ml Ns Premixed IV 25 mcg/min .[id number] PRN 93.75 mls/hr TITRATE PER MD ORDER Administration Protocol 4 MCG/MIN Meropenem 500 mg/ Sodium 50 mls @ 100 mls/hr 01/07/18 08:30 01/07/18 22:02 Chloride IVPB 01/14/18 08:31 100 mls/hr Q12 MULUGETA Administration Protocol Fentanyl Citrate 1,000 mcg in 100 mls @ 2 mls/hr 01/07/18 09:25 01/08/18 06: 38 Fentanyl Citrate/Sodium Chloride 1 Mg/100 Ml IV 100 mcg/hr .Q24H PRN 10 mls/hr TITRATE PER MD ORDER Administration Protocol 20 MCG/HR Morphine Sulfate 30 mls @ 2 mls/hr 01/07/18 18:44 01/08/18 10:15 Morphine [employer] 1 Mg/Ml IV 2 mg/hr PRN MULUGETA 2 mls/hr Protocol Administration 2 MG/HR Doxycycline Hyclate 100 mg/ 100 mls @ 100 mls/hr 01/08/18 10:00 Sodium Chloride IVPB 01/15/18 10:01 Q12 MULUGETA Protocol Levalbuterol HCl 1.25 mg 01/06/18 08:00 01/08/18 08:22 Xopenex IH 1.25 mg [id number] MULUGETA Administration Metoprolol Tartrate 2.5 mg 01/07/18 10:00 01/08/18 02:46 Lopressor IV Not Given Q8H MULUGETA Ondansetron HCl 4 mg 01/03/18 10:46 01/06/18 14:31 Zofran Inj IVP 4 mg Q8 PRN Administration Nausea/Vomiting Pantoprazole Sodium 40 mg 01/07/18 10:00 Protonix Inj IVP DAILY [facility] Primidone 50 mg 01/03/18 10:00 01/07/18 15:57 Mysoline PO Not Given DAILY [facility] Ramipril 2.5 mg 01/05/18 10:00 Altace PO DAILY [facility] - Patient Studies Lab Studies: Microbiology Studies 01/07/18 09:30 Blood Culture - Preliminary Blood-Venous NO GROWTH AFTER 24 HOURS 01/07/18 09:00 Blood Culture - Preliminary Blood-Venous NO GROWTH AFTER 24 HOURS 01/03/18 17:13 Blood Culture - Preliminary Blood NO GROWTH AFTER 4 DAYS 01/03/18 17:13 Blood Culture - Preliminary Blood NO GROWTH AFTER 4 DAYS Lab Studies 01/08/18 01/08/18 01/08/18 Range/Units 06:00 06:00 05:00 WBC 19.8 H (4.5-11.0) 10^3/ul RBC 2.64 L (3.5-6.1) 10^6/uL Hgb 7.8 L (12.0-16.0) g/dL Hct 27.0 L (36.0-48.0) % MCV 102.3 D (80.0-105.0) fl MCH 29.5 (25.0-35.0) pg MCHC 28.9 L (31.0-37.0) g/dl RDW 17.6 H (11.5-14.5) % Plt Count 36 L* (120.0-450.0) 10^3/uL MPV 11.6 H (7.0-11.0) fl Gran % 85.9 H (50.0-68.0) % Lymph % (Auto) 8.0 L (22.0-35.0) % [place] % (Auto) 6.0 (1.0-6.0) % Eos % (Auto) 0.0 L (1.5-5.0) % Baso % (Auto) 0.1 (0.0-3.0) % Gran # 17.00 H (1.4-6.5) Lymph # (Auto) 1.6 (1.2-3.4) [place] # (Auto) 1.2 H (0.1-0.6) Eos # (Auto) 0.0 (0.0-0.7) Baso # (Auto) 0.01 (0.0-2.0) K/mm3 PT (9.4-12.5) SECONDS INR pCO2 38 (35-45) mm/Hg pO2 216.0 H (80-100) mm/Hg HCO3 7.8 L* (21-28) mmol/L ABG pH 6.92 L* (7.35-7.45) ABG Total CO2 9.0 L (22-28) mmol.L ABG O2 Saturation 100.7 H (95-98) % ABG O2 Content 11.1 L (15-23) ML/dl ABG Base Excess -23.2 L (-2.0-3.0) mmol/L ABG Hemoglobin 7.7 L (11.7-17.4) g/dL ABG Carboxyhemoglobin 1.8 H (0.5-1.5) % POC ABG HHb (Measured) -0.7 L (0-5) % ABG Methemoglobin 1.2 (0.0-3.0) % ABG O2 Capacity 11.0 L (16-24) mL/dl Hgb O2 Saturation 97.7 (95.0-98.0) % FiO2 100.0 % Sodium 148 (132-148) mmol/L Potassium 8.0 H* D (3.6-5.0) mmol/L Chloride 109 H (98-107) mmol/L Carbon Dioxide 10 L (21-33) mmol/L Anion Gap 37 H (10-20) BUN 43 H (7-21) mg/dL Creatinine 3.0 H (0.7-1.2) mg/dl Est GFR ( Amer) 18 Est GFR (Non-Af Amer) 15 Random Glucose 113 H (70-110) mg/dL Lactic Acid (0.7-2.1) mmol/L Calcium 6.5 L* (8.4-10.5) mg/dL Phosphorus 13.2 H (2.5-4.5) mg/dL Magnesium 2.1 (1.7-2.2) mg/dL Total Bilirubin 3.2 H (0.2-1.3) mg/dL AST 1524 H (14-36) U/L ALT 4120 H (7-56) U/L Alkaline Phosphatase 226 H D (33-130) U/L Troponin I ng/mL Total Protein 4.2 L (5.8-8.3) g/dL Albumin 2.1 L (3.0-4.8) g/dL Globulin 2.1 gm/dL Albumin/Globulin Ratio 1.0 L (1.1-1.8) Procalcitonin (0.19-0.49) NG/ML 01/07/18 01/07/18 01/07/18 Range/Units 15:47 15:47 15:47 WBC 22.5 H (4.5-11.0) 10^3/ul RBC 3.34 L (3.5-6.1) 10^6/uL Hgb 9.6 L (12.0-16.0) g/dL Hct 31.3 L (36.0-48.0) % MCV 93.7 (80.0-105.0) fl MCH 28.7 (25.0-35.0) pg MCHC 30.7 L (31.0-37.0) g/dl RDW 15.9 H (11.5-14.5) % Plt Count 53 L (120.0-450.0) 10^3/uL MPV 11.9 H (7.0-11.0) fl Gran % 89.8 H (50.0-68.0) % Lymph % (Auto) 5.0 L (22.0-35.0) % [place] % (Auto) 5.2 (1.0-6.0) % Eos % (Auto) 0.0 L (1.5-5.0) % Baso % (Auto) 0.0 (0.0-3.0) % Gran # 20.21 H (1.4-6.5) Lymph # (Auto) 1.1 L (1.2-3.4) [place] # (Auto) 1.2 H (0.1-0.6) Eos # (Auto) 0.0 (0.0-0.7) Baso # (Auto) 0.01 (0.0-2.0) K/mm3 PT 28.4 H (9.4-12.5) SECONDS INR 2.45 pCO2 (35-45) mm/Hg pO2 (80-100) mm/Hg HCO3 (21-28) mmol/L ABG pH (7.35-7.45) ABG Total CO2 (22-28) mmol.L ABG O2 Saturation (95-98) % ABG O2 Content (15-23) ML/dl ABG Base Excess (-2.0-3.0) mmol/L ABG Hemoglobin (11.7-17.4) g/dL ABG Carboxyhemoglobin (0.5-1.5) % POC ABG HHb (Measured) (0-5) % ABG Methemoglobin (0.0-3.0) % ABG O2 Capacity (16-24) mL/dl Hgb O2 Saturation (95.0-98.0) % FiO2 % Sodium 143 (132-148) mmol/L Potassium 6.5 H* (3.6-5.0) mmol/L Chloride 104 (98-107) mmol/L Carbon Dioxide 12 L (21-33) mmol/L Anion Gap 34 H (10-20) BUN 49 H (7-21) mg/dL Creatinine 2.4 H (0.7-1.2) mg/dl Est GFR ( Amer) 23 Est GFR (Non-Af Amer) 19 Random Glucose 146 H (70-110) mg/dL Lactic Acid (0.7-2.1) mmol/L Calcium 7.9 L (8.4-10.5) mg/dL Phosphorus (2.5-4.5) mg/dL Magnesium (1.7-2.2) mg/dL Total Bilirubin 3.5 H (0.2-1.3) mg/dL AST 03584 H (14-36) U/L ALT 4075 H (7-56) U/L Alkaline Phosphatase 185 H (33-130) U/L Troponin I ng/mL Total Protein 5.4 L (5.8-8.3) g/dL Albumin 2.8 L (3.0-4.8) g/dL Globulin 2.6 gm/dL Albumin/Globulin Ratio 1.1 (1.1-1.8) Procalcitonin (0.19-0.49) NG/ML 01/07/18 01/07/18 01/07/18 Range/Units 15:47 14:05 13:00 WBC (4.5-11.0) 10^3/ul RBC (3.5-6.1) 10^6/uL Hgb (12.0-16.0) g/dL Hct (36.0-48.0) % MCV (80.0-105.0) fl MCH (25.0-35.0) pg MCHC (31.0-37.0) g/dl RDW (11.5-14.5) % Plt Count (120.0-450.0) 10^3/uL MPV (7.0-11.0) fl Gran % (50.0-68.0) % Lymph % (Auto) (22.0-35.0) % [place] % (Auto) (1.0-6.0) % Eos % (Auto) (1.5-5.0) % Baso % (Auto) (0.0-3.0) % Gran # (1.4-6.5) Lymph # (Auto) (1.2-3.4) [place] # (Auto) (0.1-0.6) Eos # (Auto) (0.0-0.7) Baso # (Auto) (0.0-2.0) K/mm3 PT (9.4-12.5) SECONDS INR pCO2 19 L* (35-45) mm/Hg pO2 245.0 H (80-100) mm/Hg HCO3 5.8 L* (21-28) mmol/L ABG pH 7.09 L* (7.35-7.45) ABG Total CO2 6.4 L (22-28) mmol.L ABG O2 Saturation 100.6 H (95-98) % ABG O2 Content 13.8 L (15-23) ML/dl ABG Base Excess -22.2 L (-2.0-3.0) mmol/L ABG Hemoglobin 9.6 L (11.7-17.4) g/dL ABG Carboxyhemoglobin 1.7 H (0.5-1.5) % POC ABG HHb (Measured) -0.6 L (0-5) % ABG Methemoglobin 1.1 (0.0-3.0) % ABG O2 Capacity 13.7 L (16-24) mL/dl Hgb O2 Saturation 97.8 (95.0-98.0) % FiO2 100.0 % Sodium (132-148) mmol/L Potassium 6.8 H* (3.6-5.0) mmol/L Chloride (98-107) mmol/L Carbon Dioxide (21-33) mmol/L Anion Gap (10-20) BUN (7-21) mg/dL Creatinine (0.7-1.2) mg/dl Est GFR ( Amer) Est GFR (Non-Af Amer) Random Glucose (70-110) mg/dL Lactic Acid 13.9 H* (0.7-2.1) mmol/L Calcium (8.4-10.5) mg/dL Phosphorus (2.5-4.5) mg/dL Magnesium (1.7-2.2) mg/dL Total Bilirubin (0.2-1.3) mg/dL AST 94558 H (14-36) U/L ALT 3727 H (7-56) U/L Alkaline Phosphatase (33-130) U/L Troponin I 0.72 H* D ng/mL Total Protein (5.8-8.3) g/dL Albumin (3.0-4.8) g/dL Globulin gm/dL Albumin/Globulin Ratio (1.1-1.8) Procalcitonin (0.19-0.49) NG/ML 01/07/18 01/04/18 Range/Units 09:30 06:05 WBC (4.5-11.0) 10^3/ul RBC (3.5-6.1) 10^6/uL Hgb (12.0-16.0) g/dL Hct (36.0-48.0) % MCV (80.0-105.0) fl MCH (25.0-35.0) pg MCHC (31.0-37.0) g/dl RDW (11.5-14.5) % Plt Count (120.0-450.0) 10^3/uL MPV (7.0-11.0) fl Gran % (50.0-68.0) % Lymph % (Auto) (22.0-35.0) % [place] % (Auto) (1.0-6.0) % Eos % (Auto) (1.5-5.0) % Baso % (Auto) (0.0-3.0) % Gran # (1.4-6.5) Lymph # (Auto) (1.2-3.4) [place] # (Auto) (0.1-0.6) Eos # (Auto) (0.0-0.7) Baso # (Auto) (0.0-2.0) K/mm3 PT (9.4-12.5) SECONDS INR pCO2 (35-45) mm/Hg pO2 (80-100) mm/Hg HCO3 (21-28) mmol/L ABG pH (7.35-7.45) ABG Total CO2 (22-28) mmol.L ABG O2 Saturation (95-98) % ABG O2 Content (15-23) ML/dl ABG Base Excess (-2.0-3.0) mmol/L ABG Hemoglobin (11.7-17.4) g/dL ABG Carboxyhemoglobin (0.5-1.5) % POC ABG HHb (Measured) (0-5) % ABG Methemoglobin (0.0-3.0) % ABG O2 Capacity (16-24) mL/dl Hgb O2 Saturation (95.0-98.0) % FiO2 % Sodium (132-148) mmol/L Potassium (3.6-5.0) mmol/L Chloride (98-107) mmol/L Carbon Dioxide (21-33) mmol/L Anion Gap (10-20) BUN (7-21) mg/dL Creatinine (0.7-1.2) mg/dl Est GFR ( Amer) Est GFR (Non-Af Amer) Random Glucose (70-110) mg/dL Lactic Acid (0.7-2.1) mmol/L Calcium (8.4-10.5) mg/dL Phosphorus (2.5-4.5) mg/dL Magnesium (1.7-2.2) mg/dL Total Bilirubin (0.2-1.3) mg/dL AST (14-36) U/L ALT (7-56) U/L Alkaline Phosphatase 161 H (33-130) U/L Troponin I ng/mL Total Protein (5.8-8.3) g/dL Albumin (3.0-4.8) g/dL Globulin gm/dL Albumin/Globulin Ratio (1.1-1.8) Procalcitonin 0.86 H (0.19-0.49) NG/ML Laboratory Results - last 24 hr 01/04/18 01/07/18 01/07/18 06:05 09:30 13:00 WBC RBC Hgb Hct MCV MCH MCHC RDW Plt Count MPV Gran % Lymph % (Auto) [place] % (Auto) Eos % (Auto) Baso % (Auto) Gran # Lymph # (Auto) [place] # (Auto) Eos # (Auto) Baso # (Auto) PT INR pCO2 pO2 HCO3 ABG pH ABG Total CO2 ABG O2 Saturation ABG O2 Content ABG Base Excess ABG Hemoglobin ABG Carboxyhemoglobin POC ABG HHb (Measured) ABG Methemoglobin ABG O2 Capacity Hgb O2 Saturation FiO2 Sodium Potassium 6.8 H* Chloride Carbon Dioxide Anion Gap BUN Creatinine Est GFR ( Amer) Est GFR (Non-Af Amer) Random Glucose Lactic Acid Calcium Phosphorus Magnesium [place] 76646 H ALT 3727 H Alkaline Phosphatase 161 H Troponin I 0.72 H* D Total Protein Albumin Globulin Albumin/Globulin Ratio Procalcitonin 0.86 H 01/07/18 01/07/18 01/07/18 14:05 15:47 15:47 WBC RBC Hgb Hct MCV MCH MCHC RDW Plt Count MPV Gran % Lymph % (Auto) [place] % (Auto) Eos % (Auto) Baso % (Auto) Gran # Lymph # (Auto) [place] # (Auto) Eos # (Auto) Baso # (Auto) PT 28.4 H INR 2.45 pCO2 19 L* pO2 245.0 H HCO3 5.8 L* ABG pH 7.09 L* ABG Total CO2 6.4 L ABG O2 Saturation 100.6 H ABG O2 Content 13.8 L ABG Base Excess -22.2 L ABG Hemoglobin 9.6 L ABG Carboxyhemoglobin 1.7 H POC ABG HHb (Measured) -0.6 L ABG Methemoglobin 1.1 ABG O2 Capacity 13.7 L Hgb O2 Saturation 97.8 FiO2 100.0 Sodium Potassium Chloride Carbon Dioxide Anion Gap BUN Creatinine Est GFR ( Amer) Est GFR (Non-Af Amer) Random Glucose Lactic Acid 13.9 H* Calcium Phosphorus Magnesium Total Bilirubin AST ALT Alkaline Phosphatase Troponin I Total Protein Albumin Globulin Albumin/Globulin Ratio Procalcitonin 01/07/18 01/07/18 01/08/18 15:47 15:47 05:00 WBC 22.5 H RBC 3.34 L Hgb 9.6 L Hct 31.3 L MCV 93.7 MCH 28.7 MCHC 30.7 L RDW 15.9 H Plt Count 53 L MPV 11.9 H Gran % 89.8 H Lymph % (Auto) 5.0 L [place] % (Auto) 5.2 Eos % (Auto) 0.0 L Baso % (Auto) 0.0 Gran # 20.21 H Lymph # (Auto) 1.1 L [place] # (Auto) 1.2 H Eos # (Auto) 0.0 Baso # (Auto) 0.01 PT INR pCO2 38 pO2 216.0 H HCO3 7.8 L* ABG pH 6.92 L* ABG Total CO2 9.0 L ABG O2 Saturation 100.7 H ABG O2 Content 11.1 L ABG Base Excess -23.2 L ABG Hemoglobin 7.7 L ABG Carboxyhemoglobin 1.8 H POC ABG HHb (Measured) -0.7 L ABG Methemoglobin 1.2 ABG O2 Capacity 11.0 L Hgb O2 Saturation 97.7 FiO2 100.0 Sodium 143 Potassium 6.5 H* Chloride 104 Carbon Dioxide 12 L Anion Gap 34 H BUN 49 H Creatinine 2.4 H Est GFR ( Amer) 23 Est GFR (Non-Af Amer) 19 Random Glucose 146 H Lactic Acid Calcium 7.9 L Phosphorus Magnesium Total Bilirubin 3.5 H AST 21012 H ALT 4075 H Alkaline Phosphatase 185 H Troponin I Total Protein 5.4 L Albumin 2.8 L Globulin 2.6 Albumin/Globulin Ratio 1.1 Procalcitonin 01/08/18 01/08/18 06:00 06:00 WBC 19.8 H RBC 2.64 L Hgb 7.8 L Hct 27.0 L MCV 102.3 D MCH 29.5 MCHC 28.9 L RDW 17.6 H Plt Count 36 L* MPV 11.6 H Gran % 85.9 H Lymph % (Auto) 8.0 L [place] % (Auto) 6.0 Eos % (Auto) 0.0 L Baso % (Auto) 0.1 Gran # 17.00 H Lymph # (Auto) 1.6 [place] # (Auto) 1.2 H Eos # (Auto) 0.0 Baso # (Auto) 0.01 PT INR pCO2 pO2 HCO3 ABG pH ABG Total CO2 ABG O2 Saturation ABG O2 Content ABG Base Excess ABG Hemoglobin ABG Carboxyhemoglobin POC ABG HHb (Measured) ABG Methemoglobin ABG O2 Capacity Hgb O2 Saturation FiO2 Sodium 148 Potassium 8.0 H* D Chloride 109 H Carbon Dioxide 10 L Anion Gap 37 H BUN 43 H Creatinine 3.0 H Est GFR ( Amer) 18 Est GFR (Non-Af Amer) 15 Random Glucose 113 H Lactic Acid Calcium 6.5 L* Phosphorus 13.2 H Magnesium 2.1 Total Bilirubin 3.2 H AST 1524 H ALT 4120 H Alkaline Phosphatase 226 H D Troponin I Total Protein 4.2 L Albumin 2.1 L Globulin 2.1 Albumin/Globulin Ratio 1.0 L Procalcitonin EKG/Cardiology Studies: Cardiology / EKG Studies 01/07/18 15:00 EKG [ELECTROCARDIOGRAM] Routine Comment: Reason For Exam: elevated troponin Fingerstick Blood Sugar Results: 188 Critical Care Progress Note - Nutrition Nutrition: Nutrition Category Date Time Status NPO Diet [DIET] Diets 08/11/18 Breakfast Ordered Assessment/Plan - Assessment and Plan (Free Text) Assessment: 87 year old female under ICU management for acute hemorrhagic shock likely 2/2 upper GI bleed with multi-organ failure including hypoxic respiratory distress, ALEE, metabolic acidosis, severe transaminitis and demand ischemia. 1. Hx Mckeon's Esophagus 2. Hx COPD 3. Hx CHF 4. Hx CAD s/p CABG ABG done at 14:07 yesterday showed pH of 7.09, pCO2 of 19, pO2 of 245 and bicarb of 5.8 despite several hours of bicarb drip. Given 2 amps INR was elevated at 1.98, 10 units Vitamin K and 2 units FFP administered to reverse INR. At this point, patient is decompensating due to hemorrhagic shock. Spoke with son who consented to DNR/DNI. Plan - At this point will just provide comfort care for patient with Morphine CLIENT HR MANAGER <Lee Quezada - Last Filed: 01/08/18 14:29> CCU Objective - Vital Signs / Intake & Output Vital Signs (Last 4 hours): Vital Signs Temp Pulse Resp BP Pulse Ox 01/08/18 12:30 96.8 F L 01/08/18 12:29 96.8 F L 01/08/18 12:28 96.8 F L 01/08/18 12:27 96.8 F L 92 L 01/08/18 12:26 96.8 F L 88 L 01/08/18 12:25 96.8 F L 93 L 01/08/18 12:24 96.8 F L 88 L 01/08/18 12:23 97.0 F L 86 L 01/08/18 12:22 97.0 F L 96 01/08/18 12:21 97.0 F L 16 97 01/08/18 12:20 97.0 F L 88 L 01/08/18 12:10 97.0 F L 35 L 92 L 01/08/18 12:03 97.0 F L 100 01/08/18 12:02 97.0 F L 72 169/19 H 100 01/08/18 12:00 97.0 F L 63 100 01/08/18 11:56 97.0 F L 100 01/08/18 11:55 97.0 F L 100 01/08/18 11:51 97.0 F L 100 01/08/18 11:50 97.0 F L 100 01/08/18 11:47 97.0 F L 100 01/08/18 11:46 97.0 F L 100 01/08/18 11:43 97.2 F L 100 01/08/18 11:42 97.2 F L 100 01/08/18 11:40 97.2 F L 81 100 01/08/18 11:39 97.2 F L 100 01/08/18 11:30 97.2 F L 88 100 01/08/18 11:29 97.2 F L 100 01/08/18 11:20 97.3 F L 68 100 01/08/18 11:10 97.3 F L 69 100 01/08/18 11:00 97.3 F L 69 100 01/08/18 10:50 97.3 F L 69 100 01/08/18 10:40 97.5 F L 72 100 01/08/18 10:30 97.5 F L 71 100 Intake and Output (Last 8hrs): Intake & Output 01/07/18 01/08/18 01/08/18 22:59 06:59 14:59 Intake Total 4185 3650 30 Output Total 300 30 Balance 3885 3620 30 Intake: IV 3290 3650 30 NaBi 1200 Right Internal Jugular 2850 abx 100 dopamine 240 fentanyl 120 levo 900 protonix 240 Blood Product 895 Output: Gastric Amount 300 25 Stomach 300 25 Urine 0 5 Urine, Voided 0 5 Other: # Bowel Movements 0 - Medications Active Medications: Active Medications Generic Name Dose Route Start Last Admin Trade Name Freq PRN Reason Stop Dose Admin Albuterol/Ipratropium 3 ml 01/03/18 08:27 01/03/18 08:35 Duoneb 3 Mg/0.5 Mg (3 Ml) Ud IH 3 ml Q2H PRN Administration Shortness of Breath Alprazolam 0.25 mg 01/03/18 10:00 01/07/18 17:34 Xanax PO 01/10/18 10:01 Not Given BID MULUGETA Protocol Atorvastatin Calcium 20 mg 01/02/18 22:30 01/07/18 22:05 Lipitor PO Not Given HS MULUGETA Budesonide 0.5 mg 01/03/18 20:00 01/08/18 08:22 Pulmicort Respules IH 0.5 mg [id number] MULUGETA Administration Docusate Sodium 100 mg 01/02/18 22:30 01/07/18 17:33 Colace PO Not Given BID MULUGETA Fluticasone Propionate 1 actuation 01/03/18 10:00 01/07/18 15:57 Flonase NS Not Given DAILY MULUGETA Pantoprazole Sodium 40 mg in 100 mls @ 20 mls/hr 01/07/18 01:30 01/08/18 04: 51 Protonix 40mg Ivpb IVPB 20 mls/hr .Q5H MULUGETA Administration Sodium Bicarbonate 100 meq/ 1,100 mls @ 100 mls/hr 01/07/18 02:45 01/08/18 06 :38 Dextrose/Sodium Chloride IV 100 mls/hr .Q11H [facility] Administration Dopamine HCl/Dextrose 400 mg in 250 mls @ 10.206 mls/hr 01/07/18 01:40 06:01 Dopamine 400mg/250ml D5w IV 10 mcg/kg/min .Q24H PRN 20.412 mls/hr TITRATE PER MD ORDER Administration Protocol 5 MCG/KG/MIN NOREPINEPHRINE BIT/0.9 % NACL 4 mg in 250 mls @ 15 mls/hr 01/07/18 02:00 05/16 06:35 Levophed 4 Mg/ 250 Ml Ns Premixed IV 25 mcg/min .[id number] PRN 93.75 mls/hr TITRATE PER MD ORDER Administration Protocol 4 MCG/MIN Meropenem 500 mg/ Sodium 50 mls @ 100 mls/hr 01/07/18 08:30 01/07/18 22:02 Chloride IVPB 01/14/18 08:31 100 mls/hr Q12 [facility] Administration Protocol Fentanyl Citrate 1,000 mcg in 100 mls @ 2 mls/hr 01/07/18 09:25 01/08/18 06: 38 Fentanyl Citrate/Sodium Chloride 1 Mg/100 Ml IV 100 mcg/hr .Q24H PRN 10 mls/hr TITRATE PER MD ORDER Administration Protocol 20 MCG/HR Morphine Sulfate 30 mls @ 2 mls/hr 01/07/18 18:44 01/08/18 10:15 Morphine [employer] 1 Mg/Ml IV 2 mg/hr PRN MULUGETA 2 mls/hr Protocol Administration 2 MG/HR Doxycycline Hyclate 100 mg/ 100 mls @ 100 mls/hr 01/08/18 10:00 Sodium Chloride IVPB 01/15/18 10:01 Q12 [facility] Protocol Levalbuterol HCl 1.25 mg 01/06/18 08:00 01/08/18 08:22 Xopenex IH 1.25 mg [id number] [facility]A Administration Metoprolol Tartrate 2.5 mg 01/07/18 10:00 01/08/18 02:46 Lopressor IV Not Given Q8H [facility] Ondansetron HCl 4 mg 01/03/18 10:46 01/06/18 14:31 Zofran Inj IVP 4 mg Q8 PRN Administration Nausea/Vomiting Pantoprazole Sodium 40 mg 01/07/18 10:00 Protonix Inj IVP DAILY [facility] Primidone 50 mg 01/03/18 10:00 01/07/18 15:57 Mysoline PO Not Given DAILY [facility] Ramipril 2.5 mg 01/05/18 10:00 Altace PO DAILY [facility] - Patient Studies Lab Studies: Microbiology Studies 01/07/18 06:55 MRSA Culture (Admit) - Final Naris MRSA NOT DETECTED 01/07/18 09:30 Blood Culture - Preliminary Blood-Venous NO GROWTH AFTER 24 HOURS 01/07/18 09:00 Blood Culture - Preliminary Blood-Venous NO GROWTH AFTER 24 HOURS 01/03/18 17:13 Blood Culture - Preliminary Blood NO GROWTH AFTER 4 DAYS 01/03/18 17:13 Blood Culture - Preliminary Blood NO GROWTH AFTER 4 DAYS Lab Studies 01/08/18 01/08/18 01/08/18 Range/Units 06:00 06:00 05:00 WBC 19.8 H (4.5-11.0) 10^3/ul RBC 2.64 L (3.5-6.1) 10^6/uL Hgb 7.8 L (12.0-16.0) g/dL Hct 27.0 L (36.0-48.0) % MCV 102.3 D (80.0-105.0) fl MCH 29.5 (25.0-35.0) pg MCHC 28.9 L (31.0-37.0) g/dl RDW 17.6 H (11.5-14.5) % Plt Count 36 L* (120.0-450.0) 10^3/uL MPV 11.6 H (7.0-11.0) fl Gran % 85.9 H (50.0-68.0) % Lymph % (Auto) 8.0 L (22.0-35.0) % [place] % (Auto) 6.0 (1.0-6.0) % Eos % (Auto) 0.0 L (1.5-5.0) % Baso % (Auto) 0.1 (0.0-3.0) % Gran # 17.00 H (1.4-6.5) Lymph # (Auto) 1.6 (1.2-3.4) [place] # (Auto) 1.2 H (0.1-0.6) Eos # (Auto) 0.0 (0.0-0.7) Baso # (Auto) 0.01 (0.0-2.0) K/mm3 PT (9.4-12.5) SECONDS INR pCO2 38 (35-45) mm/Hg pO2 216.0 H (80-100) mm/Hg HCO3 7.8 L* (21-28) mmol/L ABG pH 6.92 L* (7.35-7.45) ABG Total CO2 9.0 L (22-28) mmol.L ABG O2 Saturation 100.7 H (95-98) % ABG O2 Content 11.1 L (15-23) ML/dl ABG Base Excess -23.2 L (-2.0-3.0) mmol/L ABG Hemoglobin 7.7 L (11.7-17.4) g/dL ABG Carboxyhemoglobin 1.8 H (0.5-1.5) % POC ABG HHb (Measured) -0.7 L (0-5) % ABG Methemoglobin 1.2 (0.0-3.0) % ABG O2 Capacity 11.0 L (16-24) mL/dl Hgb O2 Saturation 97.7 (95.0-98.0) % FiO2 100.0 % Sodium 148 (132-148) mmol/L Potassium 8.0 H* D (3.6-5.0) mmol/L Chloride 109 H (98-107) mmol/L Carbon Dioxide 10 L (21-33) mmol/L Anion Gap 37 H (10-20) BUN 43 H (7-21) mg/dL Creatinine 3.0 H (0.7-1.2) mg/dl Est GFR ( Amer) 18 Est GFR (Non-Af Amer) 15 Random Glucose 113 H (70-110) mg/dL Lactic Acid (0.7-2.1) mmol/L Calcium 6.5 L* (8.4-10.5) mg/dL Phosphorus 13.2 H (2.5-4.5) mg/dL Magnesium 2.1 (1.7-2.2) mg/dL Total Bilirubin 3.2 H (0.2-1.3) mg/dL AST 1524 H (14-36) U/L ALT 4120 H (7-56) U/L Alkaline Phosphatase 226 H D (33-130) U/L Total Protein 4.2 L (5.8-8.3) g/dL Albumin 2.1 L (3.0-4.8) g/dL Globulin 2.1 gm/dL Albumin/Globulin Ratio 1.0 L (1.1-1.8) Procalcitonin (0.19-0.49) NG/ML 01/07/18 01/07/18 01/07/18 Range/Units 15:47 15:47 15:47 WBC 22.5 H (4.5-11.0) 10^3/ul RBC 3.34 L (3.5-6.1) 10^6/uL Hgb 9.6 L (12.0-16.0) g/dL Hct 31.3 L (36.0-48.0) % MCV 93.7 (80.0-105.0) fl MCH 28.7 (25.0-35.0) pg MCHC 30.7 L (31.0-37.0) g/dl RDW 15.9 H (11.5-14.5) % Plt Count 53 L (120.0-450.0) 10^3/uL MPV 11.9 H (7.0-11.0) fl Gran % 89.8 H (50.0-68.0) % Lymph % (Auto) 5.0 L (22.0-35.0) % [place] % (Auto) 5.2 (1.0-6.0) % Eos % (Auto) 0.0 L (1.5-5.0) % Baso % (Auto) 0.0 (0.0-3.0) % Gran # 20.21 H (1.4-6.5) Lymph # (Auto) 1.1 L (1.2-3.4) [place] # (Auto) 1.2 H (0.1-0.6) Eos # (Auto) 0.0 (0.0-0.7) Baso # (Auto) 0.01 (0.0-2.0) K/mm3 PT 28.4 H (9.4-12.5) SECONDS INR 2.45 pCO2 (35-45) mm/Hg pO2 (80-100) mm/Hg HCO3 (21-28) mmol/L ABG pH (7.35-7.45) ABG Total CO2 (22-28) mmol.L ABG O2 Saturation (95-98) % ABG O2 Content (15-23) ML/dl ABG Base Excess (-2.0-3.0) mmol/L ABG Hemoglobin (11.7-17.4) g/dL ABG Carboxyhemoglobin (0.5-1.5) % POC ABG HHb (Measured) (0-5) % ABG Methemoglobin (0.0-3.0) % ABG O2 Capacity (16-24) mL/dl Hgb O2 Saturation (95.0-98.0) % FiO2 % Sodium 143 (132-148) mmol/L Potassium 6.5 H* (3.6-5.0) mmol/L Chloride 104 (98-107) mmol/L Carbon Dioxide 12 L (21-33) mmol/L Anion Gap 34 H (10-20) BUN 49 H (7-21) mg/dL Creatinine 2.4 H (0.7-1.2) mg/dl Est GFR ( Amer) 23 Est GFR (Non-Af Amer) 19 Random Glucose 146 H (70-110) mg/dL Lactic Acid (0.7-2.1) mmol/L Calcium 7.9 L (8.4-10.5) mg/dL Phosphorus (2.5-4.5) mg/dL Magnesium (1.7-2.2) mg/dL Total Bilirubin 3.5 H (0.2-1.3) mg/dL AST 32765 H (14-36) U/L ALT 4075 H (7-56) U/L Alkaline Phosphatase 185 H (33-130) U/L Total Protein 5.4 L (5.8-8.3) g/dL Albumin 2.8 L (3.0-4.8) g/dL Globulin 2.6 gm/dL Albumin/Globulin Ratio 1.1 (1.1-1.8) Procalcitonin (0.19-0.49) NG/ML 01/07/18 01/07/18 01/07/18 Range/Units 15:47 13:00 09:30 WBC (4.5-11.0) 10^3/ul RBC (3.5-6.1) 10^6/uL Hgb (12.0-16.0) g/dL Hct (36.0-48.0) % MCV (80.0-105.0) fl MCH (25.0-35.0) pg MCHC (31.0-37.0) g/dl RDW (11.5-14.5) % Plt Count (120.0-450.0) 10^3/uL MPV (7.0-11.0) fl Gran % (50.0-68.0) % Lymph % (Auto) (22.0-35.0) % [place] % (Auto) (1.0-6.0) % Eos % (Auto) (1.5-5.0) % Baso % (Auto) (0.0-3.0) % Gran # (1.4-6.5) Lymph # (Auto) (1.2-3.4) [place] # (Auto) (0.1-0.6) Eos # (Auto) (0.0-0.7) Baso # (Auto) (0.0-2.0) K/mm3 PT (9.4-12.5) SECONDS INR pCO2 (35-45) mm/Hg pO2 (80-100) mm/Hg HCO3 (21-28) mmol/L ABG pH (7.35-7.45) ABG Total CO2 (22-28) mmol.L ABG O2 Saturation (95-98) % ABG O2 Content (15-23) ML/dl ABG Base Excess (-2.0-3.0) mmol/L ABG Hemoglobin (11.7-17.4) g/dL ABG Carboxyhemoglobin (0.5-1.5) % POC ABG HHb (Measured) (0-5) % ABG Methemoglobin (0.0-3.0) % ABG O2 Capacity (16-24) mL/dl Hgb O2 Saturation (95.0-98.0) % FiO2 % Sodium (132-148) mmol/L Potassium (3.6-5.0) mmol/L Chloride (98-107) mmol/L Carbon Dioxide (21-33) mmol/L Anion Gap (10-20) BUN (7-21) mg/dL Creatinine (0.7-1.2) mg/dl Est GFR ( Amer) Est GFR (Non-Af Amer) Random Glucose (70-110) mg/dL Lactic Acid 13.9 H* (0.7-2.1) mmol/L Calcium (8.4-10.5) mg/dL Phosphorus (2.5-4.5) mg/dL Magnesium (1.7-2.2) mg/dL Total Bilirubin (0.2-1.3) mg/dL AST 60224 H (14-36) U/L ALT (7-56) U/L Alkaline Phosphatase (33-130) U/L Total Protein (5.8-8.3) g/dL Albumin (3.0-4.8) g/dL Globulin gm/dL Albumin/Globulin Ratio (1.1-1.8) Procalcitonin 0.86 H (0.19-0.49) NG/ML 01/04/18 Range/Units 06:05 WBC (4.5-11.0) 10^3/ul RBC (3.5-6.1) 10^6/uL Hgb (12.0-16.0) g/dL Hct (36.0-48.0) % MCV (80.0-105.0) fl MCH (25.0-35.0) pg MCHC (31.0-37.0) g/dl RDW (11.5-14.5) % Plt Count (120.0-450.0) 10^3/uL MPV (7.0-11.0) fl Gran % (50.0-68.0) % Lymph % (Auto) (22.0-35.0) % [place] % (Auto) (1.0-6.0) % Eos % (Auto) (1.5-5.0) % Baso % (Auto) (0.0-3.0) % Gran # (1.4-6.5) Lymph # (Auto) (1.2-3.4) [place] # (Auto) (0.1-0.6) Eos # (Auto) (0.0-0.7) Baso # (Auto) (0.0-2.0) K/mm3 PT (9.4-12.5) SECONDS INR pCO2 (35-45) mm/Hg pO2 (80-100) mm/Hg HCO3 (21-28) mmol/L ABG pH (7.35-7.45) ABG Total CO2 (22-28) mmol.L ABG O2 Saturation (95-98) % ABG O2 Content (15-23) ML/dl ABG Base Excess (-2.0-3.0) mmol/L ABG Hemoglobin (11.7-17.4) g/dL ABG Carboxyhemoglobin (0.5-1.5) % POC ABG HHb (Measured) (0-5) % ABG Methemoglobin (0.0-3.0) % ABG O2 Capacity (16-24) mL/dl Hgb O2 Saturation (95.0-98.0) % FiO2 % Sodium (132-148) mmol/L Potassium (3.6-5.0) mmol/L Chloride (98-107) mmol/L Carbon Dioxide (21-33) mmol/L Anion Gap (10-20) BUN (7-21) mg/dL Creatinine (0.7-1.2) mg/dl Est GFR ( Amer) Est GFR (Non-Af Amer) Random Glucose (70-110) mg/dL Lactic Acid (0.7-2.1) mmol/L Calcium (8.4-10.5) mg/dL Phosphorus (2.5-4.5) mg/dL Magnesium (1.7-2.2) mg/dL Total Bilirubin (0.2-1.3) mg/dL AST (14-36) U/L ALT (7-56) U/L Alkaline Phosphatase 161 H (33-130) U/L Total Protein (5.8-8.3) g/dL Albumin (3.0-4.8) g/dL Globulin gm/dL Albumin/Globulin Ratio (1.1-1.8) Procalcitonin (0.19-0.49) NG/ML Laboratory Results - last 24 hr 01/04/18 01/07/18 01/07/18 06:05 09:30 13:00 WBC RBC Hgb Hct MCV MCH MCHC RDW Plt Count MPV Gran % Lymph % (Auto) [place] % (Auto) Eos % (Auto) Baso % (Auto) Gran # Lymph # (Auto) [place] # (Auto) Eos # (Auto) Baso # (Auto) PT INR pCO2 pO2 HCO3 ABG pH ABG Total CO2 ABG O2 Saturation ABG O2 Content ABG Base Excess ABG Hemoglobin ABG Carboxyhemoglobin POC ABG HHb (Measured) ABG Methemoglobin ABG O2 Capacity Hgb O2 Saturation FiO2 Sodium Potassium Chloride Carbon Dioxide Anion Gap BUN Creatinine Est GFR ( Amer) Est GFR (Non-Af Amer) Random Glucose Lactic Acid Calcium Phosphorus Magnesium [place] 63584 H ALT Alkaline Phosphatase 161 H Total Protein Albumin Globulin Albumin/Globulin Ratio Procalcitonin 0.86 H 01/07/18 01/07/18 01/07/18 15:47 15:47 15:47 WBC 22.5 H RBC 3.34 L Hgb 9.6 L Hct 31.3 L MCV 93.7 MCH 28.7 MCHC 30.7 L RDW 15.9 H Plt Count 53 L MPV 11.9 H Gran % 89.8 H Lymph % (Auto) 5.0 L [place] % (Auto) 5.2 Eos % (Auto) 0.0 L Baso % (Auto) 0.0 Gran # 20.21 H Lymph # (Auto) 1.1 L [place] # (Auto) 1.2 H Eos # (Auto) 0.0 Baso # (Auto) 0.01 PT 28.4 H INR 2.45 pCO2 pO2 HCO3 ABG pH ABG Total CO2 ABG O2 Saturation ABG O2 Content ABG Base Excess ABG Hemoglobin ABG Carboxyhemoglobin POC ABG HHb (Measured) ABG Methemoglobin ABG O2 Capacity Hgb O2 Saturation FiO2 Sodium Potassium Chloride Carbon Dioxide Anion Gap BUN Creatinine Est GFR ( Amer) Est GFR (Non-Af Amer) Random Glucose Lactic Acid 13.9 H* Calcium Phosphorus Magnesium Total Bilirubin AST ALT Alkaline Phosphatase Total Protein Albumin Globulin Albumin/Globulin Ratio Procalcitonin 01/07/18 01/08/18 01/08/18 15:47 05:00 06:00 WBC 19.8 H RBC 2.64 L Hgb 7.8 L Hct 27.0 L MCV 102.3 D MCH 29.5 MCHC 28.9 L RDW 17.6 H Plt Count 36 L* MPV 11.6 H Gran % 85.9 H Lymph % (Auto) 8.0 L [place] % (Auto) 6.0 Eos % (Auto) 0.0 L Baso % (Auto) 0.1 Gran # 17.00 H Lymph # (Auto) 1.6 [place] # (Auto) 1.2 H Eos # (Auto) 0.0 Baso # (Auto) 0.01 PT INR pCO2 38 pO2 216.0 H HCO3 7.8 L* ABG pH 6.92 L* ABG Total CO2 9.0 L ABG O2 Saturation 100.7 H ABG O2 Content 11.1 L ABG Base Excess -23.2 L ABG Hemoglobin 7.7 L ABG Carboxyhemoglobin 1.8 H POC ABG HHb (Measured) -0.7 L ABG Methemoglobin 1.2 ABG O2 Capacity 11.0 L Hgb O2 Saturation 97.7 FiO2 100.0 Sodium 143 Potassium 6.5 H* Chloride 104 Carbon Dioxide 12 L Anion Gap 34 H BUN 49 H Creatinine 2.4 H Est GFR ( Amer) 23 Est GFR (Non-Af Amer) 19 Random Glucose 146 H Lactic Acid Calcium 7.9 L Phosphorus Magnesium Total Bilirubin 3.5 H AST 85564 H ALT 4075 H Alkaline Phosphatase 185 H Total Protein 5.4 L Albumin 2.8 L Globulin 2.6 Albumin/Globulin Ratio 1.1 Procalcitonin 01/08/18 06:00 WBC RBC Hgb Hct MCV MCH MCHC RDW Plt Count MPV Gran % Lymph % (Auto) [place] % (Auto) Eos % (Auto) Baso % (Auto) Gran # Lymph # (Auto) [place] # (Auto) Eos # (Auto) Baso # (Auto) PT INR pCO2 pO2 HCO3 ABG pH ABG Total CO2 ABG O2 Saturation ABG O2 Content ABG Base Excess ABG Hemoglobin ABG Carboxyhemoglobin POC ABG HHb (Measured) ABG Methemoglobin ABG O2 Capacity Hgb O2 Saturation FiO2 Sodium 148 Potassium 8.0 H* D Chloride 109 H Carbon Dioxide 10 L Anion Gap 37 H BUN 43 H Creatinine 3.0 H Est GFR ( Amer) 18 Est GFR (Non-Af Amer) 15 Random Glucose 113 H Lactic Acid Calcium 6.5 L* Phosphorus 13.2 H Magnesium 2.1 Total Bilirubin 3.2 H AST 1524 H ALT 4120 H Alkaline Phosphatase 226 H D Total Protein 4.2 L Albumin 2.1 L Globulin 2.1 Albumin/Globulin Ratio 1.0 L Procalcitonin EKG/Cardiology Studies: Cardiology / EKG Studies 01/07/18 15:00 EKG [ELECTROCARDIOGRAM] Routine Comment: Reason For Exam: elevated troponin Critical Care Progress Note - Nutrition Nutrition: Nutrition Category Date Time Status NPO Diet [DIET] Diets 01/07/18 Breakfast Ordered Addendum Addendum: 01/08/18 14:29 ICU Attending Addendum: Patient seen and examined. Case reviewed on round with housestaff. Agree with resident note above with the following additions/exceptions: Dx: Cardiac arrest acute blood lose anemia myocardial ischemia shock liver acute renal failure CAD/CAGB COPD Afib As the patient continued to decline yesterday as evident by her persistent hypotension and acidosis, I continued conversations with Ana's son. We both agreed that making comfort a priority would be consistent with her wishes. 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 She eventually passed before the other family members arrived. Family aware. PCP service notified by resident. Lee Quezada MD [employer] Machine [employer]
[2018-01-08 14:41] LABS: BAND 6 % (0-2); LYMPHOCYTE 4 % (22.0-35.0); MONOCYTE 4 % (1.0-6.0); NEUTROPHIL 86 % (50.0-70.0)
[2018-01-08 14:42] LABS: ANISOCYTOSIS 1+; PLATELET ESTIMATE LOW (NORMAL)
[2018-01-08 14:43] LABS: ACANTHROCYTES SLIGHT
--- NOTE | 2018-01-08 16:24 | CARD ---
APPROVED REPORT Date of service: 01/07/2018 EKG Measurement Heart [id number] <Conclusion> Atrial Fibrillation with RVR Nonspecific intraventricular block Abnormal ECG
--- NOTE | 2018-01-08 19:42 | CP.PCM.PN ---
Subjective - Date & Time of Evaluation Date of Evaluation: 01/08/18 Time of Evaluation: 10:00 - Subjective Subjective: SUBJECTIVE: Patient was seen bedside. She had rapid response in the night. Was resuscitated low blood pressure, currently on the Levophed. She also has GI bleed , NG tube - dark-colored fluid been drained. She is sedated intubated. REVIEW OF SYSTEMS: Could not be obtained, sedated, intubated. PHYSICAL EXAMINATION: GENERAL: She is sedated, intubated and resection draining serosanguineous fluid. HEENT: Pupils reacting to light. Head atraumatic, normocephalic. Pallor positive. Mucosa dry. CHEST: Air entry present, equal, bilateral. sedated, intubated, on ventilator. CARDIOVASCULAR: S1, S2 normal. Tachycardia present. ABDOMEN: Soft, nontender, nondistended. BACK: Normal inspection. EXTREMITIES: No edema. NEURO: Sedated, intubated. SKIN: Dry and pale. MEDICATIONS: Reviewed. LABORATORY DATA: reviewed. ASSESSMENT/PLAN: .This is an 87-year-old female with Mckeon's esophagitis, cholecystectomy, chronic obstructive pulmonary disease, coronary artery disease with hemorrhagic shock, upper gastrointestinal bleed, multiorgan failure, respiratory distress, intubated sedated, acute kidney injury, ischemic liver. Had rapid response twice. Currently on pressors. Currently hypothermic on bear hugger. . Tachycardia on pressors, dopamine, Levophed. Cardiology consultation Dr. Vickers appreciated. Respiratory failure, intubated, sedated. Gastrointestinal bleed. Dr. Owusu following. Hematology, severe anemia, coagulopathy, status post 2 units of FFP for coagulopathy reversal. Acute renal failure. Poor prognosis. Discussed with the ICU resident. Verónica Cherry MD Objective - Vital Signs/Intake and Output Vital Signs (last 24 hours): Temp Pulse Resp BP Pulse Ox 96.8 F L 35 L 16 169/19 H 92 L 01/08/18 12:30 01/08/18 12:10 01/08/18 12:21 01/08/18 12:02 01/08/18 12:27 Intake and Output: 01/08/18 01/09/18 18:59 06:59 Intake Total 30 Balance 30 - Labs Labs: 01/08/18 06:00 01/08/18 06:00 PT 28.4 SECONDS (9.4-12.5) H 01/07/18 15:47 INR 2.45 01/07/18 15:47 APTT 29.5 Seconds (25.1-36.5) 01/07/18 01:05
--- NOTE | 2018-01-12 18:19 | PQF ---
PROVIDER RESPONSE TEXT: Pt with acute respiratory with hypercapnia REVIEWER QUERY TEXT: Respiratory Failure Acuity and Type Respiratory Failure is documented in the Medical Record. Please specify the type and acuity (includes suspected or probable) Such as: -- Acute respiratory failure - With hypoxia - With hypercapnia -- Chronic respiratory failure - With hypoxia - With hypercapnia -- Acute on chronic respiratory failure - With hypoxia - With hypercapnia -- Other, please specify The patient's Clinical Indicators include: Respiratory failure and hypoxia documented on notes of 01/07 and 01/08.Patient intubated and vented on 01/07. Please specify if RF is acute, chronic, or both. Thank you. (Contact info.--[email or web address]) Query created by: Leida Wade on 01/10/2018 10:21 AM Electronically signed by: Wilfred Cheatham MD 01/12/2018 6:16 PM
== END 2018-01-08 12:19 | DRG 871 ==
LOC: ED 18:19 → ERH 21:17 → 3RNO 22:59 → OBSVTOIN 01-03 09:26 → CCU 01-07 00:10
PROVIDERS: ADMIT Internal Medicine Nephrology; ATTEND Internal Medicine Nephrology
PROC: 5A1945Z Respiratory Ventilation, 24-96 Consecutive Hours (ICD-10-PCS; principal; 2018-01-07)
PROC: 0BH18EZ Insertion of Endotracheal Airway into Trachea, Via Natural or Artificial Opening Endoscopic (ICD-10-PCS; 2018-01-07)
PROC: 30233N1 Transfusion of Nonautologous Red Blood Cells into Peripheral Vein, Percutaneous Approach (ICD-10-PCS; 2018-01-07)
PROC: 30233K1 Transfusion of Nonautologous Frozen Plasma into Peripheral Vein, Percutaneous Approach (ICD-10-PCS; 2018-01-07)
PROC: 05HM33Z Insertion of Infusion Device into Right Internal Jugular Vein, Percutaneous Approach (ICD-10-PCS; 2018-01-07)
PROC: B543ZZA Ultrasonography of Right Jugular Veins, Guidance (ICD-10-PCS; 2018-01-07)
PROC: 5A12012 Performance of Cardiac Output, Single, Manual (ICD-10-PCS; 2018-01-07)
DX: A41.9 Sepsis, unspecified organism (principal); I21.4 Non-ST elevation (NSTEMI) myocardial infarction; J18.9 Pneumonia, unspecified organism; K72.00 Acute and subacute hepatic failure without coma; R65.21 Severe sepsis with septic shock; J96.02 Acute respiratory failure with hypercapnia; F13.239 Sedative, hypnotic or anxiolytic dependence with withdrawal, unspecified; E87.2 Acidosis; J44.0 Chronic obstructive pulmonary disease with (acute) lower respiratory infection; K92.2 Gastrointestinal hemorrhage, unspecified; N17.9 Acute kidney failure, unspecified; D68.9 Coagulation defect, unspecified; I47.2 Ventricular tachycardia; R41.82 Altered mental status, unspecified; E78.5 Hyperlipidemia, unspecified; E86.1 Hypovolemia; E87.5 Hyperkalemia; G89.29 Other chronic pain; F41.9 Anxiety disorder, unspecified; I08.1 Rheumatic disorders of both mitral and tricuspid valves; I11.0 Hypertensive heart disease with heart failure; I25.10 Atherosclerotic heart disease of native coronary artery without angina pectoris; I46.9 Cardiac arrest, cause unspecified; I48.0 Paroxysmal atrial fibrillation; I50.9 Heart failure, unspecified; K21.9 Gastro-esophageal reflux disease without esophagitis; K22.70 Barrett's esophagus without dysplasia; Z87.19 Personal history of other diseases of the digestive system; R57.8 Other shock; D64.9 Anemia, unspecified; R09.82 Postnasal drip; Z98.42 Cataract extraction status, left eye; Z98.41 Cataract extraction status, right eye; K59.00 Constipation, unspecified; R39.15 Urgency of urination; R35.0 Frequency of micturition; R32 Unspecified urinary incontinence; Z90.49 Acquired absence of other specified parts of digestive tract; R40.2412 Glasgow coma scale score 13-15, at arrival to emergency department; Z91.14 Patient's other noncompliance with medication regimen; R19.7 Diarrhea, unspecified; R74.8 Abnormal levels of other serum enzymes; D69.6 Thrombocytopenia, unspecified; Z66 Do not resuscitate; Z87.891 Personal history of nicotine dependence; Z95.1 Presence of aortocoronary bypass graft; Z95.2 Presence of prosthetic heart valve